=== PATIENT | female | born 1960 | race Caucasian/White ===

== ENCOUNTER 2016-08-25 10:50 | Inpatient (IN) | payer BC ==
[2016-08-25] VITALS (15 sets, daily range): BP systolic 129–186; BP diastolic 72–97
[~2016-08-25] VITALS: Ht 167.6 cm; Wt 46.9 kg
[~2016-08-25 10:50] MED LIST: MESA1.2T PO; OLAN2.5T3 PO; TIZA4TAB PO; TRAM50TA PO
[2016-08-25] MEDS ORDERED: ALBUTEROL SULFATE 2.5 MG/3 ML NEBU. NEB PRN (12:45)
[2016-08-25] MEDS ORDERED: hydrALAZINE 20 MG/ML VIAL. IVP PRN (12:45)
[2016-08-25] MEDS ORDERED: ONDANSETRON PF 4 MG/2 ML VIAL. IV PRN (12:45)
[2016-08-25 12:51] LABS: HCO3 ABG 22 mmol/L (21-28); PCO2 ABG 31 mmHg (35-46); PH ABG 7.48 (7.35-7.45); PO2 ABG 58 mmHg (75-108); SAT O2 ABG 90 % (92-99)
[2016-08-25] MEDS: PIPERACILLIN/TAZOBACTAM 3.375 GM in IV NORMAL SALINE 50ML 50 ML IV SCH ×3 (13:11→23:37)
--- NOTE | 2016-08-25 13:38 | PDOC ---
Provider Note Provider Note dictated diffuse worsening extensive multi-lobar pneumonia/ suspected empyema (multi- loculated fluid) Underlying suspected severe COPD acute hypoxic RF due to above Needs BS antibiotics BIPAP , 100% FIO2 hold intubation right sided chest tube May need intra-pleural TPA see orders HERBER PERALES MD Aug 25, 2016 13:38
[2016-08-25] MEDS ORDERED: PIP/TAZO PER PHARMACY MC PRN (13:45)
[2016-08-25] MEDS ORDERED: LIDOCAINE 1% / SOD BICARB 8.4% 20 ML VIAL. IJ ONE ×2 (14:00→15:00)
[2016-08-25 14:04] LABS: FIO2 ABG 99
--- NOTE | 2016-08-25 14:09 | PDOC1 ---
History and Physical Current Medications Current Medications Current Medications Medications (Trade) Dose Ordered Sig/Elizabeth Start Time Stop Time Status Last Admin Dose Admin Acetaminophen (Tylenol) 325 mg PRN Q6HRS PRN 08/25/16 12:45 Acetaminophen/ Hydrocodone Bitart (Lortab 5/325) 1 tab PRN Q6HRS PRN 08/25/16 12:45 Albuterol Sulfate 2.5 mg 2.5 mg PRN Q4HRS PRN 08/25/16 12:45 Hydralazine HCl (Apresoline) 10 mg PRN Q4HRS PRN 08/25/16 12:45 Levofloxacin/ Dextrose (LEVAQUIN 750mg PREMIX) 150 ml @ 100 mls/hr Q24H 08/25/16 14:00 Lidocaine/Sodium Bicarbonate (Buffered Lidocaine 1%) 20 ml STK-MED ONCE 08/25/16 14:00 08/25/16 14:01 DC Linezolid (Zyvox Premix) 300 ml @ 300 mls/hr Q12HR 08/25/16 14:00 Ondansetron HCl (Zofran) 4 mg PRN Q8HRS PRN 08/25/16 12:45 Piperacillin Sod/ Tazobactam Sod 3.375 gm/Sodium Chloride 50 ml @ 100 mls/hr Q6HRS 08/25/16 13:00 08/25/16 13:11 100 MLS/HR Piperacillin Sod/ Tazobactam Sod 1 each 1 each PRN DAILY PRN 08/25/16 13:45 Allergies Allergies Allergies Coded Allergies Type Severity Reaction Last Updated Verified No Known Drug Allergies 01/15/16 No ROS Review of System CONSTITUTIONAL: No fever or chills EYES: No recent changes SKIN: No rash or itching CARDIOVASCULAR: No chest pain, syncope, palpitations, or edema RESPIRATORY: SOB or cough GASTROINTESTINAL: No nausea, vomiting or abdominal pain NEUROLOGICAL: No headaches or weakness ENDOCRINE: No cold or heat intolerance GENITOURINARY: No urgency or frequency of urination MUSCULOSKELETAL: No back pain or joint pain LYMPHATICS: No enlarged lymph nodes PSYCHIATRIC: No anxiety or depression Physical Exam Physical Exam GEN.: apparent distress. Alert and oriented. on BIPAP HEENT: Head is normocephalic, atraumatic NECK: Supple. NO JVD LUNGS: Clear to auscultation. ANTERIOR HEART: RRR, S1, S2 present. Peripheral pulses intact ABDOMEN: Soft, nontender. Positive bowel sounds. EXTREMITIES: Without any cyanosis. NEUROLOGIC: Normal speech, normal tone PSYCHIATRIC: Normal affect, Anxious SKIN: No visible ulcerations Vitals Vitals Vital Signs Date Time Temp Pulse Resp B/P Pulse Ox O2 Delivery O2 Flow Rate FiO2 08/25/16 13:10 100 BiPAP/CPAP Labs Labs Laboratory Tests Test 08/25/16 12:46 O2 Saturation 90% (92-99) Arterial Blood pH 7.48 (7.35-7.45) Arterial Blood pCO2 at Patient Temp 31mmHg (35-46) Arterial Blood pO2 at Patient Temp 58mmHg (75-108) Arterial Blood HCO3 22mmol/L (21-28) Arterial Blood Base Excess -1mmol/L (-3-3) FiO2 99 Laboratory Tests Test 08/25/16 12:46 O2 Saturation 90% (92-99) Arterial Blood pH 7.48 (7.35-7.45) Arterial Blood pCO2 at Patient Temp 31mmHg (35-46) Arterial Blood pO2 at Patient Temp 58mmHg (75-108) Arterial Blood HCO3 22mmol/L (21-28) Arterial Blood Base Excess -1mmol/L (-3-3) FiO2 99 VTE Prophylaxis Ordered VTE Prophylaxis Devices: Yes VTE Pharmacological Prophylaxi: Yes Assessment/Plan Assessment/Plan Respiratory failure NAE CANNON MD Aug 25, 2016 14:09
[2016-08-25] MEDS: HYDROCODONE/APAP 5/325MG TABLET. PO PRN ×2 (15:42→22:12)
--- NOTE | 2016-08-25 15:47 | RAD ---
EXAM: Chest, single view. HISTORY: Chest tube placement. COMPARISON: 01/28/2013. FINDINGS: Frontal views of the chest are obtained. There are diffuse left greater than right lung multifocal infiltrates. There is a small right pleural effusion with suspected partial loculation or superimposed pleural thickening. There is a right basilar pleural drainage catheter. No pneumothorax is seen. The heart is normal in size. There is a right PICC with the tip extending cephalad in the right internal jugular vein. There are healed rib fractures. There is right greater than left hilar prominence. IMPRESSION: 1. Diffuse left greater than right lung multifocal infiltrate. Follow-up to confirm resolution. 2. Small right pleural effusion, partially loculated or associated with pleural thickening. There is a right basilar pleural drainage catheter. No pneumothorax is seen. 3. Right greater than left hilar enlargement possibly due to lymphadenopathy. 4. Right PICC extending cephalad beyond the [id number] in the right internal jugular vein. Catheter repositioning is indicated.
--- NOTE | 2016-08-25 16:03 | PDOC ---
Exam Mailing Clerk Mailing Clerk Shahrzad Global Compensation Analyst Global Compensation Analyst F [place] Pre-Procedure Diagnosis Pre-Procedure Diagnosis 55 YO female with pneumonia, possible empyema, and resp failure on BiPAP. Chest tube insertion has been requested by Pulmonary. Post-Procedure Diagnosis Post-Procedure Diagnosis Same Procedure Performed Procedure Performed Bedside ICU sono guided right chest tube insertion, with Dx thoracentesis Type of Anesthesia Type of Anesthesia Local Estimated Blood Loss EBL: Minimal Specimens Specimans 130 cc whitish-cloudy right pleural fluid to lab per Dr Brown Drain/Tubes Drains/Tubes 14F locking pigtail right chest tube---to PleurEvac. Condition of Patient Condition of Patient No change. Resp failure on BiPAP. No apparent complication. Disposition Disposition Chest tube to wall suction at -20 cm H2O. Chest tube management per Dr Brown. Full report to follow. STAT pCXR requested for chest tube position. PATRICIA BOWMAN MD Aug 25, 2016 16:03
[2016-08-25] MEDS ORDERED: INFLUENZA VAX SCREEN BY RX. MC ONE (17:00)
[2016-08-25] MEDS ORDERED: PNEUMOCOCCAL VAX SCREEN BY RX. MC ONE (17:00)
[2016-08-25] MEDS: ACETAMINOPHEN 325 MG TABLET. PO PRN (19:39)
[2016-08-26] VITALS (13 sets, daily range): BP systolic 87–174; BP diastolic 46–89
--- NOTE | 2016-08-26 02:52 | ACF ---
Admission Forms Criteria RESPIRATORY FAILURE [facility] Clinical Indications for Admission to Inpatient Care (Place 'X' for any and all applicable criteria): Hospital admission is needed for appropriate care of the patient because of acute respiratory failure or insufficiency as indicated by ANY ONE of the following(1)(2)(3)(4)(5)(6)(7)(8): [X]I. Mechanical ventilation needed (acute invasive or noninvasive) [ ]II. Severe ventilation deficit as indicated by ANY ONE of the following (9) [ ]a) Respiratory acidosis (pH less than 7.32 and partial pressure of carbon dioxide greater than 40 mm Hg (5.3 kPa)) [ ]b) Partial pressure of carbon dioxide greater than 44 mm Hg (5.9 kPa ) (new) [ ]c) Airflow measurements less than 25% of predicted (eg, peak expiratory flow rate less than 100 L/minute) [ ]d) Forced vital capacity less than 15 mL/kg of ideal body weight, or 50% decrease in vital capacity from baseline [ ]III. Noncardiac pulmonary edema not resolving with rapid emergency treatment (8) [ ]IV. Severe respiratory distress as indicated by ANY ONE of the following: [ ]a) Severe tachypnea (respiratory rate greater than 30, greater than 45 for 6-month-old, greater than 60 for ) [ ]b) Severe hypoxemia (partial pressure of oxygen less than 50 mm Hg ( 6.7 kPa) on greater than 50% oxygen or partial pressure of oxygen to FIO2 ratio less than 200) [ ]c) Mental status deterioration from respiratory disease [ ]V. Airway obstruction or inadequate protection [A](10)(11) The original [employer] content created by [employer] has been revised. The portions of the content which have been revised are identified through the use of italic text or in bold, and [employer] has neither reviewed nor approved the modified material. All other unmodified content is copyright [employer]. Please see references footnoted in the original [employer] edition 2016 Admission Criteria Met?: Yes FRANKIE GARDNER Aug 26, 2016 02:52
--- NOTE | 2016-08-26 02:59 | CONS ---
DATE OF CONSULTATION: ATTENDING PHYSICIAN: Dr. Pak. REASON FOR CONSULTATION: Respiratory failure, extensive pneumonia, empyema and marked leukocytosis. HISTORY OF PRESENT ILLNESS: The patient is a 55-year-old female who has been a smoker for 40 years. She presented to [facility] on 08/21/2016 with complaint of worsening cough and pleuritic type chest pain. She had increasing shortness of breath as well. The patient's cough was nonproductive. In the Emergency Room she was found to have extreme leukocytosis with a white cell count 57,000. She was also tachycardic and lactic acid was 4.1. Sepsis was initial diagnosis. Her chest x-ray on the showed right lower lobe pneumonia with small parapneumonic effusion. The patient has been on multiple antibiotics while at [facility] including Rocephin, Levaquin and azithromycin. However, her hospital course has continued to worsen. She underwent CT abdomen and pelvis on the , which showed right lower lobe and right middle lobe pneumonia with multiloculated parapneumonic effusion versus empyema. Today, I got a call from Dr. Osullivan who requested to be transferred to [place] ICU because of progressive dyspnea and hypoxia. Arterial blood gases obtained on high flow oxygen had shown a pO2 of only 48. The patient was placed on 100% oxygen for the transfer. I have reviewed CT chest prior to her discharge from [facility] and it shows worsening consolidation in the right lung with multiloculated right pleural effusion and also extensive infiltrate involving the left lower lobe which was a new finding compared to 3 days ago. She was hypoxic on arrival. Arterial blood gases reveal a pH of 7.47, pCO2 of 30 and a pO2 of 58 on nonrebreather mask. At present, I have placed her on a BiPAP at 100% FiO2 and she seems to be comfortable. Infectious Disease also being consulted. PAST MEDICAL HISTORY: Significant for history of suspected severe COPD. PAST SURGICAL HISTORY: Including total abdominal hysterectomy and bilateral salpingo-oophorectomy, left nephrectomy for unclear reason. ALLERGIES: None. MEDICATIONS: From [facility] overall reviewed. FAMILY HISTORY: Father is . Mother is still alive and has breast cancer. SOCIAL HISTORY: She is . She has 2 children. She smoked for 40 years and she drinks Mary Beth every night. She works for [employer]. REVIEW OF SYSTEMS: Twelve-point systems obtained. Pertinent positives discussed in history of present illness, otherwise noncontributory. All systems that were negative were reviewed as well. PHYSICAL EXAMINATION: GENERAL: She is mildly tachypneic. VITAL SIGNS: Pulse ox is 97-98% on 100% BiPAP. Blood pressure is stable. She has pulse in the 90s. LABORATORY DATA: Reviewed. White cell count was 39,000. Hemoglobin 9.6 and a platelet count of 500. Her ABGs as discussed in history of present illness with a pH of 7.49, pCO2 of 27, pO2 of 48 on 32% FiO2. Her lactic acid on admission was 4.1. BUN 38 and a creatinine of 1.6 on the 9. On BUN is 16 and a creatinine 0.9. Albumin is 1.4. IMPRESSION: 1. Acute progressive hypoxic respiratory failure, now requiring 100% FiO2 via BiPAP. This is secondary to extensive multilobar community-acquired pneumonia. I cannot exclude the possibility of aspiration while in the hospital as she did have emesis for a few days and also prior to admission. She now also has multiloculated effusion and I suspect early empyema. 2. Suspected underlying chronic obstructive pulmonary disease, could be severe. 3. Marked leukocytosis with a white cell count of 39,000. This is related to underlying extensive pneumonia and sepsis. 4. Severe protein-calorie malnutrition with an albumin level of 1.4. 5. Lactic acidosis present on admission on 08/21/2016 at [facility] related to sepsis from pneumonia. 6. Normal ejection fraction by echo with a pulmonary artery systolic pressure of 49. Suspect this is secondary to underlying chronic obstructive pulmonary disease. RECOMMENDATIONS: 1. We will need to broaden the antibiotic coverage. I will add Zyvox, Zosyn and Levaquin. 2. Consult Infectious Disease and follow their recommendation. 3. We will need a CT-guided chest tube to rule out empyema. We will review the fluid analysis as well. Rule out transudate versus exudate. 4. Bronchodilators. 5. Deep venous thrombosis prophylaxis. 6. Stress ulcer prophylaxis. 7. Continue BiPAP with 100% FiO2 and follow ABGs as needed. 8. At this point, she does not need intubation unless her clinical condition deteriorates. 9. Monitor white cell count. 10. Repeat lactic acid level. Discussed with Dr. Osullivan, discussed with RN and RT and patients . We will follow along with you. Critical care time 40 minutes. HERBER PERALES MD DR: LEXIE/jacob JOB#: [id number] / [id number] LETHA
[2016-08-26] MEDS: HYDROCODONE/APAP 5/325MG TABLET. PO PRN ×3 (04:50→17:47)
[2016-08-26] MEDS: PIPERACILLIN/TAZOBACTAM 3.375 GM in IV NORMAL SALINE 50ML 50 ML IV SCH ×4 (05:40→23:36)
[2016-08-26 06:24] LABS: BASO # 0.1 x10^3/uL (0.0-0.2); BASO % 0 % (0-3); EOS % 1 % (0-3); HEMATOCRIT 30.4 % (36.0-47.0); LYMPH # 1.3 x10^3/uL (1.0-4.8); LYMPH % 4 % (24-48); MEAN CORPUSCULAR HEMOGLOBIN 28 pg (25-35); MEAN CORPUSCULAR HGB CONC 33 g/dL (31-37); MEAN CORPUSCULAR VOLUME 85 fL (79-100); MONO % 1 % (0-9); NEUT % 94 % (31-73); PLATELET COUNT 441 x10^3/uL (140-400); RED BLOOD COUNT 3.58 x10^6/uL (3.50-5.40); RED CELL DISTRIBUTION WIDTH 14.7 % (11.5-14.5); WHITE BLOOD COUNT 32.2 x10^3/uL (4.0-11.0)
[2016-08-26 06:31] LABS: CALCIUM 7.7 mg/dL (8.5-10.1); CREATININE 0.8 mg/dL (0.6-1.0); GFR 74.5; POTASSIUM 3.2 mmol/L (3.5-5.1)
--- NOTE | 2016-08-26 06:46 | RAD ---
Ultrasound-guided right chest tube insertion Indication: 55-year-old female ICU patient with pneumonia, empyema, and respiratory failure. Right chest tube insertion has been requested by pulmonary. Anesthesia: Local only Procedure: Informed consent was obtained from the patient's . This procedure was performed bedside in the intensive care unit, with the patient in the left lateral decubitus position in her hospital bed. Preliminary ultrasound examination of right chest confirm the presence of a moderately large right pleural effusion. A skin site suitable for chest tube insertion along lateral aspect of lower right hemithorax was selected, marked, documented with a hard copy ultrasound image, and prepped and draped in the usual sterile fashion. Using aseptic technique, local anesthesia, and direct ultrasound guidance, a small micropuncture sheath was successfully introduced into low right lateral pleural space. The micropuncture sheath was removed over a guidewire. The percutaneous tract was dilated and a 14 Georgian locking pigtail chest tube was easily introduced. Approximately 130 cc of whitish-turbid fluid was aspirated through the chest tube, and was submitted to the clinical laboratory per referring digital publishing specialist' s request. The chest tube was then connected to Pleur-evac, and was secured at the skin exit site utilizing suture and sterile dressing. Patient tolerated the procedure well without apparent complication. A stat portable chest x-ray was requested for chest tube position. Impression: Successful, uneventful ultrasound-guided insertion of a 14 Georgian locking pigtail right chest tube, bedside in the intensive care unit, as described.
--- NOTE | 2016-08-26 07:38 | RAD ---
EXAM: Chest, single view. HISTORY: Pneumonia. COMPARISON: 08/25/2016. FINDINGS: A frontal view of the chest is obtained. There has been minimal interval decrease in diffuse left greater than right multifocal infiltrate. There is a stable small right pleural effusion with loculated pleural fluid or pleural thickening. There is a right basilar pleural drainage catheter unchanged in position. There is no pneumothorax. The heart is normal in size. Air is a right hilar enlargement likely due to lymphadenopathy.. There is a right PICC with the tip extending cephalad into the right internal jugular vein. There are multiple healed or healing right rib fractures. IMPRESSION: 1. Minimal interval decrease in left greater than right multifocal pneumonia. 2. Stable small right pleural effusion with suspected loculated lateral right pleural fluid component or pleural thickening. There is a right pleural drainage catheter unchanged in position. 3. Right PICC exiting cephalad into the right internal jugular vein. Catheter repositioning is indicated.
--- NOTE | 2016-08-26 08:00 | PDOC ---
Infectious Disease Note Vital Sign Vital Signs Vital Signs Date Time Temp Pulse Resp B/P Pulse Ox O2 Delivery O2 Flow Rate FiO2 08/26/16 06:00 88 27 158/68 92 Room Air 08/26/16 04:00 97.3 97.3 08/26/16 04:00 3.0 Labs Lab Laboratory Tests Test 08/25/16 12:46 08/25/16 14:45 08/26/16 05:45 O2 Saturation 90% (92-99) Arterial Blood pH 7.48 (7.35-7.45) Arterial Blood pCO2 at Patient Temp 31mmHg (35-46) Arterial Blood pO2 at Patient Temp 58mmHg (75-108) Arterial Blood HCO3 22mmol/L (21-28) Arterial Blood Base Excess -1mmol/L (-3-3) FiO2 99 Body Fluid pH 6.9 White Blood Count 32.2x10^3/uL (4.0-11.0) Red Blood Count 3.58x10^6/uL (3.50-5.40) Hemoglobin 10.0g/dL (12.0-15.5) Hematocrit 30.4% (36.0-47.0) Mean Corpuscular Volume 85fL (79-100) Mean Corpuscular Hemoglobin 28pg (25-35) Mean Corpuscular Hemoglobin Concent 33g/dL (31-37) Red Cell Distribution Width 14.7% (11.5-14.5) Platelet Count 441x10^3/uL (140-400) Neutrophils (%) (Auto) 94% (31-73) Lymphocytes (%) (Auto) 4% (24-48) Monocytes (%) (Auto) 1% (0-9) Eosinophils (%) (Auto) 1% (0-3) Basophils (%) (Auto) 0% (0-3) Neutrophils # (Auto) 30.4x10^3uL (1.8-7.7) Lymphocytes # (Auto) 1.3x10^3/uL (1.0-4.8) Monocytes # (Auto) 0.2x10^3/uL (0.0-1.1) Eosinophils # (Auto) 0.2x10^3/uL (0.0-0.7) Basophils # (Auto) 0.1x10^3/uL (0.0-0.2) Sodium Level 137mmol/L (136-145) Potassium Level 3.2mmol/L (3.5-5.1) Chloride Level 102mmol/L (98-107) Carbon Dioxide Level 27mmol/L (21-32) Anion Gap 8 (6-14) Blood Urea Nitrogen 10mg/dL (7-20) Creatinine 0.8mg/dL (0.6-1.0) Estimated GFR (Cockcroft-Gault) 74.5 Glucose Level 85mg/dL (70-99) Calcium Level 7.7mg/dL (8.5-10.1) Objective Assessment CAP Rt empyema Leukocytosis Fever Sepsis with lactic acidosis Suspected COPD Hypoxia Plan Plan of Care d/c zyvox cont levaquin and zosyn check urine strep pneumo antigen check cultures supportive care adv to quit smoking FREDA RUCKER MD Aug 26, 2016 08:00
--- NOTE | 2016-08-26 08:01 | PDOC ---
PULMONARY PROGRESS NOTES Subjective is on 02, has sob, pain on ct site. has cough, did smoke Vitals Vital Signs Date Time Temp Pulse Resp B/P Pulse Ox O2 Delivery O2 Flow Rate FiO2 08/26/16 06:00 88 27 158/68 92 Room Air 08/26/16 04:00 97.3 97.3 08/26/16 04:00 3.0 Comments ros as above, other sys otherwise neg General: Alert HEENT: Other (nc at perrl, throat nose clear) Lungs: Crackles, Other (r ct) Cardiovascular: S1, S2 Abdomen: Soft, Non-tender, Other (no mass) Neuro Exam: Alert, Oriented, No Focal Findings Extremities: No Edema Skin: Warm Labs Laboratory Tests Test 08/25/16 12:46 08/25/16 14:45 08/26/16 05:45 O2 Saturation 90% (92-99) Arterial Blood pH 7.48 (7.35-7.45) Arterial Blood pCO2 at Patient Temp 31mmHg (35-46) Arterial Blood pO2 at Patient Temp 58mmHg (75-108) Arterial Blood HCO3 22mmol/L (21-28) Arterial Blood Base Excess -1mmol/L (-3-3) FiO2 99 Body Fluid pH 6.9 White Blood Count 32.2x10^3/uL (4.0-11.0) Red Blood Count 3.58x10^6/uL (3.50-5.40) Hemoglobin 10.0g/dL (12.0-15.5) Hematocrit 30.4% (36.0-47.0) Mean Corpuscular Volume 85fL (79-100) Mean Corpuscular Hemoglobin 28pg (25-35) Mean Corpuscular Hemoglobin Concent 33g/dL (31-37) Red Cell Distribution Width 14.7% (11.5-14.5) Platelet Count 441x10^3/uL (140-400) Neutrophils (%) (Auto) 94% (31-73) Lymphocytes (%) (Auto) 4% (24-48) Monocytes (%) (Auto) 1% (0-9) Eosinophils (%) (Auto) 1% (0-3) Basophils (%) (Auto) 0% (0-3) Neutrophils # (Auto) 30.4x10^3uL (1.8-7.7) Lymphocytes # (Auto) 1.3x10^3/uL (1.0-4.8) Monocytes # (Auto) 0.2x10^3/uL (0.0-1.1) Eosinophils # (Auto) 0.2x10^3/uL (0.0-0.7) Basophils # (Auto) 0.1x10^3/uL (0.0-0.2) Sodium Level 137mmol/L (136-145) Potassium Level 3.2mmol/L (3.5-5.1) Chloride Level 102mmol/L (98-107) Carbon Dioxide Level 27mmol/L (21-32) Anion Gap 8 (6-14) Blood Urea Nitrogen 10mg/dL (7-20) Creatinine 0.8mg/dL (0.6-1.0) Estimated GFR (Cockcroft-Gault) 74.5 Glucose Level 85mg/dL (70-99) Calcium Level 7.7mg/dL (8.5-10.1) Laboratory Tests Test 08/25/16 12:46 08/25/16 14:45 08/26/16 05:45 O2 Saturation 90% (92-99) Arterial Blood pH 7.48 (7.35-7.45) Arterial Blood pCO2 at Patient Temp 31mmHg (35-46) Arterial Blood pO2 at Patient Temp 58mmHg (75-108) Arterial Blood HCO3 22mmol/L (21-28) Arterial Blood Base Excess -1mmol/L (-3-3) FiO2 99 Body Fluid pH 6.9 White Blood Count 32.2x10^3/uL (4.0-11.0) Red Blood Count 3.58x10^6/uL (3.50-5.40) Hemoglobin 10.0g/dL (12.0-15.5) Hematocrit 30.4% (36.0-47.0) Mean Corpuscular Volume 85fL (79-100) Mean Corpuscular Hemoglobin 28pg (25-35) Mean Corpuscular Hemoglobin Concent 33g/dL (31-37) Red Cell Distribution Width 14.7% (11.5-14.5) Platelet Count 441x10^3/uL (140-400) Neutrophils (%) (Auto) 94% (31-73) Lymphocytes (%) (Auto) 4% (24-48) Monocytes (%) (Auto) 1% (0-9) Eosinophils (%) (Auto) 1% (0-3) Basophils (%) (Auto) 0% (0-3) Neutrophils # (Auto) 30.4x10^3uL (1.8-7.7) Lymphocytes # (Auto) 1.3x10^3/uL (1.0-4.8) Monocytes # (Auto) 0.2x10^3/uL (0.0-1.1) Eosinophils # (Auto) 0.2x10^3/uL (0.0-0.7) Basophils # (Auto) 0.1x10^3/uL (0.0-0.2) Sodium Level 137mmol/L (136-145) Potassium Level 3.2mmol/L (3.5-5.1) Chloride Level 102mmol/L (98-107) Carbon Dioxide Level 27mmol/L (21-32) Anion Gap 8 (6-14) Blood Urea Nitrogen 10mg/dL (7-20) Creatinine 0.8mg/dL (0.6-1.0) Estimated GFR (Cockcroft-Gault) 74.5 Glucose Level 85mg/dL (70-99) Calcium Level 7.7mg/dL (8.5-10.1) Medications Active Scripts Medications Dose Route/Sig Days Date Category Zyprexa (Olanzapine) 2.5 Mg Tablet 1 Tab PO QHS 01/15/16 Reported Tizanidine Hcl 4 Mg Tablet 4 Mg PO TID PRN 01/14/16 Reported Tramadol Hcl 50 Mg Tablet 50 Mg PO BID PRN 01/14/16 Reported Lialda (Mesalamine) 1.2 Gm Tablet.dr 4 Tab PO DAILY 01/14/16 Reported Comments cxr reviewed, 1. Minimal interval decrease in left greater than right multifocal pneumonia. 2. Stable small right pleural effusion with suspected loculated lateral right pleural fluid component or pleural thickening. There is a right pleural drainage catheter unchanged in position. 3. Right PICC exiting cephalad into the right internal jugular vein. Catheter repositioning is indicated. Impression . IMPRESSION: 1. Acute hypoxic respiratory failure, This is secondary to extensive multilobar community-acquired pneumonia. I cannot exclude the possibility of aspiration while in the hospital as she did have emesis for a few days and also prior to admission. She now also has multiloculated effusion and I suspect early empyema. 2. Suspected underlying chronic obstructive pulmonary disease, could be severe. 3. leukocytosis This is related to underlying extensive pneumonia and sepsis. 4. Severe protein-calorie malnutrition with an albumin level of 1.4. 5. Lactic acidosis present on admission on 08/21/2016 at [facility] related to sepsis from pneumonia. 6. Normal ejection fraction by echo with a pulmonary artery systolic pressure of 49. Suspect this is secondary to underlying chronic obstructive pulmonary disease. 7. smoker Plan . RECOMMENDATIONS: 1. Zosyn and Levaquin. 2. Consult Infectious Disease and follow their recommendation. 3. cont chest tube. We will review the fluid analysis as well. Rule out transudate versus exudate. 4. Bronchodilators. 5. Deep venous thrombosis prophylaxis. 6. Stress ulcer prophylaxis. 7. Continue BiPAP prn 8. 02 titration 9. Monitor white cell count. 10. Repeat lactic acid level. 11. advised to quit smoking, discussed w pt, HARJINDER Price MD Aug 26, 2016 08:01
[2016-08-26 08:15] LABS: HCO3 ABG 24 mmol/L (21-28); PCO2 ABG 27 mmHg (35-46); SAT O2 ABG 88 % (92-99)
[2016-08-26 08:19] LABS: PH ABG 7.56 (7.35-7.45); PO2 ABG 50 mmHg (75-108)
[2016-08-26] MEDS: FENTANYL PF 100 MCG/2 ML VIAL. IV PRN (08:28)
[2016-08-26] MEDS: ACETAMINOPHEN 325 MG TABLET. PO PRN (08:29)
[2016-08-26] MEDS: ENOXAPARIN 40 MG/0.4 ML DISP.SYRIN. SQ SCH (08:29)
[2016-08-26] MEDS ORDERED: FLU VACC QUAD 2016-17 (36MOS+)/PF 0.5 ML SYRINGE. VAX IM ONE (09:00)
[2016-08-26] MEDS ORDERED: PNEUMOC CONJ VACC 23-VALENT 0.5 ML VIAL. VAX IM ONE (09:00)
[2016-08-26] MEDS ORDERED: POTASSIUM CHLORIDE 20 MEQ TABLET.ER. PO ONE (10:45)
--- NOTE | 2016-08-26 10:45 | PDOC ---
PROGRESS NOTES Chief Complaint Chief Complaint cc: respiratory failure e A/P SEPSIS poa EMPYEMA RT S/P thoracentesis, on chest tube Acute respiratory failure Hypoxia Leucocytosis Chronic diarrhea, ?UC Migraines Right chest pain, MSK Plan s/p chest tube, follow cx, ID following, Levaquin and zyvox supplemental oxygen Replace potassium follow blood cx Pulmonolgy following Intake and out put of chest tube pain control with fentanyl , prn norco PRN BIPAP Prognosis guarded. History of Present Illness History of Present Illness better no fever Pain worse Vitals Vitals Vital Signs Date Time Temp Pulse Resp B/P Pulse Ox O2 Delivery O2 Flow Rate FiO2 08/26/16 09:00 22 95 Nasal Cannula 4.0 08/26/16 08:00 70 153/81 08/26/16 07:00 97.4 97.4 Physical Exam General: Alert, Oriented X3 Heart: Normal S1, Normal S2 Lungs: Crackles, Other (r ct) Abdomen: Normal bowel sounds Extremities: No clubbing, No cyanosis Labs LABS Laboratory Tests Test 08/25/16 12:46 08/25/16 14:45 08/26/16 05:45 08/26/16 08:10 O2 Saturation 90% (92-99) 88% (92-99) Arterial Blood pH 7.48 (7.35-7.45) 7.56 (7.35-7.45) Arterial Blood pCO2 at Patient Temp 31mmHg (35-46) 27mmHg (35-46) Arterial Blood pO2 at Patient Temp 58mmHg (75-108) 50mmHg (75-108) Arterial Blood HCO3 22mmol/L (21-28) 24mmol/L (21-28) Arterial Blood Base Excess -1mmol/L (-3-3) 2mmol/L (-3-3) FiO2 99 1 lpm nc Body Fluid pH 6.9 White Blood Count 32.2x10^3/uL (4.0-11.0) Red Blood Count 3.58x10^6/uL (3.50-5.40) Hemoglobin 10.0g/dL (12.0-15.5) Hematocrit 30.4% (36.0-47.0) Mean Corpuscular Volume 85fL (79-100) Mean Corpuscular Hemoglobin 28pg (25-35) Mean Corpuscular Hemoglobin Concent 33g/dL (31-37) Red Cell Distribution Width 14.7% (11.5-14.5) Platelet Count 441x10^3/uL (140-400) Neutrophils (%) (Auto) 94% (31-73) Lymphocytes (%) (Auto) 4% (24-48) Monocytes (%) (Auto) 1% (0-9) Eosinophils (%) (Auto) 1% (0-3) Basophils (%) (Auto) 0% (0-3) Neutrophils # (Auto) 30.4x10^3uL (1.8-7.7) Lymphocytes # (Auto) 1.3x10^3/uL (1.0-4.8) Monocytes # (Auto) 0.2x10^3/uL (0.0-1.1) Eosinophils # (Auto) 0.2x10^3/uL (0.0-0.7) Basophils # (Auto) 0.1x10^3/uL (0.0-0.2) Sodium Level 137mmol/L (136-145) Potassium Level 3.2mmol/L (3.5-5.1) Chloride Level 102mmol/L (98-107) Carbon Dioxide Level 27mmol/L (21-32) Anion Gap 8 (6-14) Blood Urea Nitrogen 10mg/dL (7-20) Creatinine 0.8mg/dL (0.6-1.0) Estimated GFR (Cockcroft-Gault) 74.5 Glucose Level 85mg/dL (70-99) Calcium Level 7.7mg/dL (8.5-10.1) Assessment and Plan Assessmemt and Plan Problems Medical Problems: (1) CAP (community acquired pneumonia) Status: Acute (2) Empyema of lung Status: Acute Problems: Comment Review of Relevant I have reviewed the following items randi (where applicable) has been applied. Labs Laboratory Tests Test 08/25/16 12:46 08/25/16 14:45 08/26/16 05:45 08/26/16 08:10 O2 Saturation 90% (92-99) 88% (92-99) Arterial Blood pH 7.48 (7.35-7.45) 7.56 (7.35-7.45) Arterial Blood pCO2 at Patient Temp 31mmHg (35-46) 27mmHg (35-46) Arterial Blood pO2 at Patient Temp 58mmHg (75-108) 50mmHg (75-108) Arterial Blood HCO3 22mmol/L (21-28) 24mmol/L (21-28) Arterial Blood Base Excess -1mmol/L (-3-3) 2mmol/L (-3-3) FiO2 99 1 lpm nc Body Fluid pH 6.9 White Blood Count 32.2x10^3/uL (4.0-11.0) Red Blood Count 3.58x10^6/uL (3.50-5.40) Hemoglobin 10.0g/dL (12.0-15.5) Hematocrit 30.4% (36.0-47.0) Mean Corpuscular Volume 85fL (79-100) Mean Corpuscular Hemoglobin 28pg (25-35) Mean Corpuscular Hemoglobin Concent 33g/dL (31-37) Red Cell Distribution Width 14.7% (11.5-14.5) Platelet Count 441x10^3/uL (140-400) Neutrophils (%) (Auto) 94% (31-73) Lymphocytes (%) (Auto) 4% (24-48) Monocytes (%) (Auto) 1% (0-9) Eosinophils (%) (Auto) 1% (0-3) Basophils (%) (Auto) 0% (0-3) Neutrophils # (Auto) 30.4x10^3uL (1.8-7.7) Lymphocytes # (Auto) 1.3x10^3/uL (1.0-4.8) Monocytes # (Auto) 0.2x10^3/uL (0.0-1.1) Eosinophils # (Auto) 0.2x10^3/uL (0.0-0.7) Basophils # (Auto) 0.1x10^3/uL (0.0-0.2) Sodium Level 137mmol/L (136-145) Potassium Level 3.2mmol/L (3.5-5.1) Chloride Level 102mmol/L (98-107) Carbon Dioxide Level 27mmol/L (21-32) Anion Gap 8 (6-14) Blood Urea Nitrogen 10mg/dL (7-20) Creatinine 0.8mg/dL (0.6-1.0) Estimated GFR (Cockcroft-Gault) 74.5 Glucose Level 85mg/dL (70-99) Calcium Level 7.7mg/dL (8.5-10.1) Laboratory Tests Test 08/25/16 12:46 08/25/16 14:45 08/26/16 05:45 08/26/16 08:10 O2 Saturation 90% (92-99) 88% (92-99) Arterial Blood pH 7.48 (7.35-7.45) 7.56 (7.35-7.45) Arterial Blood pCO2 at Patient Temp 31mmHg (35-46) 27mmHg (35-46) Arterial Blood pO2 at Patient Temp 58mmHg (75-108) 50mmHg (75-108) Arterial Blood HCO3 22mmol/L (21-28) 24mmol/L (21-28) Arterial Blood Base Excess -1mmol/L (-3-3) 2mmol/L (-3-3) FiO2 99 1 lpm nc Body Fluid pH 6.9 White Blood Count 32.2x10^3/uL (4.0-11.0) Red Blood Count 3.58x10^6/uL (3.50-5.40) Hemoglobin 10.0g/dL (12.0-15.5) Hematocrit 30.4% (36.0-47.0) Mean Corpuscular Volume 85fL (79-100) Mean Corpuscular Hemoglobin 28pg (25-35) Mean Corpuscular Hemoglobin Concent 33g/dL (31-37) Red Cell Distribution Width 14.7% (11.5-14.5) Platelet Count 441x10^3/uL (140-400) Neutrophils (%) (Auto) 94% (31-73) Lymphocytes (%) (Auto) 4% (24-48) Monocytes (%) (Auto) 1% (0-9) Eosinophils (%) (Auto) 1% (0-3) Basophils (%) (Auto) 0% (0-3) Neutrophils # (Auto) 30.4x10^3uL (1.8-7.7) Lymphocytes # (Auto) 1.3x10^3/uL (1.0-4.8) Monocytes # (Auto) 0.2x10^3/uL (0.0-1.1) Eosinophils # (Auto) 0.2x10^3/uL (0.0-0.7) Basophils # (Auto) 0.1x10^3/uL (0.0-0.2) Sodium Level 137mmol/L (136-145) Potassium Level 3.2mmol/L (3.5-5.1) Chloride Level 102mmol/L (98-107) Carbon Dioxide Level 27mmol/L (21-32) Anion Gap 8 (6-14) Blood Urea Nitrogen 10mg/dL (7-20) Creatinine 0.8mg/dL (0.6-1.0) Estimated GFR (Cockcroft-Gault) 74.5 Glucose Level 85mg/dL (70-99) Calcium Level 7.7mg/dL (8.5-10.1) Microbiology 08/25/16 Gram Stain - Final, Complete Medications Current Medications Acetaminophen (Tylenol) 325 mg PRN Q6HRS PRN PO MILD PAIN / TEMP Last administered on 08/26/16 08:29; Start 08/25/16 at 12:45 Acetaminophen/ Hydrocodone Bitart (Lortab 5/325) 1 tab PRN Q6HRS PRN PO MODERATE TO SEVERE PAIN Last administered on 08/26/16 04:50; Start 08/25/16 at 12:45 Hydralazine HCl (Apresoline) 10 mg PRN Q4HRS PRN IVP ELEVATED BP, SEE COMMENTS Last administered on 08/26/16 05:07; Start 08/25/16 at 12:45 Ondansetron HCl (Zofran) 4 mg PRN Q8HRS PRN IV NAUSEA/VOMITING Last administered on 08/25/16 15:42; Start 08/25/16 at 12:45 Albuterol Sulfate 2.5 mg 2.5 mg PRN Q4HRS PRN NEB SHORTNESS OF BREATH; Start at 12:45 Piperacillin Sod/ Tazobactam Sod 3.375 gm/Sodium Chloride 50 ml @ 100 mls/hr Q6HRS IV Last administered on 08/26/16 05:40; Start 08/25/16 at 13:00 Linezolid (Zyvox Premix) 300 ml @ 300 mls/hr Q12HR IV Last administered on 08:31; Start 08/25/16 at 14:00 Piperacillin Sod/ Tazobactam Sod 1 each 1 each PRN DAILY PRN MC SEE COMMENTS; Start 08/25/16 at 13:45 Levofloxacin/ Dextrose (LEVAQUIN 750mg PREMIX) 150 ml @ 100 mls/hr Q24H IV Last administered on 08/25/16 15:40; Start 08/25/16 at 14:00 Lidocaine/Sodium Bicarbonate (Buffered Lidocaine 1%) 20 ml STK-MED ONCE IJ ; Start 08/25/16 at 14:00; Stop 08/25/16 at 14:01; Status DC Lidocaine/Sodium Bicarbonate (Buffered Lidocaine 1%) 5 ml 1X ONCE IJ Last administered on 08/25/16 14:59; Start 08/25/16 at 15:00; Stop 08/25/16 at 15:01 ; Status DC Info (Do NOT chart on this placeholder) 1 each 1X ONCE MC ; Start 08/25/16 at 17:00; Stop 08/25/16 at 17:01; Status UNV Pneumococcal Polyvalent Vaccine (Do NOT chart on this placeholder) 1 each 1X ONCE MC ; Start 08/25/16 at 17:00; Stop 08/25/16 at 17:01; Status UNV Influenza Virus Vaccine Quadrival (Fluarix Quad [id number] Syringe) 0.5 ml ONCE ONCE VAX IM ; Start 08/26/16 at 09:00; Stop 08/26/16 at 09:01; Status DC Pneumococcal Polyvalent Vaccine (Pneumovax 23) 0.5 ml ONCE ONCE VAX IM ; Start 08/26/16 at 09:00; Stop 08/26/16 at 09:01; Status DC Enoxaparin Sodium (Lovenox 40mg Syringe) 40 mg Q24H SQ Last administered on 08:29; Start 08/26/16 at 09:00 Fentanyl Citrate (Fentanyl 2ml Vial) 25 mcg PRN Q4HRS PRN IV PAIN Last administered on 08/26/16 08:28; Start 08/26/16 at 08:30 Active Scripts Active Reported Zyprexa (Olanzapine) 2.5 Mg Tablet 1 Tab PO QHS Tizanidine Hcl 4 Mg Tablet 4 Mg PO TID PRN Tramadol Hcl 50 Mg Tablet 50 Mg PO BID PRN Lialda (Mesalamine) 1.2 Gm Tablet. 4 Tab PO DAILY Vitals/I & O Vital Sign - Last 24 Hours 08/25/16 08/25/16 08/25/16 08/25/16 12:30 12:30 12:47 13:00 Temp 99.3 99.3 Pulse 94 94 96 Resp 38 49 46 B/P 186/91 186/91 177/97 Pulse Ox 94 96 96 O2 Delivery Nasal Cannula Nasal Cannula NonRebreather Mask BiPAP/CPAP O2 Flow Rate 6.0 6.0 08/25/16 08/25/16 08/25/16 08/25/16 13:10 13:30 14:00 14:30 Pulse 104 102 108 Resp 42 42 59 B/P 180/95 174/88 170/96 Pulse Ox 100 100 100 90 O2 Delivery BiPAP/CPAP BiPAP/CPAP BiPAP/CPAP BiPAP/CPAP 08/25/16 08/25/16 08/25/16 08/25/16 15:00 15:10 15:42 16:00 Pulse 94 Resp 42 30 B/P 171/90 Pulse Ox 100 100 98 O2 Delivery BiPAP/CPAP BiPAP/CPAP BiPAP/CPAP Nasal Cannula O2 Flow Rate 4.0 08/25/16 08/25/16 08/25/16 08/25/16 16:00 17:00 17:00 18:00 Pulse 100 100 98 Resp 35 28 23 B/P 157/82 143/72 144/73 Pulse Ox 93 97 98 97 O2 Delivery NonRebreather Mask Nasal Cannula Nasal Cannula Nasal Cannula O2 Flow Rate 6.0 4.0 4.0 08/25/16 08/25/16 08/25/16 08/25/16 19:00 20:00 20:00 20:23 Temp 98.3 98.3 Pulse 100 95 Resp 20 22 B/P 142/81 145/78 Pulse Ox 98 98 95 O2 Delivery Nasal Cannula Nasal Cannula Nasal Cannula Nasal Cannula O2 Flow Rate 3.0 3.0 3.0 3.0 08/25/16 08/25/16 08/25/16 08/25/16 21:00 22:00 22:12 23:00 Pulse 92 80 77 Resp 34 32 5 13 B/P 136/77 129/78 135/78 Pulse Ox 97 95 96 98 O2 Delivery Nasal Cannula Nasal Cannula Nasal Cannula Nasal Cannula O2 Flow Rate 2.0 2.0 3.0 2.0 08/25/16 08/26/16 08/26/16 08/26/16 23:37 00:00 00:00 01:00 Temp 97.6 97.6 Pulse 73 88 Resp 20 29 B/P 139/80 141/79 Pulse Ox 99 98 94 O2 Delivery Room Air Nasal Cannula Room Air O2 Flow Rate 3.0 08/26/16 08/26/16 08/26/16 08/26/16 02:00 03:00 04:00 04:00 Temp 97.3 97.3 Pulse 78 90 76 Resp 21 37 27 B/P 161/87 157/81 174/79 Pulse Ox 97 94 92 O2 Delivery Room Air Room Air Nasal Cannula Room Air O2 Flow Rate 3.0 08/26/16 08/26/16 08/26/16 08/26/16 04:50 05:00 05:07 06:00 Pulse 71 68 88 Resp 25 26 27 B/P 152/78 174/79 158/68 Pulse Ox 97 92 92 O2 Delivery Room Air Room Air Room Air 08/26/16 08/26/16 08/26/16 08/26/16 06:45 07:00 08:00 08:00 Temp 97.4 97.4 Pulse 70 70 Resp 22 27 27 B/P 158/68 153/81 Pulse Ox 92 92 O2 Delivery Nasal Cannula Room Air Room Air Nasal Cannula O2 Flow Rate 4.0 1.0 08/26/16 08/26/16 08/26/16 08:12 08:28 09:00 Resp 22 Pulse Ox 92 95 O2 Delivery Nasal Cannula Nasal Cannula Nasal Cannula O2 Flow Rate 1.0 3.0 4.0 Intake and Output 08/25/16 08/25/16 08/26/16 15:00 23:00 07:00 Intake Total 240 ml 1216 ml Output Total 2700 ml 1301 ml Balance -2460 ml -85 ml NAE CANNON MD Aug 26, 2016 10:45
[2016-08-26 12:19] LABS: BF TRIGLYCERIDES 60 mg/dL (.)
[2016-08-26 12:44] LABS: % BLASTS 1 % (0-0); PLT ESTIMATE INCREASED (ADEQUATE)
[2016-08-26 12:45] LABS: HYPOCHROMIA SLIGHT
[2016-08-26] MEDS ORDERED: ASCO100065 PO (13:00)
[2016-08-26] MEDS ORDERED: OLAN2.5T5 PO (13:00)
[2016-08-26] MEDS ORDERED: PRAS1TAB3 PO (13:00)
[2016-08-26] MEDS ORDERED: DIPHEN PO (13:00)
[2016-08-26] MEDS ORDERED: CETI10CA PO (13:00)
[2016-08-26] MEDS ORDERED: MESA1.2T PO (13:00)
[2016-08-26] MEDS ORDERED: LIPA1CAP PO (13:00)
[2016-08-26] MEDS ORDERED: TRAM50TA PO (13:00)
[2016-08-26] MEDS ORDERED: OMEP20TA63 PO (13:00)
[2016-08-26] MEDS ORDERED: ATROPINE PO (13:00)
[2016-08-26] MEDS ORDERED: SUMA100T3 PO (13:00)
[2016-08-26] MEDS ORDERED: TIZA4TAB PO (13:00)
[2016-08-26] MEDS ORDERED: NIAC500T9 PO (13:00)
[2016-08-26] MEDS ORDERED: CHOL10007 PO (13:00)
[2016-08-26] MEDS: MESALAMINE 1.2 GM TABLET.DR PO SCH (13:30)
--- NOTE | 2016-08-26 14:40 | PATHOLOGY ---
CYTOPATHOLOGY REPORT CLINICAL HISTORY: Right pleural effusion. SPECIMEN(S) RECEIVED: A.Pleural fluid, Right FINAL DIAGNOSIS: Right pleural fluid, ThinPrep and cell block: - No malignant cells identified. -Rare mesothelial cells identified within a background of obscuring acute inflammation. (JPM:mgliu; d/t: 08/26/16) PATHOLOGIST: Edi Reis M.D. REPORT ELECTRONICALLY SIGNED BY: Edi Reis M.D. DATE/TIME: 08/26/2016 14:20 GROSS PATHOLOGY: A. Pleural fluid, Right: The specimen is submitted unfixed, labeled "Miesha Gómez". Received by the Cytology Department is 20 mL of cloudy orange fluid. One ThinPrep slide and a cell block were prepared. (clt 08.25.2016) DATABASE DBA(S): LILLIAM Wells(ASCP) INITIAL CPT CODE(S): A; 05760, 39709 Professional services performed by [facility] [place] [address] Technical services performed by [facility] at [address] [place] [address], [address] [address]. PATIENT: MIESHA GÓMEZ /AGE: 2 1960 (Age: 55) SEX: F PATIENT #: [id number] ALT CASE #: SPECIMEN COLLECTION DATE: 08/25/2016 SPECIMEN RECEIVED DATE: 08/25/[address] [facility] [address] [place] [address], [address] [place] [address] PHONE: [phone] DIRECTOR: Wally Izquierdo M.D. * * * END OF REPORT * * *
[2016-08-26] MEDS: TRAMADOL 50 MG TABLET. PO SCH ×2 (15:36→19:57)
[2016-08-26] MEDS: PANTOPRAZOLE 40 MG TABLET. PO SCH (15:36)
[2016-08-26] MEDS: LIPASE/PROTEAS/AMYLASE 5/17/27 CAPSULE.DR. PO SCH (17:47)
--- NOTE | 2016-08-26 17:57 | HP ---
ADMIT DATE: 08/25/2016 CHIEF COMPLAINT: Shortness of breath. HISTORY OF PRESENT ILLNESS: A 55-year-old female patient with prior history of smoking, who was admitted to [facility] for cough and shortness of breath. Initial diagnosis at [facility] was sepsis and respiratory failure and also she was treated for pneumonia. The patient had leukocytosis on arrival and chest x-ray initial showed some small parapneumonic effusions. Despite broad-spectrum antibiotics such as Rocephin, Levaquin, and Zithromax, she did not get better; however, recent CT of the abdomen showed worsening right lower lobe pneumonia with multiloculated parapneumonic effusion. Also, the patient noted to have hypoxic respiratory failure. Dr. Osullivan called me to admit the patient for critical care due to her worsening respiratory status. The patient was admitted to critical care unit. Dr. Brown was consulted and notified and the patient was requiring chest tube placement due to her empyema. PAST MEDICAL HISTORY: 1. COPD. 2. Chronic diarrhea. 3. GERD. 4. Migraines. PAST SURGICAL HISTORY: Abdominal hysterectomy and bilateral salpingo-oophorectomy. ALLERGIES: None. MEDICATIONS: Reviewed and reconciled. Please see MRAD. FAMILY HISTORY: Father . Mother has a history of breast cancer. SOCIAL HISTORY: Current smoker, smokes 40 years, and also drinks alcohol occasionally. REVIEW OF SYSTEMS: Please see my electronic H and P. PHYSICAL EXAMINATION: Please see my electronic H and P. LABORATORY DATA: WBC count 39,000, hemoglobin 9.6, platelets 500. Initial ABG showed pH of 7.4, pCO2 is 27, pO2 of 48 on 32% FIO2. ASSESSMENT: 1. Acute hypoxic respiratory failure. 2. Chronic obstructive pulmonary disease. 3. Empyema. 4. Chronic diarrhea. 5. Protein malnutrition. 6. Intractable pain in right lower chest. PLAN: 1. The patient is currently on broad-spectrum antibiotics, Zosyn and Zyvox, and planning to have a chest tube placement today. Interventional radiology has been consulted. 2. Periodic nebulizations. Currently, she is on BiPAP, tolerating well. 3. We will order CBC, BMP, and Infectious Disease consult. 4. Periodic nebulizations. Pain control with fentanyl. 5. Appropriate cultures from the thoracentesis. All questions were answered to the family members at bedside. PROGNOSIS: Guarded. NAE CANNON MD DR: LIZZETTE/jacob JOB#: [id number] / [id number] LETHA
[2016-08-26] MEDS: NIACIN ER 500 MG TABLET.ER PO SCH (19:57)
[2016-08-26] MEDS: OLANZAPINE 2.5 MG TABLET PO SCH (19:57)
--- NOTE | 2016-08-26 20:12 | CONS ---
DATE OF CONSULTATION: 08/26/2016 REQUESTING PHYSICIAN: Dr. Roe. REASON FOR CONSULTATION: Empyema. HISTORY OF PRESENT ILLNESS: This is a 55-year-old female who was transferred from [facility]. The patient has been admitted there with chest pain, cough, shortness of breath. The patient had a white count of 57,000, found to have community-acquired pneumonia. The patient was started on Rocephin and azithromycin. In fact, she was not getting better, hence Dr. Osullivan had called me a couple of days ago and it was recommended to change to Zosyn. The patient subsequently was transferred here. CT scan of the chest showed multiloculated effusion. The patient had chest tube placement done and now the patient is on Zyvox, Zosyn and Levaquin. The patient denies any nausea, vomiting, diarrhea. The patient did have lactic acidosis there when she presented. Denies any headache, visual symptoms, abdominal pain, urinary symptoms or bowel symptoms. PAST MEDICAL HISTORY: Positive for suspected COPD, as the patient has a 40-year history of smoking. PAST SURGICAL HISTORY: Also has hysterectomy, bilateral salpingo-oophorectomy and left nephrectomy. SOCIAL HISTORY: Positive for smoking, no alcohol use or drug use. ALLERGIES: No known drug allergies. CURRENT MEDICATIONS: Reviewed. The patient is on Zyvox, Zosyn and Levaquin. REVIEW OF SYSTEMS: As per HPI, all other systems reviewed and are negative. The patient does have a history of weight loss. PHYSICAL EXAMINATION: GENERAL: Alert, oriented female, not in any distress. VITAL SIGNS: Stable. Temperature 97.3 ____. The patient did have a temperature elevation at [place]. Rest of vital signs is stable. HEENT: NAD. NECK: Supple, no JVP, no lymphadenopathy. LUNGS: Decreased breath sounds. HEART: S1, S2 regular. No gallop or murmur. ABDOMEN: Soft, nontender, no organomegaly. EXTREMITIES: No edema, cyanosis. SKIN: Unremarkable. NEUROLOGIC: The patient is neurologically intact. LABORATORY DATA: Her white count is 32,000, hemoglobin 10, platelets are 441,000. BUN and creatinine is normal. Her pleural fluid pH is 6.9. Cell count is pending. Culture is pending. Gram stain was negative for any organism. CT showed multiloculated effusion. The patient did have blood culture at [place] which was negative. Urine culture negative and C. diff was negative. IMPRESSION: 1. Sepsis with leukocytosis and lactic acidosis. 2. Community acquired pneumonia. 3. Right-sided empyema. 4. Hypoxemia. 5. Leukocytosis. 6. Suspected COPD. RECOMMENDATION: We will discontinue Zyvox. Continue Levaquin and Zosyn. Check urine strep pneumo antigen check, cultures. Supportive care. Advised to quit smoking and we will continue to follow. Thank you very much, Dr. Roe, for giving me the opportunity to participate in this patient's care. FREDA RUCKER MD DR: PEREZ/jacob JOB#: [id number] / [id number]
[2016-08-26] MEDS: tiZANidine 4 MG TABLET. PO SCH (20:47)
[2016-08-26] MEDS ORDERED: tiZANidine 4 MG TABLET. PO SCH (21:00)
[2016-08-27] VITALS (7 sets, daily range): BP systolic 81–152; BP diastolic 48–77
[2016-08-27] MEDS: HYDROCODONE/APAP 5/325MG TABLET. PO PRN ×4 (02:06→20:00)
[2016-08-27] MEDS: PANTOPRAZOLE 40 MG TABLET. PO SCH (06:11)
[2016-08-27] MEDS: PIPERACILLIN/TAZOBACTAM 3.375 GM in IV NORMAL SALINE 50ML 50 ML IV SCH ×4 (06:11→23:46)
[2016-08-27] MEDS: FENTANYL PF 100 MCG/2 ML VIAL. IV PRN (06:13)
[2016-08-27 06:38] LABS: BASO # 0.2 x10^3/uL (0.0-0.2); BASO % 0 % (0-3); EOS % 0 % (0-3); HEMATOCRIT 36.4 % (36.0-47.0); HEMOGLOBIN 11.9 g/dL (12.0-15.5); LYMPH % 4 % (24-48); MEAN CORPUSCULAR HEMOGLOBIN 27 pg (25-35); MEAN CORPUSCULAR HGB CONC 33 g/dL (31-37); MEAN CORPUSCULAR VOLUME 83 fL (79-100); MONO % 2 % (0-9); NEUT % 93 % (31-73); PLATELET COUNT 536 x10^3/uL (140-400); RED CELL DISTRIBUTION WIDTH 14.7 % (11.5-14.5)
[2016-08-27 06:51] LABS: CALCIUM 7.9 mg/dL (8.5-10.1); CREATININE 0.9 mg/dL (0.6-1.0); POTASSIUM 3.7 mmol/L (3.5-5.1)
--- NOTE | 2016-08-27 06:56 | PDOC ---
PULMONARY PROGRESS NOTES Subjective is on 02, has sob, pain on ct site. has cough, did smoke Vitals Vital Signs Date Time Temp Pulse Resp B/P Pulse Ox O2 Delivery O2 Flow Rate FiO2 08/27/16 06:13 20 92 Nasal Cannula 2.0 08/27/16 03:11 97.9 77 152/63 97.9 Comments ros as above, other sys otherwise neg General: Alert HEENT: Other (nc at perrl, throat nose clear) Lungs: Crackles, Other (r ct) Cardiovascular: S1, S2 Abdomen: Soft, Non-tender, Other (no mass) Neuro Exam: Alert, Oriented, No Focal Findings Extremities: No Edema Skin: Warm Labs Laboratory Tests Test 08/25/16 12:46 08/25/16 14:45 08/26/16 05:45 08/26/16 08:10 O2 Saturation 90% (92-99) 88% (92-99) Arterial Blood pH 7.48 (7.35-7.45) 7.56 (7.35-7.45) Arterial Blood pCO2 at Patient Temp 31mmHg (35-46) 27mmHg (35-46) Arterial Blood pO2 at Patient Temp 58mmHg (75-108) 50mmHg (75-108) Arterial Blood HCO3 22mmol/L (21-28) 24mmol/L (21-28) Arterial Blood Base Excess -1mmol/L (-3-3) 2mmol/L (-3-3) FiO2 99 1 lpm nc Body Fluid pH 6.9 Body Fluid Glucose <2mg/dL (.) Body Fluid Total Protein 3.3g/dL (.) Body Fluid Triglycerides 60mg/dL (.) White Blood Count 32.2x10^3/uL (4.0-11.0) Red Blood Count 3.58x10^6/uL (3.50-5.40) Hemoglobin 10.0g/dL (12.0-15.5) Hematocrit 30.4% (36.0-47.0) Mean Corpuscular Volume 85fL (79-100) Mean Corpuscular Hemoglobin 28pg (25-35) Mean Corpuscular Hemoglobin Concent 33g/dL (31-37) Red Cell Distribution Width 14.7% (11.5-14.5) Platelet Count 441x10^3/uL (140-400) Neutrophils (%) (Auto) 94% (31-73) Lymphocytes (%) (Auto) 4% (24-48) Monocytes (%) (Auto) 1% (0-9) Eosinophils (%) (Auto) 1% (0-3) Basophils (%) (Auto) 0% (0-3) Neutrophils # (Auto) 30.4x10^3uL (1.8-7.7) Lymphocytes # (Auto) 1.3x10^3/uL (1.0-4.8) Monocytes # (Auto) 0.2x10^3/uL (0.0-1.1) Eosinophils # (Auto) 0.2x10^3/uL (0.0-0.7) Basophils # (Auto) 0.1x10^3/uL (0.0-0.2) Segmented Neutrophils % 80% (35-66) Band Neutrophils % 6% (0-9) Lymphocytes % 4% (24-48) Monocytes % 1% (0-10) Metamyelocytes % 3% (0-0) Myelocytes % 5% (0-0) Blast Cells % (Manual) 1% (0-0) Platelet Estimate Increased (ADEQUATE) Hypochromasia Slight Sodium Level 137mmol/L (136-145) Potassium Level 3.2mmol/L (3.5-5.1) Chloride Level 102mmol/L (98-107) Carbon Dioxide Level 27mmol/L (21-32) Anion Gap 8 (6-14) Blood Urea Nitrogen 10mg/dL (7-20) Creatinine 0.8mg/dL (0.6-1.0) Estimated GFR (Cockcroft-Gault) 74.5 Glucose Level 85mg/dL (70-99) Calcium Level 7.7mg/dL (8.5-10.1) Laboratory Tests Test 08/26/16 08:10 O2 Saturation 88% (92-99) Arterial Blood pH 7.56 (7.35-7.45) Arterial Blood pCO2 at Patient Temp 27mmHg (35-46) Arterial Blood pO2 at Patient Temp 50mmHg (75-108) Arterial Blood HCO3 24mmol/L (21-28) Arterial Blood Base Excess 2mmol/L (-3-3) FiO2 1 lpm nc Medications Active Scripts Medications Dose Route/Sig Days Date Category Zyprexa (Olanzapine) 2.5 Mg Tablet 1 Tab PO QHS 01/15/16 Reported Tizanidine Hcl 4 Mg Tablet 4 Mg PO TID PRN 01/14/16 Reported Tramadol Hcl 50 Mg Tablet 50 Mg PO BID PRN 01/14/16 Reported Lialda (Mesalamine) 1.2 Gm Tablet.dr 4 Tab PO DAILY 01/14/16 Reported Comments cxr reviewed, 1. Minimal interval decrease in left greater than right multifocal pneumonia. 2. Stable small right pleural effusion with suspected loculated lateral right pleural fluid component or pleural thickening. There is a right pleural drainage catheter unchanged in position. 3. Right PICC exiting cephalad into the right internal jugular vein. Catheter repositioning is indicated. Impression . IMPRESSION: 1. Acute hypoxic respiratory failure, This is secondary to extensive multilobar community-acquired pneumonia. I cannot exclude the possibility of aspiration while in the hospital as she did have emesis for a few days and also prior to admission. She now also has multiloculated effusion and I suspect early empyema. 2. Suspected underlying chronic obstructive pulmonary disease, could be severe. 3. leukocytosis This is related to underlying extensive pneumonia and sepsis. 4. Severe protein-calorie malnutrition with an albumin level of 1.4. 5. Lactic acidosis present on admission on 08/21/2016 at [facility] related to sepsis from pneumonia. 6. Normal ejection fraction by echo with a pulmonary artery systolic pressure of 49. Suspect this is secondary to underlying chronic obstructive pulmonary disease. 7. smoker Plan . RECOMMENDATIONS: 1. Zosyn and Levaquin. 2. Consult Infectious Disease and follow their recommendation. 3. cont chest tube. increased suction to -30. ph, 6.9 c/w empyema 4. Bronchodilators. 5. Deep venous thrombosis prophylaxis. 6. Stress ulcer prophylaxis. 7. Continue BiPAP prn 8. 02 titration 9. Monitor white cell count. 10. advised to quit smoking, 11. pain control discussed w pt, HARJINDER Price MD Aug 27, 2016 06:56
[2016-08-27] MEDS: MESALAMINE 1.2 GM TABLET.DR PO SCH (08:38)
[2016-08-27] MEDS: TRAMADOL 50 MG TABLET. PO SCH ×2 (08:38→21:03)
[2016-08-27] MEDS: ASCORBIC ACID 500 MG TABLET PO SCH (08:38)
[2016-08-27] MEDS: ENOXAPARIN 40 MG/0.4 ML DISP.SYRIN. SQ SCH (08:39)
[2016-08-27] MEDS ORDERED: ONDANSETRON PF 4 MG/2 ML VIAL. IV PRN (08:42)
[2016-08-27] MEDS ORDERED: CALCIUM CARB PO SCH (09:00)
[2016-08-27] MEDS ORDERED: PRASTERONE PO SCH (09:00)
--- NOTE | 2016-08-27 09:03 | RAD ---
Exam: AP portable chest. History: Respiratory failure, shortness of air. Comparison: 08/26/2016. Findings: Cardiac silhouette appears within normal limits for size. There has been adjustment of the right-sided PICC line with tip projecting at superior vena cava. Pigtail catheter at the right lung base is unchanged. Right airspace disease is fairly similar to previous study. There is some interval improvement in the left interstitial infiltrate. No pneumothorax is seen. Impression: 1. Interval adjustment of PICC line. 2. Interval improvement in left airspace disease. 3. No interval change in appearance of the right chest.
--- NOTE | 2016-08-27 11:07 | PDOC ---
PROGRESS NOTES Chief Complaint Chief Complaint cc: respiratory failure e A/P SEPSIS poa EMPYEMA RT S/P thoracentesis, on chest tube Acute respiratory failure Hypoxia Leucocytosis Chronic diarrhea, ?UC Migraines Right chest pain, MSK History of Present Illness History of Present Illness HOarse voice Tolerable pain from chest tube NO fevers WBC 54 from 32, platelets 536 Vitals Vitals Vital Signs Date Time Temp Pulse Resp B/P Pulse Ox O2 Delivery O2 Flow Rate FiO2 08/27/16 10:33 97.7 91 19 137/77 93 Nasal Cannula 2.0 97.7 Physical Exam General: Alert, Oriented X3 Heart: Normal S1, Normal S2 Lungs: Crackles, Other (r ct) Abdomen: Normal bowel sounds Extremities: No clubbing, No cyanosis Labs LABS Laboratory Tests Test 08/27/16 06:00 White Blood Count 54.0x10^3/uL (4.0-11.0) Red Blood Count 4.40x10^6/uL (3.50-5.40) Hemoglobin 11.9g/dL (12.0-15.5) Hematocrit 36.4% (36.0-47.0) Mean Corpuscular Volume 83fL (79-100) Mean Corpuscular Hemoglobin 27pg (25-35) Mean Corpuscular Hemoglobin Concent 33g/dL (31-37) Red Cell Distribution Width 14.7% (11.5-14.5) Platelet Count 536x10^3/uL (140-400) Neutrophils (%) (Auto) 93% (31-73) Lymphocytes (%) (Auto) 4% (24-48) Monocytes (%) (Auto) 2% (0-9) Eosinophils (%) (Auto) 0% (0-3) Basophils (%) (Auto) 0% (0-3) Neutrophils # (Auto) 50.4x10^3uL (1.8-7.7) Lymphocytes # (Auto) 2.0x10^3/uL (1.0-4.8) Monocytes # (Auto) 1.2x10^3/uL (0.0-1.1) Eosinophils # (Auto) 0.2x10^3/uL (0.0-0.7) Basophils # (Auto) 0.2x10^3/uL (0.0-0.2) Sodium Level 134mmol/L (136-145) Potassium Level 3.7mmol/L (3.5-5.1) Chloride Level 99mmol/L (98-107) Carbon Dioxide Level 24mmol/L (21-32) Anion Gap 11 (6-14) Blood Urea Nitrogen 12mg/dL (7-20) Creatinine 0.9mg/dL (0.6-1.0) Estimated GFR (Cockcroft-Gault) 65.0 Glucose Level 73mg/dL (70-99) Calcium Level 7.9mg/dL (8.5-10.1) Review of Systems Review of Systems no inc in soa or cp or fevers Assessment and Plan Assessmemt and Plan CPM LAbs Follow specialists recs Problems Medical Problems: (1) CAP (community acquired pneumonia) Status: Acute (2) Empyema of lung Status: Acute Problems: Comment Review of Relevant I have reviewed the following items randi (where applicable) has been applied. Labs Laboratory Tests Test 08/25/16 12:46 08/25/16 14:45 08/26/16 05:45 08/26/16 08:10 O2 Saturation 90% (92-99) 88% (92-99) Arterial Blood pH 7.48 (7.35-7.45) 7.56 (7.35-7.45) Arterial Blood pCO2 at Patient Temp 31mmHg (35-46) 27mmHg (35-46) Arterial Blood pO2 at Patient Temp 58mmHg (75-108) 50mmHg (75-108) Arterial Blood HCO3 22mmol/L (21-28) 24mmol/L (21-28) Arterial Blood Base Excess -1mmol/L (-3-3) 2mmol/L (-3-3) FiO2 99 1 lpm nc Body Fluid pH 6.9 Body Fluid Glucose <2mg/dL (.) Body Fluid Total Protein 3.3g/dL (.) Body Fluid Triglycerides 60mg/dL (.) White Blood Count 32.2x10^3/uL (4.0-11.0) Red Blood Count 3.58x10^6/uL (3.50-5.40) Hemoglobin 10.0g/dL (12.0-15.5) Hematocrit 30.4% (36.0-47.0) Mean Corpuscular Volume 85fL (79-100) Mean Corpuscular Hemoglobin 28pg (25-35) Mean Corpuscular Hemoglobin Concent 33g/dL (31-37) Red Cell Distribution Width 14.7% (11.5-14.5) Platelet Count 441x10^3/uL (140-400) Neutrophils (%) (Auto) 94% (31-73) Lymphocytes (%) (Auto) 4% (24-48) Monocytes (%) (Auto) 1% (0-9) Eosinophils (%) (Auto) 1% (0-3) Basophils (%) (Auto) 0% (0-3) Neutrophils # (Auto) 30.4x10^3uL (1.8-7.7) Lymphocytes # (Auto) 1.3x10^3/uL (1.0-4.8) Monocytes # (Auto) 0.2x10^3/uL (0.0-1.1) Eosinophils # (Auto) 0.2x10^3/uL (0.0-0.7) Basophils # (Auto) 0.1x10^3/uL (0.0-0.2) Segmented Neutrophils % 80% (35-66) Band Neutrophils % 6% (0-9) Lymphocytes % 4% (24-48) Monocytes % 1% (0-10) Metamyelocytes % 3% (0-0) Myelocytes % 5% (0-0) Blast Cells % (Manual) 1% (0-0) Platelet Estimate Increased (ADEQUATE) Hypochromasia Slight Sodium Level 137mmol/L (136-145) Potassium Level 3.2mmol/L (3.5-5.1) Chloride Level 102mmol/L (98-107) Carbon Dioxide Level 27mmol/L (21-32) Anion Gap 8 (6-14) Blood Urea Nitrogen 10mg/dL (7-20) Creatinine 0.8mg/dL (0.6-1.0) Estimated GFR (Cockcroft-Gault) 74.5 Glucose Level 85mg/dL (70-99) Calcium Level 7.7mg/dL (8.5-10.1) Test 08/27/16 06:00 White Blood Count 54.0x10^3/uL (4.0-11.0) Red Blood Count 4.40x10^6/uL (3.50-5.40) Hemoglobin 11.9g/dL (12.0-15.5) Hematocrit 36.4% (36.0-47.0) Mean Corpuscular Volume 83fL (79-100) Mean Corpuscular Hemoglobin 27pg (25-35) Mean Corpuscular Hemoglobin Concent 33g/dL (31-37) Red Cell Distribution Width 14.7% (11.5-14.5) Platelet Count 536x10^3/uL (140-400) Neutrophils (%) (Auto) 93% (31-73) Lymphocytes (%) (Auto) 4% (24-48) Monocytes (%) (Auto) 2% (0-9) Eosinophils (%) (Auto) 0% (0-3) Basophils (%) (Auto) 0% (0-3) Neutrophils # (Auto) 50.4x10^3uL (1.8-7.7) Lymphocytes # (Auto) 2.0x10^3/uL (1.0-4.8) Monocytes # (Auto) 1.2x10^3/uL (0.0-1.1) Eosinophils # (Auto) 0.2x10^3/uL (0.0-0.7) Basophils # (Auto) 0.2x10^3/uL (0.0-0.2) Sodium Level 134mmol/L (136-145) Potassium Level 3.7mmol/L (3.5-5.1) Chloride Level 99mmol/L (98-107) Carbon Dioxide Level 24mmol/L (21-32) Anion Gap 11 (6-14) Blood Urea Nitrogen 12mg/dL (7-20) Creatinine 0.9mg/dL (0.6-1.0) Estimated GFR (Cockcroft-Gault) 65.0 Glucose Level 73mg/dL (70-99) Calcium Level 7.9mg/dL (8.5-10.1) Laboratory Tests Test 08/27/16 06:00 White Blood Count 54.0x10^3/uL (4.0-11.0) Red Blood Count 4.40x10^6/uL (3.50-5.40) Hemoglobin 11.9g/dL (12.0-15.5) Hematocrit 36.4% (36.0-47.0) Mean Corpuscular Volume 83fL (79-100) Mean Corpuscular Hemoglobin 27pg (25-35) Mean Corpuscular Hemoglobin Concent 33g/dL (31-37) Red Cell Distribution Width 14.7% (11.5-14.5) Platelet Count 536x10^3/uL (140-400) Neutrophils (%) (Auto) 93% (31-73) Lymphocytes (%) (Auto) 4% (24-48) Monocytes (%) (Auto) 2% (0-9) Eosinophils (%) (Auto) 0% (0-3) Basophils (%) (Auto) 0% (0-3) Neutrophils # (Auto) 50.4x10^3uL (1.8-7.7) Lymphocytes # (Auto) 2.0x10^3/uL (1.0-4.8) Monocytes # (Auto) 1.2x10^3/uL (0.0-1.1) Eosinophils # (Auto) 0.2x10^3/uL (0.0-0.7) Basophils # (Auto) 0.2x10^3/uL (0.0-0.2) Sodium Level 134mmol/L (136-145) Potassium Level 3.7mmol/L (3.5-5.1) Chloride Level 99mmol/L (98-107) Carbon Dioxide Level 24mmol/L (21-32) Anion Gap 11 (6-14) Blood Urea Nitrogen 12mg/dL (7-20) Creatinine 0.9mg/dL (0.6-1.0) Estimated GFR (Cockcroft-Gault) 65.0 Glucose Level 73mg/dL (70-99) Calcium Level 7.9mg/dL (8.5-10.1) Microbiology 08/25/16 Anaerobic/Aerobic Culture, Resulted Pending 08/25/16 Anaerobic Culture Result 1 (BRUCE), Resulted Pending 08/25/16 Aerobic Culture - Preliminary, Resulted 08/25/16 Aerobic Culture Result 1 (BRUCE) - Preliminary, Resulted Medications Current Medications Acetaminophen (Tylenol) 325 mg PRN Q6HRS PRN PO MILD PAIN / TEMP Last administered on 08/26/16 08:29; Start 08/25/16 at 12:45 Acetaminophen/ Hydrocodone Bitart (Lortab 5/325) 1 tab PRN Q6HRS PRN PO MODERATE TO SEVERE PAIN Last administered on 08/27/16 02:06; Start 08/25/16 at 12:45 Hydralazine HCl (Apresoline) 10 mg PRN Q4HRS PRN IVP ELEVATED BP, SEE COMMENTS Last administered on 08/26/16 05:07; Start 08/25/16 at 12:45 Ondansetron HCl (Zofran) 4 mg PRN Q8HRS PRN IV NAUSEA/VOMITING Last administered on 08/25/16 15:42; Start 08/25/16 at 12:45; Stop 08/27/16 at 08:44 ; Status DC Albuterol Sulfate 2.5 mg 2.5 mg PRN Q4HRS PRN NEB SHORTNESS OF BREATH; Start at 12:45 Piperacillin Sod/ Tazobactam Sod 3.375 gm/Sodium Chloride 50 ml @ 100 mls/hr Q6HRS IV Last administered on 08/27/16 06:11; Start 08/25/16 at 13:00 Linezolid (Zyvox Premix) 300 ml @ 300 mls/hr Q12HR IV Last administered on 08:39; Start 08/25/16 at 14:00 Piperacillin Sod/ Tazobactam Sod 1 each 1 each PRN DAILY PRN MC SEE COMMENTS; Start 08/25/16 at 13:45 Levofloxacin/ Dextrose (LEVAQUIN 750mg PREMIX) 150 ml @ 100 mls/hr Q24H IV Last administered on 08/26/16 15:36; Start 08/25/16 at 14:00 Lidocaine/Sodium Bicarbonate (Buffered Lidocaine 1%) 20 ml STK-MED ONCE IJ ; Start 08/25/16 at 14:00; Stop 08/25/16 at 14:01; Status DC Lidocaine/Sodium Bicarbonate (Buffered Lidocaine 1%) 5 ml 1X ONCE IJ Last administered on 08/25/16 14:59; Start 08/25/16 at 15:00; Stop 08/25/16 at 15:01 ; Status DC Info (Do NOT chart on this placeholder) 1 each 1X ONCE MC ; Start 08/25/16 at 17:00; Stop 08/25/16 at 17:01; Status UNV Pneumococcal Polyvalent Vaccine (Do NOT chart on this placeholder) 1 each 1X ONCE MC ; Start 08/25/16 at 17:00; Stop 08/25/16 at 17:01; Status UNV Influenza Virus Vaccine Quadrival (Fluarix Quad [id number] Syringe) 0.5 ml ONCE ONCE VAX IM ; Start 08/26/16 at 09:00; Stop 08/26/16 at 09:01; Status DC Pneumococcal Polyvalent Vaccine (Pneumovax 23) 0.5 ml ONCE ONCE VAX IM ; Start 08/26/16 at 09:00; Stop 08/26/16 at 09:01; Status DC Enoxaparin Sodium (Lovenox 40mg Syringe) 40 mg Q24H SQ Last administered on 08:39; Start 08/26/16 at 09:00 Fentanyl Citrate (Fentanyl 2ml Vial) 25 mcg PRN Q4HRS PRN IV PAIN Last administered on 08/27/16 06:13; Start 08/26/16 at 08:30 Potassium Chloride (Klor-Con) 40 meq 1X ONCE PO Last administered on 11:24; Start 08/26/16 at 10:45; Stop 08/26/16 at 10:49; Status DC Mesalamine (Lialda) 4.8 gm DAILY06 PO Last administered on 08/27/16 08:38; Start 08/26/16 at 13:30 Olanzapine (Zyprexa) 2.5 mg HS PO Last administered on 08/26/16 19:57; Start 08/26/16 at 21:00 Sumatriptan Succinate (Imitrex) 100 mg PRN Q2HR PRN PO MIGRAINE HEADACHE; Start 08/26/16 at 13:30 Tizanidine HCl (Zanaflex) 4 mg QHS PO Last administered on 08/26/16 19:57; Start 08/26/16 at 21:00; Stop 08/26/16 at 21:00; Status DC Tramadol HCl (Ultram) 50 mg BID PO Last administered on 08/27/16 08:38; Start 08/26/16 at 14:00 Ascorbic Acid (Vitamin C) 1,000 mg DAILY PO Last administered on 08/27/16 08: 38; Start 08/27/16 at 09:00 Amylase/Lipase/ Protease (Zenpep 5,000) 5 cap TIDWMEALS PO Last administered on 08/26/16 17:47; Start 08/26/16 at 17:00 Niacin (Slo-Niacin) 500 mg QHS PO Last administered on 08/26/16 19:57; Start 08/26/16 at 21:00 Pantoprazole Sodium (Protonix) 40 mg DAILYAC PO Last administered on 08/27/16 06:11; Start 08/26/16 at 14:00 Non-Formulary Medication 1 tab DAILY PO ; Start 08/27/16 at 09:00; Status UNV Diphenoxylate HCl/ Atropine (Lomotil) 1 tab PRN QID PRN PO DIARRHEA; Start at 13:45 Tizanidine HCl (Zanaflex) 20 mg QHS PO Last administered on 08/26/16 20:47; Start 08/26/16 at 21:00 Acetaminophen/ Hydrocodone Bitart (Lortab 5/325) 2 tab PRN Q6HRS PRN PO PAIN Last administered on 08/27/16 06:11; Start 08/27/16 at 04:45 Ondansetron HCl (Zofran) 4 mg PRN Q6HRS PRN IV NAUSEA/VOMITING; Start 08/27/16 at 08:42 Active Scripts Active Reported [diphen/atropine] 2.5 Mg PO PRN QID PRN Prilosec Otc (Omeprazole Magnesium) 20 Mg Tablet.dr 1 Tab PO DAILY Lialda (Mesalamine) 1.2 Gm Tablet.dr 4 Tab PO DAILY06 Tizanidine Hcl 4 Mg Tablet 5 Tab PO QHS Olanzapine 2.5 Mg Tablet 2.5 Mg PO HS Zyrtec (Cetirizine Hcl) 10 Mg Capsule 10 Mg PO DAILY Dhea 50 Mg Tablet (Prasterone (Dhea)/Calcium Carb) 1 Each Tablet 1 Tab PO DAILY Niacin 500 Mg Tablet 500 Mg PO HS Vitamin D3 (Cholecalciferol (Vitamin D3)) 1,000 Unit Capsule 1,000 Unit PO DAILY Vitamin C (Ascorbic Acid) 1,000 Mg Tab.chew 1,000 Mg PO DAILY Imitrex (Sumatriptan Succinate) 100 Mg Tablet 100 Mg PO ONCE PRN Tramadol Hcl 50 Mg Tablet 4 Tab PO BID Jolie Lambert 25,000 Units Capsule (Lipase/Protease/Amylase) 1 Each Capsule.dr 1 Each PO TIDAFTMEAL Vitals/I & O Vital Sign - Last 24 Hours 08/26/16 08/26/16 08/26/16 08/26/16 11:23 12:00 15:36 16:00 Temp 97.3 97.3 97.3 97.3 Pulse 78 99 Resp 26 27 24 26 B/P 173/89 147/85 Pulse Ox 97 98 98 100 O2 Delivery Nasal Cannula Nasal Cannula Nasal Cannula Nasal Cannula O2 Flow Rate 3.0 4.0 4.0 4.0 08/26/16 08/26/16 08/26/16 08/26/16 17:47 19:00 19:02 19:57 Temp 97.9 97.9 Pulse 77 Resp 26 18 24 B/P 148/71 Pulse Ox 98 94 100 100 O2 Delivery Nasal Cannula Nasal Cannula Nasal Cannula O2 Flow Rate 4.0 2.0 08/26/16 08/26/16 08/26/16 08/27/16 20:10 20:57 23:00 02:06 Temp 96.6 96.6 Pulse 73 Resp 24 19 24 B/P 87/46 Pulse Ox 94 94 O2 Delivery Nasal Cannula Nasal Cannula Nasal Cannula O2 Flow Rate 2.0 2.0 08/27/16 08/27/16 08/27/16 08/27/16 03:01 03:06 03:11 06:11 Temp 97.2 97.9 97.2 97.9 Pulse 71 77 Resp 22 22 18 20 B/P 114/66 152/63 Pulse Ox 93 92 92 O2 Delivery Nasal Cannula Nasal Cannula Nasal Cannula Nasal Cannula O2 Flow Rate 2.0 2.0 2.0 08/27/16 08/27/16 08/27/16 08/27/16 06:13 07:00 07:11 07:11 Temp 97.9 97.9 Pulse 92 Resp 20 19 B/P 134/74 Pulse Ox 92 92 92 92 O2 Delivery Nasal Cannula Nasal Cannula Nasal Cannula Nasal Cannula O2 Flow Rate 2.0 2.0 2.0 2.0 08/27/16 08/27/16 08/27/16 08:38 09:40 10:33 Temp 97.7 97.7 Pulse 91 Resp 19 B/P 137/77 Pulse Ox 92 93 O2 Delivery Room Air Nasal Cannula Nasal Cannula O2 Flow Rate 2.0 2.0 Intake and Output 08/26/16 08/26/16 08/27/16 15:00 23:00 07:00 Intake Total 60 ml Output Total 525 ml 125 ml 1000 ml Balance -525 ml -65 ml -1000 ml ABDELRAHMAN KOENIG MD Aug 27, 2016 11:07
[2016-08-27 11:28] LABS: PLT ESTIMATE INCREASED (ADEQUATE); POLYCHROMASIA SLIGHT
[2016-08-27 11:29] LABS: ANISOCYTOSIS SLIGHT
[2016-08-27] MEDS: LIPASE/PROTEAS/AMYLASE 5/17/27 CAPSULE.DR. PO SCH ×3 (12:00→17:09)
--- NOTE | 2016-08-27 12:13 | PDOC ---
Infectious Disease Note Subjective Subjective Feeling ok Tired Denies pain, SOA at rest On 2LNC supplemental O2 ROS ROS GEN: Denies fevers, chills, sweats HEENT: Denies sore throat CV: Denies chest pain RESP: Denies shortness of air, cough GI: Denies n/v/d Vital Sign Vital Signs Vital Signs Date Time Temp Pulse Resp B/P Pulse Ox O2 Delivery O2 Flow Rate FiO2 08/27/16 12:01 93 Nasal Cannula 2.0 08/27/16 10:33 97.7 91 19 137/77 97.7 Physical Exam PHYSICAL EXAM GENERAL: Propped up in bed, sleeping HEENT: PERRL, OC/OP clear. Dentures in place NECK: Supple, no JVD, no LN LUNGS: Clear. Nonlabored. Rt CT HEART: S1S2, no gallop, no murmur ABD: Soft, NT, BS present. : Brar EXT: No edema, no cyanosis RN MED SURG: Arouses easily to name, oriented. SKIN: No rash RUE-PICC. clean Labs Lab Laboratory Tests Test 08/27/16 06:00 White Blood Count 54.0x10^3/uL (4.0-11.0) Red Blood Count 4.40x10^6/uL (3.50-5.40) Hemoglobin 11.9g/dL (12.0-15.5) Hematocrit 36.4% (36.0-47.0) Mean Corpuscular Volume 83fL (79-100) Mean Corpuscular Hemoglobin 27pg (25-35) Mean Corpuscular Hemoglobin Concent 33g/dL (31-37) Red Cell Distribution Width 14.7% (11.5-14.5) Platelet Count 536x10^3/uL (140-400) Neutrophils (%) (Auto) 93% (31-73) Lymphocytes (%) (Auto) 4% (24-48) Monocytes (%) (Auto) 2% (0-9) Eosinophils (%) (Auto) 0% (0-3) Basophils (%) (Auto) 0% (0-3) Neutrophils # (Auto) 50.4x10^3uL (1.8-7.7) Lymphocytes # (Auto) 2.0x10^3/uL (1.0-4.8) Monocytes # (Auto) 1.2x10^3/uL (0.0-1.1) Eosinophils # (Auto) 0.2x10^3/uL (0.0-0.7) Basophils # (Auto) 0.2x10^3/uL (0.0-0.2) Segmented Neutrophils % 58% (35-66) Band Neutrophils % 23% (0-9) Lymphocytes % 3% (24-48) Monocytes % 3% (0-10) Metamyelocytes % 5% (0-0) Myelocytes % 8% (0-0) Platelet Estimate Increased (ADEQUATE) Large Platelets Present Polychromasia Slight Anisocytosis Slight Sodium Level 134mmol/L (136-145) Potassium Level 3.7mmol/L (3.5-5.1) Chloride Level 99mmol/L (98-107) Carbon Dioxide Level 24mmol/L (21-32) Anion Gap 11 (6-14) Blood Urea Nitrogen 12mg/dL (7-20) Creatinine 0.9mg/dL (0.6-1.0) Estimated GFR (Cockcroft-Gault) 65.0 Glucose Level 73mg/dL (70-99) Calcium Level 7.9mg/dL (8.5-10.1) Exam: AP portable chest. History: Respiratory failure, shortness of air. Comparison: 08/26/2016. Findings: Cardiac silhouette appears within normal limits for size. There has been adjustment of the right-sided PICC line with tip projecting at superior vena cava. Pigtail catheter at the right lung base is unchanged. Right airspace disease is fairly similar to previous study. There is some interval improvement in the left interstitial infiltrate. No pneumothorax is seen. Impression: 1. Interval adjustment of PICC line. 2. Interval improvement in left airspace disease. 3. No interval change in appearance of the right chest. Micro Pleural fluid ANAEROBIC-AEROBIC CULTURE PENDING ANAEROBIC RES 1 PENDING AEROBIC CULT Preliminary Preliminary report AEROBIC RES 1 Preliminary Comment No growth after 18-24 hours. Objective Assessment CAP Right empyema. s/p chest tube placement, 08/25 Leukocytosis, worse Loose stool and h/o C-diff in past Fever. better Sepsis with lactic acidosis Suspected COPD Hypoxia Plan Plan of Care Continue Levaquin, Zosyn and Zyvox Urine strep pneumo antigen Check c-diff Add po Vanc til neg Add probiotics Monitor am labs supportive care F/u bone marrow D/w Attending Co-Sign Attending Co-Sign The patient was seen and interviewed as well as examined at the bedside. The chart was reviewed. The case was discussed. Agree with the plan of care. RUSSEL ISRAEL APRN Aug 27, 2016 12:13 NGHIA SONI MD Aug 27, 2016 14:57
[2016-08-27] MEDS: LACTOBACILLUS ACIDOPH & BULGAR 1 TABLET. PO SCH (17:09)
[2016-08-27] MEDS: VANCOMYCIN 125 MG/2.5 ML ORAL SOLUTION. PO SCH ×2 (17:09→21:03)
[2016-08-27] MEDS: OLANZAPINE 2.5 MG TABLET PO SCH (21:03)
[2016-08-27] MEDS: tiZANidine 4 MG TABLET. PO SCH (21:03)
[2016-08-27] MEDS: NIACIN ER 500 MG TABLET.ER PO SCH (21:03)
[2016-08-28] VITALS (7 sets, daily range): BP systolic 88–138; BP diastolic 54–76
[2016-08-28] MEDS ORDERED: IV NORMAL SALINE 500ML BAG 500 ML IV ONE (01:00)
--- NOTE | 2016-08-28 01:36 | CONS ---
DATE OF CONSULTATION: 08/27/2016 CONSULTATION REQUESTED BY: Nae valladares MD REASON FOR CONSULTATION: Leukocytosis with 1% blasts in a patient with pneumonia. HISTORY OF PRESENT ILLNESS: The patient is a 55-year-old female who presented to [facility] Emergency Room 08/21/2016 with complaints of worsening cough and pleuritic chest pain and dyspnea of one week duration. In the Emergency Room, she was noted to have tachycardia and elevated WBC count of 57,000 and lactic acid of 4.1. She was diagnosed with sepsis. She underwent a chest x-ray that revealed right lower lobe pneumonia with small pneumonic effusion. She underwent CT scan of the abdomen on 08/21/2016 that revealed right lower lobe pneumonia. She underwent a CT scan of the chest on 08/22/2016 that revealed multilobar pneumonia, small to moderate multiloculated right pleural effusion, which might indicate a parapneumonic effusion versus empyema. There is also evidence of mild emphysema. She was started on antibiotics, however, she has progressive dyspnea and hypoxia and hence she was transferred to [facility]. Infectious Disease and pulmonary consultation was obtained, she was started on antibiotics. She underwent right chest tube insertion on 08/25/2016, 130 mL of whitish cloudy right pleural fluid was sent to the lab for evaluation. Her WBC count on 08/26/2016 was 32.2 and on 08/27/2016, it was 54.0. In addition, there was evidence of 23% bands, 5% metamyelocytes, 8%, myelocytes, 1% blasts and hence I was asked to see the patient for further evaluation of leukocytosis. Her hemoglobin was 11.9 with a platelet count of 536. PAST MEDICAL HISTORY: COPD. PAST SURGICAL HISTORY: Total abdominal hysterectomy, bilateral salpingo-oophorectomy, and left nephrectomy. FAMILY HISTORY: Grandmother, mother and sister had breast cancer. SOCIAL HISTORY: She has history of smoking 1 pack of cigarettes per day since the age of 15. She continues to smoke and I have advised her to quit smoking. She also drinks vanessa every night. She works for [employer]. REVIEW OF SYSTEMS: A 14-point review of system was performed. Pertinent positives are mentioned in the history of present illness. Rest of the system review is negative. PHYSICAL EXAMINATION: GENERAL APPEARANCE: The patient is a 55-year-old female who is in no acute cardiorespiratory distress. VITAL SIGNS: Blood pressure 137/77, temperature 97.7. HEENT: Head, atraumatic, normocephalic. Eyes: No icterus. NECK: Supple. CHEST: Bilaterally symmetrical, decreased air entry on the right side. HEART: S1, S2 normal. ABDOMEN: Soft, nontender. No hepatosplenomegaly. CENTRAL NERVOUS SYSTEM: No focal neurological deficits. LYMPHATICS: No lymphadenopathy. SKIN: No rashes. PSYCHOLOGIC: Mood and affect are appropriate. MUSCULOSKELETAL: No joint effusions. LABORATORY DATA: On 08/27/2016, WBC 54, hemoglobin 11.9, MCV 83, platelet count 536, bands 23%, metamyelocytes 5%, myelocytes 8% and peripheral smear on 08/26/2016 revealed presence of blasts at 1%. IMPRESSION AND PLAN: 1. Severe leukocytosis with a WBC count of 54,000 on 08/27/2016 and hemoglobin of 11.9, platelet count 536,000. There was evidence of elevated bands at 23%, elevated metamyelocytes of 5%, myelocytes of 8%, and 1% blasts. With the presence of sepsis, pneumonia and empyema, this is most likely reactive process. However, in view of worsening myelocytes and the presence of blasts, I would pursue with the bone marrow aspiration and biopsy to make sure that she does not have a primary bone marrow disorder. I discussed in detail with the patient and her . She understands and agrees to proceed with further workup. All her questions were answered. 2. Pneumonia. Continue antibiotics. Appreciate ID consultation. 3. Empyema. Status post right thoracentesis and chest tube placement. 4. Sepsis with lactic acidosis. 5. Fever, improving. 6. Chronic obstructive pulmonary disease. SARAVANAN RAMIREZ MD DR: MALLORIE/jacob JOB#: [id number] / [id number] NAE Coughlin MD MTDD
[2016-08-28] MEDS: HYDROCODONE/APAP 5/325MG TABLET. PO PRN ×4 (03:13→22:07)
[2016-08-28] MEDS: PIPERACILLIN/TAZOBACTAM 3.375 GM in IV NORMAL SALINE 50ML 50 ML IV SCH ×4 (05:25→23:19)
[2016-08-28] MEDS: MESALAMINE 1.2 GM TABLET.DR PO SCH (05:25)
[2016-08-28 05:55] LABS: BASO # 0.1 x10^3/uL (0.0-0.2); BASO % 0 % (0-3); EOS % 1 % (0-3); HEMATOCRIT 31.2 % (36.0-47.0); HEMOGLOBIN 10.2 g/dL (12.0-15.5); LYMPH # 1.4 x10^3/uL (1.0-4.8); LYMPH % 3 % (24-48); MEAN CORPUSCULAR HEMOGLOBIN 28 pg (25-35); MEAN CORPUSCULAR HGB CONC 33 g/dL (31-37); MEAN CORPUSCULAR VOLUME 85 fL (79-100); MONO % 3 % (0-9); NEUT % 94 % (31-73); PLATELET COUNT 410 x10^3/uL (140-400); RED BLOOD COUNT 3.68 x10^6/uL (3.50-5.40); RED CELL DISTRIBUTION WIDTH 14.7 % (11.5-14.5)
[2016-08-28 06:16] LABS: CALCIUM 7.4 mg/dL (8.5-10.1); CREATININE 0.8 mg/dL (0.6-1.0); GFR 74.5; POTASSIUM 3.3 mmol/L (3.5-5.1)
[2016-08-28 06:18] LABS: WHITE BLOOD COUNT 47.2 x10^3/uL (4.0-11.0)
[2016-08-28] MEDS: VANCOMYCIN 125 MG/2.5 ML ORAL SOLUTION. PO SCH ×4 (08:17→20:54)
[2016-08-28] MEDS: LIPASE/PROTEAS/AMYLASE 5/17/27 CAPSULE.DR. PO SCH ×3 (08:18→17:00)
[2016-08-28] MEDS: PANTOPRAZOLE 40 MG TABLET. PO SCH (08:18)
[2016-08-28] MEDS: LACTOBACILLUS ACIDOPH & BULGAR 1 TABLET. PO SCH ×3 (08:18→17:00)
[2016-08-28] MEDS: TRAMADOL 50 MG TABLET. PO SCH ×2 (08:18→20:53)
[2016-08-28] MEDS: ASCORBIC ACID 500 MG TABLET PO SCH (08:18)
[2016-08-28] MEDS: ENOXAPARIN 40 MG/0.4 ML DISP.SYRIN. SQ SCH (08:19)
--- NOTE | 2016-08-28 08:51 | RAD ---
Exam: AP portable chest. History: Follow-up pneumonia, chest tube. Comparison: 08/27/2016. Findings: Cardiac silhouette appears within normal limits for size. The pleural catheter is unchanged as is a right-sided PICC line. Small right pleural effusion persists. Right greater than left apical pleural thickening is seen. Mild left interstitial infiltrate appears similar to previous study. Right airspace disease appears mildly improved from previous study, especially in the midlung zone. Impression: 1. Mild improvement in right airspace disease. 2. No interval change in left interstitial infiltrate.
--- NOTE | 2016-08-28 08:55 | PDOC ---
PULMONARY PROGRESS NOTES Subjective is on 02, has sob, pain on ct site. has cough, did smoke Vitals Vital Signs Date Time Temp Pulse Resp B/P Pulse Ox O2 Delivery O2 Flow Rate FiO2 08/28/16 08:18 93 Nasal Cannula 2.0 08/28/16 03:59 97.9 83 18 117/70 97.9 Comments ros as above, other sys otherwise neg General: Alert HEENT: Other (nc at perrl, throat nose clear) Lungs: Crackles, Other (r ct) Cardiovascular: S1, S2 Abdomen: Soft, Non-tender, Other (no mass) Neuro Exam: Alert, Oriented, No Focal Findings Extremities: No Edema Skin: Warm Labs Laboratory Tests Test 08/27/16 06:00 08/28/16 05:24 White Blood Count 54.0x10^3/uL (4.0-11.0) 47.2x10^3/uL (4.0-11.0) Red Blood Count 4.40x10^6/uL (3.50-5.40) 3.68x10^6/uL (3.50-5.40) Hemoglobin 11.9g/dL (12.0-15.5) 10.2g/dL (12.0-15.5) Hematocrit 36.4% (36.0-47.0) 31.2% (36.0-47.0) Mean Corpuscular Volume 83fL (79-100) 85fL (79-100) Mean Corpuscular Hemoglobin 27pg (25-35) 28pg (25-35) Mean Corpuscular Hemoglobin Concent 33g/dL (31-37) 33g/dL (31-37) Red Cell Distribution Width 14.7% (11.5-14.5) 14.7% (11.5-14.5) Platelet Count 536x10^3/uL (140-400) 410x10^3/uL (140-400) Neutrophils (%) (Auto) 93% (31-73) 94% (31-73) Lymphocytes (%) (Auto) 4% (24-48) 3% (24-48) Monocytes (%) (Auto) 2% (0-9) 3% (0-9) Eosinophils (%) (Auto) 0% (0-3) 1% (0-3) Basophils (%) (Auto) 0% (0-3) 0% (0-3) Neutrophils # (Auto) 50.4x10^3uL (1.8-7.7) 44.2x10^3uL (1.8-7.7) Lymphocytes # (Auto) 2.0x10^3/uL (1.0-4.8) 1.4x10^3/uL (1.0-4.8) Monocytes # (Auto) 1.2x10^3/uL (0.0-1.1) 1.2x10^3/uL (0.0-1.1) Eosinophils # (Auto) 0.2x10^3/uL (0.0-0.7) 0.3x10^3/uL (0.0-0.7) Basophils # (Auto) 0.2x10^3/uL (0.0-0.2) 0.1x10^3/uL (0.0-0.2) Segmented Neutrophils % 58% (35-66) Band Neutrophils % 23% (0-9) Lymphocytes % 3% (24-48) Monocytes % 3% (0-10) Metamyelocytes % 5% (0-0) Myelocytes % 8% (0-0) Platelet Estimate Increased (ADEQUATE) Large Platelets Present Polychromasia Slight Anisocytosis Slight Sodium Level 134mmol/L (136-145) 133mmol/L (136-145) Potassium Level 3.7mmol/L (3.5-5.1) 3.3mmol/L (3.5-5.1) Chloride Level 99mmol/L (98-107) 100mmol/L (98-107) Carbon Dioxide Level 24mmol/L (21-32) 25mmol/L (21-32) Anion Gap 11 (6-14) 8 (6-14) Blood Urea Nitrogen 12mg/dL (7-20) 9mg/dL (7-20) Creatinine 0.9mg/dL (0.6-1.0) 0.8mg/dL (0.6-1.0) Estimated GFR (Cockcroft-Gault) 65.0 74.5 Glucose Level 73mg/dL (70-99) 86mg/dL (70-99) Calcium Level 7.9mg/dL (8.5-10.1) 7.4mg/dL (8.5-10.1) Laboratory Tests Test 08/28/16 05:24 White Blood Count 47.2x10^3/uL (4.0-11.0) Red Blood Count 3.68x10^6/uL (3.50-5.40) Hemoglobin 10.2g/dL (12.0-15.5) Hematocrit 31.2% (36.0-47.0) Mean Corpuscular Volume 85fL (79-100) Mean Corpuscular Hemoglobin 28pg (25-35) Mean Corpuscular Hemoglobin Concent 33g/dL (31-37) Red Cell Distribution Width 14.7% (11.5-14.5) Platelet Count 410x10^3/uL (140-400) Neutrophils (%) (Auto) 94% (31-73) Lymphocytes (%) (Auto) 3% (24-48) Monocytes (%) (Auto) 3% (0-9) Eosinophils (%) (Auto) 1% (0-3) Basophils (%) (Auto) 0% (0-3) Neutrophils # (Auto) 44.2x10^3uL (1.8-7.7) Lymphocytes # (Auto) 1.4x10^3/uL (1.0-4.8) Monocytes # (Auto) 1.2x10^3/uL (0.0-1.1) Eosinophils # (Auto) 0.3x10^3/uL (0.0-0.7) Basophils # (Auto) 0.1x10^3/uL (0.0-0.2) Sodium Level 133mmol/L (136-145) Potassium Level 3.3mmol/L (3.5-5.1) Chloride Level 100mmol/L (98-107) Carbon Dioxide Level 25mmol/L (21-32) Anion Gap 8 (6-14) Blood Urea Nitrogen 9mg/dL (7-20) Creatinine 0.8mg/dL (0.6-1.0) Estimated GFR (Cockcroft-Gault) 74.5 Glucose Level 86mg/dL (70-99) Calcium Level 7.4mg/dL (8.5-10.1) Medications Active Scripts Medications Dose Route/Sig Days Date Category Zyprexa (Olanzapine) 2.5 Mg Tablet 1 Tab PO QHS 01/15/16 Reported Tizanidine Hcl 4 Mg Tablet 4 Mg PO TID PRN 01/14/16 Reported Tramadol Hcl 50 Mg Tablet 50 Mg PO BID PRN 01/14/16 Reported Lialda (Mesalamine) 1.2 Gm Tablet.dr 4 Tab PO DAILY 01/14/16 Reported Comments cxr reviewed, 1. Minimal interval decrease in left greater than right multifocal pneumonia. 2. Stable small right pleural effusion with suspected loculated lateral right pleural fluid component or pleural thickening. There is a right pleural drainage catheter unchanged in position. 3. Right PICC exiting cephalad into the right internal jugular vein. Catheter repositioning is indicated. Impression . IMPRESSION: 1. Acute hypoxic respiratory failure, This is secondary to extensive multilobar community-acquired pneumonia. I cannot exclude the possibility of aspiration while in the hospital as she did have emesis for a few days and also prior to admission. She now also has multiloculated effusion and I suspect early empyema. 2. Suspected underlying chronic obstructive pulmonary disease, could be severe. 3. leukocytosis This is related to underlying extensive pneumonia and sepsis. 4. Severe protein-calorie malnutrition with an albumin level of 1.4. 5. Lactic acidosis present on admission on 08/21/2016 at [facility] related to sepsis from pneumonia. 6. Normal ejection fraction by echo with a pulmonary artery systolic pressure of 49. Suspect this is secondary to underlying chronic obstructive pulmonary disease. 7. smoker Plan . RECOMMENDATIONS: 1. Zosyn and Levaquin. 2. Consult Infectious Disease and follow their recommendation. 3. cont chest tube. increased suction to -30. ph, 6.9 c/w empyema 4. Bronchodilators. 5. Deep venous thrombosis prophylaxis. 6. Stress ulcer prophylaxis. 7. Continue BiPAP prn 8. 02 titration 9. Monitor white cell count. 10. advised to quit smoking, 11. pain control discussed w pt, rn see my other note for today HARJINDER MORALEZ MD Aug 28, 2016 08:55
--- NOTE | 2016-08-28 09:04 | PDOC ---
PULMONARY PROGRESS NOTES Subjective is on 02, has more sob. has cp. has cough and sputum, has diarrhea, did smoke Vitals Vital Signs Date Time Temp Pulse Resp B/P Pulse Ox O2 Delivery O2 Flow Rate FiO2 08/28/16 08:18 93 Nasal Cannula 2.0 08/28/16 03:59 97.9 83 18 117/70 97.9 Comments ros as above, other sys otherwise neg General: Alert HEENT: Other (nc at perrl, throat nose clear) Lungs: Crackles, Other (r ct) Cardiovascular: S1, S2 Abdomen: Soft, Non-tender, Other (no mass) Neuro Exam: Alert, Oriented, No Focal Findings Extremities: No Edema Skin: Warm Labs Laboratory Tests Test 08/27/16 06:00 08/28/16 05:24 White Blood Count 54.0x10^3/uL (4.0-11.0) 47.2x10^3/uL (4.0-11.0) Red Blood Count 4.40x10^6/uL (3.50-5.40) 3.68x10^6/uL (3.50-5.40) Hemoglobin 11.9g/dL (12.0-15.5) 10.2g/dL (12.0-15.5) Hematocrit 36.4% (36.0-47.0) 31.2% (36.0-47.0) Mean Corpuscular Volume 83fL (79-100) 85fL (79-100) Mean Corpuscular Hemoglobin 27pg (25-35) 28pg (25-35) Mean Corpuscular Hemoglobin Concent 33g/dL (31-37) 33g/dL (31-37) Red Cell Distribution Width 14.7% (11.5-14.5) 14.7% (11.5-14.5) Platelet Count 536x10^3/uL (140-400) 410x10^3/uL (140-400) Neutrophils (%) (Auto) 93% (31-73) 94% (31-73) Lymphocytes (%) (Auto) 4% (24-48) 3% (24-48) Monocytes (%) (Auto) 2% (0-9) 3% (0-9) Eosinophils (%) (Auto) 0% (0-3) 1% (0-3) Basophils (%) (Auto) 0% (0-3) 0% (0-3) Neutrophils # (Auto) 50.4x10^3uL (1.8-7.7) 44.2x10^3uL (1.8-7.7) Lymphocytes # (Auto) 2.0x10^3/uL (1.0-4.8) 1.4x10^3/uL (1.0-4.8) Monocytes # (Auto) 1.2x10^3/uL (0.0-1.1) 1.2x10^3/uL (0.0-1.1) Eosinophils # (Auto) 0.2x10^3/uL (0.0-0.7) 0.3x10^3/uL (0.0-0.7) Basophils # (Auto) 0.2x10^3/uL (0.0-0.2) 0.1x10^3/uL (0.0-0.2) Segmented Neutrophils % 58% (35-66) Band Neutrophils % 23% (0-9) Lymphocytes % 3% (24-48) Monocytes % 3% (0-10) Metamyelocytes % 5% (0-0) Myelocytes % 8% (0-0) Platelet Estimate Increased (ADEQUATE) Large Platelets Present Polychromasia Slight Anisocytosis Slight Sodium Level 134mmol/L (136-145) 133mmol/L (136-145) Potassium Level 3.7mmol/L (3.5-5.1) 3.3mmol/L (3.5-5.1) Chloride Level 99mmol/L (98-107) 100mmol/L (98-107) Carbon Dioxide Level 24mmol/L (21-32) 25mmol/L (21-32) Anion Gap 11 (6-14) 8 (6-14) Blood Urea Nitrogen 12mg/dL (7-20) 9mg/dL (7-20) Creatinine 0.9mg/dL (0.6-1.0) 0.8mg/dL (0.6-1.0) Estimated GFR (Cockcroft-Gault) 65.0 74.5 Glucose Level 73mg/dL (70-99) 86mg/dL (70-99) Calcium Level 7.9mg/dL (8.5-10.1) 7.4mg/dL (8.5-10.1) Laboratory Tests Test 08/28/16 05:24 White Blood Count 47.2x10^3/uL (4.0-11.0) Red Blood Count 3.68x10^6/uL (3.50-5.40) Hemoglobin 10.2g/dL (12.0-15.5) Hematocrit 31.2% (36.0-47.0) Mean Corpuscular Volume 85fL (79-100) Mean Corpuscular Hemoglobin 28pg (25-35) Mean Corpuscular Hemoglobin Concent 33g/dL (31-37) Red Cell Distribution Width 14.7% (11.5-14.5) Platelet Count 410x10^3/uL (140-400) Neutrophils (%) (Auto) 94% (31-73) Lymphocytes (%) (Auto) 3% (24-48) Monocytes (%) (Auto) 3% (0-9) Eosinophils (%) (Auto) 1% (0-3) Basophils (%) (Auto) 0% (0-3) Neutrophils # (Auto) 44.2x10^3uL (1.8-7.7) Lymphocytes # (Auto) 1.4x10^3/uL (1.0-4.8) Monocytes # (Auto) 1.2x10^3/uL (0.0-1.1) Eosinophils # (Auto) 0.3x10^3/uL (0.0-0.7) Basophils # (Auto) 0.1x10^3/uL (0.0-0.2) Sodium Level 133mmol/L (136-145) Potassium Level 3.3mmol/L (3.5-5.1) Chloride Level 100mmol/L (98-107) Carbon Dioxide Level 25mmol/L (21-32) Anion Gap 8 (6-14) Blood Urea Nitrogen 9mg/dL (7-20) Creatinine 0.8mg/dL (0.6-1.0) Estimated GFR (Cockcroft-Gault) 74.5 Glucose Level 86mg/dL (70-99) Calcium Level 7.4mg/dL (8.5-10.1) Medications Active Scripts Medications Dose Route/Sig Days Date Category Zyprexa (Olanzapine) 2.5 Mg Tablet 1 Tab PO QHS 01/15/16 Reported Tizanidine Hcl 4 Mg Tablet 4 Mg PO TID PRN 01/14/16 Reported Tramadol Hcl 50 Mg Tablet 50 Mg PO BID PRN 01/14/16 Reported Lialda (Mesalamine) 1.2 Gm Tablet.dr 4 Tab PO DAILY 01/14/16 Reported Comments cxr reviewed, 1. Minimal interval decrease in left greater than right multifocal pneumonia. 2. Stable small right pleural effusion with suspected loculated lateral right pleural fluid component or pleural thickening. There is a right pleural drainage catheter unchanged in position. 3. Right PICC exiting cephalad into the right internal jugular vein. Catheter repositioning is indicated. Impression . IMPRESSION: 1. Acute hypoxic respiratory failure, This is secondary to extensive multilobar community-acquired pneumonia. I cannot exclude the possibility of aspiration while in the hospital as she did have emesis for a few days and also prior to admission. She now also has multiloculated effusion, empyema. 2. chronic obstructive pulmonary disease, could be severe. 3. leukocytosis This is related to underlying extensive pneumonia and sepsis. 4. Severe protein-calorie malnutrition with an albumin level of 1.4. 5. Lactic acidosis present on admission on 08/21/2016 at [facility] related to sepsis from pneumonia. 6. Normal ejection fraction by echo with a pulmonary artery systolic pressure of 49. Suspect this is secondary to underlying chronic obstructive pulmonary disease. 7. smoker 8. cp Plan . RECOMMENDATIONS: 1. cont Zosyn and Levaquin, zyvox and po vanc. 2. Consult Infectious Disease and follow their recommendation. 3. cont chest tube. increased suction to -30. ph, 6.9 c/w empyema 4. Bronchodilators. 5. Deep venous thrombosis prophylaxis. 6. Stress ulcer prophylaxis. 7. Continue BiPAP prn 8. 02 titration 9. Monitor white cell count. 10. advised to quit smoking, 11. pain control 12. cta. has more sob, cp, will eval pleural space too. 13. check c diff discussed w pt, rn HARJINDER MORALEZ MD Aug 28, 2016 09:04
--- NOTE | 2016-08-28 09:08 | EKG ---
[facility] [address] [place] [address] Test Date: 2016-08-28 Test Time: 09:06:39 Pat Name: ORLANDO ROONEY Department: Room: 524 1 Gender: F Flight Hostess: : 1960 Requested By: KARENA VENEGAS Order Number: [id number] Reading MD: Danilo Jackson Measurements Intervals [place] Rate: 108 P: -44 ME: 124 QRS: 29 QRSD: 86 T: 38 QT: 324 QTc: [address] Electronically Signed On 08-30-2016 9:53:43 ASSISTANT PROFESSOR OF FORESTRY by Danilo Jackson
[2016-08-28] MEDS ORDERED: NICOTINE 21MG PATCH. TD PRN (09:30)
[2016-08-28] MEDS ORDERED: CONTRAST GIVEN MC PRN (10:00)
[2016-08-28] MEDS ORDERED: IOHEXOL 300 MG/ML 75 ML VIAL IV ONE (10:15)
--- NOTE | 2016-08-28 11:01 | PDOC ---
Infectious Disease Note Subjective Subjective "rough morning" Frequent episodes of diarrhea Denies cramps/N/V Breathing alright ROS ROS GEN: Denies fevers, chills, sweats CV: Denies chest pain RESP: Denies shortness of air, cough Vital Sign Vital Signs Vital Signs Date Time Temp Pulse Resp B/P Pulse Ox O2 Delivery O2 Flow Rate FiO2 08/28/16 09:20 93 Nasal Cannula 2.0 08/28/16 07:00 97.9 103 19 136/75 97.9 Physical Exam PHYSICAL EXAM GENERAL: Propped up in bed, NAD HEENT: OP/OC pink and dry NECK: Supple, no JVD, no LN LUNGS: Clear. Right CT HEART: S1S2, no gallop, no murmur ABD: Soft, NT, BS present : [place] EXT: No edema, no cyanosis LEMON PICKER: Alert, oriented x 3, no focal neurologic deficit SKIN: No rash RUE-PICC. clean Labs Lab Laboratory Tests Test 08/28/16 05:24 White Blood Count 47.2x10^3/uL (4.0-11.0) Red Blood Count 3.68x10^6/uL (3.50-5.40) Hemoglobin 10.2g/dL (12.0-15.5) Hematocrit 31.2% (36.0-47.0) Mean Corpuscular Volume 85fL (79-100) Mean Corpuscular Hemoglobin 28pg (25-35) Mean Corpuscular Hemoglobin Concent 33g/dL (31-37) Red Cell Distribution Width 14.7% (11.5-14.5) Platelet Count 410x10^3/uL (140-400) Neutrophils (%) (Auto) 94% (31-73) Lymphocytes (%) (Auto) 3% (24-48) Monocytes (%) (Auto) 3% (0-9) Eosinophils (%) (Auto) 1% (0-3) Basophils (%) (Auto) 0% (0-3) Neutrophils # (Auto) 44.2x10^3uL (1.8-7.7) Lymphocytes # (Auto) 1.4x10^3/uL (1.0-4.8) Monocytes # (Auto) 1.2x10^3/uL (0.0-1.1) Eosinophils # (Auto) 0.3x10^3/uL (0.0-0.7) Basophils # (Auto) 0.1x10^3/uL (0.0-0.2) Sodium Level 133mmol/L (136-145) Potassium Level 3.3mmol/L (3.5-5.1) Chloride Level 100mmol/L (98-107) Carbon Dioxide Level 25mmol/L (21-32) Anion Gap 8 (6-14) Blood Urea Nitrogen 9mg/dL (7-20) Creatinine 0.8mg/dL (0.6-1.0) Estimated GFR (Cockcroft-Gault) 74.5 Glucose Level 86mg/dL (70-99) Calcium Level 7.4mg/dL (8.5-10.1) Micro Pleural fluid ANAEROBIC-AEROBIC CULTURE PENDING ANAEROBIC RES 1 PENDING AEROBIC CULT Preliminary Preliminary report AEROBIC RES 1 Preliminary Comment No growth after 18-24 hours. Objective Assessment Diarrhea - chronic problem at home - some better today CAP Right empyema. s/p chest tube placement, 08/25 Leukocytosis, better Fever. better Sepsis with lactic acidosis Suspected COPD Hypoxia Plan Plan of Care Continue, Zosyn and Zyvox and po vanc D/w Levoflox Strep pneumo antigen pending C-diff pending probiotics Monitor labs supportive care F/u bone marrow D/w Attending Co-Sign Attending Co-Sign The patient was seen and interviewed as well as examined at the bedside. The chart was reviewed. The case was discussed. Agree with the plan of care. RUSSEL ISRAEL APRN Aug 28, 2016 11:01 NGHIA SONI MD Aug 28, 2016 14:37
[2016-08-28] MEDS: CETIRIZINE HCL 10 MG TABLET PO SCH (11:50)
[2016-08-28] MEDS: CHOLECALCIFEROL (VITAMIN D3) 1,000 UNIT TABLET PO SCH (11:50)
--- NOTE | 2016-08-28 11:56 | PDOC ---
PROGRESS NOTES Chief Complaint Chief Complaint cc: respiratory failure A/P SEPSIS poa EMPYEMA RT S/P thoracentesis, on chest tube Acute respiratory failure Hypoxia Leucocytosis Chronic diarrhea, ?UC Migraines Right chest pain, MSK SMOker LEUKOCYTOSIS (50s) History of Present Illness History of Present Illness Just got back from re CT chest HOarse voice Tolerable pain from chest tube NO fevers WBC 47 now, no known blood problems Smoker chest tube remains On broad spectrum for the empyema Vitals Vitals Vital Signs Date Time Temp Pulse Resp B/P Pulse Ox O2 Delivery O2 Flow Rate FiO2 08/28/16 10:05 93 Nasal Cannula 2.0 08/28/16 07:00 97.9 103 19 136/75 97.9 Physical Exam General: Alert, Oriented X3 Heart: Normal S1, Normal S2 Lungs: Crackles, Other (r ct) Abdomen: Normal bowel sounds Extremities: No clubbing, No cyanosis Labs LABS Laboratory Tests Test 08/28/16 05:24 White Blood Count 47.2x10^3/uL (4.0-11.0) Red Blood Count 3.68x10^6/uL (3.50-5.40) Hemoglobin 10.2g/dL (12.0-15.5) Hematocrit 31.2% (36.0-47.0) Mean Corpuscular Volume 85fL (79-100) Mean Corpuscular Hemoglobin 28pg (25-35) Mean Corpuscular Hemoglobin Concent 33g/dL (31-37) Red Cell Distribution Width 14.7% (11.5-14.5) Platelet Count 410x10^3/uL (140-400) Neutrophils (%) (Auto) 94% (31-73) Lymphocytes (%) (Auto) 3% (24-48) Monocytes (%) (Auto) 3% (0-9) Eosinophils (%) (Auto) 1% (0-3) Basophils (%) (Auto) 0% (0-3) Neutrophils # (Auto) 44.2x10^3uL (1.8-7.7) Lymphocytes # (Auto) 1.4x10^3/uL (1.0-4.8) Monocytes # (Auto) 1.2x10^3/uL (0.0-1.1) Eosinophils # (Auto) 0.3x10^3/uL (0.0-0.7) Basophils # (Auto) 0.1x10^3/uL (0.0-0.2) Sodium Level 133mmol/L (136-145) Potassium Level 3.3mmol/L (3.5-5.1) Chloride Level 100mmol/L (98-107) Carbon Dioxide Level 25mmol/L (21-32) Anion Gap 8 (6-14) Blood Urea Nitrogen 9mg/dL (7-20) Creatinine 0.8mg/dL (0.6-1.0) Estimated GFR (Cockcroft-Gault) 74.5 Glucose Level 86mg/dL (70-99) Calcium Level 7.4mg/dL (8.5-10.1) Review of Systems Review of Systems NO inc SOA, no new CP, no diarrhea Assessment and Plan Assessmemt and Plan Await heme onc input re leukocytosis CPM Daily CBC Follow pulmo recs Follow cx Problems Medical Problems: (1) CAP (community acquired pneumonia) Status: Acute (2) Empyema of lung Status: Acute Problems: Comment Review of Relevant I have reviewed the following items randi (where applicable) has been applied. Labs Laboratory Tests Test 08/27/16 06:00 08/28/16 05:24 White Blood Count 54.0x10^3/uL (4.0-11.0) 47.2x10^3/uL (4.0-11.0) Red Blood Count 4.40x10^6/uL (3.50-5.40) 3.68x10^6/uL (3.50-5.40) Hemoglobin 11.9g/dL (12.0-15.5) 10.2g/dL (12.0-15.5) Hematocrit 36.4% (36.0-47.0) 31.2% (36.0-47.0) Mean Corpuscular Volume 83fL (79-100) 85fL (79-100) Mean Corpuscular Hemoglobin 27pg (25-35) 28pg (25-35) Mean Corpuscular Hemoglobin Concent 33g/dL (31-37) 33g/dL (31-37) Red Cell Distribution Width 14.7% (11.5-14.5) 14.7% (11.5-14.5) Platelet Count 536x10^3/uL (140-400) 410x10^3/uL (140-400) Neutrophils (%) (Auto) 93% (31-73) 94% (31-73) Lymphocytes (%) (Auto) 4% (24-48) 3% (24-48) Monocytes (%) (Auto) 2% (0-9) 3% (0-9) Eosinophils (%) (Auto) 0% (0-3) 1% (0-3) Basophils (%) (Auto) 0% (0-3) 0% (0-3) Neutrophils # (Auto) 50.4x10^3uL (1.8-7.7) 44.2x10^3uL (1.8-7.7) Lymphocytes # (Auto) 2.0x10^3/uL (1.0-4.8) 1.4x10^3/uL (1.0-4.8) Monocytes # (Auto) 1.2x10^3/uL (0.0-1.1) 1.2x10^3/uL (0.0-1.1) Eosinophils # (Auto) 0.2x10^3/uL (0.0-0.7) 0.3x10^3/uL (0.0-0.7) Basophils # (Auto) 0.2x10^3/uL (0.0-0.2) 0.1x10^3/uL (0.0-0.2) Segmented Neutrophils % 58% (35-66) Band Neutrophils % 23% (0-9) Lymphocytes % 3% (24-48) Monocytes % 3% (0-10) Metamyelocytes % 5% (0-0) Myelocytes % 8% (0-0) Platelet Estimate Increased (ADEQUATE) Large Platelets Present Polychromasia Slight Anisocytosis Slight Sodium Level 134mmol/L (136-145) 133mmol/L (136-145) Potassium Level 3.7mmol/L (3.5-5.1) 3.3mmol/L (3.5-5.1) Chloride Level 99mmol/L (98-107) 100mmol/L (98-107) Carbon Dioxide Level 24mmol/L (21-32) 25mmol/L (21-32) Anion Gap 11 (6-14) 8 (6-14) Blood Urea Nitrogen 12mg/dL (7-20) 9mg/dL (7-20) Creatinine 0.9mg/dL (0.6-1.0) 0.8mg/dL (0.6-1.0) Estimated GFR (Cockcroft-Gault) 65.0 74.5 Glucose Level 73mg/dL (70-99) 86mg/dL (70-99) Calcium Level 7.9mg/dL (8.5-10.1) 7.4mg/dL (8.5-10.1) Laboratory Tests Test 08/28/16 05:24 White Blood Count 47.2x10^3/uL (4.0-11.0) Red Blood Count 3.68x10^6/uL (3.50-5.40) Hemoglobin 10.2g/dL (12.0-15.5) Hematocrit 31.2% (36.0-47.0) Mean Corpuscular Volume 85fL (79-100) Mean Corpuscular Hemoglobin 28pg (25-35) Mean Corpuscular Hemoglobin Concent 33g/dL (31-37) Red Cell Distribution Width 14.7% (11.5-14.5) Platelet Count 410x10^3/uL (140-400) Neutrophils (%) (Auto) 94% (31-73) Lymphocytes (%) (Auto) 3% (24-48) Monocytes (%) (Auto) 3% (0-9) Eosinophils (%) (Auto) 1% (0-3) Basophils (%) (Auto) 0% (0-3) Neutrophils # (Auto) 44.2x10^3uL (1.8-7.7) Lymphocytes # (Auto) 1.4x10^3/uL (1.0-4.8) Monocytes # (Auto) 1.2x10^3/uL (0.0-1.1) Eosinophils # (Auto) 0.3x10^3/uL (0.0-0.7) Basophils # (Auto) 0.1x10^3/uL (0.0-0.2) Sodium Level 133mmol/L (136-145) Potassium Level 3.3mmol/L (3.5-5.1) Chloride Level 100mmol/L (98-107) Carbon Dioxide Level 25mmol/L (21-32) Anion Gap 8 (6-14) Blood Urea Nitrogen 9mg/dL (7-20) Creatinine 0.8mg/dL (0.6-1.0) Estimated GFR (Cockcroft-Gault) 74.5 Glucose Level 86mg/dL (70-99) Calcium Level 7.4mg/dL (8.5-10.1) Microbiology 08/25/16 Anaerobic/Aerobic Culture, Resulted Pending 08/25/16 Anaerobic Culture Result 1 (BRUCE), Resulted Pending 08/25/16 Aerobic Culture - Final, Resulted 08/25/16 Aerobic Culture Result 1 (BRUCE) - Final, Resulted Medications Current Medications Acetaminophen (Tylenol) 325 mg PRN Q6HRS PRN PO MILD PAIN / TEMP Last administered on 08/26/16 08:29; Start 08/25/16 at 12:45 Acetaminophen/ Hydrocodone Bitart (Lortab 5/325) 1 tab PRN Q6HRS PRN PO MODERATE PAIN Last administered on 08/27/16 02:06; Start 08/25/16 at 12:45 Hydralazine HCl (Apresoline) 10 mg PRN Q4HRS PRN IVP ELEVATED BP, SEE COMMENTS Last administered on 08/26/16 05:07; Start 08/25/16 at 12:45 Ondansetron HCl (Zofran) 4 mg PRN Q8HRS PRN IV NAUSEA/VOMITING Last administered on 08/25/16 15:42; Start 08/25/16 at 12:45; Stop 08/27/16 at 08:44 ; Status DC Albuterol Sulfate 2.5 mg 2.5 mg PRN Q4HRS PRN NEB SHORTNESS OF BREATH; Start at 12:45 Piperacillin Sod/ Tazobactam Sod 3.375 gm/Sodium Chloride 50 ml @ 100 mls/hr Q6HRS IV Last administered on 08/28/16 11:51; Start 08/25/16 at 13:00 Linezolid (Zyvox Premix) 300 ml @ 300 mls/hr Q12HR IV Last administered on 1/ 15/17at 08:16; Start 08/25/16 at 14:00 Piperacillin Sod/ Tazobactam Sod 1 each 1 each PRN DAILY PRN MC SEE COMMENTS; Start 08/25/16 at 13:45; Stop 08/27/16 at 12:41; Status DC Levofloxacin/ Dextrose (LEVAQUIN 750mg PREMIX) 150 ml @ 100 mls/hr Q24H IV Last administered on 08/27/16 14:32; Start 08/25/16 at 14:00 Lidocaine/Sodium Bicarbonate (Buffered Lidocaine 1%) 20 ml STK-MED ONCE IJ ; Start 08/25/16 at 14:00; Stop 08/25/16 at 14:01; Status DC Lidocaine/Sodium Bicarbonate (Buffered Lidocaine 1%) 5 ml 1X ONCE IJ Last administered on 08/25/16 14:59; Start 08/25/16 at 15:00; Stop 08/25/16 at 15:01 ; Status DC Info (Do NOT chart on this placeholder) 1 each 1X ONCE MC ; Start 08/25/16 at 17:00; Stop 08/25/16 at 17:01; Status UNV Pneumococcal Polyvalent Vaccine (Do NOT chart on this placeholder) 1 each 1X ONCE MC ; Start 08/25/16 at 17:00; Stop 08/25/16 at 17:01; Status UNV Influenza Virus Vaccine Quadrival (Fluarix Quad [id number] Syringe) 0.5 ml ONCE ONCE VAX IM ; Start 08/26/16 at 09:00; Stop 08/26/16 at 09:01; Status DC Pneumococcal Polyvalent Vaccine (Pneumovax 23) 0.5 ml ONCE ONCE VAX IM ; Start 08/26/16 at 09:00; Stop 08/26/16 at 09:01; Status DC Enoxaparin Sodium (Lovenox 40mg Syringe) 40 mg Q24H SQ Last administered on 08:19; Start 08/26/16 at 09:00 Fentanyl Citrate (Fentanyl 2ml Vial) 25 mcg PRN Q4HRS PRN IV PAIN Last administered on 08/27/16 06:13; Start 08/26/16 at 08:30 Potassium Chloride (Klor-Con) 40 meq 1X ONCE PO Last administered on 11:24; Start 08/26/16 at 10:45; Stop 08/26/16 at 10:49; Status DC Mesalamine (Lialda) 4.8 gm DAILY06 PO Last administered on 08/28/16 05:25; Start 08/26/16 at 13:30 Olanzapine (Zyprexa) 2.5 mg HS PO Last administered on 08/27/16 21:03; Start 08/26/16 at 21:00 Sumatriptan Succinate (Imitrex) 100 mg PRN Q2HR PRN PO MIGRAINE HEADACHE; Start 08/26/16 at 13:30 Tizanidine HCl (Zanaflex) 4 mg QHS PO Last administered on 08/26/16 19:57; Start 08/26/16 at 21:00; Stop 08/26/16 at 21:00; Status DC Tramadol HCl (Ultram) 50 mg BID PO Last administered on 08/28/16 08:18; Start 08/26/16 at 14:00 Ascorbic Acid (Vitamin C) 1,000 mg DAILY PO Last administered on 08/28/16 08: 18; Start 08/27/16 at 09:00 Amylase/Lipase/ Protease (Zenpep 5,000) 5 cap TIDWMEALS PO Last administered on 08/28/16 11:50; Start 08/26/16 at 17:00 Niacin (Slo-Niacin) 500 mg QHS PO Last administered on 08/27/16 21:03; Start 08/26/16 at 21:00 Pantoprazole Sodium (Protonix) 40 mg DAILYAC PO Last administered on 08/28/16 08:18; Start 08/26/16 at 14:00 Non-Formulary Medication 1 tab DAILY PO ; Start 08/27/16 at 09:00; Status UNV Diphenoxylate HCl/ Atropine (Lomotil) 1 tab PRN QID PRN PO DIARRHEA; Start at 13:45 Tizanidine HCl (Zanaflex) 20 mg QHS PO Last administered on 08/27/16 21:03; Start 08/26/16 at 21:00 Acetaminophen/ Hydrocodone Bitart (Lortab 5/325) 2 tab PRN Q6HRS PRN PO SEVERE PAIN Last administered on 08/28/16 09:01; Start 08/27/16 at 04:45 Ondansetron HCl (Zofran) 4 mg PRN Q6HRS PRN IV NAUSEA/VOMITING; Start 08/27/16 at 08:42 Vancomycin HCl 125 mg [id number] PO Last administered on 08/28/16 08:17; Start at 16:00 Lactobacillus Acidophilus 1 tab 1 tab TIDWMEALS PO Last administered on 11:50; Start 08/27/16 at 17:00 Sodium Chloride (Iv Sodium Chloride 0.9% 500ml Bag) 500 ml @ 500 mls/hr 1X ONCE IV Last administered on 08/28/16 00:52; Start 08/28/16 at 01:00; Stop at 01:59; Status DC Nicotine (Nicoderm Cq 21mg) 1 patch PRN DAILY PRN TD SMOKING CESSATION; Start 08/28/16 at 09:30 Cetirizine HCl (Zyrtec) 10 mg DAILY PO Last administered on 08/28/16 11:50; Start 08/28/16 at 10:00 Vitamin D (Vitamin D3) 1,000 unit DAILY PO Last administered on 08/28/16 11:50 ; Start 08/28/16 at 10:00 Iohexol (Omnipaque 300 Mg/ml) 75 ml 1X ONCE IV Last administered on 08/28/16 10:53; Start 08/28/16 at 10:15; Stop 08/28/16 at 10:16; Status DC Info (Do NOT chart on this entry -- for MONITORING) 1 each PRN DAILY PRN MC SEE COMMENTS; Start 08/28/16 at 10:00; Stop 08/30/16 at 09:59 Active Scripts Active Reported [diphen/atropine] 2.5 Mg PO PRN QID PRN Prilosec Otc (Omeprazole Magnesium) 20 Mg Tablet. 1 Tab PO DAILY Lialda (Mesalamine) 1.2 Gm Tablet. 4 Tab PO DAILY06 Tizanidine Hcl 4 Mg Tablet 5 Tab PO QHS Olanzapine 2.5 Mg Tablet 2.5 Mg PO HS Zyrtec (Cetirizine Hcl) 10 Mg Capsule 10 Mg PO DAILY Dhea 50 Mg Tablet (Prasterone (Dhea)/Calcium Carb) 1 Each Tablet 1 Tab PO DAILY Niacin 500 Mg Tablet 500 Mg PO HS Vitamin D3 (Cholecalciferol (Vitamin D3)) 1,000 Unit Capsule 1,000 Unit PO DAILY Vitamin C (Ascorbic Acid) 1,000 Mg Tab.chew 1,000 Mg PO DAILY Imitrex (Sumatriptan Succinate) 100 Mg Tablet 100 Mg PO ONCE PRN Tramadol Hcl 50 Mg Tablet 4 Tab PO BID Zenpestella Dr 25,000 Units Capsule (Lipase/Protease/Amylase) 1 Each Capsule.dr 1 Each PO TIDAFTMEAL Vitals/I & O Vital Sign - Last 24 Hours 08/27/16 08/27/16 08/27/16 08/27/16 12:01 15:00 19:59 20:00 Temp 97.8 97.7 97.8 97.7 Pulse 90 98 Resp 19 18 B/P 133/72 129/65 Pulse Ox 93 92 92 92 O2 Delivery Nasal Cannula Nasal Cannula Nasal Cannula Nasal Cannula O2 Flow Rate 2.0 2.0 2.0 2.0 08/27/16 08/27/16 08/27/16 08/28/16 20:24 21:03 23:59 00:34 Temp 97.3 97.3 Pulse 71 73 Resp 18 B/P 81/48 88/54 Pulse Ox 92 94 O2 Delivery Nasal Cannula Nasal Cannula Nasal Cannula O2 Flow Rate 2.0 2.0 2.0 08/28/16 08/28/16 08/28/16 08/28/16 03:13 03:59 07:00 08:18 Temp 97.9 97.9 97.9 97.9 Pulse 83 103 Resp 18 19 B/P 117/70 136/75 Pulse Ox 94 93 92 93 O2 Delivery Nasal Cannula Nasal Cannula Nasal Cannula Nasal Cannula O2 Flow Rate 2.0 2.0 2.0 2.0 08/28/16 08/28/16 08/28/16 09:01 09:20 10:05 Pulse Ox 93 93 O2 Delivery Room Air Nasal Cannula Nasal Cannula O2 Flow Rate 2.0 2.0 Intake and Output 08/27/16 08/27/16 08/28/16 15:00 23:00 07:00 Intake Total 500 ml 1750 ml 700 ml Output Total 1150 ml 1400 ml Balance 500 ml 600 ml -700 ml ABDELRAHMAN KOENIG MD Aug 28, 2016 11:56
--- NOTE | 2016-08-28 12:22 | RAD ---
CT pulmonary angiogram with contrast History: Shortness breath and chest pain. Comparison: CT chest 01/20/2013 Technique: Helical CT angiogram of the chest with attention to the pulmonary arteries was performed after the administration of intravenous contrast, 75 mL Omnipaque 300. Axial 2-D reconstructions were obtained. Coronal 3-D MIPS were also obtained. One or more of the following individualized dose reduction techniques were utilized for the study: Automated exposure control Adjustment of mA and/or kV according to patient's size Use of iterative reconstruction technique. Findings: Pulmonary arteries are adequately opacified. There is no evidence of pulmonary embolism. Thoracic aorta is without evidence of dissection. Heart and pericardium are unremarkable. There is a trace left pleural effusion. Mild centrilobular emphysematous changes are seen in both lungs. Scattered areas of nodular groundglass opacity and consolidation can be seen involving the left lung. A greater amount of patchy consolidation and groundglass opacity is seen involving the right lobes. Findings are compatible with multifocal pneumonia. There is a pleural catheter at the right lung base. No significant fluid is seen surrounding the pleural catheter. There is a small-moderate multiloculated pleural effusion, primarily located in the posterior pleural space. Impression: 1. No evidence of pulmonary embolism. 2. A right pleural catheter is seen in the base of the right hemithorax. No significant fluid collection is seen adjacent to the pigtail catheter. Correlate with output of the catheter. Multiloculated pleural effusion is seen involving the posterior pleural space away from pigtail catheter. 3. Multifocal pneumonia, right worse than left.
[2016-08-28] MEDS ORDERED: POTASSIUM CHLORIDE 20 MEQ TABLET.ER. PO ONE (13:00)
[2016-08-28] MEDS: DIPHENOXYLATE/ATROPINE TABLET. PO PRN ×2 (14:01→14:03)
--- NOTE | 2016-08-28 19:19 | PDOC ---
Provider Note Provider Note DATE OF f/u: 08/28/2016 c/c: Leukocytosis with 1% blasts in a patient with pneumonia. HISTORY OF PRESENT ILLNESS: The patient is a 55-year-old female who presented to [facility] Emergency Room 08/21/2016 with complaints of worsening cough and pleuritic chest pain and dyspnea of one week duration. In the Emergency Room, she was noted to have tachycardia and elevated WBC count of 57,000 and lactic acid of 4.1. She was diagnosed with sepsis. She underwent a chest x-ray that revealed right lower lobe pneumonia with small pneumonic effusion. She underwent CT scan of the abdomen on 08/21/2016 that revealed right lower lobe pneumonia. She underwent a CT scan of the chest on 08/22/2016 that revealed multilobar pneumonia, small to moderate multiloculated right pleural effusion, which might indicate a parapneumonic effusion versus empyema. There is also evidence of mild emphysema. She was started on antibiotics, however, she has progressive dyspnea and hypoxia and hence she was transferred to [facility]. Infectious Disease and pulmonary consultation was obtained, she was started on antibiotics. She underwent right chest tube insertion on 08/25/2016, 130 mL of whitish cloudy right pleural fluid was sent to the lab for evaluation. Her WBC count on 08/26/2016 was 32.2 and on 08/27/2016, it was 54.0. In addition, there was evidence of 23% bands, 5% metamyelocytes, 8%, myelocytes, 1% blasts and hence I was asked to see the patient for further evaluation of leukocytosis. Her hemoglobin was 11.9 with a platelet count of 536. PAST MEDICAL HISTORY: COPD. REVIEW OF SYSTEMS: no n/v PHYSICAL EXAMINATION: GENERAL APPEARANCE: The patient is a 55-year-old female who is in no acute cardiorespiratory distress. CHEST: Bilaterally symmetrical, decreased air entry on the right side. HEART: S1, S2 normal. ABDOMEN: Soft, nontender. No hepatosplenomegaly. CENTRAL NERVOUS SYSTEM: No focal neurological deficits. LABORATORY DATA: On 08/27/2016, WBC 54, hemoglobin 11.9, MCV 83, platelet count 536, bands 23%, metamyelocytes 5%, myelocytes 8% and peripheral smear on 08/26/2016 revealed presence of blasts at 1%. IMPRESSION AND PLAN: 1. Severe leukocytosis with a WBC count of 54,000 on 08/27/2016 and hemoglobin of 11.9, platelet count 536,000. There was evidence of elevated bands at 23%, elevated metamyelocytes of 5%, myelocytes of 8%, and 1% blasts. With the presence of sepsis, pneumonia and empyema, this is most likely reactive process. However, in view of worsening myelocytes and the presence of blasts, I would pursue with the bone marrow aspiration and biopsy to make sure that she does not have a primary bone marrow disorder. WBC now 47.2, monitor cbc 2. Pneumonia. Continue antibiotics. Appreciate ID consultation. 3. Empyema. Status post right thoracentesis and chest tube placement. 4. Sepsis with lactic acidosis. 5. Fever, improving. 6. Chronic obstructive pulmonary disease. SARAVANAN RAMIREZ MD Aug 28, 2016 19:19
[2016-08-28] MEDS: OLANZAPINE 2.5 MG TABLET PO SCH (20:53)
[2016-08-28] MEDS: NIACIN ER 500 MG TABLET.ER PO SCH (20:53)
[2016-08-28] MEDS: tiZANidine 4 MG TABLET. PO SCH (20:54)
[2016-08-29] VITALS (17 sets, daily range): BP systolic 90–174; BP diastolic 50–85
[2016-08-29] MEDS: HYDROCODONE/APAP 5/325MG TABLET. PO PRN ×4 (04:18→21:22)
[2016-08-29] MEDS: MESALAMINE 1.2 GM TABLET.DR PO SCH (05:11)
[2016-08-29] MEDS: PIPERACILLIN/TAZOBACTAM 3.375 GM in IV NORMAL SALINE 50ML 50 ML IV SCH ×4 (05:11→22:52)
[2016-08-29 05:22] LABS: BASO # 0.1 x10^3/uL (0.0-0.2); BASO % 0 % (0-3); EOS % 1 % (0-3); HEMATOCRIT 28.9 % (36.0-47.0); HEMOGLOBIN 9.5 g/dL (12.0-15.5); LYMPH # 1.5 x10^3/uL (1.0-4.8); LYMPH % 3 % (24-48); MEAN CORPUSCULAR HEMOGLOBIN 28 pg (25-35); MEAN CORPUSCULAR HGB CONC 33 g/dL (31-37); MEAN CORPUSCULAR VOLUME 85 fL (79-100); MONO % 3 % (0-9); NEUT % 93 % (31-73); PLATELET COUNT 442 x10^3/uL (140-400); RED CELL DISTRIBUTION WIDTH 14.8 % (11.5-14.5)
[2016-08-29 05:25] LABS: WHITE BLOOD COUNT 48.1 x10^3/uL (4.0-11.0)
[2016-08-29 05:39] LABS: CALCIUM 7.7 mg/dL (8.5-10.1); CREATININE 0.9 mg/dL (0.6-1.0); POTASSIUM 3.7 mmol/L (3.5-5.1)
[2016-08-29] MEDS: ENOXAPARIN 40 MG/0.4 ML DISP.SYRIN. SQ SCH ×2 (08:03→16:00)
[2016-08-29 08:13] LABS: INR 1.2 (0.8-1.1); PROTHROMBIN TIME PATIENT 14.5 SEC (11.7-14.0)
[2016-08-29] MEDS ORDERED: LIDOCAINE 1% / SOD BICARB 8.4% 20 ML VIAL. IJ ONE ×2 (08:36→09:15)
[2016-08-29] MEDS ORDERED: MIDAZOLAM HCL/PF 5 MG/5 ML VIAL ONE (08:37)
[2016-08-29] MEDS ORDERED: NALOXONE 0.4 MG/ML VIAL. ONE (08:37)
[2016-08-29] MEDS ORDERED: FENTANYL PF 250 MCG/5 ML VIAL. ONE (08:37)
[2016-08-29] MEDS ORDERED: FLUMAZENIL 0.5 MG/5 ML VIAL. IV ONE (08:37)
--- NOTE | 2016-08-29 09:01 | RAD ---
Portable chest, 08/29/2016: History: Follow-up pneumonia, chest tube placement Comparison is made to yesterday's exam. A right PICC extends into the superior vena cava. A pigtail pleural drain is unchanged in position in the right lower chest. The heart size is normal. There is unchanged pleural thickening on the right with patchy underlying pulmonary infiltrates. The recent CT study demonstrated residual multiloculated right-sided pleural fluid There is no evidence of pneumothorax. Mild prominence of the pulmonary markings in the left lower chest is unchanged. There is no evidence of left-sided pleural fluid. No new abnormality is detected. IMPRESSION: No significant change since yesterday's study.
[2016-08-29] MEDS ORDERED: MIDAZOLAM HCL/PF 5 MG/5 ML VIAL IV ONE (09:15)
[2016-08-29] MEDS ORDERED: FENTANYL PF 250 MCG/5 ML VIAL. IV ONE (09:15)
--- NOTE | 2016-08-29 10:09 | PDOC ---
MODERATE SEDATION ASSESSMENT RISKS/ALTERNATIVES Risks/Alternatives Risks and alternatives of this type of sedation and procedure discussed with: RISK/ALTERNATIVES: Patient H & P ON CHART H & P H & P on chart and reviewed for co-morbid conditions and appropriate labs. H&P ON CHART: Yes STATUS PREG STATUS ASSESSED: Yes MEDS/ALLERGIES REVIEWED Meds/Allergies Reviewed Medications and Allergies including time and route of recently administered narcotics and sedatives. MEDS/ALLERGIES REVIEWED: Yes ASA RATING ASA RATING: II AIRWAY ASSESSMENT Airway Assessment Airway patency, oral function limitations, presence of caps, crowns, dentures, partials, and ability to extend neck assessed. AIRWAY ASSESSMENT: Yes MALLAMPATI SCORE MALLAMPATI SCORE: II PRE-SEDATION ASSESSMENT PRE-SEDATION ASSESSMENT: Yes SUE LU MD Aug 29, 2016 10:09
--- NOTE | 2016-08-29 10:10 | PDOC ---
BRIEF OPERATIVE NOTE Pre-Op Diagnosis leukocytosis Post-Op Diagnosis same Procedure Performed CT Bone marrow Biopsy Surgeon Tasha Anesthesia Type: Conscious Sedation Specimens Obtained 2 x 2 cc aspirates and 1 x 10g core Complications No immediate SUE LU MD Aug 29, 2016 10:10
--- NOTE | 2016-08-29 10:25 | PDOC ---
Infectious Disease Note Subjective Subjective Better. Slept well Still loose stool but better ROS ROS GEN: Denies fevers, chills, sweats HEENT: Denies blurred vision, sore throat CV: Denies chest pain RESP: Denies shortness of air, cough GI: Denies n/v/d NEURO: Denies confusion, dizziness MSK: Denies weakness, joint pain/swelling Vital Sign Vital Signs Vital Signs Date Time Temp Pulse Resp B/P Pulse Ox O2 Delivery O2 Flow Rate FiO2 08/29/16 09:08 24 97 Nasal Cannula 2.0 08/29/16 09:05 127 08/29/16 07:00 97.8 99/56 97.8 Physical Exam PHYSICAL EXAM GENERAL: Propped up in bed, NAD HEENT: OP/OC pink and dry NECK: Supple, no JVD, no LN LUNGS: Clear. Right CT HEART: S1S2, no gallop, no murmur ABD: Soft, NT, BS present : Brar EXT: No edema, no cyanosis WATER QUALITY ASSISTANT: Alert, oriented x 3, no focal neurologic deficit SKIN: No rash RUE-PICC. clean Labs Lab Laboratory Tests Test 08/29/16 05:10 08/29/16 07:58 White Blood Count 48.1x10^3/uL (4.0-11.0) Red Blood Count 3.40x10^6/uL (3.50-5.40) Hemoglobin 9.5g/dL (12.0-15.5) Hematocrit 28.9% (36.0-47.0) Mean Corpuscular Volume 85fL (79-100) Mean Corpuscular Hemoglobin 28pg (25-35) Mean Corpuscular Hemoglobin Concent 33g/dL (31-37) Red Cell Distribution Width 14.8% (11.5-14.5) Platelet Count 442x10^3/uL (140-400) Neutrophils (%) (Auto) 93% (31-73) Lymphocytes (%) (Auto) 3% (24-48) Monocytes (%) (Auto) 3% (0-9) Eosinophils (%) (Auto) 1% (0-3) Basophils (%) (Auto) 0% (0-3) Neutrophils # (Auto) 44.8x10^3uL (1.8-7.7) Lymphocytes # (Auto) 1.5x10^3/uL (1.0-4.8) Monocytes # (Auto) 1.3x10^3/uL (0.0-1.1) Eosinophils # (Auto) 0.4x10^3/uL (0.0-0.7) Basophils # (Auto) 0.1x10^3/uL (0.0-0.2) Sodium Level 133mmol/L (136-145) Potassium Level 3.7mmol/L (3.5-5.1) Chloride Level 102mmol/L (98-107) Carbon Dioxide Level 23mmol/L (21-32) Anion Gap 8 (6-14) Blood Urea Nitrogen 9mg/dL (7-20) Creatinine 0.9mg/dL (0.6-1.0) Estimated GFR (Cockcroft-Gault) 65.0 Glucose Level 92mg/dL (70-99) Calcium Level 7.7mg/dL (8.5-10.1) Prothrombin Time 14.5SEC (11.7-14.0) Prothromb Time International Ratio 1.2 (0.8-1.1) Objective Assessment Diarrhea - chronic problem at home - some better today. C-diff zee S/p Bone marrow 08/29 CAP Right empyema. s/p chest tube placement, 08/25 Leukocytosis, better Fever. better Sepsis with lactic acidosis Suspected COPD Hypoxia H/o C-diff Plan Plan of Care Continue, Zosyn and Zyvox D/c po vanc Strep pneumo antigen pending probiotics Monitor labs supportive care F/u bone marrow D/w NGHIA SONI MD Aug 29, 2016 10:25
[2016-08-29] MEDS: PANTOPRAZOLE 40 MG TABLET. PO SCH (10:30)
[2016-08-29] MEDS: LIPASE/PROTEAS/AMYLASE 5/17/27 CAPSULE.DR. PO SCH ×3 (10:31→17:08)
[2016-08-29] MEDS: LACTOBACILLUS ACIDOPH & BULGAR 1 TABLET. PO SCH ×3 (10:31→17:08)
[2016-08-29] MEDS: ASCORBIC ACID 500 MG TABLET PO SCH (10:33)
[2016-08-29] MEDS: TRAMADOL 50 MG TABLET. PO SCH ×2 (10:33→21:18)
[2016-08-29] MEDS: CHOLECALCIFEROL (VITAMIN D3) 1,000 UNIT TABLET PO SCH (10:34)
[2016-08-29] MEDS: CETIRIZINE HCL 10 MG TABLET PO SCH (10:34)
--- NOTE | 2016-08-29 11:44 | PDOC ---
PULMONARY PROGRESS NOTES Subjective feels better no soa today Vitals Vital Signs Date Time Temp Pulse Resp B/P Pulse Ox O2 Delivery O2 Flow Rate FiO2 08/29/16 11:00 97.9 108 18 113/64 96 Nasal Cannula 2.0 97.9 Comments ros as above, other sys otherwise neg General: Alert HEENT: Other (nc at perrl, throat nose clear) Lungs: Other (decrease bs right base) Cardiovascular: S1, S2 Abdomen: Soft, Non-tender, Other (no mass) Neuro Exam: Alert, Oriented, No Focal Findings Extremities: No Edema Skin: Warm Labs Laboratory Tests Test 08/28/16 03:17 08/28/16 05:24 08/29/16 05:10 08/29/16 07:58 Clostridium difficile Toxin (PCR) Negative (Negative) White Blood Count 47.2x10^3/uL (4.0-11.0) 48.1x10^3/uL (4.0-11.0) Red Blood Count 3.68x10^6/uL (3.50-5.40) 3.40x10^6/uL (3.50-5.40) Hemoglobin 10.2g/dL (12.0-15.5) 9.5g/dL (12.0-15.5) Hematocrit 31.2% (36.0-47.0) 28.9% (36.0-47.0) Mean Corpuscular Volume 85fL (79-100) 85fL (79-100) Mean Corpuscular Hemoglobin 28pg (25-35) 28pg (25-35) Mean Corpuscular Hemoglobin Concent 33g/dL (31-37) 33g/dL (31-37) Red Cell Distribution Width 14.7% (11.5-14.5) 14.8% (11.5-14.5) Platelet Count 410x10^3/uL (140-400) 442x10^3/uL (140-400) Neutrophils (%) (Auto) 94% (31-73) 93% (31-73) Lymphocytes (%) (Auto) 3% (24-48) 3% (24-48) Monocytes (%) (Auto) 3% (0-9) 3% (0-9) Eosinophils (%) (Auto) 1% (0-3) 1% (0-3) Basophils (%) (Auto) 0% (0-3) 0% (0-3) Neutrophils # (Auto) 44.2x10^3uL (1.8-7.7) 44.8x10^3uL (1.8-7.7) Lymphocytes # (Auto) 1.4x10^3/uL (1.0-4.8) 1.5x10^3/uL (1.0-4.8) Monocytes # (Auto) 1.2x10^3/uL (0.0-1.1) 1.3x10^3/uL (0.0-1.1) Eosinophils # (Auto) 0.3x10^3/uL (0.0-0.7) 0.4x10^3/uL (0.0-0.7) Basophils # (Auto) 0.1x10^3/uL (0.0-0.2) 0.1x10^3/uL (0.0-0.2) Sodium Level 133mmol/L (136-145) 133mmol/L (136-145) Potassium Level 3.3mmol/L (3.5-5.1) 3.7mmol/L (3.5-5.1) Chloride Level 100mmol/L (98-107) 102mmol/L (98-107) Carbon Dioxide Level 25mmol/L (21-32) 23mmol/L (21-32) Anion Gap 8 (6-14) 8 (6-14) Blood Urea Nitrogen 9mg/dL (7-20) 9mg/dL (7-20) Creatinine 0.8mg/dL (0.6-1.0) 0.9mg/dL (0.6-1.0) Estimated GFR (Cockcroft-Gault) 74.5 65.0 Glucose Level 86mg/dL (70-99) 92mg/dL (70-99) Calcium Level 7.4mg/dL (8.5-10.1) 7.7mg/dL (8.5-10.1) Prothrombin Time 14.5SEC (11.7-14.0) Prothromb Time International Ratio 1.2 (0.8-1.1) Laboratory Tests Test 08/29/16 05:10 08/29/16 07:58 White Blood Count 48.1x10^3/uL (4.0-11.0) Red Blood Count 3.40x10^6/uL (3.50-5.40) Hemoglobin 9.5g/dL (12.0-15.5) Hematocrit 28.9% (36.0-47.0) Mean Corpuscular Volume 85fL (79-100) Mean Corpuscular Hemoglobin 28pg (25-35) Mean Corpuscular Hemoglobin Concent 33g/dL (31-37) Red Cell Distribution Width 14.8% (11.5-14.5) Platelet Count 442x10^3/uL (140-400) Neutrophils (%) (Auto) 93% (31-73) Lymphocytes (%) (Auto) 3% (24-48) Monocytes (%) (Auto) 3% (0-9) Eosinophils (%) (Auto) 1% (0-3) Basophils (%) (Auto) 0% (0-3) Neutrophils # (Auto) 44.8x10^3uL (1.8-7.7) Lymphocytes # (Auto) 1.5x10^3/uL (1.0-4.8) Monocytes # (Auto) 1.3x10^3/uL (0.0-1.1) Eosinophils # (Auto) 0.4x10^3/uL (0.0-0.7) Basophils # (Auto) 0.1x10^3/uL (0.0-0.2) Sodium Level 133mmol/L (136-145) Potassium Level 3.7mmol/L (3.5-5.1) Chloride Level 102mmol/L (98-107) Carbon Dioxide Level 23mmol/L (21-32) Anion Gap 8 (6-14) Blood Urea Nitrogen 9mg/dL (7-20) Creatinine 0.9mg/dL (0.6-1.0) Estimated GFR (Cockcroft-Gault) 65.0 Glucose Level 92mg/dL (70-99) Calcium Level 7.7mg/dL (8.5-10.1) Prothrombin Time 14.5SEC (11.7-14.0) Prothromb Time International Ratio 1.2 (0.8-1.1) Medications Active Scripts Medications Dose Route/Sig Days Date Category Zyprexa (Olanzapine) 2.5 Mg Tablet 1 Tab PO QHS 01/15/16 Reported Tizanidine Hcl 4 Mg Tablet 4 Mg PO TID PRN 01/14/16 Reported Tramadol Hcl 50 Mg Tablet 50 Mg PO BID PRN 01/14/16 Reported Lialda (Mesalamine) 1.2 Gm Tablet.dr 4 Tab PO DAILY 01/14/16 Reported Comments cxr reviewed, 1. Minimal interval decrease in left greater than right multifocal pneumonia. 2. Stable small right pleural effusion with suspected loculated lateral right pleural fluid component or pleural thickening. There is a right pleural drainage catheter unchanged in position. 3. Right PICC exiting cephalad into the right internal jugular vein. Catheter repositioning is indicated. Impression . 1. Acute hypoxic respiratory failure, This is secondary to extensive multilobar community-acquired pneumonia/ multiloculated effusion, clinically empyema. 2. chronic obstructive pulmonary disease, could be severe. 3. Persistent severe leukocytosis This is probably related to underlying extensive pneumonia and sepsis./ BP done today 4. Severe protein-calorie malnutrition with an albumin level of 1.4. 5. Lactic acidosis present on admission on 08/21/2016 at [facility] related to sepsis from pneumonia. 6. Normal ejection fraction by echo with a pulmonary artery systolic pressure of 49. Suspect this is secondary to underlying chronic obstructive pulmonary disease. 7. smoker Plan . 1. cont Zosyn and Levaquin, zyvox and po vanc. 2. d/w patient regarding repeat ct chest findings. chest tube is not communicating with other large pocket of fluid. Would benefit from another tube and possible intra-pleural TPA. Last option would be De-cortication 3. cont chest tube to suction to -30. ph, 6.9 c/w empyema 4. Bronchodilators. 5. Deep venous thrombosis prophylaxis. 6. Stress ulcer prophylaxis. 7. Continue BiPAP prn 8. 02 titration 9. Monitor white cell count. follow BP aspirate results 10. advised to quit smoking, 11. pain control HERBER PERALES MD Aug 29, 2016 11:44
--- NOTE | 2016-08-29 13:29 | RAD ---
Procedure: CT-guided bone marrow aspiration and biopsy Clinical Indication: 55-year-old with leukocytosis Sedation: Conscious sedation was administered for 10 minutes. The patient was monitored by a qualified independent observer throughout the time of sedation. Please refer to the medical record for exact doses of medications utilized to achieve moderate sedation. Antibiotics: None Fluoro Time: Not applicable Contrast: None Sterility: The procedure was performed in its entirety using appropriate elements of sterile technique. Consent: The procedure was explained in its entirety to the patient or the patients designated event representative by a member of the treatment team, including a discussion of the risks, benefits and commonly accepted alternatives to the procedure, as well as the expected consequences of no therapy whatsoever. Discussion of the risks included, but was not limited to, those that are most frequent and those that are rare but possibly severe or life-threatening, as well as the possibility of unforeseen complications. Technique and Findings: Following informed consent, the patient was prepped and draped in usual sterile fashion. Preliminary CT scan of the area of interest was performed. 1% Lidocaine was used to achieve local anesthesia. Under periodic CT surveillance, an 11-gauge needle was advanced through the cortex of the posterior superior iliac spine and 2 separate 2 mL marrow aspirates were obtained and preserved on site by the cytopathology technologist. A single 11-gauge core biopsy specimen was then obtained and preserved in formalin. The needle was then removed and hemostasis was achieved with manual compression. Complications: No immediate Impression: 1. CT-guided bone marrow aspiration and biopsy as described PQRS Compliance Statement: One or more of the following individualized dose reduction techniques were utilized for this examination: 1. Automated exposure control 2. Adjustment of the mA and/or kV according to patient size 3. Use of iterative reconstruction technique
--- NOTE | 2016-08-29 14:00 | PDOC ---
Provider Note Provider Note DATE OF f/u: 08/29/2016 c/c: Leukocytosis with 1% blasts in a patient with pneumonia. HISTORY OF PRESENT ILLNESS: The patient is a 55-year-old female who presented to [facility] Emergency Room 08/21/2016 with complaints of worsening cough and pleuritic chest pain and dyspnea of one week duration. In the Emergency Room, she was noted to have tachycardia and elevated WBC count of 57,000 and lactic acid of 4.1. She was diagnosed with sepsis. She underwent a chest x-ray that revealed right lower lobe pneumonia with small pneumonic effusion. She underwent CT scan of the abdomen on 08/21/2016 that revealed right lower lobe pneumonia. She underwent a CT scan of the chest on 08/22/2016 that revealed multilobar pneumonia, small to moderate multiloculated right pleural effusion, which might indicate a parapneumonic effusion versus empyema. There is also evidence of mild emphysema. She was started on antibiotics, however, she has progressive dyspnea and hypoxia and hence she was transferred to [facility]. Infectious Disease and pulmonary consultation was obtained, she was started on antibiotics. She underwent right chest tube insertion on 08/25/2016, 130 mL of whitish cloudy right pleural fluid was sent to the lab for evaluation. Her WBC count on 08/26/2016 was 32.2 and on 08/27/2016, it was 54.0. In addition, there was evidence of 23% bands, 5% metamyelocytes, 8%, myelocytes, 1% blasts and hence I was asked to see the patient for further evaluation of leukocytosis. Her hemoglobin was 11.9 with a platelet count of 536. PAST MEDICAL HISTORY: COPD. REVIEW OF SYSTEMS: no n/v PHYSICAL EXAMINATION: GENERAL APPEARANCE: The patient is a 55-year-old female who is in no acute cardiorespiratory distress. CHEST: Bilaterally symmetrical, decreased air entry on the right side. HEART: S1, S2 normal. ABDOMEN: Soft, nontender. No hepatosplenomegaly. CENTRAL NERVOUS SYSTEM: No focal neurological deficits. LABORATORY DATA: On 08/27/2016, WBC 54, hemoglobin 11.9, MCV 83, platelet count 536, bands 23%, metamyelocytes 5%, myelocytes 8% and peripheral smear on 08/26/2016 revealed presence of blasts at 1%. IMPRESSION AND PLAN: 1. Severe leukocytosis with a WBC count of 54,000 on 08/27/2016 and hemoglobin of 11.9, platelet count 536,000. There was evidence of elevated bands at 23%, elevated metamyelocytes of 5%, myelocytes of 8%, and 1% blasts. With the presence of sepsis, pneumonia and empyema, this is most likely reactive process. However, in view of worsening myelocytes and the presence of blasts, I would pursue with the bone marrow aspiration and biopsy to make sure that she does not have a primary bone marrow disorder. WBC now 48.1, monitor cbc S/p bone marrow bx 08/29/16. I will f/u 2. Pneumonia. Continue antibiotics. Appreciate ID consultation. 3. Empyema. Status post right thoracentesis and chest tube placement. 4. Sepsis with lactic acidosis. 5. Fever, improving. 6. Chronic obstructive pulmonary disease. SARAVANAN RAMIREZ MD Aug 29, 2016 14:00
--- NOTE | 2016-08-29 15:08 | PDOC ---
PROGRESS NOTES Chief Complaint Chief Complaint Acute hypoxic respiratory failure ASSESSMENT AND PLAN: 1. PNA: multilobar. on broad spectrum coverage (zosyn, linezolid) 2. Empyema: CT in place, but fluid loculated. may need 2nd tube. Dr Brown following 3. COPD exacerbation: as per dr Brown. BiPAP PRN 4. Sepsis: VS stabilizing, remains mildly tachy 4. Leukocytosis with severe left shift: s/p BM bx today by Dr Jamison. poss leukemoid rxn from infect vs primary BM d/o 5. UC: on mesalamine, pancreatic enzymes, macrobiotics 6. Depression: on zyprexa 7. Smoker: nicotine patch; cessation advised 8. Migraine: imitrex PRN 9. chest pain: musculoskeletal w/ CT: increase frequency of pain meds to q4 PRN 10. Prophylaxis: lovenox, PPI Vitals Vitals Vital Signs Date Time Temp Pulse Resp B/P Pulse Ox O2 Delivery O2 Flow Rate FiO2 08/29/16 13:20 106 128/71 96 Nasal Cannula 2.0 08/29/16 11:33 20 08/29/16 11:00 97.9 97.9 Physical Exam General: Alert, Oriented X3 Heart: Normal S1, Normal S2 Lungs: Other (decrease bs right base) Abdomen: Normal bowel sounds Extremities: No clubbing, No cyanosis Labs LABS Laboratory Tests Test 08/29/16 05:10 08/29/16 07:58 White Blood Count 48.1x10^3/uL (4.0-11.0) Red Blood Count 3.40x10^6/uL (3.50-5.40) Hemoglobin 9.5g/dL (12.0-15.5) Hematocrit 28.9% (36.0-47.0) Mean Corpuscular Volume 85fL (79-100) Mean Corpuscular Hemoglobin 28pg (25-35) Mean Corpuscular Hemoglobin Concent 33g/dL (31-37) Red Cell Distribution Width 14.8% (11.5-14.5) Platelet Count 442x10^3/uL (140-400) Neutrophils (%) (Auto) 93% (31-73) Lymphocytes (%) (Auto) 3% (24-48) Monocytes (%) (Auto) 3% (0-9) Eosinophils (%) (Auto) 1% (0-3) Basophils (%) (Auto) 0% (0-3) Neutrophils # (Auto) 44.8x10^3uL (1.8-7.7) Lymphocytes # (Auto) 1.5x10^3/uL (1.0-4.8) Monocytes # (Auto) 1.3x10^3/uL (0.0-1.1) Eosinophils # (Auto) 0.4x10^3/uL (0.0-0.7) Basophils # (Auto) 0.1x10^3/uL (0.0-0.2) Sodium Level 133mmol/L (136-145) Potassium Level 3.7mmol/L (3.5-5.1) Chloride Level 102mmol/L (98-107) Carbon Dioxide Level 23mmol/L (21-32) Anion Gap 8 (6-14) Blood Urea Nitrogen 9mg/dL (7-20) Creatinine 0.9mg/dL (0.6-1.0) Estimated GFR (Cockcroft-Gault) 65.0 Glucose Level 92mg/dL (70-99) Calcium Level 7.7mg/dL (8.5-10.1) Prothrombin Time 14.5SEC (11.7-14.0) Prothromb Time International Ratio 1.2 (0.8-1.1) Review of Systems Review of Systems SOB improved, STRICK[place]+. pain in chest from tube Assessment and Plan Assessmemt and Plan Problems: Comment Review of Relevant I have reviewed the following items randi (where applicable) has been applied. Labs Laboratory Tests Test 08/28/16 03:17 08/28/16 05:24 08/29/16 05:10 08/29/16 07:58 Clostridium difficile Toxin (PCR) Negative (Negative) White Blood Count 47.2x10^3/uL (4.0-11.0) 48.1x10^3/uL (4.0-11.0) Red Blood Count 3.68x10^6/uL (3.50-5.40) 3.40x10^6/uL (3.50-5.40) Hemoglobin 10.2g/dL (12.0-15.5) 9.5g/dL (12.0-15.5) Hematocrit 31.2% (36.0-47.0) 28.9% (36.0-47.0) Mean Corpuscular Volume 85fL (79-100) 85fL (79-100) Mean Corpuscular Hemoglobin 28pg (25-35) 28pg (25-35) Mean Corpuscular Hemoglobin Concent 33g/dL (31-37) 33g/dL (31-37) Red Cell Distribution Width 14.7% (11.5-14.5) 14.8% (11.5-14.5) Platelet Count 410x10^3/uL (140-400) 442x10^3/uL (140-400) Neutrophils (%) (Auto) 94% (31-73) 93% (31-73) Lymphocytes (%) (Auto) 3% (24-48) 3% (24-48) Monocytes (%) (Auto) 3% (0-9) 3% (0-9) Eosinophils (%) (Auto) 1% (0-3) 1% (0-3) Basophils (%) (Auto) 0% (0-3) 0% (0-3) Neutrophils # (Auto) 44.2x10^3uL (1.8-7.7) 44.8x10^3uL (1.8-7.7) Lymphocytes # (Auto) 1.4x10^3/uL (1.0-4.8) 1.5x10^3/uL (1.0-4.8) Monocytes # (Auto) 1.2x10^3/uL (0.0-1.1) 1.3x10^3/uL (0.0-1.1) Eosinophils # (Auto) 0.3x10^3/uL (0.0-0.7) 0.4x10^3/uL (0.0-0.7) Basophils # (Auto) 0.1x10^3/uL (0.0-0.2) 0.1x10^3/uL (0.0-0.2) Sodium Level 133mmol/L (136-145) 133mmol/L (136-145) Potassium Level 3.3mmol/L (3.5-5.1) 3.7mmol/L (3.5-5.1) Chloride Level 100mmol/L (98-107) 102mmol/L (98-107) Carbon Dioxide Level 25mmol/L (21-32) 23mmol/L (21-32) Anion Gap 8 (6-14) 8 (6-14) Blood Urea Nitrogen 9mg/dL (7-20) 9mg/dL (7-20) Creatinine 0.8mg/dL (0.6-1.0) 0.9mg/dL (0.6-1.0) Estimated GFR (Cockcroft-Gault) 74.5 65.0 Glucose Level 86mg/dL (70-99) 92mg/dL (70-99) Calcium Level 7.4mg/dL (8.5-10.1) 7.7mg/dL (8.5-10.1) Prothrombin Time 14.5SEC (11.7-14.0) Prothromb Time International Ratio 1.2 (0.8-1.1) Laboratory Tests Test 08/29/16 05:10 08/29/16 07:58 White Blood Count 48.1x10^3/uL (4.0-11.0) Red Blood Count 3.40x10^6/uL (3.50-5.40) Hemoglobin 9.5g/dL (12.0-15.5) Hematocrit 28.9% (36.0-47.0) Mean Corpuscular Volume 85fL (79-100) Mean Corpuscular Hemoglobin 28pg (25-35) Mean Corpuscular Hemoglobin Concent 33g/dL (31-37) Red Cell Distribution Width 14.8% (11.5-14.5) Platelet Count 442x10^3/uL (140-400) Neutrophils (%) (Auto) 93% (31-73) Lymphocytes (%) (Auto) 3% (24-48) Monocytes (%) (Auto) 3% (0-9) Eosinophils (%) (Auto) 1% (0-3) Basophils (%) (Auto) 0% (0-3) Neutrophils # (Auto) 44.8x10^3uL (1.8-7.7) Lymphocytes # (Auto) 1.5x10^3/uL (1.0-4.8) Monocytes # (Auto) 1.3x10^3/uL (0.0-1.1) Eosinophils # (Auto) 0.4x10^3/uL (0.0-0.7) Basophils # (Auto) 0.1x10^3/uL (0.0-0.2) Sodium Level 133mmol/L (136-145) Potassium Level 3.7mmol/L (3.5-5.1) Chloride Level 102mmol/L (98-107) Carbon Dioxide Level 23mmol/L (21-32) Anion Gap 8 (6-14) Blood Urea Nitrogen 9mg/dL (7-20) Creatinine 0.9mg/dL (0.6-1.0) Estimated GFR (Cockcroft-Gault) 65.0 Glucose Level 92mg/dL (70-99) Calcium Level 7.7mg/dL (8.5-10.1) Prothrombin Time 14.5SEC (11.7-14.0) Prothromb Time International Ratio 1.2 (0.8-1.1) Microbiology 08/25/16 Anaerobic/Aerobic Culture, Resulted Pending 08/25/16 Anaerobic Culture Result 1 (BRUCE), Resulted Pending 08/25/16 Aerobic Culture - Final, Resulted 08/25/16 Aerobic Culture Result 1 (BRUCE) - Final, Resulted Medications Current Medications Acetaminophen (Tylenol) 325 mg PRN Q6HRS PRN PO MILD PAIN / TEMP Last administered on 08/26/16 08:29; Start 08/25/16 at 12:45 Acetaminophen/ Hydrocodone Bitart (Lortab 5/325) 1 tab PRN Q6HRS PRN PO MODERATE PAIN Last administered on 08/27/16 02:06; Start 08/25/16 at 12:45 Hydralazine HCl (Apresoline) 10 mg PRN Q4HRS PRN IVP ELEVATED BP, SEE COMMENTS Last administered on 08/26/16 05:07; Start 08/25/16 at 12:45 Ondansetron HCl (Zofran) 4 mg PRN Q8HRS PRN IV NAUSEA/VOMITING Last administered on 08/25/16 15:42; Start 08/25/16 at 12:45; Stop 08/27/16 at 08:44 ; Status DC Albuterol Sulfate 2.5 mg 2.5 mg PRN Q4HRS PRN NEB SHORTNESS OF BREATH; Start at 12:45 Piperacillin Sod/ Tazobactam Sod 3.375 gm/Sodium Chloride 50 ml @ 100 mls/hr Q6HRS IV Last administered on 08/29/16 12:50; Start 08/25/16 at 13:00 Linezolid (Zyvox Premix) 300 ml @ 300 mls/hr Q12HR IV Last administered on 10:32; Start 08/25/16 at 14:00 Piperacillin Sod/ Tazobactam Sod 1 each 1 each PRN DAILY PRN MC SEE COMMENTS; Start 08/25/16 at 13:45; Stop 08/27/16 at 12:41; Status DC Levofloxacin/ Dextrose (LEVAQUIN 750mg PREMIX) 150 ml @ 100 mls/hr Q24H IV Last administered on 08/28/16 13:51; Start 08/25/16 at 14:00; Stop 08/28/16 at 14:37; Status DC Lidocaine/Sodium Bicarbonate (Buffered Lidocaine 1%) 20 ml STK-MED ONCE IJ ; Start 08/25/16 at 14:00; Stop 08/25/16 at 14:01; Status DC Lidocaine/Sodium Bicarbonate (Buffered Lidocaine 1%) 5 ml 1X ONCE IJ Last administered on 08/25/16t 14:59; Start 08/25/16 at 15:00; Stop 08/25/16 at 15:01 ; Status DC Info (Do NOT chart on this placeholder) 1 each 1X ONCE MC ; Start 08/25/16 at 17:00; Stop 08/25/16 at 17:01; Status UNV Pneumococcal Polyvalent Vaccine (Do NOT chart on this placeholder) 1 each 1X ONCE MC ; Start 08/25/16 at 17:00; Stop 08/25/16 at 17:01; Status UNV Influenza Virus Vaccine Quadrival (Fluarix Quad [id number] Syringe) 0.5 ml ONCE ONCE VAX IM ; Start 08/26/16 at 09:00; Stop 08/26/16 at 09:01; Status DC Pneumococcal Polyvalent Vaccine (Pneumovax 23) 0.5 ml ONCE ONCE VAX IM ; Start 08/26/16 at 09:00; Stop 08/26/16 at 09:01; Status DC Enoxaparin Sodium (Lovenox 40mg Syringe) 40 mg Q24H SQ Last administered on 08:19; Start 08/26/16 at 09:00; Stop 08/29/16 at 11:45; Status DC Fentanyl Citrate (Fentanyl 2ml Vial) 25 mcg PRN Q4HRS PRN IV PAIN Last administered on 08/27/16 06:13; Start 08/26/16 at 08:30 Potassium Chloride (Klor-Con) 40 meq 1X ONCE PO Last administered on 11:24; Start 08/26/16 at 10:45; Stop 08/26/16 at 10:49; Status DC Mesalamine (Lialda) 4.8 gm DAILY06 PO Last administered on 08/28/16 05:25; Start 08/26/16 at 13:30 Olanzapine (Zyprexa) 2.5 mg HS PO Last administered on 08/28/16 20:53; Start 08/26/16 at 21:00 Sumatriptan Succinate (Imitrex) 100 mg PRN Q2HR PRN PO MIGRAINE HEADACHE; Start 08/26/16 at 13:30 Tizanidine HCl (Zanaflex) 4 mg QHS PO Last administered on 08/26/16 19:57; Start 08/26/16 at 21:00; Stop 08/26/16 at 21:00; Status DC Tramadol HCl (Ultram) 50 mg BID PO Last administered on 08/29/16 10:33; Start 08/26/16 at 14:00 Ascorbic Acid (Vitamin C) 1,000 mg DAILY PO Last administered on 08/29/16 10: 33; Start 08/27/16 at 09:00 Amylase/Lipase/ Protease (Zenpep 5,000) 5 cap TIDWMEALS PO Last administered on 08/29/16 12:51; Start 08/26/16 at 17:00 Niacin (Slo-Niacin) 500 mg QHS PO Last administered on 08/28/16 20:53; Start 08/26/16 at 21:00 Pantoprazole Sodium (Protonix) 40 mg DAILYAC PO Last administered on 08/29/16 10:30; Start 08/26/16 at 14:00 Non-Formulary Medication 1 tab DAILY PO ; Start 08/27/16 at 09:00; Status UNV Diphenoxylate HCl/ Atropine (Lomotil) 1 tab PRN QID PRN PO DIARRHEA Last administered on 08/28/16 14:03; Start 08/26/16 at 13:45 Tizanidine HCl (Zanaflex) 20 mg QHS PO Last administered on 08/28/16 20:54; Start 08/26/16 at 21:00 Acetaminophen/ Hydrocodone Bitart (Lortab 5/325) 2 tab PRN Q6HRS PRN PO SEVERE PAIN Last administered on 08/29/16 10:47; Start 08/27/16 at 04:45 Ondansetron HCl (Zofran) 4 mg PRN Q6HRS PRN IV NAUSEA/VOMITING; Start 08/27/16 at 08:42 Vancomycin HCl 125 mg [id number] PO Last administered on 08/28/16 20:54; Start at 16:00; Stop 08/29/16 at 10:24; Status DC Lactobacillus Acidophilus 1 tab 1 tab TIDWMEALS PO Last administered on 12:52; Start 08/27/16 at 17:00 Sodium Chloride (Iv Sodium Chloride 0.9% 500ml Bag) 500 ml @ 500 mls/hr 1X ONCE IV Last administered on 08/28/16 00:52; Start 08/28/16 at 01:00; Stop at 01:59; Status DC Nicotine (Nicoderm Cq 21mg) 1 patch PRN DAILY PRN TD SMOKING CESSATION; Start 08/28/16 at 09:30 Cetirizine HCl (Zyrtec) 10 mg DAILY PO Last administered on 08/29/16 10:34; Start 08/28/16 at 10:00 Vitamin D (Vitamin D3) 1,000 unit DAILY PO Last administered on 08/29/16 10:34 ; Start 08/28/16 at 10:00 Iohexol (Omnipaque 300 Mg/ml) 75 ml 1X ONCE IV Last administered on 08/28/16 10:53; Start 08/28/16 at 10:15; Stop 08/28/16 at 10:16; Status DC Info (Do NOT chart on this entry -- for MONITORING) 1 each PRN DAILY PRN MC SEE COMMENTS; Start 08/28/16 at 10:00; Stop 08/30/16 at 09:59 Potassium Chloride (Klor-Con) 40 meq 1X ONCE PO Last administered on 13:52; Start 08/28/16 at 13:00; Stop 08/28/16 at 13:01; Status DC Lidocaine/Sodium Bicarbonate (Buffered Lidocaine 1%) 20 ml STK-MED ONCE IJ ; Start 08/29/16 at 08:36; Stop 08/29/16 at 08:37; Status DC Naloxone HCl (Narcan) 0.4 mg STK-MED ONCE .ROUTE ; Start 08/29/16 at 08:37; Stop 08/29/16 at 08:38; Status DC Flumazenil (Romazicon) 0.5 mg STK-MED ONCE IV ; Start 08/29/16 at 08:37; Stop at 08:38; Status DC Midazolam HCl (Versed) 5 mg STK-MED ONCE .ROUTE ; Start 08/29/16 at 08:37; Stop 08/29/16 at 08:38; Status DC Fentanyl Citrate (Fentanyl 5ml Vial) 250 mcg STK-MED ONCE .ROUTE ; Start at 08:37; Stop 08/29/16 at 08:38; Status DC Lidocaine/Sodium Bicarbonate (Buffered Lidocaine 1%) 6 ml 1X ONCE IJ Last administered on 08/29/16 09:09; Start 08/29/16 at 09:15; Stop 08/29/16 at 09:16 ; Status DC Midazolam HCl (Versed) 2 mg 1X ONCE IV Last administered on 08/29/16 09:08; Start 08/29/16 at 09:15; Stop 08/29/16 at 09:16; Status DC Fentanyl Citrate (Fentanyl 5ml Vial) 100 mcg 1X ONCE IV Last administered on 09:08; Start 08/29/16 at 09:15; Stop 08/29/16 at 09:16; Status DC Active Scripts Active Reported [diphen/atropine] 2.5 Mg PO PRN QID PRN Prilosec Otc (Omeprazole Magnesium) 20 Mg Tablet.dr 1 Tab PO DAILY Lialda (Mesalamine) 1.2 Gm Tablet. 4 Tab PO DAILY06 Tizanidine Hcl 4 Mg Tablet 5 Tab PO QHS Olanzapine 2.5 Mg Tablet 2.5 Mg PO HS Zyrtec (Cetirizine Hcl) 10 Mg Capsule 10 Mg PO DAILY Dhea 50 Mg Tablet (Prasterone (Dhea)/Calcium Carb) 1 Each Tablet 1 Tab PO DAILY Niacin 500 Mg Tablet 500 Mg PO HS Vitamin D3 (Cholecalciferol (Vitamin D3)) 1,000 Unit Capsule 1,000 Unit PO DAILY Vitamin C (Ascorbic Acid) 1,000 Mg Tab.chew 1,000 Mg PO DAILY Imitrex (Sumatriptan Succinate) 100 Mg Tablet 100 Mg PO ONCE PRN Tramadol Hcl 50 Mg Tablet 4 Tab PO BID Zenpep 25,000 Units Capsule (Lipase/Protease/Amylase) 1 Each Capsule.dr 1 Each PO TIDAFTMEAL Vitals/I & O Vital Sign - Last 24 Hours 08/28/16 08/28/16 08/28/16 08/28/16 15:00 15:26 19:28 19:39 Temp 97.8 97.9 97.8 97.9 Pulse 94 104 Resp 19 20 B/P 138/76 121/67 Pulse Ox 93 92 95 O2 Delivery Nasal Cannula Nasal Cannula Nasal Cannula Nasal Cannula O2 Flow Rate 2.0 2.0 2.0 2.0 08/28/16 08/28/16 08/28/16 08/29/16 20:53 22:07 22:10 03:31 Temp 96.4 97.7 96.4 97.7 Pulse 82 84 Resp 20 20 B/P 101/64 106/58 Pulse Ox 95 95 96 95 O2 Delivery Nasal Cannula Nasal Cannula Nasal Cannula Nasal Cannula O2 Flow Rate 2.0 2.0 2.0 2.0 08/29/16 08/29/16 08/29/16 08/29/16 04:18 07:00 08:51 08:56 Temp 97.8 97.8 Pulse 92 125 127 Resp 18 28 24 B/P 99/56 Pulse Ox 95 94 99 97 O2 Delivery Nasal Cannula Nasal Cannula Nasal Cannula Nasal Cannula O2 Flow Rate 2.0 2.0 2.0 2.0 08/29/16 08/29/16 08/29/16 08/29/16 09:01 09:05 09:08 09:35 Pulse 127 107 Resp 24 24 24 B/P 108/66 Pulse Ox 97 97 97 96 O2 Delivery Nasal Cannula Nasal Cannula Nasal Cannula Nasal Cannula O2 Flow Rate 2.0 2.0 2.0 2.0 08/29/16 08/29/16 08/29/16 08/29/16 09:50 10:05 10:20 10:33 Pulse 104 104 107 Resp 20 B/P 119/62 115/67 113/64 Pulse Ox 97 96 97 97 O2 Delivery Nasal Cannula Nasal Cannula Nasal Cannula Nasal Cannula O2 Flow Rate 2.0 2.0 2.0 2.0 08/29/16 08/29/16 08/29/16 08/29/16 10:47 10:50 11:00 11:20 Temp 97.9 97.9 Pulse 105 108 108 Resp 20 18 B/P 119/73 113/64 121/74 Pulse Ox 97 97 96 97 O2 Delivery Nasal Cannula Nasal Cannula Nasal Cannula Nasal Cannula O2 Flow Rate 2.0 2.0 2.0 2.0 08/29/16 08/29/16 08/29/16 08/29/16 11:20 11:33 11:33 13:20 Pulse 105 106 Resp 20 20 B/P 141/81 128/71 Pulse Ox 95 96 96 96 O2 Delivery Nasal Cannula Nasal Cannula Nasal Cannula Nasal Cannula O2 Flow Rate 2.0 2.0 2.0 2.0 Intake and Output 08/28/16 08/28/16 08/29/16 15:00 23:00 07:00 Intake Total 550 ml 850 ml 100 ml Output Total 900 ml 1850 ml Balance 550 ml -50 ml -1750 ml PRADEEP NARAYANAN MD Aug 29, 2016 15:08
[2016-08-29] MEDS ORDERED: HYDROCODONE/APAP 5/325MG TABLET. PO PRN (16:45)
[2016-08-29] MEDS: OLANZAPINE 2.5 MG TABLET PO SCH (21:18)
[2016-08-29] MEDS: tiZANidine 4 MG TABLET. PO SCH (21:19)
[2016-08-29] MEDS: NIACIN ER 500 MG TABLET.ER PO SCH (21:19)
[2016-08-30] VITALS (9 sets, daily range): BP systolic 77–153; BP diastolic 45–93
[2016-08-30] MEDS: PIPERACILLIN/TAZOBACTAM 3.375 GM in IV NORMAL SALINE 50ML 50 ML IV SCH ×4 (05:30→23:34)
[2016-08-30] MEDS: MESALAMINE 1.2 GM TABLET.DR PO SCH (05:55)
[2016-08-30] MEDS: HYDROCODONE/APAP 5/325MG TABLET. PO PRN ×4 (06:05→21:45)
[2016-08-30 06:31] LABS: BASO # 0.2 x10^3/uL (0.0-0.2); BASO % 0 % (0-3); EOS % 1 % (0-3); HEMATOCRIT 27.1 % (36.0-47.0); HEMOGLOBIN 8.9 g/dL (12.0-15.5); LYMPH # 1.4 x10^3/uL (1.0-4.8); LYMPH % 4 % (24-48); MEAN CORPUSCULAR HEMOGLOBIN 28 pg (25-35); MEAN CORPUSCULAR HGB CONC 33 g/dL (31-37); MEAN CORPUSCULAR VOLUME 85 fL (79-100); MONO % 4 % (0-9); NEUT % 92 % (31-73); PLATELET COUNT 468 x10^3/uL (140-400); RED CELL DISTRIBUTION WIDTH 14.8 % (11.5-14.5); WHITE BLOOD COUNT 39.4 x10^3/uL (4.0-11.0)
[2016-08-30 06:32] LABS: CALCIUM 7.9 mg/dL (8.5-10.1); CREATININE 0.8 mg/dL (0.6-1.0); GFR 74.5; POTASSIUM 3.8 mmol/L (3.5-5.1)
--- NOTE | 2016-08-30 08:51 | RAD ---
Indication pneumonia. Pneumothorax. A single view of the chest was obtained and is compared to an examination one day earlier. A pigtail catheter in the right pleural space and right PICC line are again noted. Some volume loss at the right lung base is seen appearing similar. No appreciable pneumothorax is seen. A significant change in the appearance of the chest compared to the study yesterday is not seen. IMPRESSION: No significant change in the appearance of the chest.
[2016-08-30] MEDS: PANTOPRAZOLE 40 MG TABLET. PO SCH (08:53)
[2016-08-30] MEDS: LIPASE/PROTEAS/AMYLASE 5/17/27 CAPSULE.DR. PO SCH ×3 (08:54→16:02)
[2016-08-30] MEDS: LACTOBACILLUS ACIDOPH & BULGAR 1 TABLET. PO SCH ×3 (08:54→16:01)
[2016-08-30] MEDS: TRAMADOL 50 MG TABLET. PO SCH ×2 (08:57→21:45)
[2016-08-30] MEDS: CHOLECALCIFEROL (VITAMIN D3) 1,000 UNIT TABLET PO SCH (08:58)
[2016-08-30] MEDS: ASCORBIC ACID 500 MG TABLET PO SCH (08:58)
--- NOTE | 2016-08-30 08:58 | PDOC ---
Provider Note Provider Note DATE OF f/u: 08/30/2016 c/c: Leukocytosis with 1% blasts in a patient with pneumonia. HISTORY OF PRESENT ILLNESS: The patient is a 55-year-old female who presented to [facility] 08/21/2016 with complaints of worsening cough and pleuritic chest pain and dyspnea of one week duration. In the Emergency Room, she was noted to have tachycardia and elevated WBC count of 57,000 and lactic acid of 4.1. She was diagnosed with sepsis. She underwent a chest x-ray that revealed right lower lobe pneumonia with small pneumonic effusion. She underwent CT scan of the abdomen on 08/21/2016 that revealed right lower lobe pneumonia. She underwent a CT scan of the chest on 08/22/2016 that revealed multilobar pneumonia, small to moderate multiloculated right pleural effusion, which might indicate a parapneumonic effusion versus empyema. There is also evidence of mild emphysema. She was started on antibiotics, however, she has progressive dyspnea and hypoxia and hence she was transferred to [facility]. Infectious Disease and pulmonary consultation was obtained, she was started on antibiotics. She underwent right chest tube insertion on 08/25/2016, 130 mL of whitish cloudy right pleural fluid was sent to the lab for evaluation. Her WBC count on 08/26/2016 was 32.2 and on 08/27/2016, it was 54.0. In addition, there was evidence of 23% bands, 5% metamyelocytes, 8%, myelocytes, 1% blasts and hence I was asked to see the patient for further evaluation of leukocytosis. Her hemoglobin was 11.9 with a platelet count of 536. PAST MEDICAL HISTORY: COPD. REVIEW OF SYSTEMS: no n/v, has rt sided CP PHYSICAL EXAMINATION: GENERAL APPEARANCE: The patient is a 55-year-old female who is in no acute cardiorespiratory distress. CHEST: Bilaterally symmetrical, decreased air entry on the right side. HEART: S1, S2 normal. ABDOMEN: Soft, nontender. No hepatosplenomegaly. CENTRAL NERVOUS SYSTEM: No focal neurological deficits. LABORATORY DATA: On 08/27/2016, WBC 54, hemoglobin 11.9, MCV 83, platelet count 536, bands 23%, metamyelocytes 5%, myelocytes 8% and peripheral smear on 08/26/2016 revealed presence of blasts at 1%. IMPRESSION AND PLAN: 1. Severe leukocytosis with a WBC count of 54,000 on 08/27/2016 and hemoglobin of 11.9, platelet count 536,000. There was evidence of elevated bands at 23%, elevated metamyelocytes of 5%, myelocytes of 8%, and 1% blasts. With the presence of sepsis, pneumonia and empyema, this is most likely reactive process. However, in view of worsening myelocytes and the presence of blasts, I would pursue with the bone marrow aspiration and biopsy to make sure that she does not have a primary bone marrow disorder. WBC now 39.4, monitor cbc S/p bone marrow bx 08/29/16. I d/w pathologist, results pending. I will f/u 2. Pneumonia. Continue antibiotics. Appreciate ID consultation. 3. Empyema. Status post right thoracentesis and chest tube placement. 4. Sepsis with lactic acidosis. 5. Fever, improving. 6. Chronic obstructive pulmonary disease. SARAVANAN RAMIREZ MD Aug 30, 2016 08:58
[2016-08-30] MEDS: CETIRIZINE HCL 10 MG TABLET PO SCH (08:59)
[2016-08-30 09:23] LABS: PLT ESTIMATE INCREASED (ADEQUATE)
[2016-08-30 09:37] LABS: % EOS 1 % (0-5)
--- NOTE | 2016-08-30 10:34 | PDOC ---
Infectious Disease Note Subjective Subjective Better. Slept well - again. Site of Bone marrow nontender Still loose stool but better ROS ROS GEN: Denies fevers, chills, sweats HEENT: Denies blurred vision, sore throat CV: Denies chest pain RESP: Denies shortness of air, cough GI: Denies n/v/d NEURO: Denies confusion, dizziness MSK: Denies weakness, joint pain/swelling Vital Sign Vital Signs Vital Signs Date Time Temp Pulse Resp B/P Pulse Ox O2 Delivery O2 Flow Rate FiO2 08/30/16 08:57 19 95 Nasal Cannula 2.0 08/30/16 07:00 92/48 08/30/16 07:00 97.9 89 97.9 Physical Exam PHYSICAL EXAM GENERAL: Propped up in bed, NAD HEENT: OP/OC pink and dry NECK: Supple, no JVD, no LN LUNGS: Clear. Right CT HEART: S1S2, no gallop, no murmur ABD: Soft, NT, BS present : Brar EXT: No edema, no cyanosis JUDGE CLERK: Alert, oriented x 3, no focal neurologic deficit SKIN: No rash RUE-PICC. clean Labs Lab Laboratory Tests Test 08/30/16 06:00 White Blood Count 39.4x10^3/uL (4.0-11.0) Red Blood Count 3.20x10^6/uL (3.50-5.40) Hemoglobin 8.9g/dL (12.0-15.5) Hematocrit 27.1% (36.0-47.0) Mean Corpuscular Volume 85fL (79-100) Mean Corpuscular Hemoglobin 28pg (25-35) Mean Corpuscular Hemoglobin Concent 33g/dL (31-37) Red Cell Distribution Width 14.8% (11.5-14.5) Platelet Count 468x10^3/uL (140-400) Neutrophils (%) (Auto) 92% (31-73) Lymphocytes (%) (Auto) 4% (24-48) Monocytes (%) (Auto) 4% (0-9) Eosinophils (%) (Auto) 1% (0-3) Basophils (%) (Auto) 0% (0-3) Neutrophils # (Auto) 36.2x10^3uL (1.8-7.7) Lymphocytes # (Auto) 1.4x10^3/uL (1.0-4.8) Monocytes # (Auto) 1.4x10^3/uL (0.0-1.1) Eosinophils # (Auto) 0.2x10^3/uL (0.0-0.7) Basophils # (Auto) 0.2x10^3/uL (0.0-0.2) Segmented Neutrophils % 83% (35-66) Band Neutrophils % 6% (0-9) Lymphocytes % 4% (24-48) Monocytes % 1% (0-10) Eosinophils % 1% (0-5) Metamyelocytes % 5% (0-0) Platelet Estimate Increased (ADEQUATE) Sodium Level 135mmol/L (136-145) Potassium Level 3.8mmol/L (3.5-5.1) Chloride Level 103mmol/L (98-107) Carbon Dioxide Level 23mmol/L (21-32) Anion Gap 9 (6-14) Blood Urea Nitrogen 8mg/dL (7-20) Creatinine 0.8mg/dL (0.6-1.0) Estimated GFR (Cockcroft-Gault) 74.5 Glucose Level 80mg/dL (70-99) Calcium Level 7.9mg/dL (8.5-10.1) Objective Assessment Diarrhea - chronic problem at home - some better today. C-diff zee S/p Bone marrow 08/29 CAP Right empyema. s/p chest tube placement, 08/25 Leukocytosis, better Fever. better Sepsis with lactic acidosis Suspected COPD Hypoxia H/o C-diff Plan Plan of Care Continue, Zosyn and Zyvox Await second chest tube placement Strep pneumo antigen pending probiotics Monitor labs supportive care F/u bone marrow NGHIA SONI MD Aug 30, 2016 10:33
--- NOTE | 2016-08-30 12:03 | PDOC ---
PULMONARY PROGRESS NOTES Subjective feels better no soa today Vitals Vital Signs Date Time Temp Pulse Resp B/P Pulse Ox O2 Delivery O2 Flow Rate FiO2 08/30/16 11:00 97.7 98 19 115/60 98 Nasal Cannula 2.0 97.7 Comments ros as above, other sys otherwise neg General: Alert HEENT: Other (nc at perrl, throat nose clear) Lungs: Other (decrease bs right base) Cardiovascular: S1, S2 Abdomen: Soft, Non-tender, Other (no mass) Neuro Exam: Alert, Oriented, No Focal Findings Extremities: No Edema Skin: Warm Labs Laboratory Tests Test 08/29/16 05:10 08/29/16 07:58 08/30/16 06:00 White Blood Count 48.1x10^3/uL (4.0-11.0) 39.4x10^3/uL (4.0-11.0) Red Blood Count 3.40x10^6/uL (3.50-5.40) 3.20x10^6/uL (3.50-5.40) Hemoglobin 9.5g/dL (12.0-15.5) 8.9g/dL (12.0-15.5) Hematocrit 28.9% (36.0-47.0) 27.1% (36.0-47.0) Mean Corpuscular Volume 85fL (79-100) 85fL (79-100) Mean Corpuscular Hemoglobin 28pg (25-35) 28pg (25-35) Mean Corpuscular Hemoglobin Concent 33g/dL (31-37) 33g/dL (31-37) Red Cell Distribution Width 14.8% (11.5-14.5) 14.8% (11.5-14.5) Platelet Count 442x10^3/uL (140-400) 468x10^3/uL (140-400) Neutrophils (%) (Auto) 93% (31-73) 92% (31-73) Lymphocytes (%) (Auto) 3% (24-48) 4% (24-48) Monocytes (%) (Auto) 3% (0-9) 4% (0-9) Eosinophils (%) (Auto) 1% (0-3) 1% (0-3) Basophils (%) (Auto) 0% (0-3) 0% (0-3) Neutrophils # (Auto) 44.8x10^3uL (1.8-7.7) 36.2x10^3uL (1.8-7.7) Lymphocytes # (Auto) 1.5x10^3/uL (1.0-4.8) 1.4x10^3/uL (1.0-4.8) Monocytes # (Auto) 1.3x10^3/uL (0.0-1.1) 1.4x10^3/uL (0.0-1.1) Eosinophils # (Auto) 0.4x10^3/uL (0.0-0.7) 0.2x10^3/uL (0.0-0.7) Basophils # (Auto) 0.1x10^3/uL (0.0-0.2) 0.2x10^3/uL (0.0-0.2) Sodium Level 133mmol/L (136-145) 135mmol/L (136-145) Potassium Level 3.7mmol/L (3.5-5.1) 3.8mmol/L (3.5-5.1) Chloride Level 102mmol/L (98-107) 103mmol/L (98-107) Carbon Dioxide Level 23mmol/L (21-32) 23mmol/L (21-32) Anion Gap 8 (6-14) 9 (6-14) Blood Urea Nitrogen 9mg/dL (7-20) 8mg/dL (7-20) Creatinine 0.9mg/dL (0.6-1.0) 0.8mg/dL (0.6-1.0) Estimated GFR (Cockcroft-Gault) 65.0 74.5 Glucose Level 92mg/dL (70-99) 80mg/dL (70-99) Calcium Level 7.7mg/dL (8.5-10.1) 7.9mg/dL (8.5-10.1) Prothrombin Time 14.5SEC (11.7-14.0) Prothromb Time International Ratio 1.2 (0.8-1.1) Segmented Neutrophils % 83% (35-66) Band Neutrophils % 6% (0-9) Lymphocytes % 4% (24-48) Monocytes % 1% (0-10) Eosinophils % 1% (0-5) Metamyelocytes % 5% (0-0) Platelet Estimate Increased (ADEQUATE) Laboratory Tests Test 08/30/16 06:00 White Blood Count 39.4x10^3/uL (4.0-11.0) Red Blood Count 3.20x10^6/uL (3.50-5.40) Hemoglobin 8.9g/dL (12.0-15.5) Hematocrit 27.1% (36.0-47.0) Mean Corpuscular Volume 85fL (79-100) Mean Corpuscular Hemoglobin 28pg (25-35) Mean Corpuscular Hemoglobin Concent 33g/dL (31-37) Red Cell Distribution Width 14.8% (11.5-14.5) Platelet Count 468x10^3/uL (140-400) Neutrophils (%) (Auto) 92% (31-73) Lymphocytes (%) (Auto) 4% (24-48) Monocytes (%) (Auto) 4% (0-9) Eosinophils (%) (Auto) 1% (0-3) Basophils (%) (Auto) 0% (0-3) Neutrophils # (Auto) 36.2x10^3uL (1.8-7.7) Lymphocytes # (Auto) 1.4x10^3/uL (1.0-4.8) Monocytes # (Auto) 1.4x10^3/uL (0.0-1.1) Eosinophils # (Auto) 0.2x10^3/uL (0.0-0.7) Basophils # (Auto) 0.2x10^3/uL (0.0-0.2) Segmented Neutrophils % 83% (35-66) Band Neutrophils % 6% (0-9) Lymphocytes % 4% (24-48) Monocytes % 1% (0-10) Eosinophils % 1% (0-5) Metamyelocytes % 5% (0-0) Platelet Estimate Increased (ADEQUATE) Sodium Level 135mmol/L (136-145) Potassium Level 3.8mmol/L (3.5-5.1) Chloride Level 103mmol/L (98-107) Carbon Dioxide Level 23mmol/L (21-32) Anion Gap 9 (6-14) Blood Urea Nitrogen 8mg/dL (7-20) Creatinine 0.8mg/dL (0.6-1.0) Estimated GFR (Cockcroft-Gault) 74.5 Glucose Level 80mg/dL (70-99) Calcium Level 7.9mg/dL (8.5-10.1) Medications Active Scripts Medications Dose Route/Sig Days Date Category Zyprexa (Olanzapine) 2.5 Mg Tablet 1 Tab PO QHS 01/15/16 Reported Tizanidine Hcl 4 Mg Tablet 4 Mg PO TID PRN 01/14/16 Reported Tramadol Hcl 50 Mg Tablet 50 Mg PO BID PRN 01/14/16 Reported Lialda (Mesalamine) 1.2 Gm Tablet.dr 4 Tab PO DAILY 01/14/16 Reported Comments cxr reviewed, 1. Minimal interval decrease in left greater than right multifocal pneumonia. 2. Stable small right pleural effusion with suspected loculated lateral right pleural fluid component or pleural thickening. There is a right pleural drainage catheter unchanged in position. 3. Right PICC exiting cephalad into the right internal jugular vein. Catheter repositioning is indicated. Impression . 1. Acute hypoxic respiratory failure, This is secondary to extensive multilobar community-acquired pneumonia/ multiloculated effusion, clinically empyema. 2. chronic obstructive pulmonary disease, could be severe. 3. Persistent severe leukocytosis This is probably related to underlying extensive pneumonia and sepsis./ BM aspiration 08/29 4. Severe protein-calorie malnutrition with an albumin level of 1.4. 5. Lactic acidosis present on admission on 08/21/2016 at [facility] related to sepsis from pneumonia. 6. Normal ejection fraction by echo with a pulmonary artery systolic pressure of 49. Suspect this is secondary to underlying chronic obstructive pulmonary disease. 7. smoker Plan . 1. cont Zosyn and Levaquin, zyvox and po vanc. 2. d/w patient regarding repeat ct chest findings. chest tube is not communicating with other large pocket of fluid. Would benefit from another tube and possible intra-pleural TPA. Last option would be De-cortication. scheduled for today. holding lovenox 3. cont chest tube to suction to -30. ph, 6.9 c/w empyema 4. Bronchodilators. 5. Deep venous thrombosis prophylaxis. 6. Stress ulcer prophylaxis. 7. Continue BiPAP prn 8. 02 titration 9. Monitor white cell count. follow BP aspirate results 10. advised to quit smoking, 11. pain control HERBER PERALES MD Aug 30, 2016 12:03
--- NOTE | 2016-08-30 13:44 | PDOC ---
PROGRESS NOTES Chief Complaint Chief Complaint Acute hypoxic respiratory failure ASSESSMENT AND PLAN: 1. PNA: multilobar. on broad spectrum coverage (zosyn, linezolid) 2. Empyema: CT in place, but fluid loculated. IR to address later today 3. COPD exacerbation: as per dr Brown. BiPAP PRN 4. Sepsis: resolved 5. Leukocytosis with severe left shift: s/p BM bx today by Dr Jamison. prob leukemoid rxn from infect (vs primary BM d/o) 6. HTN, tachycardia: add BB 5. UC: on mesalamine, pancreatic enzymes, macrobiotics 6. Depression: on zyprexa 7. Smoker: nicotine patch; cessation advised 8. Migraine: imitrex PRN 9. chest pain: musculoskeletal w/ CT: increase frequency of pain meds to q4 PRN 10. Prophylaxis: lovenox, PPI Vitals Vitals Vital Signs Date Time Temp Pulse Resp B/P Pulse Ox O2 Delivery O2 Flow Rate FiO2 08/30/16 11:44 20 98 Nasal Cannula 2.0 08/30/16 11:00 97.7 98 115/60 97.7 Physical Exam General: Alert, Oriented X3 Heart: Normal S1, Normal S2 Lungs: Other (decrease bs right base) Abdomen: Normal bowel sounds Extremities: No clubbing, No cyanosis Labs LABS Laboratory Tests Test 08/30/16 06:00 White Blood Count 39.4x10^3/uL (4.0-11.0) Red Blood Count 3.20x10^6/uL (3.50-5.40) Hemoglobin 8.9g/dL (12.0-15.5) Hematocrit 27.1% (36.0-47.0) Mean Corpuscular Volume 85fL (79-100) Mean Corpuscular Hemoglobin 28pg (25-35) Mean Corpuscular Hemoglobin Concent 33g/dL (31-37) Red Cell Distribution Width 14.8% (11.5-14.5) Platelet Count 468x10^3/uL (140-400) Neutrophils (%) (Auto) 92% (31-73) Lymphocytes (%) (Auto) 4% (24-48) Monocytes (%) (Auto) 4% (0-9) Eosinophils (%) (Auto) 1% (0-3) Basophils (%) (Auto) 0% (0-3) Neutrophils # (Auto) 36.2x10^3uL (1.8-7.7) Lymphocytes # (Auto) 1.4x10^3/uL (1.0-4.8) Monocytes # (Auto) 1.4x10^3/uL (0.0-1.1) Eosinophils # (Auto) 0.2x10^3/uL (0.0-0.7) Basophils # (Auto) 0.2x10^3/uL (0.0-0.2) Segmented Neutrophils % 83% (35-66) Band Neutrophils % 6% (0-9) Lymphocytes % 4% (24-48) Monocytes % 1% (0-10) Eosinophils % 1% (0-5) Metamyelocytes % 5% (0-0) Platelet Estimate Increased (ADEQUATE) Sodium Level 135mmol/L (136-145) Potassium Level 3.8mmol/L (3.5-5.1) Chloride Level 103mmol/L (98-107) Carbon Dioxide Level 23mmol/L (21-32) Anion Gap 9 (6-14) Blood Urea Nitrogen 8mg/dL (7-20) Creatinine 0.8mg/dL (0.6-1.0) Estimated GFR (Cockcroft-Gault) 74.5 Glucose Level 80mg/dL (70-99) Calcium Level 7.9mg/dL (8.5-10.1) Review of Systems Review of Systems pain better, slept through the night Comment Review of Relevant I have reviewed the following items randi (where applicable) has been applied. Labs Laboratory Tests Test 08/29/16 05:10 08/29/16 07:58 08/30/16 06:00 White Blood Count 48.1x10^3/uL (4.0-11.0) 39.4x10^3/uL (4.0-11.0) Red Blood Count 3.40x10^6/uL (3.50-5.40) 3.20x10^6/uL (3.50-5.40) Hemoglobin 9.5g/dL (12.0-15.5) 8.9g/dL (12.0-15.5) Hematocrit 28.9% (36.0-47.0) 27.1% (36.0-47.0) Mean Corpuscular Volume 85fL (79-100) 85fL (79-100) Mean Corpuscular Hemoglobin 28pg (25-35) 28pg (25-35) Mean Corpuscular Hemoglobin Concent 33g/dL (31-37) 33g/dL (31-37) Red Cell Distribution Width 14.8% (11.5-14.5) 14.8% (11.5-14.5) Platelet Count 442x10^3/uL (140-400) 468x10^3/uL (140-400) Neutrophils (%) (Auto) 93% (31-73) 92% (31-73) Lymphocytes (%) (Auto) 3% (24-48) 4% (24-48) Monocytes (%) (Auto) 3% (0-9) 4% (0-9) Eosinophils (%) (Auto) 1% (0-3) 1% (0-3) Basophils (%) (Auto) 0% (0-3) 0% (0-3) Neutrophils # (Auto) 44.8x10^3uL (1.8-7.7) 36.2x10^3uL (1.8-7.7) Lymphocytes # (Auto) 1.5x10^3/uL (1.0-4.8) 1.4x10^3/uL (1.0-4.8) Monocytes # (Auto) 1.3x10^3/uL (0.0-1.1) 1.4x10^3/uL (0.0-1.1) Eosinophils # (Auto) 0.4x10^3/uL (0.0-0.7) 0.2x10^3/uL (0.0-0.7) Basophils # (Auto) 0.1x10^3/uL (0.0-0.2) 0.2x10^3/uL (0.0-0.2) Sodium Level 133mmol/L (136-145) 135mmol/L (136-145) Potassium Level 3.7mmol/L (3.5-5.1) 3.8mmol/L (3.5-5.1) Chloride Level 102mmol/L (98-107) 103mmol/L (98-107) Carbon Dioxide Level 23mmol/L (21-32) 23mmol/L (21-32) Anion Gap 8 (6-14) 9 (6-14) Blood Urea Nitrogen 9mg/dL (7-20) 8mg/dL (7-20) Creatinine 0.9mg/dL (0.6-1.0) 0.8mg/dL (0.6-1.0) Estimated GFR (Cockcroft-Gault) 65.0 74.5 Glucose Level 92mg/dL (70-99) 80mg/dL (70-99) Calcium Level 7.7mg/dL (8.5-10.1) 7.9mg/dL (8.5-10.1) Prothrombin Time 14.5SEC (11.7-14.0) Prothromb Time International Ratio 1.2 (0.8-1.1) Segmented Neutrophils % 83% (35-66) Band Neutrophils % 6% (0-9) Lymphocytes % 4% (24-48) Monocytes % 1% (0-10) Eosinophils % 1% (0-5) Metamyelocytes % 5% (0-0) Platelet Estimate Increased (ADEQUATE) Laboratory Tests Test 08/30/16 06:00 White Blood Count 39.4x10^3/uL (4.0-11.0) Red Blood Count 3.20x10^6/uL (3.50-5.40) Hemoglobin 8.9g/dL (12.0-15.5) Hematocrit 27.1% (36.0-47.0) Mean Corpuscular Volume 85fL (79-100) Mean Corpuscular Hemoglobin 28pg (25-35) Mean Corpuscular Hemoglobin Concent 33g/dL (31-37) Red Cell Distribution Width 14.8% (11.5-14.5) Platelet Count 468x10^3/uL (140-400) Neutrophils (%) (Auto) 92% (31-73) Lymphocytes (%) (Auto) 4% (24-48) Monocytes (%) (Auto) 4% (0-9) Eosinophils (%) (Auto) 1% (0-3) Basophils (%) (Auto) 0% (0-3) Neutrophils # (Auto) 36.2x10^3uL (1.8-7.7) Lymphocytes # (Auto) 1.4x10^3/uL (1.0-4.8) Monocytes # (Auto) 1.4x10^3/uL (0.0-1.1) Eosinophils # (Auto) 0.2x10^3/uL (0.0-0.7) Basophils # (Auto) 0.2x10^3/uL (0.0-0.2) Segmented Neutrophils % 83% (35-66) Band Neutrophils % 6% (0-9) Lymphocytes % 4% (24-48) Monocytes % 1% (0-10) Eosinophils % 1% (0-5) Metamyelocytes % 5% (0-0) Platelet Estimate Increased (ADEQUATE) Sodium Level 135mmol/L (136-145) Potassium Level 3.8mmol/L (3.5-5.1) Chloride Level 103mmol/L (98-107) Carbon Dioxide Level 23mmol/L (21-32) Anion Gap 9 (6-14) Blood Urea Nitrogen 8mg/dL (7-20) Creatinine 0.8mg/dL (0.6-1.0) Estimated GFR (Cockcroft-Gault) 74.5 Glucose Level 80mg/dL (70-99) Calcium Level 7.9mg/dL (8.5-10.1) Microbiology 08/25/16 Anaerobic/Aerobic Culture - Preliminary, Resulted 08/25/16 Anaerobic Culture Result 1 (BRUCE) - Preliminary, Resulted 08/25/16 Aerobic Culture - Final, Resulted 08/25/16 Aerobic Culture Result 1 (BRUCE) - Final, Resulted Medications Current Medications Acetaminophen (Tylenol) 325 mg PRN Q6HRS PRN PO MILD PAIN / TEMP Last administered on 08/26/16 08:29; Start 08/25/16 at 12:45 Acetaminophen/ Hydrocodone Bitart (Lortab 5/325) 1 tab PRN Q6HRS PRN PO MODERATE PAIN Last administered on 08/27/16 02:06; Start 08/25/16 at 12:45; Stop 08/29/16 at 16:41; Status DC Hydralazine HCl (Apresoline) 10 mg PRN Q4HRS PRN IVP ELEVATED BP, SEE COMMENTS Last administered on 08/26/16 05:07; Start 08/25/16 at 12:45 Ondansetron HCl (Zofran) 4 mg PRN Q8HRS PRN IV NAUSEA/VOMITING Last administered on 08/25/16 15:42; Start 08/25/16 at 12:45; Stop 08/27/16 at 08:44 ; Status DC Albuterol Sulfate 2.5 mg 2.5 mg PRN Q4HRS PRN NEB SHORTNESS OF BREATH; Start at 12:45 Piperacillin Sod/ Tazobactam Sod 3.375 gm/Sodium Chloride 50 ml @ 100 mls/hr Q6HRS IV Last administered on 08/30/16 11:26; Start 08/25/16 at 13:00 Linezolid (Zyvox Premix) 300 ml @ 300 mls/hr Q12HR IV Last administered on 08:55; Start 08/25/16 at 14:00 Piperacillin Sod/ Tazobactam Sod 1 each 1 each PRN DAILY PRN MC SEE COMMENTS; Start 08/25/16 at 13:45; Stop 08/27/16 at 12:41; Status DC Levofloxacin/ Dextrose (LEVAQUIN 750mg PREMIX) 150 ml @ 100 mls/hr Q24H IV Last administered on 08/28/16 13:51; Start 08/25/16 at 14:00; Stop 08/28/16 at 14:37; Status DC Lidocaine/Sodium Bicarbonate (Buffered Lidocaine 1%) 20 ml STK-MED ONCE IJ ; Start 08/25/16 at 14:00; Stop 08/25/16 at 14:01; Status DC Lidocaine/Sodium Bicarbonate (Buffered Lidocaine 1%) 5 ml 1X ONCE IJ Last administered on 08/25/16 14:59; Start 08/25/16 at 15:00; Stop 08/25/16 at 15:01 ; Status DC Info (Do NOT chart on this placeholder) 1 each 1X ONCE MC ; Start 08/25/16 at 17:00; Stop 08/25/16 at 17:01; Status UNV Pneumococcal Polyvalent Vaccine (Do NOT chart on this placeholder) 1 each 1X ONCE MC ; Start 08/25/16 at 17:00; Stop 08/25/16 at 17:01; Status UNV Influenza Virus Vaccine Quadrival (Fluarix Quad [id number] Syringe) 0.5 ml ONCE ONCE VAX IM ; Start 08/26/16 at 09:00; Stop 08/26/16 at 09:01; Status DC Pneumococcal Polyvalent Vaccine (Pneumovax 23) 0.5 ml ONCE ONCE VAX IM ; Start 08/26/16 at 09:00; Stop 08/26/16 at 09:01; Status DC Enoxaparin Sodium (Lovenox 40mg Syringe) 40 mg Q24H SQ Last administered on 08:19; Start 08/26/16 at 09:00; Stop 08/29/16 at 11:45; Status DC Fentanyl Citrate (Fentanyl 2ml Vial) 25 mcg PRN Q4HRS PRN IV PAIN Last administered on 08/27/16 06:13; Start 08/26/16 at 08:30; Stop 08/29/16 at 15:07 ; Status DC Potassium Chloride (Klor-Con) 40 meq 1X ONCE PO Last administered on 11:24; Start 08/26/16 at 10:45; Stop 08/26/16 at 10:49; Status DC Mesalamine (Lialda) 4.8 gm DAILY06 PO Last administered on 08/30/16 05:55; Start 08/26/16 at 13:30 Olanzapine (Zyprexa) 2.5 mg HS PO Last administered on 08/29/16 21:18; Start 08/26/16 at 21:00 Sumatriptan Succinate (Imitrex) 100 mg PRN Q2HR PRN PO MIGRAINE HEADACHE; Start 08/26/16 at 13:30 Tizanidine HCl (Zanaflex) 4 mg QHS PO Last administered on 08/26/16 19:57; Start 08/26/16 at 21:00; Stop 08/26/16 at 21:00; Status DC Tramadol HCl (Ultram) 50 mg BID PO Last administered on 08/30/16 08:57; Start 08/26/16 at 14:00 Ascorbic Acid (Vitamin C) 1,000 mg DAILY PO Last administered on 08/30/16 08: 58; Start 08/27/16 at 09:00 Amylase/Lipase/ Protease (Zenpep 5,000) 5 cap TIDWMEALS PO Last administered on 08/30/16 08:54; Start 08/26/16 at 17:00 Niacin (Slo-Niacin) 500 mg QHS PO Last administered on 08/29/16 21:19; Start 08/26/16 at 21:00 Pantoprazole Sodium (Protonix) 40 mg DAILYAC PO Last administered on 08/30/16 08:53; Start 08/26/16 at 14:00 Non-Formulary Medication 1 tab DAILY PO ; Start 08/27/16 at 09:00; Status UNV Diphenoxylate HCl/ Atropine (Lomotil) 1 tab PRN QID PRN PO DIARRHEA Last administered on 08/28/16 14:03; Start 08/26/16 at 13:45 Tizanidine HCl (Zanaflex) 20 mg QHS PO Last administered on 08/29/16 21:19; Start 08/26/16 at 21:00 Acetaminophen/ Hydrocodone Bitart (Lortab 5/325) 2 tab PRN Q6HRS PRN PO SEVERE PAIN Last administered on 08/29/16 10:47; Start 08/27/16 at 04:45; Stop at 16:41; Status DC Ondansetron HCl (Zofran) 4 mg PRN Q6HRS PRN IV NAUSEA/VOMITING; Start 08/27/16 at 08:42 Vancomycin HCl 125 mg [id number] PO Last administered on 08/28/16 20:54; Start at 16:00; Stop 08/29/16 at 10:24; Status DC Lactobacillus Acidophilus 1 tab 1 tab TIDWMEALS PO Last administered on 08:54; Start 08/27/16 at 17:00 Sodium Chloride (Iv Sodium Chloride 0.9% 500ml Bag) 500 ml @ 500 mls/hr 1X ONCE IV Last administered on 08/28/16 00:52; Start 08/28/16 at 01:00; Stop at 01:59; Status DC Nicotine (Nicoderm Cq 21mg) 1 patch PRN DAILY PRN TD SMOKING CESSATION; Start 08/28/16 at 09:30 Cetirizine HCl (Zyrtec) 10 mg DAILY PO Last administered on 08/30/16 08:59; Start 08/28/16 at 10:00 Vitamin D (Vitamin D3) 1,000 unit DAILY PO Last administered on 08/30/16 08:58 ; Start 08/28/16 at 10:00 Iohexol (Omnipaque 300 Mg/ml) 75 ml 1X ONCE IV Last administered on 08/28/16 10:53; Start 08/28/16 at 10:15; Stop 08/28/16 at 10:16; Status DC Info (Do NOT chart on this entry -- for MONITORING) 1 each PRN DAILY PRN MC SEE COMMENTS; Start 08/28/16 at 10:00; Stop 08/30/16 at 09:59; Status DC Potassium Chloride (Klor-Con) 40 meq 1X ONCE PO Last administered on 13:52; Start 08/28/16 at 13:00; Stop 08/28/16 at 13:01; Status DC Lidocaine/Sodium Bicarbonate (Buffered Lidocaine 1%) 20 ml STK-MED ONCE IJ ; Start 08/29/16 at 08:36; Stop 08/29/16 at 08:37; Status DC Naloxone HCl (Narcan) 0.4 mg STK-MED ONCE .ROUTE ; Start 08/29/16 at 08:37; Stop 08/29/16 at 08:38; Status DC Flumazenil (Romazicon) 0.5 mg STK-MED ONCE IV ; Start 08/29/16 at 08:37; Stop at 08:38; Status DC Midazolam HCl (Versed) 5 mg STK-MED ONCE .ROUTE ; Start 08/29/16 at 08:37; Stop 08/29/16 at 08:38; Status DC Fentanyl Citrate (Fentanyl 5ml Vial) 250 mcg STK-MED ONCE .ROUTE ; Start at 08:37; Stop 08/29/16 at 08:38; Status DC Lidocaine/Sodium Bicarbonate (Buffered Lidocaine 1%) 6 ml 1X ONCE IJ Last administered on 08/29/16 09:09; Start 08/29/16 at 09:15; Stop 08/29/16 at 09:16 ; Status DC Midazolam HCl (Versed) 2 mg 1X ONCE IV Last administered on 1/16/17at 09:08; Start 08/29/16 at 09:15; Stop 08/29/16 at 09:16; Status DC Fentanyl Citrate (Fentanyl 5ml Vial) 100 mcg 1X ONCE IV Last administered on 09:08; Start 08/29/16 at 09:15; Stop 08/29/16 at 09:16; Status DC Enoxaparin Sodium (Lovenox 40mg Syringe) 40 mg Q24H SQ ; Start 08/29/16 at 16:00 Acetaminophen/ Hydrocodone Bitart (Lortab 5/325) 1 tab PRN Q4HRS PRN PO MODERATE PAIN; Start 08/29/16 at 16:45 Acetaminophen/ Hydrocodone Bitart (Lortab 5/325) 2 tab PRN Q4HRS PRN PO SEVERE PAIN Last administered on 08/30/16 10:44; Start 08/29/16 at 16:45 Active Scripts Active Reported [diphen/atropine] 2.5 Mg PO PRN QID PRN Prilosec Otc (Omeprazole Magnesium) 20 Mg Tablet. 1 Tab PO DAILY Lialda (Mesalamine) 1.2 Gm Tablet. 4 Tab PO DAILY06 Tizanidine Hcl 4 Mg Tablet 5 Tab PO QHS Olanzapine 2.5 Mg Tablet 2.5 Mg PO HS Zyrtec (Cetirizine Hcl) 10 Mg Capsule 10 Mg PO DAILY Dhea 50 Mg Tablet (Prasterone (Dhea)/Calcium Carb) 1 Each Tablet 1 Tab PO DAILY Niacin 500 Mg Tablet 500 Mg PO HS Vitamin D3 (Cholecalciferol (Vitamin D3)) 1,000 Unit Capsule 1,000 Unit PO DAILY Vitamin C (Ascorbic Acid) 1,000 Mg Tab.chew 1,000 Mg PO DAILY Imitrex (Sumatriptan Succinate) 100 Mg Tablet 100 Mg PO ONCE PRN Tramadol Hcl 50 Mg Tablet 4 Tab PO BID Zenpep 25,000 Units Capsule (Lipase/Protease/Amylase) 1 Each Capsule. 1 Each PO TIDAFTMEAL Vitals/I & O Vital Sign - Last 24 Hours 08/29/16 08/29/16 08/29/16 08/29/16 15:00 17:10 19:00 20:02 Temp 97.3 98.4 97.3 98.4 Pulse 112 104 Resp 20 20 20 B/P 116/50 132/73 Pulse Ox 97 97 96 O2 Delivery Nasal Cannula Nasal Cannula Nasal Cannula Nasal Cannula O2 Flow Rate 2.0 2.0 2.0 08/29/16 08/29/16 08/29/16 08/30/16 21:18 21:22 23:00 03:06 Temp 97.5 97.9 97.5 97.9 Pulse 79 67 Resp 18 18 20 20 B/P 90/51 77/45 Pulse Ox 96 96 97 95 O2 Delivery Nasal Cannula Nasal Cannula Nasal Cannula Nasal Cannula O2 Flow Rate 2.0 2.0 08/30/16 08/30/16 08/30/16 08/30/16 06:05 07:00 07:00 08:00 Temp 97.9 97.9 Pulse 89 Resp 18 19 B/P 91/48 92/48 Pulse Ox 95 95 O2 Delivery Nasal Cannula Nasal Cannula Nasal Cannula O2 Flow Rate 2.0 2.0 2.0 08/30/16 08/30/16 08/30/16 08/30/16 08:57 09:57 10:44 11:00 Temp 97.7 97.7 Pulse 98 Resp 20 19 B/P 115/60 Pulse Ox 95 95 95 98 O2 Delivery Nasal Cannula Nasal Cannula Nasal Cannula Nasal Cannula O2 Flow Rate 2.0 2.0 2.0 2.0 08/30/16 11:44 Resp 20 Pulse Ox 98 O2 Delivery Nasal Cannula O2 Flow Rate 2.0 Intake and Output 08/29/16 08/29/16 08/30/16 15:00 23:00 07:00 Intake Total 600 ml 360 ml Output Total 1175 ml 1100 ml Balance -575 ml -740 ml PRADEEP NARAYANAN MD Aug 30, 2016 13:44
[2016-08-30] MEDS ORDERED: LIDOCAINE 1% / SOD BICARB 8.4% 20 ML VIAL. IJ ONE ×2 (13:57→14:50)
[2016-08-30] MEDS ORDERED: FENTANYL PF 100 MCG/2 ML VIAL. ONE (14:22)
[2016-08-30] MEDS ORDERED: MIDAZOLAM HCL 2 MG/2 ML VIAL. ONE (14:22)
[2016-08-30] MEDS ORDERED: FENTANYL PF 100 MCG/2 ML VIAL. IV ONE (14:45)
[2016-08-30] MEDS ORDERED: MIDAZOLAM HCL 2 MG/2 ML VIAL. IV ONE (14:45)
--- NOTE | 2016-08-30 15:02 | PDOC ---
BRIEF OPERATIVE NOTE Pre-Op Diagnosis Right pleural effusion - complex Post-Op Diagnosis same Procedure Performed CT guided chest tube placement Surgeon Tasha Anesthesia Type: Conscious Sedation Specimens Obtained 60 cc slightly turbid yellow pleural fluid Findings 12F drain Complications No immediate SUE LU MD Aug 30, 2016 15:02
[2016-08-30] MEDS: ENOXAPARIN 40 MG/0.4 ML DISP.SYRIN. SQ SCH (16:01)
[2016-08-30] MEDS: METOPROLOL TART IMMED RELEASE 25 MG TABLET PO SCH (21:44)
[2016-08-30] MEDS: tiZANidine 4 MG TABLET. PO SCH (21:44)
[2016-08-30] MEDS: NIACIN ER 500 MG TABLET.ER PO SCH (21:44)
[2016-08-30] MEDS: OLANZAPINE 2.5 MG TABLET PO SCH (21:44)
[2016-08-31] MEDS: HYDROCODONE/APAP 5/325MG TABLET. PO PRN ×4 (01:33→15:14)
[2016-08-31 03:05] VITALS: BP 89/51
[2016-08-31] MEDS: PIPERACILLIN/TAZOBACTAM 3.375 GM in IV NORMAL SALINE 50ML 50 ML IV SCH ×3 (05:09→17:16)
[2016-08-31] MEDS: MESALAMINE 1.2 GM TABLET.DR PO SCH (05:26)
[2016-08-31 05:58] LABS: BASO # 0.1 x10^3/uL (0.0-0.2); BASO % 0 % (0-3); EOS % 1 % (0-3); HEMATOCRIT 25.4 % (36.0-47.0); HEMOGLOBIN 8.2 g/dL (12.0-15.5); LYMPH # 1.7 x10^3/uL (1.0-4.8); LYMPH % 6 % (24-48); MEAN CORPUSCULAR HEMOGLOBIN 27 pg (25-35); MEAN CORPUSCULAR HGB CONC 32 g/dL (31-37); MEAN CORPUSCULAR VOLUME 85 fL (79-100); MONO % 4 % (0-9); NEUT % 89 % (31-73); PLATELET COUNT 488 x10^3/uL (140-400); RED BLOOD COUNT 2.98 x10^6/uL (3.50-5.40); RED CELL DISTRIBUTION WIDTH 14.7 % (11.5-14.5); WHITE BLOOD COUNT 30.6 x10^3/uL (4.0-11.0)
[2016-08-31 06:06] LABS: GFR 57.6
[2016-08-31 07:00] VITALS: BP 93/54
[2016-08-31] MEDS: PANTOPRAZOLE 40 MG TABLET. PO SCH (07:47)
[2016-08-31] MEDS: TRAMADOL 50 MG TABLET. PO SCH (07:48)
[2016-08-31] MEDS: METOPROLOL TART IMMED RELEASE 25 MG TABLET PO SCH (09:00)
--- NOTE | 2016-08-31 09:01 | RAD ---
Procedure: CT-guided right chest tube placement Clinical Indication: 55-year-old with multiloculated right pleural effusion, suspected empyema Sedation: Conscious sedation was administered for 22 minutes. The patient was monitored by a qualified independent observer throughout the time of sedation. Please refer to the medical record for exact doses of medications utilized to achieve moderate sedation. Antibiotics: None Contrast: None Sterility: The procedure was performed in its entirety using appropriate elements of sterile technique. Consent: The procedure was explained in its entirety to the patient or the patients designated safety representative by a member of the treatment team, including a discussion of the risks, benefits and commonly accepted alternatives to the procedure, as well as the expected consequences of no therapy whatsoever. Discussion of the risks included, but was not limited to, those that are most frequent and those that are rare but possibly severe or life-threatening, as well as the possibility of unforeseen complications. Technique and Findings: Following informed consent, the patient was prepped and draped in usual sterile fashion. Preliminary CT scan of the area of interest was performed. 1% lidocaine was used to achieve local anesthesia. Under periodic CT surveillance, a 21-gauge micropuncture needle was advanced into the pleural fluid collection. The needle was then exchanged over wire for serial dilators followed by a 12 [place] pigtail drainage catheter. This catheter was sutured to the skin and placed to Pleur-evac drainage. Complications: No immediate Impression: 1. CT-guided right chest tube placement as described PQRS Compliance Statement: One or more of the following individualized dose reduction techniques were utilized for this examination: 1. Automated exposure control 2. Adjustment of the mA and/or kV according to patient size 3. Use of iterative reconstruction technique
--- NOTE | 2016-08-31 09:12 | PDOC ---
Infectious Disease Note Subjective Subjective Doing ok.. Occ pain with new CT Site of Bone marrow nontender Still loose stool but better ROS ROS GEN: Denies fevers, chills, sweats HEENT: Denies blurred vision, sore throat CV: Denies chest pain RESP: Denies shortness of air, cough GI: Denies n/v/d NEURO: Denies confusion, dizziness MSK: Denies weakness, joint pain/swelling Vital Sign Vital Signs Vital Signs Date Time Temp Pulse Resp B/P Pulse Ox O2 Delivery O2 Flow Rate FiO2 08/31/16 08:23 96 Nasal Cannula 2.0 08/31/16 07:48 20 08/31/16 07:00 96.4 71 93/54 96.4 Physical Exam PHYSICAL EXAM GENERAL: Propped up in bed, NAD HEENT: OP/OC pink and dry NECK: Supple, no JVD, no LN LUNGS: Clear. Right CT times 2 HEART: S1S2, no gallop, no murmur ABD: Soft, NT, BS present : Brar EXT: No edema, no cyanosis ASSURANCE MANAGER: Alert, oriented x 3, no focal neurologic deficit SKIN: No rash RUE-PICC. clean Labs Lab Laboratory Tests Test 08/30/16 14:50 08/31/16 05:40 Body Fluid pH 7.1 White Blood Count 30.6x10^3/uL (4.0-11.0) Red Blood Count 2.98x10^6/uL (3.50-5.40) Hemoglobin 8.2g/dL (12.0-15.5) Hematocrit 25.4% (36.0-47.0) Mean Corpuscular Volume 85fL (79-100) Mean Corpuscular Hemoglobin 27pg (25-35) Mean Corpuscular Hemoglobin Concent 32g/dL (31-37) Red Cell Distribution Width 14.7% (11.5-14.5) Platelet Count 488x10^3/uL (140-400) Neutrophils (%) (Auto) 89% (31-73) Lymphocytes (%) (Auto) 6% (24-48) Monocytes (%) (Auto) 4% (0-9) Eosinophils (%) (Auto) 1% (0-3) Basophils (%) (Auto) 0% (0-3) Neutrophils # (Auto) 27.4x10^3uL (1.8-7.7) Lymphocytes # (Auto) 1.7x10^3/uL (1.0-4.8) Monocytes # (Auto) 1.2x10^3/uL (0.0-1.1) Eosinophils # (Auto) 0.3x10^3/uL (0.0-0.7) Basophils # (Auto) 0.1x10^3/uL (0.0-0.2) Sodium Level 134mmol/L (136-145) Potassium Level 4.0mmol/L (3.5-5.1) Chloride Level 101mmol/L (98-107) Carbon Dioxide Level 24mmol/L (21-32) Anion Gap 9 (6-14) Blood Urea Nitrogen 10mg/dL (7-20) Creatinine 1.0mg/dL (0.6-1.0) Estimated GFR (Cockcroft-Gault) 57.6 Glucose Level 96mg/dL (70-99) Calcium Level 8.0mg/dL (8.5-10.1) Objective Assessment Diarrhea - chronic problem at home - some better today. C-diff zee S/p Bone marrow 08/29 CAP Right empyema. s/p chest tube placement, 08/25 and 08/30 - pH 7.1 Leukocytosis, better Fever. better Sepsis with lactic acidosis Suspected COPD Hypoxia H/o C-diff Plan Plan of Care Continue, Zosyn and Zyvox Strep pneumo antigen pending not back - does not appear to have collected Cont probiotics Monitor labs/cults supportive care F/u bone marrow NGHIA SONI MD Aug 31, 2016 09:12
[2016-08-31] MEDS: DIPHENOXYLATE/ATROPINE TABLET. PO PRN (09:53)
[2016-08-31] MEDS: CETIRIZINE HCL 10 MG TABLET PO SCH (09:53)
[2016-08-31] MEDS: CHOLECALCIFEROL (VITAMIN D3) 1,000 UNIT TABLET PO SCH (09:55)
[2016-08-31] MEDS: LACTOBACILLUS ACIDOPH & BULGAR 1 TABLET. PO SCH ×3 (09:55→17:29)
[2016-08-31] MEDS: ASCORBIC ACID 500 MG TABLET PO SCH (09:56)
[2016-08-31] MEDS: LIPASE/PROTEAS/AMYLASE 5/17/27 CAPSULE.DR. PO SCH ×3 (10:01→17:23)
--- NOTE | 2016-08-31 10:26 | PDOC ---
PULMONARY PROGRESS NOTES Subjective feels better no soa today s/p second chest tube 08/30 Vitals Vital Signs Date Time Temp Pulse Resp B/P Pulse Ox O2 Delivery O2 Flow Rate FiO2 08/31/16 09:51 20 96 Nasal Cannula 2.0 08/31/16 07:00 96.4 71 93/54 96.4 Comments ros as above, other sys otherwise neg General: Alert, No acute distress HEENT: Other (nc at perrl, throat nose clear) Lungs: Other (decrease bs right base) Cardiovascular: S1, S2 Abdomen: Soft, Non-tender, Other (no mass) Neuro Exam: Alert, Oriented, No Focal Findings Extremities: No Edema Skin: Warm Labs Laboratory Tests Test 08/30/16 06:00 08/30/16 14:50 08/31/16 05:40 White Blood Count 39.4x10^3/uL (4.0-11.0) 30.6x10^3/uL (4.0-11.0) Red Blood Count 3.20x10^6/uL (3.50-5.40) 2.98x10^6/uL (3.50-5.40) Hemoglobin 8.9g/dL (12.0-15.5) 8.2g/dL (12.0-15.5) Hematocrit 27.1% (36.0-47.0) 25.4% (36.0-47.0) Mean Corpuscular Volume 85fL (79-100) 85fL (79-100) Mean Corpuscular Hemoglobin 28pg (25-35) 27pg (25-35) Mean Corpuscular Hemoglobin Concent 33g/dL (31-37) 32g/dL (31-37) Red Cell Distribution Width 14.8% (11.5-14.5) 14.7% (11.5-14.5) Platelet Count 468x10^3/uL (140-400) 488x10^3/uL (140-400) Neutrophils (%) (Auto) 92% (31-73) 89% (31-73) Lymphocytes (%) (Auto) 4% (24-48) 6% (24-48) Monocytes (%) (Auto) 4% (0-9) 4% (0-9) Eosinophils (%) (Auto) 1% (0-3) 1% (0-3) Basophils (%) (Auto) 0% (0-3) 0% (0-3) Neutrophils # (Auto) 36.2x10^3uL (1.8-7.7) 27.4x10^3uL (1.8-7.7) Lymphocytes # (Auto) 1.4x10^3/uL (1.0-4.8) 1.7x10^3/uL (1.0-4.8) Monocytes # (Auto) 1.4x10^3/uL (0.0-1.1) 1.2x10^3/uL (0.0-1.1) Eosinophils # (Auto) 0.2x10^3/uL (0.0-0.7) 0.3x10^3/uL (0.0-0.7) Basophils # (Auto) 0.2x10^3/uL (0.0-0.2) 0.1x10^3/uL (0.0-0.2) Segmented Neutrophils % 83% (35-66) Band Neutrophils % 6% (0-9) Lymphocytes % 4% (24-48) Monocytes % 1% (0-10) Eosinophils % 1% (0-5) Metamyelocytes % 5% (0-0) Platelet Estimate Increased (ADEQUATE) Sodium Level 135mmol/L (136-145) 134mmol/L (136-145) Potassium Level 3.8mmol/L (3.5-5.1) 4.0mmol/L (3.5-5.1) Chloride Level 103mmol/L (98-107) 101mmol/L (98-107) Carbon Dioxide Level 23mmol/L (21-32) 24mmol/L (21-32) Anion Gap 9 (6-14) 9 (6-14) Blood Urea Nitrogen 8mg/dL (7-20) 10mg/dL (7-20) Creatinine 0.8mg/dL (0.6-1.0) 1.0mg/dL (0.6-1.0) Estimated GFR (Cockcroft-Gault) 74.5 57.6 Glucose Level 80mg/dL (70-99) 96mg/dL (70-99) Calcium Level 7.9mg/dL (8.5-10.1) 8.0mg/dL (8.5-10.1) Body Fluid pH 7.1 Laboratory Tests Test 08/30/16 14:50 08/31/16 05:40 Body Fluid pH 7.1 White Blood Count 30.6x10^3/uL (4.0-11.0) Red Blood Count 2.98x10^6/uL (3.50-5.40) Hemoglobin 8.2g/dL (12.0-15.5) Hematocrit 25.4% (36.0-47.0) Mean Corpuscular Volume 85fL (79-100) Mean Corpuscular Hemoglobin 27pg (25-35) Mean Corpuscular Hemoglobin Concent 32g/dL (31-37) Red Cell Distribution Width 14.7% (11.5-14.5) Platelet Count 488x10^3/uL (140-400) Neutrophils (%) (Auto) 89% (31-73) Lymphocytes (%) (Auto) 6% (24-48) Monocytes (%) (Auto) 4% (0-9) Eosinophils (%) (Auto) 1% (0-3) Basophils (%) (Auto) 0% (0-3) Neutrophils # (Auto) 27.4x10^3uL (1.8-7.7) Lymphocytes # (Auto) 1.7x10^3/uL (1.0-4.8) Monocytes # (Auto) 1.2x10^3/uL (0.0-1.1) Eosinophils # (Auto) 0.3x10^3/uL (0.0-0.7) Basophils # (Auto) 0.1x10^3/uL (0.0-0.2) Sodium Level 134mmol/L (136-145) Potassium Level 4.0mmol/L (3.5-5.1) Chloride Level 101mmol/L (98-107) Carbon Dioxide Level 24mmol/L (21-32) Anion Gap 9 (6-14) Blood Urea Nitrogen 10mg/dL (7-20) Creatinine 1.0mg/dL (0.6-1.0) Estimated GFR (Cockcroft-Gault) 57.6 Glucose Level 96mg/dL (70-99) Calcium Level 8.0mg/dL (8.5-10.1) Medications Active Scripts Medications Dose Route/Sig Days Date Category Zyprexa (Olanzapine) 2.5 Mg Tablet 1 Tab PO QHS 01/15/16 Reported Tizanidine Hcl 4 Mg Tablet 4 Mg PO TID PRN 01/14/16 Reported Tramadol Hcl 50 Mg Tablet 50 Mg PO BID PRN 01/14/16 Reported Lialda (Mesalamine) 1.2 Gm Tablet.dr 4 Tab PO DAILY 01/14/16 Reported Comments cxr reviewed, s/p second chest tube no change in loculated effusion rt Impression . 1. Acute hypoxic respiratory failure, This is secondary to extensive multilobar community-acquired pneumonia/ multiloculated effusion, clinically empyema. 2. chronic obstructive pulmonary disease, could be severe. 3. Persistent severe leukocytosis This is probably related to underlying extensive pneumonia and sepsis./ BM aspiration 08/29 4. Severe protein-calorie malnutrition with an albumin level of 1.4. 5. Lactic acidosis present on admission on 08/21/2016 at [facility] related to sepsis from pneumonia. 6. Normal ejection fraction by echo with a pulmonary artery systolic pressure of 49. Suspect this is secondary to underlying chronic obstructive pulmonary disease. 7. smoker Plan . 1. cont antibiotic per ID 2. d/w patient that she would benefit from intra-pleural TPA. Will do it today and tomorrow Last option would be De-cortication if no improvement with TPA. holding lovenox 3. cont chest tube to suction to -30. ph, 6.9 c/w empyema, repeat 7.1 4. Bronchodilators. 5. Deep venous thrombosis prophylaxis on hold 6. Stress ulcer prophylaxis. 7. Continue BiPAP prn 8. 02 titration 9. Monitor white cell count. follow BP aspirate results 10. advised to quit smoking, 11. pain control HERBER PERALES MD Aug 31, 2016 10:26
[2016-08-31] MEDS ORDERED: ALTEPLASE 2MG VIAL 5 MG in IV STERILE WATER 50 ML IV ONE ×2 (10:30→10:45)
--- NOTE | 2016-08-31 10:50 | RAD ---
Portable chest, 08/31/2016: History: Follow-up pneumonia Comparison is made yesterday study. A right PICC remains in place extending into the superior vena cava. There are now 2 pigtail pleural drains in the right lower chest. Right-sided pleural thickening is radiographically unchanged. There is no evidence of pneumothorax. There are moderate persistent underlying patchy right lung infiltrates. There is minimal unchanged atelectasis/infiltrate in the left base. The heart size is normal. IMPRESSION: 1. A second right pleural drain has been placed since yesterday's study. 2. No other significant interval change.
[2016-08-31 11:00] VITALS: BP 99/53
[2016-08-31 11:23] LABS: BODY FLUID GLUCOSE <2 mg/dL (.)
--- NOTE | 2016-08-31 12:49 | PDOC4 ---
PROCEDURE Procedure TPA given via both chest tube HERBER PERALES MD Aug 31, 2016 12:49
--- NOTE | 2016-08-31 13:26 | PDOC ---
PROGRESS NOTES Chief Complaint Chief Complaint Acute hypoxic respiratory failure ASSESSMENT AND PLAN: 1. PNA: multilobar. on broad spectrum coverage (zosyn, linezolid) 2. Empyema: loculated, now double CT in place, TPA administered in both today 3. COPD exacerbation: resolving 4. Sepsis: resolved 5. Leukocytosis with severe left shift: s/p BM bx today by Dr Jamison. prob leukemoid rxn from infect (vs primary BM d/o). significantly improved today 6. HTN, tachycardia: BB never added - VS now low! monitor closely 5. UC: on mesalamine, pancreatic enzymes, macrobiotics 6. Depression: on zyprexa 7. Smoker: nicotine patch; 8. Migraine: imitrex PRN 9. chest pain: musculoskeletal w/ CT: increase frequency of pain meds to q4 PRN, add IV morphine 10. Prophylaxis: lovenox, PPI 11. Dispo: eval for [facility], although no immediate plans for transfer Vitals Vitals Vital Signs Date Time Temp Pulse Resp B/P Pulse Ox O2 Delivery O2 Flow Rate FiO2 08/31/16 11:00 98.1 79 19 99/53 98 Nasal Cannula 2.0 98.1 Physical Exam General: Alert, Oriented X3 Heart: Normal S1, Normal S2 Lungs: Crackles, Other (decrease bs right base) Abdomen: Normal bowel sounds Extremities: No clubbing, No cyanosis Labs LABS Laboratory Tests Test 08/30/16 14:50 08/31/16 05:40 Body Fluid pH 7.1 Body Fluid Glucose <2mg/dL (.) Body Fluid Total Protein 3.2g/dL (.) White Blood Count 30.6x10^3/uL (4.0-11.0) Red Blood Count 2.98x10^6/uL (3.50-5.40) Hemoglobin 8.2g/dL (12.0-15.5) Hematocrit 25.4% (36.0-47.0) Mean Corpuscular Volume 85fL (79-100) Mean Corpuscular Hemoglobin 27pg (25-35) Mean Corpuscular Hemoglobin Concent 32g/dL (31-37) Red Cell Distribution Width 14.7% (11.5-14.5) Platelet Count 488x10^3/uL (140-400) Neutrophils (%) (Auto) 89% (31-73) Lymphocytes (%) (Auto) 6% (24-48) Monocytes (%) (Auto) 4% (0-9) Eosinophils (%) (Auto) 1% (0-3) Basophils (%) (Auto) 0% (0-3) Neutrophils # (Auto) 27.4x10^3uL (1.8-7.7) Lymphocytes # (Auto) 1.7x10^3/uL (1.0-4.8) Monocytes # (Auto) 1.2x10^3/uL (0.0-1.1) Eosinophils # (Auto) 0.3x10^3/uL (0.0-0.7) Basophils # (Auto) 0.1x10^3/uL (0.0-0.2) Sodium Level 134mmol/L (136-145) Potassium Level 4.0mmol/L (3.5-5.1) Chloride Level 101mmol/L (98-107) Carbon Dioxide Level 24mmol/L (21-32) Anion Gap 9 (6-14) Blood Urea Nitrogen 10mg/dL (7-20) Creatinine 1.0mg/dL (0.6-1.0) Estimated GFR (Cockcroft-Gault) 57.6 Glucose Level 96mg/dL (70-99) Calcium Level 8.0mg/dL (8.5-10.1) Review of Systems Review of Systems worse pain in R chest after placement of 2nd CT, and today's tPA Comment Review of Relevant I have reviewed the following items randi (where applicable) has been applied. Labs Laboratory Tests Test 08/30/16 06:00 08/30/16 14:50 08/31/16 05:40 White Blood Count 39.4x10^3/uL (4.0-11.0) 30.6x10^3/uL (4.0-11.0) Red Blood Count 3.20x10^6/uL (3.50-5.40) 2.98x10^6/uL (3.50-5.40) Hemoglobin 8.9g/dL (12.0-15.5) 8.2g/dL (12.0-15.5) Hematocrit 27.1% (36.0-47.0) 25.4% (36.0-47.0) Mean Corpuscular Volume 85fL (79-100) 85fL (79-100) Mean Corpuscular Hemoglobin 28pg (25-35) 27pg (25-35) Mean Corpuscular Hemoglobin Concent 33g/dL (31-37) 32g/dL (31-37) Red Cell Distribution Width 14.8% (11.5-14.5) 14.7% (11.5-14.5) Platelet Count 468x10^3/uL (140-400) 488x10^3/uL (140-400) Neutrophils (%) (Auto) 92% (31-73) 89% (31-73) Lymphocytes (%) (Auto) 4% (24-48) 6% (24-48) Monocytes (%) (Auto) 4% (0-9) 4% (0-9) Eosinophils (%) (Auto) 1% (0-3) 1% (0-3) Basophils (%) (Auto) 0% (0-3) 0% (0-3) Neutrophils # (Auto) 36.2x10^3uL (1.8-7.7) 27.4x10^3uL (1.8-7.7) Lymphocytes # (Auto) 1.4x10^3/uL (1.0-4.8) 1.7x10^3/uL (1.0-4.8) Monocytes # (Auto) 1.4x10^3/uL (0.0-1.1) 1.2x10^3/uL (0.0-1.1) Eosinophils # (Auto) 0.2x10^3/uL (0.0-0.7) 0.3x10^3/uL (0.0-0.7) Basophils # (Auto) 0.2x10^3/uL (0.0-0.2) 0.1x10^3/uL (0.0-0.2) Segmented Neutrophils % 83% (35-66) Band Neutrophils % 6% (0-9) Lymphocytes % 4% (24-48) Monocytes % 1% (0-10) Eosinophils % 1% (0-5) Metamyelocytes % 5% (0-0) Platelet Estimate Increased (ADEQUATE) Sodium Level 135mmol/L (136-145) 134mmol/L (136-145) Potassium Level 3.8mmol/L (3.5-5.1) 4.0mmol/L (3.5-5.1) Chloride Level 103mmol/L (98-107) 101mmol/L (98-107) Carbon Dioxide Level 23mmol/L (21-32) 24mmol/L (21-32) Anion Gap 9 (6-14) 9 (6-14) Blood Urea Nitrogen 8mg/dL (7-20) 10mg/dL (7-20) Creatinine 0.8mg/dL (0.6-1.0) 1.0mg/dL (0.6-1.0) Estimated GFR (Cockcroft-Gault) 74.5 57.6 Glucose Level 80mg/dL (70-99) 96mg/dL (70-99) Calcium Level 7.9mg/dL (8.5-10.1) 8.0mg/dL (8.5-10.1) Body Fluid pH 7.1 Body Fluid Glucose <2mg/dL (.) Body Fluid Total Protein 3.2g/dL (.) Laboratory Tests Test 08/30/16 14:50 08/31/16 05:40 Body Fluid pH 7.1 Body Fluid Glucose <2mg/dL (.) Body Fluid Total Protein 3.2g/dL (.) White Blood Count 30.6x10^3/uL (4.0-11.0) Red Blood Count 2.98x10^6/uL (3.50-5.40) Hemoglobin 8.2g/dL (12.0-15.5) Hematocrit 25.4% (36.0-47.0) Mean Corpuscular Volume 85fL (79-100) Mean Corpuscular Hemoglobin 27pg (25-35) Mean Corpuscular Hemoglobin Concent 32g/dL (31-37) Red Cell Distribution Width 14.7% (11.5-14.5) Platelet Count 488x10^3/uL (140-400) Neutrophils (%) (Auto) 89% (31-73) Lymphocytes (%) (Auto) 6% (24-48) Monocytes (%) (Auto) 4% (0-9) Eosinophils (%) (Auto) 1% (0-3) Basophils (%) (Auto) 0% (0-3) Neutrophils # (Auto) 27.4x10^3uL (1.8-7.7) Lymphocytes # (Auto) 1.7x10^3/uL (1.0-4.8) Monocytes # (Auto) 1.2x10^3/uL (0.0-1.1) Eosinophils # (Auto) 0.3x10^3/uL (0.0-0.7) Basophils # (Auto) 0.1x10^3/uL (0.0-0.2) Sodium Level 134mmol/L (136-145) Potassium Level 4.0mmol/L (3.5-5.1) Chloride Level 101mmol/L (98-107) Carbon Dioxide Level 24mmol/L (21-32) Anion Gap 9 (6-14) Blood Urea Nitrogen 10mg/dL (7-20) Creatinine 1.0mg/dL (0.6-1.0) Estimated GFR (Cockcroft-Gault) 57.6 Glucose Level 96mg/dL (70-99) Calcium Level 8.0mg/dL (8.5-10.1) Microbiology 08/25/16 Anaerobic/Aerobic Culture - Preliminary, Resulted 08/25/16 Anaerobic Culture Result 1 (BRUCE) - Preliminary, Resulted 08/25/16 Aerobic Culture - Final, Resulted 08/25/16 Aerobic Culture Result 1 (BRUCE) - Final, Resulted Medications Current Medications Acetaminophen (Tylenol) 325 mg PRN Q6HRS PRN PO MILD PAIN / TEMP Last administered on 08/26/16 08:29; Start 08/25/16 at 12:45 Acetaminophen/ Hydrocodone Bitart (Lortab 5/325) 1 tab PRN Q6HRS PRN PO MODERATE PAIN Last administered on 08/27/16 02:06; Start 08/25/16 at 12:45; Stop 08/29/16 at 16:41; Status DC Hydralazine HCl (Apresoline) 10 mg PRN Q4HRS PRN IVP ELEVATED BP, SEE COMMENTS Last administered on 08/26/16 05:07; Start 08/25/16 at 12:45 Ondansetron HCl (Zofran) 4 mg PRN Q8HRS PRN IV NAUSEA/VOMITING Last administered on 08/25/16 15:42; Start 08/25/16 at 12:45; Stop 08/27/16 at 08:44 ; Status DC Albuterol Sulfate 2.5 mg 2.5 mg PRN Q4HRS PRN NEB SHORTNESS OF BREATH; Start at 12:45 Piperacillin Sod/ Tazobactam Sod 3.375 gm/Sodium Chloride 50 ml @ 100 mls/hr Q6HRS IV Last administered on 08/31/16 05:09; Start 08/25/16 at 13:00 Linezolid (Zyvox Premix) 300 ml @ 300 mls/hr Q12HR IV Last administered on 10:01; Start 08/25/16 at 14:00 Piperacillin Sod/ Tazobactam Sod 1 each 1 each PRN DAILY PRN MC SEE COMMENTS; Start 08/25/16 at 13:45; Stop 08/27/16 at 12:41; Status DC Levofloxacin/ Dextrose (LEVAQUIN 750mg PREMIX) 150 ml @ 100 mls/hr Q24H IV Last administered on 08/28/16 13:51; Start 08/25/16 at 14:00; Stop 08/28/16 at 14:37; Status DC Lidocaine/Sodium Bicarbonate (Buffered Lidocaine 1%) 20 ml STK-MED ONCE IJ ; Start 08/25/16 at 14:00; Stop 08/25/16 at 14:01; Status DC Lidocaine/Sodium Bicarbonate (Buffered Lidocaine 1%) 5 ml 1X ONCE IJ Last administered on 08/25/16 14:59; Start 08/25/16 at 15:00; Stop 08/25/16 at 15:01 ; Status DC Info (Do NOT chart on this placeholder) 1 each 1X ONCE MC ; Start 08/25/16 at 17:00; Stop 08/25/16 at 17:01; Status UNV Pneumococcal Polyvalent Vaccine (Do NOT chart on this placeholder) 1 each 1X ONCE MC ; Start 08/25/16 at 17:00; Stop 08/25/16 at 17:01; Status UNV Influenza Virus Vaccine Quadrival (Fluarix Quad [id number] Syringe) 0.5 ml ONCE ONCE VAX IM ; Start 08/26/16 at 09:00; Stop 08/26/16 at 09:01; Status DC Pneumococcal Polyvalent Vaccine (Pneumovax 23) 0.5 ml ONCE ONCE VAX IM ; Start 08/26/16 at 09:00; Stop 08/26/16 at 09:01; Status DC Enoxaparin Sodium (Lovenox 40mg Syringe) 40 mg Q24H SQ Last administered on 08:19; Start 08/26/16 at 09:00; Stop 08/29/16 at 11:45; Status DC Fentanyl Citrate (Fentanyl 2ml Vial) 25 mcg PRN Q4HRS PRN IV PAIN Last administered on 08/27/16 06:13; Start 08/26/16 at 08:30; Stop 08/29/16 at 15:07 ; Status DC Potassium Chloride (Klor-Con) 40 meq 1X ONCE PO Last administered on 11:24; Start 08/26/16 at 10:45; Stop 08/26/16 at 10:49; Status DC Mesalamine (Lialda) 4.8 gm DAILY06 PO Last administered on 08/31/16 05:26; Start 08/26/16 at 13:30 Olanzapine (Zyprexa) 2.5 mg HS PO Last administered on 08/30/16 21:44; Start 08/26/16 at 21:00 Sumatriptan Succinate (Imitrex) 100 mg PRN Q2HR PRN PO MIGRAINE HEADACHE; Start 08/26/16 at 13:30 Tizanidine HCl (Zanaflex) 4 mg QHS PO Last administered on 08/26/16 19:57; Start 08/26/16 at 21:00; Stop 08/26/16 at 21:00; Status DC Tramadol HCl (Ultram) 50 mg BID PO Last administered on 08/31/16 07:48; Start 08/26/16 at 14:00 Ascorbic Acid (Vitamin C) 1,000 mg DAILY PO Last administered on 08/31/16 09: 56; Start 08/27/16 at 09:00 Amylase/Lipase/ Protease (Zenpep 5,000) 5 cap TIDWMEALS PO Last administered on 08/31/16 10:01; Start 08/26/16 at 17:00 Niacin (Slo-Niacin) 500 mg QHS PO Last administered on 08/30/16 21:44; Start 08/26/16 at 21:00 Pantoprazole Sodium (Protonix) 40 mg DAILYAC PO Last administered on 08/31/16 07:47; Start 08/26/16 at 14:00 Non-Formulary Medication 1 tab DAILY PO ; Start 08/27/16 at 09:00; Status UNV Diphenoxylate HCl/ Atropine (Lomotil) 1 tab PRN QID PRN PO DIARRHEA Last administered on 08/31/16 09:53; Start 08/26/16 at 13:45 Tizanidine HCl (Zanaflex) 20 mg QHS PO Last administered on 08/30/16 21:44; Start 08/26/16 at 21:00 Acetaminophen/ Hydrocodone Bitart (Lortab 5/325) 2 tab PRN Q6HRS PRN PO SEVERE PAIN Last administered on 08/29/16 10:47; Start 08/27/16 at 04:45; Stop at 16:41; Status DC Ondansetron HCl (Zofran) 4 mg PRN Q6HRS PRN IV NAUSEA/VOMITING; Start 08/27/16 at 08:42 Vancomycin HCl 125 mg [id number] PO Last administered on 08/28/16 20:54; Start at 16:00; Stop 08/29/16 at 10:24; Status DC Lactobacillus Acidophilus 1 tab 1 tab TIDWMEALS PO Last administered on 09:55; Start 08/27/16 at 17:00 Sodium Chloride (Iv Sodium Chloride 0.9% 500ml Bag) 500 ml @ 500 mls/hr 1X ONCE IV Last administered on 08/28/16 00:52; Start 08/28/16 at 01:00; Stop at 01:59; Status DC Nicotine (Nicoderm Cq 21mg) 1 patch PRN DAILY PRN TD SMOKING CESSATION; Start 08/28/16 at 09:30 Cetirizine HCl (Zyrtec) 10 mg DAILY PO Last administered on 08/31/16 09:53; Start 08/28/16 at 10:00 Vitamin D (Vitamin D3) 1,000 unit DAILY PO Last administered on 08/31/16 09:55 ; Start 08/28/16 at 10:00 Iohexol (Omnipaque 300 Mg/ml) 75 ml 1X ONCE IV Last administered on 08/28/16 10:53; Start 08/28/16 at 10:15; Stop 08/28/16 at 10:16; Status DC Info (Do NOT chart on this entry -- for MONITORING) 1 each PRN DAILY PRN MC SEE COMMENTS; Start 08/28/16 at 10:00; Stop 08/30/16 at 09:59; Status DC Potassium Chloride (Klor-Con) 40 meq 1X ONCE PO Last administered on 13:52; Start 08/28/16 at 13:00; Stop 08/28/16 at 13:01; Status DC Lidocaine/Sodium Bicarbonate (Buffered Lidocaine 1%) 20 ml STK-MED ONCE IJ ; Start 08/29/16 at 08:36; Stop 08/29/16 at 08:37; Status DC Naloxone HCl (Narcan) 0.4 mg STK-MED ONCE .ROUTE ; Start 08/29/16 at 08:37; Stop 08/29/16 at 08:38; Status DC Flumazenil (Romazicon) 0.5 mg STK-MED ONCE IV ; Start 08/29/16 at 08:37; Stop at 08:38; Status DC Midazolam HCl (Versed) 5 mg STK-MED ONCE .ROUTE ; Start 08/29/16 at 08:37; Stop 08/29/16 at 08:38; Status DC Fentanyl Citrate (Fentanyl 5ml Vial) 250 mcg STK-MED ONCE .ROUTE ; Start at 08:37; Stop 08/29/16 at 08:38; Status DC Lidocaine/Sodium Bicarbonate (Buffered Lidocaine 1%) 6 ml 1X ONCE IJ Last administered on 08/29/16 09:09; Start 08/29/16 at 09:15; Stop 08/29/16 at 09:16 ; Status DC Midazolam HCl (Versed) 2 mg 1X ONCE IV Last administered on 08/29/16 09:08; Start 08/29/16 at 09:15; Stop 08/29/16 at 09:16; Status DC Fentanyl Citrate (Fentanyl 5ml Vial) 100 mcg 1X ONCE IV Last administered on 09:08; Start 08/29/16 at 09:15; Stop 08/29/16 at 09:16; Status DC Enoxaparin Sodium (Lovenox 40mg Syringe) 40 mg Q24H SQ Last administered on 16:01; Start 08/29/16 at 16:00; Stop 08/31/16 at 10:23; Status DC Acetaminophen/ Hydrocodone Bitart (Lortab 5/325) 1 tab PRN Q4HRS PRN PO MODERATE PAIN; Start 08/29/16 at 16:45 Acetaminophen/ Hydrocodone Bitart (Lortab 5/325) 2 tab PRN Q4HRS PRN PO SEVERE PAIN Last administered on 08/31/16 09:51; Start 08/29/16 at 16:45 Lidocaine/Sodium Bicarbonate (Buffered Lidocaine 1%) 20 ml STK-MED ONCE IJ ; Start 08/30/16 at 13:57; Stop 08/30/16 at 13:58; Status DC Midazolam HCl (Versed) 2 mg STK-MED ONCE .ROUTE ; Start 08/30/16 at 14:22; Stop 08/30/16 at 14:23; Status DC Fentanyl Citrate (Fentanyl 2ml Vial) 100 mcg STK-MED ONCE .ROUTE ; Start at 14:22; Stop 08/30/16 at 14:23; Status DC Lidocaine/Sodium Bicarbonate (Buffered Lidocaine 1%) 4 ml 1X ONCE IJ Last administered on 08/30/16 15:08; Start 08/30/16 at 14:50; Stop 08/30/16 at 15:04 ; Status DC Midazolam HCl (Versed) 1 mg 1X ONCE IV Last administered on 08/30/16 15:09; Start 08/30/16 at 14:45; Stop 08/30/16 at 15:04; Status DC Fentanyl Citrate (Fentanyl 2ml Vial) 50 mcg 1X ONCE IV Last administered on 15:09; Start 08/30/16 at 14:45; Stop 08/30/16 at 15:05; Status DC Metoprolol Tartrate 25 mg 25 mg BID PO Last administered on 08/30/16 21:44; Start 08/30/16 at 21:00 Alteplase, Recombinant 5 mg/ Sterile Water 50 ml @ 5 mls/hr 1X ONCE IV ; Start 08/31/16 at 10:30; Stop 08/31/16 at 20:29 Alteplase, Recombinant/ Sterile Water (Cathflo) 50 ml @ 5 mls/hr 1X ONCE IV ; Start 08/31/16 at 10:45; Stop 08/31/16 at 20:44 Active Scripts Active Reported [diphen/atropine] 2.5 Mg PO PRN QID PRN Prilosec Otc (Omeprazole Magnesium) 20 Mg Tablet.dr 1 Tab PO DAILY Lialda (Mesalamine) 1.2 Gm Tablet.dr 4 Tab PO DAILY06 Tizanidine Hcl 4 Mg Tablet 5 Tab PO QHS Olanzapine 2.5 Mg Tablet 2.5 Mg PO HS Zyrtec (Cetirizine Hcl) 10 Mg Capsule 10 Mg PO DAILY Dhea 50 Mg Tablet (Prasterone (Dhea)/Calcium Carb) 1 Each Tablet 1 Tab PO DAILY Niacin 500 Mg Tablet 500 Mg PO HS Vitamin D3 (Cholecalciferol (Vitamin D3)) 1,000 Unit Capsule 1,000 Unit PO DAILY Vitamin C (Ascorbic Acid) 1,000 Mg Tab.chew 1,000 Mg PO DAILY Imitrex (Sumatriptan Succinate) 100 Mg Tablet 100 Mg PO ONCE PRN Tramadol Hcl 50 Mg Tablet 4 Tab PO BID Zenpep 25,000 Units Capsule (Lipase/Protease/Amylase) 1 Each Capsule.dr 1 Each PO TIDAFTMEAL Vitals/I & O Vital Sign - Last 24 Hours 08/30/16 08/30/16 08/30/16 08/30/16 14:47 14:52 14:57 15:03 Pulse 107 111 110 112 Resp 32 29 25 36 Pulse Ox 94 98 98 94 O2 Delivery Nasal Cannula Nasal Cannula Nasal Cannula Nasal Cannula O2 Flow Rate 2.0 2.0 2.0 2.0 08/30/16 08/30/16 08/30/16 08/30/16 15:09 16:03 19:00 20:00 Temp 99.0 99.0 Pulse 107 Resp 36 20 20 B/P 141/78 Pulse Ox 2 94 96 O2 Delivery Nasal Cannula Nasal Cannula Nasal Cannula Nasal Cannula O2 Flow Rate 2.0 2.0 08/30/16 08/30/16 08/30/16 08/30/16 21:44 21:45 21:45 22:45 Pulse 107 Resp 18 18 18 B/P 141/78 Pulse Ox 96 96 97 O2 Delivery Nasal Cannula Nasal Cannula Nasal Cannula O2 Flow Rate 2.0 2.0 2.0 08/30/16 08/31/16 08/31/16 08/31/16 23:00 01:33 02:33 03:05 Temp 98.8 96.8 98.8 96.8 Pulse 97 84 Resp 20 18 18 18 B/P 127/72 89/51 Pulse Ox 97 97 98 O2 Delivery Nasal Cannula Nasal Cannula Nasal Cannula O2 Flow Rate 2.0 08/31/16 08/31/16 08/31/16 08/31/16 05:27 06:27 07:00 07:48 Temp 96.4 96.4 Pulse 71 Resp 18 19 20 B/P 93/54 Pulse Ox 98 98 97 98 O2 Delivery Nasal Cannula Nasal Cannula Nasal Cannula Nasal Cannula O2 Flow Rate 2.0 2.0 2.0 2.0 08/31/16 08/31/16 08/31/16 08/31/16 07:49 08:23 09:51 11:00 Temp 98.1 98.1 Pulse 79 Resp 20 19 B/P 99/53 Pulse Ox 96 96 98 O2 Delivery Nasal Cannula Nasal Cannula Nasal Cannula Nasal Cannula O2 Flow Rate 2.0 2.0 2.0 2.0 Intake and Output 08/30/16 08/30/16 08/31/16 15:00 23:00 07:00 Intake Total 250 ml 930 ml Output Total 2076 ml Balance -1826 ml 930 ml PRADEEP NARAYANAN MD Aug 31, 2016 13:26
[2016-08-31 15:00] VITALS: BP 101/56
[2016-08-31] MEDS ORDERED: ALTEPLASE 2MG VIAL 5 MG in IV STERILE WATER 50 ML INT CAT ONE ×4 (15:27)
[2016-08-31] MEDS ORDERED: MORPHINE SULFATE 2 MG/ML DISP.SYRIN. IV PRN (16:00)
--- NOTE | 2016-08-31 18:20 | OP ---
DATE OF SURGERY: PROCEDURE: Instillation of TPA through the chest tube. Informed consent was obtained from the patient and she agreed to proceed with the procedure along with her . TPA 5mg with 50 mL of sterile water was mixed and two syringes were used, each getting 5 mg TPA and both the chest tubes were instilled with TPA. The patient tolerated the procedure well. Chest tube will be clamped for 45 minutes and then leave it back to suction with unclamping. We will follow daily x-rays and monitor the output of the chest tube. HERBER PERALES MD DR: LEXIE/jacob JOB#: [id number] / [id number] LETHA
[2016-08-31 19:00] VITALS: BP 147/87
[2016-08-31] MEDS: tiZANidine 4 MG TABLET. PO SCH (20:15)
[2016-08-31] MEDS: FENTANYL PF 100 MCG/2 ML VIAL. IV PRN ×2 (20:15→22:28)
[2016-08-31] MEDS: NIACIN ER 500 MG TABLET.ER PO SCH (20:15)
[2016-08-31] MEDS: OLANZAPINE 2.5 MG TABLET PO SCH (20:15)
[2016-08-31] MEDS: OXYCODONE IR 5 MG TABLET. PO PRN (20:15)
[2016-08-31] MEDS ORDERED: MORPHINE SULFATE 2 MG/ML DISP.SYRIN. IV ONE (20:45)
[2016-08-31 23:47] VITALS: BP 86/56
[2016-09-01] MEDS: PIPERACILLIN/TAZOBACTAM 3.375 GM in IV NORMAL SALINE 50ML 50 ML IV SCH ×4 (00:12→16:57)
[2016-09-01] MEDS: FENTANYL PF 100 MCG/2 ML VIAL. IV PRN ×7 (00:21→20:40)
[2016-09-01 03:00] VITALS: BP 76/52
[2016-09-01] MEDS: OXYCODONE IR 5 MG TABLET. PO PRN (06:04)
[2016-09-01] MEDS: MESALAMINE 1.2 GM TABLET.DR PO SCH (06:05)
[2016-09-01] MEDS ORDERED: IV NORMAL SALINE 500ML BAG 500 ML IV ONE (06:30)
[2016-09-01 07:00] VITALS: BP_SYST 86; BP_SYST 88; BP_DIAS 49
[2016-09-01] MEDS ORDERED: ALTEPLASE 2 MG VIAL INT CAT ONE ×2 (07:00→13:00)
[2016-09-01 08:07] LABS: BASO # 0.1 x10^3/uL (0.0-0.2); BASO % 0 % (0-3); EOS % 1 % (0-3); HEMATOCRIT 26.3 % (36.0-47.0); HEMOGLOBIN 8.5 g/dL (12.0-15.5); LYMPH # 1.1 x10^3/uL (1.0-4.8); LYMPH % 4 % (24-48); MEAN CORPUSCULAR HEMOGLOBIN 27 pg (25-35); MEAN CORPUSCULAR HGB CONC 32 g/dL (31-37); MEAN CORPUSCULAR VOLUME 85 fL (79-100); MONO % 4 % (0-9); NEUT % 91 % (31-73); PLATELET COUNT 552 x10^3/uL (140-400); RED CELL DISTRIBUTION WIDTH 15.1 % (11.5-14.5); WHITE BLOOD COUNT 25.3 x10^3/uL (4.0-11.0)
[2016-09-01 08:40] LABS: CALCIUM 7.7 mg/dL (8.5-10.1); CREATININE 0.8 mg/dL (0.6-1.0); GFR 74.5; POTASSIUM 4.1 mmol/L (3.5-5.1)
--- NOTE | 2016-09-01 08:42 | RAD ---
Indication pneumonia. Assess for potential pneumothorax. A single view of the chest was obtained and is compared to an examination one day earlier. 2 Pleural-based catheters are noted in the right chest. Right PICC line is noted. Some volume loss compatible with a small amount of pleural fluid at the right lung base appears similar. Pulmonary opacity in the right midlung, compatible with a focus of atelectasis or pneumonia is again seen and also appears unchanged. The appearance of the chest is not changed appreciably relative to the previous exam. IMPRESSION: No significant change in the appearance of the chest
[2016-09-01] MEDS: CHOLECALCIFEROL (VITAMIN D3) 1,000 UNIT TABLET PO SCH (09:14)
[2016-09-01] MEDS: ASCORBIC ACID 500 MG TABLET PO SCH (09:20)
[2016-09-01] MEDS: PANTOPRAZOLE 40 MG TABLET. PO SCH (09:20)
[2016-09-01] MEDS: CETIRIZINE HCL 10 MG TABLET PO SCH (09:20)
[2016-09-01] MEDS: LIPASE/PROTEAS/AMYLASE 5/17/27 CAPSULE.DR. PO SCH ×3 (09:20→16:47)
[2016-09-01] MEDS: LACTOBACILLUS ACIDOPH & BULGAR 1 TABLET. PO SCH ×3 (09:20→16:47)
--- NOTE | 2016-09-01 09:34 | PDOC ---
Provider Note Provider Note DATE OF f/u: 09/01/2016 c/c: Leukocytosis with 1% blasts in a patient with pneumonia. HISTORY OF PRESENT ILLNESS: The patient is a 55-year-old female who presented to [facility] Emergency Room 08/21/2016 with complaints of worsening cough and pleuritic chest pain and dyspnea of one week duration. In the Emergency Room, she was noted to have tachycardia and elevated WBC count of 57,000 and lactic acid of 4.1. She was diagnosed with sepsis. She underwent a chest x-ray that revealed right lower lobe pneumonia with small pneumonic effusion. She underwent CT scan of the abdomen on 08/21/2016 that revealed right lower lobe pneumonia. She underwent a CT scan of the chest on 08/22/2016 that revealed multilobar pneumonia, small to moderate multiloculated right pleural effusion, which might indicate a parapneumonic effusion versus empyema. There is also evidence of mild emphysema. She was started on antibiotics, however, she has progressive dyspnea and hypoxia and hence she was transferred to [facility]. Infectious Disease and pulmonary consultation was obtained, she was started on antibiotics. She underwent right chest tube insertion on 08/25/2016, 130 mL of whitish cloudy right pleural fluid was sent to the lab for evaluation. Her WBC count on 08/26/2016 was 32.2 and on 08/27/2016, it was 54.0. In addition, there was evidence of 23% bands, 5% metamyelocytes, 8%, myelocytes, 1% blasts and hence I was asked to see the patient for further evaluation of leukocytosis. Her hemoglobin was 11.9 with a platelet count of 536. PAST MEDICAL HISTORY: COPD. REVIEW OF SYSTEMS: no n/v, has rt sided CP PHYSICAL EXAMINATION: GENERAL APPEARANCE: The patient is a 55-year-old female who is in no acute cardiorespiratory distress. CHEST: Bilaterally symmetrical, decreased air entry on the right side. HEART: S1, S2 normal. ABDOMEN: Soft, nontender. No hepatosplenomegaly. CENTRAL NERVOUS SYSTEM: No focal neurological deficits. LABORATORY DATA: On 08/27/2016, WBC 54, hemoglobin 11.9, MCV 83, platelet count 536, bands 23%, metamyelocytes 5%, myelocytes 8% and peripheral smear on 08/26/2016 revealed presence of blasts at 1%. IMPRESSION AND PLAN: 1. Severe leukocytosis with a WBC count of 54,000 on 08/27/2016 and hemoglobin of 11.9, platelet count 536,000. There was evidence of elevated bands at 23%, elevated metamyelocytes of 5%, myelocytes of 8%, and 1% blasts. With the presence of sepsis, pneumonia and empyema, this is most likely reactive process. However, in view of worsening myelocytes and the presence of blasts, I would pursue with the bone marrow aspiration and biopsy to make sure that she does not have a primary bone marrow disorder. WBC now 25.3, monitor cbc S/p bone marrow bx 08/29/16. I d/w pathologist, no increased blasts to suggest leukemia, final results pending. I will f/u 2. Pneumonia. Continue antibiotics. Appreciate ID consultation. 3. Empyema. Status post right thoracentesis and chest tube placement. 4. Sepsis with lactic acidosis. 5. Fever, improving. 6. Chronic obstructive pulmonary disease. SARAVANAN RAMIREZ MD Sep 01, 2016 09:34
--- NOTE | 2016-09-01 10:25 | PDOC ---
Infectious Disease Note Subjective Subjective Doing ok.. Still pain with new CT Site of Bone marrow nontender Still loose stool but better ROS ROS GEN: Denies fevers, chills, sweats HEENT: Denies blurred vision, sore throat CV: Denies chest pain RESP: Denies shortness of air, cough GI: Denies n/v/d NEURO: Denies confusion, dizziness MSK: Denies weakness, joint pain/swelling Vital Sign Vital Signs Vital Signs Date Time Temp Pulse Resp B/P Pulse Ox O2 Delivery O2 Flow Rate FiO2 09/01/16 07:04 95 Nasal Cannula 2.0 09/01/16 07:00 88/49 09/01/16 07:00 97.7 88 19 97.7 Physical Exam PHYSICAL EXAM GENERAL: Propped up in bed, NAD. Looks a little tired HEENT: OP/OC pink and dry NECK: Supple, no JVD, no LN LUNGS: Clear. Right CT times 2 HEART: S1S2, no gallop, no murmur ABD: Soft, NT, BS present : Brar EXT: No edema, no cyanosis [employer]ISTERED [employer]: Alert, oriented x 3, no focal neurologic deficit SKIN: No rash RUE-PICC. clean Labs Lab Laboratory Tests Test 09/01/16 07:30 White Blood Count 25.3x10^3/uL (4.0-11.0) Red Blood Count 3.10x10^6/uL (3.50-5.40) Hemoglobin 8.5g/dL (12.0-15.5) Hematocrit 26.3% (36.0-47.0) Mean Corpuscular Volume 85fL (79-100) Mean Corpuscular Hemoglobin 27pg (25-35) Mean Corpuscular Hemoglobin Concent 32g/dL (31-37) Red Cell Distribution Width 15.1% (11.5-14.5) Platelet Count 552x10^3/uL (140-400) Neutrophils (%) (Auto) 91% (31-73) Lymphocytes (%) (Auto) 4% (24-48) Monocytes (%) (Auto) 4% (0-9) Eosinophils (%) (Auto) 1% (0-3) Basophils (%) (Auto) 0% (0-3) Neutrophils # (Auto) 23.0x10^3uL (1.8-7.7) Lymphocytes # (Auto) 1.1x10^3/uL (1.0-4.8) Monocytes # (Auto) 1.0x10^3/uL (0.0-1.1) Eosinophils # (Auto) 0.2x10^3/uL (0.0-0.7) Basophils # (Auto) 0.1x10^3/uL (0.0-0.2) Sodium Level 135mmol/L (136-145) Potassium Level 4.1mmol/L (3.5-5.1) Chloride Level 102mmol/L (98-107) Carbon Dioxide Level 23mmol/L (21-32) Anion Gap 10 (6-14) Blood Urea Nitrogen 10mg/dL (7-20) Creatinine 0.8mg/dL (0.6-1.0) Estimated GFR (Cockcroft-Gault) 74.5 Glucose Level 76mg/dL (70-99) Calcium Level 7.7mg/dL (8.5-10.1) Objective Assessment Diarrhea - chronic problem at home - some better today. C-diff zee S/p Bone marrow 08/29. So far neg path but final pending per Dr Jamison note CAP Right empyema. s/p chest tube placement, 08/25 and 08/30 - pH 7.1 Leukocytosis, better Fever. better Sepsis with lactic acidosis Suspected COPD Hypoxia H/o C-diff Plan Plan of Care Continue, Zosyn and Zyvox Cont probiotics Monitor labs/cults supportive care F/u bone marrow NGHIA SONI MD Sep 01, 2016 10:25
[2016-09-01 11:00] VITALS: BP 102/54
[2016-09-01] MEDS ORDERED: IV NORMAL SALINE 1000ML BAG 1,000 ML IV ONE ×2 (11:45→23:45)
--- NOTE | 2016-09-01 11:55 | PDOC ---
PROGRESS NOTES Chief Complaint Chief Complaint Acute hypoxic respiratory failure ASSESSMENT AND PLAN: 1. PNA: multilobar. on broad spectrum coverage (zosyn, linezolid) 2. Empyema: loculated, now double CT in place, TPA administered in both yesterday. monitor w/ CXR 3. COPD exacerbation: resolving 4. Sepsis: resolved 5. Leukocytosis with severe left shift: s/p BM by Dr Jamison, prelim results making leukemia unlikely; prob leukemoid rxn from infect. continues to improve 6. HTN, tachycardia: resolved. 7. BP at low normal, prob influenced by IV narcotics. IVF boluses PRN 8. UC: on mesalamine, pancreatic enzymes, macrobiotics 9. Depression: on zyprexa 10. Smoker: nicotine patch; 11. Migraine: imitrex PRN 12. chest pain: musculoskeletal w/ CT: fentanyl, Oxy PO PRN 13. Prophylaxis: lovenox, PPI 14. Dispo: no acute plans for D/C with ongoing interventions w/ empyema. will prob need SNF rather than LTAC at D/C Vitals Vitals Vital Signs Date Time Temp Pulse Resp B/P Pulse Ox O2 Delivery O2 Flow Rate FiO2 09/01/16 08:00 Nasal Cannula 2.0 09/01/16 07:04 95 09/01/16 07:00 88/49 09/01/16 07:00 97.7 88 19 97.7 Physical Exam General: Alert, Oriented X3 Heart: Normal S1, Normal S2 Lungs: Crackles, Other (decrease bs right base) Abdomen: Normal bowel sounds Extremities: No clubbing, No cyanosis Labs LABS Laboratory Tests Test 09/01/16 07:30 White Blood Count 25.3x10^3/uL (4.0-11.0) Red Blood Count 3.10x10^6/uL (3.50-5.40) Hemoglobin 8.5g/dL (12.0-15.5) Hematocrit 26.3% (36.0-47.0) Mean Corpuscular Volume 85fL (79-100) Mean Corpuscular Hemoglobin 27pg (25-35) Mean Corpuscular Hemoglobin Concent 32g/dL (31-37) Red Cell Distribution Width 15.1% (11.5-14.5) Platelet Count 552x10^3/uL (140-400) Neutrophils (%) (Auto) 91% (31-73) Lymphocytes (%) (Auto) 4% (24-48) Monocytes (%) (Auto) 4% (0-9) Eosinophils (%) (Auto) 1% (0-3) Basophils (%) (Auto) 0% (0-3) Neutrophils # (Auto) 23.0x10^3uL (1.8-7.7) Lymphocytes # (Auto) 1.1x10^3/uL (1.0-4.8) Monocytes # (Auto) 1.0x10^3/uL (0.0-1.1) Eosinophils # (Auto) 0.2x10^3/uL (0.0-0.7) Basophils # (Auto) 0.1x10^3/uL (0.0-0.2) Sodium Level 135mmol/L (136-145) Potassium Level 4.1mmol/L (3.5-5.1) Chloride Level 102mmol/L (98-107) Carbon Dioxide Level 23mmol/L (21-32) Anion Gap 10 (6-14) Blood Urea Nitrogen 10mg/dL (7-20) Creatinine 0.8mg/dL (0.6-1.0) Estimated GFR (Cockcroft-Gault) 74.5 Glucose Level 76mg/dL (70-99) Calcium Level 7.7mg/dL (8.5-10.1) Review of Systems Review of Systems pain in chest, otherwise ok Comment Review of Relevant I have reviewed the following items randi (where applicable) has been applied. Labs Laboratory Tests Test 08/30/16 14:50 08/31/16 05:40 09/01/16 07:30 Body Fluid pH 7.1 Body Fluid Glucose <2mg/dL (.) Body Fluid Total Protein 3.2g/dL (.) White Blood Count 30.6x10^3/uL (4.0-11.0) 25.3x10^3/uL (4.0-11.0) Red Blood Count 2.98x10^6/uL (3.50-5.40) 3.10x10^6/uL (3.50-5.40) Hemoglobin 8.2g/dL (12.0-15.5) 8.5g/dL (12.0-15.5) Hematocrit 25.4% (36.0-47.0) 26.3% (36.0-47.0) Mean Corpuscular Volume 85fL (79-100) 85fL (79-100) Mean Corpuscular Hemoglobin 27pg (25-35) 27pg (25-35) Mean Corpuscular Hemoglobin Concent 32g/dL (31-37) 32g/dL (31-37) Red Cell Distribution Width 14.7% (11.5-14.5) 15.1% (11.5-14.5) Platelet Count 488x10^3/uL (140-400) 552x10^3/uL (140-400) Neutrophils (%) (Auto) 89% (31-73) 91% (31-73) Lymphocytes (%) (Auto) 6% (24-48) 4% (24-48) Monocytes (%) (Auto) 4% (0-9) 4% (0-9) Eosinophils (%) (Auto) 1% (0-3) 1% (0-3) Basophils (%) (Auto) 0% (0-3) 0% (0-3) Neutrophils # (Auto) 27.4x10^3uL (1.8-7.7) 23.0x10^3uL (1.8-7.7) Lymphocytes # (Auto) 1.7x10^3/uL (1.0-4.8) 1.1x10^3/uL (1.0-4.8) Monocytes # (Auto) 1.2x10^3/uL (0.0-1.1) 1.0x10^3/uL (0.0-1.1) Eosinophils # (Auto) 0.3x10^3/uL (0.0-0.7) 0.2x10^3/uL (0.0-0.7) Basophils # (Auto) 0.1x10^3/uL (0.0-0.2) 0.1x10^3/uL (0.0-0.2) Sodium Level 134mmol/L (136-145) 135mmol/L (136-145) Potassium Level 4.0mmol/L (3.5-5.1) 4.1mmol/L (3.5-5.1) Chloride Level 101mmol/L (98-107) 102mmol/L (98-107) Carbon Dioxide Level 24mmol/L (21-32) 23mmol/L (21-32) Anion Gap 9 (6-14) 10 (6-14) Blood Urea Nitrogen 10mg/dL (7-20) 10mg/dL (7-20) Creatinine 1.0mg/dL (0.6-1.0) 0.8mg/dL (0.6-1.0) Estimated GFR (Cockcroft-Gault) 57.6 74.5 Glucose Level 96mg/dL (70-99) 76mg/dL (70-99) Calcium Level 8.0mg/dL (8.5-10.1) 7.7mg/dL (8.5-10.1) Laboratory Tests Test 09/01/16 07:30 White Blood Count 25.3x10^3/uL (4.0-11.0) Red Blood Count 3.10x10^6/uL (3.50-5.40) Hemoglobin 8.5g/dL (12.0-15.5) Hematocrit 26.3% (36.0-47.0) Mean Corpuscular Volume 85fL (79-100) Mean Corpuscular Hemoglobin 27pg (25-35) Mean Corpuscular Hemoglobin Concent 32g/dL (31-37) Red Cell Distribution Width 15.1% (11.5-14.5) Platelet Count 552x10^3/uL (140-400) Neutrophils (%) (Auto) 91% (31-73) Lymphocytes (%) (Auto) 4% (24-48) Monocytes (%) (Auto) 4% (0-9) Eosinophils (%) (Auto) 1% (0-3) Basophils (%) (Auto) 0% (0-3) Neutrophils # (Auto) 23.0x10^3uL (1.8-7.7) Lymphocytes # (Auto) 1.1x10^3/uL (1.0-4.8) Monocytes # (Auto) 1.0x10^3/uL (0.0-1.1) Eosinophils # (Auto) 0.2x10^3/uL (0.0-0.7) Basophils # (Auto) 0.1x10^3/uL (0.0-0.2) Sodium Level 135mmol/L (136-145) Potassium Level 4.1mmol/L (3.5-5.1) Chloride Level 102mmol/L (98-107) Carbon Dioxide Level 23mmol/L (21-32) Anion Gap 10 (6-14) Blood Urea Nitrogen 10mg/dL (7-20) Creatinine 0.8mg/dL (0.6-1.0) Estimated GFR (Cockcroft-Gault) 74.5 Glucose Level 76mg/dL (70-99) Calcium Level 7.7mg/dL (8.5-10.1) Microbiology 08/25/16 Anaerobic/Aerobic Culture - Final, Resulted 08/25/16 Anaerobic Culture Result 1 (BRUCE) - Preliminary, Resulted 08/25/16 Aerobic Culture - Final, Resulted 08/25/16 Aerobic Culture Result 1 (BRUCE) - Final, Resulted Medications Current Medications Acetaminophen (Tylenol) 325 mg PRN Q6HRS PRN PO MILD PAIN / TEMP Last administered on 08/26/16 08:29; Start 08/25/16 at 12:45 Acetaminophen/ Hydrocodone Bitart (Lortab 5/325) 1 tab PRN Q6HRS PRN PO MODERATE PAIN Last administered on 08/27/16 02:06; Start 08/25/16 at 12:45; Stop 08/29/16 at 16:41; Status DC Hydralazine HCl (Apresoline) 10 mg PRN Q4HRS PRN IVP ELEVATED BP, SEE COMMENTS Last administered on 08/26/16 05:07; Start 08/25/16 at 12:45 Ondansetron HCl (Zofran) 4 mg PRN Q8HRS PRN IV NAUSEA/VOMITING Last administered on 08/25/16 15:42; Start 08/25/16 at 12:45; Stop 08/27/16 at 08:44 ; Status DC Albuterol Sulfate 2.5 mg 2.5 mg PRN Q4HRS PRN NEB SHORTNESS OF BREATH; Start at 12:45 Piperacillin Sod/ Tazobactam Sod 3.375 gm/Sodium Chloride 50 ml @ 100 mls/hr Q6HRS IV Last administered on 09/01/16 06:38; Start 08/25/16 at 13:00 Linezolid (Zyvox Premix) 300 ml @ 300 mls/hr Q12HR IV Last administered on 09:20; Start 08/25/16 at 14:00 Piperacillin Sod/ Tazobactam Sod 1 each 1 each PRN DAILY PRN MC SEE COMMENTS; Start 08/25/16 at 13:45; Stop 08/27/16 at 12:41; Status DC Levofloxacin/ Dextrose (LEVAQUIN 750mg PREMIX) 150 ml @ 100 mls/hr Q24H IV Last administered on 08/28/16 13:51; Start 08/25/16 at 14:00; Stop 08/28/16 at 14:37; Status DC Lidocaine/Sodium Bicarbonate (Buffered Lidocaine 1%) 20 ml STK-MED ONCE IJ ; Start 08/25/16 at 14:00; Stop 08/25/16 at 14:01; Status DC Lidocaine/Sodium Bicarbonate (Buffered Lidocaine 1%) 5 ml 1X ONCE IJ Last administered on 08/25/16 14:59; Start 08/25/16 at 15:00; Stop 08/25/16 at 15:01 ; Status DC Info (Do NOT chart on this placeholder) 1 each 1X ONCE MC ; Start 08/25/16 at 17:00; Stop 08/25/16 at 17:01; Status UNV Pneumococcal Polyvalent Vaccine (Do NOT chart on this placeholder) 1 each 1X ONCE MC ; Start 08/25/16 at 17:00; Stop 08/25/16 at 17:01; Status UNV Influenza Virus Vaccine Quadrival (Fluarix Quad [id number] Syringe) 0.5 ml ONCE ONCE VAX IM ; Start 08/26/16 at 09:00; Stop 08/26/16 at 09:01; Status DC Pneumococcal Polyvalent Vaccine (Pneumovax 23) 0.5 ml ONCE ONCE VAX IM ; Start 08/26/16 at 09:00; Stop 08/26/16 at 09:01; Status DC Enoxaparin Sodium (Lovenox 40mg Syringe) 40 mg Q24H SQ Last administered on 08:19; Start 08/26/16 at 09:00; Stop 08/29/16 at 11:45; Status DC Fentanyl Citrate (Fentanyl 2ml Vial) 25 mcg PRN Q4HRS PRN IV PAIN Last administered on 08/27/16 06:13; Start 08/26/16 at 08:30; Stop 08/29/16 at 15:07 ; Status DC Potassium Chloride (Klor-Con) 40 meq 1X ONCE PO Last administered on 11:24; Start 08/26/16 at 10:45; Stop 08/26/16 at 10:49; Status DC Mesalamine (Lialda) 4.8 gm DAILY06 PO Last administered on 09/01/16 06:05; Start 08/26/16 at 13:30 Olanzapine (Zyprexa) 2.5 mg HS PO Last administered on 08/31/16 20:15; Start 08/26/16 at 21:00 Sumatriptan Succinate (Imitrex) 100 mg PRN Q2HR PRN PO MIGRAINE HEADACHE; Start 08/26/16 at 13:30 Tizanidine HCl (Zanaflex) 4 mg QHS PO Last administered on 08/26/16 19:57; Start 08/26/16 at 21:00; Stop 08/26/16 at 21:00; Status DC Tramadol HCl (Ultram) 50 mg BID PO Last administered on 08/31/16 07:48; Start 08/26/16 at 14:00; Stop 08/31/16 at 15:54; Status DC Ascorbic Acid (Vitamin C) 1,000 mg DAILY PO Last administered on 09/01/16 09: 20; Start 08/27/16 at 09:00 Amylase/Lipase/ Protease (Zenpep 5,000) 5 cap TIDWMEALS PO Last administered on 09/01/16 09:20; Start 08/26/16 at 17:00 Niacin (Slo-Niacin) 500 mg QHS PO Last administered on 08/31/16 20:15; Start 08/26/16 at 21:00 Pantoprazole Sodium (Protonix) 40 mg DAILYAC PO Last administered on 09/01/16 09:20; Start 08/26/16 at 14:00 Non-Formulary Medication 1 tab DAILY PO ; Start 08/27/16 at 09:00; Status UNV Diphenoxylate HCl/ Atropine (Lomotil) 1 tab PRN QID PRN PO DIARRHEA Last administered on 08/31/16 09:53; Start 08/26/16 at 13:45 Tizanidine HCl (Zanaflex) 20 mg QHS PO Last administered on 08/31/16 20:15; Start 08/26/16 at 21:00 Acetaminophen/ Hydrocodone Bitart (Lortab 5/325) 2 tab PRN Q6HRS PRN PO SEVERE PAIN Last administered on 08/29/16 10:47; Start 08/27/16 at 04:45; Stop at 16:41; Status DC Ondansetron HCl (Zofran) 4 mg PRN Q6HRS PRN IV NAUSEA/VOMITING; Start 08/27/16 at 08:42 Vancomycin HCl 125 mg [id number] PO Last administered on 08/28/16 20:54; Start at 16:00; Stop 08/29/16 at 10:24; Status DC Lactobacillus Acidophilus 1 tab 1 tab TIDWMEALS PO Last administered on 09:20; Start 08/27/16 at 17:00 Sodium Chloride (Iv Sodium Chloride 0.9% 500ml Bag) 500 ml @ 500 mls/hr 1X ONCE IV Last administered on 08/28/16 00:52; Start 08/28/16 at 01:00; Stop at 01:59; Status DC Nicotine (Nicoderm Cq 21mg) 1 patch PRN DAILY PRN TD SMOKING CESSATION; Start 08/28/16 at 09:30 Cetirizine HCl (Zyrtec) 10 mg DAILY PO Last administered on 09/01/16 09:20; Start 08/28/16 at 10:00 Vitamin D (Vitamin D3) 1,000 unit DAILY PO Last administered on 09/01/16 09:14 ; Start 08/28/16 at 10:00 Iohexol (Omnipaque 300 Mg/ml) 75 ml 1X ONCE IV Last administered on 08/28/16 10:53; Start 08/28/16 at 10:15; Stop 08/28/16 at 10:16; Status DC Info (Do NOT chart on this entry -- for MONITORING) 1 each PRN DAILY PRN MC SEE COMMENTS; Start 08/28/16 at 10:00; Stop 08/30/16 at 09:59; Status DC Potassium Chloride (Klor-Con) 40 meq 1X ONCE PO Last administered on 13:52; Start 08/28/16 at 13:00; Stop 08/28/16 at 13:01; Status DC Lidocaine/Sodium Bicarbonate (Buffered Lidocaine 1%) 20 ml STK-MED ONCE IJ ; Start 08/29/16 at 08:36; Stop 08/29/16 at 08:37; Status DC Naloxone HCl (Narcan) 0.4 mg STK-MED ONCE .ROUTE ; Start 08/29/16 at 08:37; Stop 08/29/16 at 08:38; Status DC Flumazenil (Romazicon) 0.5 mg STK-MED ONCE IV ; Start 08/29/16 at 08:37; Stop at 08:38; Status DC Midazolam HCl (Versed) 5 mg STK-MED ONCE .ROUTE ; Start 08/29/16 at 08:37; Stop 08/29/16 at 08:38; Status DC Fentanyl Citrate (Fentanyl 5ml Vial) 250 mcg STK-MED ONCE .ROUTE ; Start at 08:37; Stop 08/29/16 at 08:38; Status DC Lidocaine/Sodium Bicarbonate (Buffered Lidocaine 1%) 6 ml 1X ONCE IJ Last administered on 08/29/16 09:09; Start 08/29/16 at 09:15; Stop 08/29/16 at 09:16 ; Status DC Midazolam HCl (Versed) 2 mg 1X ONCE IV Last administered on 08/29/16 09:08; Start 08/29/16 at 09:15; Stop 08/29/16 at 09:16; Status DC Fentanyl Citrate (Fentanyl 5ml Vial) 100 mcg 1X ONCE IV Last administered on 09:08; Start 08/29/16 at 09:15; Stop 08/29/16 at 09:16; Status DC Enoxaparin Sodium (Lovenox 40mg Syringe) 40 mg Q24H SQ Last administered on 16:01; Start 08/29/16 at 16:00; Stop 08/31/16 at 10:23; Status DC Acetaminophen/ Hydrocodone Bitart (Lortab 5/325) 1 tab PRN Q4HRS PRN PO MODERATE PAIN; Start 08/29/16 at 16:45; Stop 08/31/16 at 15:54; Status DC Acetaminophen/ Hydrocodone Bitart (Lortab 5/325) 2 tab PRN Q4HRS PRN PO SEVERE PAIN Last administered on 08/31/16t 15:14; Start 08/29/16 at 16:45; Stop at 15:54; Status DC Lidocaine/Sodium Bicarbonate (Buffered Lidocaine 1%) 20 ml STK-MED ONCE IJ ; Start 08/30/16 at 13:57; Stop 08/30/16 at 13:58; Status DC Midazolam HCl (Versed) 2 mg STK-MED ONCE .ROUTE ; Start 08/30/16 at 14:22; Stop 08/30/16 at 14:23; Status DC Fentanyl Citrate (Fentanyl 2ml Vial) 100 mcg STK-MED ONCE .ROUTE ; Start at 14:22; Stop 08/30/16 at 14:23; Status DC Lidocaine/Sodium Bicarbonate (Buffered Lidocaine 1%) 4 ml 1X ONCE IJ Last administered on 08/30/16 15:08; Start 08/30/16 at 14:50; Stop 08/30/16 at 15:04 ; Status DC Midazolam HCl (Versed) 1 mg 1X ONCE IV Last administered on 08/30/16 15:09; Start 08/30/16 at 14:45; Stop 08/30/16 at 15:04; Status DC Fentanyl Citrate (Fentanyl 2ml Vial) 50 mcg 1X ONCE IV Last administered on 15:09; Start 08/30/16 at 14:45; Stop 08/30/16 at 15:05; Status DC Metoprolol Tartrate 25 mg 25 mg BID PO Last administered on 08/30/16 21:44; Start 08/30/16 at 21:00; Stop 08/31/16 at 17:09; Status DC Alteplase, Recombinant 5 mg/ Sterile Water 50 ml @ 5 mls/hr 1X ONCE IV ; Start 08/31/16 at 10:30; Stop 08/31/16 at 15:27; Status DC Alteplase, Recombinant 5 mg/ Sterile Water 50 ml @ 5 mls/hr 1X ONCE IV ; Start 08/31/16 at 10:45; Stop 08/31/16 at 15:27; Status DC Alteplase, Recombinant 5 mg/ Sterile Water 50 ml @ 5 mls/hr 1X ONCE INT CAT Last administered on 08/31/16 12:40; Start 08/31/16 at 15:27; Stop 08/31/16 at 20:29; Status DC Alteplase, Recombinant/ Sterile Water (Cathflo) 50 ml @ 5 mls/hr 1X ONCE INT CAT Last administered on 08/31/16 12:40; Start 08/31/16 at 15:27; Stop at 20:44; Status DC Oxycodone HCl (Roxicodone) 5 mg PRN Q3HRS PRN PO PAIN Last administered on 09/01 06:04; Start 08/31/16 at 16:00 Morphine Sulfate 2 mg PRN Q6HRS PRN IV PAIN; Start 08/31/16 at 16:00; Stop at 18:07; Status DC Oxycodone HCl (Roxicodone) 10 mg PRN Q3HRS PRN PO PAIN; Start 08/31/16 at 16:00 Fentanyl Citrate (Fentanyl 2ml Vial) 50 mcg PRN Q2HR PRN IV PAIN SEV Last administered on 09/01/16 03:10; Start 08/31/16 at 18:15 Morphine Sulfate 2 mg 2 mg ONCE ONCE IV Last administered on 08/31/16 18:05; Start 08/31/16 at 20:45; Stop 08/31/16 at 20:46; Status DC Sodium Chloride (Iv Sodium Chloride 0.9% 500ml Bag) 500 ml @ 500 mls/hr 1X ONCE IV Last administered on 09/01/16 06:30; Start 09/01/16 at 06:30; Stop at 07:29; Status DC Alteplase, Recombinant (Cathflo) 2 mg 1X ONCE INT CAT Last administered on 06:35; Start 09/01/16 at 07:00; Stop 09/01/16 at 07:01; Status DC Albuterol Sulfate 2.5 mg 2.5 mg RTD [facility] ; Start 09/01/16 at 12:00 Sodium Chloride 1,000 ml @ 1,000 mls/hr 1X ONCE IV ; Start 09/01/16 at 11:45; Stop 09/01/16 at 12:44 Alteplase, Recombinant 5 mg/ Sterile Water 50 ml @ 5 mls/hr 1X ONCE INT CAT ; Start 09/01/16 at 12:30; Stop 09/01/16 at 22:29 Alteplase, Recombinant/ Sterile Water (Cathflo) 50 ml @ 5 mls/hr 1X ONCE INT CAT ; Start 09/01/16 at 12:30; Stop 09/01/16 at 22:29 Active Scripts Active Reported [diphen/atropine] 2.5 Mg PO PRN QID PRN Prilosec Otc (Omeprazole Magnesium) 20 Mg Tablet.dr 1 Tab PO DAILY Lialda (Mesalamine) 1.2 Gm Tablet.dr 4 Tab PO DAILY06 Tizanidine Hcl 4 Mg Tablet 5 Tab PO QHS Olanzapine 2.5 Mg Tablet 2.5 Mg PO HS Zyrtec (Cetirizine Hcl) 10 Mg Capsule 10 Mg PO DAILY Dhea 50 Mg Tablet (Prasterone (Dhea)/Calcium Carb) 1 Each Tablet 1 Tab PO DAILY Niacin 500 Mg Tablet 500 Mg PO HS Vitamin D3 (Cholecalciferol (Vitamin D3)) 1,000 Unit Capsule 1,000 Unit PO DAILY Vitamin C (Ascorbic Acid) 1,000 Mg Tab.chew 1,000 Mg PO DAILY Imitrex (Sumatriptan Succinate) 100 Mg Tablet 100 Mg PO ONCE PRN Tramadol Hcl 50 Mg Tablet 4 Tab PO BID Zenpep Dr 25,000 Units Capsule (Lipase/Protease/Amylase) 1 Each Capsule.dr 1 Each PO TIDAFTMEAL Vitals/I & O Vital Sign - Last 24 Hours 08/31/16 08/31/16 08/31/16 08/31/16 15:00 15:14 18:05 18:35 Temp 97.8 97.8 Pulse 76 Resp 22 B/P 101/56 Pulse Ox 99 98 95 95 O2 Delivery Nasal Cannula Nasal Cannula Nasal Cannula Nasal Cannula O2 Flow Rate 2.0 2.0 2.0 2.0 08/31/16 08/31/16 08/31/16 08/31/16 19:00 20:00 20:15 20:15 Temp 98.5 98.5 Pulse 117 Resp 22 B/P 147/87 Pulse Ox 95 95 95 O2 Delivery Nasal Cannula Nasal Cannula Nasal Cannula Nasal Cannula O2 Flow Rate 2.0 2.0 2.0 2.0 08/31/16 08/31/16 09/01/16 09/01/16 22:28 23:47 00:21 03:00 Temp 98.2 98.2 98.2 98.2 Pulse 93 76 Resp 22 22 B/P 86/56 76/52 Pulse Ox 95 95 95 95 O2 Delivery Nasal Cannula Nasal Cannula Nasal Cannula Nasal Cannula O2 Flow Rate 2.0 2.0 2.0 2.0 09/01/16 09/01/16 09/01/16 09/01/16 03:10 03:40 06:04 07:00 Temp 97.7 97.7 Pulse 88 Resp 19 B/P 86/49 Pulse Ox 95 95 95 97 O2 Delivery Nasal Cannula Nasal Cannula Nasal Cannula Nasal Cannula O2 Flow Rate 2.0 2.0 2.0 2.0 09/01/16 09/01/16 09/01/16 07:00 07:04 08:00 B/P 88/49 Pulse Ox 95 O2 Delivery Nasal Cannula Nasal Cannula O2 Flow Rate 2.0 2.0 Intake and Output 08/31/16 08/31/16 09/01/16 15:00 23:00 07:00 Intake Total 650 ml 1500 ml 350 ml Output Total 45 ml 2520 ml 1005 ml Balance 605 ml -1020 ml -655 ml PRADEEP NARAYANAN MD Sep 01, 2016 11:55
--- NOTE | 2016-09-01 12:13 | PDOC ---
PULMONARY PROGRESS NOTES Subjective feels better no soa s/p second chest tube 08/30 s/p TPA via both chest tubes 08/31 Vitals Vital Signs Date Time Temp Pulse Resp B/P Pulse Ox O2 Delivery O2 Flow Rate FiO2 09/01/16 08:00 Nasal Cannula 2.0 09/01/16 07:04 95 09/01/16 07:00 88/49 09/01/16 07:00 97.7 88 19 97.7 Comments ros as above, other sys otherwise neg General: Alert, No acute distress HEENT: Other (nc at perrl, throat nose clear) Lungs: Other (decrease bs right base) Cardiovascular: S1, S2 Abdomen: Soft, Non-tender, Other (no mass) Neuro Exam: Alert, Oriented, No Focal Findings Extremities: No Edema Skin: Warm Labs Laboratory Tests Test 08/30/16 14:50 08/31/16 05:40 09/01/16 07:30 Body Fluid pH 7.1 Body Fluid Glucose <2mg/dL (.) Body Fluid Total Protein 3.2g/dL (.) White Blood Count 30.6x10^3/uL (4.0-11.0) 25.3x10^3/uL (4.0-11.0) Red Blood Count 2.98x10^6/uL (3.50-5.40) 3.10x10^6/uL (3.50-5.40) Hemoglobin 8.2g/dL (12.0-15.5) 8.5g/dL (12.0-15.5) Hematocrit 25.4% (36.0-47.0) 26.3% (36.0-47.0) Mean Corpuscular Volume 85fL (79-100) 85fL (79-100) Mean Corpuscular Hemoglobin 27pg (25-35) 27pg (25-35) Mean Corpuscular Hemoglobin Concent 32g/dL (31-37) 32g/dL (31-37) Red Cell Distribution Width 14.7% (11.5-14.5) 15.1% (11.5-14.5) Platelet Count 488x10^3/uL (140-400) 552x10^3/uL (140-400) Neutrophils (%) (Auto) 89% (31-73) 91% (31-73) Lymphocytes (%) (Auto) 6% (24-48) 4% (24-48) Monocytes (%) (Auto) 4% (0-9) 4% (0-9) Eosinophils (%) (Auto) 1% (0-3) 1% (0-3) Basophils (%) (Auto) 0% (0-3) 0% (0-3) Neutrophils # (Auto) 27.4x10^3uL (1.8-7.7) 23.0x10^3uL (1.8-7.7) Lymphocytes # (Auto) 1.7x10^3/uL (1.0-4.8) 1.1x10^3/uL (1.0-4.8) Monocytes # (Auto) 1.2x10^3/uL (0.0-1.1) 1.0x10^3/uL (0.0-1.1) Eosinophils # (Auto) 0.3x10^3/uL (0.0-0.7) 0.2x10^3/uL (0.0-0.7) Basophils # (Auto) 0.1x10^3/uL (0.0-0.2) 0.1x10^3/uL (0.0-0.2) Sodium Level 134mmol/L (136-145) 135mmol/L (136-145) Potassium Level 4.0mmol/L (3.5-5.1) 4.1mmol/L (3.5-5.1) Chloride Level 101mmol/L (98-107) 102mmol/L (98-107) Carbon Dioxide Level 24mmol/L (21-32) 23mmol/L (21-32) Anion Gap 9 (6-14) 10 (6-14) Blood Urea Nitrogen 10mg/dL (7-20) 10mg/dL (7-20) Creatinine 1.0mg/dL (0.6-1.0) 0.8mg/dL (0.6-1.0) Estimated GFR (Cockcroft-Gault) 57.6 74.5 Glucose Level 96mg/dL (70-99) 76mg/dL (70-99) Calcium Level 8.0mg/dL (8.5-10.1) 7.7mg/dL (8.5-10.1) Laboratory Tests Test 09/01/16 07:30 White Blood Count 25.3x10^3/uL (4.0-11.0) Red Blood Count 3.10x10^6/uL (3.50-5.40) Hemoglobin 8.5g/dL (12.0-15.5) Hematocrit 26.3% (36.0-47.0) Mean Corpuscular Volume 85fL (79-100) Mean Corpuscular Hemoglobin 27pg (25-35) Mean Corpuscular Hemoglobin Concent 32g/dL (31-37) Red Cell Distribution Width 15.1% (11.5-14.5) Platelet Count 552x10^3/uL (140-400) Neutrophils (%) (Auto) 91% (31-73) Lymphocytes (%) (Auto) 4% (24-48) Monocytes (%) (Auto) 4% (0-9) Eosinophils (%) (Auto) 1% (0-3) Basophils (%) (Auto) 0% (0-3) Neutrophils # (Auto) 23.0x10^3uL (1.8-7.7) Lymphocytes # (Auto) 1.1x10^3/uL (1.0-4.8) Monocytes # (Auto) 1.0x10^3/uL (0.0-1.1) Eosinophils # (Auto) 0.2x10^3/uL (0.0-0.7) Basophils # (Auto) 0.1x10^3/uL (0.0-0.2) Sodium Level 135mmol/L (136-145) Potassium Level 4.1mmol/L (3.5-5.1) Chloride Level 102mmol/L (98-107) Carbon Dioxide Level 23mmol/L (21-32) Anion Gap 10 (6-14) Blood Urea Nitrogen 10mg/dL (7-20) Creatinine 0.8mg/dL (0.6-1.0) Estimated GFR (Cockcroft-Gault) 74.5 Glucose Level 76mg/dL (70-99) Calcium Level 7.7mg/dL (8.5-10.1) Medications Active Scripts Medications Dose Route/Sig Days Date Category Zyprexa (Olanzapine) 2.5 Mg Tablet 1 Tab PO QHS 01/15/16 Reported Tizanidine Hcl 4 Mg Tablet 4 Mg PO TID PRN 01/14/16 Reported Tramadol Hcl 50 Mg Tablet 50 Mg PO BID PRN 01/14/16 Reported Lialda (Mesalamine) 1.2 Gm Tablet. 4 Tab PO DAILY 01/14/16 Reported Comments cxr reviewed, s/p second chest tube no change in loculated effusion rt Impression . 1. Acute hypoxic respiratory failure, This is secondary to extensive multilobar community-acquired pneumonia/ multiloculated effusion, clinically empyema. 2. chronic obstructive pulmonary disease, could be severe. 3. Persistent severe leukocytosis This is probably related to underlying extensive pneumonia and sepsis./ BM aspiration 08/29 4. Severe protein-calorie malnutrition with an albumin level of 1.4. 5. Lactic acidosis present on admission on 08/21/2016 at [facility] related to sepsis from pneumonia. 6. Normal ejection fraction by echo with a pulmonary artery systolic pressure of 49. Suspect this is secondary to underlying chronic obstructive pulmonary disease. 7. smoker Plan . 1. cont antibiotic per ID 2. s/p intra-pleural TPA 08/31. cummulatively 590 cc came out from both chest tubes . Will do it again today and repeat ct tomorrow .Last option would be De- cortication if no improvement with TPA. holding lovenox 3. cont chest tube to suction to -30. ph, 6.9 c/w empyema, repeat 7.1 4. Bronchodilators. 5. Deep venous thrombosis prophylaxis on hold 6. Stress ulcer prophylaxis. 7. Continue BiPAP prn 8. 02 titration 9. Monitor white cell count. follow BP aspirate results 10. advised to quit smoking, 11. pain control HERBER PERALES MD Sep 01, 2016 12:13
[2016-09-01] MEDS ORDERED: ALTEPLASE 2MG VIAL 5 MG in IV STERILE WATER 50 ML INT CAT ONE ×4 (12:30)
[2016-09-01 15:00] VITALS: BP 136/76
[2016-09-01] MEDS: ALBUTEROL SULFATE 2.5 MG/3 ML NEBU. NEB SCH ×2 (16:07→19:23)
--- NOTE | 2016-09-01 16:57 | OP ---
DATE OF SURGERY: PROCEDURE: Introducing TPA through both chest tubes. TPA 5 mg was mixed with 50 mL of sterile water in each syringe. Both the chest tubes were introduced with TPA. Chest tube will be clamped for 45 minutes to an hour and then unclamped /back to suction. HERBER PERALES MD DR: LEXIE/jacob JOB#: [id number] / [id number]
--- NOTE | 2016-09-01 17:21 | PATHOLOGY ---
CYTOPATHOLOGY REPORT CLINICAL HISTORY: Right pleural effusion. SPECIMEN(S) RECEIVED: A.Pleural fluid, Right FINAL DIAGNOSIS: Right pleural fluid, ThinPrep and cell block: - No malignant cells identified. - Scattered predominantly acute inflammatory cells identified within a background of proteinaceous material. (JPM:mgliu; d/t: 09/01/16) PATHOLOGIST: Edi Reis M.D. REPORT ELECTRONICALLY SIGNED BY: Edi Reis M.D. DATE/TIME: 09/01/2016 17:15 GROSS PATHOLOGY: A. Pleural fluid, Right: The specimen is submitted unfixed, labeled "Miesha Gómez". Received by the Cytology Department is 20 mL of cloudy yellow fluid. One ThinPrep slide and a cell block were prepared. (clt 08.31.2016) FARM TRACTOR MECHANIC(S): LILLIAM Wells(ASCP) INITIAL CPT CODE(S): A; 36080, 05571 Professional services performed [place] [facility] [place] [address] Technical services performed by [facility] at [address] [place] [address], [address] [address]. PATIENT: MIESHA GÓMEZ /AGE: 2 1960 (Age: 55) SEX: F PATIENT #: [id number] ALT CASE #: SPECIMEN COLLECTION DATE: 08/30/2016 SPECIMEN RECEIVED DATE: 08/31/[address] [facility] [address] [place] [address], [address] [place] [address] PHONE: [phone] DIRECTOR: Wally Izquierdo M.D. * * * END OF REPORT * * *
[2016-09-01 19:00] VITALS: BP 147/79
[2016-09-01] MEDS: NIACIN ER 500 MG TABLET.ER PO SCH (20:40)
[2016-09-01] MEDS: tiZANidine 4 MG TABLET. PO SCH (20:40)
[2016-09-01] MEDS: OLANZAPINE 2.5 MG TABLET PO SCH (20:40)
[2016-09-01 23:00] VITALS: BP 79/43
[2016-09-02] MEDS: OXYCODONE IR 5 MG TABLET. PO PRN ×3 (01:53→21:24)
[2016-09-02 03:00] VITALS: BP 81/53
[2016-09-02] MEDS: MESALAMINE 1.2 GM TABLET.DR PO SCH (05:07)
[2016-09-02] MEDS: PIPERACILLIN/TAZOBACTAM 3.375 GM in IV NORMAL SALINE 50ML 50 ML IV SCH ×5 (05:07→18:38)
[2016-09-02 05:32] LABS: BASO # 0.1 x10^3/uL (0.0-0.2); BASO % 1 % (0-3); EOS % 1 % (0-3); HEMATOCRIT 24.2 % (36.0-47.0); LYMPH % 6 % (24-48); MEAN CORPUSCULAR HEMOGLOBIN 28 pg (25-35); MEAN CORPUSCULAR HGB CONC 33 g/dL (31-37); MEAN CORPUSCULAR VOLUME 85 fL (79-100); MONO % 4 % (0-9); NEUT % 89 % (31-73); PLATELET COUNT 497 x10^3/uL (140-400); RED BLOOD COUNT 2.86 x10^6/uL (3.50-5.40); RED CELL DISTRIBUTION WIDTH 14.9 % (11.5-14.5); WHITE BLOOD COUNT 18.3 x10^3/uL (4.0-11.0)
[2016-09-02 05:46] LABS: CALCIUM 7.5 mg/dL (8.5-10.1); CREATININE 0.8 mg/dL (0.6-1.0); GFR 74.5
[2016-09-02 07:00] VITALS: BP 110/61
[2016-09-02] MEDS: LIPASE/PROTEAS/AMYLASE 5/17/27 CAPSULE.DR. PO SCH ×3 (08:03→16:31)
[2016-09-02] MEDS: CHOLECALCIFEROL (VITAMIN D3) 1,000 UNIT TABLET PO SCH (08:03)
[2016-09-02] MEDS: PANTOPRAZOLE 40 MG TABLET. PO SCH (08:03)
[2016-09-02] MEDS: LACTOBACILLUS ACIDOPH & BULGAR 1 TABLET. PO SCH ×3 (08:03→16:31)
[2016-09-02] MEDS: ASCORBIC ACID 500 MG TABLET PO SCH (08:03)
[2016-09-02] MEDS: CETIRIZINE HCL 10 MG TABLET PO SCH (08:03)
--- NOTE | 2016-09-02 08:03 | PDOC ---
Infectious Disease Note Subjective Subjective Doing ok. Less pain with new CT. Site of Bone marrow nontender Loose stool better S/p TPA ROS ROS GEN: Denies fevers, chills, sweats HEENT: Denies blurred vision, sore throat CV: Denies chest pain RESP: Denies shortness of air, cough GI: Denies n/v/d NEURO: Denies confusion, dizziness MSK: Denies weakness, joint pain/swelling Vital Sign Vital Signs Vital Signs Date Time Temp Pulse Resp B/P Pulse Ox O2 Delivery O2 Flow Rate FiO2 09/02/16 06:06 94 Nasal Cannula 2.0 09/02/16 03:00 98.2 84 18 81/53 98.2 Physical Exam PHYSICAL EXAM GENERAL: Propped up in bed, NAD. Looks a little better HEENT: OP/OC pink and dry NECK: Supple, no JVD, no LN LUNGS: Clear. Right CT times 2 HEART: S1S2, no gallop, no murmur ABD: Soft, NT, BS present : Brar EXT: No edema, no cyanosis MANUFACTURING EXECUTIVE: Alert, oriented x 3, no focal neurologic deficit SKIN: No rash RUE-PICC. clean Labs Lab Laboratory Tests Test 09/02/16 05:20 White Blood Count 18.3x10^3/uL (4.0-11.0) Red Blood Count 2.86x10^6/uL (3.50-5.40) Hemoglobin 8.0g/dL (12.0-15.5) Hematocrit 24.2% (36.0-47.0) Mean Corpuscular Volume 85fL (79-100) Mean Corpuscular Hemoglobin 28pg (25-35) Mean Corpuscular Hemoglobin Concent 33g/dL (31-37) Red Cell Distribution Width 14.9% (11.5-14.5) Platelet Count 497x10^3/uL (140-400) Neutrophils (%) (Auto) 89% (31-73) Lymphocytes (%) (Auto) 6% (24-48) Monocytes (%) (Auto) 4% (0-9) Eosinophils (%) (Auto) 1% (0-3) Basophils (%) (Auto) 1% (0-3) Neutrophils # (Auto) 16.2x10^3uL (1.8-7.7) Lymphocytes # (Auto) 1.0x10^3/uL (1.0-4.8) Monocytes # (Auto) 0.8x10^3/uL (0.0-1.1) Eosinophils # (Auto) 0.2x10^3/uL (0.0-0.7) Basophils # (Auto) 0.1x10^3/uL (0.0-0.2) Sodium Level 135mmol/L (136-145) Potassium Level 4.0mmol/L (3.5-5.1) Chloride Level 103mmol/L (98-107) Carbon Dioxide Level 24mmol/L (21-32) Anion Gap 8 (6-14) Blood Urea Nitrogen 6mg/dL (7-20) Creatinine 0.8mg/dL (0.6-1.0) Estimated GFR (Cockcroft-Gault) 74.5 Glucose Level 75mg/dL (70-99) Calcium Level 7.5mg/dL (8.5-10.1) Objective Assessment Diarrhea - chronic problem at home - better. C-diff neg S/p Bone marrow 08/29. So far neg path but final pending per Dr Jamison note CAP Right empyema. s/p chest tube placement, 08/25 and 08/30 - pH 7.1. Cults neg Leukocytosis, better Fever. better Sepsis with lactic acidosis Suspected COPD Hypoxia H/o C-diff Plan Plan of Care Continue, Zosyn and Zyvox F/u CT scan today Cont probiotics Monitor labs/cults supportive care F/u bone marrow - final results NGHIA SONI MD Sep 02, 2016 08:03
[2016-09-02] MEDS: FENTANYL PF 100 MCG/2 ML VIAL. IV PRN ×6 (08:04→18:39)
[2016-09-02 08:27] LABS: BODY FLUID LDH 8342 IU/L (.)
[2016-09-02] MEDS: ALBUTEROL SULFATE 2.5 MG/3 ML NEBU. NEB SCH ×4 (08:37→19:21)
[2016-09-02 11:00] VITALS: BP 133/75
--- NOTE | 2016-09-02 12:09 | PDOC ---
Provider Note Provider Note DATE OF f/u: 09/02/2016 c/c: Leukocytosis with 1% blasts in a patient with pneumonia. HISTORY OF PRESENT ILLNESS: The patient is a 55-year-old female who presented to [facility] Emergency Room 08/21/2016 with complaints of worsening cough and pleuritic chest pain and dyspnea of one week duration. In the Emergency Room, she was noted to have tachycardia and elevated WBC count of 57,000 and lactic acid of 4.1. She was diagnosed with sepsis. She underwent a chest x-ray that revealed right lower lobe pneumonia with small pneumonic effusion. She underwent CT scan of the abdomen on 08/21/2016 that revealed right lower lobe pneumonia. She underwent a CT scan of the chest on 08/22/2016 that revealed multilobar pneumonia, small to moderate multiloculated right pleural effusion, which might indicate a parapneumonic effusion versus empyema. There is also evidence of mild emphysema. She was started on antibiotics, however, she has progressive dyspnea and hypoxia and hence she was transferred to [facility]. Infectious Disease and pulmonary consultation was obtained, she was started on antibiotics. She underwent right chest tube insertion on 08/25/2016, 130 mL of whitish cloudy right pleural fluid was sent to the lab for evaluation. Her WBC count on 08/26/2016 was 32.2 and on 08/27/2016, it was 54.0. In addition, there was evidence of 23% bands, 5% metamyelocytes, 8%, myelocytes, 1% blasts and hence I was asked to see the patient for further evaluation of leukocytosis. Her hemoglobin was 11.9 with a platelet count of 536. PAST MEDICAL HISTORY: COPD. REVIEW OF SYSTEMS: no n/v, has rt sided CP PHYSICAL EXAMINATION: GENERAL APPEARANCE: The patient is a 55-year-old female who is in no acute cardiorespiratory distress. CHEST: Bilaterally symmetrical, decreased air entry on the right side. HEART: S1, S2 normal. ABDOMEN: Soft, nontender. No hepatosplenomegaly. CENTRAL NERVOUS SYSTEM: No focal neurological deficits. LABORATORY DATA: On 08/27/2016, WBC 54, hemoglobin 11.9, MCV 83, platelet count 536, bands 23%, metamyelocytes 5%, myelocytes 8% and peripheral smear on 08/26/2016 revealed presence of blasts at 1%. IMPRESSION AND PLAN: 1. Severe leukocytosis with a WBC count of 54,000 on 08/27/2016 and hemoglobin of 11.9, platelet count 536,000. There was evidence of elevated bands at 23%, elevated metamyelocytes of 5%, myelocytes of 8%, and 1% blasts. With the presence of sepsis, pneumonia and empyema, this is most likely reactive process. However, in view of worsening myelocytes and the presence of blasts, I would pursue with the bone marrow aspiration and biopsy to make sure that she does not have a primary bone marrow disorder. WBC now 18.3, monitor cbc S/p bone marrow bx 08/29/16. I d/w pathologist, no increased blasts to suggest leukemia, final results pending. I will f/u 2. Pneumonia. Continue antibiotics. Appreciate ID consultation. 3. Empyema. Status post right thoracentesis and chest tube placement. 4. Sepsis with lactic acidosis. 5. Fever, improving. 6. Chronic obstructive pulmonary disease. SARAVANAN RAMIREZ MD Sep 02, 2016 12:09
--- NOTE | 2016-09-02 13:32 | PDOC ---
PULMONARY PROGRESS NOTES Subjective feels better no soa s/p second chest tube 08/30 s/p TPA via both chest tubes 08/31, 09/01 Vitals Vital Signs Date Time Temp Pulse Resp B/P Pulse Ox O2 Delivery O2 Flow Rate FiO2 09/02/16 12:28 Nasal Cannula 3.0 09/02/16 12:16 100 09/02/16 11:00 100.0 115 20 133/75 100.0 Comments ros as above, other sys otherwise neg General: Alert, No acute distress HEENT: Other (nc at perrl, throat nose clear) Lungs: Other (decrease bs right base) Cardiovascular: S1, S2 Abdomen: Soft, Non-tender, Other (no mass) Neuro Exam: Alert, Oriented, No Focal Findings Extremities: No Edema Skin: Warm Labs Laboratory Tests Test 09/01/16 07:30 09/02/16 05:20 White Blood Count 25.3x10^3/uL (4.0-11.0) 18.3x10^3/uL (4.0-11.0) Red Blood Count 3.10x10^6/uL (3.50-5.40) 2.86x10^6/uL (3.50-5.40) Hemoglobin 8.5g/dL (12.0-15.5) 8.0g/dL (12.0-15.5) Hematocrit 26.3% (36.0-47.0) 24.2% (36.0-47.0) Mean Corpuscular Volume 85fL (79-100) 85fL (79-100) Mean Corpuscular Hemoglobin 27pg (25-35) 28pg (25-35) Mean Corpuscular Hemoglobin Concent 32g/dL (31-37) 33g/dL (31-37) Red Cell Distribution Width 15.1% (11.5-14.5) 14.9% (11.5-14.5) Platelet Count 552x10^3/uL (140-400) 497x10^3/uL (140-400) Neutrophils (%) (Auto) 91% (31-73) 89% (31-73) Lymphocytes (%) (Auto) 4% (24-48) 6% (24-48) Monocytes (%) (Auto) 4% (0-9) 4% (0-9) Eosinophils (%) (Auto) 1% (0-3) 1% (0-3) Basophils (%) (Auto) 0% (0-3) 1% (0-3) Neutrophils # (Auto) 23.0x10^3uL (1.8-7.7) 16.2x10^3uL (1.8-7.7) Lymphocytes # (Auto) 1.1x10^3/uL (1.0-4.8) 1.0x10^3/uL (1.0-4.8) Monocytes # (Auto) 1.0x10^3/uL (0.0-1.1) 0.8x10^3/uL (0.0-1.1) Eosinophils # (Auto) 0.2x10^3/uL (0.0-0.7) 0.2x10^3/uL (0.0-0.7) Basophils # (Auto) 0.1x10^3/uL (0.0-0.2) 0.1x10^3/uL (0.0-0.2) Sodium Level 135mmol/L (136-145) 135mmol/L (136-145) Potassium Level 4.1mmol/L (3.5-5.1) 4.0mmol/L (3.5-5.1) Chloride Level 102mmol/L (98-107) 103mmol/L (98-107) Carbon Dioxide Level 23mmol/L (21-32) 24mmol/L (21-32) Anion Gap 10 (6-14) 8 (6-14) Blood Urea Nitrogen 10mg/dL (7-20) 6mg/dL (7-20) Creatinine 0.8mg/dL (0.6-1.0) 0.8mg/dL (0.6-1.0) Estimated GFR (Cockcroft-Gault) 74.5 74.5 Glucose Level 76mg/dL (70-99) 75mg/dL (70-99) Calcium Level 7.7mg/dL (8.5-10.1) 7.5mg/dL (8.5-10.1) Laboratory Tests Test 09/02/16 05:20 White Blood Count 18.3x10^3/uL (4.0-11.0) Red Blood Count 2.86x10^6/uL (3.50-5.40) Hemoglobin 8.0g/dL (12.0-15.5) Hematocrit 24.2% (36.0-47.0) Mean Corpuscular Volume 85fL (79-100) Mean Corpuscular Hemoglobin 28pg (25-35) Mean Corpuscular Hemoglobin Concent 33g/dL (31-37) Red Cell Distribution Width 14.9% (11.5-14.5) Platelet Count 497x10^3/uL (140-400) Neutrophils (%) (Auto) 89% (31-73) Lymphocytes (%) (Auto) 6% (24-48) Monocytes (%) (Auto) 4% (0-9) Eosinophils (%) (Auto) 1% (0-3) Basophils (%) (Auto) 1% (0-3) Neutrophils # (Auto) 16.2x10^3uL (1.8-7.7) Lymphocytes # (Auto) 1.0x10^3/uL (1.0-4.8) Monocytes # (Auto) 0.8x10^3/uL (0.0-1.1) Eosinophils # (Auto) 0.2x10^3/uL (0.0-0.7) Basophils # (Auto) 0.1x10^3/uL (0.0-0.2) Sodium Level 135mmol/L (136-145) Potassium Level 4.0mmol/L (3.5-5.1) Chloride Level 103mmol/L (98-107) Carbon Dioxide Level 24mmol/L (21-32) Anion Gap 8 (6-14) Blood Urea Nitrogen 6mg/dL (7-20) Creatinine 0.8mg/dL (0.6-1.0) Estimated GFR (Cockcroft-Gault) 74.5 Glucose Level 75mg/dL (70-99) Calcium Level 7.5mg/dL (8.5-10.1) Medications Active Scripts Medications Dose Route/Sig Days Date Category Zyprexa (Olanzapine) 2.5 Mg Tablet 1 Tab PO QHS 01/15/16 Reported Tizanidine Hcl 4 Mg Tablet 4 Mg PO TID PRN 01/14/16 Reported Tramadol Hcl 50 Mg Tablet 50 Mg PO BID PRN 01/14/16 Reported Lialda (Mesalamine) 1.2 Gm Tablet. 4 Tab PO DAILY 01/14/16 Reported Comments cxr reviewed, s/p second chest tube no change in loculated effusion rt Impression . 1. Acute hypoxic respiratory failure, This is secondary to extensive multilobar community-acquired pneumonia/ multiloculated effusion, clinically empyema. 2. chronic obstructive pulmonary disease, could be severe. 3. Persistent severe leukocytosis This is probably related to underlying extensive pneumonia and sepsis./ BM aspiration 08/29 , No leukemia 4. Severe protein-calorie malnutrition with an albumin level of 1.4. 5. Lactic acidosis present on admission on 08/21/2016 at [facility] related to sepsis from pneumonia. 6. Normal ejection fraction by echo with a pulmonary artery systolic pressure of 49. Suspect this is secondary to underlying chronic obstructive pulmonary disease. 7. smoker Plan . 1. cont antibiotic per ID 2. s/p intra-pleural TPA 08/31, 09/01 another 350 cc came out from one of chest tube . ct chest reviewed. still one moderate loculated pocket with no improvement. consult thoracic surgery for decortication 3. cont chest tube to suction to -30. ph, 6.9 c/w empyema, repeat 7.1 4. Bronchodilators. 5. Deep venous thrombosis prophylaxis on hold 6. Stress ulcer prophylaxis. 7. Continue BiPAP prn 8. 02 titration 9. Monitor white cell count. follow BP aspirate results 10. advised to quit smoking, 11. pain control d/w HERBER PERALES MD Sep 02, 2016 13:32
[2016-09-02 15:00] VITALS: BP 146/76
--- NOTE | 2016-09-02 15:05 | PATHOLOGY ---
PATHOLOGY REPORT * * * * * * * * FINAL DIAGNOSIS: Peripheral smear: - Moderate neutrophilic leukocytosis with neutrophilic left shift and toxic changes. - Normocytic normochromic anemia, mild to moderate. - Thrombocytosis, mild. Bone marrow, aspirate smears, clot section, and core biopsy: - Moderately hypercellular marrow showing neutrophilic granulocytic hyperplasia, mild megakaryocytic hyperplasia, and decreased erythropoiesis with adequate reticuloendothelial iron stores. See comment. COMMENT: The peripheral smear shows a moderate neutrophilic leukocytosis with neutrophilic left shift and toxic changes, mild to moderate normocytic normochromic anemia, and mild thrombocytosis. The bone marrow is hypercellular and shows neutrophilic granulocytic hyperplasia, decreased erythropoiesis, megakaryocytic hyperplasia, and no significant dyspoiesis. There is no significant neutrophilic left shift with myelocyte bulge. There is no absolute basophilic or eosinophilia. There is no increase of blasts. It is my understanding that the patient has a clinical diagnosis of sepsis. The findings therefore appear to be most compatible with a reactive neutrophilic leukocytosis and thrombocytosis. Will need to correlate with cytogenetic and BCR-ABL studies. (JPM:all; d/t: 09/01/2016) Special stain performed: iron stain (A1, aspirate smear) REPORT ELECTRONICALLY SIGNED BY: Edi Reis M.D. DATE/TIME: 09/02/2016 15:04 * * * * * * * * MICROSCOPIC DESCRIPTION: Laboratory Data: The CBC results are dated 08/29/16. The WBC count is 48.1 K/CMM, and the automated WBC differential reveals 93% neutrophils, 3% lymphs, 3% monos, and 1% eos. The RBC count is 3.40 M/CMM, Hgb 9.5 G/DL, Hct 28.9%, MCH 85 FL, MCH 28 PG, MCHC 33 G/DL, and the RDW is 14.8%. The platelet count is 442 K/CMM. Peripheral Smear: The peripheral smear is reviewed. The WBC count is moderately increased. There is an absolute neutrophilia. There is a predominance of segmented and band neutrophils, with small populations of lymphocytes and monocytes noted. There is a neutrophilic left shift with presence of several metamyelocytes and myelocytes. There are no circulating blasts. There is no leukoerythroblastic reaction. Neutrophils do show toxic granulation. Red blood cells predominantly appear normochromic and normocytic. A few hypochromic red blood cells are noted. Red blood cells show no significant anisopoikilocytosis. Platelets are mildly increased and appear normal in morphology. An occasional large platelet is noted. Aspirate Smears and Touch Imprints: Two Robles's-stained and one iron-stained aspirate smears, and one Robles's stained biopsy touch imprint are examined. The smears contain multiple marrow particles which appear cellular for age. There is a granulocytic hyperplasia. The M/E ratio is on the order of 8-10:1. Erythroid maturation appears normoblastic. There are no megaloblastic or overt dysplastic changes. As mentioned, there is a neutrophilic granulocytic hyperplasia. There are areas showing a modest left shift of granulopoiesis. There is no significant neutrophilic left shift with myelocyte bulge. Segmented and band neutrophils are readily demonstrated. There is no increase of blasts. Megakaryocytes appear mildly increased and are focally clustered. The megakaryocytes are of variable ploidy. There are scattered small platelet clumps. There are admixed small mature appearing plasma cells. Plasma cells overall comprise less than 5% of nucleated marrow cells. There is no increase of lymphocytes. There are no cells foreign to the marrow. The touch imprint shows similar findings. The iron stain of the aspirate smear contains only a single marrow particle which does disclose the presence of stainable iron. No ringed sideroblasts are identified. Bone Marrow Biopsy and Clot Sections: Sections of the bone marrow biopsy reveal a segment of bone marrow which ranges between 60% and 80% cellular. The clot section contains several marrow particles which are on the order of 70-80% cellular. There is a granulocytic hyperplasia. Granulocytes are present in varying stages of maturation. Segmented and band neutrophils are readily demonstrated. There is no significant neutrophilic left shift with myelocytes bulge. There is no increase of blasts. There are scattered admixed erythroid precursors. Megakaryocytes are increased and are focally clustered. The megakaryocytes are of variable ploidy. There are a few admixed eosinophils with no apparent increase of eosinophils noted. There are no abnormal lymphoid aggregates, granulomas, or cells foreign to the marrow. The iron stain of the clot section shows adequate reticuloendothelial iron stores. No ringed sideroblasts are identified. Special Studies: Bone marrow submitted for flow cytometry has a viability of 99.8%. Granulocytes comprise 94.9% of total cells and show phenotypic evidence of maturation with decreased CD10 expression and aberrant CD56 expression by a subset. Monocytes comprise 2.5% of total cells and show phenotypic evidence of maturation. CD45 dim, CD34 positive cells comprise 0.2% of total cells. Lymphocytes comprise 2.1% of total cells. T-cells comprise 69.9% of lymphoid cells and show a CD4/CD8 ratio of about 6.1. NK-cells comprise 8.1% of lymphoid cells. Mature B-cells comprise 18.0% of lymphoid cells and are polyclonal with a kappa:lambda ratio of 1.6. Plasma cells comprise 0.2% of total cells and show unremarkable surface marker expression. GROSS PATHOLOGY: A. Received in formalin labeled "Miesha Gómez and BM asp," is blood coagulum, measuring 0.8 x 0.5 x 0.2 cm in aggregate dimensions. The specimen is submitted entirely in cassette A1. B. Received in formalin labeled "Miesha Gómez" is a single needle core of bah bone, measuring 1.8 cm in length and 0.2 cm in diameter. The specimen is submitted entirely in cassette B1, following decalcification. (TTL; 08/29/2016) INITIAL CPT CODE(S): 75463, 07580, 18333(2), 91839, 77705(2) Professional services performed [place] [facility] [place] [address] Technical services performed by [facility] at [address] [place] [address], [address] [address]. SPECIMEN(S) RECEIVED: A.Bone marrow, clot B.Bone marrow, biopsy C.Bone marrow, aspirate smears D.Peripheral smear CLINICAL HISTORY: Leukocytosis PATIENT: MIESHA GÓMEZ /AGE: 2 1960 (Age: 55) PATIENT #: [id number] ALT CASE #: SPECIMEN COLLECTION DATE: 08/29/2016 SPECIMEN RECEIVED DATE: 08/29/2016 [facility] [place] [address] - PHONE: [phone] * * * END OF REPORT * * *
--- NOTE | 2016-09-02 15:20 | RAD ---
Chest CT without contrast Clinical indications: Empyema. Follow-up after pleural catheter placement. Technique: Noncontrast helical CT scanning of the chest was performed. Multiplanar 2-D reconstructions were generated. PQRS Compliance Statement: One or more of the following individualized dose reduction techniques were utilized for this examination: 1. Automated exposure control 2. Adjustment of the mA and/or kV according to patient size 3. Use of iterative reconstruction technique Comparison: Chest CT study dated August 28, 2016. Findings: Again seen are 2 pleural space drainage catheters one located anteriorly and laterally within the right lung base and the other one located posteriorly and medially within the right lung base. The pleural fluid collection posteriorly has decreased significantly in size. Small residual fluid collection is still evident. There is no significant residual fluid collection around the more anterior pleural drainage catheter. Improved aeration of the right lower lobe with residual nodular atelectasis or infiltrates is seen. There is a loculated pleural fluid collection posteriorly within the right mid chest which is moderate in size and unchanged from the previous study. Therefore, this pleural fluid collection does not appear to communicate with the rest of the pleural space. There is persistent compressive atelectasis of the adjacent posterior right lung. There is persistent nodular infiltrate within the medial segment and to a lesser extent the lateral segment of the right middle lobe which is unchanged. No pneumothorax is seen. No significant pleural effusion is seen on the left side. Persistent nodular infiltrate is seen within the posterior basal segment and anterior basal segment of the left lower lobe which is unchanged. Persistent small ill-defined infiltrate is seen within the posterior segment of the left upper lobe adjacent to the major fissure which is unchanged. The proximal bronchial tree remains patent. No pericardial effusion is seen. Heart size is normal. The caliber of the thoracic aorta is unchanged. Reactive mediastinal lymphadenopathy is unchanged. The anju is difficult to evaluate given the lack of contrast. IMPRESSION: Drainage of pleural fluid from the inferior aspect of the right pleural space. However, there is still a significant loculated posterior pleural fluid collection within the right mid chest. Improved aeration of the right lung base. Persistent bilateral lung infiltrates are seen.
--- NOTE | 2016-09-02 16:41 | PDOC ---
PROGRESS NOTES Chief Complaint Chief Complaint Acute hypoxic respiratory failure ASSESSMENT AND PLAN: 1. PNA: multilobar. on broad spectrum coverage (zosyn, linezolid) 2. Empyema: loculated, now double CT in place, TPA administered in both . unfortunately, 3rd fluid pocket present. consult to CT surg for decortication 3. COPD exacerbation: resolving 4. Sepsis: resolved 5. Leukocytosis with severe left shift: continues to improve. leukemoid rxn from infect, confirmed by BM bx obtained 08/29. 6. HTN, tachycardia: recurrent, after several days of soft Bp and low HR. tolerating tachycardia for now. restart BB if persistent. 7. BP at low normal, prob influenced by IV narcotics. IVF boluses PRN 8. UC: on mesalamine, pancreatic enzymes, macrobiotics 9. Depression: on zyprexa 10. Smoker: nicotine patch 11. Migraine: imitrex PRN 12. chest pain: musculoskeletal w/ CT: fentanyl, Oxy PO PRN 13. Prophylaxis: lovenox, PPI 14. Dispo: no acute plans for D/C with ongoing interventions w/ empyema. will prob need SNF rather than LTAC at D/C Vitals Vitals Vital Signs Date Time Temp Pulse Resp B/P Pulse Ox O2 Delivery O2 Flow Rate FiO2 09/02/16 16:31 Nasal Cannula 3.0 09/02/16 16:10 96 09/02/16 15:00 98.8 130 22 146/76 98.8 Physical Exam General: Alert, Oriented X3 Heart: Normal S1, Normal S2 Lungs: Other (decrease bs right, crackles) Abdomen: Normal bowel sounds Extremities: No clubbing, No cyanosis Labs LABS Laboratory Tests Test 09/02/16 05:20 White Blood Count 18.3x10^3/uL (4.0-11.0) Red Blood Count 2.86x10^6/uL (3.50-5.40) Hemoglobin 8.0g/dL (12.0-15.5) Hematocrit 24.2% (36.0-47.0) Mean Corpuscular Volume 85fL (79-100) Mean Corpuscular Hemoglobin 28pg (25-35) Mean Corpuscular Hemoglobin Concent 33g/dL (31-37) Red Cell Distribution Width 14.9% (11.5-14.5) Platelet Count 497x10^3/uL (140-400) Neutrophils (%) (Auto) 89% (31-73) Lymphocytes (%) (Auto) 6% (24-48) Monocytes (%) (Auto) 4% (0-9) Eosinophils (%) (Auto) 1% (0-3) Basophils (%) (Auto) 1% (0-3) Neutrophils # (Auto) 16.2x10^3uL (1.8-7.7) Lymphocytes # (Auto) 1.0x10^3/uL (1.0-4.8) Monocytes # (Auto) 0.8x10^3/uL (0.0-1.1) Eosinophils # (Auto) 0.2x10^3/uL (0.0-0.7) Basophils # (Auto) 0.1x10^3/uL (0.0-0.2) Sodium Level 135mmol/L (136-145) Potassium Level 4.0mmol/L (3.5-5.1) Chloride Level 103mmol/L (98-107) Carbon Dioxide Level 24mmol/L (21-32) Anion Gap 8 (6-14) Blood Urea Nitrogen 6mg/dL (7-20) Creatinine 0.8mg/dL (0.6-1.0) Estimated GFR (Cockcroft-Gault) 74.5 Glucose Level 75mg/dL (70-99) Calcium Level 7.5mg/dL (8.5-10.1) Review of Systems Review of Systems tiring. CP ongoing. no new sx Comment Review of Relevant I have reviewed the following items randi (where applicable) has been applied. Labs Laboratory Tests Test 09/01/16 07:30 09/02/16 05:20 White Blood Count 25.3x10^3/uL (4.0-11.0) 18.3x10^3/uL (4.0-11.0) Red Blood Count 3.10x10^6/uL (3.50-5.40) 2.86x10^6/uL (3.50-5.40) Hemoglobin 8.5g/dL (12.0-15.5) 8.0g/dL (12.0-15.5) Hematocrit 26.3% (36.0-47.0) 24.2% (36.0-47.0) Mean Corpuscular Volume 85fL (79-100) 85fL (79-100) Mean Corpuscular Hemoglobin 27pg (25-35) 28pg (25-35) Mean Corpuscular Hemoglobin Concent 32g/dL (31-37) 33g/dL (31-37) Red Cell Distribution Width 15.1% (11.5-14.5) 14.9% (11.5-14.5) Platelet Count 552x10^3/uL (140-400) 497x10^3/uL (140-400) Neutrophils (%) (Auto) 91% (31-73) 89% (31-73) Lymphocytes (%) (Auto) 4% (24-48) 6% (24-48) Monocytes (%) (Auto) 4% (0-9) 4% (0-9) Eosinophils (%) (Auto) 1% (0-3) 1% (0-3) Basophils (%) (Auto) 0% (0-3) 1% (0-3) Neutrophils # (Auto) 23.0x10^3uL (1.8-7.7) 16.2x10^3uL (1.8-7.7) Lymphocytes # (Auto) 1.1x10^3/uL (1.0-4.8) 1.0x10^3/uL (1.0-4.8) Monocytes # (Auto) 1.0x10^3/uL (0.0-1.1) 0.8x10^3/uL (0.0-1.1) Eosinophils # (Auto) 0.2x10^3/uL (0.0-0.7) 0.2x10^3/uL (0.0-0.7) Basophils # (Auto) 0.1x10^3/uL (0.0-0.2) 0.1x10^3/uL (0.0-0.2) Sodium Level 135mmol/L (136-145) 135mmol/L (136-145) Potassium Level 4.1mmol/L (3.5-5.1) 4.0mmol/L (3.5-5.1) Chloride Level 102mmol/L (98-107) 103mmol/L (98-107) Carbon Dioxide Level 23mmol/L (21-32) 24mmol/L (21-32) Anion Gap 10 (6-14) 8 (6-14) Blood Urea Nitrogen 10mg/dL (7-20) 6mg/dL (7-20) Creatinine 0.8mg/dL (0.6-1.0) 0.8mg/dL (0.6-1.0) Estimated GFR (Cockcroft-Gault) 74.5 74.5 Glucose Level 76mg/dL (70-99) 75mg/dL (70-99) Calcium Level 7.7mg/dL (8.5-10.1) 7.5mg/dL (8.5-10.1) Laboratory Tests Test 09/02/16 05:20 White Blood Count 18.3x10^3/uL (4.0-11.0) Red Blood Count 2.86x10^6/uL (3.50-5.40) Hemoglobin 8.0g/dL (12.0-15.5) Hematocrit 24.2% (36.0-47.0) Mean Corpuscular Volume 85fL (79-100) Mean Corpuscular Hemoglobin 28pg (25-35) Mean Corpuscular Hemoglobin Concent 33g/dL (31-37) Red Cell Distribution Width 14.9% (11.5-14.5) Platelet Count 497x10^3/uL (140-400) Neutrophils (%) (Auto) 89% (31-73) Lymphocytes (%) (Auto) 6% (24-48) Monocytes (%) (Auto) 4% (0-9) Eosinophils (%) (Auto) 1% (0-3) Basophils (%) (Auto) 1% (0-3) Neutrophils # (Auto) 16.2x10^3uL (1.8-7.7) Lymphocytes # (Auto) 1.0x10^3/uL (1.0-4.8) Monocytes # (Auto) 0.8x10^3/uL (0.0-1.1) Eosinophils # (Auto) 0.2x10^3/uL (0.0-0.7) Basophils # (Auto) 0.1x10^3/uL (0.0-0.2) Sodium Level 135mmol/L (136-145) Potassium Level 4.0mmol/L (3.5-5.1) Chloride Level 103mmol/L (98-107) Carbon Dioxide Level 24mmol/L (21-32) Anion Gap 8 (6-14) Blood Urea Nitrogen 6mg/dL (7-20) Creatinine 0.8mg/dL (0.6-1.0) Estimated GFR (Cockcroft-Gault) 74.5 Glucose Level 75mg/dL (70-99) Calcium Level 7.5mg/dL (8.5-10.1) Microbiology 08/25/16 Anaerobic/Aerobic Culture - Final, Resulted 08/25/16 Anaerobic Culture Result 1 (BRUCE) - Preliminary, Resulted 08/25/16 Aerobic Culture - Final, Resulted 08/25/16 Aerobic Culture Result 1 (BRUCE) - Final, Resulted Medications Current Medications Acetaminophen (Tylenol) 325 mg PRN Q6HRS PRN PO MILD PAIN / TEMP Last administered on 08/26/16 08:29; Start 08/25/16 at 12:45 Acetaminophen/ Hydrocodone Bitart (Lortab 5/325) 1 tab PRN Q6HRS PRN PO MODERATE PAIN Last administered on 08/27/16 02:06; Start 08/25/16 at 12:45; Stop 08/29/16 at 16:41; Status DC Hydralazine HCl (Apresoline) 10 mg PRN Q4HRS PRN IVP ELEVATED BP, SEE COMMENTS Last administered on 08/26/16 05:07; Start 08/25/16 at 12:45 Ondansetron HCl (Zofran) 4 mg PRN Q8HRS PRN IV NAUSEA/VOMITING Last administered on 08/25/16 15:42; Start 08/25/16 at 12:45; Stop 08/27/16 at 08:44 ; Status DC Albuterol Sulfate 2.5 mg 2.5 mg PRN Q4HRS PRN NEB SHORTNESS OF BREATH; Start at 12:45 Piperacillin Sod/ Tazobactam Sod 3.375 gm/Sodium Chloride 50 ml @ 100 mls/hr Q6HRS IV Last administered on 09/02/16 11:48; Start 08/25/16 at 13:00 Linezolid (Zyvox Premix) 300 ml @ 300 mls/hr Q12HR IV Last administered on 08:04; Start 08/25/16 at 14:00 Piperacillin Sod/ Tazobactam Sod 1 each 1 each PRN DAILY PRN MC SEE COMMENTS; Start 08/25/16 at 13:45; Stop 08/27/16 at 12:41; Status DC Levofloxacin/ Dextrose (LEVAQUIN 750mg PREMIX) 150 ml @ 100 mls/hr Q24H IV Last administered on 08/28/16 13:51; Start 08/25/16 at 14:00; Stop 08/28/16 at 14:37; Status DC Lidocaine/Sodium Bicarbonate (Buffered Lidocaine 1%) 20 ml STK-MED ONCE IJ ; Start 08/25/16 at 14:00; Stop 08/25/16 at 14:01; Status DC Lidocaine/Sodium Bicarbonate (Buffered Lidocaine 1%) 5 ml 1X ONCE IJ Last administered on 08/25/16 14:59; Start 08/25/16 at 15:00; Stop 08/25/16 at 15:01 ; Status DC Info (Do NOT chart on this placeholder) 1 each 1X ONCE MC ; Start 08/25/16 at 17:00; Stop 08/25/16 at 17:01; Status UNV Pneumococcal Polyvalent Vaccine (Do NOT chart on this placeholder) 1 each 1X ONCE MC ; Start 08/25/16 at 17:00; Stop 08/25/16 at 17:01; Status UNV Influenza Virus Vaccine Quadrival (Fluarix Quad [id number] Syringe) 0.5 ml ONCE ONCE VAX IM ; Start 08/26/16 at 09:00; Stop 08/26/16 at 09:01; Status DC Pneumococcal Polyvalent Vaccine (Pneumovax 23) 0.5 ml ONCE ONCE VAX IM ; Start 08/26/16 at 09:00; Stop 08/26/16 at 09:01; Status DC Enoxaparin Sodium (Lovenox 40mg Syringe) 40 mg Q24H SQ Last administered on 08:19; Start 08/26/16 at 09:00; Stop 08/29/16 at 11:45; Status DC Fentanyl Citrate (Fentanyl 2ml Vial) 25 mcg PRN Q4HRS PRN IV PAIN Last administered on 08/27/16 06:13; Start 08/26/16 at 08:30; Stop 08/29/16 at 15:07 ; Status DC Potassium Chloride (Klor-Con) 40 meq 1X ONCE PO Last administered on 11:24; Start 08/26/16 at 10:45; Stop 08/26/16 at 10:49; Status DC Mesalamine (Lialda) 4.8 gm DAILY06 PO Last administered on 09/02/16 05:07; Start 08/26/16 at 13:30 Olanzapine (Zyprexa) 2.5 mg HS PO Last administered on 09/01/16 20:40; Start 08/26/16 at 21:00 Sumatriptan Succinate (Imitrex) 100 mg PRN Q2HR PRN PO MIGRAINE HEADACHE; Start 08/26/16 at 13:30 Tizanidine HCl (Zanaflex) 4 mg QHS PO Last administered on 08/26/16 19:57; Start 08/26/16 at 21:00; Stop 08/26/16 at 21:00; Status DC Tramadol HCl (Ultram) 50 mg BID PO Last administered on 08/31/16 07:48; Start 08/26/16 at 14:00; Stop 08/31/16 at 15:54; Status DC Ascorbic Acid (Vitamin C) 1,000 mg DAILY PO Last administered on 09/02/16 08: 03; Start 08/27/16 at 09:00 Amylase/Lipase/ Protease (Zenpep 5,000) 5 cap TIDWMEALS PO Last administered on 09/02/16 16:31; Start 08/26/16 at 17:00 Niacin (Slo-Niacin) 500 mg QHS PO Last administered on 09/01/16 20:40; Start 08/26/16 at 21:00 Pantoprazole Sodium (Protonix) 40 mg DAILYAC PO Last administered on 09/02/16 08:03; Start 08/26/16 at 14:00 Non-Formulary Medication 1 tab DAILY PO ; Start 08/27/16 at 09:00; Status UNV Diphenoxylate HCl/ Atropine (Lomotil) 1 tab PRN QID PRN PO DIARRHEA Last administered on 08/31/16 09:53; Start 08/26/16 at 13:45 Tizanidine HCl (Zanaflex) 20 mg QHS PO Last administered on 09/01/16 20:40; Start 08/26/16 at 21:00 Acetaminophen/ Hydrocodone Bitart (Lortab 5/325) 2 tab PRN Q6HRS PRN PO SEVERE PAIN Last administered on 08/29/16 10:47; Start 08/27/16 at 04:45; Stop at 16:41; Status DC Ondansetron HCl (Zofran) 4 mg PRN Q6HRS PRN IV NAUSEA/VOMITING; Start 08/27/16 at 08:42 Vancomycin HCl 125 mg [id number] PO Last administered on 08/28/16 20:54; Start at 16:00; Stop 08/29/16 at 10:24; Status DC Lactobacillus Acidophilus 1 tab 1 tab TIDWMEALS PO Last administered on 16:31; Start 08/27/16 at 17:00 Sodium Chloride (Iv Sodium Chloride 0.9% 500ml Bag) 500 ml @ 500 mls/hr 1X ONCE IV Last administered on 08/28/16 00:52; Start 08/28/16 at 01:00; Stop at 01:59; Status DC Nicotine (Nicoderm Cq 21mg) 1 patch PRN DAILY PRN TD SMOKING CESSATION; Start 08/28/16 at 09:30 Cetirizine HCl (Zyrtec) 10 mg DAILY PO Last administered on 09/02/16 08:03; Start 08/28/16 at 10:00 Vitamin D (Vitamin D3) 1,000 unit DAILY PO Last administered on 09/02/16 08:03 ; Start 08/28/16 at 10:00 Iohexol (Omnipaque 300 Mg/ml) 75 ml 1X ONCE IV Last administered on 08/28/16 10:53; Start 08/28/16 at 10:15; Stop 08/28/16 at 10:16; Status DC Info (Do NOT chart on this entry -- for MONITORING) 1 each PRN DAILY PRN MC SEE COMMENTS; Start 08/28/16 at 10:00; Stop 08/30/16 at 09:59; Status DC Potassium Chloride (Klor-Con) 40 meq 1X ONCE PO Last administered on 13:52; Start 08/28/16 at 13:00; Stop 08/28/16 at 13:01; Status DC Lidocaine/Sodium Bicarbonate (Buffered Lidocaine 1%) 20 ml STK-MED ONCE IJ ; Start 08/29/16 at 08:36; Stop 08/29/16 at 08:37; Status DC Naloxone HCl (Narcan) 0.4 mg STK-MED ONCE .ROUTE ; Start 08/29/16 at 08:37; Stop 08/29/16 at 08:38; Status DC Flumazenil (Romazicon) 0.5 mg STK-MED ONCE IV ; Start 08/29/16 at 08:37; Stop at 08:38; Status DC Midazolam HCl (Versed) 5 mg STK-MED ONCE .ROUTE ; Start 08/29/16 at 08:37; Stop 08/29/16 at 08:38; Status DC Fentanyl Citrate (Fentanyl 5ml Vial) 250 mcg STK-MED ONCE .ROUTE ; Start at 08:37; Stop 08/29/16 at 08:38; Status DC Lidocaine/Sodium Bicarbonate (Buffered Lidocaine 1%) 6 ml 1X ONCE IJ Last administered on 08/29/16 09:09; Start 08/29/16 at 09:15; Stop 08/29/16 at 09:16 ; Status DC Midazolam HCl (Versed) 2 mg 1X ONCE IV Last administered on 08/29/16 09:08; Start 08/29/16 at 09:15; Stop 08/29/16 at 09:16; Status DC Fentanyl Citrate (Fentanyl 5ml Vial) 100 mcg 1X ONCE IV Last administered on 09:08; Start 08/29/16 at 09:15; Stop 08/29/16 at 09:16; Status DC Enoxaparin Sodium (Lovenox 40mg Syringe) 40 mg Q24H SQ Last administered on 16:01; Start 08/29/16 at 16:00; Stop 08/31/16 at 10:23; Status DC Acetaminophen/ Hydrocodone Bitart (Lortab 5/325) 1 tab PRN Q4HRS PRN PO MODERATE PAIN; Start 08/29/16 at 16:45; Stop 08/31/16 at 15:54; Status DC Acetaminophen/ Hydrocodone Bitart (Lortab 5/325) 2 tab PRN Q4HRS PRN PO SEVERE PAIN Last administered on 08/31/16 15:14; Start 08/29/16 at 16:45; Stop at 15:54; Status DC Lidocaine/Sodium Bicarbonate (Buffered Lidocaine 1%) 20 ml STK-MED ONCE IJ ; Start 08/30/16 at 13:57; Stop 08/30/16 at 13:58; Status DC Midazolam HCl (Versed) 2 mg STK-MED ONCE .ROUTE ; Start 08/30/16 at 14:22; Stop 08/30/16 at 14:23; Status DC Fentanyl Citrate (Fentanyl 2ml Vial) 100 mcg STK-MED ONCE .ROUTE ; Start at 14:22; Stop 08/30/16 at 14:23; Status DC Lidocaine/Sodium Bicarbonate (Buffered Lidocaine 1%) 4 ml 1X ONCE IJ Last administered on 08/30/16 15:08; Start 08/30/16 at 14:50; Stop 08/30/16 at 15:04 ; Status DC Midazolam HCl (Versed) 1 mg 1X ONCE IV Last administered on 08/30/16 15:09; Start 08/30/16 at 14:45; Stop 08/30/16 at 15:04; Status DC Fentanyl Citrate (Fentanyl 2ml Vial) 50 mcg 1X ONCE IV Last administered on 15:09; Start 08/30/16 at 14:45; Stop 08/30/16 at 15:05; Status DC Metoprolol Tartrate 25 mg 25 mg BID PO Last administered on 08/30/16 21:44; Start 08/30/16 at 21:00; Stop 08/31/16 at 17:09; Status DC Alteplase, Recombinant 5 mg/ Sterile Water 50 ml @ 5 mls/hr 1X ONCE IV ; Start 08/31/16 at 10:30; Stop 08/31/16 at 15:27; Status DC Alteplase, Recombinant 5 mg/ Sterile Water 50 ml @ 5 mls/hr 1X ONCE IV ; Start 08/31/16 at 10:45; Stop 08/31/16 at 15:27; Status DC Alteplase, Recombinant 5 mg/ Sterile Water 50 ml @ 5 mls/hr 1X ONCE INT CAT Last administered on 08/31/16 12:40; Start 08/31/16 at 15:27; Stop 08/31/16 at 20:29; Status DC Alteplase, Recombinant/ Sterile Water (Cathflo) 50 ml @ 5 mls/hr 1X ONCE INT CAT Last administered on 08/31/16 12:40; Start 08/31/16 at 15:27; Stop at 20:44; Status DC Oxycodone HCl (Roxicodone) 5 mg PRN Q3HRS PRN PO MILD-MOD PAIN Last administered on 09/01/16 06:04; Start 08/31/16 at 16:00 Morphine Sulfate 2 mg PRN Q6HRS PRN IV PAIN; Start 08/31/16 at 16:00; Stop at 18:07; Status DC Oxycodone HCl (Roxicodone) 10 mg PRN Q3HRS PRN PO SEVERE PAIN Last administered on 09/02/16 05:06; Start 08/31/16 at 16:00 Fentanyl Citrate (Fentanyl 2ml Vial) 50 mcg PRN Q2HR PRN IV PAIN SEV Last administered on 09/02/16 16:31; Start 08/31/16 at 18:15 Morphine Sulfate 2 mg 2 mg ONCE ONCE IV Last administered on 08/31/16 18:05; Start 08/31/16 at 20:45; Stop 08/31/16 at 20:46; Status DC Sodium Chloride (Iv Sodium Chloride 0.9% 500ml Bag) 500 ml @ 500 mls/hr 1X ONCE IV Last administered on 09/01/16 06:30; Start 09/01/16 at 06:30; Stop at 07:29; Status DC Alteplase, Recombinant (Cathflo) 2 mg 1X ONCE INT CAT Last administered on 06:35; Start 09/01/16 at 07:00; Stop 09/01/16 at 07:01; Status DC Albuterol Sulfate 2.5 mg 2.5 mg RTQID NEB Last administered on 09/02/16 16:08 ; Start 09/01/16 at 12:00 Sodium Chloride 1,000 ml @ 1,000 mls/hr 1X ONCE IV Last administered on 12:09; Start 09/01/16 at 11:45; Stop 09/01/16 at 12:44; Status DC Alteplase, Recombinant 5 mg/ Sterile Water 50 ml @ 5 mls/hr 1X ONCE INT CAT Last administered on 09/01/16 12:30; Start 09/01/16 at 12:30; Stop 09/01/16 at 22:29; Status DC Alteplase, Recombinant/ Sterile Water (Cathflo) 50 ml @ 5 mls/hr 1X ONCE INT CAT Last administered on 09/01/16 12:30; Start 09/01/16 at 12:30; Stop at 22:29; Status DC Alteplase, Recombinant 2 mg 2 mg 1X ONCE INT CAT Last administered on 15:18; Start 09/01/16 at 13:00; Stop 09/01/16 at 13:01; Status DC Sodium Chloride (Iv Sodium Chloride 0.9% 1000ml Bag) 1,000 ml @ 1,000 mls/hr 1X ONCE IV Last administered on 09/01/16 23:45; Start 09/01/16 at 23:45; Stop 09/02/16 at 00:44; Status DC Active Scripts Active Reported [diphen/atropine] 2.5 Mg PO PRN QID PRN Prilosec Otc (Omeprazole Magnesium) 20 Mg Tablet. 1 Tab PO DAILY Lialda (Mesalamine) 1.2 Gm Tablet. 4 Tab PO DAILY06 Tizanidine Hcl 4 Mg Tablet 5 Tab PO QHS Olanzapine 2.5 Mg Tablet 2.5 Mg PO HS Zyrtec (Cetirizine Hcl) 10 Mg Capsule 10 Mg PO DAILY Dhea 50 Mg Tablet (Prasterone (Dhea)/Calcium Carb) 1 Each Tablet 1 Tab PO DAILY Niacin 500 Mg Tablet 500 Mg PO HS Vitamin D3 (Cholecalciferol (Vitamin D3)) 1,000 Unit Capsule 1,000 Unit PO DAILY Vitamin C (Ascorbic Acid) 1,000 Mg Tab.chew 1,000 Mg PO DAILY Imitrex (Sumatriptan Succinate) 100 Mg Tablet 100 Mg PO ONCE PRN Tramadol Hcl 50 Mg Tablet 4 Tab PO BID Jolie Lambert 25,000 Units Capsule (Lipase/Protease/Amylase) 1 Each Capsule. 1 Each PO TIDAFTMEAL Vitals/I & O Vital Sign - Last 24 Hours 09/01/16 09/01/16 09/01/16 09/01/16 16:47 18:38 19:00 20:00 Temp 98.1 98.1 Pulse 118 Resp 18 B/P 147/79 Pulse Ox 98 O2 Delivery Nasal Cannula Nasal Cannula Nasal Cannula O2 Flow Rate 2.0 2.0 2.0 09/01/16 09/01/16 09/01/16 09/01/16 20:05 20:40 21:10 23:00 Temp 98.3 98.3 Pulse 81 Resp 18 B/P 79/43 Pulse Ox 99 99 99 94 O2 Delivery Nasal Cannula Nasal Cannula O2 Flow Rate 2.0 2.0 09/02/16 09/02/16 09/02/16 09/02/16 01:53 03:00 05:06 06:06 Temp 98.2 98.2 Pulse 84 Resp 18 B/P 81/53 Pulse Ox 94 98 94 94 O2 Delivery Nasal Cannula Nasal Cannula Nasal Cannula O2 Flow Rate 2.0 2.0 2.0 09/02/16 09/02/16 09/02/16 09/02/16 07:00 08:00 08:04 08:38 Temp 99.7 99.7 Pulse 96 Resp 20 B/P 110/61 Pulse Ox 97 99 O2 Delivery Nasal Cannula Nasal Cannula Nasal Cannula Nasal Cannula O2 Flow Rate 2.0 2.0 2.0 2.0 09/02/16 09/02/16 09/02/16 09/02/16 10:22 11:00 12:16 12:28 Temp 100.0 100.0 Pulse 115 Resp 20 B/P 133/75 Pulse Ox 99 98 100 O2 Delivery Nasal Cannula Room Air Nasal Cannula Nasal Cannula O2 Flow Rate 2.0 2.0 3.0 09/02/16 09/02/16 09/02/16 09/02/16 13:00 14:20 15:00 16:10 Temp 98.8 98.8 Pulse 130 Resp 22 B/P 146/76 Pulse Ox 97 96 O2 Delivery Nasal Cannula Nasal Cannula Nasal Cannula Nasal Cannula O2 Flow Rate 3.0 3.0 2.0 2.0 09/02/16 16:31 O2 Delivery Nasal Cannula O2 Flow Rate 3.0 Intake and Output 09/01/16 09/01/16 09/02/16 15:00 23:00 07:00 Intake Total 600 ml 1200 ml Output Total 1250 ml 1570 ml Balance 600 ml -50 ml -1570 ml PRADEEP NARAYANAN MD Sep 02, 2016 16:41
--- NOTE | 2016-09-02 18:13 | PDOC2 ---
CONSULT Date of Consult Date of Consult DATE: 09/02/16 TIME: 18:08 Reason for Consult Reason for Consult: Right sided empyema Referring Physician Referring Physician: Edmundo Brown MD Identification/Chief Complaint Chief Complaint Sepsis Source Source: Chart review, Patient History of Present Illness Reason for Visit: The patient is a 55-year-old female who presented to [facility] 08/21/2016 with complaints of worsening cough and pleuritic chest pain and dyspnea of one week duration. In the Emergency Room, she was noted to have tachycardia and elevated WBC count of 57,000 and lactic acid of 4.1. She was diagnosed with sepsis. She underwent a chest x-ray that revealed right lower lobe pneumonia with small pneumonic effusion. She underwent a CT scan of the chest on 08/22/2016 that revealed multilobar pneumonia, small to moderate multiloculated right parapneumonic effusion. There is also evidence of mild emphysema. She was started on antibiotics, however, she has progressive dyspnea and hypoxia and hence she was transferred to [facility]. She has had two IR guided pleural tubes placed and has been treated with 3 doses of tPA. On her last CT chest today, she has a persistent, complex and complicated right effusion. Her sepsis has resolved and she is now on 2 lit NC. I was consulted for surgical treatment of her empyema. Past Medical History Cardiovascular: No pertinent hx Pulmonary: COPD GI: No pertinent hx Heme/Onc: No pertinent hx Hepatobiliary: No pertinent hx Psych: No pertinent hx Rheumatologic: No pertinent hx Infectious disease: No pertinent hx ENT: No pertinent hx Renal/: Other (left nephrectomy) Endocrine: No pertinent hx Dermatology: No pertinent hx Past Surgical History Past Surgical History: Other (Left nephrectomy) Social History # pack years (40) ALCOHOL: rare Drugs: None Lives: with Family Current Problem List Problem List Problems Medical Problems: (1) CAP (community acquired pneumonia) Status: Acute (2) Empyema of lung Status: Acute Current Medications Current Medications Current Medications Acetaminophen (Tylenol) 325 mg PRN Q6HRS PRN PO MILD PAIN / TEMP Last administered on 08/26/16 08:29; Start 08/25/16 at 12:45 Acetaminophen/ Hydrocodone Bitart (Lortab 5/325) 1 tab PRN Q6HRS PRN PO MODERATE PAIN Last administered on 08/27/16 02:06; Start 08/25/16 at 12:45; Stop 08/29/16 at 16:41; Status DC Hydralazine HCl (Apresoline) 10 mg PRN Q4HRS PRN IVP ELEVATED BP, SEE COMMENTS Last administered on 08/26/16 05:07; Start 08/25/16 at 12:45 Ondansetron HCl (Zofran) 4 mg PRN Q8HRS PRN IV NAUSEA/VOMITING Last administered on 08/25/16 15:42; Start 08/25/16 at 12:45; Stop 08/27/16 at 08:44 ; Status DC Albuterol Sulfate 2.5 mg 2.5 mg PRN Q4HRS PRN NEB SHORTNESS OF BREATH; Start at 12:45 Piperacillin Sod/ Tazobactam Sod 3.375 gm/Sodium Chloride 50 ml @ 100 mls/hr Q6HRS IV Last administered on 09/02/16 11:48; Start 08/25/16 at 13:00 Linezolid (Zyvox Premix) 300 ml @ 300 mls/hr Q12HR IV Last administered on 08:04; Start 08/25/16 at 14:00 Piperacillin Sod/ Tazobactam Sod 1 each 1 each PRN DAILY PRN MC SEE COMMENTS; Start 08/25/16 at 13:45; Stop 08/27/16 at 12:41; Status DC Levofloxacin/ Dextrose (LEVAQUIN 750mg PREMIX) 150 ml @ 100 mls/hr Q24H IV Last administered on 08/28/16 13:51; Start 08/25/16 at 14:00; Stop 08/28/16 at 14:37; Status DC Lidocaine/Sodium Bicarbonate (Buffered Lidocaine 1%) 20 ml STK-MED ONCE IJ ; Start 08/25/16 at 14:00; Stop 08/25/16 at 14:01; Status DC Lidocaine/Sodium Bicarbonate (Buffered Lidocaine 1%) 5 ml 1X ONCE IJ Last administered on 08/25/16 14:59; Start 08/25/16 at 15:00; Stop 08/25/16 at 15:01 ; Status DC Info (Do NOT chart on this placeholder) 1 each 1X ONCE MC ; Start 08/25/16 at 17:00; Stop 08/25/16 at 17:01; Status UNV Pneumococcal Polyvalent Vaccine (Do NOT chart on this placeholder) 1 each 1X ONCE MC ; Start 08/25/16 at 17:00; Stop 08/25/16 at 17:01; Status UNV Influenza Virus Vaccine Quadrival (Fluarix Quad [id number] Syringe) 0.5 ml ONCE ONCE VAX IM ; Start 08/26/16 at 09:00; Stop 08/26/16 at 09:01; Status DC Pneumococcal Polyvalent Vaccine (Pneumovax 23) 0.5 ml ONCE ONCE VAX IM ; Start 08/26/16 at 09:00; Stop 08/26/16 at 09:01; Status DC Enoxaparin Sodium (Lovenox 40mg Syringe) 40 mg Q24H SQ Last administered on 08:19; Start 08/26/16 at 09:00; Stop 08/29/16 at 11:45; Status DC Fentanyl Citrate (Fentanyl 2ml Vial) 25 mcg PRN Q4HRS PRN IV PAIN Last administered on 08/27/16 06:13; Start 08/26/16 at 08:30; Stop 08/29/16 at 15:07 ; Status DC Potassium Chloride (Klor-Con) 40 meq 1X ONCE PO Last administered on 11:24; Start 08/26/16 at 10:45; Stop 08/26/16 at 10:49; Status DC Mesalamine (Lialda) 4.8 gm DAILY06 PO Last administered on 09/02/16 05:07; Start 08/26/16 at 13:30 Olanzapine (Zyprexa) 2.5 mg HS PO Last administered on 09/01/16 20:40; Start 08/26/16 at 21:00 Sumatriptan Succinate (Imitrex) 100 mg PRN Q2HR PRN PO MIGRAINE HEADACHE; Start 08/26/16 at 13:30 Tizanidine HCl (Zanaflex) 4 mg QHS PO Last administered on 08/26/16 19:57; Start 08/26/16 at 21:00; Stop 08/26/16 at 21:00; Status DC Tramadol HCl (Ultram) 50 mg BID PO Last administered on 08/31/16 07:48; Start 08/26/16 at 14:00; Stop 08/31/16 at 15:54; Status DC Ascorbic Acid (Vitamin C) 1,000 mg DAILY PO Last administered on 09/02/16 08: 03; Start 08/27/16 at 09:00 Amylase/Lipase/ Protease (Zenpep 5,000) 5 cap TIDWMEALS PO Last administered on 09/02/16 16:31; Start 08/26/16 at 17:00 Niacin (Slo-Niacin) 500 mg QHS PO Last administered on 09/01/16 20:40; Start 08/26/16 at 21:00 Pantoprazole Sodium (Protonix) 40 mg DAILYAC PO Last administered on 09/02/16 08:03; Start 08/26/16 at 14:00 Non-Formulary Medication 1 tab DAILY PO ; Start 08/27/16 at 09:00; Status UNV Diphenoxylate HCl/ Atropine (Lomotil) 1 tab PRN QID PRN PO DIARRHEA Last administered on 08/31/16 09:53; Start 08/26/16 at 13:45 Tizanidine HCl (Zanaflex) 20 mg QHS PO Last administered on 09/01/16 20:40; Start 08/26/16 at 21:00 Acetaminophen/ Hydrocodone Bitart (Lortab 5/325) 2 tab PRN Q6HRS PRN PO SEVERE PAIN Last administered on 08/29/16 10:47; Start 08/27/16 at 04:45; Stop at 16:41; Status DC Ondansetron HCl (Zofran) 4 mg PRN Q6HRS PRN IV NAUSEA/VOMITING; Start 08/27/16 at 08:42 Vancomycin HCl 125 mg [id number] PO Last administered on 08/28/16 20:54; Start at 16:00; Stop 08/29/16 at 10:24; Status DC Lactobacillus Acidophilus 1 tab 1 tab TIDWMEALS PO Last administered on 16:31; Start 08/27/16 at 17:00 Sodium Chloride (Iv Sodium Chloride 0.9% 500ml Bag) 500 ml @ 500 mls/hr 1X ONCE IV Last administered on 08/28/16 00:52; Start 08/28/16 at 01:00; Stop at 01:59; Status DC Nicotine (Nicoderm Cq 21mg) 1 patch PRN DAILY PRN TD SMOKING CESSATION; Start 08/28/16 at 09:30 Cetirizine HCl (Zyrtec) 10 mg DAILY PO Last administered on 09/02/16 08:03; Start 08/28/16 at 10:00 Vitamin D (Vitamin D3) 1,000 unit DAILY PO Last administered on 09/02/16 08:03 ; Start 08/28/16 at 10:00 Iohexol (Omnipaque 300 Mg/ml) 75 ml 1X ONCE IV Last administered on 08/28/16 10:53; Start 08/28/16 at 10:15; Stop 08/28/16 at 10:16; Status DC Info (Do NOT chart on this entry -- for MONITORING) 1 each PRN DAILY PRN MC SEE COMMENTS; Start 08/28/16 at 10:00; Stop 08/30/16 at 09:59; Status DC Potassium Chloride (Klor-Con) 40 meq 1X ONCE PO Last administered on 13:52; Start 08/28/16 at 13:00; Stop 08/28/16 at 13:01; Status DC Lidocaine/Sodium Bicarbonate (Buffered Lidocaine 1%) 20 ml STK-MED ONCE IJ ; Start 08/29/16 at 08:36; Stop 08/29/16 at 08:37; Status DC Naloxone HCl (Narcan) 0.4 mg STK-MED ONCE .ROUTE ; Start 08/29/16 at 08:37; Stop 08/29/16 at 08:38; Status DC Flumazenil (Romazicon) 0.5 mg STK-MED ONCE IV ; Start 08/29/16 at 08:37; Stop at 08:38; Status DC Midazolam HCl (Versed) 5 mg STK-MED ONCE .ROUTE ; Start 08/29/16 at 08:37; Stop 08/29/16 at 08:38; Status DC Fentanyl Citrate (Fentanyl 5ml Vial) 250 mcg STK-MED ONCE .ROUTE ; Start at 08:37; Stop 08/29/16 at 08:38; Status DC Lidocaine/Sodium Bicarbonate (Buffered Lidocaine 1%) 6 ml 1X ONCE IJ Last administered on 08/29/16 09:09; Start 08/29/16 at 09:15; Stop 08/29/16 at 09:16 ; Status DC Midazolam HCl (Versed) 2 mg 1X ONCE IV Last administered on 08/29/16 09:08; Start 08/29/16 at 09:15; Stop 08/29/16 at 09:16; Status DC Fentanyl Citrate (Fentanyl 5ml Vial) 100 mcg 1X ONCE IV Last administered on 09:08; Start 08/29/16 at 09:15; Stop 08/29/16 at 09:16; Status DC Enoxaparin Sodium (Lovenox 40mg Syringe) 40 mg Q24H SQ Last administered on 16:01; Start 08/29/16 at 16:00; Stop 08/31/16 at 10:23; Status DC Acetaminophen/ Hydrocodone Bitart (Lortab 5/325) 1 tab PRN Q4HRS PRN PO MODERATE PAIN; Start 08/29/16 at 16:45; Stop 08/31/16 at 15:54; Status DC Acetaminophen/ Hydrocodone Bitart (Lortab 5/325) 2 tab PRN Q4HRS PRN PO SEVERE PAIN Last administered on 08/31/16 15:14; Start 08/29/16 at 16:45; Stop at 15:54; Status DC Lidocaine/Sodium Bicarbonate (Buffered Lidocaine 1%) 20 ml STK-MED ONCE IJ ; Start 08/30/16 at 13:57; Stop 08/30/16 at 13:58; Status DC Midazolam HCl (Versed) 2 mg STK-MED ONCE .ROUTE ; Start 08/30/16 at 14:22; Stop 08/30/16 at 14:23; Status DC Fentanyl Citrate (Fentanyl 2ml Vial) 100 mcg STK-MED ONCE .ROUTE ; Start at 14:22; Stop 08/30/16 at 14:23; Status DC Lidocaine/Sodium Bicarbonate (Buffered Lidocaine 1%) 4 ml 1X ONCE IJ Last administered on 08/30/16 15:08; Start 08/30/16 at 14:50; Stop 08/30/16 at 15:04 ; Status DC Midazolam HCl (Versed) 1 mg 1X ONCE IV Last administered on 08/30/16 15:09; Start 08/30/16 at 14:45; Stop 08/30/16 at 15:04; Status DC Fentanyl Citrate (Fentanyl 2ml Vial) 50 mcg 1X ONCE IV Last administered on 15:09; Start 08/30/16 at 14:45; Stop 08/30/16 at 15:05; Status DC Metoprolol Tartrate 25 mg 25 mg BID PO Last administered on 08/30/16 21:44; Start 08/30/16 at 21:00; Stop 08/31/16 at 17:09; Status DC Alteplase, Recombinant 5 mg/ Sterile Water 50 ml @ 5 mls/hr 1X ONCE IV ; Start 08/31/16 at 10:30; Stop 08/31/16 at 15:27; Status DC Alteplase, Recombinant 5 mg/ Sterile Water 50 ml @ 5 mls/hr 1X ONCE IV ; Start 08/31/16 at 10:45; Stop 08/31/16 at 15:27; Status DC Alteplase, Recombinant 5 mg/ Sterile Water 50 ml @ 5 mls/hr 1X ONCE INT CAT Last administered on 08/31/16 12:40; Start 08/31/16 at 15:27; Stop 08/31/16 at 20:29; Status DC Alteplase, Recombinant/ Sterile Water (Cathflo) 50 ml @ 5 mls/hr 1X ONCE INT CAT Last administered on 08/31/16 12:40; Start 08/31/16 at 15:27; Stop at 20:44; Status DC Oxycodone HCl (Roxicodone) 5 mg PRN Q3HRS PRN PO MILD-MOD PAIN Last administered on 09/01/16 06:04; Start 08/31/16 at 16:00 Morphine Sulfate 2 mg PRN Q6HRS PRN IV PAIN; Start 08/31/16 at 16:00; Stop at 18:07; Status DC Oxycodone HCl (Roxicodone) 10 mg PRN Q3HRS PRN PO SEVERE PAIN Last administered on 09/02/16 05:06; Start 08/31/16 at 16:00 Fentanyl Citrate (Fentanyl 2ml Vial) 50 mcg PRN Q2HR PRN IV PAIN SEV Last administered on 09/02/16 16:31; Start 08/31/16 at 18:15 Morphine Sulfate 2 mg 2 mg ONCE ONCE IV Last administered on 08/31/16 18:05; Start 08/31/16 at 20:45; Stop 08/31/16 at 20:46; Status DC Sodium Chloride (Iv Sodium Chloride 0.9% 500ml Bag) 500 ml @ 500 mls/hr 1X ONCE IV Last administered on 09/01/16 06:30; Start 09/01/16 at 06:30; Stop at 07:29; Status DC Alteplase, Recombinant (Cathflo) 2 mg 1X ONCE INT CAT Last administered on 06:35; Start 09/01/16 at 07:00; Stop 09/01/16 at 07:01; Status DC Albuterol Sulfate 2.5 mg 2.5 mg RTQID NEB Last administered on 09/02/16 16:08 ; Start 09/01/16 at 12:00 Sodium Chloride 1,000 ml @ 1,000 mls/hr 1X ONCE IV Last administered on 12:09; Start 09/01/16 at 11:45; Stop 09/01/16 at 12:44; Status DC Alteplase, Recombinant 5 mg/ Sterile Water 50 ml @ 5 mls/hr 1X ONCE INT CAT Last administered on 09/01/16 12:30; Start 09/01/16 at 12:30; Stop 09/01/16 at 22:29; Status DC Alteplase, Recombinant/ Sterile Water (Cathflo) 50 ml @ 5 mls/hr 1X ONCE INT CAT Last administered on 09/01/16 12:30; Start 09/01/16 at 12:30; Stop at 22:29; Status DC Alteplase, Recombinant 2 mg 2 mg 1X ONCE INT CAT Last administered on 15:18; Start 09/01/16 at 13:00; Stop 09/01/16 at 13:01; Status DC Sodium Chloride (Iv Sodium Chloride 0.9% 1000ml Bag) 1,000 ml @ 1,000 mls/hr 1X ONCE IV Last administered on 1/19/17at 23:45; Start 09/01/16 at 23:45; Stop 09/02/16 at 00:44; Status DC Active Scripts Active Reported [diphen/atropine] 2.5 Mg PO PRN QID PRN Prilosec Otc (Omeprazole Magnesium) 20 Mg Tablet.dr 1 Tab PO DAILY Lialda (Mesalamine) 1.2 Gm Tablet.dr 4 Tab PO DAILY06 Tizanidine Hcl 4 Mg Tablet 5 Tab PO QHS Olanzapine 2.5 Mg Tablet 2.5 Mg PO HS Zyrtec (Cetirizine Hcl) 10 Mg Capsule 10 Mg PO DAILY Dhea 50 Mg Tablet (Prasterone (Dhea)/Calcium Carb) 1 Each Tablet 1 Tab PO DAILY Niacin 500 Mg Tablet 500 Mg PO HS Vitamin D3 (Cholecalciferol (Vitamin D3)) 1,000 Unit Capsule 1,000 Unit PO DAILY Vitamin C (Ascorbic Acid) 1,000 Mg Tab.chew 1,000 Mg PO DAILY Imitrex (Sumatriptan Succinate) 100 Mg Tablet 100 Mg PO ONCE PRN Tramadol Hcl 50 Mg Tablet 4 Tab PO BID Zenpep Dr 25,000 Units Capsule (Lipase/Protease/Amylase) 1 Each Capsule.dr 1 Each PO TIDAFTMEAL Allergies Allergies: Coded Allergies: No Known Drug Allergies (Unverified , 01/15/16) ROS General: No: Appetite, Chills, Fatigue, Malaise, Night Sweats PSYCHOLOGICAL ROS: No: Anxiety, Behavioral Disorder, Concentration difficultie , Decreased libido, Depression, Disorientation, Hallucinations, Hostility, Irritablity, Memory difficulties, Mood Swings, Obsessive thoughts, Physical abuse, Sexual abuse, Sleep disturbances, Suicidal ideation Eyes: No Blurry vision, No Decreased vision, No Double vision, No Dry eyes, No Excessive tearing, No Eye Pain, No Itchy Eyes, No Loss of vision, No Photophobia , No Scotomata, No Uses contacts, No Uses glasses HEENT: No: Epistaxis, Heacaches, Hearing change, Nasal congestion, Nasal discharge, Oral lesions, Sinus pain, Sneezing, Snoring, Sore Throat, Tinnitus, Vertigo, Visual Changes, Vocal changes ALLERGY AND IMMUNOLOGY: No: Hives, Insect Bite Sensitivity, Itchy/Watery Eyes, Nasal Congestion, Post Nasal Drip, Seasonal Allergies Hematological and Lymphatic: No: Bleeding Problems, Blood Clots, Blood Transfusions, Brusing, Night Sweats, Pallor, Swollen Lymph Nodes ENDOCRINE: No: Breast Changes, Galactorrhea, Hair Pattern Changes, Hot Flashes , Malaise/lethargy, Mood Swings, Palpitations, Polydipsia/polyuria, Skin Changes , Temperature Intolerance, Unexpected Weight Changes Breast: No New/Changing Breast Lumps, No Nipple changes, No Nipple discharge Respiratory: YES: Other, Pleuritic Pain, Shortness of breath, No: Cough, Hemoptysis, Orthopnea, SOB with excertion, Sputum Changes, Stridor , Tachypnea, Wheezing Cardiovascular: No Chest Pain, No Edema, No Lt Headedness, No Orthopnea, No Palpitations, No Paroxysmal Noc. Dyspnea Gastrointestinal: No Abdominal Pain, No Constipation, No Diarrhea, No Hematochezia, No Melena, No Nausea, No Vomiting Genitourinary: No Discharge, No Dysuria, No Flank Pain, No Frequency, No Hematuria, No Incontinence, No Pain, No Retention, No Urgency Musculoskeletal: No Gait Disturbance, No Joint Pain, No Joint Stiffness, No Joint Swelling, No Muscle Pain, No Muscular Weakness, No Pain In:, No Swelling In: Neurological: No Behavorial Changes, No Bowel/Bladder ControlChng, No Confusion , No Dizziness, No Gait Disturbance, No Headaches, No Impaired Coord/balance, No Memory Loss, No Numbness/Tingling, No Seizures, No Speech Problems, No Tremors, No Visual Changes, No Weakness Skin: No Acne, No Dry Skin, No Eczema, No Hair Changes, No Lumps, No Mole Changes, No Mottling, No Nail Changes, No Pruritus, No Rash, No Skin Lesion Changes Physical Exam General: Alert, Oriented X3, Cooperative, No acute distress HEENT: Atraumatic, PERRLA, EOMI Lungs: Other (reduced air entry right) Heart: Regular rate, Normal S1, Normal S2 Abdomen: Normal bowel sounds, Soft, No tenderness Extremities: No clubbing, No cyanosis, No edema Skin: No significant lesion Neuro: Normal gait, Normal speech, Strength at 5/5 X4 ext, Normal tone, Sensation intact, Cranial nerves 3-12 NL Psych/Mental Status: Mental status NL MUSCULOSKELETAL: No deformity Vitals VITALS Vital Signs Date Time Temp Pulse Resp B/P Pulse Ox O2 Delivery O2 Flow Rate FiO2 09/02/16 16:31 Nasal Cannula 3.0 09/02/16 16:10 96 09/02/16 15:00 98.8 130 22 146/76 98.8 Labs Labs Laboratory Tests Test 09/01/16 07:30 09/02/16 05:20 White Blood Count 25.3x10^3/uL (4.0-11.0) 18.3x10^3/uL (4.0-11.0) Red Blood Count 3.10x10^6/uL (3.50-5.40) 2.86x10^6/uL (3.50-5.40) Hemoglobin 8.5g/dL (12.0-15.5) 8.0g/dL (12.0-15.5) Hematocrit 26.3% (36.0-47.0) 24.2% (36.0-47.0) Mean Corpuscular Volume 85fL (79-100) 85fL (79-100) Mean Corpuscular Hemoglobin 27pg (25-35) 28pg (25-35) Mean Corpuscular Hemoglobin Concent 32g/dL (31-37) 33g/dL (31-37) Red Cell Distribution Width 15.1% (11.5-14.5) 14.9% (11.5-14.5) Platelet Count 552x10^3/uL (140-400) 497x10^3/uL (140-400) Neutrophils (%) (Auto) 91% (31-73) 89% (31-73) Lymphocytes (%) (Auto) 4% (24-48) 6% (24-48) Monocytes (%) (Auto) 4% (0-9) 4% (0-9) Eosinophils (%) (Auto) 1% (0-3) 1% (0-3) Basophils (%) (Auto) 0% (0-3) 1% (0-3) Neutrophils # (Auto) 23.0x10^3uL (1.8-7.7) 16.2x10^3uL (1.8-7.7) Lymphocytes # (Auto) 1.1x10^3/uL (1.0-4.8) 1.0x10^3/uL (1.0-4.8) Monocytes # (Auto) 1.0x10^3/uL (0.0-1.1) 0.8x10^3/uL (0.0-1.1) Eosinophils # (Auto) 0.2x10^3/uL (0.0-0.7) 0.2x10^3/uL (0.0-0.7) Basophils # (Auto) 0.1x10^3/uL (0.0-0.2) 0.1x10^3/uL (0.0-0.2) Sodium Level 135mmol/L (136-145) 135mmol/L (136-145) Potassium Level 4.1mmol/L (3.5-5.1) 4.0mmol/L (3.5-5.1) Chloride Level 102mmol/L (98-107) 103mmol/L (98-107) Carbon Dioxide Level 23mmol/L (21-32) 24mmol/L (21-32) Anion Gap 10 (6-14) 8 (6-14) Blood Urea Nitrogen 10mg/dL (7-20) 6mg/dL (7-20) Creatinine 0.8mg/dL (0.6-1.0) 0.8mg/dL (0.6-1.0) Estimated GFR (Cockcroft-Gault) 74.5 74.5 Glucose Level 76mg/dL (70-99) 75mg/dL (70-99) Calcium Level 7.7mg/dL (8.5-10.1) 7.5mg/dL (8.5-10.1) Laboratory Tests Test 09/02/16 05:20 White Blood Count 18.3x10^3/uL (4.0-11.0) Red Blood Count 2.86x10^6/uL (3.50-5.40) Hemoglobin 8.0g/dL (12.0-15.5) Hematocrit 24.2% (36.0-47.0) Mean Corpuscular Volume 85fL (79-100) Mean Corpuscular Hemoglobin 28pg (25-35) Mean Corpuscular Hemoglobin Concent 33g/dL (31-37) Red Cell Distribution Width 14.9% (11.5-14.5) Platelet Count 497x10^3/uL (140-400) Neutrophils (%) (Auto) 89% (31-73) Lymphocytes (%) (Auto) 6% (24-48) Monocytes (%) (Auto) 4% (0-9) Eosinophils (%) (Auto) 1% (0-3) Basophils (%) (Auto) 1% (0-3) Neutrophils # (Auto) 16.2x10^3uL (1.8-7.7) Lymphocytes # (Auto) 1.0x10^3/uL (1.0-4.8) Monocytes # (Auto) 0.8x10^3/uL (0.0-1.1) Eosinophils # (Auto) 0.2x10^3/uL (0.0-0.7) Basophils # (Auto) 0.1x10^3/uL (0.0-0.2) Sodium Level 135mmol/L (136-145) Potassium Level 4.0mmol/L (3.5-5.1) Chloride Level 103mmol/L (98-107) Carbon Dioxide Level 24mmol/L (21-32) Anion Gap 8 (6-14) Blood Urea Nitrogen 6mg/dL (7-20) Creatinine 0.8mg/dL (0.6-1.0) Estimated GFR (Cockcroft-Gault) 74.5 Glucose Level 75mg/dL (70-99) Calcium Level 7.5mg/dL (8.5-10.1) Images Images CT chest (09/02/16) Drainage of pleural fluid from the inferior aspect of the right pleural space. However, there is still a significant loculated posterior pleural fluid collection within the right mid chest. Improved aeration of the right lung base. Persistent bilateral lung infiltrates are seen. Assessment/Plan Assessment/Plan 55 year old female, admitted 10 days ago with sepsis secondary to community acquired pneumonia, complicated by right parapneumonic effusion, confirmed empyema by pH<6. Two IR guided thoracentesis tubes have been placed and three tPA treatments given, with persistence of loculated right effusion. I agree that the patient requires a right VATS, drainage of empyema and pulmonary decortication. The risks, benefits and limitations of the procedure were explained to the patient in detail. She accepts the risks and agrees to proceed. Plan for R VATS, drainage of empyema and pulmonary decortication on Monday, September 05 2016. Cross match 2 units PRBCs given patient's preoperative anemia NPO after MN prior to surgery Continue iv abx YOVANI WHALEY MD Sep 02, 2016 18:13
[2016-09-02 19:47] VITALS: BP 142/85
[2016-09-02] MEDS: NIACIN ER 500 MG TABLET.ER PO SCH (21:22)
[2016-09-02] MEDS: OLANZAPINE 2.5 MG TABLET PO SCH (21:22)
[2016-09-02] MEDS: tiZANidine 4 MG TABLET. PO SCH (21:22)
[2016-09-02 22:50] VITALS: BP 86/57
[2016-09-03] MEDS: PIPERACILLIN/TAZOBACTAM 3.375 GM in IV NORMAL SALINE 50ML 50 ML IV SCH ×5 (00:05→23:41)
[2016-09-03] MEDS: OXYCODONE IR 5 MG TABLET. PO PRN ×5 (00:49→18:00)
[2016-09-03 03:55] VITALS: BP 77/50
[2016-09-03] MEDS: ALBUTEROL SULFATE 2.5 MG/3 ML NEBU. NEB SCH ×4 (05:50→20:16)
[2016-09-03] MEDS: MESALAMINE 1.2 GM TABLET.DR PO SCH (06:13)
[2016-09-03 06:39] LABS: BASO # 0.1 x10^3/uL (0.0-0.2); BASO % 1 % (0-3); EOS % 1 % (0-3); HEMATOCRIT 21.6 % (36.0-47.0); LYMPH % 6 % (24-48); MEAN CORPUSCULAR HEMOGLOBIN 27 pg (25-35); MEAN CORPUSCULAR HGB CONC 32 g/dL (31-37); MEAN CORPUSCULAR VOLUME 85 fL (79-100); MONO % 5 % (0-9); NEUT % 87 % (31-73); PLATELET COUNT 490 x10^3/uL (140-400); RED BLOOD COUNT 2.56 x10^6/uL (3.50-5.40); RED CELL DISTRIBUTION WIDTH 14.9 % (11.5-14.5)
[2016-09-03 06:47] LABS: INR 1.3 (0.8-1.1)
[2016-09-03 06:53] LABS: CREATININE 0.7 mg/dL (0.6-1.0); GFR 86.9; POTASSIUM 3.8 mmol/L (3.5-5.1)
[2016-09-03 07:00] VITALS: BP 92/53
[2016-09-03] MEDS: LIPASE/PROTEAS/AMYLASE 5/17/27 CAPSULE.DR. PO SCH ×3 (08:11→17:27)
[2016-09-03] MEDS: CETIRIZINE HCL 10 MG TABLET PO SCH (08:11)
[2016-09-03] MEDS: CHOLECALCIFEROL (VITAMIN D3) 1,000 UNIT TABLET PO SCH (08:11)
[2016-09-03] MEDS: PANTOPRAZOLE 40 MG TABLET. PO SCH (08:11)
[2016-09-03] MEDS: LACTOBACILLUS ACIDOPH & BULGAR 1 TABLET. PO SCH ×3 (08:11→17:27)
[2016-09-03] MEDS: ASCORBIC ACID 500 MG TABLET PO SCH (08:11)
[2016-09-03 11:00] VITALS: BP 113/64
--- NOTE | 2016-09-03 11:07 | PDOC ---
PROGRESS NOTES Chief Complaint Chief Complaint Acute hypoxic respiratory failure ASSESSMENT AND PLAN: 1. PNA: multilobar. on broad spectrum coverage (zosyn, linezolid) 2. Empyema: loculated, now double CT in place, TPA administered in both . unfortunately, 3rd fluid pocket present. consult to CT surg for decortication 3. COPD exacerbation: resolving 4. Sepsis: resolved 5. Leukocytosis with severe left shift: continues to improve. leukemoid rxn from infect, confirmed by BM bx obtained 08/29. 6. HTN, tachycardia: recurrent, after several days of soft Bp and low HR. tolerating tachycardia for now. restart BB if persistent. 7. BP at low normal, prob influenced by IV narcotics. IVF boluses PRN 8. UC: on mesalamine, pancreatic enzymes, macrobiotics 9. Depression: on zyprexa 10. Smoker: nicotine patch 11. Migraine: imitrex PRN 12. chest pain: musculoskeletal w/ CT: fentanyl, Oxy PO PRN 13. Prophylaxis: lovenox, PPI 14. Dispo: no acute plans for D/C with ongoing interventions w/ empyema. will prob need SNF rather than LTAC at D/C History of Present Illness History of Present Illness Pt seen and examined Still with double Chest tubes on the Right Co pain VSS On O2 Vitals Vitals Vital Signs Date Time Temp Pulse Resp B/P Pulse Ox O2 Delivery O2 Flow Rate FiO2 09/03/16 11:00 98.2 93 18 113/64 98 Room Air 98.2 09/03/16 09:33 2.0 Physical Exam General: Alert, Oriented X3, Cooperative, No acute distress Heart: Regular rate, Normal S1, Normal S2 Lungs: Other (decrease bs right, crackles with 2 CTs) Abdomen: Normal bowel sounds, Soft, No tenderness Extremities: No clubbing, No cyanosis, No edema Skin: No significant lesion Labs LABS Laboratory Tests Test 09/03/16 06:15 White Blood Count 16.0x10^3/uL (4.0-11.0) Red Blood Count 2.56x10^6/uL (3.50-5.40) Hemoglobin 7.0g/dL (12.0-15.5) Hematocrit 21.6% (36.0-47.0) Mean Corpuscular Volume 85fL (79-100) Mean Corpuscular Hemoglobin 27pg (25-35) Mean Corpuscular Hemoglobin Concent 32g/dL (31-37) Red Cell Distribution Width 14.9% (11.5-14.5) Platelet Count 490x10^3/uL (140-400) Neutrophils (%) (Auto) 87% (31-73) Lymphocytes (%) (Auto) 6% (24-48) Monocytes (%) (Auto) 5% (0-9) Eosinophils (%) (Auto) 1% (0-3) Basophils (%) (Auto) 1% (0-3) Neutrophils # (Auto) 13.9x10^3uL (1.8-7.7) Lymphocytes # (Auto) 1.0x10^3/uL (1.0-4.8) Monocytes # (Auto) 0.7x10^3/uL (0.0-1.1) Eosinophils # (Auto) 0.2x10^3/uL (0.0-0.7) Basophils # (Auto) 0.1x10^3/uL (0.0-0.2) Prothrombin Time 15.0SEC (11.7-14.0) Prothromb Time International Ratio 1.3 (0.8-1.1) Activated Partial Thromboplast Time 36SEC (24-38) Sodium Level 136mmol/L (136-145) Potassium Level 3.8mmol/L (3.5-5.1) Chloride Level 103mmol/L (98-107) Carbon Dioxide Level 25mmol/L (21-32) Anion Gap 8 (6-14) Blood Urea Nitrogen 6mg/dL (7-20) Creatinine 0.7mg/dL (0.6-1.0) Estimated GFR (Cockcroft-Gault) 86.9 Glucose Level 100mg/dL (70-99) Calcium Level 8.0mg/dL (8.5-10.1) Review of Systems Review of Systems co pain co weakness Assessment and Plan Assessmemt and Plan Problems Medical Problems: (1) CAP (community acquired pneumonia) Status: Acute (2) Empyema of lung Status: Acute ASSESSMENT AND PLAN: 1. PNA: multilobar. on broad spectrum coverage (zosyn, linezolid) 2. Empyema: loculated, now double CT in place, TPA administered in both . unfortunately, 3rd fluid pocket present. consult to CT surg for decortication 3. COPD exacerbation: resolving 4. Sepsis: resolved 5. Leukocytosis with severe left shift: continues to improve. leukemoid rxn from infect, confirmed by BM bx obtained 08/29. 6. HTN, tachycardia: recurrent, after several days of soft Bp and low HR. tolerating tachycardia for now. restart BB if persistent. 7. BP at low normal, prob influenced by IV narcotics. IVF boluses PRN 8. UC: on mesalamine, pancreatic enzymes, macrobiotics 9. Depression: on zyprexa 10. Smoker: nicotine patch 11. Migraine: imitrex PRN 12. chest pain: musculoskeletal w/ CT: fentanyl, Oxy PO PRN 13. Prophylaxis: lovenox, PPI 14. Dispo: no acute plans for D/C with ongoing interventions w/ empyema. will prob need SNF rather than LTAC at D/C Problems: Comment Review of Relevant I have reviewed the following items randi (where applicable) has been applied. Labs Laboratory Tests Test 09/02/16 05:20 09/03/16 06:15 White Blood Count 18.3x10^3/uL (4.0-11.0) 16.0x10^3/uL (4.0-11.0) Red Blood Count 2.86x10^6/uL (3.50-5.40) 2.56x10^6/uL (3.50-5.40) Hemoglobin 8.0g/dL (12.0-15.5) 7.0g/dL (12.0-15.5) Hematocrit 24.2% (36.0-47.0) 21.6% (36.0-47.0) Mean Corpuscular Volume 85fL (79-100) 85fL (79-100) Mean Corpuscular Hemoglobin 28pg (25-35) 27pg (25-35) Mean Corpuscular Hemoglobin Concent 33g/dL (31-37) 32g/dL (31-37) Red Cell Distribution Width 14.9% (11.5-14.5) 14.9% (11.5-14.5) Platelet Count 497x10^3/uL (140-400) 490x10^3/uL (140-400) Neutrophils (%) (Auto) 89% (31-73) 87% (31-73) Lymphocytes (%) (Auto) 6% (24-48) 6% (24-48) Monocytes (%) (Auto) 4% (0-9) 5% (0-9) Eosinophils (%) (Auto) 1% (0-3) 1% (0-3) Basophils (%) (Auto) 1% (0-3) 1% (0-3) Neutrophils # (Auto) 16.2x10^3uL (1.8-7.7) 13.9x10^3uL (1.8-7.7) Lymphocytes # (Auto) 1.0x10^3/uL (1.0-4.8) 1.0x10^3/uL (1.0-4.8) Monocytes # (Auto) 0.8x10^3/uL (0.0-1.1) 0.7x10^3/uL (0.0-1.1) Eosinophils # (Auto) 0.2x10^3/uL (0.0-0.7) 0.2x10^3/uL (0.0-0.7) Basophils # (Auto) 0.1x10^3/uL (0.0-0.2) 0.1x10^3/uL (0.0-0.2) Sodium Level 135mmol/L (136-145) 136mmol/L (136-145) Potassium Level 4.0mmol/L (3.5-5.1) 3.8mmol/L (3.5-5.1) Chloride Level 103mmol/L (98-107) 103mmol/L (98-107) Carbon Dioxide Level 24mmol/L (21-32) 25mmol/L (21-32) Anion Gap 8 (6-14) 8 (6-14) Blood Urea Nitrogen 6mg/dL (7-20) 6mg/dL (7-20) Creatinine 0.8mg/dL (0.6-1.0) 0.7mg/dL (0.6-1.0) Estimated GFR (Cockcroft-Gault) 74.5 86.9 Glucose Level 75mg/dL (70-99) 100mg/dL (70-99) Calcium Level 7.5mg/dL (8.5-10.1) 8.0mg/dL (8.5-10.1) Prothrombin Time 15.0SEC (11.7-14.0) Prothromb Time International Ratio 1.3 (0.8-1.1) Activated Partial Thromboplast Time 36SEC (24-38) Laboratory Tests Test 09/03/16 06:15 White Blood Count 16.0x10^3/uL (4.0-11.0) Red Blood Count 2.56x10^6/uL (3.50-5.40) Hemoglobin 7.0g/dL (12.0-15.5) Hematocrit 21.6% (36.0-47.0) Mean Corpuscular Volume 85fL (79-100) Mean Corpuscular Hemoglobin 27pg (25-35) Mean Corpuscular Hemoglobin Concent 32g/dL (31-37) Red Cell Distribution Width 14.9% (11.5-14.5) Platelet Count 490x10^3/uL (140-400) Neutrophils (%) (Auto) 87% (31-73) Lymphocytes (%) (Auto) 6% (24-48) Monocytes (%) (Auto) 5% (0-9) Eosinophils (%) (Auto) 1% (0-3) Basophils (%) (Auto) 1% (0-3) Neutrophils # (Auto) 13.9x10^3uL (1.8-7.7) Lymphocytes # (Auto) 1.0x10^3/uL (1.0-4.8) Monocytes # (Auto) 0.7x10^3/uL (0.0-1.1) Eosinophils # (Auto) 0.2x10^3/uL (0.0-0.7) Basophils # (Auto) 0.1x10^3/uL (0.0-0.2) Prothrombin Time 15.0SEC (11.7-14.0) Prothromb Time International Ratio 1.3 (0.8-1.1) Activated Partial Thromboplast Time 36SEC (24-38) Sodium Level 136mmol/L (136-145) Potassium Level 3.8mmol/L (3.5-5.1) Chloride Level 103mmol/L (98-107) Carbon Dioxide Level 25mmol/L (21-32) Anion Gap 8 (6-14) Blood Urea Nitrogen 6mg/dL (7-20) Creatinine 0.7mg/dL (0.6-1.0) Estimated GFR (Cockcroft-Gault) 86.9 Glucose Level 100mg/dL (70-99) Calcium Level 8.0mg/dL (8.5-10.1) Microbiology 08/25/16 Anaerobic/Aerobic Culture - Final, Resulted 08/25/16 Anaerobic Culture Result 1 (BRUCE) - Preliminary, Resulted 08/25/16 Aerobic Culture - Final, Resulted 08/25/16 Aerobic Culture Result 1 (BRUCE) - Final, Resulted Medications Current Medications Acetaminophen (Tylenol) 325 mg PRN Q6HRS PRN PO MILD PAIN / TEMP Last administered on 08/26/16 08:29; Start 08/25/16 at 12:45 Acetaminophen/ Hydrocodone Bitart (Lortab 5/325) 1 tab PRN Q6HRS PRN PO MODERATE PAIN Last administered on 08/27/16 02:06; Start 08/25/16 at 12:45; Stop 08/29/16 at 16:41; Status DC Hydralazine HCl (Apresoline) 10 mg PRN Q4HRS PRN IVP ELEVATED BP, SEE COMMENTS Last administered on 08/26/16 05:07; Start 08/25/16 at 12:45 Ondansetron HCl (Zofran) 4 mg PRN Q8HRS PRN IV NAUSEA/VOMITING Last administered on 08/25/16 15:42; Start 08/25/16 at 12:45; Stop 08/27/16 at 08:44 ; Status DC Albuterol Sulfate 2.5 mg 2.5 mg PRN Q4HRS PRN NEB SHORTNESS OF BREATH; Start at 12:45 Piperacillin Sod/ Tazobactam Sod 3.375 gm/Sodium Chloride 50 ml @ 100 mls/hr Q6HRS IV Last administered on 09/03/16 06:12; Start 08/25/16 at 13:00 Linezolid (Zyvox Premix) 300 ml @ 300 mls/hr Q12HR IV Last administered on 08:32; Start 08/25/16 at 14:00 Piperacillin Sod/ Tazobactam Sod 1 each 1 each PRN DAILY PRN MC SEE COMMENTS; Start 08/25/16 at 13:45; Stop 08/27/16 at 12:41; Status DC Levofloxacin/ Dextrose (LEVAQUIN 750mg PREMIX) 150 ml @ 100 mls/hr Q24H IV Last administered on 08/28/16 13:51; Start 08/25/16 at 14:00; Stop 08/28/16 at 14:37; Status DC Lidocaine/Sodium Bicarbonate (Buffered Lidocaine 1%) 20 ml STK-MED ONCE IJ ; Start 08/25/16 at 14:00; Stop 08/25/16 at 14:01; Status DC Lidocaine/Sodium Bicarbonate (Buffered Lidocaine 1%) 5 ml 1X ONCE IJ Last administered on 08/25/16 14:59; Start 08/25/16 at 15:00; Stop 08/25/16 at 15:01 ; Status DC Info (Do NOT chart on this placeholder) 1 each 1X ONCE MC ; Start 08/25/16 at 17:00; Stop 08/25/16 at 17:01; Status UNV Pneumococcal Polyvalent Vaccine (Do NOT chart on this placeholder) 1 each 1X ONCE MC ; Start 08/25/16 at 17:00; Stop 08/25/16 at 17:01; Status UNV Influenza Virus Vaccine Quadrival (Fluarix Quad [id number] Syringe) 0.5 ml ONCE ONCE VAX IM ; Start 08/26/16 at 09:00; Stop 08/26/16 at 09:01; Status DC Pneumococcal Polyvalent Vaccine (Pneumovax 23) 0.5 ml ONCE ONCE VAX IM ; Start 08/26/16 at 09:00; Stop 08/26/16 at 09:01; Status DC Enoxaparin Sodium (Lovenox 40mg Syringe) 40 mg Q24H SQ Last administered on 08:19; Start 08/26/16 at 09:00; Stop 08/29/16 at 11:45; Status DC Fentanyl Citrate (Fentanyl 2ml Vial) 25 mcg PRN Q4HRS PRN IV PAIN Last administered on 08/27/16 06:13; Start 08/26/16 at 08:30; Stop 08/29/16 at 15:07 ; Status DC Potassium Chloride (Klor-Con) 40 meq 1X ONCE PO Last administered on 11:24; Start 08/26/16 at 10:45; Stop 08/26/16 at 10:49; Status DC Mesalamine (Lialda) 4.8 gm DAILY06 PO Last administered on 09/03/16 06:13; Start 08/26/16 at 13:30 Olanzapine (Zyprexa) 2.5 mg HS PO Last administered on 09/02/16 21:22; Start 08/26/16 at 21:00 Sumatriptan Succinate (Imitrex) 100 mg PRN Q2HR PRN PO MIGRAINE HEADACHE; Start 08/26/16 at 13:30 Tizanidine HCl (Zanaflex) 4 mg QHS PO Last administered on 08/26/16 19:57; Start 08/26/16 at 21:00; Stop 08/26/16 at 21:00; Status DC Tramadol HCl (Ultram) 50 mg BID PO Last administered on 08/31/16 07:48; Start 08/26/16 at 14:00; Stop 08/31/16 at 15:54; Status DC Ascorbic Acid (Vitamin C) 1,000 mg DAILY PO Last administered on 09/03/16 08: 11; Start 08/27/16 at 09:00 Amylase/Lipase/ Protease (Zenpep 5,000) 5 cap TIDWMEALS PO Last administered on 09/03/16 08:11; Start 08/26/16 at 17:00 Niacin (Slo-Niacin) 500 mg QHS PO Last administered on 09/02/16 21:22; Start 08/26/16 at 21:00 Pantoprazole Sodium (Protonix) 40 mg DAILYAC PO Last administered on 09/03/16 08:11; Start 08/26/16 at 14:00 Non-Formulary Medication 1 tab DAILY PO ; Start 08/27/16 at 09:00; Status UNV Diphenoxylate HCl/ Atropine (Lomotil) 1 tab PRN QID PRN PO DIARRHEA Last administered on 08/31/16 09:53; Start 08/26/16 at 13:45 Tizanidine HCl (Zanaflex) 20 mg QHS PO Last administered on 09/02/16 21:22; Start 08/26/16 at 21:00 Acetaminophen/ Hydrocodone Bitart (Lortab 5/325) 2 tab PRN Q6HRS PRN PO SEVERE PAIN Last administered on 08/29/16 10:47; Start 08/27/16 at 04:45; Stop at 16:41; Status DC Ondansetron HCl (Zofran) 4 mg PRN Q6HRS PRN IV NAUSEA/VOMITING; Start 08/27/16 at 08:42 Vancomycin HCl 125 mg [id number] PO Last administered on 08/28/16 20:54; Start at 16:00; Stop 08/29/16 at 10:24; Status DC Lactobacillus Acidophilus 1 tab 1 tab TIDWMEALS PO Last administered on 08:11; Start 08/27/16 at 17:00 Sodium Chloride (Iv Sodium Chloride 0.9% 500ml Bag) 500 ml @ 500 mls/hr 1X ONCE IV Last administered on 08/28/16 00:52; Start 08/28/16 at 01:00; Stop at 01:59; Status DC Nicotine (Nicoderm Cq 21mg) 1 patch PRN DAILY PRN TD SMOKING CESSATION; Start 08/28/16 at 09:30 Cetirizine HCl (Zyrtec) 10 mg DAILY PO Last administered on 09/03/16 08:11; Start 08/28/16 at 10:00 Vitamin D (Vitamin D3) 1,000 unit DAILY PO Last administered on 09/03/16 08:11 ; Start 08/28/16 at 10:00 Iohexol (Omnipaque 300 Mg/ml) 75 ml 1X ONCE IV Last administered on 08/28/16 10:53; Start 08/28/16 at 10:15; Stop 08/28/16 at 10:16; Status DC Info (Do NOT chart on this entry -- for MONITORING) 1 each PRN DAILY PRN MC SEE COMMENTS; Start 08/28/16 at 10:00; Stop 08/30/16 at 09:59; Status DC Potassium Chloride (Klor-Con) 40 meq 1X ONCE PO Last administered on 13:52; Start 08/28/16 at 13:00; Stop 08/28/16 at 13:01; Status DC Lidocaine/Sodium Bicarbonate (Buffered Lidocaine 1%) 20 ml STK-MED ONCE IJ ; Start 08/29/16 at 08:36; Stop 08/29/16 at 08:37; Status DC Naloxone HCl (Narcan) 0.4 mg STK-MED ONCE .ROUTE ; Start 08/29/16 at 08:37; Stop 08/29/16 at 08:38; Status DC Flumazenil (Romazicon) 0.5 mg STK-MED ONCE IV ; Start 08/29/16 at 08:37; Stop at 08:38; Status DC Midazolam HCl (Versed) 5 mg STK-MED ONCE .ROUTE ; Start 08/29/16 at 08:37; Stop 08/29/16 at 08:38; Status DC Fentanyl Citrate (Fentanyl 5ml Vial) 250 mcg STK-MED ONCE .ROUTE ; Start at 08:37; Stop 08/29/16 at 08:38; Status DC Lidocaine/Sodium Bicarbonate (Buffered Lidocaine 1%) 6 ml 1X ONCE IJ Last administered on 08/29/16 09:09; Start 08/29/16 at 09:15; Stop 08/29/16 at 09:16 ; Status DC Midazolam HCl (Versed) 2 mg 1X ONCE IV Last administered on 08/29/16 09:08; Start 08/29/16 at 09:15; Stop 08/29/16 at 09:16; Status DC Fentanyl Citrate (Fentanyl 5ml Vial) 100 mcg 1X ONCE IV Last administered on 09:08; Start 08/29/16 at 09:15; Stop 08/29/16 at 09:16; Status DC Enoxaparin Sodium (Lovenox 40mg Syringe) 40 mg Q24H SQ Last administered on 16:01; Start 08/29/16 at 16:00; Stop 08/31/16 at 10:23; Status DC Acetaminophen/ Hydrocodone Bitart (Lortab 5/325) 1 tab PRN Q4HRS PRN PO MODERATE PAIN; Start 08/29/16 at 16:45; Stop 08/31/16 at 15:54; Status DC Acetaminophen/ Hydrocodone Bitart (Lortab 5/325) 2 tab PRN Q4HRS PRN PO SEVERE PAIN Last administered on 08/31/16t 15:14; Start 08/29/16 at 16:45; Stop at 15:54; Status DC Lidocaine/Sodium Bicarbonate (Buffered Lidocaine 1%) 20 ml STK-MED ONCE IJ ; Start 08/30/16 at 13:57; Stop 08/30/16 at 13:58; Status DC Midazolam HCl (Versed) 2 mg STK-MED ONCE .ROUTE ; Start 08/30/16 at 14:22; Stop 08/30/16 at 14:23; Status DC Fentanyl Citrate (Fentanyl 2ml Vial) 100 mcg STK-MED ONCE .ROUTE ; Start at 14:22; Stop 08/30/16 at 14:23; Status DC Lidocaine/Sodium Bicarbonate (Buffered Lidocaine 1%) 4 ml 1X ONCE IJ Last administered on 08/30/16 15:08; Start 08/30/16 at 14:50; Stop 08/30/16 at 15:04 ; Status DC Midazolam HCl (Versed) 1 mg 1X ONCE IV Last administered on 08/30/16 15:09; Start 08/30/16 at 14:45; Stop 08/30/16 at 15:04; Status DC Fentanyl Citrate (Fentanyl 2ml Vial) 50 mcg 1X ONCE IV Last administered on 15:09; Start 08/30/16 at 14:45; Stop 08/30/16 at 15:05; Status DC Metoprolol Tartrate 25 mg 25 mg BID PO Last administered on 08/30/16t 21:44; Start 08/30/16 at 21:00; Stop 08/31/16 at 17:09; Status DC Alteplase, Recombinant 5 mg/ Sterile Water 50 ml @ 5 mls/hr 1X ONCE IV ; Start 08/31/16 at 10:30; Stop 08/31/16 at 15:27; Status DC Alteplase, Recombinant 5 mg/ Sterile Water 50 ml @ 5 mls/hr 1X ONCE IV ; Start 08/31/16 at 10:45; Stop 08/31/16 at 15:27; Status DC Alteplase, Recombinant 5 mg/ Sterile Water 50 ml @ 5 mls/hr 1X ONCE INT CAT Last administered on 08/31/16 12:40; Start 08/31/16 at 15:27; Stop 08/31/16 at 20:29; Status DC Alteplase, Recombinant/ Sterile Water (Cathflo) 50 ml @ 5 mls/hr 1X ONCE INT CAT Last administered on 08/31/16 12:40; Start 08/31/16 at 15:27; Stop at 20:44; Status DC Oxycodone HCl (Roxicodone) 5 mg PRN Q3HRS PRN PO MILD-MOD PAIN Last administered on 09/03/16 00:49; Start 08/31/16 at 16:00 Morphine Sulfate 2 mg PRN Q6HRS PRN IV PAIN; Start 08/31/16 at 16:00; Stop at 18:07; Status DC Oxycodone HCl (Roxicodone) 10 mg PRN Q3HRS PRN PO SEVERE PAIN Last administered on 09/03/16 08:33; Start 08/31/16 at 16:00 Fentanyl Citrate (Fentanyl 2ml Vial) 50 mcg PRN Q2HR PRN IV PAIN SEV Last administered on 09/02/16 18:39; Start 08/31/16 at 18:15 Morphine Sulfate 2 mg 2 mg ONCE ONCE IV Last administered on 08/31/16 18:05; Start 08/31/16 at 20:45; Stop 08/31/16 at 20:46; Status DC Sodium Chloride (Iv Sodium Chloride 0.9% 500ml Bag) 500 ml @ 500 mls/hr 1X ONCE IV Last administered on 09/01/16 06:30; Start 09/01/16 at 06:30; Stop at 07:29; Status DC Alteplase, Recombinant (Cathflo) 2 mg 1X ONCE INT CAT Last administered on 06:35; Start 09/01/16 at 07:00; Stop 09/01/16 at 07:01; Status DC Albuterol Sulfate 2.5 mg 2.5 mg RTQID NEB Last administered on 09/03/16 05:50 ; Start 09/01/16 at 12:00 Sodium Chloride 1,000 ml @ 1,000 mls/hr 1X ONCE IV Last administered on 12:09; Start 09/01/16 at 11:45; Stop 09/01/16 at 12:44; Status DC Alteplase, Recombinant 5 mg/ Sterile Water 50 ml @ 5 mls/hr 1X ONCE INT CAT Last administered on 09/01/16 12:30; Start 09/01/16 at 12:30; Stop 09/01/16 at 22:29; Status DC Alteplase, Recombinant/ Sterile Water (Cathflo) 50 ml @ 5 mls/hr 1X ONCE INT CAT Last administered on 09/01/16 12:30; Start 09/01/16 at 12:30; Stop at 22:29; Status DC Alteplase, Recombinant 2 mg 2 mg 1X ONCE INT CAT Last administered on 15:18; Start 09/01/16 at 13:00; Stop 09/01/16 at 13:01; Status DC Sodium Chloride (Iv Sodium Chloride 0.9% 1000ml Bag) 1,000 ml @ 1,000 mls/hr 1X ONCE IV Last administered on 09/01/16 23:45; Start 09/01/16 at 23:45; Stop 09/02/16 at 00:44; Status DC Active Scripts Active Reported [diphen/atropine] 2.5 Mg PO PRN QID PRN Prilosec Otc (Omeprazole Magnesium) 20 Mg Tablet. 1 Tab PO DAILY Lialda (Mesalamine) 1.2 Gm Tablet. 4 Tab PO DAILY06 Tizanidine Hcl 4 Mg Tablet 5 Tab PO QHS Olanzapine 2.5 Mg Tablet 2.5 Mg PO HS Zyrtec (Cetirizine Hcl) 10 Mg Capsule 10 Mg PO DAILY Dhea 50 Mg Tablet (Prasterone (Dhea)/Calcium Carb) 1 Each Tablet 1 Tab PO DAILY Niacin 500 Mg Tablet 500 Mg PO HS Vitamin D3 (Cholecalciferol (Vitamin D3)) 1,000 Unit Capsule 1,000 Unit PO DAILY Vitamin C (Ascorbic Acid) 1,000 Mg Tab.chew 1,000 Mg PO DAILY Imitrex (Sumatriptan Succinate) 100 Mg Tablet 100 Mg PO ONCE PRN Tramadol Hcl 50 Mg Tablet 4 Tab PO BID Zenpep Dr 25,000 Units Capsule (Lipase/Protease/Amylase) 1 Each Capsule. 1 Each PO TIDAFTMEAL Vitals/I & O Vital Sign - Last 24 Hours 09/02/16 09/02/16 09/02/16 09/02/16 12:16 12:28 14:20 15:00 Temp 98.8 98.8 Pulse 130 Resp 22 B/P 146/76 Pulse Ox 100 97 O2 Delivery Nasal Cannula Nasal Cannula Nasal Cannula Nasal Cannula O2 Flow Rate 2.0 3.0 3.0 2.0 09/02/16 09/02/16 09/02/16 09/02/16 16:10 16:31 17:00 18:39 Pulse Ox 96 O2 Delivery Nasal Cannula Nasal Cannula Nasal Cannula Nasal Cannula O2 Flow Rate 2.0 3.0 2.0 3.0 09/02/16 09/02/16 09/02/16 09/02/16 19:47 20:00 20:08 21:24 Pulse 114 Resp 20 24 B/P 142/85 Pulse Ox 99 99 99 O2 Delivery Nasal Cannula Nasal Cannula Nasal Cannula Nasal Cannula O2 Flow Rate 2.0 2.0 3.0 3.0 09/02/16 09/02/16 09/03/16 09/03/16 22:24 22:50 00:49 01:49 Temp 98.6 98.6 Pulse 96 Resp 20 B/P 86/57 Pulse Ox 99 99 99 96 O2 Delivery Nasal Cannula Nasal Cannula Nasal Cannula O2 Flow Rate 2.0 2.0 3.0 09/03/16 09/03/16 09/03/16 09/03/16 03:55 05:50 07:00 08:00 Temp 98.1 98.1 98.1 98.1 Pulse 81 93 Resp 18 B/P 77/50 92/53 Pulse Ox 99 96 99 O2 Delivery Nasal Cannula Nasal Cannula Room Air Nasal Cannula O2 Flow Rate 2.0 3.0 3.0 09/03/16 09/03/16 09/03/16 08:33 09:33 11:00 Temp 98.2 98.2 Pulse 93 Resp 24 20 18 B/P 113/64 Pulse Ox 98 O2 Delivery Nasal Cannula Nasal Cannula Room Air O2 Flow Rate 2.0 2.0 Intake and Output 09/02/16 09/02/16 09/03/16 15:00 23:00 07:00 Intake Total 960 ml 600 ml Output Total 1975 ml 350 ml 1300 ml Balance -1975 ml 610 ml -700 ml SIGIFREDO TORRES III DO Sep 03, 2016 11:07
--- NOTE | 2016-09-03 13:33 | PDOC ---
Infectious Disease Note Subjective Subjective Feeling alright at the moment. Darnell pain, SOA, cough + diarrhea, not as bad Denies N/V/cramps Vital Sign Vital Signs Vital Signs Date Time Temp Pulse Resp B/P Pulse Ox O2 Delivery O2 Flow Rate FiO2 09/03/16 12:51 18 Nasal Cannula 2.0 09/03/16 11:56 98 09/03/16 11:00 98.2 93 113/64 98.2 Physical Exam PHYSICAL EXAM GENERAL: Propped up in bed, Alert, NAD HEENT: OC/OP clear NECK: Diminished aeration bases. Nonlabored. Right-sided CT x 2. LUNGS: Clear HEART: S1S2, no gallop, no murmur ABD: BS present, soft, NT EXT: No edema, no cyanosis [employer]: Alert, oriented x 3, no focal neurologic deficit SKIN: No rash RUE-PICC. clean Labs Lab Laboratory Tests Test 09/03/16 06:15 White Blood Count 16.0x10^3/uL (4.0-11.0) Red Blood Count 2.56x10^6/uL (3.50-5.40) Hemoglobin 7.0g/dL (12.0-15.5) Hematocrit 21.6% (36.0-47.0) Mean Corpuscular Volume 85fL (79-100) Mean Corpuscular Hemoglobin 27pg (25-35) Mean Corpuscular Hemoglobin Concent 32g/dL (31-37) Red Cell Distribution Width 14.9% (11.5-14.5) Platelet Count 490x10^3/uL (140-400) Neutrophils (%) (Auto) 87% (31-73) Lymphocytes (%) (Auto) 6% (24-48) Monocytes (%) (Auto) 5% (0-9) Eosinophils (%) (Auto) 1% (0-3) Basophils (%) (Auto) 1% (0-3) Neutrophils # (Auto) 13.9x10^3uL (1.8-7.7) Lymphocytes # (Auto) 1.0x10^3/uL (1.0-4.8) Monocytes # (Auto) 0.7x10^3/uL (0.0-1.1) Eosinophils # (Auto) 0.2x10^3/uL (0.0-0.7) Basophils # (Auto) 0.1x10^3/uL (0.0-0.2) Prothrombin Time 15.0SEC (11.7-14.0) Prothromb Time International Ratio 1.3 (0.8-1.1) Activated Partial Thromboplast Time 36SEC (24-38) Sodium Level 136mmol/L (136-145) Potassium Level 3.8mmol/L (3.5-5.1) Chloride Level 103mmol/L (98-107) Carbon Dioxide Level 25mmol/L (21-32) Anion Gap 8 (6-14) Blood Urea Nitrogen 6mg/dL (7-20) Creatinine 0.7mg/dL (0.6-1.0) Estimated GFR (Cockcroft-Gault) 86.9 Glucose Level 100mg/dL (70-99) Calcium Level 8.0mg/dL (8.5-10.1) Objective Assessment Diarrhea - chronic problem at home - better. C-diff neg S/p Bone marrow 08/29. negative malignant cells CAP Right empyema. s/p chest tube placement, 08/25 and 08/30 - pH 7.1. Cults neg Leukocytosis, better Fever. better Sepsis with lactic acidosis Suspected COPD Hypoxia H/o C-diff Plan Plan of Care Continue Zyvox and Zosyn Cont probiotics Monitor labs F/u bone marrow - final results Right VATS, drainage of empyema and pulmonary decortication on Monday, September 05 D/w Patient seen and examined. Chart reviewed. Case discussed with [employer]. Agree with above plan RUSSEL ISRAEL APRN Sep 03, 2016 13:33 GERARDO ZAMBRANO MD Sep 03, 2016 22:57
[2016-09-03] MEDS: SUMATRIPTAN SUCCINATE 100 MG TABLET. PO PRN (14:15)
[2016-09-03 14:54] VITALS: BP 113/75
--- NOTE | 2016-09-03 15:08 | PDOC ---
PULMONARY PROGRESS NOTES Subjective feels better no soa s/p second chest tube 08/30 s/p TPA via both chest tubes 08/31, 09/01 Vitals Vital Signs Date Time Temp Pulse Resp B/P Pulse Ox O2 Delivery O2 Flow Rate FiO2 09/03/16 14:54 98.2 112 18 113/75 98 Room Air 98.2 09/03/16 12:51 2.0 Comments ros as above, other sys otherwise neg General: Alert, No acute distress HEENT: Other (nc at perrl, throat nose clear) Lungs: Other (decrease bs right, crackles with 2 CTs) Cardiovascular: S1, S2 Abdomen: Soft, Non-tender, Other (no mass) Neuro Exam: Alert, Oriented, No Focal Findings Extremities: No Edema Skin: Warm Labs Laboratory Tests Test 09/02/16 05:20 09/03/16 06:15 White Blood Count 18.3x10^3/uL (4.0-11.0) 16.0x10^3/uL (4.0-11.0) Red Blood Count 2.86x10^6/uL (3.50-5.40) 2.56x10^6/uL (3.50-5.40) Hemoglobin 8.0g/dL (12.0-15.5) 7.0g/dL (12.0-15.5) Hematocrit 24.2% (36.0-47.0) 21.6% (36.0-47.0) Mean Corpuscular Volume 85fL (79-100) 85fL (79-100) Mean Corpuscular Hemoglobin 28pg (25-35) 27pg (25-35) Mean Corpuscular Hemoglobin Concent 33g/dL (31-37) 32g/dL (31-37) Red Cell Distribution Width 14.9% (11.5-14.5) 14.9% (11.5-14.5) Platelet Count 497x10^3/uL (140-400) 490x10^3/uL (140-400) Neutrophils (%) (Auto) 89% (31-73) 87% (31-73) Lymphocytes (%) (Auto) 6% (24-48) 6% (24-48) Monocytes (%) (Auto) 4% (0-9) 5% (0-9) Eosinophils (%) (Auto) 1% (0-3) 1% (0-3) Basophils (%) (Auto) 1% (0-3) 1% (0-3) Neutrophils # (Auto) 16.2x10^3uL (1.8-7.7) 13.9x10^3uL (1.8-7.7) Lymphocytes # (Auto) 1.0x10^3/uL (1.0-4.8) 1.0x10^3/uL (1.0-4.8) Monocytes # (Auto) 0.8x10^3/uL (0.0-1.1) 0.7x10^3/uL (0.0-1.1) Eosinophils # (Auto) 0.2x10^3/uL (0.0-0.7) 0.2x10^3/uL (0.0-0.7) Basophils # (Auto) 0.1x10^3/uL (0.0-0.2) 0.1x10^3/uL (0.0-0.2) Sodium Level 135mmol/L (136-145) 136mmol/L (136-145) Potassium Level 4.0mmol/L (3.5-5.1) 3.8mmol/L (3.5-5.1) Chloride Level 103mmol/L (98-107) 103mmol/L (98-107) Carbon Dioxide Level 24mmol/L (21-32) 25mmol/L (21-32) Anion Gap 8 (6-14) 8 (6-14) Blood Urea Nitrogen 6mg/dL (7-20) 6mg/dL (7-20) Creatinine 0.8mg/dL (0.6-1.0) 0.7mg/dL (0.6-1.0) Estimated GFR (Cockcroft-Gault) 74.5 86.9 Glucose Level 75mg/dL (70-99) 100mg/dL (70-99) Calcium Level 7.5mg/dL (8.5-10.1) 8.0mg/dL (8.5-10.1) Prothrombin Time 15.0SEC (11.7-14.0) Prothromb Time International Ratio 1.3 (0.8-1.1) Activated Partial Thromboplast Time 36SEC (24-38) Laboratory Tests Test 09/03/16 06:15 White Blood Count 16.0x10^3/uL (4.0-11.0) Red Blood Count 2.56x10^6/uL (3.50-5.40) Hemoglobin 7.0g/dL (12.0-15.5) Hematocrit 21.6% (36.0-47.0) Mean Corpuscular Volume 85fL (79-100) Mean Corpuscular Hemoglobin 27pg (25-35) Mean Corpuscular Hemoglobin Concent 32g/dL (31-37) Red Cell Distribution Width 14.9% (11.5-14.5) Platelet Count 490x10^3/uL (140-400) Neutrophils (%) (Auto) 87% (31-73) Lymphocytes (%) (Auto) 6% (24-48) Monocytes (%) (Auto) 5% (0-9) Eosinophils (%) (Auto) 1% (0-3) Basophils (%) (Auto) 1% (0-3) Neutrophils # (Auto) 13.9x10^3uL (1.8-7.7) Lymphocytes # (Auto) 1.0x10^3/uL (1.0-4.8) Monocytes # (Auto) 0.7x10^3/uL (0.0-1.1) Eosinophils # (Auto) 0.2x10^3/uL (0.0-0.7) Basophils # (Auto) 0.1x10^3/uL (0.0-0.2) Prothrombin Time 15.0SEC (11.7-14.0) Prothromb Time International Ratio 1.3 (0.8-1.1) Activated Partial Thromboplast Time 36SEC (24-38) Sodium Level 136mmol/L (136-145) Potassium Level 3.8mmol/L (3.5-5.1) Chloride Level 103mmol/L (98-107) Carbon Dioxide Level 25mmol/L (21-32) Anion Gap 8 (6-14) Blood Urea Nitrogen 6mg/dL (7-20) Creatinine 0.7mg/dL (0.6-1.0) Estimated GFR (Cockcroft-Gault) 86.9 Glucose Level 100mg/dL (70-99) Calcium Level 8.0mg/dL (8.5-10.1) Medications Active Scripts Medications Dose Route/Sig Days Date Category Zyprexa (Olanzapine) 2.5 Mg Tablet 1 Tab PO QHS 01/15/16 Reported Tizanidine Hcl 4 Mg Tablet 4 Mg PO TID PRN 01/14/16 Reported Tramadol Hcl 50 Mg Tablet 50 Mg PO BID PRN 01/14/16 Reported Lialda (Mesalamine) 1.2 Gm Tablet.dr 4 Tab PO DAILY 01/14/16 Reported Comments cxr reviewed, s/p second chest tube no change in loculated effusion rt Impression . 1. Acute hypoxic respiratory failure, This is secondary to extensive multilobar community-acquired pneumonia/ multiloculated effusion, clinically empyema. 2. chronic obstructive pulmonary disease 3. Persistent severe leukocytosis This is probably related to underlying extensive pneumonia and sepsis./ BM aspiration 08/29 , No leukemia 4. Severe protein-calorie malnutrition with an albumin level of 1.4. 5. Lactic acidosis present on admission on 08/21/2016 at [facility] related to sepsis from pneumonia. 6. Normal ejection fraction by echo with a pulmonary artery systolic pressure of 49. Suspect this is secondary to underlying chronic obstructive pulmonary disease. 7. smoker Plan . 1. cont antibiotic per ID 2. s/p intra-pleural TPA 08/31, 09/01 another 350 cc came out from one of chest tube . ct chest reviewed. still one moderate loculated pocket with no improvement. thoracic surgery for decortication planned for monday 3. cont chest tube to suction to -30. ph, 6.9 c/w empyema, repeat 7.1 4. Bronchodilators. 5. Deep venous thrombosis prophylaxis on hold 6. Stress ulcer prophylaxis. 7. Continue BiPAP prn 8. 02 titration 9. Monitor white cell count. follow BP aspirate results 10. advised to quit smoking, 11. pain control NARCISO SUE MD Sep 03, 2016 15:08
[2016-09-03] MEDS ORDERED: FENTANYL PF 100 MCG/2 ML VIAL. IV ONE (15:30)
[2016-09-03] MEDS: DIPHENOXYLATE/ATROPINE TABLET. PO PRN (17:27)
[2016-09-03 19:00] VITALS: BP 162/82
[2016-09-03] MEDS: OLANZAPINE 2.5 MG TABLET PO SCH (20:20)
[2016-09-03] MEDS: NIACIN ER 500 MG TABLET.ER PO SCH (20:21)
[2016-09-03] MEDS: tiZANidine 4 MG TABLET. PO SCH (20:21)
[2016-09-03] MEDS: FENTANYL PF 100 MCG/2 ML VIAL. IV PRN ×2 (20:22→23:41)
[2016-09-03 23:00] VITALS: BP 129/72
[2016-09-04] MEDS: FENTANYL PF 100 MCG/2 ML VIAL. IV PRN ×10 (02:22→23:47)
[2016-09-04 03:04] VITALS: BP 108/58
[2016-09-04] MEDS: MESALAMINE 1.2 GM TABLET.DR PO SCH (05:28)
[2016-09-04] MEDS: PIPERACILLIN/TAZOBACTAM 3.375 GM in IV NORMAL SALINE 50ML 50 ML IV SCH ×4 (05:28→23:48)
[2016-09-04 06:05] LABS: BASO # 0.1 x10^3/uL (0.0-0.2); BASO % 1 % (0-3); EOS % 1 % (0-3); HEMATOCRIT 23.4 % (36.0-47.0); HEMOGLOBIN 7.8 g/dL (12.0-15.5); LYMPH # 1.1 x10^3/uL (1.0-4.8); LYMPH % 6 % (24-48); MEAN CORPUSCULAR HEMOGLOBIN 28 pg (25-35); MEAN CORPUSCULAR HGB CONC 34 g/dL (31-37); MEAN CORPUSCULAR VOLUME 83 fL (79-100); MONO % 4 % (0-9); NEUT % 87 % (31-73); PLATELET COUNT 536 x10^3/uL (140-400); RED BLOOD COUNT 2.83 x10^6/uL (3.50-5.40); RED CELL DISTRIBUTION WIDTH 14.6 % (11.5-14.5); WHITE BLOOD COUNT 16.8 x10^3/uL (4.0-11.0)
[2016-09-04 06:26] LABS: CALCIUM 8.4 mg/dL (8.5-10.1); CREATININE 0.7 mg/dL (0.6-1.0); GFR 86.9; POTASSIUM 4.1 mmol/L (3.5-5.1)
[2016-09-04 07:00] VITALS: BP 115/64
[2016-09-04] MEDS: ALBUTEROL SULFATE 2.5 MG/3 ML NEBU. NEB SCH ×4 (07:49→21:37)
[2016-09-04] MEDS: ASCORBIC ACID 500 MG TABLET PO SCH (07:52)
[2016-09-04] MEDS: CETIRIZINE HCL 10 MG TABLET PO SCH (07:53)
[2016-09-04] MEDS: CHOLECALCIFEROL (VITAMIN D3) 1,000 UNIT TABLET PO SCH (07:53)
[2016-09-04] MEDS: PANTOPRAZOLE 40 MG TABLET. PO SCH (07:53)
[2016-09-04] MEDS: LIPASE/PROTEAS/AMYLASE 5/17/27 CAPSULE.DR. PO SCH ×3 (07:53→17:25)
[2016-09-04] MEDS: LACTOBACILLUS ACIDOPH & BULGAR 1 TABLET. PO SCH ×3 (07:53→17:25)
[2016-09-04 08:20] LABS: PLT ESTIMATE INCREASED (ADEQUATE)
[2016-09-04 10:25] VITALS: BP 122/72
[2016-09-04] MEDS: SUMATRIPTAN SUCCINATE 100 MG TABLET. PO PRN (13:31)
--- NOTE | 2016-09-04 14:23 | PDOC ---
PROGRESS NOTES Chief Complaint Chief Complaint Acute hypoxic respiratory failure ASSESSMENT AND PLAN: 1. PNA: multilobar. on broad spectrum coverage (zosyn, linezolid) 2. Empyema: loculated, now double CT in place, TPA administered in both . unfortunately, 3rd fluid pocket present. consult to CT surg for decortication 3. COPD exacerbation: resolving 4. Sepsis: resolved 5. Leukocytosis with severe left shift: continues to improve. leukemoid rxn from infect, confirmed by BM bx obtained 08/29. 6. HTN, tachycardia: recurrent, after several days of soft Bp and low HR. tolerating tachycardia for now. restart BB if persistent. 7. BP at low normal, prob influenced by IV narcotics. IVF boluses PRN 8. UC: on mesalamine, pancreatic enzymes, macrobiotics 9. Depression: on zyprexa 10. Smoker: nicotine patch 11. Migraine: imitrex PRN 12. chest pain: musculoskeletal w/ CT: fentanyl, Oxy PO PRN 13. Prophylaxis: lovenox, PPI 14. Dispo: no acute plans for D/C with ongoing interventions w/ empyema. will prob need SNF rather than LTAC at D/C History of Present Illness History of Present Illness Pt seen and examined RN present Pt appears SOA and a little tachypnic Still with double Chest tubes on the Right Co pain VSS On O2 Vitals Vitals Vital Signs Date Time Temp Pulse Resp B/P Pulse Ox O2 Delivery O2 Flow Rate FiO2 09/04/16 13:05 20 Nasal Cannula 2.0 09/04/16 10:25 98.4 88 122/72 97 98.4 Physical Exam General: Alert, Oriented X3, Cooperative, No acute distress Heart: Regular rate, Normal S1, Normal S2 Lungs: Other (decrease bs right, crackles with 2 CTs) Abdomen: Normal bowel sounds, Soft, No tenderness Extremities: No clubbing, No cyanosis, No edema Skin: No significant lesion Labs LABS Laboratory Tests Test 09/04/16 05:45 White Blood Count 16.8x10^3/uL (4.0-11.0) Red Blood Count 2.83x10^6/uL (3.50-5.40) Hemoglobin 7.8g/dL (12.0-15.5) Hematocrit 23.4% (36.0-47.0) Mean Corpuscular Volume 83fL (79-100) Mean Corpuscular Hemoglobin 28pg (25-35) Mean Corpuscular Hemoglobin Concent 34g/dL (31-37) Red Cell Distribution Width 14.6% (11.5-14.5) Platelet Count 536x10^3/uL (140-400) Neutrophils (%) (Auto) 87% (31-73) Lymphocytes (%) (Auto) 6% (24-48) Monocytes (%) (Auto) 4% (0-9) Eosinophils (%) (Auto) 1% (0-3) Basophils (%) (Auto) 1% (0-3) Neutrophils # (Auto) 14.7x10^3uL (1.8-7.7) Lymphocytes # (Auto) 1.1x10^3/uL (1.0-4.8) Monocytes # (Auto) 0.7x10^3/uL (0.0-1.1) Eosinophils # (Auto) 0.2x10^3/uL (0.0-0.7) Basophils # (Auto) 0.1x10^3/uL (0.0-0.2) Segmented Neutrophils % 85% (35-66) Band Neutrophils % 3% (0-9) Lymphocytes % 7% (24-48) Atypical Lymphocytes % (Manual) 1% (0-0) Monocytes % 4% (0-10) Platelet Estimate Increased (ADEQUATE) Sodium Level 136mmol/L (136-145) Potassium Level 4.1mmol/L (3.5-5.1) Chloride Level 101mmol/L (98-107) Carbon Dioxide Level 29mmol/L (21-32) Anion Gap 6 (6-14) Blood Urea Nitrogen 6mg/dL (7-20) Creatinine 0.7mg/dL (0.6-1.0) Estimated GFR (Cockcroft-Gault) 86.9 Glucose Level 91mg/dL (70-99) Calcium Level 8.4mg/dL (8.5-10.1) Review of Systems Review of Systems co soa co weakness Assessment and Plan Assessmemt and Plan Problems Medical Problems: (1) CAP (community acquired pneumonia) Status: Acute (2) Empyema of lung Status: Acute ASSESSMENT AND PLAN: 1. PNA: multilobar. on broad spectrum coverage (zosyn, linezolid) 2. Empyema: loculated, now double CT in place, TPA administered in both . unfortunately, 3rd fluid pocket present. consult to CT surg for decortication next week 3. COPD exacerbation: resolving 4. Sepsis: resolved 5. Leukocytosis with severe left shift: continues to improve. leukemoid rxn from infect, confirmed by BM bx obtained 08/29. 6. HTN, tachycardia: recurrent, after several days of soft Bp and low HR. tolerating tachycardia for now. restart BB if persistent. 7. BP at low normal, prob influenced by IV narcotics. IVF boluses PRN 8. UC: on mesalamine, pancreatic enzymes, macrobiotics 9. Depression: on zyprexa 10. Smoker: nicotine patch 11. Migraine: imitrex PRN 12. chest pain: musculoskeletal w/ CT: fentanyl, Oxy PO PRN 13. Prophylaxis: lovenox, PPI 14. Dispo: no acute plans for D/C with ongoing interventions w/ empyema. will prob need SNF rather than LTAC at D/C Problems: Comment Review of Relevant I have reviewed the following items randi (where applicable) has been applied. Labs Laboratory Tests Test 09/03/16 06:15 09/04/16 05:45 White Blood Count 16.0x10^3/uL (4.0-11.0) 16.8x10^3/uL (4.0-11.0) Red Blood Count 2.56x10^6/uL (3.50-5.40) 2.83x10^6/uL (3.50-5.40) Hemoglobin 7.0g/dL (12.0-15.5) 7.8g/dL (12.0-15.5) Hematocrit 21.6% (36.0-47.0) 23.4% (36.0-47.0) Mean Corpuscular Volume 85fL (79-100) 83fL (79-100) Mean Corpuscular Hemoglobin 27pg (25-35) 28pg (25-35) Mean Corpuscular Hemoglobin Concent 32g/dL (31-37) 34g/dL (31-37) Red Cell Distribution Width 14.9% (11.5-14.5) 14.6% (11.5-14.5) Platelet Count 490x10^3/uL (140-400) 536x10^3/uL (140-400) Neutrophils (%) (Auto) 87% (31-73) 87% (31-73) Lymphocytes (%) (Auto) 6% (24-48) 6% (24-48) Monocytes (%) (Auto) 5% (0-9) 4% (0-9) Eosinophils (%) (Auto) 1% (0-3) 1% (0-3) Basophils (%) (Auto) 1% (0-3) 1% (0-3) Neutrophils # (Auto) 13.9x10^3uL (1.8-7.7) 14.7x10^3uL (1.8-7.7) Lymphocytes # (Auto) 1.0x10^3/uL (1.0-4.8) 1.1x10^3/uL (1.0-4.8) Monocytes # (Auto) 0.7x10^3/uL (0.0-1.1) 0.7x10^3/uL (0.0-1.1) Eosinophils # (Auto) 0.2x10^3/uL (0.0-0.7) 0.2x10^3/uL (0.0-0.7) Basophils # (Auto) 0.1x10^3/uL (0.0-0.2) 0.1x10^3/uL (0.0-0.2) Prothrombin Time 15.0SEC (11.7-14.0) Prothromb Time International Ratio 1.3 (0.8-1.1) Activated Partial Thromboplast Time 36SEC (24-38) Sodium Level 136mmol/L (136-145) 136mmol/L (136-145) Potassium Level 3.8mmol/L (3.5-5.1) 4.1mmol/L (3.5-5.1) Chloride Level 103mmol/L (98-107) 101mmol/L (98-107) Carbon Dioxide Level 25mmol/L (21-32) 29mmol/L (21-32) Anion Gap 8 (6-14) 6 (6-14) Blood Urea Nitrogen 6mg/dL (7-20) 6mg/dL (7-20) Creatinine 0.7mg/dL (0.6-1.0) 0.7mg/dL (0.6-1.0) Estimated GFR (Cockcroft-Gault) 86.9 86.9 Glucose Level 100mg/dL (70-99) 91mg/dL (70-99) Calcium Level 8.0mg/dL (8.5-10.1) 8.4mg/dL (8.5-10.1) Segmented Neutrophils % 85% (35-66) Band Neutrophils % 3% (0-9) Lymphocytes % 7% (24-48) Atypical Lymphocytes % (Manual) 1% (0-0) Monocytes % 4% (0-10) Platelet Estimate Increased (ADEQUATE) Laboratory Tests Test 09/04/16 05:45 White Blood Count 16.8x10^3/uL (4.0-11.0) Red Blood Count 2.83x10^6/uL (3.50-5.40) Hemoglobin 7.8g/dL (12.0-15.5) Hematocrit 23.4% (36.0-47.0) Mean Corpuscular Volume 83fL (79-100) Mean Corpuscular Hemoglobin 28pg (25-35) Mean Corpuscular Hemoglobin Concent 34g/dL (31-37) Red Cell Distribution Width 14.6% (11.5-14.5) Platelet Count 536x10^3/uL (140-400) Neutrophils (%) (Auto) 87% (31-73) Lymphocytes (%) (Auto) 6% (24-48) Monocytes (%) (Auto) 4% (0-9) Eosinophils (%) (Auto) 1% (0-3) Basophils (%) (Auto) 1% (0-3) Neutrophils # (Auto) 14.7x10^3uL (1.8-7.7) Lymphocytes # (Auto) 1.1x10^3/uL (1.0-4.8) Monocytes # (Auto) 0.7x10^3/uL (0.0-1.1) Eosinophils # (Auto) 0.2x10^3/uL (0.0-0.7) Basophils # (Auto) 0.1x10^3/uL (0.0-0.2) Segmented Neutrophils % 85% (35-66) Band Neutrophils % 3% (0-9) Lymphocytes % 7% (24-48) Atypical Lymphocytes % (Manual) 1% (0-0) Monocytes % 4% (0-10) Platelet Estimate Increased (ADEQUATE) Sodium Level 136mmol/L (136-145) Potassium Level 4.1mmol/L (3.5-5.1) Chloride Level 101mmol/L (98-107) Carbon Dioxide Level 29mmol/L (21-32) Anion Gap 6 (6-14) Blood Urea Nitrogen 6mg/dL (7-20) Creatinine 0.7mg/dL (0.6-1.0) Estimated GFR (Cockcroft-Gault) 86.9 Glucose Level 91mg/dL (70-99) Calcium Level 8.4mg/dL (8.5-10.1) Microbiology 08/25/16 Anaerobic/Aerobic Culture - Final, Resulted 08/25/16 Anaerobic Culture Result 1 (BRUCE) - Preliminary, Resulted 08/25/16 Aerobic Culture - Final, Resulted 08/25/16 Aerobic Culture Result 1 (BRUCE) - Final, Resulted Medications Current Medications Acetaminophen (Tylenol) 325 mg PRN Q6HRS PRN PO MILD PAIN / TEMP Last administered on 08/26/16 08:29; Start 08/25/16 at 12:45 Acetaminophen/ Hydrocodone Bitart (Lortab 5/325) 1 tab PRN Q6HRS PRN PO MODERATE PAIN Last administered on 08/27/16 02:06; Start 08/25/16 at 12:45; Stop 08/29/16 at 16:41; Status DC Hydralazine HCl (Apresoline) 10 mg PRN Q4HRS PRN IVP ELEVATED BP, SEE COMMENTS Last administered on 08/26/16 05:07; Start 08/25/16 at 12:45 Ondansetron HCl (Zofran) 4 mg PRN Q8HRS PRN IV NAUSEA/VOMITING Last administered on 08/25/16 15:42; Start 08/25/16 at 12:45; Stop 08/27/16 at 08:44 ; Status DC Albuterol Sulfate 2.5 mg 2.5 mg PRN Q4HRS PRN NEB SHORTNESS OF BREATH; Start at 12:45 Piperacillin Sod/ Tazobactam Sod 3.375 gm/Sodium Chloride 50 ml @ 100 mls/hr Q6HRS IV Last administered on 09/04/16 12:31; Start 08/25/16 at 13:00 Linezolid (Zyvox Premix) 300 ml @ 300 mls/hr Q12HR IV Last administered on 09:28; Start 08/25/16 at 14:00 Piperacillin Sod/ Tazobactam Sod 1 each 1 each PRN DAILY PRN MC SEE COMMENTS; Start 08/25/16 at 13:45; Stop 08/27/16 at 12:41; Status DC Levofloxacin/ Dextrose (LEVAQUIN 750mg PREMIX) 150 ml @ 100 mls/hr Q24H IV Last administered on 08/28/16 13:51; Start 08/25/16 at 14:00; Stop 08/28/16 at 14:37; Status DC Lidocaine/Sodium Bicarbonate (Buffered Lidocaine 1%) 20 ml STK-MED ONCE IJ ; Start 08/25/16 at 14:00; Stop 08/25/16 at 14:01; Status DC Lidocaine/Sodium Bicarbonate (Buffered Lidocaine 1%) 5 ml 1X ONCE IJ Last administered on 08/25/16 14:59; Start 08/25/16 at 15:00; Stop 08/25/16 at 15:01 ; Status DC Info (Do NOT chart on this placeholder) 1 each 1X ONCE MC ; Start 08/25/16 at 17:00; Stop 08/25/16 at 17:01; Status UNV Pneumococcal Polyvalent Vaccine (Do NOT chart on this placeholder) 1 each 1X ONCE MC ; Start 08/25/16 at 17:00; Stop 08/25/16 at 17:01; Status UNV Influenza Virus Vaccine Quadrival (Fluarix Quad [id number] Syringe) 0.5 ml ONCE ONCE VAX IM ; Start 08/26/16 at 09:00; Stop 08/26/16 at 09:01; Status DC Pneumococcal Polyvalent Vaccine (Pneumovax 23) 0.5 ml ONCE ONCE VAX IM ; Start 08/26/16 at 09:00; Stop 08/26/16 at 09:01; Status DC Enoxaparin Sodium (Lovenox 40mg Syringe) 40 mg Q24H SQ Last administered on 08:19; Start 08/26/16 at 09:00; Stop 08/29/16 at 11:45; Status DC Fentanyl Citrate (Fentanyl 2ml Vial) 25 mcg PRN Q4HRS PRN IV PAIN Last administered on 08/27/16 06:13; Start 08/26/16 at 08:30; Stop 08/29/16 at 15:07 ; Status DC Potassium Chloride (Klor-Con) 40 meq 1X ONCE PO Last administered on 11:24; Start 08/26/16 at 10:45; Stop 08/26/16 at 10:49; Status DC Mesalamine (Lialda) 4.8 gm DAILY06 PO Last administered on 09/04/16 05:28; Start 08/26/16 at 13:30 Olanzapine (Zyprexa) 2.5 mg HS PO Last administered on 09/03/16 20:20; Start 08/26/16 at 21:00 Sumatriptan Succinate (Imitrex) 100 mg PRN Q2HR PRN PO MIGRAINE HEADACHE Last administered on 09/04/16 13:31; Start 08/26/16 at 13:30 Tizanidine HCl (Zanaflex) 4 mg QHS PO Last administered on 08/26/16 19:57; Start 08/26/16 at 21:00; Stop 08/26/16 at 21:00; Status DC Tramadol HCl (Ultram) 50 mg BID PO Last administered on 08/31/16 07:48; Start 08/26/16 at 14:00; Stop 08/31/16 at 15:54; Status DC Ascorbic Acid (Vitamin C) 1,000 mg DAILY PO Last administered on 09/04/16 07: 52; Start 08/27/16 at 09:00 Amylase/Lipase/ Protease (Zenpep 5,000) 5 cap TIDWMEALS PO Last administered on 09/04/16 12:31; Start 08/26/16 at 17:00 Niacin (Slo-Niacin) 500 mg QHS PO Last administered on 09/03/16 20:21; Start 08/26/16 at 21:00 Pantoprazole Sodium (Protonix) 40 mg DAILYAC PO Last administered on 09/04/16 07:53; Start 08/26/16 at 14:00 Non-Formulary Medication 1 tab DAILY PO ; Start 08/27/16 at 09:00; Status UNV Diphenoxylate HCl/ Atropine (Lomotil) 1 tab PRN QID PRN PO DIARRHEA Last administered on 09/03/16 17:27; Start 08/26/16 at 13:45 Tizanidine HCl (Zanaflex) 20 mg QHS PO Last administered on 09/03/16 20:21; Start 08/26/16 at 21:00 Acetaminophen/ Hydrocodone Bitart (Lortab 5/325) 2 tab PRN Q6HRS PRN PO SEVERE PAIN Last administered on 08/29/16 10:47; Start 08/27/16 at 04:45; Stop at 16:41; Status DC Ondansetron HCl (Zofran) 4 mg PRN Q6HRS PRN IV NAUSEA/VOMITING; Start 08/27/16 at 08:42 Vancomycin HCl 125 mg [id number] PO Last administered on 08/28/16 20:54; Start at 16:00; Stop 08/29/16 at 10:24; Status DC Lactobacillus Acidophilus 1 tab 1 tab TIDWMEALS PO Last administered on 12:31; Start 08/27/16 at 17:00 Sodium Chloride (Iv Sodium Chloride 0.9% 500ml Bag) 500 ml @ 500 mls/hr 1X ONCE IV Last administered on 08/28/16 00:52; Start 08/28/16 at 01:00; Stop at 01:59; Status DC Nicotine (Nicoderm Cq 21mg) 1 patch PRN DAILY PRN TD SMOKING CESSATION; Start 08/28/16 at 09:30 Cetirizine HCl (Zyrtec) 10 mg DAILY PO Last administered on 09/04/16 07:53; Start 08/28/16 at 10:00 Vitamin D (Vitamin D3) 1,000 unit DAILY PO Last administered on 09/04/16 07:53 ; Start 08/28/16 at 10:00 Iohexol (Omnipaque 300 Mg/ml) 75 ml 1X ONCE IV Last administered on 08/28/16 10:53; Start 08/28/16 at 10:15; Stop 08/28/16 at 10:16; Status DC Info (Do NOT chart on this entry -- for MONITORING) 1 each PRN DAILY PRN MC SEE COMMENTS; Start 08/28/16 at 10:00; Stop 08/30/16 at 09:59; Status DC Potassium Chloride (Klor-Con) 40 meq 1X ONCE PO Last administered on 13:52; Start 08/28/16 at 13:00; Stop 08/28/16 at 13:01; Status DC Lidocaine/Sodium Bicarbonate (Buffered Lidocaine 1%) 20 ml STK-MED ONCE IJ ; Start 08/29/16 at 08:36; Stop 08/29/16 at 08:37; Status DC Naloxone HCl (Narcan) 0.4 mg STK-MED ONCE .ROUTE ; Start 08/29/16 at 08:37; Stop 08/29/16 at 08:38; Status DC Flumazenil (Romazicon) 0.5 mg STK-MED ONCE IV ; Start 08/29/16 at 08:37; Stop at 08:38; Status DC Midazolam HCl (Versed) 5 mg STK-MED ONCE .ROUTE ; Start 08/29/16 at 08:37; Stop 08/29/16 at 08:38; Status DC Fentanyl Citrate (Fentanyl 5ml Vial) 250 mcg STK-MED ONCE .ROUTE ; Start at 08:37; Stop 08/29/16 at 08:38; Status DC Lidocaine/Sodium Bicarbonate (Buffered Lidocaine 1%) 6 ml 1X ONCE IJ Last administered on 08/29/16 09:09; Start 08/29/16 at 09:15; Stop 08/29/16 at 09:16 ; Status DC Midazolam HCl (Versed) 2 mg 1X ONCE IV Last administered on 08/29/16 09:08; Start 08/29/16 at 09:15; Stop 08/29/16 at 09:16; Status DC Fentanyl Citrate (Fentanyl 5ml Vial) 100 mcg 1X ONCE IV Last administered on 09:08; Start 08/29/16 at 09:15; Stop 08/29/16 at 09:16; Status DC Enoxaparin Sodium (Lovenox 40mg Syringe) 40 mg Q24H SQ Last administered on 16:01; Start 08/29/16 at 16:00; Stop 08/31/16 at 10:23; Status DC Acetaminophen/ Hydrocodone Bitart (Lortab 5/325) 1 tab PRN Q4HRS PRN PO MODERATE PAIN; Start 08/29/16 at 16:45; Stop 08/31/16 at 15:54; Status DC Acetaminophen/ Hydrocodone Bitart (Lortab 5/325) 2 tab PRN Q4HRS PRN PO SEVERE PAIN Last administered on 08/31/16 15:14; Start 08/29/16 at 16:45; Stop at 15:54; Status DC Lidocaine/Sodium Bicarbonate (Buffered Lidocaine 1%) 20 ml STK-MED ONCE IJ ; Start 08/30/16 at 13:57; Stop 08/30/16 at 13:58; Status DC Midazolam HCl (Versed) 2 mg STK-MED ONCE .ROUTE ; Start 08/30/16 at 14:22; Stop 08/30/16 at 14:23; Status DC Fentanyl Citrate (Fentanyl 2ml Vial) 100 mcg STK-MED ONCE .ROUTE ; Start at 14:22; Stop 08/30/16 at 14:23; Status DC Lidocaine/Sodium Bicarbonate (Buffered Lidocaine 1%) 4 ml 1X ONCE IJ Last administered on 08/30/16 15:08; Start 08/30/16 at 14:50; Stop 08/30/16 at 15:04 ; Status DC Midazolam HCl (Versed) 1 mg 1X ONCE IV Last administered on 08/30/16 15:09; Start 08/30/16 at 14:45; Stop 08/30/16 at 15:04; Status DC Fentanyl Citrate (Fentanyl 2ml Vial) 50 mcg 1X ONCE IV Last administered on 15:09; Start 08/30/16 at 14:45; Stop 08/30/16 at 15:05; Status DC Metoprolol Tartrate 25 mg 25 mg BID PO Last administered on 08/30/16 21:44; Start 08/30/16 at 21:00; Stop 08/31/16 at 17:09; Status DC Alteplase, Recombinant 5 mg/ Sterile Water 50 ml @ 5 mls/hr 1X ONCE IV ; Start 08/31/16 at 10:30; Stop 08/31/16 at 15:27; Status DC Alteplase, Recombinant 5 mg/ Sterile Water 50 ml @ 5 mls/hr 1X ONCE IV ; Start 08/31/16 at 10:45; Stop 08/31/16 at 15:27; Status DC Alteplase, Recombinant 5 mg/ Sterile Water 50 ml @ 5 mls/hr 1X ONCE INT CAT Last administered on 08/31/16 12:40; Start 08/31/16 at 15:27; Stop 08/31/16 at 20:29; Status DC Alteplase, Recombinant/ Sterile Water (Cathflo) 50 ml @ 5 mls/hr 1X ONCE INT CAT Last administered on 08/31/16 12:40; Start 08/31/16 at 15:27; Stop at 20:44; Status DC Oxycodone HCl (Roxicodone) 5 mg PRN Q3HRS PRN PO MILD-MOD PAIN Last administered on 09/03/16 00:49; Start 08/31/16 at 16:00 Morphine Sulfate 2 mg PRN Q6HRS PRN IV PAIN; Start 08/31/16 at 16:00; Stop at 18:07; Status DC Oxycodone HCl (Roxicodone) 10 mg PRN Q3HRS PRN PO SEVERE PAIN Last administered on 09/03/16 18:00; Start 08/31/16 at 16:00 Fentanyl Citrate (Fentanyl 2ml Vial) 50 mcg PRN Q2HR PRN IV PAIN SEV Last administered on 09/04/16 12:36; Start 08/31/16 at 18:15 Morphine Sulfate 2 mg 2 mg ONCE ONCE IV Last administered on 08/31/16 18:05; Start 08/31/16 at 20:45; Stop 08/31/16 at 20:46; Status DC Sodium Chloride (Iv Sodium Chloride 0.9% 500ml Bag) 500 ml @ 500 mls/hr 1X ONCE IV Last administered on 09/01/16 06:30; Start 09/01/16 at 06:30; Stop at 07:29; Status DC Alteplase, Recombinant (Cathflo) 2 mg 1X ONCE INT CAT Last administered on 06:35; Start 09/01/16 at 07:00; Stop 09/01/16 at 07:01; Status DC Albuterol Sulfate 2.5 mg 2.5 mg RTQID NEB Last administered on 09/04/16 11:10 ; Start 09/01/16 at 12:00 Sodium Chloride 1,000 ml @ 1,000 mls/hr 1X ONCE IV Last administered on 12:09; Start 09/01/16 at 11:45; Stop 09/01/16 at 12:44; Status DC Alteplase, Recombinant 5 mg/ Sterile Water 50 ml @ 5 mls/hr 1X ONCE INT CAT Last administered on 09/01/16 12:30; Start 09/01/16 at 12:30; Stop 09/01/16 at 22:29; Status DC Alteplase, Recombinant/ Sterile Water (Cathflo) 50 ml @ 5 mls/hr 1X ONCE INT CAT Last administered on 09/01/16 12:30; Start 09/01/16 at 12:30; Stop at 22:29; Status DC Alteplase, Recombinant 2 mg 2 mg 1X ONCE INT CAT Last administered on 15:18; Start 09/01/16 at 13:00; Stop 09/01/16 at 13:01; Status DC Sodium Chloride (Iv Sodium Chloride 0.9% 1000ml Bag) 1,000 ml @ 1,000 mls/hr 1X ONCE IV Last administered on 09/01/16 23:45; Start 09/01/16 at 23:45; Stop 09/02/16 at 00:44; Status DC Fentanyl Citrate (Fentanyl 2ml Vial) 50 mcg 1X ONCE IV Last administered on 15:30; Start 09/03/16 at 15:30; Stop 09/03/16 at 15:35; Status DC Active Scripts Active Reported [diphen/atropine] 2.5 Mg PO PRN QID PRN Prilosec Otc (Omeprazole Magnesium) 20 Mg Tablet. 1 Tab PO DAILY Lialda (Mesalamine) 1.2 Gm Tablet. 4 Tab PO DAILY06 Tizanidine Hcl 4 Mg Tablet 5 Tab PO QHS Olanzapine 2.5 Mg Tablet 2.5 Mg PO HS Zyrtec (Cetirizine Hcl) 10 Mg Capsule 10 Mg PO DAILY Dhea 50 Mg Tablet (Prasterone (Dhea)/Calcium Carb) 1 Each Tablet 1 Tab PO DAILY Niacin 500 Mg Tablet 500 Mg PO HS Vitamin D3 (Cholecalciferol (Vitamin D3)) 1,000 Unit Capsule 1,000 Unit PO DAILY Vitamin C (Ascorbic Acid) 1,000 Mg Tab.chew 1,000 Mg PO DAILY Imitrex (Sumatriptan Succinate) 100 Mg Tablet 100 Mg PO ONCE PRN Tramadol Hcl 50 Mg Tablet 4 Tab PO BID Zenpep Dr 25,000 Units Capsule (Lipase/Protease/Amylase) 1 Each Capsule.dr 1 Each PO TIDAFTMEAL Vitals/I & O Vital Sign - Last 24 Hours 09/03/16 09/03/16 09/03/16 09/03/16 14:54 15:18 15:30 16:00 Temp 98.2 98.2 Pulse 112 Resp 18 18 20 18 B/P 113/75 Pulse Ox 98 O2 Delivery Room Air Nasal Cannula Nasal Cannula Nasal Cannula O2 Flow Rate 2.0 2.0 09/03/16 09/03/16 09/03/16 09/03/16 16:03 16:08 18:00 19:00 Resp 18 20 Pulse Ox 99 96 O2 Delivery Nasal Cannula Nasal Cannula Nasal Cannula O2 Flow Rate 1.0 2.0 09/03/16 09/03/16 09/03/16 09/03/16 19:00 20:00 20:19 20:22 Temp 98.4 98.4 Pulse 113 Resp 20 B/P 162/82 Pulse Ox 96 94 94 O2 Delivery Nasal Cannula Nasal Cannula Nasal Cannula Nasal Cannula O2 Flow Rate 2.0 1.0 1.0 09/03/16 09/03/16 09/04/16 09/04/16 23:00 23:41 02:22 03:04 Temp 98.2 98.8 98.2 98.8 Pulse 107 94 Resp 20 20 B/P 129/72 108/58 Pulse Ox 97 97 97 97 O2 Delivery Nasal Cannula Nasal Cannula Nasal Cannula Nasal Cannula O2 Flow Rate 1.0 1.0 09/04/16 09/04/16 09/04/16 09/04/16 05:29 05:59 07:00 07:50 Temp 99.0 99.0 Pulse 95 Resp 16 B/P 115/64 Pulse Ox 97 97 97 97 O2 Delivery Nasal Cannula Nasal Cannula Nasal Cannula O2 Flow Rate 1.0 1.0 09/04/16 09/04/16 09/04/16 09/04/16 08:00 08:12 10:25 10:25 Temp 98.4 98.4 Pulse 88 Resp 24 24 16 B/P 122/72 Pulse Ox 97 O2 Delivery Nasal Cannula Nasal Cannula Nasal Cannula Nasal Cannula O2 Flow Rate 2.0 2.0 2.0 09/04/16 09/04/16 09/04/16 11:11 12:36 13:05 Resp 18 20 O2 Delivery Nasal Cannula Nasal Cannula Nasal Cannula O2 Flow Rate 1.0 2.0 2.0 Intake and Output 09/03/16 09/03/16 09/04/16 15:00 23:00 07:00 Intake Total 350 ml 1200 ml 350 ml Output Total 2210 ml 2455 ml Balance 350 ml -1010 ml -2105 ml SIGIFREDO TORRES III DO Sep 04, 2016 14:23
[2016-09-04 14:31] VITALS: BP 156/85
--- NOTE | 2016-09-04 16:50 | PDOC ---
Infectious Disease Note Subjective Subjective Feeling alright Diarrhea controlled ROS ROS GEN: Denies fevers, chills, sweats CV: Denies chest pain RESP: Denies shortness of air GI: Denies n/v Vital Sign Vital Signs Vital Signs Date Time Temp Pulse Resp B/P Pulse Ox O2 Delivery O2 Flow Rate FiO2 09/04/16 16:34 18 Nasal Cannula 2.0 09/04/16 14:31 98.1 112 156/85 97 98.1 Physical Exam PHYSICAL EXAM GENERAL: Propped up in bed, Alert, NAD HEENT: OC/OP clear NECK: Diminished aeration bases. Nonlabored. Right-sided CT x 2. LUNGS: Clear HEART: S1S2, no gallop, no murmur ABD: BS present, soft, NT EXT: No edema, no cyanosis MEDIA EXECUTIVE: Alert, oriented x 3, no focal neurologic deficit SKIN: No rash RUE-PICC. clean Labs Lab Laboratory Tests Test 09/04/16 05:45 White Blood Count 16.8x10^3/uL (4.0-11.0) Red Blood Count 2.83x10^6/uL (3.50-5.40) Hemoglobin 7.8g/dL (12.0-15.5) Hematocrit 23.4% (36.0-47.0) Mean Corpuscular Volume 83fL (79-100) Mean Corpuscular Hemoglobin 28pg (25-35) Mean Corpuscular Hemoglobin Concent 34g/dL (31-37) Red Cell Distribution Width 14.6% (11.5-14.5) Platelet Count 536x10^3/uL (140-400) Neutrophils (%) (Auto) 87% (31-73) Lymphocytes (%) (Auto) 6% (24-48) Monocytes (%) (Auto) 4% (0-9) Eosinophils (%) (Auto) 1% (0-3) Basophils (%) (Auto) 1% (0-3) Neutrophils # (Auto) 14.7x10^3uL (1.8-7.7) Lymphocytes # (Auto) 1.1x10^3/uL (1.0-4.8) Monocytes # (Auto) 0.7x10^3/uL (0.0-1.1) Eosinophils # (Auto) 0.2x10^3/uL (0.0-0.7) Basophils # (Auto) 0.1x10^3/uL (0.0-0.2) Segmented Neutrophils % 85% (35-66) Band Neutrophils % 3% (0-9) Lymphocytes % 7% (24-48) Atypical Lymphocytes % (Manual) 1% (0-0) Monocytes % 4% (0-10) Platelet Estimate Increased (ADEQUATE) Sodium Level 136mmol/L (136-145) Potassium Level 4.1mmol/L (3.5-5.1) Chloride Level 101mmol/L (98-107) Carbon Dioxide Level 29mmol/L (21-32) Anion Gap 6 (6-14) Blood Urea Nitrogen 6mg/dL (7-20) Creatinine 0.7mg/dL (0.6-1.0) Estimated GFR (Cockcroft-Gault) 86.9 Glucose Level 91mg/dL (70-99) Calcium Level 8.4mg/dL (8.5-10.1) Objective Assessment Diarrhea - chronic problem at home - better. C-diff neg S/p Bone marrow 08/29. negative malignant cells CAP Right empyema. s/p chest tube placement, 08/25 and 08/30 - pH 7.1. Cults neg Leukocytosis, better Fever. better Sepsis with lactic acidosis Suspected COPD Hypoxia H/o C-diff Plan Plan of Care Continue Zyvox and Zosyn for now Cont probiotics Monitor labs Right VATS, drainage of empyema and pulmonary decortication on September 05 Patient seen and examined. Chart reviewed. Case discussed with REGISTERED NURSE RENAL. Agree with above plan RUSSEL ISRAEL APRN Sep 04, 2016 16:50 GERARDO ZAMBRANO MD Sep 04, 2016 16:51
[2016-09-04 19:00] VITALS: BP 156/93
[2016-09-04] MEDS: NIACIN ER 500 MG TABLET.ER PO SCH (20:53)
[2016-09-04] MEDS: tiZANidine 4 MG TABLET. PO SCH (20:53)
[2016-09-04] MEDS: OLANZAPINE 2.5 MG TABLET PO SCH (20:53)
[2016-09-04 23:00] VITALS: BP 102/60
[2016-09-05] VITALS (11 sets, daily range): BP systolic 84–153; BP diastolic 50–70
[2016-09-05] MEDS: FENTANYL PF 100 MCG/2 ML VIAL. IV PRN ×6 (02:41→22:02)
[2016-09-05] MEDS: PIPERACILLIN/TAZOBACTAM 3.375 GM in IV NORMAL SALINE 50ML 50 ML IV SCH ×3 (05:20→22:02)
[2016-09-05] MEDS: MESALAMINE 1.2 GM TABLET.DR PO SCH (05:21)
[2016-09-05 05:57] LABS: BASO # 0.1 x10^3/uL (0.0-0.2); BASO % 1 % (0-3); EOS % 2 % (0-3); HEMATOCRIT 22.7 % (36.0-47.0); HEMOGLOBIN 7.4 g/dL (12.0-15.5); LYMPH # 0.9 x10^3/uL (1.0-4.8); LYMPH % 7 % (24-48); MEAN CORPUSCULAR HEMOGLOBIN 28 pg (25-35); MEAN CORPUSCULAR HGB CONC 33 g/dL (31-37); MEAN CORPUSCULAR VOLUME 85 fL (79-100); MONO % 5 % (0-9); NEUT % 86 % (31-73); PLATELET COUNT 466 x10^3/uL (140-400); RED BLOOD COUNT 2.67 x10^6/uL (3.50-5.40); WHITE BLOOD COUNT 14.2 x10^3/uL (4.0-11.0)
[2016-09-05 06:34] LABS: CALCIUM 8.1 mg/dL (8.5-10.1); CREATININE 0.7 mg/dL (0.6-1.0); GFR 86.9; POTASSIUM 4.3 mmol/L (3.5-5.1)
[2016-09-05] MEDS: PANTOPRAZOLE 40 MG TABLET. PO SCH (07:30)
[2016-09-05] MEDS: ALBUTEROL SULFATE 2.5 MG/3 ML NEBU. NEB SCH ×4 (07:42→19:38)
[2016-09-05] MEDS: LACTOBACILLUS ACIDOPH & BULGAR 1 TABLET. PO SCH ×3 (08:00→17:00)
[2016-09-05] MEDS: LIPASE/PROTEAS/AMYLASE 5/17/27 CAPSULE.DR. PO SCH ×3 (08:00→17:00)
[2016-09-05] MEDS: ASCORBIC ACID 500 MG TABLET PO SCH (09:00)
[2016-09-05] MEDS: CETIRIZINE HCL 10 MG TABLET PO SCH (09:00)
[2016-09-05] MEDS: CHOLECALCIFEROL (VITAMIN D3) 1,000 UNIT TABLET PO SCH (09:00)
--- NOTE | 2016-09-05 09:01 | PDOC ---
Provider Note Provider Note DATE OF f/u: 09/05/2016 c/c: Leukocytosis with 1% blasts in a patient with pneumonia. HISTORY OF PRESENT ILLNESS: The patient is a 55-year-old female who presented to [facility] Emergency Room 08/21/2016 with complaints of worsening cough and pleuritic chest pain and dyspnea of one week duration. In the Emergency Room, she was noted to have tachycardia and elevated WBC count of 57,000 and lactic acid of 4.1. She was diagnosed with sepsis. She underwent a chest x-ray that revealed right lower lobe pneumonia with small pneumonic effusion. She underwent CT scan of the abdomen on 08/21/2016 that revealed right lower lobe pneumonia. She underwent a CT scan of the chest on 08/22/2016 that revealed multilobar pneumonia, small to moderate multiloculated right pleural effusion, which might indicate a parapneumonic effusion versus empyema. There is also evidence of mild emphysema. She was started on antibiotics, however, she has progressive dyspnea and hypoxia and hence she was transferred to [facility]. Infectious Disease and pulmonary consultation was obtained, she was started on antibiotics. She underwent right chest tube insertion on 08/25/2016, 130 mL of whitish cloudy right pleural fluid was sent to the lab for evaluation. Her WBC count on 08/26/2016 was 32.2 and on 08/27/2016, it was 54.0. In addition, there was evidence of 23% bands, 5% metamyelocytes, 8%, myelocytes, 1% blasts and hence I was asked to see the patient for further evaluation of leukocytosis. Her hemoglobin was 11.9 with a platelet count of 536. PAST MEDICAL HISTORY: COPD. REVIEW OF SYSTEMS: no n/v, has rt sided CP PHYSICAL EXAMINATION: GENERAL APPEARANCE: The patient is a 55-year-old female who is in no acute cardiorespiratory distress. CHEST: Bilaterally symmetrical, decreased air entry on the right side. HEART: S1, S2 normal. ABDOMEN: Soft, nontender. No hepatosplenomegaly. CENTRAL NERVOUS SYSTEM: No focal neurological deficits. LABORATORY DATA: On 08/27/2016, WBC 54, hemoglobin 11.9, MCV 83, platelet count 536, bands 23%, metamyelocytes 5%, myelocytes 8% and peripheral smear on 08/26/2016 revealed presence of blasts at 1%. IMPRESSION AND PLAN: 1. Severe leukocytosis with a WBC count of 54,000 on 08/27/2016 and hemoglobin of 11.9, platelet count 536,000. There was evidence of elevated bands at 23%, elevated metamyelocytes of 5%, myelocytes of 8%, and 1% blasts. With the presence of sepsis, pneumonia and empyema, this is most likely reactive process. However, in view of worsening myelocytes and the presence of blasts, I would pursue with the bone marrow aspiration and biopsy to make sure that she does not have a primary bone marrow disorder. WBC now 14.2, monitor cbc S/p bone marrow bx 08/29/16. I d/w pathologist, no increased blasts to suggest leukemia, final results: The findings appear to be most compatible with a reactive neutrophilic leukocytosis and thrombocytosis. 2. Pneumonia. Continue antibiotics. Appreciate ID consultation. 3. Empyema. Status post right thoracentesis and chest tube placement. 4. Sepsis with lactic acidosis. 5. Fever, improving. 6. Chronic obstructive pulmonary disease. SARAVANAN RAMIREZ MD Sep 05, 2016 09:01
--- NOTE | 2016-09-05 09:21 | PDOC ---
PROGRESS NOTES Chief Complaint Chief Complaint Acute hypoxic respiratory failure ASSESSMENT AND PLAN: 1. PNA: multilobar. on broad spectrum coverage (zosyn, linezolid) 2. Empyema: loculated, now double CT in place, TPA administered in both . unfortunately, 3rd fluid pocket present. consult to CT surg for decortication 3. COPD exacerbation: resolving 4. Sepsis: resolved 5. Leukocytosis with severe left shift: continues to improve. leukemoid rxn from infect, confirmed by BM bx obtained 08/29. 6. HTN, tachycardia: recurrent, after several days of soft Bp and low HR. tolerating tachycardia for now. restart BB if persistent. 7. BP at low normal, prob influenced by IV narcotics. IVF boluses PRN 8. UC: on mesalamine, pancreatic enzymes, macrobiotics 9. Depression: on zyprexa 10. Smoker: nicotine patch 11. Migraine: imitrex PRN 12. chest pain: musculoskeletal w/ CT: fentanyl, Oxy PO PRN 13. Prophylaxis: lovenox, PPI 14. Dispo: no acute plans for D/C with ongoing interventions w/ empyema. will prob need SNF rather than LTAC at D/C History of Present Illness History of Present Illness attempted 2 times to see pt, she went for surgery, will follow her in AM, chart reviewed, d/w RN Vitals Vitals Vital Signs Date Time Temp Pulse Resp B/P Pulse Ox O2 Delivery O2 Flow Rate FiO2 09/05/16 08:37 Nasal Cannula 2.0 09/05/16 07:43 97 09/05/16 07:00 98.2 119 84/50 98.2 09/05/16 03:01 20 Labs LABS Laboratory Tests Test 09/05/16 05:45 White Blood Count 14.2x10^3/uL (4.0-11.0) Red Blood Count 2.67x10^6/uL (3.50-5.40) Hemoglobin 7.4g/dL (12.0-15.5) Hematocrit 22.7% (36.0-47.0) Mean Corpuscular Volume 85fL (79-100) Mean Corpuscular Hemoglobin 28pg (25-35) Mean Corpuscular Hemoglobin Concent 33g/dL (31-37) Red Cell Distribution Width 15.0% (11.5-14.5) Platelet Count 466x10^3/uL (140-400) Neutrophils (%) (Auto) 86% (31-73) Lymphocytes (%) (Auto) 7% (24-48) Monocytes (%) (Auto) 5% (0-9) Eosinophils (%) (Auto) 2% (0-3) Basophils (%) (Auto) 1% (0-3) Neutrophils # (Auto) 12.2x10^3uL (1.8-7.7) Lymphocytes # (Auto) 0.9x10^3/uL (1.0-4.8) Monocytes # (Auto) 0.6x10^3/uL (0.0-1.1) Eosinophils # (Auto) 0.3x10^3/uL (0.0-0.7) Basophils # (Auto) 0.1x10^3/uL (0.0-0.2) Sodium Level 137mmol/L (136-145) Potassium Level 4.3mmol/L (3.5-5.1) Chloride Level 101mmol/L (98-107) Carbon Dioxide Level 30mmol/L (21-32) Anion Gap 6 (6-14) Blood Urea Nitrogen 7mg/dL (7-20) Creatinine 0.7mg/dL (0.6-1.0) Estimated GFR (Cockcroft-Gault) 86.9 Glucose Level 72mg/dL (70-99) Calcium Level 8.1mg/dL (8.5-10.1) Assessment and Plan Assessmemt and Plan Problems Medical Problems: (1) CAP (community acquired pneumonia) Status: Acute (2) Empyema of lung Status: Acute Problems: Comment Review of Relevant I have reviewed the following items randi (where applicable) has been applied. Labs Laboratory Tests Test 09/04/16 05:45 09/05/16 05:45 White Blood Count 16.8x10^3/uL (4.0-11.0) 14.2x10^3/uL (4.0-11.0) Red Blood Count 2.83x10^6/uL (3.50-5.40) 2.67x10^6/uL (3.50-5.40) Hemoglobin 7.8g/dL (12.0-15.5) 7.4g/dL (12.0-15.5) Hematocrit 23.4% (36.0-47.0) 22.7% (36.0-47.0) Mean Corpuscular Volume 83fL (79-100) 85fL (79-100) Mean Corpuscular Hemoglobin 28pg (25-35) 28pg (25-35) Mean Corpuscular Hemoglobin Concent 34g/dL (31-37) 33g/dL (31-37) Red Cell Distribution Width 14.6% (11.5-14.5) 15.0% (11.5-14.5) Platelet Count 536x10^3/uL (140-400) 466x10^3/uL (140-400) Neutrophils (%) (Auto) 87% (31-73) 86% (31-73) Lymphocytes (%) (Auto) 6% (24-48) 7% (24-48) Monocytes (%) (Auto) 4% (0-9) 5% (0-9) Eosinophils (%) (Auto) 1% (0-3) 2% (0-3) Basophils (%) (Auto) 1% (0-3) 1% (0-3) Neutrophils # (Auto) 14.7x10^3uL (1.8-7.7) 12.2x10^3uL (1.8-7.7) Lymphocytes # (Auto) 1.1x10^3/uL (1.0-4.8) 0.9x10^3/uL (1.0-4.8) Monocytes # (Auto) 0.7x10^3/uL (0.0-1.1) 0.6x10^3/uL (0.0-1.1) Eosinophils # (Auto) 0.2x10^3/uL (0.0-0.7) 0.3x10^3/uL (0.0-0.7) Basophils # (Auto) 0.1x10^3/uL (0.0-0.2) 0.1x10^3/uL (0.0-0.2) Segmented Neutrophils % 85% (35-66) Band Neutrophils % 3% (0-9) Lymphocytes % 7% (24-48) Atypical Lymphocytes % (Manual) 1% (0-0) Monocytes % 4% (0-10) Platelet Estimate Increased (ADEQUATE) Sodium Level 136mmol/L (136-145) 137mmol/L (136-145) Potassium Level 4.1mmol/L (3.5-5.1) 4.3mmol/L (3.5-5.1) Chloride Level 101mmol/L (98-107) 101mmol/L (98-107) Carbon Dioxide Level 29mmol/L (21-32) 30mmol/L (21-32) Anion Gap 6 (6-14) 6 (6-14) Blood Urea Nitrogen 6mg/dL (7-20) 7mg/dL (7-20) Creatinine 0.7mg/dL (0.6-1.0) 0.7mg/dL (0.6-1.0) Estimated GFR (Cockcroft-Gault) 86.9 86.9 Glucose Level 91mg/dL (70-99) 72mg/dL (70-99) Calcium Level 8.4mg/dL (8.5-10.1) 8.1mg/dL (8.5-10.1) Laboratory Tests Test 09/05/16 05:45 White Blood Count 14.2x10^3/uL (4.0-11.0) Red Blood Count 2.67x10^6/uL (3.50-5.40) Hemoglobin 7.4g/dL (12.0-15.5) Hematocrit 22.7% (36.0-47.0) Mean Corpuscular Volume 85fL (79-100) Mean Corpuscular Hemoglobin 28pg (25-35) Mean Corpuscular Hemoglobin Concent 33g/dL (31-37) Red Cell Distribution Width 15.0% (11.5-14.5) Platelet Count 466x10^3/uL (140-400) Neutrophils (%) (Auto) 86% (31-73) Lymphocytes (%) (Auto) 7% (24-48) Monocytes (%) (Auto) 5% (0-9) Eosinophils (%) (Auto) 2% (0-3) Basophils (%) (Auto) 1% (0-3) Neutrophils # (Auto) 12.2x10^3uL (1.8-7.7) Lymphocytes # (Auto) 0.9x10^3/uL (1.0-4.8) Monocytes # (Auto) 0.6x10^3/uL (0.0-1.1) Eosinophils # (Auto) 0.3x10^3/uL (0.0-0.7) Basophils # (Auto) 0.1x10^3/uL (0.0-0.2) Sodium Level 137mmol/L (136-145) Potassium Level 4.3mmol/L (3.5-5.1) Chloride Level 101mmol/L (98-107) Carbon Dioxide Level 30mmol/L (21-32) Anion Gap 6 (6-14) Blood Urea Nitrogen 7mg/dL (7-20) Creatinine 0.7mg/dL (0.6-1.0) Estimated GFR (Cockcroft-Gault) 86.9 Glucose Level 72mg/dL (70-99) Calcium Level 8.1mg/dL (8.5-10.1) Microbiology 08/25/16 Anaerobic/Aerobic Culture - Final, Resulted 08/25/16 Anaerobic Culture Result 1 (BRUCE) - Preliminary, Resulted 08/25/16 Aerobic Culture - Final, Resulted 08/25/16 Aerobic Culture Result 1 (BRUCE) - Final, Resulted Medications Current Medications Acetaminophen (Tylenol) 325 mg PRN Q6HRS PRN PO MILD PAIN / TEMP Last administered on 08/26/16 08:29; Start 08/25/16 at 12:45 Acetaminophen/ Hydrocodone Bitart (Lortab 5/325) 1 tab PRN Q6HRS PRN PO MODERATE PAIN Last administered on 08/27/16 02:06; Start 08/25/16 at 12:45; Stop 08/29/16 at 16:41; Status DC Hydralazine HCl (Apresoline) 10 mg PRN Q4HRS PRN IVP ELEVATED BP, SEE COMMENTS Last administered on 08/26/16 05:07; Start 08/25/16 at 12:45 Ondansetron HCl (Zofran) 4 mg PRN Q8HRS PRN IV NAUSEA/VOMITING Last administered on 08/25/16 15:42; Start 08/25/16 at 12:45; Stop 08/27/16 at 08:44 ; Status DC Albuterol Sulfate 2.5 mg 2.5 mg PRN Q4HRS PRN NEB SHORTNESS OF BREATH; Start at 12:45 Piperacillin Sod/ Tazobactam Sod 3.375 gm/Sodium Chloride 50 ml @ 100 mls/hr Q6HRS IV Last administered on 09/05/16 05:20; Start 08/25/16 at 13:00 Linezolid (Zyvox Premix) 300 ml @ 300 mls/hr Q12HR IV Last administered on 20:54; Start 08/25/16 at 14:00 Piperacillin Sod/ Tazobactam Sod 1 each 1 each PRN DAILY PRN MC SEE COMMENTS; Start 08/25/16 at 13:45; Stop 08/27/16 at 12:41; Status DC Levofloxacin/ Dextrose (LEVAQUIN 750mg PREMIX) 150 ml @ 100 mls/hr Q24H IV Last administered on 08/28/16 13:51; Start 08/25/16 at 14:00; Stop 08/28/16 at 14:37; Status DC Lidocaine/Sodium Bicarbonate (Buffered Lidocaine 1%) 20 ml STK-MED ONCE IJ ; Start 08/25/16 at 14:00; Stop 08/25/16 at 14:01; Status DC Lidocaine/Sodium Bicarbonate (Buffered Lidocaine 1%) 5 ml 1X ONCE IJ Last administered on 08/25/16 14:59; Start 08/25/16 at 15:00; Stop 08/25/16 at 15:01 ; Status DC Info (Do NOT chart on this placeholder) 1 each 1X ONCE MC ; Start 08/25/16 at 17:00; Stop 08/25/16 at 17:01; Status UNV Pneumococcal Polyvalent Vaccine (Do NOT chart on this placeholder) 1 each 1X ONCE MC ; Start 08/25/16 at 17:00; Stop 08/25/16 at 17:01; Status UNV Influenza Virus Vaccine Quadrival (Fluarix Quad [id number] Syringe) 0.5 ml ONCE ONCE VAX IM ; Start 08/26/16 at 09:00; Stop 08/26/16 at 09:01; Status DC Pneumococcal Polyvalent Vaccine (Pneumovax 23) 0.5 ml ONCE ONCE VAX IM ; Start 08/26/16 at 09:00; Stop 08/26/16 at 09:01; Status DC Enoxaparin Sodium (Lovenox 40mg Syringe) 40 mg Q24H SQ Last administered on 08:19; Start 08/26/16 at 09:00; Stop 08/29/16 at 11:45; Status DC Fentanyl Citrate (Fentanyl 2ml Vial) 25 mcg PRN Q4HRS PRN IV PAIN Last administered on 08/27/16 06:13; Start 08/26/16 at 08:30; Stop 08/29/16 at 15:07 ; Status DC Potassium Chloride (Klor-Con) 40 meq 1X ONCE PO Last administered on 11:24; Start 08/26/16 at 10:45; Stop 08/26/16 at 10:49; Status DC Mesalamine (Lialda) 4.8 gm DAILY06 PO Last administered on 09/04/16 05:28; Start 08/26/16 at 13:30 Olanzapine (Zyprexa) 2.5 mg HS PO Last administered on 09/04/16 20:53; Start 08/26/16 at 21:00 Sumatriptan Succinate (Imitrex) 100 mg PRN Q2HR PRN PO MIGRAINE HEADACHE Last administered on 09/04/16 13:31; Start 08/26/16 at 13:30 Tizanidine HCl (Zanaflex) 4 mg QHS PO Last administered on 08/26/16 19:57; Start 08/26/16 at 21:00; Stop 08/26/16 at 21:00; Status DC Tramadol HCl (Ultram) 50 mg BID PO Last administered on 08/31/16 07:48; Start 08/26/16 at 14:00; Stop 08/31/16 at 15:54; Status DC Ascorbic Acid (Vitamin C) 1,000 mg DAILY PO Last administered on 09/04/16 07: 52; Start 08/27/16 at 09:00 Amylase/Lipase/ Protease (Zenpep 5,000) 5 cap TIDWMEALS PO Last administered on 09/04/16 17:25; Start 08/26/16 at 17:00 Niacin (Slo-Niacin) 500 mg QHS PO Last administered on 09/04/16 20:53; Start 08/26/16 at 21:00 Pantoprazole Sodium (Protonix) 40 mg DAILYAC PO Last administered on 09/04/16 07:53; Start 08/26/16 at 14:00 Non-Formulary Medication 1 tab DAILY PO ; Start 08/27/16 at 09:00; Status UNV Diphenoxylate HCl/ Atropine (Lomotil) 1 tab PRN QID PRN PO DIARRHEA Last administered on 09/03/16 17:27; Start 08/26/16 at 13:45 Tizanidine HCl (Zanaflex) 20 mg QHS PO Last administered on 09/04/16 20:53; Start 08/26/16 at 21:00 Acetaminophen/ Hydrocodone Bitart (Lortab 5/325) 2 tab PRN Q6HRS PRN PO SEVERE PAIN Last administered on 08/29/16 10:47; Start 08/27/16 at 04:45; Stop at 16:41; Status DC Ondansetron HCl (Zofran) 4 mg PRN Q6HRS PRN IV NAUSEA/VOMITING; Start 08/27/16 at 08:42 Vancomycin HCl 125 mg [id number] PO Last administered on 08/28/16 20:54; Start at 16:00; Stop 08/29/16 at 10:24; Status DC Lactobacillus Acidophilus 1 tab 1 tab TIDWMEALS PO Last administered on 17:25; Start 08/27/16 at 17:00 Sodium Chloride (Iv Sodium Chloride 0.9% 500ml Bag) 500 ml @ 500 mls/hr 1X ONCE IV Last administered on 08/28/16 00:52; Start 08/28/16 at 01:00; Stop at 01:59; Status DC Nicotine (Nicoderm Cq 21mg) 1 patch PRN DAILY PRN TD SMOKING CESSATION; Start 08/28/16 at 09:30 Cetirizine HCl (Zyrtec) 10 mg DAILY PO Last administered on 09/04/16 07:53; Start 08/28/16 at 10:00 Vitamin D (Vitamin D3) 1,000 unit DAILY PO Last administered on 09/04/16 07:53 ; Start 08/28/16 at 10:00 Iohexol (Omnipaque 300 Mg/ml) 75 ml 1X ONCE IV Last administered on 08/28/16 10:53; Start 08/28/16 at 10:15; Stop 08/28/16 at 10:16; Status DC Info (Do NOT chart on this entry -- for MONITORING) 1 each PRN DAILY PRN MC SEE COMMENTS; Start 08/28/16 at 10:00; Stop 08/30/16 at 09:59; Status DC Potassium Chloride (Klor-Con) 40 meq 1X ONCE PO Last administered on 13:52; Start 08/28/16 at 13:00; Stop 08/28/16 at 13:01; Status DC Lidocaine/Sodium Bicarbonate (Buffered Lidocaine 1%) 20 ml STK-MED ONCE IJ ; Start 08/29/16 at 08:36; Stop 08/29/16 at 08:37; Status DC Naloxone HCl (Narcan) 0.4 mg STK-MED ONCE .ROUTE ; Start 08/29/16 at 08:37; Stop 08/29/16 at 08:38; Status DC Flumazenil (Romazicon) 0.5 mg STK-MED ONCE IV ; Start 08/29/16 at 08:37; Stop at 08:38; Status DC Midazolam HCl (Versed) 5 mg STK-MED ONCE .ROUTE ; Start 08/29/16 at 08:37; Stop 08/29/16 at 08:38; Status DC Fentanyl Citrate (Fentanyl 5ml Vial) 250 mcg STK-MED ONCE .ROUTE ; Start at 08:37; Stop 08/29/16 at 08:38; Status DC Lidocaine/Sodium Bicarbonate (Buffered Lidocaine 1%) 6 ml 1X ONCE IJ Last administered on 08/29/16 09:09; Start 08/29/16 at 09:15; Stop 08/29/16 at 09:16 ; Status DC Midazolam HCl (Versed) 2 mg 1X ONCE IV Last administered on 08/29/16 09:08; Start 08/29/16 at 09:15; Stop 08/29/16 at 09:16; Status DC Fentanyl Citrate (Fentanyl 5ml Vial) 100 mcg 1X ONCE IV Last administered on 09:08; Start 08/29/16 at 09:15; Stop 08/29/16 at 09:16; Status DC Enoxaparin Sodium (Lovenox 40mg Syringe) 40 mg Q24H SQ Last administered on 16:01; Start 08/29/16 at 16:00; Stop 08/31/16 at 10:23; Status DC Acetaminophen/ Hydrocodone Bitart (Lortab 5/325) 1 tab PRN Q4HRS PRN PO MODERATE PAIN; Start 08/29/16 at 16:45; Stop 08/31/16 at 15:54; Status DC Acetaminophen/ Hydrocodone Bitart (Lortab 5/325) 2 tab PRN Q4HRS PRN PO SEVERE PAIN Last administered on 08/31/16 15:14; Start 08/29/16 at 16:45; Stop at 15:54; Status DC Lidocaine/Sodium Bicarbonate (Buffered Lidocaine 1%) 20 ml STK-MED ONCE IJ ; Start 08/30/16 at 13:57; Stop 08/30/16 at 13:58; Status DC Midazolam HCl (Versed) 2 mg STK-MED ONCE .ROUTE ; Start 08/30/16 at 14:22; Stop 08/30/16 at 14:23; Status DC Fentanyl Citrate (Fentanyl 2ml Vial) 100 mcg STK-MED ONCE .ROUTE ; Start at 14:22; Stop 08/30/16 at 14:23; Status DC Lidocaine/Sodium Bicarbonate (Buffered Lidocaine 1%) 4 ml 1X ONCE IJ Last administered on 08/30/16 15:08; Start 08/30/16 at 14:50; Stop 08/30/16 at 15:04 ; Status DC Midazolam HCl (Versed) 1 mg 1X ONCE IV Last administered on 08/30/16 15:09; Start 08/30/16 at 14:45; Stop 08/30/16 at 15:04; Status DC Fentanyl Citrate (Fentanyl 2ml Vial) 50 mcg 1X ONCE IV Last administered on 15:09; Start 08/30/16 at 14:45; Stop 08/30/16 at 15:05; Status DC Metoprolol Tartrate 25 mg 25 mg BID PO Last administered on 08/30/16 21:44; Start 08/30/16 at 21:00; Stop 08/31/16 at 17:09; Status DC Alteplase, Recombinant 5 mg/ Sterile Water 50 ml @ 5 mls/hr 1X ONCE IV ; Start 08/31/16 at 10:30; Stop 08/31/16 at 15:27; Status DC Alteplase, Recombinant 5 mg/ Sterile Water 50 ml @ 5 mls/hr 1X ONCE IV ; Start 08/31/16 at 10:45; Stop 08/31/16 at 15:27; Status DC Alteplase, Recombinant 5 mg/ Sterile Water 50 ml @ 5 mls/hr 1X ONCE INT CAT Last administered on 08/31/16 12:40; Start 08/31/16 at 15:27; Stop 08/31/16 at 20:29; Status DC Alteplase, Recombinant/ Sterile Water (Cathflo) 50 ml @ 5 mls/hr 1X ONCE INT CAT Last administered on 08/31/16 12:40; Start 08/31/16 at 15:27; Stop at 20:44; Status DC Oxycodone HCl (Roxicodone) 5 mg PRN Q3HRS PRN PO MILD-MOD PAIN Last administered on 09/03/16 00:49; Start 08/31/16 at 16:00 Morphine Sulfate 2 mg PRN Q6HRS PRN IV PAIN; Start 08/31/16 at 16:00; Stop at 18:07; Status DC Oxycodone HCl (Roxicodone) 10 mg PRN Q3HRS PRN PO SEVERE PAIN Last administered on 09/03/16 18:00; Start 08/31/16 at 16:00 Fentanyl Citrate (Fentanyl 2ml Vial) 50 mcg PRN Q2HR PRN IV PAIN SEV Last administered on 09/05/16 08:37; Start 08/31/16 at 18:15 Morphine Sulfate 2 mg 2 mg ONCE ONCE IV Last administered on 08/31/16 18:05; Start 08/31/16 at 20:45; Stop 08/31/16 at 20:46; Status DC Sodium Chloride (Iv Sodium Chloride 0.9% 500ml Bag) 500 ml @ 500 mls/hr 1X ONCE IV Last administered on 09/01/16 06:30; Start 09/01/16 at 06:30; Stop at 07:29; Status DC Alteplase, Recombinant (Cathflo) 2 mg 1X ONCE INT CAT Last administered on 06:35; Start 09/01/16 at 07:00; Stop 09/01/16 at 07:01; Status DC Albuterol Sulfate 2.5 mg 2.5 mg RTQID NEB Last administered on 09/05/16 07:42 ; Start 09/01/16 at 12:00 Sodium Chloride 1,000 ml @ 1,000 mls/hr 1X ONCE IV Last administered on 12:09; Start 09/01/16 at 11:45; Stop 09/01/16 at 12:44; Status DC Alteplase, Recombinant 5 mg/ Sterile Water 50 ml @ 5 mls/hr 1X ONCE INT CAT Last administered on 09/01/16 12:30; Start 09/01/16 at 12:30; Stop 09/01/16 at 22:29; Status DC Alteplase, Recombinant/ Sterile Water (Cathflo) 50 ml @ 5 mls/hr 1X ONCE INT CAT Last administered on 09/01/16 12:30; Start 09/01/16 at 12:30; Stop at 22:29; Status DC Alteplase, Recombinant 2 mg 2 mg 1X ONCE INT CAT Last administered on 15:18; Start 09/01/16 at 13:00; Stop 09/01/16 at 13:01; Status DC Sodium Chloride (Iv Sodium Chloride 0.9% 1000ml Bag) 1,000 ml @ 1,000 mls/hr 1X ONCE IV Last administered on 09/01/16 23:45; Start 09/01/16 at 23:45; Stop 09/02/16 at 00:44; Status DC Fentanyl Citrate (Fentanyl 2ml Vial) 50 mcg 1X ONCE IV Last administered on 15:30; Start 09/03/16 at 15:30; Stop 09/03/16 at 15:35; Status DC Active Scripts Active Reported [diphen/atropine] 2.5 Mg PO PRN QID PRN Prilosec Otc (Omeprazole Magnesium) 20 Mg Tablet.dr 1 Tab PO DAILY Lialda (Mesalamine) 1.2 Gm Tablet. 4 Tab PO DAILY06 Tizanidine Hcl 4 Mg Tablet 5 Tab PO QHS Olanzapine 2.5 Mg Tablet 2.5 Mg PO HS Zyrtec (Cetirizine Hcl) 10 Mg Capsule 10 Mg PO DAILY Dhea 50 Mg Tablet (Prasterone (Dhea)/Calcium Carb) 1 Each Tablet 1 Tab PO DAILY Niacin 500 Mg Tablet 500 Mg PO HS Vitamin D3 (Cholecalciferol (Vitamin D3)) 1,000 Unit Capsule 1,000 Unit PO DAILY Vitamin C (Ascorbic Acid) 1,000 Mg Tab.chew 1,000 Mg PO DAILY Imitrex (Sumatriptan Succinate) 100 Mg Tablet 100 Mg PO ONCE PRN Tramadol Hcl 50 Mg Tablet 4 Tab PO BID Zenpep 25,000 Units Capsule (Lipase/Protease/Amylase) 1 Each Capsule.dr 1 Each PO TIDAFTMEAL Vitals/I & O Vital Sign - Last 24 Hours 09/04/16 09/04/16 09/04/16 09/04/16 10:25 10:25 11:11 12:36 Temp 98.4 98.4 Pulse 88 Resp 24 16 18 B/P 122/72 Pulse Ox 97 O2 Delivery Nasal Cannula Nasal Cannula Nasal Cannula Nasal Cannula O2 Flow Rate 2.0 1.0 2.0 09/04/16 09/04/16 09/04/16 09/04/16 14:31 14:33 15:37 16:34 Temp 98.1 98.1 Pulse 112 Resp 16 18 18 B/P 156/85 Pulse Ox 97 O2 Delivery Nasal Cannula Nasal Cannula Nasal Cannula O2 Flow Rate 1.0 2.0 09/04/16 09/04/16 09/04/16 09/04/16 17:04 18:18 19:00 20:00 Temp 98.3 98.3 Pulse 117 Resp 18 18 20 B/P 156/93 Pulse Ox 98 O2 Delivery Nasal Cannula Nasal Cannula Nasal Cannula O2 Flow Rate 2.0 2.0 09/04/16 09/04/16 09/04/16 09/04/16 20:54 21:39 23:00 23:47 Temp 98.1 98.1 Pulse 105 Resp 20 B/P 102/60 Pulse Ox 98 100 99 99 O2 Delivery Nasal Cannula Nasal Cannula Nasal Cannula Nasal Cannula O2 Flow Rate 2.0 1.0 1.0 09/05/16 09/05/16 09/05/16 09/05/16 02:41 03:01 05:21 05:51 Temp 98.5 98.5 Pulse 85 Resp 20 B/P 84/50 Pulse Ox 99 99 99 99 O2 Delivery Nasal Cannula Nasal Cannula Nasal Cannula Nasal Cannula O2 Flow Rate 1.0 1.0 1.0 09/05/16 09/05/16 09/05/16 07:00 07:43 08:37 Temp 98.2 98.2 Pulse 119 B/P 84/50 Pulse Ox 93 97 O2 Delivery Nasal Cannula Nasal Cannula Nasal Cannula O2 Flow Rate 2.0 1.0 2.0 Intake and Output 09/04/16 09/04/16 09/05/16 15:00 23:00 07:00 Intake Total 1070 ml 630 ml 650 ml Output Total 2800 ml 1850 ml Balance 1070 ml -2170 ml -1200 ml NAE CANNON MD Sep 05, 2016 09:21
--- NOTE | 2016-09-05 10:44 | PDOC ---
Infectious Disease Note Subjective Subjective Feeling alright Diarrhea controlled Pain ok ROS ROS GEN: Denies fevers, chills, sweats HEENT: Denies blurred vision, sore throat CV: Denies chest pain RESP: Denies shortness of air, cough GI: Denies n/v/d NEURO: Denies confusion, dizziness MSK: Denies weakness, joint pain/swelling Vital Sign Vital Signs Vital Signs Date Time Temp Pulse Resp B/P Pulse Ox O2 Delivery O2 Flow Rate FiO2 09/05/16 09:00 121 103/63 95 Nasal Cannula 2.0 09/05/16 07:00 98.2 98.2 09/05/16 03:01 20 Physical Exam PHYSICAL EXAM GENERAL: NAD, Alert HEENT: PERRL, OC/OP -clear NECK: Supple, no JVD, no LN LUNGS: Clear. Chest tubes times 2 HEART: S1S2, no gallop, no murmur ABD: Soft, NT, no organomegaly, no rebound EXT: No edema, no cyanosis ANY COMMODITY BUYER: Alert, oriented x 3, no focal neurologic deficit SKIN: No rash IV: RUE PICC - clean Labs Lab Laboratory Tests Test 09/05/16 05:45 White Blood Count 14.2x10^3/uL (4.0-11.0) Red Blood Count 2.67x10^6/uL (3.50-5.40) Hemoglobin 7.4g/dL (12.0-15.5) Hematocrit 22.7% (36.0-47.0) Mean Corpuscular Volume 85fL (79-100) Mean Corpuscular Hemoglobin 28pg (25-35) Mean Corpuscular Hemoglobin Concent 33g/dL (31-37) Red Cell Distribution Width 15.0% (11.5-14.5) Platelet Count 466x10^3/uL (140-400) Neutrophils (%) (Auto) 86% (31-73) Lymphocytes (%) (Auto) 7% (24-48) Monocytes (%) (Auto) 5% (0-9) Eosinophils (%) (Auto) 2% (0-3) Basophils (%) (Auto) 1% (0-3) Neutrophils # (Auto) 12.2x10^3uL (1.8-7.7) Lymphocytes # (Auto) 0.9x10^3/uL (1.0-4.8) Monocytes # (Auto) 0.6x10^3/uL (0.0-1.1) Eosinophils # (Auto) 0.3x10^3/uL (0.0-0.7) Basophils # (Auto) 0.1x10^3/uL (0.0-0.2) Sodium Level 137mmol/L (136-145) Potassium Level 4.3mmol/L (3.5-5.1) Chloride Level 101mmol/L (98-107) Carbon Dioxide Level 30mmol/L (21-32) Anion Gap 6 (6-14) Blood Urea Nitrogen 7mg/dL (7-20) Creatinine 0.7mg/dL (0.6-1.0) Estimated GFR (Cockcroft-Gault) 86.9 Glucose Level 72mg/dL (70-99) Calcium Level 8.1mg/dL (8.5-10.1) Objective Assessment Diarrhea - chronic problem at home - better. C-diff neg S/p Bone marrow 08/29. So far neg path but final pending per Dr Jamison note CAP Right empyema. s/p chest tube placement, 08/25 and 08/30 - pH 7.1. Cults neg Leukocytosis, better Fever. better Sepsis with lactic acidosis Suspected COPD Hypoxia H/o C-diff Plan Plan of Care Continue Zyvox and Zosyn for now Cont probiotics Monitor labs Right VATS, drainage of empyema and pulmonary decortication today NGHIA SONI MD Sep 05, 2016 10:44
--- NOTE | 2016-09-05 12:08 | PDOC ---
PULMONARY PROGRESS NOTES Subjective feels better no soa s/p second chest tube 08/30 s/p TPA via both chest tubes 08/31, 09/01 Vitals Vital Signs Date Time Temp Pulse Resp B/P Pulse Ox O2 Delivery O2 Flow Rate FiO2 09/05/16 11:31 Nasal Cannula 2.0 09/05/16 11:26 99 09/05/16 11:00 99.9 118 112/64 99.9 09/05/16 03:01 20 Comments ros as above, other sys otherwise neg General: Alert, No acute distress HEENT: Other (nc at perrl, throat nose clear) Lungs: Other (decrease bs right, crackles with 2 CTs) Cardiovascular: S1, S2 Abdomen: Soft, Non-tender, Other (no mass) Neuro Exam: Alert, Oriented, No Focal Findings Extremities: No Edema Skin: Warm Labs Laboratory Tests Test 09/04/16 05:45 09/05/16 05:45 White Blood Count 16.8x10^3/uL (4.0-11.0) 14.2x10^3/uL (4.0-11.0) Red Blood Count 2.83x10^6/uL (3.50-5.40) 2.67x10^6/uL (3.50-5.40) Hemoglobin 7.8g/dL (12.0-15.5) 7.4g/dL (12.0-15.5) Hematocrit 23.4% (36.0-47.0) 22.7% (36.0-47.0) Mean Corpuscular Volume 83fL (79-100) 85fL (79-100) Mean Corpuscular Hemoglobin 28pg (25-35) 28pg (25-35) Mean Corpuscular Hemoglobin Concent 34g/dL (31-37) 33g/dL (31-37) Red Cell Distribution Width 14.6% (11.5-14.5) 15.0% (11.5-14.5) Platelet Count 536x10^3/uL (140-400) 466x10^3/uL (140-400) Neutrophils (%) (Auto) 87% (31-73) 86% (31-73) Lymphocytes (%) (Auto) 6% (24-48) 7% (24-48) Monocytes (%) (Auto) 4% (0-9) 5% (0-9) Eosinophils (%) (Auto) 1% (0-3) 2% (0-3) Basophils (%) (Auto) 1% (0-3) 1% (0-3) Neutrophils # (Auto) 14.7x10^3uL (1.8-7.7) 12.2x10^3uL (1.8-7.7) Lymphocytes # (Auto) 1.1x10^3/uL (1.0-4.8) 0.9x10^3/uL (1.0-4.8) Monocytes # (Auto) 0.7x10^3/uL (0.0-1.1) 0.6x10^3/uL (0.0-1.1) Eosinophils # (Auto) 0.2x10^3/uL (0.0-0.7) 0.3x10^3/uL (0.0-0.7) Basophils # (Auto) 0.1x10^3/uL (0.0-0.2) 0.1x10^3/uL (0.0-0.2) Segmented Neutrophils % 85% (35-66) Band Neutrophils % 3% (0-9) Lymphocytes % 7% (24-48) Atypical Lymphocytes % (Manual) 1% (0-0) Monocytes % 4% (0-10) Platelet Estimate Increased (ADEQUATE) Sodium Level 136mmol/L (136-145) 137mmol/L (136-145) Potassium Level 4.1mmol/L (3.5-5.1) 4.3mmol/L (3.5-5.1) Chloride Level 101mmol/L (98-107) 101mmol/L (98-107) Carbon Dioxide Level 29mmol/L (21-32) 30mmol/L (21-32) Anion Gap 6 (6-14) 6 (6-14) Blood Urea Nitrogen 6mg/dL (7-20) 7mg/dL (7-20) Creatinine 0.7mg/dL (0.6-1.0) 0.7mg/dL (0.6-1.0) Estimated GFR (Cockcroft-Gault) 86.9 86.9 Glucose Level 91mg/dL (70-99) 72mg/dL (70-99) Calcium Level 8.4mg/dL (8.5-10.1) 8.1mg/dL (8.5-10.1) Laboratory Tests Test 09/05/16 05:45 White Blood Count 14.2x10^3/uL (4.0-11.0) Red Blood Count 2.67x10^6/uL (3.50-5.40) Hemoglobin 7.4g/dL (12.0-15.5) Hematocrit 22.7% (36.0-47.0) Mean Corpuscular Volume 85fL (79-100) Mean Corpuscular Hemoglobin 28pg (25-35) Mean Corpuscular Hemoglobin Concent 33g/dL (31-37) Red Cell Distribution Width 15.0% (11.5-14.5) Platelet Count 466x10^3/uL (140-400) Neutrophils (%) (Auto) 86% (31-73) Lymphocytes (%) (Auto) 7% (24-48) Monocytes (%) (Auto) 5% (0-9) Eosinophils (%) (Auto) 2% (0-3) Basophils (%) (Auto) 1% (0-3) Neutrophils # (Auto) 12.2x10^3uL (1.8-7.7) Lymphocytes # (Auto) 0.9x10^3/uL (1.0-4.8) Monocytes # (Auto) 0.6x10^3/uL (0.0-1.1) Eosinophils # (Auto) 0.3x10^3/uL (0.0-0.7) Basophils # (Auto) 0.1x10^3/uL (0.0-0.2) Sodium Level 137mmol/L (136-145) Potassium Level 4.3mmol/L (3.5-5.1) Chloride Level 101mmol/L (98-107) Carbon Dioxide Level 30mmol/L (21-32) Anion Gap 6 (6-14) Blood Urea Nitrogen 7mg/dL (7-20) Creatinine 0.7mg/dL (0.6-1.0) Estimated GFR (Cockcroft-Gault) 86.9 Glucose Level 72mg/dL (70-99) Calcium Level 8.1mg/dL (8.5-10.1) Medications Active Scripts Medications Dose Route/Sig Days Date Category Zyprexa (Olanzapine) 2.5 Mg Tablet 1 Tab PO QHS 01/15/16 Reported Tizanidine Hcl 4 Mg Tablet 4 Mg PO TID PRN 01/14/16 Reported Tramadol Hcl 50 Mg Tablet 50 Mg PO BID PRN 01/14/16 Reported Lialda (Mesalamine) 1.2 Gm Tablet.dr 4 Tab PO DAILY 01/14/16 Reported Comments cxr reviewed, s/p second chest tube no change in loculated effusion rt Impression . 1. Acute hypoxic respiratory failure, This is secondary to extensive multilobar community-acquired pneumonia/ multiloculated effusion, clinically empyema. 2. chronic obstructive pulmonary disease 3. Persistent severe leukocytosis This is probably related to underlying extensive pneumonia and sepsis./ BM aspiration 08/29 , No leukemia 4. Severe protein-calorie malnutrition with an albumin level of 1.4. 5. Lactic acidosis present on admission on 08/21/2016 at [facility] related to sepsis from pneumonia. 6. Normal ejection fraction by echo with a pulmonary artery systolic pressure of 49. Suspect this is secondary to underlying chronic obstructive pulmonary disease. 7. smoker Plan . 1. cont antibiotic per ID 2. s/p intra-pleural TPA 08/31, 09/01 another 350 cc came out from one of chest tube . ct chest reviewed. still one moderate loculated pocket with no improvement. thoracic surgery for decortication planned for today 3. cont chest tube to suction to -30. ph, 6.9 c/w empyema, repeat 7.1 4. Bronchodilators. 5. Deep venous thrombosis prophylaxis on hold 6. Stress ulcer prophylaxis. 7. Continue BiPAP prn 8. 02 titration 9. Monitor white cell count. follow BP aspirate results 10. advised to quit smoking, 11. pain control HERBER PERALES MD Sep 05, 2016 12:08
[2016-09-05] MEDS ORDERED: BUPIVACAINE MPF 0.5% 30 ML VIAL. ONE (12:12)
[2016-09-05] MEDS ORDERED: LIDOCAINE 1% 20 ML VIAL. ONE (12:13)
[2016-09-05] MEDS ORDERED: SURGICEL HEMOSTAT 4X8 EACH. ONE (12:13)
[2016-09-05] MEDS ORDERED: ROCURONIUM 50 MG/5 ML VIAL. ONE ×2 (13:16→15:24)
[2016-09-05] MEDS ORDERED: FENTANYL PF 100 MCG/2 ML VIAL. ONE ×2 (13:16→15:07)
[2016-09-05] MEDS ORDERED: LIDOCAINE 2% 100 MG/5 ML DISP.SYRIN. ONE (13:16)
[2016-09-05] MEDS ORDERED: PROPOFOL 100 ML IV ONE (13:16)
[2016-09-05] MEDS ORDERED: LIDOCAINE 1% 1 ML SYRINGE. ONE (13:20)
[2016-09-05] MEDS: IV RINGERS,LACTATED 1000ML 1,000 ML IV SCH (13:30)
[2016-09-05] MEDS ORDERED: LIDOCAINE 1% PF 2 ML VIAL. INJ ONE (14:30)
[2016-09-05] MEDS ORDERED: SEVOFLURANE > 120 MINUTES. IH ONE (14:49)
[2016-09-05] MEDS ORDERED: DEXAMETHASONE SOD PHOS 20 MG/5 ML VIAL. ONE (14:49)
[2016-09-05] MEDS ORDERED: METOPROLOL TARTRATE 5 MG/5 ML VIAL. ONE (15:09)
[2016-09-05] MEDS ORDERED: GLYCOPYRROLATE 1 MG/5 ML VIAL. ONE (15:23)
[2016-09-05] MEDS ORDERED: ONDANSETRON PF 4 MG/2 ML VIAL. ONE (15:23)
[2016-09-05] MEDS ORDERED: NEOSTIGMINE METHYLSULFATE 5 MG/5 ML SYRINGE. ONE (15:23)
[2016-09-05] MEDS ORDERED: IV RINGERS,LACTATED 1000ML 1,000 ML IV SCH (17:06)
[2016-09-05] MEDS ORDERED: MORPHINE SULFATE 2 MG/ML DISP.SYRIN. IV PRN (17:15)
[2016-09-05] MEDS ORDERED: ONDANSETRON PF 4 MG/2 ML VIAL. IV PRN (17:15)
[2016-09-05] MEDS ORDERED: FENTANYL PF 100 MCG/2 ML VIAL. IV PRN ×2 (17:15)
[2016-09-05] MEDS ORDERED: LIDOCAINE 1% 1 ML SYRINGE. ID PRN (17:15)
[2016-09-05] MEDS ORDERED: HYDROMORPHONE 2 MG/ML VIAL. IV PRN (17:15)
[2016-09-05] MEDS ORDERED: PROCHLORPERAZINE 10 MG/2 ML VIAL. IV PRN (17:15)
--- NOTE | 2016-09-05 17:26 | PDOC ---
BRIEF OPERATIVE NOTE Date: Sep 05, 2016 Pre-Op Diagnosis Right sided empyema Right pneumonia with parapneumonic effusion Sepsis Respiratory failure Anemia (Hb:7.4) Post-Op Diagnosis Right sided empyema (stage III, fibrothorax) Right pneumonia with parapneumonic effusion Sepsis Respiratory failure Anemia (Hb:7.4) Procedure Performed Right VATS, drainage of empyema and pulmonary decortication Surgeon Yovani Shelby MD Cinder Worker [facility]IR[facility] Soriano Anesthesia Type: General Blood Loss 650 mls IV Fluid PRBCs: 2 units Crystalloid: 2600 mls Urine Output 200 mls Specimens Obtained Right pleura for microbiology and pathology Empyema fluid for microbiology and right chemical analysis Findings Stage III empyema (fibrothorax). Dense adhesions of the lung to the chest wall, extremely difficult to create a space. Owing to the patient's sepsis she was very coagulopathic and there was more bleeding than usual. Very friable lung, possible small parenchymal lung tear. Complications None Additional Remarks 2 units PRBCs given on to the patient's preoperative hemoglobin of 7.4 and diffuse oozing within the right pleural cavity. YOVANI SHELBY MD Sep 05, 2016 17:26
--- NOTE | 2016-09-05 17:28 | PDOC4 ---
Operative Note Operative Note Preoperative diagnosis Right sided empyema Right pneumonia with parapneumonic effusion Sepsis Respiratory failure Anemia (Hb:7.4) Postoperative diagnosis Right sided empyema (stage III, fibrothorax) Right pneumonia with parapneumonic effusion Sepsis Respiratory failure Anemia (Hb:7.4) Procedure Right video assisted thoracoscopic surgery, drainage of empyema and pulmonary decortication Surgeon Yovani Whaley MD Used [employer] Make Ready Worker [employer] Soriano Anesthesia type: General Blood Lossl 650 mls IV fluids PRBCs: 2 units Crystalloid: 2600 mls Urine output 200 mls Specimens obtained Right pleura for microbiology and pathology Empyema fluid for microbiology and right chemical analysis Findings Stage III empyema (fibrothorax). Dense adhesions of the lung to the chest wall, extremely difficult to create a space. Owing to the patient's sepsis she was very coagulopathic and there was more bleeding than usual. Very friable lung, possible small parenchymal lung tear. Multiple complex loculations and effusions. Extremely thickened and fibrinous parietal and visceral pleura. Right lung was fully expanded after decortication without obvious significant air leak. Complications None Additional Remarks 2 units PRBCs given on to the patient's preoperative hemoglobin of 7.4 and diffuse oozing within the right pleural cavity. Two 36Fr chest tubes placed in the the apical anterior and apical posterior positions Indication The patient is a 55-year-old female who presented to [facility] 08/21/2016 with complaints of worsening cough and pleuritic chest pain and dyspnea of one week duration. In the Emergency Room, she was noted to have tachycardia and elevated WBC count of 57,000 and lactic acid of 4.1. She was diagnosed with sepsis. She underwent a chest x-ray that revealed right lower lobe pneumonia with small pneumonic effusion. She underwent a CT scan of the chest on 08/22/2016 that revealed multilobar pneumonia, small to moderate multiloculated right parapneumonic effusion. There is also evidence of mild emphysema. She was started on antibiotics, however, she has progressive dyspnea and hypoxia and hence she was transferred to [facility]. She has had two IR guided pleural tubes placed and has been treated with 3 doses of tPA. On her last CT chest today, she has a persistent, complex and complicated right effusion. Her sepsis has resolved and she is now on 2 lit NC. I was consulted for surgical treatment of her empyema. The risks, benefits and limitations of a right VATS drainage of empyema and pulmonary decortication were explained to the patient who agreed to proceed. Informed consent was obtained. Operation The patient was seen in the preoperative area where her ID was confirmed using 2 unique identifies. The right chest was marked. The patient was transferred to the operating room and initially placed in supine position. Anesthesia was induced by the anesthesiologist and the airway was secured with a double lumen ET tube. An arterial line was placed. A Brar catheter has been in place for several days. The patient has been receiving therapeutic intravenous antibiotics , as a result, antibiotic prophylaxis was not given. The patient was then placed in the left lateral decubitus position with the right side up. The two previously placed pleural pigtails were removed. The right chest was prepped and draped in the usual sterile surgical fashion. I initially made a 1 cm incision in the mid axillary line at the 8th intercostal space. There were multiple pulmonary adhesions in this area so I carefully created an intrapleural space with blunt digital dissection, the lung from the chest wall. I then inserted a 30 scope and further bluntly divided intrapleural adhesions to facilitate visualization. Dense adhesions of the lung to the chest wall, extremely difficult to create a space. Owing to the patient's sepsis she was very coagulopathic and there was more bleeding than usual. The lung was very friable.There was a thick fibrinous material overlying of the parietal and visceral pleura. I then placed one additional working port in the fifth intercostal space at the anterior axillary line. Using blunt dissection with round forceps, I divided all the intrapleural adhesions thus the lung from the chest wall. I divided multiple loculations which contained fluid pockets which were drained. I did send pleural fluid as a specimen for Gram stain, culture, pH, LDH, protein, glucose. I freed the posterior, anterior, lateral, apical surfaces of the lung. I also mobilized the diaphragmatic lung. Once the lung was freed up, I proceeded with pulmonary decortication. The fibrinous peel on the surface of the lung was relatively thin and immature. The parietal pleural was covered with a thicker surface of fibrinous material which was thoroughly removed. Pleura was sent as a specimen to pathology and microbiology. Once I completed my pulmonary decortication, I asked anesthesia to insufflate the lung which fully expanded. I then irrigated the pleural cavity with 5 L of irrigation. Owing to the patient 's ongoing sepsis, she was coagulopathic and there was more hemorrhage and then usual. The patient's preoperative hemoglobin was 7.4 so we gave 2 units of PRBCs. Owing to her preoperative anemia and diffuse oozing the patient was relatively hypotensive throughout the case and required resuscitation which was successfully performed by anesthesia. The pleural cavity and right lung were inspected, and there was no obvious hemorrhage and no obvious parenchymal lung tear with an associated air leak. I then placed two 36Fr chest tubes, in the posterior apical and anterior apical positions, through the scope port and the anterior working port. These were secured with 0 silk stitches. The chest tubes were connected to 20 mmHg suction. At the end of the procedure the instrument, sponge and needle counts were correct. Anesthesia was reversed, the patient was extubated, transferred to the ICU in stable condition having tolerated the procedure well. YOVANI WHALEY MD Sep 05, 2016 17:28
[2016-09-05] MEDS ORDERED: PHENYLEPHRINE 10 MG/ML VIAL. ONE (17:37)
[2016-09-05] MEDS ORDERED: SODIUM BICARB ADULT 8.4% 50 MEQ/50 ML DISP.SYRIN. ONE (17:58)
[2016-09-05 18:14] LABS: HCO3 ABG 14 mmol/L (21-28); PCO2 ABG 47 mmHg (35-46); PO2 ABG 110 mmHg (75-108); SAT O2 ABG 96 % (92-99)
[2016-09-05 18:24] LABS: HCO3 ABG 19 mmol/L (21-28); PCO2 ABG 38 mmHg (35-46); PH ABG 7.31 (7.35-7.45); PO2 ABG 131 mmHg (75-108); SAT O2 ABG 98 % (92-99)
[2016-09-05 18:26] LABS: FIO2 ABG 100
[2016-09-05 18:26] LABS: FIO2 ABG 100
[2016-09-05 20:12] LABS: BASO # 0.2 x10^3/uL (0.0-0.2); BASO % 0 % (0-3); EOS % 0 % (0-3); HEMATOCRIT 23.4 % (36.0-47.0); HEMOGLOBIN 7.7 g/dL (12.0-15.5); LYMPH # 0.6 x10^3/uL (1.0-4.8); LYMPH % 2 % (24-48); MEAN CORPUSCULAR HEMOGLOBIN 28 pg (25-35); MEAN CORPUSCULAR HGB CONC 33 g/dL (31-37); MEAN CORPUSCULAR VOLUME 86 fL (79-100); MONO % 1 % (0-9); NEUT % 97 % (31-73); PLATELET COUNT 359 x10^3/uL (140-400); RED BLOOD COUNT 2.72 x10^6/uL (3.50-5.40); RED CELL DISTRIBUTION WIDTH 14.2 % (11.5-14.5); WHITE BLOOD COUNT 36.5 x10^3/uL (4.0-11.0)
[2016-09-05 20:20] LABS: INR 1.4 (0.8-1.1); PROTHROMBIN TIME PATIENT 16.7 SEC (11.7-14.0)
[2016-09-05 20:26] LABS: CALCIUM 7.4 mg/dL (8.5-10.1); CREATININE 0.7 mg/dL (0.6-1.0); GFR 86.9; POTASSIUM 4.8 mmol/L (3.5-5.1)
[2016-09-05 20:50] LABS: ANISOCYTOSIS SLIGHT; CRENATED RBC PRESENT; HYPOCHROMIA MOD; PLT ESTIMATE ADEQUATE (ADEQUATE); POIKILOCYTOSIS SLIGHT; POLYCHROMASIA SLIGHT; TOXIC GRANULATION SLIGHT
[2016-09-05] MEDS: OLANZAPINE 2.5 MG TABLET PO SCH (21:00)
[2016-09-05] MEDS: tiZANidine 4 MG TABLET. PO SCH (21:00)
[2016-09-05] MEDS: NIACIN ER 500 MG TABLET.ER PO SCH (21:00)
[2016-09-05] MEDS ORDERED: IV RINGERS,LACTATED 1000ML 500 ML IV ONE (21:30)
[2016-09-06] VITALS (24 sets, daily range): BP systolic 88–171; BP diastolic 53–89
[2016-09-06] MEDS: PIPERACILLIN/TAZOBACTAM 3.375 GM in IV NORMAL SALINE 50ML 50 ML IV SCH ×5 (00:05→23:36)
[2016-09-06] MEDS: FENTANYL PF 100 MCG/2 ML VIAL. IV PRN ×8 (00:05→19:17)
[2016-09-06 01:17] LABS: HCO3 ABG 22 mmol/L (21-28); PCO2 ABG 32 mmHg (35-46); PH ABG 7.46 (7.35-7.45); PO2 ABG 135 mmHg (75-108); SAT O2 ABG 98 % (92-99)
[2016-09-06 01:18] LABS: FIO2 ABG 50
[2016-09-06] MEDS: MESALAMINE 1.2 GM TABLET.DR PO SCH (06:21)
[2016-09-06] MEDS: IV RINGERS,LACTATED 1000ML 1,000 ML IV SCH ×2 (06:22→10:15)
[2016-09-06 06:44] LABS: BASO # 0.1 x10^3/uL (0.0-0.2); BASO % 0 % (0-3); EOS % 0 % (0-3); HEMATOCRIT 30.9 % (36.0-47.0); HEMOGLOBIN 10.5 g/dL (12.0-15.5); LYMPH % 6 % (24-48); MEAN CORPUSCULAR HEMOGLOBIN 29 pg (25-35); MEAN CORPUSCULAR HGB CONC 34 g/dL (31-37); MEAN CORPUSCULAR VOLUME 86 fL (79-100); MONO % 5 % (0-9); NEUT % 90 % (31-73); PLATELET COUNT 284 x10^3/uL (140-400); RED CELL DISTRIBUTION WIDTH 14.5 % (11.5-14.5); WHITE BLOOD COUNT 18.5 x10^3/uL (4.0-11.0)
[2016-09-06 06:51] LABS: ALBUMIN 1.2 g/dL (3.4-5.0); ALBUMIN/GLOBULIN RATIO 0.3 (1.0-1.7); CALCIUM 7.7 mg/dL (8.5-10.1); CREATININE 0.7 mg/dL (0.6-1.0); GFR 86.9; POTASSIUM 4.5 mmol/L (3.5-5.1); TOTAL BILIRUBIN 0.7 mg/dL (0.2-1.0); TOTAL PROTEIN 5.6 g/dL (6.4-8.2)
[2016-09-06 07:00] LABS: INR 1.3 (0.8-1.1)
--- NOTE | 2016-09-06 07:11 | PDOC ---
Infectious Disease Note Subjective Subjective Feeling alright Pain ok Diarrhea controlled ROS ROS GEN: Denies fevers, chills, sweats HEENT: Denies blurred vision, sore throat CV: Denies chest pain RESP: Denies shortness of air, cough GI: Denies n/v/d NEURO: Denies confusion, dizziness MSK: Denies weakness, joint pain/swelling Vital Sign Vital Signs Vital Signs Date Time Temp Pulse Resp B/P Pulse Ox O2 Delivery O2 Flow Rate FiO2 09/06/16 06:57 20 100 Nasal Cannula 3.0 09/06/16 06:00 125 141/72 09/06/16 04:00 98.7 98.7 Physical Exam PHYSICAL EXAM GENERAL: NAD, Alert HEENT: PERRL, OC/OP -clear NECK: Supple, no JVD, no LN LUNGS: Clear. Chest tubes times 2 HEART: S1S2, no gallop, no murmur ABD: Soft, NT, no organomegaly, no rebound EXT: No edema, no cyanosis ROTARY MACHINE OPERATOR: Alert, oriented x 3, no focal neurologic deficit SKIN: No rash IV: RUE PICC - clean Labs Lab Laboratory Tests Test 09/05/16 15:22 09/05/16 17:50 09/05/16 18:15 09/05/16 20:00 Body Fluid pH 6.9 O2 Saturation 96% (92-99) 98% (92-99) Arterial Blood pH 7.10 (7.35-7.45) 7.31 (7.35-7.45) Arterial Blood pCO2 at Patient Temp 47mmHg (35-46) 38mmHg (35-46) Arterial Blood pO2 at Patient Temp 110mmHg (75-108) 131mmHg (75-108) Arterial Blood HCO3 14mmol/L (21-28) 19mmol/L (21-28) Arterial Blood Base Excess -15mmol/L (-3-3) -7mmol/L (-3-3) FiO2 100 100 White Blood Count 36.5x10^3/uL (4.0-11.0) Red Blood Count 2.72x10^6/uL (3.50-5.40) Hemoglobin 7.7g/dL (12.0-15.5) Hematocrit 23.4% (36.0-47.0) Mean Corpuscular Volume 86fL (79-100) Mean Corpuscular Hemoglobin 28pg (25-35) Mean Corpuscular Hemoglobin Concent 33g/dL (31-37) Red Cell Distribution Width 14.2% (11.5-14.5) Platelet Count 359x10^3/uL (140-400) Neutrophils (%) (Auto) 97% (31-73) Lymphocytes (%) (Auto) 2% (24-48) Monocytes (%) (Auto) 1% (0-9) Eosinophils (%) (Auto) 0% (0-3) Basophils (%) (Auto) 0% (0-3) Neutrophils # (Auto) 35.3x10^3uL (1.8-7.7) Lymphocytes # (Auto) 0.6x10^3/uL (1.0-4.8) Monocytes # (Auto) 0.5x10^3/uL (0.0-1.1) Eosinophils # (Auto) 0.0x10^3/uL (0.0-0.7) Basophils # (Auto) 0.2x10^3/uL (0.0-0.2) Segmented Neutrophils % 86% (35-66) Band Neutrophils % 12% (0-9) Lymphocytes % 2% (24-48) Toxic Granulation Slight Platelet Estimate Adequate (ADEQUATE) Polychromasia Slight Hypochromasia Mod Poikilocytosis Slight Anisocytosis Slight Crenated Cell Present Prothrombin Time 16.7SEC (11.7-14.0) Prothromb Time International Ratio 1.4 (0.8-1.1) Sodium Level 138mmol/L (136-145) Potassium Level 4.8mmol/L (3.5-5.1) Chloride Level 105mmol/L (98-107) Carbon Dioxide Level 21mmol/L (21-32) Anion Gap 12 (6-14) Blood Urea Nitrogen 11mg/dL (7-20) Creatinine 0.7mg/dL (0.6-1.0) Estimated GFR (Cockcroft-Gault) 86.9 Glucose Level 171mg/dL (70-99) Calcium Level 7.4mg/dL (8.5-10.1) Test 09/05/16 20:41 09/06/16 06:00 O2 Saturation 98% (92-99) Arterial Blood pH 7.46 (7.35-7.45) Arterial Blood pCO2 at Patient Temp 32mmHg (35-46) Arterial Blood pO2 at Patient Temp 135mmHg (75-108) Arterial Blood HCO3 22mmol/L (21-28) Arterial Blood Base Excess -1mmol/L (-3-3) FiO2 50 White Blood Count 18.5x10^3/uL (4.0-11.0) Red Blood Count 3.60x10^6/uL (3.50-5.40) Hemoglobin 10.5g/dL (12.0-15.5) Hematocrit 30.9% (36.0-47.0) Mean Corpuscular Volume 86fL (79-100) Mean Corpuscular Hemoglobin 29pg (25-35) Mean Corpuscular Hemoglobin Concent 34g/dL (31-37) Red Cell Distribution Width 14.5% (11.5-14.5) Platelet Count 284x10^3/uL (140-400) Neutrophils (%) (Auto) 90% (31-73) Lymphocytes (%) (Auto) 6% (24-48) Monocytes (%) (Auto) 5% (0-9) Eosinophils (%) (Auto) 0% (0-3) Basophils (%) (Auto) 0% (0-3) Neutrophils # (Auto) 16.6x10^3uL (1.8-7.7) Lymphocytes # (Auto) 1.0x10^3/uL (1.0-4.8) Monocytes # (Auto) 0.8x10^3/uL (0.0-1.1) Eosinophils # (Auto) 0.0x10^3/uL (0.0-0.7) Basophils # (Auto) 0.1x10^3/uL (0.0-0.2) Prothrombin Time 15.0SEC (11.7-14.0) Prothromb Time International Ratio 1.3 (0.8-1.1) Sodium Level 140mmol/L (136-145) Potassium Level 4.5mmol/L (3.5-5.1) Chloride Level 105mmol/L (98-107) Carbon Dioxide Level 26mmol/L (21-32) Anion Gap 9 (6-14) Blood Urea Nitrogen 12mg/dL (7-20) Creatinine 0.7mg/dL (0.6-1.0) Estimated GFR (Cockcroft-Gault) 86.9 BUN/Creatinine Ratio 17 (6-20) Glucose Level 100mg/dL (70-99) Calcium Level 7.7mg/dL (8.5-10.1) Total Bilirubin 0.7mg/dL (0.2-1.0) Aspartate Amino Transf (AST/SGOT) 110U/L (15-37) Alanine Aminotransferase (ALT/SGPT) 63U/L (14-59) Alkaline Phosphatase 79U/L (46-116) Total Protein 5.6g/dL (6.4-8.2) Albumin 1.2g/dL (3.4-5.0) Albumin/Globulin Ratio 0.3 (1.0-1.7) Objective Assessment S/p VATS/decortication 09/05 pH 6.9 Leukocytosis, better Diarrhea - chronic problem at home - better. C-diff neg S/p Bone marrow 08/29. Neg path - reactive marrow CAP Right empyema. s/p chest tube placement, 08/25 and 08/30 - pH 7.1. Cults neg Fever. better Sepsis with lactic acidosis Suspected COPD Hypoxia H/o C-diff Plan Plan of Care Continue Zyvox and Zosyn for now f/u cults Cont probiotics Monitor labs NGHIA SONI MD Sep 06, 2016 07:11
--- NOTE | 2016-09-06 07:21 | RAD ---
Portable chest, 09/05/2016: History: Postop evaluation, decortication, VATS Comparison is made to a study from 09/01/2016. The pigtail pleural drains have been removed on the right and replaced with 2 large caliber chest tubes extending into the apical region. A right PICC remains in place extending into the superior vena cava. There is now extensive volume loss and consolidation in the right lung with left to right shift of the heart and mediastinum. There is ongoing extensive pleural thickening on the right. A small right-sided pneumothorax is present. The left chest is clear. The pulmonary vascularity as visualized on the left is normal. No pleural fluid or pneumothorax is evident on the left. IMPRESSION: 1. Extensive consolidation and atelectasis has developed in the right lung with volume loss in the right chest. 2. Ongoing irregular pleural thickening on the right with a small right pneumothorax. 3. Clear left chest.
--- NOTE | 2016-09-06 07:45 | RAD ---
Portable chest, 09/06/2016: History: Postop evaluation Comparison is made yesterday study. A right PICC extends into the superior vena cava. Two large caliber chest tubes remain in place extending into the right apical region. The small right-sided pneumothorax has nearly completely resolved. There is improved aeration of the right lung although moderate patchy infiltrates persist in the right mid and lower chest. Diffuse pleural thickening persists on the right. The heart size is normal. The left chest remains clear. IMPRESSION: 1. Improved aeration/expansion of the right lung with moderate persistent patchy infiltrates. 2. Nearly complete resolution of the small right pneumothorax. 3. The left chest remains clear
[2016-09-06] MEDS: CHOLECALCIFEROL (VITAMIN D3) 1,000 UNIT TABLET PO SCH (08:27)
[2016-09-06] MEDS: LACTOBACILLUS ACIDOPH & BULGAR 1 TABLET. PO SCH ×3 (08:27→17:45)
[2016-09-06] MEDS: ASCORBIC ACID 500 MG TABLET PO SCH (08:28)
[2016-09-06] MEDS: LIPASE/PROTEAS/AMYLASE 5/17/27 CAPSULE.DR. PO SCH ×3 (08:28→17:46)
[2016-09-06] MEDS: PANTOPRAZOLE 40 MG TABLET. PO SCH (08:28)
[2016-09-06] MEDS: CETIRIZINE HCL 10 MG TABLET PO SCH (08:28)
[2016-09-06] MEDS: ALBUTEROL SULFATE 2.5 MG/3 ML NEBU. NEB SCH ×4 (08:58→19:20)
--- NOTE | 2016-09-06 09:18 | PDOC ---
Provider Note Provider Note DATE OF f/u: 09/06/2016 c/c: Leukocytosis with 1% blasts in a patient with pneumonia. HISTORY OF PRESENT ILLNESS: The patient is a 55-year-old female who presented to [facility] Emergency Room 08/21/2016 with complaints of worsening cough and pleuritic chest pain and dyspnea of one week duration. In the Emergency Room, she was noted to have tachycardia and elevated WBC count of 57,000 and lactic acid of 4.1. She was diagnosed with sepsis. She underwent a chest x-ray that revealed right lower lobe pneumonia with small pneumonic effusion. She underwent CT scan of the abdomen on 08/21/2016 that revealed right lower lobe pneumonia. She underwent a CT scan of the chest on 08/22/2016 that revealed multilobar pneumonia, small to moderate multiloculated right pleural effusion, which might indicate a parapneumonic effusion versus empyema. There is also evidence of mild emphysema. She was started on antibiotics, however, she has progressive dyspnea and hypoxia and hence she was transferred to [facility]. Infectious Disease and pulmonary consultation was obtained, she was started on antibiotics. She underwent right chest tube insertion on 08/25/2016, 130 mL of whitish cloudy right pleural fluid was sent to the lab for evaluation. Her WBC count on 08/26/2016 was 32.2 and on 08/27/2016, it was 54.0. In addition, there was evidence of 23% bands, 5% metamyelocytes, 8%, myelocytes, 1% blasts and hence I was asked to see the patient for further evaluation of leukocytosis. Her hemoglobin was 11.9 with a platelet count of 536. PAST MEDICAL HISTORY: COPD. REVIEW OF SYSTEMS: no n/v, has rt sided CP PHYSICAL EXAMINATION: GENERAL APPEARANCE: The patient is a 55-year-old female who is in no acute cardiorespiratory distress. CHEST: Bilaterally symmetrical, decreased air entry on the right side. HEART: S1, S2 normal. ABDOMEN: Soft, nontender. No hepatosplenomegaly. CENTRAL NERVOUS SYSTEM: No focal neurological deficits. LABORATORY DATA: On 08/27/2016, WBC 54, hemoglobin 11.9, MCV 83, platelet count 536, bands 23%, metamyelocytes 5%, myelocytes 8% and peripheral smear on 08/26/2016 revealed presence of blasts at 1%. IMPRESSION AND PLAN: 1. Severe leukocytosis with a WBC count of 54,000 on 08/27/2016 and hemoglobin of 11.9, platelet count 536,000. There was evidence of elevated bands at 23%, elevated metamyelocytes of 5%, myelocytes of 8%, and 1% blasts. With the presence of sepsis, pneumonia and empyema, this is most likely reactive process. However, in view of worsening myelocytes and the presence of blasts, I would pursue with the bone marrow aspiration and biopsy to make sure that she does not have a primary bone marrow disorder. WBC now worse at 18.5, reactive due to surgery, monitor cbc S/p bone marrow bx 08/29/16. I d/w pathologist, no increased blasts to suggest leukemia, final results: The findings appear to be most compatible with a reactive neutrophilic leukocytosis and thrombocytosis. 2. Pneumonia. Continue antibiotics. Appreciate ID consultation. 3. Empyema. Status post right thoracentesis and chest tube placement. s/p Right VATS, drainage of empyema and pulmonary decortication 09/05/16 4. Sepsis with lactic acidosis. 5. Fever, improving. 6. Chronic obstructive pulmonary disease. SARAVANAN RAMIREZ MD Sep 06, 2016 09:17
--- NOTE | 2016-09-06 11:44 | PDOC ---
PROGRESS NOTES Chief Complaint Chief Complaint Acute hypoxic respiratory failure 1. PNA: multilobar. on broad spectrum coverage (zosyn, linezolid) 2. Empyema: loculated, now double CT in place, TPA administered in both . unfortunately, 3rd fluid pocket present. consult to CT surg for decortication 3. COPD exacerbation: resolving 4. Sepsis: resolved 5. Leukocytosis with severe left shift: continues to improve. leukemoid rxn from infect, confirmed by BM bx obtained 08/29. 6. HTN, tachycardia: recurrent, after several days of soft Bp and low HR. tolerating tachycardia for now. restart BB if persistent. 7. BP at low normal, prob influenced by IV narcotics. IVF boluses PRN 8. UC: on mesalamine, pancreatic enzymes, macrobiotics 9. Depression: on zyprexa 10. Smoker: nicotine patch 11. Migraine: imitrex PRN 12. chest pain: musculoskeletal w/ CT: fentanyl, Oxy PO PRN History of Present Illness History of Present Illness Patient sitting up in bed when evaluated this AM in ICU. Pt had R vats, drainage of empyema and pulmonary decortication. Double chest tubes in place. Reports feeling improved. Adequate O2 sat on NC 3.0 L. Vitals Vitals Vital Signs Date Time Temp Pulse Resp B/P Pulse Ox O2 Delivery O2 Flow Rate FiO2 09/06/16 08:59 96 Nasal Cannula 3.0 09/06/16 08:00 119 122/62 09/06/16 06:57 20 09/06/16 04:00 98.7 98.7 Physical Exam General: Alert, Oriented X3, No acute distress Heart: Normal S1, Normal S2, No murmurs, Other (tachycardic) Lungs: Other (decr bs R, crackles) Abdomen: Soft, No tenderness Extremities: No edema Skin: Other (chest tubes on R, otherwise atraumatic) Labs LABS Laboratory Tests Test 09/05/16 15:22 09/05/16 17:50 09/05/16 18:15 09/05/16 20:00 Body Fluid pH 6.9 O2 Saturation 96% (92-99) 98% (92-99) Arterial Blood pH 7.10 (7.35-7.45) 7.31 (7.35-7.45) Arterial Blood pCO2 at Patient Temp 47mmHg (35-46) 38mmHg (35-46) Arterial Blood pO2 at Patient Temp 110mmHg (75-108) 131mmHg (75-108) Arterial Blood HCO3 14mmol/L (21-28) 19mmol/L (21-28) Arterial Blood Base Excess -15mmol/L (-3-3) -7mmol/L (-3-3) FiO2 100 100 White Blood Count 36.5x10^3/uL (4.0-11.0) Red Blood Count 2.72x10^6/uL (3.50-5.40) Hemoglobin 7.7g/dL (12.0-15.5) Hematocrit 23.4% (36.0-47.0) Mean Corpuscular Volume 86fL (79-100) Mean Corpuscular Hemoglobin 28pg (25-35) Mean Corpuscular Hemoglobin Concent 33g/dL (31-37) Red Cell Distribution Width 14.2% (11.5-14.5) Platelet Count 359x10^3/uL (140-400) Neutrophils (%) (Auto) 97% (31-73) Lymphocytes (%) (Auto) 2% (24-48) Monocytes (%) (Auto) 1% (0-9) Eosinophils (%) (Auto) 0% (0-3) Basophils (%) (Auto) 0% (0-3) Neutrophils # (Auto) 35.3x10^3uL (1.8-7.7) Lymphocytes # (Auto) 0.6x10^3/uL (1.0-4.8) Monocytes # (Auto) 0.5x10^3/uL (0.0-1.1) Eosinophils # (Auto) 0.0x10^3/uL (0.0-0.7) Basophils # (Auto) 0.2x10^3/uL (0.0-0.2) Segmented Neutrophils % 86% (35-66) Band Neutrophils % 12% (0-9) Lymphocytes % 2% (24-48) Toxic Granulation Slight Platelet Estimate Adequate (ADEQUATE) Polychromasia Slight Hypochromasia Mod Poikilocytosis Slight Anisocytosis Slight Crenated Cell Present Prothrombin Time 16.7SEC (11.7-14.0) Prothromb Time International Ratio 1.4 (0.8-1.1) Sodium Level 138mmol/L (136-145) Potassium Level 4.8mmol/L (3.5-5.1) Chloride Level 105mmol/L (98-107) Carbon Dioxide Level 21mmol/L (21-32) Anion Gap 12 (6-14) Blood Urea Nitrogen 11mg/dL (7-20) Creatinine 0.7mg/dL (0.6-1.0) Estimated GFR (Cockcroft-Gault) 86.9 Glucose Level 171mg/dL (70-99) Calcium Level 7.4mg/dL (8.5-10.1) Test 09/05/16 20:41 09/06/16 06:00 O2 Saturation 98% (92-99) Arterial Blood pH 7.46 (7.35-7.45) Arterial Blood pCO2 at Patient Temp 32mmHg (35-46) Arterial Blood pO2 at Patient Temp 135mmHg (75-108) Arterial Blood HCO3 22mmol/L (21-28) Arterial Blood Base Excess -1mmol/L (-3-3) FiO2 50 White Blood Count 18.5x10^3/uL (4.0-11.0) Red Blood Count 3.60x10^6/uL (3.50-5.40) Hemoglobin 10.5g/dL (12.0-15.5) Hematocrit 30.9% (36.0-47.0) Mean Corpuscular Volume 86fL (79-100) Mean Corpuscular Hemoglobin 29pg (25-35) Mean Corpuscular Hemoglobin Concent 34g/dL (31-37) Red Cell Distribution Width 14.5% (11.5-14.5) Platelet Count 284x10^3/uL (140-400) Neutrophils (%) (Auto) 90% (31-73) Lymphocytes (%) (Auto) 6% (24-48) Monocytes (%) (Auto) 5% (0-9) Eosinophils (%) (Auto) 0% (0-3) Basophils (%) (Auto) 0% (0-3) Neutrophils # (Auto) 16.6x10^3uL (1.8-7.7) Lymphocytes # (Auto) 1.0x10^3/uL (1.0-4.8) Monocytes # (Auto) 0.8x10^3/uL (0.0-1.1) Eosinophils # (Auto) 0.0x10^3/uL (0.0-0.7) Basophils # (Auto) 0.1x10^3/uL (0.0-0.2) Prothrombin Time 15.0SEC (11.7-14.0) Prothromb Time International Ratio 1.3 (0.8-1.1) Sodium Level 140mmol/L (136-145) Potassium Level 4.5mmol/L (3.5-5.1) Chloride Level 105mmol/L (98-107) Carbon Dioxide Level 26mmol/L (21-32) Anion Gap 9 (6-14) Blood Urea Nitrogen 12mg/dL (7-20) Creatinine 0.7mg/dL (0.6-1.0) Estimated GFR (Cockcroft-Gault) 86.9 BUN/Creatinine Ratio 17 (6-20) Glucose Level 100mg/dL (70-99) Calcium Level 7.7mg/dL (8.5-10.1) Total Bilirubin 0.7mg/dL (0.2-1.0) Aspartate Amino Transf (AST/SGOT) 110U/L (15-37) Alanine Aminotransferase (ALT/SGPT) 63U/L (14-59) Alkaline Phosphatase 79U/L (46-116) Total Protein 5.6g/dL (6.4-8.2) Albumin 1.2g/dL (3.4-5.0) Albumin/Globulin Ratio 0.3 (1.0-1.7) Review of Systems Review of Systems co soa co weakness Assessment and Plan Assessmemt and Plan ASSESSMENT: 1. PNA: multilobar. 2. Empyema 3. COPD exacerbation: resolving 4. Sepsis: resolved 5. Leukocytosis with severe left shift: continues to improve. leukemoid rxn from infect, confirmed by BM bx obtained 08/29. 6. HTN, tachycardia: recurrent, after several days of soft Bp and low HR. tolerating tachycardia for now. 7. BP changes; improved 8. UC: on mesalamine, pancreatic enzymes, macrobiotics 9. Depression: on zyprexa 10. Smoker: nicotine patch 11. Migraine: imitrex PRN 12. chest pain: musculoskeletal w/ CT 13. Prophylaxis: lovenox, PPI PLAN: - cont broad spectrum coverage (zosyn, linezolid) for PNA - pt had R vats, drainage of empyema and pulmonary decortication; double CT in place on R - repeat labs - PT/OT as tolerated - appreciate subspecialty input - Dispo: no acute plans for D/C with ongoing interventions w/ empyema. will prob need SNF rather than LTAC at D/C Problems: Comment Review of Relevant I have reviewed the following items randi (where applicable) has been applied. Labs Laboratory Tests Test 09/05/16 05:45 09/05/16 15:22 09/05/16 17:50 09/05/16 18:15 White Blood Count 14.2x10^3/uL (4.0-11.0) Red Blood Count 2.67x10^6/uL (3.50-5.40) Hemoglobin 7.4g/dL (12.0-15.5) Hematocrit 22.7% (36.0-47.0) Mean Corpuscular Volume 85fL (79-100) Mean Corpuscular Hemoglobin 28pg (25-35) Mean Corpuscular Hemoglobin Concent 33g/dL (31-37) Red Cell Distribution Width 15.0% (11.5-14.5) Platelet Count 466x10^3/uL (140-400) Neutrophils (%) (Auto) 86% (31-73) Lymphocytes (%) (Auto) 7% (24-48) Monocytes (%) (Auto) 5% (0-9) Eosinophils (%) (Auto) 2% (0-3) Basophils (%) (Auto) 1% (0-3) Neutrophils # (Auto) 12.2x10^3uL (1.8-7.7) Lymphocytes # (Auto) 0.9x10^3/uL (1.0-4.8) Monocytes # (Auto) 0.6x10^3/uL (0.0-1.1) Eosinophils # (Auto) 0.3x10^3/uL (0.0-0.7) Basophils # (Auto) 0.1x10^3/uL (0.0-0.2) Sodium Level 137mmol/L (136-145) Potassium Level 4.3mmol/L (3.5-5.1) Chloride Level 101mmol/L (98-107) Carbon Dioxide Level 30mmol/L (21-32) Anion Gap 6 (6-14) Blood Urea Nitrogen 7mg/dL (7-20) Creatinine 0.7mg/dL (0.6-1.0) Estimated GFR (Cockcroft-Gault) 86.9 Glucose Level 72mg/dL (70-99) Calcium Level 8.1mg/dL (8.5-10.1) Body Fluid pH 6.9 O2 Saturation 96% (92-99) 98% (92-99) Arterial Blood pH 7.10 (7.35-7.45) 7.31 (7.35-7.45) Arterial Blood pCO2 at Patient Temp 47mmHg (35-46) 38mmHg (35-46) Arterial Blood pO2 at Patient Temp 110mmHg (75-108) 131mmHg (75-108) Arterial Blood HCO3 14mmol/L (21-28) 19mmol/L (21-28) Arterial Blood Base Excess -15mmol/L (-3-3) -7mmol/L (-3-3) FiO2 100 100 Test 09/05/16 20:00 09/05/16 20:41 09/06/16 06:00 White Blood Count 36.5x10^3/uL (4.0-11.0) 18.5x10^3/uL (4.0-11.0) Red Blood Count 2.72x10^6/uL (3.50-5.40) 3.60x10^6/uL (3.50-5.40) Hemoglobin 7.7g/dL (12.0-15.5) 10.5g/dL (12.0-15.5) Hematocrit 23.4% (36.0-47.0) 30.9% (36.0-47.0) Mean Corpuscular Volume 86fL (79-100) 86fL (79-100) Mean Corpuscular Hemoglobin 28pg (25-35) 29pg (25-35) Mean Corpuscular Hemoglobin Concent 33g/dL (31-37) 34g/dL (31-37) Red Cell Distribution Width 14.2% (11.5-14.5) 14.5% (11.5-14.5) Platelet Count 359x10^3/uL (140-400) 284x10^3/uL (140-400) Neutrophils (%) (Auto) 97% (31-73) 90% (31-73) Lymphocytes (%) (Auto) 2% (24-48) 6% (24-48) Monocytes (%) (Auto) 1% (0-9) 5% (0-9) Eosinophils (%) (Auto) 0% (0-3) 0% (0-3) Basophils (%) (Auto) 0% (0-3) 0% (0-3) Neutrophils # (Auto) 35.3x10^3uL (1.8-7.7) 16.6x10^3uL (1.8-7.7) Lymphocytes # (Auto) 0.6x10^3/uL (1.0-4.8) 1.0x10^3/uL (1.0-4.8) Monocytes # (Auto) 0.5x10^3/uL (0.0-1.1) 0.8x10^3/uL (0.0-1.1) Eosinophils # (Auto) 0.0x10^3/uL (0.0-0.7) 0.0x10^3/uL (0.0-0.7) Basophils # (Auto) 0.2x10^3/uL (0.0-0.2) 0.1x10^3/uL (0.0-0.2) Segmented Neutrophils % 86% (35-66) Band Neutrophils % 12% (0-9) Lymphocytes % 2% (24-48) Toxic Granulation Slight Platelet Estimate Adequate (ADEQUATE) Polychromasia Slight Hypochromasia Mod Poikilocytosis Slight Anisocytosis Slight Crenated Cell Present Prothrombin Time 16.7SEC (11.7-14.0) 15.0SEC (11.7-14.0) Prothromb Time International Ratio 1.4 (0.8-1.1) 1.3 (0.8-1.1) Sodium Level 138mmol/L (136-145) 140mmol/L (136-145) Potassium Level 4.8mmol/L (3.5-5.1) 4.5mmol/L (3.5-5.1) Chloride Level 105mmol/L (98-107) 105mmol/L (98-107) Carbon Dioxide Level 21mmol/L (21-32) 26mmol/L (21-32) Anion Gap 12 (6-14) 9 (6-14) Blood Urea Nitrogen 11mg/dL (7-20) 12mg/dL (7-20) Creatinine 0.7mg/dL (0.6-1.0) 0.7mg/dL (0.6-1.0) Estimated GFR (Cockcroft-Gault) 86.9 86.9 Glucose Level 171mg/dL (70-99) 100mg/dL (70-99) Calcium Level 7.4mg/dL (8.5-10.1) 7.7mg/dL (8.5-10.1) O2 Saturation 98% (92-99) Arterial Blood pH 7.46 (7.35-7.45) Arterial Blood pCO2 at Patient Temp 32mmHg (35-46) Arterial Blood pO2 at Patient Temp 135mmHg (75-108) Arterial Blood HCO3 22mmol/L (21-28) Arterial Blood Base Excess -1mmol/L (-3-3) FiO2 50 BUN/Creatinine Ratio 17 (6-20) Total Bilirubin 0.7mg/dL (0.2-1.0) Aspartate Amino Transf (AST/SGOT) 110U/L (15-37) Alanine Aminotransferase (ALT/SGPT) 63U/L (14-59) Alkaline Phosphatase 79U/L (46-116) Total Protein 5.6g/dL (6.4-8.2) Albumin 1.2g/dL (3.4-5.0) Albumin/Globulin Ratio 0.3 (1.0-1.7) Laboratory Tests Test 09/05/16 15:22 09/05/16 17:50 09/05/16 18:15 09/05/16 20:00 Body Fluid pH 6.9 O2 Saturation 96% (92-99) 98% (92-99) Arterial Blood pH 7.10 (7.35-7.45) 7.31 (7.35-7.45) Arterial Blood pCO2 at Patient Temp 47mmHg (35-46) 38mmHg (35-46) Arterial Blood pO2 at Patient Temp 110mmHg (75-108) 131mmHg (75-108) Arterial Blood HCO3 14mmol/L (21-28) 19mmol/L (21-28) Arterial Blood Base Excess -15mmol/L (-3-3) -7mmol/L (-3-3) FiO2 100 100 White Blood Count 36.5x10^3/uL (4.0-11.0) Red Blood Count 2.72x10^6/uL (3.50-5.40) Hemoglobin 7.7g/dL (12.0-15.5) Hematocrit 23.4% (36.0-47.0) Mean Corpuscular Volume 86fL (79-100) Mean Corpuscular Hemoglobin 28pg (25-35) Mean Corpuscular Hemoglobin Concent 33g/dL (31-37) Red Cell Distribution Width 14.2% (11.5-14.5) Platelet Count 359x10^3/uL (140-400) Neutrophils (%) (Auto) 97% (31-73) Lymphocytes (%) (Auto) 2% (24-48) Monocytes (%) (Auto) 1% (0-9) Eosinophils (%) (Auto) 0% (0-3) Basophils (%) (Auto) 0% (0-3) Neutrophils # (Auto) 35.3x10^3uL (1.8-7.7) Lymphocytes # (Auto) 0.6x10^3/uL (1.0-4.8) Monocytes # (Auto) 0.5x10^3/uL (0.0-1.1) Eosinophils # (Auto) 0.0x10^3/uL (0.0-0.7) Basophils # (Auto) 0.2x10^3/uL (0.0-0.2) Segmented Neutrophils % 86% (35-66) Band Neutrophils % 12% (0-9) Lymphocytes % 2% (24-48) Toxic Granulation Slight Platelet Estimate Adequate (ADEQUATE) Polychromasia Slight Hypochromasia Mod Poikilocytosis Slight Anisocytosis Slight Crenated Cell Present Prothrombin Time 16.7SEC (11.7-14.0) Prothromb Time International Ratio 1.4 (0.8-1.1) Sodium Level 138mmol/L (136-145) Potassium Level 4.8mmol/L (3.5-5.1) Chloride Level 105mmol/L (98-107) Carbon Dioxide Level 21mmol/L (21-32) Anion Gap 12 (6-14) Blood Urea Nitrogen 11mg/dL (7-20) Creatinine 0.7mg/dL (0.6-1.0) Estimated GFR (Cockcroft-Gault) 86.9 Glucose Level 171mg/dL (70-99) Calcium Level 7.4mg/dL (8.5-10.1) Test 09/05/16 20:41 09/06/16 06:00 O2 Saturation 98% (92-99) Arterial Blood pH 7.46 (7.35-7.45) Arterial Blood pCO2 at Patient Temp 32mmHg (35-46) Arterial Blood pO2 at Patient Temp 135mmHg (75-108) Arterial Blood HCO3 22mmol/L (21-28) Arterial Blood Base Excess -1mmol/L (-3-3) FiO2 50 White Blood Count 18.5x10^3/uL (4.0-11.0) Red Blood Count 3.60x10^6/uL (3.50-5.40) Hemoglobin 10.5g/dL (12.0-15.5) Hematocrit 30.9% (36.0-47.0) Mean Corpuscular Volume 86fL (79-100) Mean Corpuscular Hemoglobin 29pg (25-35) Mean Corpuscular Hemoglobin Concent 34g/dL (31-37) Red Cell Distribution Width 14.5% (11.5-14.5) Platelet Count 284x10^3/uL (140-400) Neutrophils (%) (Auto) 90% (31-73) Lymphocytes (%) (Auto) 6% (24-48) Monocytes (%) (Auto) 5% (0-9) Eosinophils (%) (Auto) 0% (0-3) Basophils (%) (Auto) 0% (0-3) Neutrophils # (Auto) 16.6x10^3uL (1.8-7.7) Lymphocytes # (Auto) 1.0x10^3/uL (1.0-4.8) Monocytes # (Auto) 0.8x10^3/uL (0.0-1.1) Eosinophils # (Auto) 0.0x10^3/uL (0.0-0.7) Basophils # (Auto) 0.1x10^3/uL (0.0-0.2) Prothrombin Time 15.0SEC (11.7-14.0) Prothromb Time International Ratio 1.3 (0.8-1.1) Sodium Level 140mmol/L (136-145) Potassium Level 4.5mmol/L (3.5-5.1) Chloride Level 105mmol/L (98-107) Carbon Dioxide Level 26mmol/L (21-32) Anion Gap 9 (6-14) Blood Urea Nitrogen 12mg/dL (7-20) Creatinine 0.7mg/dL (0.6-1.0) Estimated GFR (Cockcroft-Gault) 86.9 BUN/Creatinine Ratio 17 (6-20) Glucose Level 100mg/dL (70-99) Calcium Level 7.7mg/dL (8.5-10.1) Total Bilirubin 0.7mg/dL (0.2-1.0) Aspartate Amino Transf (AST/SGOT) 110U/L (15-37) Alanine Aminotransferase (ALT/SGPT) 63U/L (14-59) Alkaline Phosphatase 79U/L (46-116) Total Protein 5.6g/dL (6.4-8.2) Albumin 1.2g/dL (3.4-5.0) Albumin/Globulin Ratio 0.3 (1.0-1.7) Microbiology 09/05/16 Gram Stain - Final, Complete 09/05/16 Gram Stain - Final, Complete Medications Current Medications Acetaminophen (Tylenol) 325 mg PRN Q6HRS PRN PO MILD PAIN / TEMP Last administered on 08/26/16 08:29; Start 08/25/16 at 12:45 Acetaminophen/ Hydrocodone Bitart (Lortab 5/325) 1 tab PRN Q6HRS PRN PO MODERATE PAIN Last administered on 08/27/16 02:06; Start 08/25/16 at 12:45; Stop 08/29/16 at 16:41; Status DC Hydralazine HCl (Apresoline) 10 mg PRN Q4HRS PRN IVP ELEVATED BP, SEE COMMENTS Last administered on 08/26/16 05:07; Start 08/25/16 at 12:45 Ondansetron HCl (Zofran) 4 mg PRN Q8HRS PRN IV NAUSEA/VOMITING Last administered on 08/25/16 15:42; Start 08/25/16 at 12:45; Stop 08/27/16 at 08:44 ; Status DC Albuterol Sulfate 2.5 mg 2.5 mg PRN Q4HRS PRN NEB SHORTNESS OF BREATH; Start at 12:45 Piperacillin Sod/ Tazobactam Sod 3.375 gm/Sodium Chloride 50 ml @ 100 mls/hr Q6HRS IV Last administered on 09/06/16 06:21; Start 08/25/16 at 13:00 Linezolid (Zyvox Premix) 300 ml @ 300 mls/hr Q12HR IV Last administered on 08:30; Start 08/25/16 at 14:00 Piperacillin Sod/ Tazobactam Sod 1 each 1 each PRN DAILY PRN MC SEE COMMENTS; Start 08/25/16 at 13:45; Stop 08/27/16 at 12:41; Status DC Levofloxacin/ Dextrose (LEVAQUIN 750mg PREMIX) 150 ml @ 100 mls/hr Q24H IV Last administered on 08/28/16 13:51; Start 08/25/16 at 14:00; Stop 08/28/16 at 14:37; Status DC Lidocaine/Sodium Bicarbonate (Buffered Lidocaine 1%) 20 ml STK-MED ONCE IJ ; Start 08/25/16 at 14:00; Stop 08/25/16 at 14:01; Status DC Lidocaine/Sodium Bicarbonate (Buffered Lidocaine 1%) 5 ml 1X ONCE IJ Last administered on 08/25/16 14:59; Start 08/25/16 at 15:00; Stop 08/25/16 at 15:01 ; Status DC Info (Do NOT chart on this placeholder) 1 each 1X ONCE MC ; Start 08/25/16 at 17:00; Stop 08/25/16 at 17:01; Status UNV Pneumococcal Polyvalent Vaccine (Do NOT chart on this placeholder) 1 each 1X ONCE MC ; Start 08/25/16 at 17:00; Stop 08/25/16 at 17:01; Status UNV Influenza Virus Vaccine Quadrival (Fluarix Quad [id number] Syringe) 0.5 ml ONCE ONCE VAX IM ; Start 08/26/16 at 09:00; Stop 08/26/16 at 09:01; Status DC Pneumococcal Polyvalent Vaccine (Pneumovax 23) 0.5 ml ONCE ONCE VAX IM ; Start 08/26/16 at 09:00; Stop 08/26/16 at 09:01; Status DC Enoxaparin Sodium (Lovenox 40mg Syringe) 40 mg Q24H SQ Last administered on 08:19; Start 08/26/16 at 09:00; Stop 08/29/16 at 11:45; Status DC Fentanyl Citrate (Fentanyl 2ml Vial) 25 mcg PRN Q4HRS PRN IV PAIN Last administered on 08/27/16 06:13; Start 08/26/16 at 08:30; Stop 08/29/16 at 15:07 ; Status DC Potassium Chloride (Klor-Con) 40 meq 1X ONCE PO Last administered on 11:24; Start 08/26/16 at 10:45; Stop 08/26/16 at 10:49; Status DC Mesalamine (Lialda) 4.8 gm DAILY06 PO Last administered on 09/06/16 06:21; Start 08/26/16 at 13:30 Olanzapine (Zyprexa) 2.5 mg HS PO Last administered on 09/04/16 20:53; Start 08/26/16 at 21:00 Sumatriptan Succinate (Imitrex) 100 mg PRN Q2HR PRN PO MIGRAINE HEADACHE Last administered on 09/04/16 13:31; Start 08/26/16 at 13:30 Tizanidine HCl (Zanaflex) 4 mg QHS PO Last administered on 08/26/16 19:57; Start 08/26/16 at 21:00; Stop 08/26/16 at 21:00; Status DC Tramadol HCl (Ultram) 50 mg BID PO Last administered on 08/31/16 07:48; Start 08/26/16 at 14:00; Stop 08/31/16 at 15:54; Status DC Ascorbic Acid (Vitamin C) 1,000 mg DAILY PO Last administered on 09/06/16 08: 28; Start 08/27/16 at 09:00 Amylase/Lipase/ Protease (Zenpep 5,000) 5 cap TIDWMEALS PO Last administered on 09/06/16 08:28; Start 08/26/16 at 17:00 Niacin (Slo-Niacin) 500 mg QHS PO Last administered on 09/04/16 20:53; Start 08/26/16 at 21:00 Pantoprazole Sodium (Protonix) 40 mg DAILYAC PO Last administered on 09/06/16 08:28; Start 08/26/16 at 14:00 Non-Formulary Medication 1 tab DAILY PO ; Start 08/27/16 at 09:00; Status UNV Diphenoxylate HCl/ Atropine (Lomotil) 1 tab PRN QID PRN PO DIARRHEA Last administered on 09/03/16 17:27; Start 08/26/16 at 13:45 Tizanidine HCl (Zanaflex) 20 mg QHS PO Last administered on 09/04/16 20:53; Start 08/26/16 at 21:00 Acetaminophen/ Hydrocodone Bitart (Lortab 5/325) 2 tab PRN Q6HRS PRN PO SEVERE PAIN Last administered on 08/29/16 10:47; Start 08/27/16 at 04:45; Stop at 16:41; Status DC Ondansetron HCl (Zofran) 4 mg PRN Q6HRS PRN IV NAUSEA/VOMITING Last administered on 09/05/16 23:16; Start 08/27/16 at 08:42 Vancomycin HCl 125 mg [id number] PO Last administered on 08/28/16 20:54; Start at 16:00; Stop 08/29/16 at 10:24; Status DC Lactobacillus Acidophilus 1 tab 1 tab TIDWMEALS PO Last administered on 08:27; Start 08/27/16 at 17:00 Sodium Chloride (Iv Sodium Chloride 0.9% 500ml Bag) 500 ml @ 500 mls/hr 1X ONCE IV Last administered on 1/15/17at 00:52; Start 08/28/16 at 01:00; Stop at 01:59; Status DC Nicotine (Nicoderm Cq 21mg) 1 patch PRN DAILY PRN TD SMOKING CESSATION; Start 08/28/16 at 09:30 Cetirizine HCl (Zyrtec) 10 mg DAILY PO Last administered on 09/06/16 08:28; Start 08/28/16 at 10:00 Vitamin D (Vitamin D3) 1,000 unit DAILY PO Last administered on 09/06/16 08:27 ; Start 08/28/16 at 10:00 Iohexol (Omnipaque 300 Mg/ml) 75 ml 1X ONCE IV Last administered on 08/28/16 10:53; Start 08/28/16 at 10:15; Stop 08/28/16 at 10:16; Status DC Info (Do NOT chart on this entry -- for MONITORING) 1 each PRN DAILY PRN MC SEE COMMENTS; Start 08/28/16 at 10:00; Stop 08/30/16 at 09:59; Status DC Potassium Chloride (Klor-Con) 40 meq 1X ONCE PO Last administered on 13:52; Start 08/28/16 at 13:00; Stop 08/28/16 at 13:01; Status DC Lidocaine/Sodium Bicarbonate (Buffered Lidocaine 1%) 20 ml STK-MED ONCE IJ ; Start 08/29/16 at 08:36; Stop 08/29/16 at 08:37; Status DC Naloxone HCl (Narcan) 0.4 mg STK-MED ONCE .ROUTE ; Start 08/29/16 at 08:37; Stop 08/29/16 at 08:38; Status DC Flumazenil (Romazicon) 0.5 mg STK-MED ONCE IV ; Start 08/29/16 at 08:37; Stop at 08:38; Status DC Midazolam HCl (Versed) 5 mg STK-MED ONCE .ROUTE ; Start 08/29/16 at 08:37; Stop 08/29/16 at 08:38; Status DC Fentanyl Citrate (Fentanyl 5ml Vial) 250 mcg STK-MED ONCE .ROUTE ; Start at 08:37; Stop 08/29/16 at 08:38; Status DC Lidocaine/Sodium Bicarbonate (Buffered Lidocaine 1%) 6 ml 1X ONCE IJ Last administered on 08/29/16 09:09; Start 08/29/16 at 09:15; Stop 08/29/16 at 09:16 ; Status DC Midazolam HCl (Versed) 2 mg 1X ONCE IV Last administered on 08/29/16 09:08; Start 08/29/16 at 09:15; Stop 08/29/16 at 09:16; Status DC Fentanyl Citrate (Fentanyl 5ml Vial) 100 mcg 1X ONCE IV Last administered on 09:08; Start 08/29/16 at 09:15; Stop 08/29/16 at 09:16; Status DC Enoxaparin Sodium (Lovenox 40mg Syringe) 40 mg Q24H SQ Last administered on 16:01; Start 08/29/16 at 16:00; Stop 08/31/16 at 10:23; Status DC Acetaminophen/ Hydrocodone Bitart (Lortab 5/325) 1 tab PRN Q4HRS PRN PO MODERATE PAIN; Start 08/29/16 at 16:45; Stop 08/31/16 at 15:54; Status DC Acetaminophen/ Hydrocodone Bitart (Lortab 5/325) 2 tab PRN Q4HRS PRN PO SEVERE PAIN Last administered on 08/31/16 15:14; Start 08/29/16 at 16:45; Stop at 15:54; Status DC Lidocaine/Sodium Bicarbonate (Buffered Lidocaine 1%) 20 ml STK-MED ONCE IJ ; Start 08/30/16 at 13:57; Stop 08/30/16 at 13:58; Status DC Midazolam HCl (Versed) 2 mg STK-MED ONCE .ROUTE ; Start 08/30/16 at 14:22; Stop 08/30/16 at 14:23; Status DC Fentanyl Citrate (Fentanyl 2ml Vial) 100 mcg STK-MED ONCE .ROUTE ; Start at 14:22; Stop 08/30/16 at 14:23; Status DC Lidocaine/Sodium Bicarbonate (Buffered Lidocaine 1%) 4 ml 1X ONCE IJ Last administered on 08/30/16 15:08; Start 08/30/16 at 14:50; Stop 08/30/16 at 15:04 ; Status DC Midazolam HCl (Versed) 1 mg 1X ONCE IV Last administered on 08/30/16 15:09; Start 08/30/16 at 14:45; Stop 08/30/16 at 15:04; Status DC Fentanyl Citrate (Fentanyl 2ml Vial) 50 mcg 1X ONCE IV Last administered on 15:09; Start 08/30/16 at 14:45; Stop 08/30/16 at 15:05; Status DC Metoprolol Tartrate 25 mg 25 mg BID PO Last administered on 08/30/16 21:44; Start 08/30/16 at 21:00; Stop 08/31/16 at 17:09; Status DC Alteplase, Recombinant 5 mg/ Sterile Water 50 ml @ 5 mls/hr 1X ONCE IV ; Start 08/31/16 at 10:30; Stop 08/31/16 at 15:27; Status DC Alteplase, Recombinant 5 mg/ Sterile Water 50 ml @ 5 mls/hr 1X ONCE IV ; Start 08/31/16 at 10:45; Stop 08/31/16 at 15:27; Status DC Alteplase, Recombinant 5 mg/ Sterile Water 50 ml @ 5 mls/hr 1X ONCE INT CAT Last administered on 08/31/16 12:40; Start 08/31/16 at 15:27; Stop 08/31/16 at 20:29; Status DC Alteplase, Recombinant/ Sterile Water (Cathflo) 50 ml @ 5 mls/hr 1X ONCE INT CAT Last administered on 08/31/16 12:40; Start 08/31/16 at 15:27; Stop at 20:44; Status DC Oxycodone HCl (Roxicodone) 5 mg PRN Q3HRS PRN PO MILD-MOD PAIN Last administered on 09/03/16 00:49; Start 08/31/16 at 16:00 Morphine Sulfate 2 mg PRN Q6HRS PRN IV PAIN; Start 08/31/16 at 16:00; Stop at 18:07; Status DC Oxycodone HCl (Roxicodone) 10 mg PRN Q3HRS PRN PO SEVERE PAIN Last administered on 09/03/16 18:00; Start 08/31/16 at 16:00 Fentanyl Citrate (Fentanyl 2ml Vial) 50 mcg PRN Q2HR PRN IV PAIN SEV Last administered on 09/06/16 08:35; Start 08/31/16 at 18:15 Morphine Sulfate 2 mg 2 mg ONCE ONCE IV Last administered on 08/31/16 18:05; Start 08/31/16 at 20:45; Stop 08/31/16 at 20:46; Status DC Sodium Chloride (Iv Sodium Chloride 0.9% 500ml Bag) 500 ml @ 500 mls/hr 1X ONCE IV Last administered on 09/01/16 06:30; Start 09/01/16 at 06:30; Stop at 07:29; Status DC Alteplase, Recombinant (Cathflo) 2 mg 1X ONCE INT CAT Last administered on 06:35; Start 09/01/16 at 07:00; Stop 09/01/16 at 07:01; Status DC Albuterol Sulfate 2.5 mg 2.5 mg RTQID NEB Last administered on 09/06/16 08:58 ; Start 09/01/16 at 12:00 Sodium Chloride 1,000 ml @ 1,000 mls/hr 1X ONCE IV Last administered on 12:09; Start 09/01/16 at 11:45; Stop 09/01/16 at 12:44; Status DC Alteplase, Recombinant 5 mg/ Sterile Water 50 ml @ 5 mls/hr 1X ONCE INT CAT Last administered on 09/01/16 12:30; Start 09/01/16 at 12:30; Stop 09/01/16 at 22:29; Status DC Alteplase, Recombinant/ Sterile Water (Cathflo) 50 ml @ 5 mls/hr 1X ONCE INT CAT Last administered on 09/01/16 12:30; Start 09/01/16 at 12:30; Stop at 22:29; Status DC Alteplase, Recombinant 2 mg 2 mg 1X ONCE INT CAT Last administered on 15:18; Start 09/01/16 at 13:00; Stop 09/01/16 at 13:01; Status DC Sodium Chloride (Iv Sodium Chloride 0.9% 1000ml Bag) 1,000 ml @ 1,000 mls/hr 1X ONCE IV Last administered on 09/01/16 23:45; Start 09/01/16 at 23:45; Stop 09/02/16 at 00:44; Status DC Fentanyl Citrate (Fentanyl 2ml Vial) 50 mcg 1X ONCE IV Last administered on t 15:30; Start 09/03/16 at 15:30; Stop 09/03/16 at 15:35; Status DC Bupivacaine HCl (Sensorcaine Mpf 0.5%) 30 ml STK-MED ONCE .ROUTE ; Start at 12:12; Stop 09/05/16 at 12:13; Status DC Lidocaine HCl 20 ml STK-MED ONCE .ROUTE ; Start 09/05/16 at 12:13; Stop at 12:14; Status DC Cellulose 1 each STK-MED ONCE .ROUTE ; Start 09/05/16 at 12:13; Stop 09/05/16 at 12:14; Status DC Lidocaine HCl 100 mg 100 mg STK-MED ONCE .ROUTE ; Start 09/05/16 at 13:16; Stop 09/05/16 at 13:17; Status DC Propofol (Diprivan) 100 ml @ As Directed STK-MED ONCE IV ; Start 09/05/16 at 13 :16; Stop 09/05/16 at 13:17; Status DC Fentanyl Citrate (Fentanyl 2ml Vial) 100 mcg STK-MED ONCE .ROUTE ; Start at 13:16; Stop 09/05/16 at 13:17; Status DC Rocuronium [place] (Zemuron) 50 mg STK-MED ONCE .ROUTE ; Start 09/05/16 at 13:16 ; Stop 09/05/16 at 13:17; Status DC Lidocaine HCl 1 ml 1 ml STK-MED ONCE .ROUTE ; Start 09/05/16 at 13:20; Stop at 13:21; Status DC Lactated Ringer's (Iv Lactated Ringers) 1,000 ml @ 100 mls/hr Q10H IV Last administered on 09/06/16 06:22; Start 09/05/16 at 14:15 Lidocaine HCl (Xylocaine-Mpf 1% Vial) 2 ml 1X ONCE INJ Last administered on 13:35; Start 09/05/16 at 14:30; Stop 09/05/16 at 14:31; Status DC Dexamethasone Sodium Phosphate (Decadron) 20 mg STK-MED ONCE .ROUTE ; Start at 14:49; Stop 09/05/16 at 14:50; Status DC Sevoflurane (Ultane) 90 ml STK-MED ONCE IH ; Start 09/05/16 at 14:49; Stop 09/05 at 14:50; Status DC Fentanyl Citrate (Fentanyl 2ml Vial) 100 mcg STK-MED ONCE .ROUTE ; Start at 15:07; Stop 09/05/16 at 15:08; Status DC Metoprolol Tartrate (Lopressor) 5 mg STK-MED ONCE .ROUTE ; Start 09/05/16 at 15: 09; Stop 09/05/16 at 15:10; Status DC Ondansetron HCl (Zofran) 4 mg STK-MED ONCE .ROUTE ; Start 09/05/16 at 15:23; Stop 09/05/16 at 15:24; Status DC Glycopyrrolate (Robinul) 1 mg STK-MED ONCE .ROUTE ; Start 09/05/16 at 15:23; Stop 09/05/16 at 15:24; Status DC Neostigmine Methylsulfate 5 mg STK-MED ONCE .ROUTE ; Start 09/05/16 at 15:23; Stop 09/05/16 at 15:24; Status DC Rocuronium [place] (Zemuron) 50 mg STK-MED ONCE .ROUTE ; Start 09/05/16 at 15:24 ; Stop 09/05/16 at 15:25; Status DC Ondansetron HCl (Zofran) 4 mg PRN Q6HRS PRN IV Nausea; Start 09/05/16 at 17:15 ; Stop 09/05/16 at 19:00; Status DC Fentanyl Citrate (Fentanyl 2ml Vial) 25 mcg PRN Q5MIN PRN IV MILD PAIN; Start 09/05/16 at 17:15; Stop 09/05/16 at 19:00; Status DC Fentanyl Citrate (Fentanyl 2ml Vial) 50 mcg PRN Q5MIN PRN IV MODERATE PAIN; Start 09/05/16 at 17:15; Stop 09/05/16 at 19:00; Status DC Morphine Sulfate 1 mg 1 mg PRN Q10MIN PRN IV SEVERE PAIN; Start 09/05/16 at 17: 15; Stop 09/05/16 at 19:00; Status DC Lactated Ringer's (Iv Lactated Ringers) 1,000 ml @ 0 mls/hr Q0M IV ; Start at 17:06; Stop 09/05/16 at 19:00; Status DC Lidocaine HCl 2 ml 1X PRN PRN ID IV START; Start 09/05/16 at 17:15; Stop at 19:00; Status DC Hydromorphone HCl (Dilaudid) 0.5 mg PRN Q10MIN PRN IV SEV PAIN,Second choice; Start 09/05/16 at 17:15; Stop 09/05/16 at 19:00; Status DC Prochlorperazine Edisylate (Compazine) 5 mg PACU PRN PRN IV NAUSEA; Start 09/05 at 17:15; Stop 09/05/16 at 19:00; Status DC Phenylephrine HCl ([place]ino-Synephrine Inj) 10 mg STK-MED ONCE .ROUTE ; Start at 17:37; Stop 09/05/16 at 17:38; Status DC Sodium Bicarbonate 50 meq 50 meq STK-MED ONCE .ROUTE ; Start 09/05/16 at 17:58; Stop 09/05/16 at 17:59; Status DC Lactated Ringer's (Iv Lactated Ringers) 500 ml @ 75 mls/hr 1X ONCE IV Last administered on 09/05/16t 22:02; Start 09/05/16 at 21:30; Stop 09/06/16 at 04:09 ; Status DC Active Scripts Active Reported [diphen/atropine] 2.5 Mg PO PRN QID PRN Prilosec Otc (Omeprazole Magnesium) 20 Mg Tablet. 1 Tab PO DAILY Lialda (Mesalamine) 1.2 Gm Tablet. 4 Tab PO DAILY06 Tizanidine Hcl 4 Mg Tablet 5 Tab PO QHS Olanzapine 2.5 Mg Tablet 2.5 Mg PO HS Zyrtec (Cetirizine Hcl) 10 Mg Capsule 10 Mg PO DAILY Dhea 50 Mg Tablet (Prasterone (Dhea)/Calcium Carb) 1 Each Tablet 1 Tab PO DAILY Niacin 500 Mg Tablet 500 Mg PO HS Vitamin D3 (Cholecalciferol (Vitamin D3)) 1,000 Unit Capsule 1,000 Unit PO DAILY Vitamin C (Ascorbic Acid) 1,000 Mg Tab.chew 1,000 Mg PO DAILY Imitrex (Sumatriptan Succinate) 100 Mg Tablet 100 Mg PO ONCE PRN Tramadol Hcl 50 Mg Tablet 4 Tab PO BID Jolie Lambert 25,000 Units Capsule (Lipase/Protease/Amylase) 1 Each Capsule. 1 Each PO TIDAFTMEAL Vitals/I & O Vital Sign - Last 24 Hours 09/05/16 09/05/16 09/05/16 09/05/16 13:22 17:07 17:10 17:23 Temp 98.6 98.4 98.6 98.4 Pulse 122 122 140 Resp 23 B/P 155/78 125/48 101/37 Pulse Ox 87 70 O2 Delivery Nasal Cannula Simple Mask Mask Simple Mask O2 Flow Rate 2.0 10 10 10 09/05/16 09/05/16 09/05/16 09/05/16 17:35 17:51 18:06 18:21 Temp 98.6 98.6 Pulse 106 88 114 104 Resp 24 30 20 33 B/P 106/75 122/61 132/76 126/74 Pulse Ox 70 91 92 96 O2 Delivery High Flow Nasal Cannula BiPAP/CPAP BiPAP/CPAP BiPAP/CPAP O2 Flow Rate 10 09/05/16 09/05/16 09/05/16 09/05/16 18:30 18:36 18:40 19:15 Temp 98.0 98.0 Pulse 106 106 Resp 19 16 B/P 130/66 130/66 Pulse Ox 97 99 O2 Delivery BiPAP/CPAP Bi-pap BiPAP/CPAP 09/05/16 09/05/16 09/05/16 09/05/16 19:30 20:00 20:00 20:00 Temp 97.4 97.4 Pulse 112 126 Resp 24 25 B/P 109/58 94/57 Pulse Ox 100 100 O2 Delivery BiPAP/CPAP Bi-pap BiPAP/CPAP 09/05/16 09/05/16 09/05/16 09/05/16 20:06 20:33 21:00 22:00 Pulse 130 119 Resp 28 29 14 B/P 92/63 122/62 Pulse Ox 100 99 100 100 O2 Delivery BiPAP/CPAP BiPAP/CPAP BiPAP/CPAP BiPAP/CPAP 09/05/16 09/05/16 09/05/1609/06/17 22:02 22:36 23:00 00:00 Temp 97.4 98.8 97.4 98.8 Pulse 122 126 119 Resp 24 15 20 16 B/P 119/66 153/70 148/63 Pulse Ox 100 100 100 O2 Delivery BiPAP/CPAP Nasal Cannula Nasal Cannula O2 Flow Rate 3.0 3.0 09/06/16 09/06/16 09/06/16 09/06/16 00:00 00:00 00:05 01:00 Pulse 125 Resp 24 B/P 140/89 Pulse Ox 100 98 O2 Delivery Nasal Cannula Nasal Cannula BiPAP/CPAP O2 Flow Rate 3.0 3.0 09/06/16 09/06/16 09/06/16 09/06/16 01:00 02:00 02:16 03:00 Pulse 116 110 Resp 15 19 B/P 155/74 151/84 Pulse Ox 100 99 98 100 O2 Delivery BiPAP/CPAP BiPAP/CPAP BiPAP/CPAP Nasal Cannula O2 Flow Rate 3.0 09/06/16 09/06/16 09/06/16 09/06/16 03:35 04:00 04:00 04:00 Temp 98.7 98.7 Pulse 115 115 Resp 16 18 B/P 157/81 168/73 Pulse Ox 100 O2 Delivery Nasal Cannula Nasal Cannula O2 Flow Rate 3.0 3.0 09/06/16 09/06/16 09/06/16 09/06/16 05:00 06:00 06:21 06:57 Pulse 116 125 Resp 18 22 18 20 B/P 171/71 141/72 Pulse Ox 100 100 100 100 O2 Delivery Nasal Cannula Nasal Cannula Nasal Cannula Nasal Cannula O2 Flow Rate 3.0 3.0 3.0 3.0 09/06/16 09/06/16 09/06/16 09/06/16 08:00 08:00 08:35 08:59 Pulse 119 B/P 122/62 Pulse Ox 100 96 O2 Delivery Nasal Cannula Nasal Cannula Nasal Cannula O2 Flow Rate 3.0 3.0 Intake and Output 09/05/16 09/05/16 09/06/16 15:00 23:00 07:00 Intake Total 3300 ml 2369 ml Output Total 1878 ml 780 ml Balance 1422 ml 1589 ml CASTLE,NIAL K III DO Sep 06, 2016 11:44
--- NOTE | 2016-09-06 12:02 | PDOC ---
PULMONARY PROGRESS NOTES Subjective feels better since last nigh s/p right de-cortication with extensive pleural peel removed air leak on one chest tube Vitals Vital Signs Date Time Temp Pulse Resp B/P Pulse Ox O2 Delivery O2 Flow Rate FiO2 09/06/16 11:50 16 96 Nasal Cannula 3.0 09/06/16 08:00 119 122/62 09/06/16 04:00 98.7 98.7 Comments ros as above, other sys otherwise neg General: Alert, No acute distress HEENT: Other (nc at perrl, throat nose clear) Lungs: Other (decrease bs) Cardiovascular: S1, S2 Abdomen: Soft, Non-tender, Other (no mass) Neuro Exam: Alert, Oriented, No Focal Findings Extremities: No Edema Skin: Warm Labs Laboratory Tests Test 09/05/16 05:45 09/05/16 15:22 09/05/16 17:50 09/05/16 18:15 White Blood Count 14.2x10^3/uL (4.0-11.0) Red Blood Count 2.67x10^6/uL (3.50-5.40) Hemoglobin 7.4g/dL (12.0-15.5) Hematocrit 22.7% (36.0-47.0) Mean Corpuscular Volume 85fL (79-100) Mean Corpuscular Hemoglobin 28pg (25-35) Mean Corpuscular Hemoglobin Concent 33g/dL (31-37) Red Cell Distribution Width 15.0% (11.5-14.5) Platelet Count 466x10^3/uL (140-400) Neutrophils (%) (Auto) 86% (31-73) Lymphocytes (%) (Auto) 7% (24-48) Monocytes (%) (Auto) 5% (0-9) Eosinophils (%) (Auto) 2% (0-3) Basophils (%) (Auto) 1% (0-3) Neutrophils # (Auto) 12.2x10^3uL (1.8-7.7) Lymphocytes # (Auto) 0.9x10^3/uL (1.0-4.8) Monocytes # (Auto) 0.6x10^3/uL (0.0-1.1) Eosinophils # (Auto) 0.3x10^3/uL (0.0-0.7) Basophils # (Auto) 0.1x10^3/uL (0.0-0.2) Sodium Level 137mmol/L (136-145) Potassium Level 4.3mmol/L (3.5-5.1) Chloride Level 101mmol/L (98-107) Carbon Dioxide Level 30mmol/L (21-32) Anion Gap 6 (6-14) Blood Urea Nitrogen 7mg/dL (7-20) Creatinine 0.7mg/dL (0.6-1.0) Estimated GFR (Cockcroft-Gault) 86.9 Glucose Level 72mg/dL (70-99) Calcium Level 8.1mg/dL (8.5-10.1) Body Fluid pH 6.9 O2 Saturation 96% (92-99) 98% (92-99) Arterial Blood pH 7.10 (7.35-7.45) 7.31 (7.35-7.45) Arterial Blood pCO2 at Patient Temp 47mmHg (35-46) 38mmHg (35-46) Arterial Blood pO2 at Patient Temp 110mmHg (75-108) 131mmHg (75-108) Arterial Blood HCO3 14mmol/L (21-28) 19mmol/L (21-28) Arterial Blood Base Excess -15mmol/L (-3-3) -7mmol/L (-3-3) FiO2 100 100 Test 09/05/16 20:00 09/05/16 20:41 09/06/16 06:00 White Blood Count 36.5x10^3/uL (4.0-11.0) 18.5x10^3/uL (4.0-11.0) Red Blood Count 2.72x10^6/uL (3.50-5.40) 3.60x10^6/uL (3.50-5.40) Hemoglobin 7.7g/dL (12.0-15.5) 10.5g/dL (12.0-15.5) Hematocrit 23.4% (36.0-47.0) 30.9% (36.0-47.0) Mean Corpuscular Volume 86fL (79-100) 86fL (79-100) Mean Corpuscular Hemoglobin 28pg (25-35) 29pg (25-35) Mean Corpuscular Hemoglobin Concent 33g/dL (31-37) 34g/dL (31-37) Red Cell Distribution Width 14.2% (11.5-14.5) 14.5% (11.5-14.5) Platelet Count 359x10^3/uL (140-400) 284x10^3/uL (140-400) Neutrophils (%) (Auto) 97% (31-73) 90% (31-73) Lymphocytes (%) (Auto) 2% (24-48) 6% (24-48) Monocytes (%) (Auto) 1% (0-9) 5% (0-9) Eosinophils (%) (Auto) 0% (0-3) 0% (0-3) Basophils (%) (Auto) 0% (0-3) 0% (0-3) Neutrophils # (Auto) 35.3x10^3uL (1.8-7.7) 16.6x10^3uL (1.8-7.7) Lymphocytes # (Auto) 0.6x10^3/uL (1.0-4.8) 1.0x10^3/uL (1.0-4.8) Monocytes # (Auto) 0.5x10^3/uL (0.0-1.1) 0.8x10^3/uL (0.0-1.1) Eosinophils # (Auto) 0.0x10^3/uL (0.0-0.7) 0.0x10^3/uL (0.0-0.7) Basophils # (Auto) 0.2x10^3/uL (0.0-0.2) 0.1x10^3/uL (0.0-0.2) Segmented Neutrophils % 86% (35-66) Band Neutrophils % 12% (0-9) Lymphocytes % 2% (24-48) Toxic Granulation Slight Platelet Estimate Adequate (ADEQUATE) Polychromasia Slight Hypochromasia Mod Poikilocytosis Slight Anisocytosis Slight Crenated Cell Present Prothrombin Time 16.7SEC (11.7-14.0) 15.0SEC (11.7-14.0) Prothromb Time International Ratio 1.4 (0.8-1.1) 1.3 (0.8-1.1) Sodium Level 138mmol/L (136-145) 140mmol/L (136-145) Potassium Level 4.8mmol/L (3.5-5.1) 4.5mmol/L (3.5-5.1) Chloride Level 105mmol/L (98-107) 105mmol/L (98-107) Carbon Dioxide Level 21mmol/L (21-32) 26mmol/L (21-32) Anion Gap 12 (6-14) 9 (6-14) Blood Urea Nitrogen 11mg/dL (7-20) 12mg/dL (7-20) Creatinine 0.7mg/dL (0.6-1.0) 0.7mg/dL (0.6-1.0) Estimated GFR (Cockcroft-Gault) 86.9 86.9 Glucose Level 171mg/dL (70-99) 100mg/dL (70-99) Calcium Level 7.4mg/dL (8.5-10.1) 7.7mg/dL (8.5-10.1) O2 Saturation 98% (92-99) Arterial Blood pH 7.46 (7.35-7.45) Arterial Blood pCO2 at Patient Temp 32mmHg (35-46) Arterial Blood pO2 at Patient Temp 135mmHg (75-108) Arterial Blood HCO3 22mmol/L (21-28) Arterial Blood Base Excess -1mmol/L (-3-3) FiO2 50 BUN/Creatinine Ratio 17 (6-20) Total Bilirubin 0.7mg/dL (0.2-1.0) Aspartate Amino Transf (AST/SGOT) 110U/L (15-37) Alanine Aminotransferase (ALT/SGPT) 63U/L (14-59) Alkaline Phosphatase 79U/L (46-116) Total Protein 5.6g/dL (6.4-8.2) Albumin 1.2g/dL (3.4-5.0) Albumin/Globulin Ratio 0.3 (1.0-1.7) Laboratory Tests Test 09/05/16 15:22 09/05/16 17:50 09/05/16 18:15 09/05/16 20:00 Body Fluid pH 6.9 O2 Saturation 96% (92-99) 98% (92-99) Arterial Blood pH 7.10 (7.35-7.45) 7.31 (7.35-7.45) Arterial Blood pCO2 at Patient Temp 47mmHg (35-46) 38mmHg (35-46) Arterial Blood pO2 at Patient Temp 110mmHg (75-108) 131mmHg (75-108) Arterial Blood HCO3 14mmol/L (21-28) 19mmol/L (21-28) Arterial Blood Base Excess -15mmol/L (-3-3) -7mmol/L (-3-3) FiO2 100 100 White Blood Count 36.5x10^3/uL (4.0-11.0) Red Blood Count 2.72x10^6/uL (3.50-5.40) Hemoglobin 7.7g/dL (12.0-15.5) Hematocrit 23.4% (36.0-47.0) Mean Corpuscular Volume 86fL (79-100) Mean Corpuscular Hemoglobin 28pg (25-35) Mean Corpuscular Hemoglobin Concent 33g/dL (31-37) Red Cell Distribution Width 14.2% (11.5-14.5) Platelet Count 359x10^3/uL (140-400) Neutrophils (%) (Auto) 97% (31-73) Lymphocytes (%) (Auto) 2% (24-48) Monocytes (%) (Auto) 1% (0-9) Eosinophils (%) (Auto) 0% (0-3) Basophils (%) (Auto) 0% (0-3) Neutrophils # (Auto) 35.3x10^3uL (1.8-7.7) Lymphocytes # (Auto) 0.6x10^3/uL (1.0-4.8) Monocytes # (Auto) 0.5x10^3/uL (0.0-1.1) Eosinophils # (Auto) 0.0x10^3/uL (0.0-0.7) Basophils # (Auto) 0.2x10^3/uL (0.0-0.2) Segmented Neutrophils % 86% (35-66) Band Neutrophils % 12% (0-9) Lymphocytes % 2% (24-48) Toxic Granulation Slight Platelet Estimate Adequate (ADEQUATE) Polychromasia Slight Hypochromasia Mod Poikilocytosis Slight Anisocytosis Slight Crenated Cell Present Prothrombin Time 16.7SEC (11.7-14.0) Prothromb Time International Ratio 1.4 (0.8-1.1) Sodium Level 138mmol/L (136-145) Potassium Level 4.8mmol/L (3.5-5.1) Chloride Level 105mmol/L (98-107) Carbon Dioxide Level 21mmol/L (21-32) Anion Gap 12 (6-14) Blood Urea Nitrogen 11mg/dL (7-20) Creatinine 0.7mg/dL (0.6-1.0) Estimated GFR (Cockcroft-Gault) 86.9 Glucose Level 171mg/dL (70-99) Calcium Level 7.4mg/dL (8.5-10.1) Test 09/05/16 20:41 09/06/16 06:00 O2 Saturation 98% (92-99) Arterial Blood pH 7.46 (7.35-7.45) Arterial Blood pCO2 at Patient Temp 32mmHg (35-46) Arterial Blood pO2 at Patient Temp 135mmHg (75-108) Arterial Blood HCO3 22mmol/L (21-28) Arterial Blood Base Excess -1mmol/L (-3-3) FiO2 50 White Blood Count 18.5x10^3/uL (4.0-11.0) Red Blood Count 3.60x10^6/uL (3.50-5.40) Hemoglobin 10.5g/dL (12.0-15.5) Hematocrit 30.9% (36.0-47.0) Mean Corpuscular Volume 86fL (79-100) Mean Corpuscular Hemoglobin 29pg (25-35) Mean Corpuscular Hemoglobin Concent 34g/dL (31-37) Red Cell Distribution Width 14.5% (11.5-14.5) Platelet Count 284x10^3/uL (140-400) Neutrophils (%) (Auto) 90% (31-73) Lymphocytes (%) (Auto) 6% (24-48) Monocytes (%) (Auto) 5% (0-9) Eosinophils (%) (Auto) 0% (0-3) Basophils (%) (Auto) 0% (0-3) Neutrophils # (Auto) 16.6x10^3uL (1.8-7.7) Lymphocytes # (Auto) 1.0x10^3/uL (1.0-4.8) Monocytes # (Auto) 0.8x10^3/uL (0.0-1.1) Eosinophils # (Auto) 0.0x10^3/uL (0.0-0.7) Basophils # (Auto) 0.1x10^3/uL (0.0-0.2) Prothrombin Time 15.0SEC (11.7-14.0) Prothromb Time International Ratio 1.3 (0.8-1.1) Sodium Level 140mmol/L (136-145) Potassium Level 4.5mmol/L (3.5-5.1) Chloride Level 105mmol/L (98-107) Carbon Dioxide Level 26mmol/L (21-32) Anion Gap 9 (6-14) Blood Urea Nitrogen 12mg/dL (7-20) Creatinine 0.7mg/dL (0.6-1.0) Estimated GFR (Cockcroft-Gault) 86.9 BUN/Creatinine Ratio 17 (6-20) Glucose Level 100mg/dL (70-99) Calcium Level 7.7mg/dL (8.5-10.1) Total Bilirubin 0.7mg/dL (0.2-1.0) Aspartate Amino Transf (AST/SGOT) 110U/L (15-37) Alanine Aminotransferase (ALT/SGPT) 63U/L (14-59) Alkaline Phosphatase 79U/L (46-116) Total Protein 5.6g/dL (6.4-8.2) Albumin 1.2g/dL (3.4-5.0) Albumin/Globulin Ratio 0.3 (1.0-1.7) Medications Active Scripts Medications Dose Route/Sig Days Date Category Zyprexa (Olanzapine) 2.5 Mg Tablet 1 Tab PO QHS 01/15/16 Reported Tizanidine Hcl 4 Mg Tablet 4 Mg PO TID PRN 01/14/16 Reported Tramadol Hcl 50 Mg Tablet 50 Mg PO BID PRN 01/14/16 Reported Lialda (Mesalamine) 1.2 Gm Tablet.dr 4 Tab PO DAILY 6/2/16 Reported Comments cxr reviewed, 09/06 Impression . 1. Acute hypoxic respiratory failure, This is secondary to extensive multilobar community-acquired pneumonia/ multiloculated effusion, empyema. 2. Stage III empyema (fibrothorax). s/p de-cortication.Dense adhesions of the lung to the chest wall, extremely difficult to create a space. Owing to the patient's sepsis she was very coagulopathic and there was more bleeding than usual. Very friable lung, possible small parenchymal lung tear. 2. chronic obstructive pulmonary disease 3. severe leukocytosis POA. This is probably related to underlying extensive pneumonia and sepsis./ BM aspiration 08/29 , No leukemia 4. Severe protein-calorie malnutrition with an albumin level of 1.4. 5. Lactic acidosis present on admission on 08/21/2016 at [facility] related to sepsis from pneumonia. 6. Normal ejection fraction by echo with a pulmonary artery systolic pressure of 49. Suspect this is secondary to underlying chronic obstructive pulmonary disease. 7. smoker Plan . 1. Monitor daily cxr/ air leak. 2. follow pleural cultures/ cytology 3. cont chest tube to suction to -30. 4. Bronchodilators. 5. Deep venous thrombosis prophylaxis with scd 6. Stress ulcer prophylaxis. 7. Continue BiPAP prn 8. 02 titration 9. Monitor white cell count./ HH 11. pain control HERBER PERALES MD Sep 06, 2016 12:02
[2016-09-06] MEDS: SUMATRIPTAN SUCCINATE 100 MG TABLET. PO PRN (15:47)
--- NOTE | 2016-09-06 16:00 | PDOC ---
Progress Note Subjective Subjective Doing well this morning. Required some resuscitation postoperatively as the patient was significantly behind and under-resuscitated preoperatively. She is normotensive this morning. In the globe and is over 10. Minimal drain output. Chest x-ray as expected following a pulmonary decortication. She is on 3 L nasal cannula. Small air leak in one of the chest tubes. ROS ROS No nausea No vomiting No pain No rash Vital Sign Vital Signs Vital Signs Date Time Temp Pulse Resp B/P Pulse Ox O2 Delivery O2 Flow Rate FiO2 09/06/16 14:41 3 Nasal Cannula 09/06/16 14:11 3.0 09/06/16 12:00 98.3 120 22 153/72 98.3 Physical Exam PHYSICAL EXAM GENERAL: NAD, Alert HEENT: PERRL, OC/OP NECK: Supple, no JVD, no LN LUNGS: Clear HEART: S1S2, no gallop, no murmur ABD: Soft, NT, no organomegaly, no rebound EXT: No edema, no cyanosis GREY IRON MOLDER: Alert, oriented x 3, no focal neurologic deficit SKIN: No rash IV: ok Labs Lab Laboratory Tests Test 09/05/16 17:50 09/05/16 18:15 09/05/16 20:00 09/05/16 20:41 O2 Saturation 96% (92-99) 98% (92-99) 98% (92-99) Arterial Blood pH 7.10 (7.35-7.45) 7.31 (7.35-7.45) 7.46 (7.35-7.45) Arterial Blood pCO2 at Patient Temp 47mmHg (35-46) 38mmHg (35-46) 32mmHg (35-46) Arterial Blood pO2 at Patient Temp 110mmHg (75-108) 131mmHg (75-108) 135mmHg (75-108) Arterial Blood HCO3 14mmol/L (21-28) 19mmol/L (21-28) 22mmol/L (21-28) Arterial Blood Base Excess -15mmol/L (-3-3) -7mmol/L (-3-3) -1mmol/L (-3-3) FiO2 100 100 50 White Blood Count 36.5x10^3/uL (4.0-11.0) Red Blood Count 2.72x10^6/uL (3.50-5.40) Hemoglobin 7.7g/dL (12.0-15.5) Hematocrit 23.4% (36.0-47.0) Mean Corpuscular Volume 86fL (79-100) Mean Corpuscular Hemoglobin 28pg (25-35) Mean Corpuscular Hemoglobin Concent 33g/dL (31-37) Red Cell Distribution Width 14.2% (11.5-14.5) Platelet Count 359x10^3/uL (140-400) Neutrophils (%) (Auto) 97% (31-73) Lymphocytes (%) (Auto) 2% (24-48) Monocytes (%) (Auto) 1% (0-9) Eosinophils (%) (Auto) 0% (0-3) Basophils (%) (Auto) 0% (0-3) Neutrophils # (Auto) 35.3x10^3uL (1.8-7.7) Lymphocytes # (Auto) 0.6x10^3/uL (1.0-4.8) Monocytes # (Auto) 0.5x10^3/uL (0.0-1.1) Eosinophils # (Auto) 0.0x10^3/uL (0.0-0.7) Basophils # (Auto) 0.2x10^3/uL (0.0-0.2) Segmented Neutrophils % 86% (35-66) Band Neutrophils % 12% (0-9) Lymphocytes % 2% (24-48) Toxic Granulation Slight Platelet Estimate Adequate (ADEQUATE) Polychromasia Slight Hypochromasia Mod Poikilocytosis Slight Anisocytosis Slight Crenated Cell Present Prothrombin Time 16.7SEC (11.7-14.0) Prothromb Time International Ratio 1.4 (0.8-1.1) Sodium Level 138mmol/L (136-145) Potassium Level 4.8mmol/L (3.5-5.1) Chloride Level 105mmol/L (98-107) Carbon Dioxide Level 21mmol/L (21-32) Anion Gap 12 (6-14) Blood Urea Nitrogen 11mg/dL (7-20) Creatinine 0.7mg/dL (0.6-1.0) Estimated GFR (Cockcroft-Gault) 86.9 Glucose Level 171mg/dL (70-99) Calcium Level 7.4mg/dL (8.5-10.1) Test 09/06/16 06:00 White Blood Count 18.5x10^3/uL (4.0-11.0) Red Blood Count 3.60x10^6/uL (3.50-5.40) Hemoglobin 10.5g/dL (12.0-15.5) Hematocrit 30.9% (36.0-47.0) Mean Corpuscular Volume 86fL (79-100) Mean Corpuscular Hemoglobin 29pg (25-35) Mean Corpuscular Hemoglobin Concent 34g/dL (31-37) Red Cell Distribution Width 14.5% (11.5-14.5) Platelet Count 284x10^3/uL (140-400) Neutrophils (%) (Auto) 90% (31-73) Lymphocytes (%) (Auto) 6% (24-48) Monocytes (%) (Auto) 5% (0-9) Eosinophils (%) (Auto) 0% (0-3) Basophils (%) (Auto) 0% (0-3) Neutrophils # (Auto) 16.6x10^3uL (1.8-7.7) Lymphocytes # (Auto) 1.0x10^3/uL (1.0-4.8) Monocytes # (Auto) 0.8x10^3/uL (0.0-1.1) Eosinophils # (Auto) 0.0x10^3/uL (0.0-0.7) Basophils # (Auto) 0.1x10^3/uL (0.0-0.2) Prothrombin Time 15.0SEC (11.7-14.0) Prothromb Time International Ratio 1.3 (0.8-1.1) Sodium Level 140mmol/L (136-145) Potassium Level 4.5mmol/L (3.5-5.1) Chloride Level 105mmol/L (98-107) Carbon Dioxide Level 26mmol/L (21-32) Anion Gap 9 (6-14) Blood Urea Nitrogen 12mg/dL (7-20) Creatinine 0.7mg/dL (0.6-1.0) Estimated GFR (Cockcroft-Gault) 86.9 BUN/Creatinine Ratio 17 (6-20) Glucose Level 100mg/dL (70-99) Calcium Level 7.7mg/dL (8.5-10.1) Total Bilirubin 0.7mg/dL (0.2-1.0) Aspartate Amino Transf (AST/SGOT) 110U/L (15-37) Alanine Aminotransferase (ALT/SGPT) 63U/L (14-59) Alkaline Phosphatase 79U/L (46-116) Total Protein 5.6g/dL (6.4-8.2) Albumin 1.2g/dL (3.4-5.0) Albumin/Globulin Ratio 0.3 (1.0-1.7) Objective Assessment POD#1 s/p R VATS, drainage of empyema and pulmonary decortication. Doing well. On 3 L nasal cannula. Minimal drain output with small air leak from one chest tube. Chest x-ray as expected following an extensive ovary decortication. Normotensive with sinus tachycardia.. Plan Plan of Care Continue chest tube to -20 cm H2O suction Continue Zyvox and Zosyn and follow cultures D/c doyle Ambulation and aggressive pulmonary toilet Keep in the unit for 1 more day. Monitor H&H YOVANI WHALEY MD Sep 06, 2016 16:00
[2016-09-06] MEDS: OXYCODONE IR 5 MG TABLET. PO PRN ×2 (16:45→20:02)
[2016-09-06] MEDS: OLANZAPINE 2.5 MG TABLET PO SCH (21:04)
[2016-09-06] MEDS: NIACIN ER 500 MG TABLET.ER PO SCH (21:04)
[2016-09-06] MEDS: tiZANidine 4 MG TABLET. PO SCH (21:04)
[2016-09-07] VITALS (12 sets, daily range): BP systolic 86–147; BP diastolic 51–86
[2016-09-07] MEDS ORDERED: IV NORMAL SALINE 500ML BAG 500 ML IV ONE
[2016-09-07] MEDS: OXYCODONE IR 5 MG TABLET. PO PRN ×4 (00:16→19:47)
[2016-09-07] MEDS: FENTANYL PF 100 MCG/2 ML VIAL. IV PRN ×8 (03:27→21:40)
[2016-09-07] MEDS: PIPERACILLIN/TAZOBACTAM 3.375 GM in IV NORMAL SALINE 50ML 50 ML IV SCH ×4 (05:47→23:23)
[2016-09-07] MEDS: MESALAMINE 1.2 GM TABLET.DR PO SCH (05:47)
[2016-09-07 06:13] LABS: BASO # 0.1 x10^3/uL (0.0-0.2); BASO % 1 % (0-3); EOS % 1 % (0-3); HEMATOCRIT 21.3 % (36.0-47.0); HEMOGLOBIN 7.3 g/dL (12.0-15.5); LYMPH # 0.9 x10^3/uL (1.0-4.8); LYMPH % 10 % (24-48); MEAN CORPUSCULAR HEMOGLOBIN 30 pg (25-35); MEAN CORPUSCULAR HGB CONC 34 g/dL (31-37); MEAN CORPUSCULAR VOLUME 88 fL (79-100); MONO % 7 % (0-9); NEUT % 81 % (31-73); PLATELET COUNT 194 x10^3/uL (140-400); RED BLOOD COUNT 2.43 x10^6/uL (3.50-5.40); RED CELL DISTRIBUTION WIDTH 14.7 % (11.5-14.5); WHITE BLOOD COUNT 9.7 x10^3/uL (4.0-11.0)
[2016-09-07 06:31] LABS: CALCIUM 7.8 mg/dL (8.5-10.1); CREATININE 0.8 mg/dL (0.6-1.0); GFR 74.5; POTASSIUM 3.7 mmol/L (3.5-5.1)
[2016-09-07] MEDS: SUMATRIPTAN SUCCINATE 100 MG TABLET. PO PRN ×2 (06:50→22:03)
--- NOTE | 2016-09-07 07:33 | RAD ---
Portable chest, 09/07/2016: History: Postop evaluation, empyema Comparison is made to yesterday's study. The 2 right chest tubes and the right PICC are unchanged in positions. There are moderate patchy infiltrates in the right lung which are unchanged. Pleural thickening is again noted on the right. There is a small residual right pneumothorax best seen superolaterally. The left chest remains clear. IMPRESSION: 1. Persistent moderate patchy infiltrate in the right lung. 2. Small residual right pneumothorax. 3. No significant change since yesterday's study.
--- NOTE | 2016-09-07 08:05 | PDOC ---
Infectious Disease Note Subjective Subjective Doing well this morning. ROS ROS GEN: Denies fevers, chills, sweats HEENT: Denies blurred vision, sore throat CV: Denies chest pain RESP: Denies shortness of air, cough. Chest tube/incision pain managed GI: Denies n/v/d NEURO: Denies confusion, dizziness MSK: Denies weakness, joint pain/swelling Vital Sign Vital Signs Vital Signs Date Time Temp Pulse Resp B/P Pulse Ox O2 Delivery O2 Flow Rate FiO2 09/07/16 07:00 99 18 113/67 99 Nasal Cannula 1.0 09/07/16 04:00 98.0 98.0 Physical Exam PHYSICAL EXAM GENERAL: Resting but awakened easily, NAD, Alert HEENT: PERRL, OC/OP -clear NECK: Supple, no JVD, no LN LUNGS: Clear. Chest tubes times 2 HEART: S1S2, no gallop, no murmur ABD: Soft, NT, no organomegaly, no rebound EXT: No edema, no cyanosis EMERGENCY ROOM PHYSICIAN ASSISTANT: Alert, oriented x 3, no focal neurologic deficit SKIN: No rash IV: RUE PICC - clean Labs Lab Laboratory Tests Test 09/07/16 05:52 White Blood Count 9.7x10^3/uL (4.0-11.0) Red Blood Count 2.43x10^6/uL (3.50-5.40) Hemoglobin 7.3g/dL (12.0-15.5) Hematocrit 21.3% (36.0-47.0) Mean Corpuscular Volume 88fL (79-100) Mean Corpuscular Hemoglobin 30pg (25-35) Mean Corpuscular Hemoglobin Concent 34g/dL (31-37) Red Cell Distribution Width 14.7% (11.5-14.5) Platelet Count 194x10^3/uL (140-400) Neutrophils (%) (Auto) 81% (31-73) Lymphocytes (%) (Auto) 10% (24-48) Monocytes (%) (Auto) 7% (0-9) Eosinophils (%) (Auto) 1% (0-3) Basophils (%) (Auto) 1% (0-3) Neutrophils # (Auto) 7.9x10^3uL (1.8-7.7) Lymphocytes # (Auto) 0.9x10^3/uL (1.0-4.8) Monocytes # (Auto) 0.7x10^3/uL (0.0-1.1) Eosinophils # (Auto) 0.1x10^3/uL (0.0-0.7) Basophils # (Auto) 0.1x10^3/uL (0.0-0.2) Sodium Level 139mmol/L (136-145) Potassium Level 3.7mmol/L (3.5-5.1) Chloride Level 105mmol/L (98-107) Carbon Dioxide Level 28mmol/L (21-32) Anion Gap 6 (6-14) Blood Urea Nitrogen 9mg/dL (7-20) Creatinine 0.8mg/dL (0.6-1.0) Estimated GFR (Cockcroft-Gault) 74.5 Glucose Level 93mg/dL (70-99) Calcium Level 7.8mg/dL (8.5-10.1) Objective Assessment S/p VATS/decortication 09/05 pH 6.9 Leukocytosis, better Diarrhea - chronic problem at home - better. C-diff neg S/p Bone marrow 08/29. Neg path - reactive marrow CAP Right empyema. s/p chest tube placement, 08/25 and 08/30 - pH 7.1. Cults neg Fever. better Sepsis with lactic acidosis Suspected COPD Hypoxia - better H/o C-diff Plan Plan of Care Continue Zyvox and Zosyn and follow cultures but wean soon NGHIA SONI MD Sep 07, 2016 08:05
[2016-09-07] MEDS: ASCORBIC ACID 500 MG TABLET PO SCH (08:09)
[2016-09-07] MEDS: LIPASE/PROTEAS/AMYLASE 5/17/27 CAPSULE.DR. PO SCH ×3 (08:09→17:49)
[2016-09-07] MEDS: CETIRIZINE HCL 10 MG TABLET PO SCH (08:09)
[2016-09-07] MEDS: LACTOBACILLUS ACIDOPH & BULGAR 1 TABLET. PO SCH ×3 (08:09→17:48)
[2016-09-07] MEDS: CHOLECALCIFEROL (VITAMIN D3) 1,000 UNIT TABLET PO SCH (08:09)
[2016-09-07] MEDS: PANTOPRAZOLE 40 MG TABLET. PO SCH (08:10)
[2016-09-07] MEDS: ALBUTEROL SULFATE 2.5 MG/3 ML NEBU. NEB SCH ×4 (09:18→20:01)
--- NOTE | 2016-09-07 09:46 | PDOC ---
Progress Note Subjective Subjective Doing well this morning. On room air. Air leak present but smaller. Tachycardia has resolved. Normotensive. Hemoglobin 7.3 from 10 which I think is an erroneous measurement. ROS ROS No nausea No vomiting No pain No rash Vital Sign Vital Signs Vital Signs Date Time Temp Pulse Resp B/P Pulse Ox O2 Delivery O2 Flow Rate FiO2 09/07/16 08:45 100 Nasal Cannula 3.0 09/07/16 08:11 87 16 139/86 09/07/16 04:00 98.0 98.0 Physical Exam PHYSICAL EXAM GENERAL: NAD, Alert HEENT: PERRL, OC/OP NECK: Supple, no JVD, no LN LUNGS: Clear HEART: S1S2, no gallop, no murmur ABD: Soft, NT, no organomegaly, no rebound EXT: No edema, no cyanosis WOOD FENCE INSTALLER: Alert, oriented x 3, no focal neurologic deficit SKIN: No rash IV: ok Labs Lab Laboratory Tests Test 09/07/16 05:52 White Blood Count 9.7x10^3/uL (4.0-11.0) Red Blood Count 2.43x10^6/uL (3.50-5.40) Hemoglobin 7.3g/dL (12.0-15.5) Hematocrit 21.3% (36.0-47.0) Mean Corpuscular Volume 88fL (79-100) Mean Corpuscular Hemoglobin 30pg (25-35) Mean Corpuscular Hemoglobin Concent 34g/dL (31-37) Red Cell Distribution Width 14.7% (11.5-14.5) Platelet Count 194x10^3/uL (140-400) Neutrophils (%) (Auto) 81% (31-73) Lymphocytes (%) (Auto) 10% (24-48) Monocytes (%) (Auto) 7% (0-9) Eosinophils (%) (Auto) 1% (0-3) Basophils (%) (Auto) 1% (0-3) Neutrophils # (Auto) 7.9x10^3uL (1.8-7.7) Lymphocytes # (Auto) 0.9x10^3/uL (1.0-4.8) Monocytes # (Auto) 0.7x10^3/uL (0.0-1.1) Eosinophils # (Auto) 0.1x10^3/uL (0.0-0.7) Basophils # (Auto) 0.1x10^3/uL (0.0-0.2) Sodium Level 139mmol/L (136-145) Potassium Level 3.7mmol/L (3.5-5.1) Chloride Level 105mmol/L (98-107) Carbon Dioxide Level 28mmol/L (21-32) Anion Gap 6 (6-14) Blood Urea Nitrogen 9mg/dL (7-20) Creatinine 0.8mg/dL (0.6-1.0) Estimated GFR (Cockcroft-Gault) 74.5 Glucose Level 93mg/dL (70-99) Calcium Level 7.8mg/dL (8.5-10.1) Objective Assessment POD#2 s/p R VATS, drainage of empyema and pulmonary decortication. Doing very well. On room air. Minimal drain output with small air leak. Normotensive and in sinus rhythm. Hemoglobin 7.3 from 10 which I think is an erroneous measurement. Plan Plan of Care Continue Zyvox and Zosyn and follow cultures but wean soon Repeat H&H. If Hb<8, transfuse one unit PRBC Keep chest tube to suction (-20 cm H2O) OK to transfer to floor (second floor telemetry). YOVANI WHALEY MD Sep 07, 2016 09:46
--- NOTE | 2016-09-07 09:54 | PDOC ---
PROGRESS NOTES Chief Complaint Chief Complaint Acute hypoxic respiratory failure 1. PNA: multilobar. w/ empyema 2. Empyema: s/p VATS, w/ chest tubes draining 3. COPD exacerbation: improving 4. Sepsis: better 5. HTN, tachycardia: vitals improved 6. BP at low normal, prob influenced by IV narcotics. IVF boluses PRN 7. Ulcerative Colitis: on mesalamine, pancreatic enzymes, macrobiotics 8. Depression: on zyprexa 9. Smoker: nicotine patch 10. Migraine: imitrex PRN 11. chest pain: musculoskeletal from chest tubes fentanyl, Oxy PO PRN History of Present Illness History of Present Illness Patient sitting up in bed when evaluated this AM in ICU. doyle out pain 10/10 after walking doing better s/p VATS, drainage of empyema and pulmonary decortication. chest tubes in place. Vitals Vitals Vital Signs Date Time Temp Pulse Resp B/P Pulse Ox O2 Delivery O2 Flow Rate FiO2 09/07/16 08:45 100 Nasal Cannula 3.0 09/07/16 08:11 87 16 139/86 09/07/16 04:00 98.0 98.0 Physical Exam Physical Exam GENERAL: NAD, Alert HEENT: PERRL, OC/OP NECK: Supple, no JVD, no LN LUNGS: Clear HEART: S1S2, no gallop, no murmur ABD: Soft, NT, no organomegaly, no rebound EXT: No edema, no cyanosis [employer]: Alert, oriented x 3, no focal neurologic deficit SKIN: No rash IV: ok General: Alert, Oriented X3, No acute distress Heart: Normal S1, Normal S2, No murmurs, Other Lungs: Other (decrease bs) Abdomen: Soft, No tenderness Extremities: No edema Skin: Other Labs LABS Laboratory Tests Test 09/07/16 05:52 White Blood Count 9.7x10^3/uL (4.0-11.0) Red Blood Count 2.43x10^6/uL (3.50-5.40) Hemoglobin 7.3g/dL (12.0-15.5) Hematocrit 21.3% (36.0-47.0) Mean Corpuscular Volume 88fL (79-100) Mean Corpuscular Hemoglobin 30pg (25-35) Mean Corpuscular Hemoglobin Concent 34g/dL (31-37) Red Cell Distribution Width 14.7% (11.5-14.5) Platelet Count 194x10^3/uL (140-400) Neutrophils (%) (Auto) 81% (31-73) Lymphocytes (%) (Auto) 10% (24-48) Monocytes (%) (Auto) 7% (0-9) Eosinophils (%) (Auto) 1% (0-3) Basophils (%) (Auto) 1% (0-3) Neutrophils # (Auto) 7.9x10^3uL (1.8-7.7) Lymphocytes # (Auto) 0.9x10^3/uL (1.0-4.8) Monocytes # (Auto) 0.7x10^3/uL (0.0-1.1) Eosinophils # (Auto) 0.1x10^3/uL (0.0-0.7) Basophils # (Auto) 0.1x10^3/uL (0.0-0.2) Sodium Level 139mmol/L (136-145) Potassium Level 3.7mmol/L (3.5-5.1) Chloride Level 105mmol/L (98-107) Carbon Dioxide Level 28mmol/L (21-32) Anion Gap 6 (6-14) Blood Urea Nitrogen 9mg/dL (7-20) Creatinine 0.8mg/dL (0.6-1.0) Estimated GFR (Cockcroft-Gault) 74.5 Glucose Level 93mg/dL (70-99) Calcium Level 7.8mg/dL (8.5-10.1) Assessment and Plan Assessmemt and Plan OK with transfer out of ICU str improving pain still an issue PULM following Problems Medical Problems: (1) CAP (community acquired pneumonia) Status: Acute (2) Empyema of lung Status: Acute Problems: Comment Review of Relevant I have reviewed the following items randi (where applicable) has been applied. Labs Laboratory Tests Test 09/05/16 15:22 09/05/16 17:50 09/05/16 18:15 09/05/16 20:00 Body Fluid pH 6.9 Body Fluid Total Protein 5.3g/dL (.) Body Fluid Lactate Dehydrogenase 6508IU/L (.) O2 Saturation 96% (92-99) 98% (92-99) Arterial Blood pH 7.10 (7.35-7.45) 7.31 (7.35-7.45) Arterial Blood pCO2 at Patient Temp 47mmHg (35-46) 38mmHg (35-46) Arterial Blood pO2 at Patient Temp 110mmHg (75-108) 131mmHg (75-108) Arterial Blood HCO3 14mmol/L (21-28) 19mmol/L (21-28) Arterial Blood Base Excess -15mmol/L (-3-3) -7mmol/L (-3-3) FiO2 100 100 White Blood Count 36.5x10^3/uL (4.0-11.0) Red Blood Count 2.72x10^6/uL (3.50-5.40) Hemoglobin 7.7g/dL (12.0-15.5) Hematocrit 23.4% (36.0-47.0) Mean Corpuscular Volume 86fL (79-100) Mean Corpuscular Hemoglobin 28pg (25-35) Mean Corpuscular Hemoglobin Concent 33g/dL (31-37) Red Cell Distribution Width 14.2% (11.5-14.5) Platelet Count 359x10^3/uL (140-400) Neutrophils (%) (Auto) 97% (31-73) Lymphocytes (%) (Auto) 2% (24-48) Monocytes (%) (Auto) 1% (0-9) Eosinophils (%) (Auto) 0% (0-3) Basophils (%) (Auto) 0% (0-3) Neutrophils # (Auto) 35.3x10^3uL (1.8-7.7) Lymphocytes # (Auto) 0.6x10^3/uL (1.0-4.8) Monocytes # (Auto) 0.5x10^3/uL (0.0-1.1) Eosinophils # (Auto) 0.0x10^3/uL (0.0-0.7) Basophils # (Auto) 0.2x10^3/uL (0.0-0.2) Segmented Neutrophils % 86% (35-66) Band Neutrophils % 12% (0-9) Lymphocytes % 2% (24-48) Toxic Granulation Slight Platelet Estimate Adequate (ADEQUATE) Polychromasia Slight Hypochromasia Mod Poikilocytosis Slight Anisocytosis Slight Crenated Cell Present Prothrombin Time 16.7SEC (11.7-14.0) Prothromb Time International Ratio 1.4 (0.8-1.1) Sodium Level 138mmol/L (136-145) Potassium Level 4.8mmol/L (3.5-5.1) Chloride Level 105mmol/L (98-107) Carbon Dioxide Level 21mmol/L (21-32) Anion Gap 12 (6-14) Blood Urea Nitrogen 11mg/dL (7-20) Creatinine 0.7mg/dL (0.6-1.0) Estimated GFR (Cockcroft-Gault) 86.9 Glucose Level 171mg/dL (70-99) Calcium Level 7.4mg/dL (8.5-10.1) Test 09/05/16 20:41 09/06/16 06:00 09/07/16 05:52 O2 Saturation 98% (92-99) Arterial Blood pH 7.46 (7.35-7.45) Arterial Blood pCO2 at Patient Temp 32mmHg (35-46) Arterial Blood pO2 at Patient Temp 135mmHg (75-108) Arterial Blood HCO3 22mmol/L (21-28) Arterial Blood Base Excess -1mmol/L (-3-3) FiO2 50 White Blood Count 18.5x10^3/uL (4.0-11.0) 9.7x10^3/uL (4.0-11.0) Red Blood Count 3.60x10^6/uL (3.50-5.40) 2.43x10^6/uL (3.50-5.40) Hemoglobin 10.5g/dL (12.0-15.5) 7.3g/dL (12.0-15.5) Hematocrit 30.9% (36.0-47.0) 21.3% (36.0-47.0) Mean Corpuscular Volume 86fL (79-100) 88fL (79-100) Mean Corpuscular Hemoglobin 29pg (25-35) 30pg (25-35) Mean Corpuscular Hemoglobin Concent 34g/dL (31-37) 34g/dL (31-37) Red Cell Distribution Width 14.5% (11.5-14.5) 14.7% (11.5-14.5) Platelet Count 284x10^3/uL (140-400) 194x10^3/uL (140-400) Neutrophils (%) (Auto) 90% (31-73) 81% (31-73) Lymphocytes (%) (Auto) 6% (24-48) 10% (24-48) Monocytes (%) (Auto) 5% (0-9) 7% (0-9) Eosinophils (%) (Auto) 0% (0-3) 1% (0-3) Basophils (%) (Auto) 0% (0-3) 1% (0-3) Neutrophils # (Auto) 16.6x10^3uL (1.8-7.7) 7.9x10^3uL (1.8-7.7) Lymphocytes # (Auto) 1.0x10^3/uL (1.0-4.8) 0.9x10^3/uL (1.0-4.8) Monocytes # (Auto) 0.8x10^3/uL (0.0-1.1) 0.7x10^3/uL (0.0-1.1) Eosinophils # (Auto) 0.0x10^3/uL (0.0-0.7) 0.1x10^3/uL (0.0-0.7) Basophils # (Auto) 0.1x10^3/uL (0.0-0.2) 0.1x10^3/uL (0.0-0.2) Prothrombin Time 15.0SEC (11.7-14.0) Prothromb Time International Ratio 1.3 (0.8-1.1) Sodium Level 140mmol/L (136-145) 139mmol/L (136-145) Potassium Level 4.5mmol/L (3.5-5.1) 3.7mmol/L (3.5-5.1) Chloride Level 105mmol/L (98-107) 105mmol/L (98-107) Carbon Dioxide Level 26mmol/L (21-32) 28mmol/L (21-32) Anion Gap 9 (6-14) 6 (6-14) Blood Urea Nitrogen 12mg/dL (7-20) 9mg/dL (7-20) Creatinine 0.7mg/dL (0.6-1.0) 0.8mg/dL (0.6-1.0) Estimated GFR (Cockcroft-Gault) 86.9 74.5 BUN/Creatinine Ratio 17 (6-20) Glucose Level 100mg/dL (70-99) 93mg/dL (70-99) Calcium Level 7.7mg/dL (8.5-10.1) 7.8mg/dL (8.5-10.1) Total Bilirubin 0.7mg/dL (0.2-1.0) Aspartate Amino Transf (AST/SGOT) 110U/L (15-37) Alanine Aminotransferase (ALT/SGPT) 63U/L (14-59) Alkaline Phosphatase 79U/L (46-116) Total Protein 5.6g/dL (6.4-8.2) Albumin 1.2g/dL (3.4-5.0) Albumin/Globulin Ratio 0.3 (1.0-1.7) Laboratory Tests Test 09/07/16 05:52 White Blood Count 9.7x10^3/uL (4.0-11.0) Red Blood Count 2.43x10^6/uL (3.50-5.40) Hemoglobin 7.3g/dL (12.0-15.5) Hematocrit 21.3% (36.0-47.0) Mean Corpuscular Volume 88fL (79-100) Mean Corpuscular Hemoglobin 30pg (25-35) Mean Corpuscular Hemoglobin Concent 34g/dL (31-37) Red Cell Distribution Width 14.7% (11.5-14.5) Platelet Count 194x10^3/uL (140-400) Neutrophils (%) (Auto) 81% (31-73) Lymphocytes (%) (Auto) 10% (24-48) Monocytes (%) (Auto) 7% (0-9) Eosinophils (%) (Auto) 1% (0-3) Basophils (%) (Auto) 1% (0-3) Neutrophils # (Auto) 7.9x10^3uL (1.8-7.7) Lymphocytes # (Auto) 0.9x10^3/uL (1.0-4.8) Monocytes # (Auto) 0.7x10^3/uL (0.0-1.1) Eosinophils # (Auto) 0.1x10^3/uL (0.0-0.7) Basophils # (Auto) 0.1x10^3/uL (0.0-0.2) Sodium Level 139mmol/L (136-145) Potassium Level 3.7mmol/L (3.5-5.1) Chloride Level 105mmol/L (98-107) Carbon Dioxide Level 28mmol/L (21-32) Anion Gap 6 (6-14) Blood Urea Nitrogen 9mg/dL (7-20) Creatinine 0.8mg/dL (0.6-1.0) Estimated GFR (Cockcroft-Gault) 74.5 Glucose Level 93mg/dL (70-99) Calcium Level 7.8mg/dL (8.5-10.1) Microbiology 09/05/16 Anaerobic/Aerobic Culture, Resulted Pending 09/05/16 Anaerobic Culture Result 1 (BRUCE), Resulted Pending 09/05/16 Aerobic Culture - Preliminary, Resulted 09/05/16 Aerobic Culture Result 1 (BRUCE) - Preliminary, Resulted 09/05/16 Gram Stain - Final, Complete Medications Current Medications Acetaminophen (Tylenol) 325 mg PRN Q6HRS PRN PO MILD PAIN / TEMP Last administered on 08/26/16 08:29; Start 08/25/16 at 12:45 Acetaminophen/ Hydrocodone Bitart (Lortab 5/325) 1 tab PRN Q6HRS PRN PO MODERATE PAIN Last administered on 08/27/16 02:06; Start 08/25/16 at 12:45; Stop 08/29/16 at 16:41; Status DC Hydralazine HCl (Apresoline) 10 mg PRN Q4HRS PRN IVP ELEVATED BP, SEE COMMENTS Last administered on 08/26/16 05:07; Start 08/25/16 at 12:45 Ondansetron HCl (Zofran) 4 mg PRN Q8HRS PRN IV NAUSEA/VOMITING Last administered on 08/25/16 15:42; Start 08/25/16 at 12:45; Stop 08/27/16 at 08:44 ; Status DC Albuterol Sulfate 2.5 mg 2.5 mg PRN Q4HRS PRN NEB SHORTNESS OF BREATH; Start at 12:45 Piperacillin Sod/ Tazobactam Sod 3.375 gm/Sodium Chloride 50 ml @ 100 mls/hr Q6HRS IV Last administered on 09/07/16 05:47; Start 08/25/16 at 13:00 Linezolid (Zyvox Premix) 300 ml @ 300 mls/hr Q12HR IV Last administered on 21:06; Start 08/25/16 at 14:00 Piperacillin Sod/ Tazobactam Sod 1 each 1 each PRN DAILY PRN MC SEE COMMENTS; Start 08/25/16 at 13:45; Stop 08/27/16 at 12:41; Status DC Levofloxacin/ Dextrose (LEVAQUIN 750mg PREMIX) 150 ml @ 100 mls/hr Q24H IV Last administered on 08/28/16 13:51; Start 08/25/16 at 14:00; Stop 08/28/16 at 14:37; Status DC Lidocaine/Sodium Bicarbonate (Buffered Lidocaine 1%) 20 ml STK-MED ONCE IJ ; Start 08/25/16 at 14:00; Stop 08/25/16 at 14:01; Status DC Lidocaine/Sodium Bicarbonate (Buffered Lidocaine 1%) 5 ml 1X ONCE IJ Last administered on 08/25/16 14:59; Start 08/25/16 at 15:00; Stop 08/25/16 at 15:01 ; Status DC Info (Do NOT chart on this placeholder) 1 each 1X ONCE MC ; Start 08/25/16 at 17:00; Stop 08/25/16 at 17:01; Status UNV Pneumococcal Polyvalent Vaccine (Do NOT chart on this placeholder) 1 each 1X ONCE MC ; Start 08/25/16 at 17:00; Stop 08/25/16 at 17:01; Status UNV Influenza Virus Vaccine Quadrival (Fluarix Quad [id number] Syringe) 0.5 ml ONCE ONCE VAX IM ; Start 08/26/16 at 09:00; Stop 08/26/16 at 09:01; Status DC Pneumococcal Polyvalent Vaccine (Pneumovax 23) 0.5 ml ONCE ONCE VAX IM ; Start 08/26/16 at 09:00; Stop 08/26/16 at 09:01; Status DC Enoxaparin Sodium (Lovenox 40mg Syringe) 40 mg Q24H SQ Last administered on 08:19; Start 08/26/16 at 09:00; Stop 08/29/16 at 11:45; Status DC Fentanyl Citrate (Fentanyl 2ml Vial) 25 mcg PRN Q4HRS PRN IV PAIN Last administered on 08/27/16 06:13; Start 08/26/16 at 08:30; Stop 08/29/16 at 15:07 ; Status DC Potassium Chloride (Klor-Con) 40 meq 1X ONCE PO Last administered on 11:24; Start 08/26/16 at 10:45; Stop 08/26/16 at 10:49; Status DC Mesalamine (Lialda) 4.8 gm DAILY06 PO Last administered on 09/07/16 05:47; Start 08/26/16 at 13:30 Olanzapine (Zyprexa) 2.5 mg HS PO Last administered on 09/06/16 21:04; Start 08/26/16 at 21:00 Sumatriptan Succinate (Imitrex) 100 mg PRN Q2HR PRN PO MIGRAINE HEADACHE Last administered on 09/07/16 06:50; Start 08/26/16 at 13:30 Tizanidine HCl (Zanaflex) 4 mg QHS PO Last administered on 08/26/16 19:57; Start 08/26/16 at 21:00; Stop 08/26/16 at 21:00; Status DC Tramadol HCl (Ultram) 50 mg BID PO Last administered on 08/31/16 07:48; Start 08/26/16 at 14:00; Stop 08/31/16 at 15:54; Status DC Ascorbic Acid (Vitamin C) 1,000 mg DAILY PO Last administered on 09/07/16 08: 09; Start 08/27/16 at 09:00 Amylase/Lipase/ Protease (Zenpep 5,000) 5 cap TIDWMEALS PO Last administered on 09/07/16 08:09; Start 08/26/16 at 17:00 Niacin (Slo-Niacin) 500 mg QHS PO Last administered on 09/06/16 21:04; Start 08/26/16 at 21:00 Pantoprazole Sodium (Protonix) 40 mg DAILYAC PO Last administered on 09/07/16 08:10; Start 08/26/16 at 14:00 Non-Formulary Medication 1 tab DAILY PO ; Start 08/27/16 at 09:00; Status UNV Diphenoxylate HCl/ Atropine (Lomotil) 1 tab PRN QID PRN PO DIARRHEA Last administered on 09/03/16 17:27; Start 08/26/16 at 13:45 Tizanidine HCl (Zanaflex) 20 mg QHS PO Last administered on 09/06/16 21:04; Start 08/26/16 at 21:00 Acetaminophen/ Hydrocodone Bitart (Lortab 5/325) 2 tab PRN Q6HRS PRN PO SEVERE PAIN Last administered on 08/29/16 10:47; Start 08/27/16 at 04:45; Stop at 16:41; Status DC Ondansetron HCl (Zofran) 4 mg PRN Q6HRS PRN IV NAUSEA/VOMITING Last administered on 09/05/16 23:16; Start 08/27/16 at 08:42 Vancomycin HCl 125 mg [id number] PO Last administered on 08/28/16 20:54; Start at 16:00; Stop 08/29/16 at 10:24; Status DC Lactobacillus Acidophilus 1 tab 1 tab TIDWMEALS PO Last administered on 08:09; Start 08/27/16 at 17:00 Sodium Chloride (Iv Sodium Chloride 0.9% 500ml Bag) 500 ml @ 500 mls/hr 1X ONCE IV Last administered on 08/28/16 00:52; Start 08/28/16 at 01:00; Stop at 01:59; Status DC Nicotine (Nicoderm Cq 21mg) 1 patch PRN DAILY PRN TD SMOKING CESSATION; Start 08/28/16 at 09:30 Cetirizine HCl (Zyrtec) 10 mg DAILY PO Last administered on 09/07/16 08:09; Start 08/28/16 at 10:00 Vitamin D (Vitamin D3) 1,000 unit DAILY PO Last administered on 09/07/16 08:09 ; Start 08/28/16 at 10:00 Iohexol (Omnipaque 300 Mg/ml) 75 ml 1X ONCE IV Last administered on 08/28/16 10:53; Start 08/28/16 at 10:15; Stop 08/28/16 at 10:16; Status DC Info (Do NOT chart on this entry -- for MONITORING) 1 each PRN DAILY PRN MC SEE COMMENTS; Start 08/28/16 at 10:00; Stop 08/30/16 at 09:59; Status DC Potassium Chloride (Klor-Con) 40 meq 1X ONCE PO Last administered on 13:52; Start 08/28/16 at 13:00; Stop 08/28/16 at 13:01; Status DC Lidocaine/Sodium Bicarbonate (Buffered Lidocaine 1%) 20 ml STK-MED ONCE IJ ; Start 08/29/16 at 08:36; Stop 08/29/16 at 08:37; Status DC Naloxone HCl (Narcan) 0.4 mg STK-MED ONCE .ROUTE ; Start 08/29/16 at 08:37; Stop 08/29/16 at 08:38; Status DC Flumazenil (Romazicon) 0.5 mg STK-MED ONCE IV ; Start 08/29/16 at 08:37; Stop at 08:38; Status DC Midazolam HCl (Versed) 5 mg STK-MED ONCE .ROUTE ; Start 08/29/16 at 08:37; Stop 08/29/16 at 08:38; Status DC Fentanyl Citrate (Fentanyl 5ml Vial) 250 mcg STK-MED ONCE .ROUTE ; Start at 08:37; Stop 08/29/16 at 08:38; Status DC Lidocaine/Sodium Bicarbonate (Buffered Lidocaine 1%) 6 ml 1X ONCE IJ Last administered on 08/29/16 09:09; Start 08/29/16 at 09:15; Stop 08/29/16 at 09:16 ; Status DC Midazolam HCl (Versed) 2 mg 1X ONCE IV Last administered on 08/29/16 09:08; Start 08/29/16 at 09:15; Stop 08/29/16 at 09:16; Status DC Fentanyl Citrate (Fentanyl 5ml Vial) 100 mcg 1X ONCE IV Last administered on 09:08; Start 08/29/16 at 09:15; Stop 08/29/16 at 09:16; Status DC Enoxaparin Sodium (Lovenox 40mg Syringe) 40 mg Q24H SQ Last administered on 16:01; Start 08/29/16 at 16:00; Stop 08/31/16 at 10:23; Status DC Acetaminophen/ Hydrocodone Bitart (Lortab 5/325) 1 tab PRN Q4HRS PRN PO MODERATE PAIN; Start 08/29/16 at 16:45; Stop 08/31/16 at 15:54; Status DC Acetaminophen/ Hydrocodone Bitart (Lortab 5/325) 2 tab PRN Q4HRS PRN PO SEVERE PAIN Last administered on 08/31/16 15:14; Start 08/29/16 at 16:45; Stop at 15:54; Status DC Lidocaine/Sodium Bicarbonate (Buffered Lidocaine 1%) 20 ml STK-MED ONCE IJ ; Start 08/30/16 at 13:57; Stop 08/30/16 at 13:58; Status DC Midazolam HCl (Versed) 2 mg STK-MED ONCE .ROUTE ; Start 08/30/16 at 14:22; Stop 08/30/16 at 14:23; Status DC Fentanyl Citrate (Fentanyl 2ml Vial) 100 mcg STK-MED ONCE .ROUTE ; Start at 14:22; Stop 08/30/16 at 14:23; Status DC Lidocaine/Sodium Bicarbonate (Buffered Lidocaine 1%) 4 ml 1X ONCE IJ Last administered on 08/30/16 15:08; Start 08/30/16 at 14:50; Stop 08/30/16 at 15:04 ; Status DC Midazolam HCl (Versed) 1 mg 1X ONCE IV Last administered on 08/30/16 15:09; Start 08/30/16 at 14:45; Stop 08/30/16 at 15:04; Status DC Fentanyl Citrate (Fentanyl 2ml Vial) 50 mcg 1X ONCE IV Last administered on 15:09; Start 08/30/16 at 14:45; Stop 08/30/16 at 15:05; Status DC Metoprolol Tartrate 25 mg 25 mg BID PO Last administered on 08/30/16 21:44; Start 08/30/16 at 21:00; Stop 08/31/16 at 17:09; Status DC Alteplase, Recombinant 5 mg/ Sterile Water 50 ml @ 5 mls/hr 1X ONCE IV ; Start 08/31/16 at 10:30; Stop 08/31/16 at 15:27; Status DC Alteplase, Recombinant 5 mg/ Sterile Water 50 ml @ 5 mls/hr 1X ONCE IV ; Start 08/31/16 at 10:45; Stop 08/31/16 at 15:27; Status DC Alteplase, Recombinant 5 mg/ Sterile Water 50 ml @ 5 mls/hr 1X ONCE INT CAT Last administered on 08/31/16 12:40; Start 08/31/16 at 15:27; Stop 08/31/16 at 20:29; Status DC Alteplase, Recombinant/ Sterile Water (Cathflo) 50 ml @ 5 mls/hr 1X ONCE INT CAT Last administered on 08/31/16 12:40; Start 08/31/16 at 15:27; Stop at 20:44; Status DC Oxycodone HCl (Roxicodone) 5 mg PRN Q3HRS PRN PO MILD-MOD PAIN Last administered on 09/06/16 16:45; Start 08/31/16 at 16:00 Morphine Sulfate 2 mg PRN Q6HRS PRN IV PAIN; Start 08/31/16 at 16:00; Stop at 18:07; Status DC Oxycodone HCl (Roxicodone) 10 mg PRN Q3HRS PRN PO SEVERE PAIN Last administered on 09/07/16 05:47; Start 08/31/16 at 16:00 Fentanyl Citrate (Fentanyl 2ml Vial) 50 mcg PRN Q2HR PRN IV PAIN SEV Last administered on 09/07/16 08:08; Start 08/31/16 at 18:15 Morphine Sulfate 2 mg 2 mg ONCE ONCE IV Last administered on 08/31/16 18:05; Start 08/31/16 at 20:45; Stop 08/31/16 at 20:46; Status DC Sodium Chloride (Iv Sodium Chloride 0.9% 500ml Bag) 500 ml @ 500 mls/hr 1X ONCE IV Last administered on 09/01/16 06:30; Start 09/01/16 at 06:30; Stop at 07:29; Status DC Alteplase, Recombinant (Cathflo) 2 mg 1X ONCE INT CAT Last administered on 06:35; Start 09/01/16 at 07:00; Stop 09/01/16 at 07:01; Status DC Albuterol Sulfate 2.5 mg 2.5 mg RTQID NEB Last administered on 09/07/16 09:18 ; Start 09/01/16 at 12:00 Sodium Chloride 1,000 ml @ 1,000 mls/hr 1X ONCE IV Last administered on 12:09; Start 09/01/16 at 11:45; Stop 09/01/16 at 12:44; Status DC Alteplase, Recombinant 5 mg/ Sterile Water 50 ml @ 5 mls/hr 1X ONCE INT CAT Last administered on 09/01/16 12:30; Start 09/01/16 at 12:30; Stop 09/01/16 at 22:29; Status DC Alteplase, Recombinant/ Sterile Water (Cathflo) 50 ml @ 5 mls/hr 1X ONCE INT CAT Last administered on 09/01/16 12:30; Start 09/01/16 at 12:30; Stop at 22:29; Status DC Alteplase, Recombinant 2 mg 2 mg 1X ONCE INT CAT Last administered on 15:18; Start 09/01/16 at 13:00; Stop 09/01/16 at 13:01; Status DC Sodium Chloride (Iv Sodium Chloride 0.9% 1000ml Bag) 1,000 ml @ 1,000 mls/hr 1X ONCE IV Last administered on 09/01/16 23:45; Start 09/01/16 at 23:45; Stop 09/02/16 at 00:44; Status DC Fentanyl Citrate (Fentanyl 2ml Vial) 50 mcg 1X ONCE IV Last administered on 15:30; Start 09/03/16 at 15:30; Stop 09/03/16 at 15:35; Status DC Bupivacaine HCl (Sensorcaine Mpf 0.5%) 30 ml STK-MED ONCE .ROUTE ; Start at 12:12; Stop 09/05/16 at 12:13; Status DC Lidocaine HCl 20 ml STK-MED ONCE .ROUTE ; Start 09/05/16 at 12:13; Stop at 12:14; Status DC Cellulose 1 each STK-MED ONCE .ROUTE ; Start 09/05/16 at 12:13; Stop 09/05/16 at 12:14; Status DC Lidocaine HCl 100 mg 100 mg STK-MED ONCE .ROUTE ; Start 09/05/16 at 13:16; Stop 09/05/16 at 13:17; Status DC Propofol (Diprivan) 100 ml @ As Directed STK-MED ONCE IV ; Start 09/05/16 at 13 :16; Stop 09/05/16 at 13:17; Status DC Fentanyl Citrate (Fentanyl 2ml Vial) 100 mcg STK-MED ONCE .ROUTE ; Start at 13:16; Stop 09/05/16 at 13:17; Status DC Rocuronium Diamond (Zemuron) 50 mg STK-MED ONCE .ROUTE ; Start 09/05/16 at 13:16 ; Stop 09/05/16 at 13:17; Status DC Lidocaine HCl 1 ml 1 ml STK-MED ONCE .ROUTE ; Start 09/05/16 at 13:20; Stop at 13:21; Status DC Lactated Ringer's (Iv Lactated Ringers) 1,000 ml @ 100 mls/hr Q10H IV Last administered on 09/06/16t 06:22; Start 09/05/16 at 14:15; Stop 09/06/16 at 18:30 ; Status DC Lidocaine HCl (Xylocaine-Mpf 1% Vial) 2 ml 1X ONCE INJ Last administered on t 13:35; Start 09/05/16 at 14:30; Stop 09/05/16 at 14:31; Status DC Dexamethasone Sodium Phosphate (Decadron) 20 mg STK-MED ONCE .ROUTE ; Start at 14:49; Stop 09/05/16 at 14:50; Status DC Sevoflurane (Ultane) 90 ml STK-MED ONCE IH ; Start 09/05/16 at 14:49; Stop 09/05 at 14:50; Status DC Fentanyl Citrate (Fentanyl 2ml Vial) 100 mcg STK-MED ONCE .ROUTE ; Start at 15:07; Stop 09/05/16 at 15:08; Status DC Metoprolol Tartrate (Lopressor) 5 mg STK-MED ONCE .ROUTE ; Start 09/05/16 at 15: 09; Stop 09/05/16 at 15:10; Status DC Ondansetron HCl (Zofran) 4 mg STK-MED ONCE .ROUTE ; Start 09/05/16 at 15:23; Stop 09/05/16 at 15:24; Status DC Glycopyrrolate (Robinul) 1 mg STK-MED ONCE .ROUTE ; Start 09/05/16 at 15:23; Stop 09/05/16 at 15:24; Status DC Neostigmine Methylsulfate 5 mg STK-MED ONCE .ROUTE ; Start 09/05/16 at 15:23; Stop 09/05/16 at 15:24; Status DC Rocuronium Diamond (Zemuron) 50 mg STK-MED ONCE .ROUTE ; Start 09/05/16 at 15:24 ; Stop 09/05/16 at 15:25; Status DC Ondansetron HCl (Zofran) 4 mg PRN Q6HRS PRN IV Nausea; Start 09/05/16 at 17:15 ; Stop 09/05/16 at 19:00; Status DC Fentanyl Citrate (Fentanyl 2ml Vial) 25 mcg PRN Q5MIN PRN IV MILD PAIN; Start 09/05/16 at 17:15; Stop 09/05/16 at 19:00; Status DC Fentanyl Citrate (Fentanyl 2ml Vial) 50 mcg PRN Q5MIN PRN IV MODERATE PAIN; Start 09/05/16 at 17:15; Stop 09/05/16 at 19:00; Status DC Morphine Sulfate 1 mg 1 mg PRN Q10MIN PRN IV SEVERE PAIN; Start 09/05/16 at 17: 15; Stop 09/05/16 at 19:00; Status DC Lactated Ringer's (Iv Lactated Ringers) 1,000 ml @ 0 mls/hr Q0M IV ; Start at 17:06; Stop 09/05/16 at 19:00; Status DC Lidocaine HCl 2 ml 1X PRN PRN ID IV START; Start 09/05/16 at 17:15; Stop at 19:00; Status DC Hydromorphone HCl (Dilaudid) 0.5 mg PRN Q10MIN PRN IV SEV PAIN,Second choice; Start 09/05/16 at 17:15; Stop 09/05/16 at 19:00; Status DC Prochlorperazine Edisylate (Compazine) 5 mg PACU PRN PRN IV NAUSEA; Start 09/05 at 17:15; Stop 09/05/16 at 19:00; Status DC Phenylephrine HCl (Fortino-Synephrine Inj) 10 mg STK-MED ONCE .ROUTE ; Start at 17:37; Stop 09/05/16 at 17:38; Status DC Sodium Bicarbonate 50 meq 50 meq STK-MED ONCE .ROUTE ; Start 09/05/16 at 17:58; Stop 09/05/16 at 17:59; Status DC Lactated Ringer's 500 ml @ 75 mls/hr 1X ONCE IV Last administered on t 22:02; Start 09/05/16 at 21:30; Stop 09/06/16 at 04:09; Status DC Sodium Chloride (Iv Sodium Chloride 0.9% 500ml Bag) 500 ml @ 500 mls/hr 1X ONCE IV Last administered on 09/07/16 00:17; Start 09/07/16 at 00:00; Stop at 00:59; Status DC Active Scripts Active Reported [diphen/atropine] 2.5 Mg PO PRN QID PRN Prilosec Otc (Omeprazole Magnesium) 20 Mg Tablet.dr 1 Tab PO DAILY Lialda (Mesalamine) 1.2 Gm Tablet.dr 4 Tab PO DAILY06 Tizanidine Hcl 4 Mg Tablet 5 Tab PO QHS Olanzapine 2.5 Mg Tablet 2.5 Mg PO HS Zyrtec (Cetirizine Hcl) 10 Mg Capsule 10 Mg PO DAILY Dhea 50 Mg Tablet (Prasterone (Dhea)/Calcium Carb) 1 Each Tablet 1 Tab PO DAILY Niacin 500 Mg Tablet 500 Mg PO HS Vitamin D3 (Cholecalciferol (Vitamin D3)) 1,000 Unit Capsule 1,000 Unit PO DAILY Vitamin C (Ascorbic Acid) 1,000 Mg Tab.chew 1,000 Mg PO DAILY Imitrex (Sumatriptan Succinate) 100 Mg Tablet 100 Mg PO ONCE PRN Tramadol Hcl 50 Mg Tablet 4 Tab PO BID Jolie Lambert 25,000 Units Capsule (Lipase/Protease/Amylase) 1 Each Capsule. 1 Each PO TIDAFTMEAL Vitals/I & O Vital Sign - Last 24 Hours 09/06/16 09/06/16 09/06/16 09/06/16 10:00 11:00 11:50 12:00 Pulse 124 125 119 Resp 13 20 16 B/P 152/70 144/71 110/78 Pulse Ox 100 100 96 O2 Delivery Nasal Cannula Nasal Cannula Nasal Cannula O2 Flow Rate 3.0 3.0 3.0 09/06/16 09/06/16 09/06/16 09/06/16 12:00 12:00 12:57 13:00 Temp 98.3 98.3 Pulse 120 116 Resp 22 21 B/P 153/72 145/69 Pulse Ox 100 100 100 O2 Delivery Nasal Cannula Nasal Cannula Nasal Cannula Nasal Cannula O2 Flow Rate 3.0 3.0 3.0 3.0 09/06/16 09/06/16 09/06/16 09/06/16 14:00 14:11 15:00 16:00 Pulse 126 121 Resp 26 25 B/P 151/69 125/65 Pulse Ox 100 94 O2 Delivery Nasal Cannula Nasal Cannula Nasal Cannula Nasal Cannula O2 Flow Rate 3.0 3.0 3.0 3.0 09/06/16 09/06/16 09/06/16 09/06/16 16:00 16:00 16:45 16:45 Temp 98.3 98.3 Pulse 113 115 Resp 20 B/P 136/66 125/69 Pulse Ox 94 95 95 O2 Delivery Room Air Room Air Room Air 09/06/16 09/06/16 09/06/16 09/06/16 16:48 17:00 17:46 18:00 Pulse 118 128 Resp 21 24 B/P 144/76 142/72 Pulse Ox 92 98 97 94 O2 Delivery Room Air Nasal Cannula Nasal Cannula Nasal Cannula O2 Flow Rate 3.0 2.0 3.0 09/06/16 09/06/16 09/06/16 09/06/16 19:00 19:17 19:20 20:00 Pulse 118 Resp 20 14 B/P Pulse Ox 100 100 100 O2 Delivery Nasal Cannula Nasal Cannula Nasal Cannula Nasal Cannula O2 Flow Rate 1.0 1.0 3.0 1.0 09/06/16 09/06/16 09/06/16 09/06/16 20:00 20:02 21:00 22:00 Temp 99.0 99.0 Pulse 116 114 112 Resp 20 20 20 18 B/P 122/68 127/71 Pulse Ox 100 100 100 99 O2 Delivery Nasal Cannula Nasal Cannula Nasal Cannula Nasal Cannula O2 Flow Rate 1.0 1.0 1.0 1.0 09/06/16 09/06/16 09/06/16 09/07/16 23:00 23:59 23:59 00:16 Temp 98.8 98.8 Pulse 99 98 Resp 18 18 20 B/P 88/53 88/57 Pulse Ox 99 99 99 O2 Delivery Nasal Cannula Nasal Cannula Nasal Cannula Nasal Cannula O2 Flow Rate 1.0 1.0 1.0 1.0 09/07/16 09/07/16 09/07/16 09/07/16 01:00 02:00 03:00 03:27 Pulse 94 93 90 Resp 18 16 18 16 B/P 98/60 98/64 98/63 Pulse Ox 97 99 100 99 O2 Delivery Nasal Cannula Nasal Cannula Nasal Cannula Nasal Cannula O2 Flow Rate 1.0 1.0 1.0 1.0 09/07/16 09/07/16 09/07/16 09/07/16 03:55 04:00 04:00 05:00 Temp 98.0 98.0 Pulse 86 93 Resp 18 18 20 B/P 86/51 98/55 Pulse Ox 99 99 99 O2 Delivery Nasal Cannula Nasal Cannula Nasal Cannula Nasal Cannula O2 Flow Rate 1.0 1.0 1.0 1.0 09/07/16 09/07/16 09/07/16 09/07/16 05:47 06:00 06:50 07:00 Pulse 96 99 Resp 20 18 20 18 B/P 112/68 113/67 Pulse Ox 100 100 100 99 O2 Delivery Nasal Cannula Nasal Cannula Nasal Cannula Nasal Cannula O2 Flow Rate 1.0 1.0 1.0 1.0 09/07/16 09/07/16 09/07/16 08:08 08:11 08:45 Pulse 87 Resp 18 16 B/P 139/86 Pulse Ox 96 96 100 O2 Delivery Nasal Cannula Nasal Cannula Nasal Cannula O2 Flow Rate 3.0 Intake and Output 09/06/16 09/06/16 09/07/16 15:00 23:00 07:00 Intake Total 1360 ml 600 ml 850 ml Output Total 1155 ml 480 ml 1040 ml Balance 205 ml 120 ml -190 ml KARENA VENEGAS MD Sep 07, 2016 09:54
--- NOTE | 2016-09-07 11:21 | PDOC ---
PULMONARY PROGRESS NOTES Subjective feels better, on RA s/p right de-cortication with extensive pleural peel removed air leak on both chest tube Vitals Vital Signs Date Time Temp Pulse Resp B/P Pulse Ox O2 Delivery O2 Flow Rate FiO2 09/07/16 09:56 16 94 Room Air 09/07/16 08:45 3.0 09/07/16 08:11 87 139/86 09/07/16 04:00 98.0 98.0 Comments ros as above, other sys otherwise neg General: Alert, No acute distress HEENT: Other (nc at perrl, throat nose clear) Lungs: Other (decrease bs) Cardiovascular: S1, S2 Abdomen: Soft, Non-tender, Other (no mass) Neuro Exam: Alert, Oriented, No Focal Findings Extremities: No Edema Skin: Warm Labs Laboratory Tests Test 09/05/16 15:22 09/05/16 17:50 09/05/16 18:15 09/05/16 20:00 Body Fluid pH 6.9 Body Fluid Total Protein 5.3g/dL (.) Body Fluid Lactate Dehydrogenase 6508IU/L (.) O2 Saturation 96% (92-99) 98% (92-99) Arterial Blood pH 7.10 (7.35-7.45) 7.31 (7.35-7.45) Arterial Blood pCO2 at Patient Temp 47mmHg (35-46) 38mmHg (35-46) Arterial Blood pO2 at Patient Temp 110mmHg (75-108) 131mmHg (75-108) Arterial Blood HCO3 14mmol/L (21-28) 19mmol/L (21-28) Arterial Blood Base Excess -15mmol/L (-3-3) -7mmol/L (-3-3) FiO2 100 100 White Blood Count 36.5x10^3/uL (4.0-11.0) Red Blood Count 2.72x10^6/uL (3.50-5.40) Hemoglobin 7.7g/dL (12.0-15.5) Hematocrit 23.4% (36.0-47.0) Mean Corpuscular Volume 86fL (79-100) Mean Corpuscular Hemoglobin 28pg (25-35) Mean Corpuscular Hemoglobin Concent 33g/dL (31-37) Red Cell Distribution Width 14.2% (11.5-14.5) Platelet Count 359x10^3/uL (140-400) Neutrophils (%) (Auto) 97% (31-73) Lymphocytes (%) (Auto) 2% (24-48) Monocytes (%) (Auto) 1% (0-9) Eosinophils (%) (Auto) 0% (0-3) Basophils (%) (Auto) 0% (0-3) Neutrophils # (Auto) 35.3x10^3uL (1.8-7.7) Lymphocytes # (Auto) 0.6x10^3/uL (1.0-4.8) Monocytes # (Auto) 0.5x10^3/uL (0.0-1.1) Eosinophils # (Auto) 0.0x10^3/uL (0.0-0.7) Basophils # (Auto) 0.2x10^3/uL (0.0-0.2) Segmented Neutrophils % 86% (35-66) Band Neutrophils % 12% (0-9) Lymphocytes % 2% (24-48) Toxic Granulation Slight Platelet Estimate Adequate (ADEQUATE) Polychromasia Slight Hypochromasia Mod Poikilocytosis Slight Anisocytosis Slight Crenated Cell Present Prothrombin Time 16.7SEC (11.7-14.0) Prothromb Time International Ratio 1.4 (0.8-1.1) Sodium Level 138mmol/L (136-145) Potassium Level 4.8mmol/L (3.5-5.1) Chloride Level 105mmol/L (98-107) Carbon Dioxide Level 21mmol/L (21-32) Anion Gap 12 (6-14) Blood Urea Nitrogen 11mg/dL (7-20) Creatinine 0.7mg/dL (0.6-1.0) Estimated GFR (Cockcroft-Gault) 86.9 Glucose Level 171mg/dL (70-99) Calcium Level 7.4mg/dL (8.5-10.1) Test 09/05/16 20:41 09/06/16 06:00 09/07/16 05:52 O2 Saturation 98% (92-99) Arterial Blood pH 7.46 (7.35-7.45) Arterial Blood pCO2 at Patient Temp 32mmHg (35-46) Arterial Blood pO2 at Patient Temp 135mmHg (75-108) Arterial Blood HCO3 22mmol/L (21-28) Arterial Blood Base Excess -1mmol/L (-3-3) FiO2 50 White Blood Count 18.5x10^3/uL (4.0-11.0) 9.7x10^3/uL (4.0-11.0) Red Blood Count 3.60x10^6/uL (3.50-5.40) 2.43x10^6/uL (3.50-5.40) Hemoglobin 10.5g/dL (12.0-15.5) 7.3g/dL (12.0-15.5) Hematocrit 30.9% (36.0-47.0) 21.3% (36.0-47.0) Mean Corpuscular Volume 86fL (79-100) 88fL (79-100) Mean Corpuscular Hemoglobin 29pg (25-35) 30pg (25-35) Mean Corpuscular Hemoglobin Concent 34g/dL (31-37) 34g/dL (31-37) Red Cell Distribution Width 14.5% (11.5-14.5) 14.7% (11.5-14.5) Platelet Count 284x10^3/uL (140-400) 194x10^3/uL (140-400) Neutrophils (%) (Auto) 90% (31-73) 81% (31-73) Lymphocytes (%) (Auto) 6% (24-48) 10% (24-48) Monocytes (%) (Auto) 5% (0-9) 7% (0-9) Eosinophils (%) (Auto) 0% (0-3) 1% (0-3) Basophils (%) (Auto) 0% (0-3) 1% (0-3) Neutrophils # (Auto) 16.6x10^3uL (1.8-7.7) 7.9x10^3uL (1.8-7.7) Lymphocytes # (Auto) 1.0x10^3/uL (1.0-4.8) 0.9x10^3/uL (1.0-4.8) Monocytes # (Auto) 0.8x10^3/uL (0.0-1.1) 0.7x10^3/uL (0.0-1.1) Eosinophils # (Auto) 0.0x10^3/uL (0.0-0.7) 0.1x10^3/uL (0.0-0.7) Basophils # (Auto) 0.1x10^3/uL (0.0-0.2) 0.1x10^3/uL (0.0-0.2) Prothrombin Time 15.0SEC (11.7-14.0) Prothromb Time International Ratio 1.3 (0.8-1.1) Sodium Level 140mmol/L (136-145) 139mmol/L (136-145) Potassium Level 4.5mmol/L (3.5-5.1) 3.7mmol/L (3.5-5.1) Chloride Level 105mmol/L (98-107) 105mmol/L (98-107) Carbon Dioxide Level 26mmol/L (21-32) 28mmol/L (21-32) Anion Gap 9 (6-14) 6 (6-14) Blood Urea Nitrogen 12mg/dL (7-20) 9mg/dL (7-20) Creatinine 0.7mg/dL (0.6-1.0) 0.8mg/dL (0.6-1.0) Estimated GFR (Cockcroft-Gault) 86.9 74.5 BUN/Creatinine Ratio 17 (6-20) Glucose Level 100mg/dL (70-99) 93mg/dL (70-99) Calcium Level 7.7mg/dL (8.5-10.1) 7.8mg/dL (8.5-10.1) Total Bilirubin 0.7mg/dL (0.2-1.0) Aspartate Amino Transf (AST/SGOT) 110U/L (15-37) Alanine Aminotransferase (ALT/SGPT) 63U/L (14-59) Alkaline Phosphatase 79U/L (46-116) Total Protein 5.6g/dL (6.4-8.2) Albumin 1.2g/dL (3.4-5.0) Albumin/Globulin Ratio 0.3 (1.0-1.7) Laboratory Tests Test 09/07/16 05:52 White Blood Count 9.7x10^3/uL (4.0-11.0) Red Blood Count 2.43x10^6/uL (3.50-5.40) Hemoglobin 7.3g/dL (12.0-15.5) Hematocrit 21.3% (36.0-47.0) Mean Corpuscular Volume 88fL (79-100) Mean Corpuscular Hemoglobin 30pg (25-35) Mean Corpuscular Hemoglobin Concent 34g/dL (31-37) Red Cell Distribution Width 14.7% (11.5-14.5) Platelet Count 194x10^3/uL (140-400) Neutrophils (%) (Auto) 81% (31-73) Lymphocytes (%) (Auto) 10% (24-48) Monocytes (%) (Auto) 7% (0-9) Eosinophils (%) (Auto) 1% (0-3) Basophils (%) (Auto) 1% (0-3) Neutrophils # (Auto) 7.9x10^3uL (1.8-7.7) Lymphocytes # (Auto) 0.9x10^3/uL (1.0-4.8) Monocytes # (Auto) 0.7x10^3/uL (0.0-1.1) Eosinophils # (Auto) 0.1x10^3/uL (0.0-0.7) Basophils # (Auto) 0.1x10^3/uL (0.0-0.2) Sodium Level 139mmol/L (136-145) Potassium Level 3.7mmol/L (3.5-5.1) Chloride Level 105mmol/L (98-107) Carbon Dioxide Level 28mmol/L (21-32) Anion Gap 6 (6-14) Blood Urea Nitrogen 9mg/dL (7-20) Creatinine 0.8mg/dL (0.6-1.0) Estimated GFR (Cockcroft-Gault) 74.5 Glucose Level 93mg/dL (70-99) Calcium Level 7.8mg/dL (8.5-10.1) Medications Active Scripts Medications Dose Route/Sig Days Date Category Zyprexa (Olanzapine) 2.5 Mg Tablet 1 Tab PO QHS 01/15/16 Reported Tizanidine Hcl 4 Mg Tablet 4 Mg PO TID PRN 01/14/16 Reported Tramadol Hcl 50 Mg Tablet 50 Mg PO BID PRN 01/14/16 Reported Lialda (Mesalamine) 1.2 Gm Tablet.dr 4 Tab PO DAILY 01/14/16 Reported Comments cxr reviewed, 09/07 tiny right PTX/ improved aeration Impression . 1. Acute hypoxic respiratory failure POA,, secondary to extensive multilobar community-acquired pneumonia/ multiloculated effusion, empyema. 2. Stage III empyema (fibrothorax). s/p de-cortication.Dense adhesions of the lung to the chest wall, extremely difficult to create a space. Owing to the patient's sepsis she was very coagulopathic and there was more bleeding than usual. Very friable lung, possible small parenchymal lung tear. 2. chronic obstructive pulmonary disease 3. severe leukocytosis POA. This is probably related to underlying extensive pneumonia and sepsis./ BM aspiration 08/29 , No leukemia 4. Severe protein-calorie malnutrition with an albumin level of 1.4. 5. Lactic acidosis present on admission on 08/21/2016 at [facility] related to sepsis from pneumonia. 6. Normal ejection fraction by echo with a pulmonary artery systolic pressure of 49. Suspect this is secondary to underlying chronic obstructive pulmonary disease. 7. smoker Plan . 1. Monitor daily cxr/ air leak is to be expected. Overall improved aeration. 2. follow pleural cultures/ cytology 3. cont chest tube to suction to -30. 4. Bronchodilators. 5. Deep venous thrombosis prophylaxis with scd 6. Stress ulcer prophylaxis. 7. repeat Hb today and transfuse if <8.0 8.. pain control HERBER PERALES MD Sep 07, 2016 11:21
[2016-09-07 12:03] LABS: BASO # 0.1 x10^3/uL (0.0-0.2); BASO % 1 % (0-3); EOS % 1 % (0-3); HEMATOCRIT 24.8 % (36.0-47.0); HEMOGLOBIN 8.5 g/dL (12.0-15.5); LYMPH # 0.8 x10^3/uL (1.0-4.8); LYMPH % 6 % (24-48); MEAN CORPUSCULAR HEMOGLOBIN 29 pg (25-35); MEAN CORPUSCULAR HGB CONC 34 g/dL (31-37); MEAN CORPUSCULAR VOLUME 86 fL (79-100); MONO % 5 % (0-9); NEUT % 88 % (31-73); PLATELET COUNT 246 x10^3/uL (140-400); RED BLOOD COUNT 2.89 x10^6/uL (3.50-5.40); RED CELL DISTRIBUTION WIDTH 14.9 % (11.5-14.5); WHITE BLOOD COUNT 12.9 x10^3/uL (4.0-11.0)
--- NOTE | 2016-09-07 14:04 | PATHOLOGY ---
PATHOLOGY REPORT * * * * * * * * FINAL DIAGNOSIS: Segments of inflammatory exudate and fibromembranous tissue, right pleural drainage empyema and pulmonary decortication: - Acute inflammatory exudate consistent with empyema. - Segments of pleura showing acute and chronic inflammation and reactive fibrosis. COMMENT: There is no evidence of malignancy. (JPM:; d/t: 09/07/16) REPORT ELECTRONICALLY SIGNED BY: Edi Reis M.D. DATE/TIME: 09/07/2016 14:04 * * * * * * * * GROSS PATHOLOGY: The specimen is received in formalin labeled "Miesha Gómez, right pleural empyema ". Received are multiple segments of white-bah to pink-bah hernandez soft tissue with adherent apparent exudate measuring 7.5 x 6.2 x 2.3 cm in aggregate dimensions. The specimen is submitted representatively in cassette A1. (CAA; 09/06/2016) INITIAL CPT CODE(S): 77846 Professional services performed [place] [address] Technical services performed by [facility] at [address] [place] [address]. Dr. Shelby [phone] SPECIMEN(S) RECEIVED: A.Right pleural empyema CLINICAL HISTORY: Empyema PATIENT: MIESHA GÓMEZ /AGE: 2 1960 (Age: 55) PATIENT #: [id number] ALT CASE #: SPECIMEN COLLECTION DATE: 09/05/2016 SPECIMEN RECEIVED DATE: 09/06/2016 [facility] - [address] [place] [address] - PHONE: [phone] * * * END OF REPORT * * *
[2016-09-07] MEDS: tiZANidine 4 MG TABLET. PO SCH (21:39)
[2016-09-07] MEDS: NIACIN ER 500 MG TABLET.ER PO SCH (21:39)
[2016-09-07] MEDS: OLANZAPINE 2.5 MG TABLET PO SCH (21:39)
[2016-09-08] MEDS: OXYCODONE IR 5 MG TABLET. PO PRN ×4 (00:51→17:16)
[2016-09-08] MEDS: FENTANYL PF 100 MCG/2 ML VIAL. IV PRN ×6 (02:38→22:29)
[2016-09-08 03:00] VITALS: BP 100/57
[2016-09-08 05:20] LABS: BASO # 0.1 x10^3/uL (0.0-0.2); BASO % 1 % (0-3); EOS % 2 % (0-3); HEMATOCRIT 21.1 % (36.0-47.0); HEMOGLOBIN 7.2 g/dL (12.0-15.5); LYMPH # 1.1 x10^3/uL (1.0-4.8); LYMPH % 13 % (24-48); MEAN CORPUSCULAR HEMOGLOBIN 30 pg (25-35); MEAN CORPUSCULAR HGB CONC 34 g/dL (31-37); MEAN CORPUSCULAR VOLUME 89 fL (79-100); MONO % 7 % (0-9); NEUT % 76 % (31-73); PLATELET COUNT 199 x10^3/uL (140-400); RED BLOOD COUNT 2.38 x10^6/uL (3.50-5.40); RED CELL DISTRIBUTION WIDTH 14.8 % (11.5-14.5); WHITE BLOOD COUNT 8.4 x10^3/uL (4.0-11.0)
[2016-09-08 05:45] LABS: ALBUMIN 1.3 g/dL (3.4-5.0); ALBUMIN/GLOBULIN RATIO 0.3 (1.0-1.7); CALCIUM 8.1 mg/dL (8.5-10.1); CREATININE 0.7 mg/dL (0.6-1.0); GFR 86.9; POTASSIUM 3.4 mmol/L (3.5-5.1); TOTAL BILIRUBIN 0.3 mg/dL (0.2-1.0)
[2016-09-08] MEDS: PIPERACILLIN/TAZOBACTAM 3.375 GM in IV NORMAL SALINE 50ML 50 ML IV SCH (06:00)
[2016-09-08] MEDS: MESALAMINE 1.2 GM TABLET.DR PO SCH (06:01)
[2016-09-08] MEDS: ALBUTEROL SULFATE 2.5 MG/3 ML NEBU. NEB SCH ×4 (07:28→19:12)
[2016-09-08 07:38] VITALS: BP 142/80
--- NOTE | 2016-09-08 07:53 | PDOC ---
Infectious Disease Note Subjective Subjective Doing ok this am but hurting. Didn't sleep well ROS ROS GEN: Denies fevers, chills, sweats HEENT: Denies blurred vision, sore throat CV: Denies chest pain RESP: Denies shortness of air, cough GI: Denies n/v/d NEURO: Denies confusion, dizziness MSK: Denies weakness, joint pain/swelling Vital Sign Vital Signs Vital Signs Date Time Temp Pulse Resp B/P Pulse Ox O2 Delivery O2 Flow Rate FiO2 09/08/16 07:38 98.2 107 16 142/80 100 Nasal Cannula 98.2 09/08/16 07:29 1.0 Physical Exam PHYSICAL EXAM GENERAL: Resting but awakened easily, NAD, Alert HEENT: PERRL, OC/OP -clear NECK: Supple, no JVD, no LN LUNGS: Clear. Chest tubes times 2 HEART: S1S2, no gallop, no murmur ABD: Soft, NT, no organomegaly, no rebound EXT: No edema, no cyanosis ARCHAEOLOGY PROFESSOR: Alert, oriented x 3, no focal neurologic deficit SKIN: No rash IV: RUE PICC - clean Labs Lab Laboratory Tests Test 09/07/16 11:40 09/08/16 04:45 White Blood Count 12.9x10^3/uL (4.0-11.0) 8.4x10^3/uL (4.0-11.0) Red Blood Count 2.89x10^6/uL (3.50-5.40) 2.38x10^6/uL (3.50-5.40) Hemoglobin 8.5g/dL (12.0-15.5) 7.2g/dL (12.0-15.5) Hematocrit 24.8% (36.0-47.0) 21.1% (36.0-47.0) Mean Corpuscular Volume 86fL (79-100) 89fL (79-100) Mean Corpuscular Hemoglobin 29pg (25-35) 30pg (25-35) Mean Corpuscular Hemoglobin Concent 34g/dL (31-37) 34g/dL (31-37) Red Cell Distribution Width 14.9% (11.5-14.5) 14.8% (11.5-14.5) Platelet Count 246x10^3/uL (140-400) 199x10^3/uL (140-400) Neutrophils (%) (Auto) 88% (31-73) 76% (31-73) Lymphocytes (%) (Auto) 6% (24-48) 13% (24-48) Monocytes (%) (Auto) 5% (0-9) 7% (0-9) Eosinophils (%) (Auto) 1% (0-3) 2% (0-3) Basophils (%) (Auto) 1% (0-3) 1% (0-3) Neutrophils # (Auto) 11.3x10^3uL (1.8-7.7) 6.4x10^3uL (1.8-7.7) Lymphocytes # (Auto) 0.8x10^3/uL (1.0-4.8) 1.1x10^3/uL (1.0-4.8) Monocytes # (Auto) 0.6x10^3/uL (0.0-1.1) 0.6x10^3/uL (0.0-1.1) Eosinophils # (Auto) 0.1x10^3/uL (0.0-0.7) 0.2x10^3/uL (0.0-0.7) Basophils # (Auto) 0.1x10^3/uL (0.0-0.2) 0.1x10^3/uL (0.0-0.2) Sodium Level 140mmol/L (136-145) Potassium Level 3.4mmol/L (3.5-5.1) Chloride Level 104mmol/L (98-107) Carbon Dioxide Level 28mmol/L (21-32) Anion Gap 8 (6-14) Blood Urea Nitrogen 6mg/dL (7-20) Creatinine 0.7mg/dL (0.6-1.0) Estimated GFR (Cockcroft-Gault) 86.9 BUN/Creatinine Ratio 9 (6-20) Glucose Level 83mg/dL (70-99) Calcium Level 8.1mg/dL (8.5-10.1) Total Bilirubin 0.3mg/dL (0.2-1.0) Aspartate Amino Transf (AST/SGOT) 29U/L (15-37) Alanine Aminotransferase (ALT/SGPT) 32U/L (14-59) Alkaline Phosphatase 65U/L (46-116) Total Protein 6.0g/dL (6.4-8.2) Albumin 1.3g/dL (3.4-5.0) Albumin/Globulin Ratio 0.3 (1.0-1.7) Objective Assessment S/p VATS/decortication 09/05 pH 6.9 Leukocytosis, better Diarrhea - chronic problem at home - better. C-diff neg S/p Bone marrow 08/29. Neg path - reactive marrow CAP Right empyema. s/p chest tube placement, 08/25 and 08/30 - pH 7.1. Cults neg Fever. better Sepsis with lactic acidosis Suspected COPD Hypoxia - better H/o C-diff Plan Plan of Care Discontinue Zyvox/Zosyn F/u response/labs NGHIA SONI MD Sep 08, 2016 07:53
--- NOTE | 2016-09-08 07:57 | RAD ---
Indication: Empyema and decortication. Time of exam 0553 hours. Comparison is made with prior chest from one day earlier. The heart size is stable. Right-sided chest tubes and right PICC line remain in place. Infiltrate throughout the right chest particular in the right lower lobe persists and may be more consolidated on today's exam. Pleural fluid or pleural thickening on the right is noted. There is trace right pneumothorax present, unchanged. Impression: Overall similar appearance to the chest when compared with one day earlier.
[2016-09-08] MEDS: LIPASE/PROTEAS/AMYLASE 5/17/27 CAPSULE.DR. PO SCH ×4 (08:27→17:07)
[2016-09-08] MEDS: LACTOBACILLUS ACIDOPH & BULGAR 1 TABLET. PO SCH ×4 (08:27→17:07)
[2016-09-08] MEDS: PANTOPRAZOLE 40 MG TABLET. PO SCH (08:29)
[2016-09-08] MEDS: ASCORBIC ACID 500 MG TABLET PO SCH (08:29)
[2016-09-08] MEDS: CETIRIZINE HCL 10 MG TABLET PO SCH (08:29)
[2016-09-08] MEDS: CHOLECALCIFEROL (VITAMIN D3) 1,000 UNIT TABLET PO SCH (08:29)
--- NOTE | 2016-09-08 10:01 | PDOC ---
Provider Note Provider Note DATE OF f/u: 09/08/2016 c/c: Leukocytosis with 1% blasts in a patient with pneumonia. HISTORY OF PRESENT ILLNESS: The patient is a 55-year-old female who presented to [facility] Emergency Room 08/21/2016 with complaints of worsening cough and pleuritic chest pain and dyspnea of one week duration. In the Emergency Room, she was noted to have tachycardia and elevated WBC count of 57,000 and lactic acid of 4.1. She was diagnosed with sepsis. She underwent a chest x-ray that revealed right lower lobe pneumonia with small pneumonic effusion. She underwent CT scan of the abdomen on 08/21/2016 that revealed right lower lobe pneumonia. She underwent a CT scan of the chest on 08/22/2016 that revealed multilobar pneumonia, small to moderate multiloculated right pleural effusion, which might indicate a parapneumonic effusion versus empyema. There is also evidence of mild emphysema. She was started on antibiotics, however, she has progressive dyspnea and hypoxia and hence she was transferred to [facility]. Infectious Disease and pulmonary consultation was obtained, she was started on antibiotics. She underwent right chest tube insertion on 08/25/2016, 130 mL of whitish cloudy right pleural fluid was sent to the lab for evaluation. Her WBC count on 08/26/2016 was 32.2 and on 08/27/2016, it was 54.0. In addition, there was evidence of 23% bands, 5% metamyelocytes, 8%, myelocytes, 1% blasts and hence I was asked to see the patient for further evaluation of leukocytosis. Her hemoglobin was 11.9 with a platelet count of 536. PAST MEDICAL HISTORY: COPD. REVIEW OF SYSTEMS: no n/v, has rt sided CP PHYSICAL EXAMINATION: GENERAL APPEARANCE: The patient is a 55-year-old female who is in no acute cardiorespiratory distress. CHEST: Bilaterally symmetrical, decreased air entry on the right side. HEART: S1, S2 normal. ABDOMEN: Soft, nontender. No hepatosplenomegaly. CENTRAL NERVOUS SYSTEM: No focal neurological deficits. LABORATORY DATA: On 08/27/2016, WBC 54, hemoglobin 11.9, MCV 83, platelet count 536, bands 23%, metamyelocytes 5%, myelocytes 8% and peripheral smear on 08/26/2016 revealed presence of blasts at 1%. IMPRESSION AND PLAN: 1. Severe leukocytosis with a WBC count of 54,000 on 08/27/2016 and hemoglobin of 11.9, platelet count 536,000. There was evidence of elevated bands at 23%, elevated metamyelocytes of 5%, myelocytes of 8%, and 1% blasts. With the presence of sepsis, pneumonia and empyema, this is most likely reactive process. However, in view of worsening myelocytes and the presence of blasts, I would pursue with the bone marrow aspiration and biopsy to make sure that she does not have a primary bone marrow disorder. WBC now normal at 8.4, monitor cbc S/p bone marrow bx 08/29/16. I d/w pathologist, no increased blasts to suggest leukemia, final results: The findings appear to be most compatible with a reactive neutrophilic leukocytosis and thrombocytosis. 2. Pneumonia. Continue antibiotics. Appreciate ID consultation. 3. Empyema. Status post right thoracentesis and chest tube placement. s/p Right VATS, drainage of empyema and pulmonary decortication 09/05/16 4. Sepsis with lactic acidosis. 5. Fever, improving. 6. Chronic obstructive pulmonary disease. SARAVANAN RAMIREZ MD Sep 08, 2016 10:01
[2016-09-08 11:01] VITALS: BP 159/83
--- NOTE | 2016-09-08 11:28 | PDOC ---
PULMONARY PROGRESS NOTES Subjective feels better, s/p right de-cortication with extensive pleural peel removed air leak on one chest tube Vitals Vital Signs Date Time Temp Pulse Resp B/P Pulse Ox O2 Delivery O2 Flow Rate FiO2 09/08/16 11:20 99 Nasal Cannula 1.0 09/08/16 11:01 98.1 111 20 159/83 98.1 Comments ros as above, other sys otherwise neg General: Alert, No acute distress HEENT: Other (nc at perrl, throat nose clear) Lungs: Other (decrease bs) Cardiovascular: S1, S2 Abdomen: Soft, Non-tender, Other (no mass) Neuro Exam: Alert, Oriented, No Focal Findings Extremities: No Edema Skin: Warm Labs Laboratory Tests Test 09/07/16 05:52 09/07/16 11:40 09/08/16 04:45 White Blood Count 9.7x10^3/uL (4.0-11.0) 12.9x10^3/uL (4.0-11.0) 8.4x10^3/uL (4.0-11.0) Red Blood Count 2.43x10^6/uL (3.50-5.40) 2.89x10^6/uL (3.50-5.40) 2.38x10^6/uL (3.50-5.40) Hemoglobin 7.3g/dL (12.0-15.5) 8.5g/dL (12.0-15.5) 7.2g/dL (12.0-15.5) Hematocrit 21.3% (36.0-47.0) 24.8% (36.0-47.0) 21.1% (36.0-47.0) Mean Corpuscular Volume 88fL (79-100) 86fL (79-100) 89fL (79-100) Mean Corpuscular Hemoglobin 30pg (25-35) 29pg (25-35) 30pg (25-35) Mean Corpuscular Hemoglobin Concent 34g/dL (31-37) 34g/dL (31-37) 34g/dL (31-37) Red Cell Distribution Width 14.7% (11.5-14.5) 14.9% (11.5-14.5) 14.8% (11.5-14.5) Platelet Count 194x10^3/uL (140-400) 246x10^3/uL (140-400) 199x10^3/uL (140-400) Neutrophils (%) (Auto) 81% (31-73) 88% (31-73) 76% (31-73) Lymphocytes (%) (Auto) 10% (24-48) 6% (24-48) 13% (24-48) Monocytes (%) (Auto) 7% (0-9) 5% (0-9) 7% (0-9) Eosinophils (%) (Auto) 1% (0-3) 1% (0-3) 2% (0-3) Basophils (%) (Auto) 1% (0-3) 1% (0-3) 1% (0-3) Neutrophils # (Auto) 7.9x10^3uL (1.8-7.7) 11.3x10^3uL (1.8-7.7) 6.4x10^3uL (1.8-7.7) Lymphocytes # (Auto) 0.9x10^3/uL (1.0-4.8) 0.8x10^3/uL (1.0-4.8) 1.1x10^3/uL (1.0-4.8) Monocytes # (Auto) 0.7x10^3/uL (0.0-1.1) 0.6x10^3/uL (0.0-1.1) 0.6x10^3/uL (0.0-1.1) Eosinophils # (Auto) 0.1x10^3/uL (0.0-0.7) 0.1x10^3/uL (0.0-0.7) 0.2x10^3/uL (0.0-0.7) Basophils # (Auto) 0.1x10^3/uL (0.0-0.2) 0.1x10^3/uL (0.0-0.2) 0.1x10^3/uL (0.0-0.2) Sodium Level 139mmol/L (136-145) 140mmol/L (136-145) Potassium Level 3.7mmol/L (3.5-5.1) 3.4mmol/L (3.5-5.1) Chloride Level 105mmol/L (98-107) 104mmol/L (98-107) Carbon Dioxide Level 28mmol/L (21-32) 28mmol/L (21-32) Anion Gap 6 (6-14) 8 (6-14) Blood Urea Nitrogen 9mg/dL (7-20) 6mg/dL (7-20) Creatinine 0.8mg/dL (0.6-1.0) 0.7mg/dL (0.6-1.0) Estimated GFR (Cockcroft-Gault) 74.5 86.9 Glucose Level 93mg/dL (70-99) 83mg/dL (70-99) Calcium Level 7.8mg/dL (8.5-10.1) 8.1mg/dL (8.5-10.1) BUN/Creatinine Ratio 9 (6-20) Total Bilirubin 0.3mg/dL (0.2-1.0) Aspartate Amino Transf (AST/SGOT) 29U/L (15-37) Alanine Aminotransferase (ALT/SGPT) 32U/L (14-59) Alkaline Phosphatase 65U/L (46-116) Total Protein 6.0g/dL (6.4-8.2) Albumin 1.3g/dL (3.4-5.0) Albumin/Globulin Ratio 0.3 (1.0-1.7) Laboratory Tests Test 09/07/16 11:40 09/08/16 04:45 White Blood Count 12.9x10^3/uL (4.0-11.0) 8.4x10^3/uL (4.0-11.0) Red Blood Count 2.89x10^6/uL (3.50-5.40) 2.38x10^6/uL (3.50-5.40) Hemoglobin 8.5g/dL (12.0-15.5) 7.2g/dL (12.0-15.5) Hematocrit 24.8% (36.0-47.0) 21.1% (36.0-47.0) Mean Corpuscular Volume 86fL (79-100) 89fL (79-100) Mean Corpuscular Hemoglobin 29pg (25-35) 30pg (25-35) Mean Corpuscular Hemoglobin Concent 34g/dL (31-37) 34g/dL (31-37) Red Cell Distribution Width 14.9% (11.5-14.5) 14.8% (11.5-14.5) Platelet Count 246x10^3/uL (140-400) 199x10^3/uL (140-400) Neutrophils (%) (Auto) 88% (31-73) 76% (31-73) Lymphocytes (%) (Auto) 6% (24-48) 13% (24-48) Monocytes (%) (Auto) 5% (0-9) 7% (0-9) Eosinophils (%) (Auto) 1% (0-3) 2% (0-3) Basophils (%) (Auto) 1% (0-3) 1% (0-3) Neutrophils # (Auto) 11.3x10^3uL (1.8-7.7) 6.4x10^3uL (1.8-7.7) Lymphocytes # (Auto) 0.8x10^3/uL (1.0-4.8) 1.1x10^3/uL (1.0-4.8) Monocytes # (Auto) 0.6x10^3/uL (0.0-1.1) 0.6x10^3/uL (0.0-1.1) Eosinophils # (Auto) 0.1x10^3/uL (0.0-0.7) 0.2x10^3/uL (0.0-0.7) Basophils # (Auto) 0.1x10^3/uL (0.0-0.2) 0.1x10^3/uL (0.0-0.2) Sodium Level 140mmol/L (136-145) Potassium Level 3.4mmol/L (3.5-5.1) Chloride Level 104mmol/L (98-107) Carbon Dioxide Level 28mmol/L (21-32) Anion Gap 8 (6-14) Blood Urea Nitrogen 6mg/dL (7-20) Creatinine 0.7mg/dL (0.6-1.0) Estimated GFR (Cockcroft-Gault) 86.9 BUN/Creatinine Ratio 9 (6-20) Glucose Level 83mg/dL (70-99) Calcium Level 8.1mg/dL (8.5-10.1) Total Bilirubin 0.3mg/dL (0.2-1.0) Aspartate Amino Transf (AST/SGOT) 29U/L (15-37) Alanine Aminotransferase (ALT/SGPT) 32U/L (14-59) Alkaline Phosphatase 65U/L (46-116) Total Protein 6.0g/dL (6.4-8.2) Albumin 1.3g/dL (3.4-5.0) Albumin/Globulin Ratio 0.3 (1.0-1.7) Medications Active Scripts Medications Dose Route/Sig Days Date Category Zyprexa (Olanzapine) 2.5 Mg Tablet 1 Tab PO QHS 01/15/16 Reported Tizanidine Hcl 4 Mg Tablet 4 Mg PO TID PRN 01/14/16 Reported Tramadol Hcl 50 Mg Tablet 50 Mg PO BID PRN 01/14/16 Reported Lialda (Mesalamine) 1.2 Gm Tablet.dr 4 Tab PO DAILY 01/14/16 Reported Comments cxr reviewed, 09/08 tiny right PTX/ increase volume loss RLL Impression . 1. Acute hypoxic respiratory failure POA,, secondary to extensive multilobar community-acquired pneumonia/ multiloculated effusion, empyema. 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Dense adhesions of the lung to the chest wall, extremely difficult to create a space. Owing to the patient's sepsis she was very coagulopathic and there was more bleeding than usual. Very friable lung, possible small parenchymal lung tear. 2. chronic obstructive pulmonary disease 3. severe leukocytosis POA. This is probably related to underlying extensive pneumonia and sepsis./ BM aspiration 08/29 , No leukemia 4. Severe protein-calorie malnutrition with an albumin level of 1.4. 5. Normal ejection fraction by echo with a pulmonary artery systolic pressure of 49. Suspect this is secondary to underlying chronic obstructive pulmonary disease. 7. smoker 8. Anemia Plan . 1. Monitor daily cxr/ air leak is to be expected. Overall improved aeration and resolved air leak on one chest tube 2. follow pleural cultures/ cytology 3. cont chest tube to suction to -30. 4. Bronchodilators. 5. Deep venous thrombosis prophylaxis with scd 6. Stress ulcer prophylaxis. 7. Transfusion per CV[facility] 8.. pain control / IS HERBER PERALES MD Sep 08, 2016 11:28
[2016-09-08] MEDS: MORPHINE ER 15 MG TABLET.ER PO SCH ×2 (11:55→20:54)
[2016-09-08] MEDS: SUMATRIPTAN SUCCINATE 100 MG TABLET. PO PRN ×2 (11:57→22:28)
--- NOTE | 2016-09-08 14:29 | PDOC ---
Progress Note Subjective Subjective Doing well. On 1 L nasal cannula. Normotensive and in sinus rhythm. Small air leak in one out of two chest tubes. ROS ROS No nausea No vomiting No pain No rash Vital Sign Vital Signs Vital Signs Date Time Temp Pulse Resp B/P Pulse Ox O2 Delivery O2 Flow Rate FiO2 09/08/16 13:03 18 Nasal Cannula 1.0 09/08/16 11:56 99 09/08/16 11:01 98.1 111 159/83 98.1 Physical Exam PHYSICAL EXAM GENERAL: NAD, Alert HEENT: PERRL, OC/OP NECK: Supple, no JVD, no LN LUNGS: Clear HEART: S1S2, no gallop, no murmur ABD: Soft, NT, no organomegaly, no rebound EXT: No edema, no cyanosis [employer]IV[employer] SPECIALIST: Alert, oriented x 3, no focal neurologic deficit SKIN: No rash IV: ok Labs Lab Laboratory Tests Test 09/08/16 04:45 White Blood Count 8.4x10^3/uL (4.0-11.0) Red Blood Count 2.38x10^6/uL (3.50-5.40) Hemoglobin 7.2g/dL (12.0-15.5) Hematocrit 21.1% (36.0-47.0) Mean Corpuscular Volume 89fL (79-100) Mean Corpuscular Hemoglobin 30pg (25-35) Mean Corpuscular Hemoglobin Concent 34g/dL (31-37) Red Cell Distribution Width 14.8% (11.5-14.5) Platelet Count 199x10^3/uL (140-400) Neutrophils (%) (Auto) 76% (31-73) Lymphocytes (%) (Auto) 13% (24-48) Monocytes (%) (Auto) 7% (0-9) Eosinophils (%) (Auto) 2% (0-3) Basophils (%) (Auto) 1% (0-3) Neutrophils # (Auto) 6.4x10^3uL (1.8-7.7) Lymphocytes # (Auto) 1.1x10^3/uL (1.0-4.8) Monocytes # (Auto) 0.6x10^3/uL (0.0-1.1) Eosinophils # (Auto) 0.2x10^3/uL (0.0-0.7) Basophils # (Auto) 0.1x10^3/uL (0.0-0.2) Sodium Level 140mmol/L (136-145) Potassium Level 3.4mmol/L (3.5-5.1) Chloride Level 104mmol/L (98-107) Carbon Dioxide Level 28mmol/L (21-32) Anion Gap 8 (6-14) Blood Urea Nitrogen 6mg/dL (7-20) Creatinine 0.7mg/dL (0.6-1.0) Estimated GFR (Cockcroft-Gault) 86.9 BUN/Creatinine Ratio 9 (6-20) Glucose Level 83mg/dL (70-99) Calcium Level 8.1mg/dL (8.5-10.1) Total Bilirubin 0.3mg/dL (0.2-1.0) Aspartate Amino Transf (AST/SGOT) 29U/L (15-37) Alanine Aminotransferase (ALT/SGPT) 32U/L (14-59) Alkaline Phosphatase 65U/L (46-116) Total Protein 6.0g/dL (6.4-8.2) Albumin 1.3g/dL (3.4-5.0) Albumin/Globulin Ratio 0.3 (1.0-1.7) Objective Assessment POD#3 s/p R VATS, drainage of empyema and pulmonary decortication. Doing very well. On room air. Minimal drain output with small air leak. Normotensive and in sinus rhythm. Plan Plan of Care Chest tubes to water seal If chest x-ray unchanged on waterseal, will remove today chest tube without air leak The pH of pleural fluid was 6.9, thus confirming empyema. I would recommend continuing po antibiotics for an additional 1-2 weeks YOVANI WHALEY MD Sep 08, 2016 14:29
--- NOTE | 2016-09-08 15:07 | RAD ---
Portable chest, 09/08/2016, 2:38 PM: History: Follow-up pulmonary decortication sensation and pneumothorax Comparison is made to the study of earlier the same day. A right PICC extends into the superior vena cava. The two right chest tubes are unchanged in positions. There is a small right pneumothorax which has increased in size since earlier in the day. There are patchy infiltrates in the right lung as well as diffuse pleural thickening on the right. These findings are unchanged. There is minimal linear atelectasis or scarring in the left base. No left-sided pleural fluid is evident. The heart size is normal. IMPRESSION: 1. The small right pneumothorax has increased in size since earlier in the day. 2. No other significant interval change.
[2016-09-08 15:40] VITALS: BP 165/97
[2016-09-08] MEDS: CEFPODOXIME PROXETIL 100 MG TABLET PO SCH ×2 (15:44→20:54)
[2016-09-08 19:24] VITALS: BP 137/79
[2016-09-08] MEDS: tiZANidine 4 MG TABLET. PO SCH (20:54)
[2016-09-08] MEDS: OLANZAPINE 2.5 MG TABLET PO SCH (20:54)
[2016-09-08] MEDS: NIACIN ER 500 MG TABLET.ER PO SCH (20:54)
[2016-09-08] MEDS ORDERED: ENOXAPARIN 30 MG/0.3 ML DISP.SYRIN. SQ SCH (21:00)
[2016-09-08 23:05] VITALS: BP 104/65
[2016-09-09] MEDS: FENTANYL PF 100 MCG/2 ML VIAL. IV PRN ×5 (01:29→19:28)
[2016-09-09] MEDS: OXYCODONE IR 5 MG TABLET. PO PRN ×5 (01:39→21:05)
[2016-09-09 03:08] VITALS: BP 102/61
[2016-09-09] MEDS: MESALAMINE 1.2 GM TABLET.DR PO SCH (05:46)
[2016-09-09 07:00] VITALS: BP 164/84
--- NOTE | 2016-09-09 07:19 | RAD ---
Indication: Empyema and decortication. Time of exam 0620 hours. Correlation is made with prior chest 1 day earlier. Right-sided chest tubes remain in place. Infiltrate right mid and lower lung field persists. A small right-sided pneumothorax is unchanged. Left lung remains clear. The heart size is stable. Impression: Overall stable appearance to the chest since exam one day earlier.
[2016-09-09] MEDS: ALBUTEROL SULFATE 2.5 MG/3 ML NEBU. NEB SCH ×4 (07:35→19:54)
[2016-09-09] MEDS: PANTOPRAZOLE 40 MG TABLET. PO SCH (07:58)
[2016-09-09] MEDS: LACTOBACILLUS ACIDOPH & BULGAR 1 TABLET. PO SCH ×3 (07:58→17:36)
[2016-09-09] MEDS: SUMATRIPTAN SUCCINATE 100 MG TABLET. PO PRN ×2 (07:58→12:49)
--- NOTE | 2016-09-09 08:05 | PDOC ---
Infectious Disease Note Subjective Subjective Doing ok but has COLLINS this am ROS ROS GEN: Denies fevers, chills, sweats HEENT: Denies blurred vision, sore throat CV: Denies chest pain RESP: Denies shortness of air, cough GI: Denies n/v/d NEURO: Denies confusion, dizziness MSK: Denies weakness, joint pain/swelling Vital Sign Vital Signs Vital Signs Date Time Temp Pulse Resp B/P Pulse Ox O2 Delivery O2 Flow Rate FiO2 09/09/16 07:35 100 Nasal Cannula 2.0 09/09/16 06:48 18 09/09/16 03:08 97.4 93 102/61 97.4 Physical Exam PHYSICAL EXAM GENERAL: NAD, Alert, coop HEENT: PERRL, OC/OP -clear NECK: Supple, no JVD, no LN LUNGS: Clear. Chest tubes times 2 HEART: S1S2, no gallop, no murmur ABD: Soft, NT, no organomegaly, no rebound EXT: No edema, no cyanosis OCCUP THER: Alert, oriented x 3, no focal neurologic deficit SKIN: No rash IV: RUE PICC - clean Objective Assessment S/p VATS/decortication 09/05 pH 6.9 Leukocytosis, better Diarrhea - chronic problem at home - better. C-diff neg S/p Bone marrow 08/29. Neg path - reactive marrow CAP Right empyema. s/p chest tube placement, 08/25 and 08/30 - pH 7.1. Cults neg Fever. better Sepsis with lactic acidosis Suspected COPD Hypoxia - better H/o C-diff Plan Plan of Care Amor romero pulm. Doing well. ID to sign off NGHIA SONI MD Sep 09, 2016 08:05
[2016-09-09] MEDS: CEFPODOXIME PROXETIL 100 MG TABLET PO SCH ×2 (08:45→20:58)
[2016-09-09] MEDS: CHOLECALCIFEROL (VITAMIN D3) 1,000 UNIT TABLET PO SCH (08:46)
[2016-09-09] MEDS: ASCORBIC ACID 500 MG TABLET PO SCH (08:46)
[2016-09-09] MEDS: CETIRIZINE HCL 10 MG TABLET PO SCH (08:46)
[2016-09-09] MEDS: MORPHINE ER 15 MG TABLET.ER PO SCH (08:46)
--- NOTE | 2016-09-09 09:00 | PDOC ---
Provider Note Provider Note DATE OF f/u: 09/09/2016 c/c: f/u of Leukocytosis in a patient with pneumonia. HISTORY OF PRESENT ILLNESS: The patient is a 55-year-old female who presented to [facility] Emergency Room 08/21/2016 with complaints of worsening cough and pleuritic chest pain and dyspnea of one week duration. In the Emergency Room, she was noted to have tachycardia and elevated WBC count of 57,000 and lactic acid of 4.1. She was diagnosed with sepsis. She underwent a chest x-ray that revealed right lower lobe pneumonia with small pneumonic effusion. She underwent CT scan of the abdomen on 08/21/2016 that revealed right lower lobe pneumonia. She underwent a CT scan of the chest on 08/22/2016 that revealed multilobar pneumonia, small to moderate multiloculated right pleural effusion, which might indicate a parapneumonic effusion versus empyema. There is also evidence of mild emphysema. She was started on antibiotics, however, she has progressive dyspnea and hypoxia and hence she was transferred to [facility]. Infectious Disease and pulmonary consultation was obtained, she was started on antibiotics. She underwent right chest tube insertion on 08/25/2016, 130 mL of whitish cloudy right pleural fluid was sent to the lab for evaluation. Her WBC count on 08/26/2016 was 32.2 and on 08/27/2016, it was 54.0. In addition, there was evidence of 23% bands, 5% metamyelocytes, 8%, myelocytes, 1% blasts and hence I was asked to see the patient for further evaluation of leukocytosis. Her hemoglobin was 11.9 with a platelet count of 536. PAST MEDICAL HISTORY: COPD. REVIEW OF SYSTEMS: no n/v, has rt sided CP, stable PHYSICAL EXAMINATION: GENERAL APPEARANCE: The patient is a 55-year-old female who is in no acute cardiorespiratory distress. CHEST: Bilaterally symmetrical, decreased air entry on the right side. HEART: S1, S2 normal. ABDOMEN: Soft, nontender. No hepatosplenomegaly. CENTRAL NERVOUS SYSTEM: No focal neurological deficits. LABORATORY DATA: On 08/27/2016, WBC 54, hemoglobin 11.9, MCV 83, platelet count 536, bands 23%, metamyelocytes 5%, myelocytes 8% and peripheral smear on 08/26/2016 revealed presence of blasts at 1%. IMPRESSION AND PLAN: 1. Severe leukocytosis with a WBC count of 54,000 on 08/27/2016 and hemoglobin of 11.9, platelet count 536,000. There was evidence of elevated bands at 23%, elevated metamyelocytes of 5%, myelocytes of 8%, and 1% blasts. With the presence of sepsis, pneumonia and empyema, this is most likely reactive process. However, in view of worsening myelocytes and the presence of blasts, I would pursue with the bone marrow aspiration and biopsy to make sure that she does not have a primary bone marrow disorder. WBC now normal at 8.4 on 09/08/16, monitor cbc S/p bone marrow bx 08/29/16. I d/w pathologist, no increased blasts to suggest leukemia, final results: The findings appear to be most compatible with a reactive neutrophilic leukocytosis and thrombocytosis. 2. Pneumonia. Continue antibiotics. Appreciate ID consultation. 3. Empyema. Status post right thoracentesis and chest tube placement. s/p Right VATS, drainage of empyema and pulmonary decortication 09/05/16 4. Sepsis with lactic acidosis. 5. Chronic obstructive pulmonary disease. SARAVANAN RAMIREZ MD Sep 09, 2016 09:00
[2016-09-09] MEDS: LIPASE/PROTEAS/AMYLASE 5/17/27 CAPSULE.DR. PO SCH ×3 (09:40→17:36)
--- NOTE | 2016-09-09 10:42 | PDOC ---
PROGRESS NOTES Chief Complaint Chief Complaint LATE entry, pt seen 09/08 Acute hypoxic respiratory failure 1. PNA: multilobar. w/ empyema 2. Empyema: s/p VATS, w/ chest tubes draining 3. COPD exacerbation: improving 4. Sepsis: better 5. HTN, tachycardia: vitals improved 6. BP at low normal, prob influenced by IV narcotics. IVF boluses PRN 7. Ulcerative Colitis: on mesalamine, pancreatic enzymes, macrobiotics 8. Depression: on zyprexa 9. Smoker: nicotine patch 10. Migraine: imitrex PRN 11. chest pain: musculoskeletal from chest tubes fentanyl, Oxy PO PRN History of Present Illness History of Present Illness pain persists, would like additional dose doyle out pain 05/23 after walking doing better s/p VATS, drainage of empyema and pulmonary decortication. chest tubes in place. Vitals Vitals Vital Signs Date Time Temp Pulse Resp B/P Pulse Ox O2 Delivery O2 Flow Rate FiO2 09/09/16 08:46 18 95 Room Air 09/09/16 07:35 2.0 09/09/16 07:00 97.9 115 164/84 97.9 Physical Exam Physical Exam GENERAL: NAD, Alert HEENT: PERRL, OC/OP NECK: Supple, no JVD, no LN LUNGS: Clear HEART: S1S2, no gallop, no murmur ABD: Soft, NT, no organomegaly, no rebound EXT: No edema, no cyanosis PROSTHODONTIST/OWNER: Alert, oriented x 3, no focal neurologic deficit SKIN: No rash IV: ok General: Alert, Oriented X3, No acute distress Heart: Normal S1, Normal S2, No murmurs, Other Lungs: Other (decrease bs) Abdomen: Soft, No tenderness Extremities: No edema Skin: Other Assessment and Plan Assessmemt and Plan pain control chest tube mngment per pulm, ct surg Problems Medical Problems: (1) CAP (community acquired pneumonia) Status: Acute (2) Empyema of lung Status: Acute Problems: Comment Review of Relevant I have reviewed the following items randi (where applicable) has been applied. Labs Laboratory Tests Test 09/07/16 11:40 09/08/16 04:45 White Blood Count 12.9x10^3/uL (4.0-11.0) 8.4x10^3/uL (4.0-11.0) Red Blood Count 2.89x10^6/uL (3.50-5.40) 2.38x10^6/uL (3.50-5.40) Hemoglobin 8.5g/dL (12.0-15.5) 7.2g/dL (12.0-15.5) Hematocrit 24.8% (36.0-47.0) 21.1% (36.0-47.0) Mean Corpuscular Volume 86fL (79-100) 89fL (79-100) Mean Corpuscular Hemoglobin 29pg (25-35) 30pg (25-35) Mean Corpuscular Hemoglobin Concent 34g/dL (31-37) 34g/dL (31-37) Red Cell Distribution Width 14.9% (11.5-14.5) 14.8% (11.5-14.5) Platelet Count 246x10^3/uL (140-400) 199x10^3/uL (140-400) Neutrophils (%) (Auto) 88% (31-73) 76% (31-73) Lymphocytes (%) (Auto) 6% (24-48) 13% (24-48) Monocytes (%) (Auto) 5% (0-9) 7% (0-9) Eosinophils (%) (Auto) 1% (0-3) 2% (0-3) Basophils (%) (Auto) 1% (0-3) 1% (0-3) Neutrophils # (Auto) 11.3x10^3uL (1.8-7.7) 6.4x10^3uL (1.8-7.7) Lymphocytes # (Auto) 0.8x10^3/uL (1.0-4.8) 1.1x10^3/uL (1.0-4.8) Monocytes # (Auto) 0.6x10^3/uL (0.0-1.1) 0.6x10^3/uL (0.0-1.1) Eosinophils # (Auto) 0.1x10^3/uL (0.0-0.7) 0.2x10^3/uL (0.0-0.7) Basophils # (Auto) 0.1x10^3/uL (0.0-0.2) 0.1x10^3/uL (0.0-0.2) Sodium Level 140mmol/L (136-145) Potassium Level 3.4mmol/L (3.5-5.1) Chloride Level 104mmol/L (98-107) Carbon Dioxide Level 28mmol/L (21-32) Anion Gap 8 (6-14) Blood Urea Nitrogen 6mg/dL (7-20) Creatinine 0.7mg/dL (0.6-1.0) Estimated GFR (Cockcroft-Gault) 86.9 BUN/Creatinine Ratio 9 (6-20) Glucose Level 83mg/dL (70-99) Calcium Level 8.1mg/dL (8.5-10.1) Total Bilirubin 0.3mg/dL (0.2-1.0) Aspartate Amino Transf (AST/SGOT) 29U/L (15-37) Alanine Aminotransferase (ALT/SGPT) 32U/L (14-59) Alkaline Phosphatase 65U/L (46-116) Total Protein 6.0g/dL (6.4-8.2) Albumin 1.3g/dL (3.4-5.0) Albumin/Globulin Ratio 0.3 (1.0-1.7) Microbiology 09/05/16 Anaerobic/Aerobic Culture - Preliminary, Resulted 09/05/16 Anaerobic Culture Result 1 (BRUCE) - Preliminary, Resulted 09/05/16 Aerobic Culture - Preliminary, Resulted 09/05/16 Aerobic Culture Result 1 (BRUCE) - Preliminary, Resulted 09/05/16 Anaerobic/Aerobic Culture - Preliminary, Resulted 09/05/16 Anaerobic Culture Result 1 (BRUCE) - Preliminary, Resulted 09/05/16 Aerobic Culture - Preliminary, Resulted 09/05/16 Aerobic Culture Result 1 (BRUCE) - Preliminary, Resulted Medications Current Medications Acetaminophen (Tylenol) 325 mg PRN Q6HRS PRN PO MILD PAIN / TEMP Last administered on 08/26/16 08:29; Start 08/25/16 at 12:45 Acetaminophen/ Hydrocodone Bitart (Lortab 5/325) 1 tab PRN Q6HRS PRN PO MODERATE PAIN Last administered on 08/27/16 02:06; Start 08/25/16 at 12:45; Stop 08/29/16 at 16:41; Status DC Hydralazine HCl (Apresoline) 10 mg PRN Q4HRS PRN IVP ELEVATED BP, SEE COMMENTS Last administered on 08/26/16 05:07; Start 08/25/16 at 12:45 Ondansetron HCl (Zofran) 4 mg PRN Q8HRS PRN IV NAUSEA/VOMITING Last administered on 08/25/16 15:42; Start 08/25/16 at 12:45; Stop 08/27/16 at 08:44 ; Status DC Albuterol Sulfate 2.5 mg 2.5 mg PRN Q4HRS PRN NEB SHORTNESS OF BREATH; Start at 12:45 Piperacillin Sod/ Tazobactam Sod 3.375 gm/Sodium Chloride 50 ml @ 100 mls/hr Q6HRS IV Last administered on 09/08/16 06:00; Start 08/25/16 at 13:00; Stop at 07:53; Status DC Linezolid (Zyvox Premix) 300 ml @ 300 mls/hr Q12HR IV Last administered on 21:39; Start 08/25/16 at 14:00; Stop 09/08/16 at 07:52; Status DC Piperacillin Sod/ Tazobactam Sod 1 each 1 each PRN DAILY PRN MC SEE COMMENTS; Start 08/25/16 at 13:45; Stop 08/27/16 at 12:41; Status DC Levofloxacin/ Dextrose (LEVAQUIN 750mg PREMIX) 150 ml @ 100 mls/hr Q24H IV Last administered on 08/28/16 13:51; Start 08/25/16 at 14:00; Stop 08/28/16 at 14:37; Status DC Lidocaine/Sodium Bicarbonate (Buffered Lidocaine 1%) 20 ml STK-MED ONCE IJ ; Start 08/25/16 at 14:00; Stop 08/25/16 at 14:01; Status DC Lidocaine/Sodium Bicarbonate (Buffered Lidocaine 1%) 5 ml 1X ONCE IJ Last administered on 08/25/16 14:59; Start 08/25/16 at 15:00; Stop 08/25/16 at 15:01 ; Status DC Info (Do NOT chart on this placeholder) 1 each 1X ONCE MC ; Start 08/25/16 at 17:00; Stop 08/25/16 at 17:01; Status UNV Pneumococcal Polyvalent Vaccine (Do NOT chart on this placeholder) 1 each 1X ONCE MC ; Start 08/25/16 at 17:00; Stop 08/25/16 at 17:01; Status UNV Influenza Virus Vaccine Quadrival (Fluarix Quad [id number] Syringe) 0.5 ml ONCE ONCE VAX IM ; Start 08/26/16 at 09:00; Stop 08/26/16 at 09:01; Status DC Pneumococcal Polyvalent Vaccine (Pneumovax 23) 0.5 ml ONCE ONCE VAX IM ; Start 08/26/16 at 09:00; Stop 08/26/16 at 09:01; Status DC Enoxaparin Sodium (Lovenox 40mg Syringe) 40 mg Q24H SQ Last administered on 08:19; Start 08/26/16 at 09:00; Stop 08/29/16 at 11:45; Status DC Fentanyl Citrate (Fentanyl 2ml Vial) 25 mcg PRN Q4HRS PRN IV PAIN Last administered on 08/27/16 06:13; Start 08/26/16 at 08:30; Stop 08/29/16 at 15:07 ; Status DC Potassium Chloride (Klor-Con) 40 meq 1X ONCE PO Last administered on 11:24; Start 08/26/16 at 10:45; Stop 08/26/16 at 10:49; Status DC Mesalamine (Lialda) 4.8 gm DAILY06 PO Last administered on 09/09/16 05:46; Start 08/26/16 at 13:30 Olanzapine (Zyprexa) 2.5 mg HS PO Last administered on 09/08/16 20:54; Start 08/26/16 at 21:00 Sumatriptan Succinate (Imitrex) 100 mg PRN Q2HR PRN PO MIGRAINE HEADACHE Last administered on 09/09/16 07:58; Start 08/26/16 at 13:30 Tizanidine HCl (Zanaflex) 4 mg QHS PO Last administered on 08/26/16 19:57; Start 08/26/16 at 21:00; Stop 08/26/16 at 21:00; Status DC Tramadol HCl (Ultram) 50 mg BID PO Last administered on 08/31/16 07:48; Start 08/26/16 at 14:00; Stop 08/31/16 at 15:54; Status DC Ascorbic Acid (Vitamin C) 1,000 mg DAILY PO Last administered on 09/09/16 08: 46; Start 08/27/16 at 09:00 Amylase/Lipase/ Protease (Zenpep 5,000) 5 cap TIDWMEALS PO Last administered on 09/09/16 09:40; Start 08/26/16 at 17:00 Niacin (Slo-Niacin) 500 mg QHS PO Last administered on 09/08/16 20:54; Start 08/26/16 at 21:00 Pantoprazole Sodium (Protonix) 40 mg DAILYAC PO Last administered on 09/09/16 07:58; Start 08/26/16 at 14:00 Non-Formulary Medication 1 tab DAILY PO ; Start 08/27/16 at 09:00; Status UNV Diphenoxylate HCl/ Atropine (Lomotil) 1 tab PRN QID PRN PO DIARRHEA Last administered on 09/03/16 17:27; Start 08/26/16 at 13:45 Tizanidine HCl (Zanaflex) 20 mg QHS PO Last administered on 09/08/16 20:54; Start 08/26/16 at 21:00 Acetaminophen/ Hydrocodone Bitart (Lortab 5/325) 2 tab PRN Q6HRS PRN PO SEVERE PAIN Last administered on 08/29/16 10:47; Start 08/27/16 at 04:45; Stop at 16:41; Status DC Ondansetron HCl (Zofran) 4 mg PRN Q6HRS PRN IV NAUSEA/VOMITING Last administered on 09/05/16 23:16; Start 08/27/16 at 08:42 Vancomycin HCl 125 mg [id number] PO Last administered on 08/28/16 20:54; Start at 16:00; Stop 08/29/16 at 10:24; Status DC Lactobacillus Acidophilus 1 tab 1 tab TIDWMEALS PO Last administered on 07:58; Start 08/27/16 at 17:00 Sodium Chloride (Iv Sodium Chloride 0.9% 500ml Bag) 500 ml @ 500 mls/hr 1X ONCE IV Last administered on 08/28/16 00:52; Start 08/28/16 at 01:00; Stop at 01:59; Status DC Nicotine (Nicoderm Cq 21mg) 1 patch PRN DAILY PRN TD SMOKING CESSATION; Start 08/28/16 at 09:30 Cetirizine HCl (Zyrtec) 10 mg DAILY PO Last administered on 09/09/16 08:46; Start 08/28/16 at 10:00 Vitamin D (Vitamin D3) 1,000 unit DAILY PO Last administered on 09/09/16 08:46 ; Start 08/28/16 at 10:00 Iohexol (Omnipaque 300 Mg/ml) 75 ml 1X ONCE IV Last administered on 08/28/16 10:53; Start 08/28/16 at 10:15; Stop 08/28/16 at 10:16; Status DC Info (Do NOT chart on this entry -- for MONITORING) 1 each PRN DAILY PRN MC SEE COMMENTS; Start 08/28/16 at 10:00; Stop 08/30/16 at 09:59; Status DC Potassium Chloride (Klor-Con) 40 meq 1X ONCE PO Last administered on 13:52; Start 08/28/16 at 13:00; Stop 08/28/16 at 13:01; Status DC Lidocaine/Sodium Bicarbonate (Buffered Lidocaine 1%) 20 ml STK-MED ONCE IJ ; Start 08/29/16 at 08:36; Stop 08/29/16 at 08:37; Status DC Naloxone HCl (Narcan) 0.4 mg STK-MED ONCE .ROUTE ; Start 08/29/16 at 08:37; Stop 08/29/16 at 08:38; Status DC Flumazenil (Romazicon) 0.5 mg STK-MED ONCE IV ; Start 08/29/16 at 08:37; Stop at 08:38; Status DC Midazolam HCl (Versed) 5 mg STK-MED ONCE .ROUTE ; Start 08/29/16 at 08:37; Stop 08/29/16 at 08:38; Status DC Fentanyl Citrate (Fentanyl 5ml Vial) 250 mcg STK-MED ONCE .ROUTE ; Start at 08:37; Stop 08/29/16 at 08:38; Status DC Lidocaine/Sodium Bicarbonate (Buffered Lidocaine 1%) 6 ml 1X ONCE IJ Last administered on 08/29/16 09:09; Start 08/29/16 at 09:15; Stop 08/29/16 at 09:16 ; Status DC Midazolam HCl (Versed) 2 mg 1X ONCE IV Last administered on 08/29/16 09:08; Start 08/29/16 at 09:15; Stop 08/29/16 at 09:16; Status DC Fentanyl Citrate (Fentanyl 5ml Vial) 100 mcg 1X ONCE IV Last administered on 09:08; Start 08/29/16 at 09:15; Stop 08/29/16 at 09:16; Status DC Enoxaparin Sodium (Lovenox 40mg Syringe) 40 mg Q24H SQ Last administered on 16:01; Start 08/29/16 at 16:00; Stop 08/31/16 at 10:23; Status DC Acetaminophen/ Hydrocodone Bitart (Lortab 5/325) 1 tab PRN Q4HRS PRN PO MODERATE PAIN; Start 08/29/16 at 16:45; Stop 08/31/16 at 15:54; Status DC Acetaminophen/ Hydrocodone Bitart (Lortab 5/325) 2 tab PRN Q4HRS PRN PO SEVERE PAIN Last administered on 08/31/16 15:14; Start 08/29/16 at 16:45; Stop at 15:54; Status DC Lidocaine/Sodium Bicarbonate (Buffered Lidocaine 1%) 20 ml STK-MED ONCE IJ ; Start 08/30/16 at 13:57; Stop 08/30/16 at 13:58; Status DC Midazolam HCl (Versed) 2 mg STK-MED ONCE .ROUTE ; Start 08/30/16 at 14:22; Stop 08/30/16 at 14:23; Status DC Fentanyl Citrate (Fentanyl 2ml Vial) 100 mcg STK-MED ONCE .ROUTE ; Start at 14:22; Stop 08/30/16 at 14:23; Status DC Lidocaine/Sodium Bicarbonate (Buffered Lidocaine 1%) 4 ml 1X ONCE IJ Last administered on 08/30/16 15:08; Start 08/30/16 at 14:50; Stop 08/30/16 at 15:04 ; Status DC Midazolam HCl (Versed) 1 mg 1X ONCE IV Last administered on 08/30/16 15:09; Start 08/30/16 at 14:45; Stop 08/30/16 at 15:04; Status DC Fentanyl Citrate (Fentanyl 2ml Vial) 50 mcg 1X ONCE IV Last administered on 15:09; Start 08/30/16 at 14:45; Stop 08/30/16 at 15:05; Status DC Metoprolol Tartrate 25 mg 25 mg BID PO Last administered on 08/30/16 21:44; Start 08/30/16 at 21:00; Stop 08/31/16 at 17:09; Status DC Alteplase, Recombinant 5 mg/ Sterile Water 50 ml @ 5 mls/hr 1X ONCE IV ; Start 08/31/16 at 10:30; Stop 08/31/16 at 15:27; Status DC Alteplase, Recombinant 5 mg/ Sterile Water 50 ml @ 5 mls/hr 1X ONCE IV ; Start 08/31/16 at 10:45; Stop 08/31/16 at 15:27; Status DC Alteplase, Recombinant 5 mg/ Sterile Water 50 ml @ 5 mls/hr 1X ONCE INT CAT Last administered on 08/31/16 12:40; Start 08/31/16 at 15:27; Stop 08/31/16 at 20:29; Status DC Alteplase, Recombinant/ Sterile Water (Cathflo) 50 ml @ 5 mls/hr 1X ONCE INT CAT Last administered on 08/31/16 12:40; Start 08/31/16 at 15:27; Stop at 20:44; Status DC Oxycodone HCl (Roxicodone) 5 mg PRN Q3HRS PRN PO MODERATE - SEVERE PAIN Last administered on 09/09/16 01:39; Start 08/31/16 at 16:00 Morphine Sulfate 2 mg PRN Q6HRS PRN IV PAIN; Start 08/31/16 at 16:00; Stop at 18:07; Status DC Oxycodone HCl (Roxicodone) 10 mg PRN Q3HRS PRN PO MODERATE - SEVERE PAIN Last administered on 09/09/16 05:48; Start 08/31/16 at 16:00 Fentanyl Citrate (Fentanyl 2ml Vial) 50 mcg PRN Q2HR PRN IV PAIN SEV Last administered on 09/08/16 09:08; Start 08/31/16 at 18:15; Stop 09/08/16 at 10:32 ; Status DC Morphine Sulfate 2 mg 2 mg ONCE ONCE IV Last administered on 08/31/16 18:05; Start 08/31/16 at 20:45; Stop 08/31/16 at 20:46; Status DC Sodium Chloride (Iv Sodium Chloride 0.9% 500ml Bag) 500 ml @ 500 mls/hr 1X ONCE IV Last administered on 09/01/16 06:30; Start 09/01/16 at 06:30; Stop at 07:29; Status DC Alteplase, Recombinant (Cathflo) 2 mg 1X ONCE INT CAT Last administered on 06:35; Start 09/01/16 at 07:00; Stop 09/01/16 at 07:01; Status DC Albuterol Sulfate 2.5 mg 2.5 mg RTQID NEB Last administered on 09/09/16 07:35 ; Start 09/01/16 at 12:00 Sodium Chloride 1,000 ml @ 1,000 mls/hr 1X ONCE IV Last administered on 12:09; Start 09/01/16 at 11:45; Stop 09/01/16 at 12:44; Status DC Alteplase, Recombinant 5 mg/ Sterile Water 50 ml @ 5 mls/hr 1X ONCE INT CAT Last administered on 09/01/16 12:30; Start 09/01/16 at 12:30; Stop 09/01/16 at 22:29; Status DC Alteplase, Recombinant/ Sterile Water (Cathflo) 50 ml @ 5 mls/hr 1X ONCE INT CAT Last administered on 09/01/16 12:30; Start 09/01/16 at 12:30; Stop at 22:29; Status DC Alteplase, Recombinant 2 mg 2 mg 1X ONCE INT CAT Last administered on 15:18; Start 09/01/16 at 13:00; Stop 09/01/16 at 13:01; Status DC Sodium Chloride (Iv Sodium Chloride 0.9% 1000ml Bag) 1,000 ml @ 1,000 mls/hr 1X ONCE IV Last administered on 09/01/16t 23:45; Start 09/01/16 at 23:45; Stop 09/02/16 at 00:44; Status DC Fentanyl Citrate (Fentanyl 2ml Vial) 50 mcg 1X ONCE IV Last administered on t 15:30; Start 09/03/16 at 15:30; Stop 09/03/16 at 15:35; Status DC Bupivacaine HCl (Sensorcaine Mpf 0.5%) 30 ml STK-MED ONCE .ROUTE ; Start at 12:12; Stop 09/05/16 at 12:13; Status DC Lidocaine HCl 20 ml STK-MED ONCE .ROUTE ; Start 09/05/16 at 12:13; Stop at 12:14; Status DC Cellulose 1 each STK-MED ONCE .ROUTE ; Start 09/05/16 at 12:13; Stop 09/05/16 at 12:14; Status DC Lidocaine HCl 100 mg 100 mg STK-MED ONCE .ROUTE ; Start 09/05/16 at 13:16; Stop 09/05/16 at 13:17; Status DC Propofol (Diprivan) 100 ml @ As Directed STK-MED ONCE IV ; Start 09/05/16 at 13 :16; Stop 09/05/16 at 13:17; Status DC Fentanyl Citrate (Fentanyl 2ml Vial) 100 mcg STK-MED ONCE .ROUTE ; Start at 13:16; Stop 09/05/16 at 13:17; Status DC Rocuronium [place] (Zemuron) 50 mg STK-MED ONCE .ROUTE ; Start 09/05/16 at 13:16 ; Stop 09/05/16 at 13:17; Status DC Lidocaine HCl 1 ml 1 ml STK-MED ONCE .ROUTE ; Start 09/05/16 at 13:20; Stop at 13:21; Status DC Lactated Ringer's (Iv Lactated Ringers) 1,000 ml @ 100 mls/hr Q10H IV Last administered on 09/06/16 06:22; Start 09/05/16 at 14:15; Stop 09/06/16 at 18:30 ; Status DC Lidocaine HCl (Xylocaine-Mpf 1% Vial) 2 ml 1X ONCE INJ Last administered on t 13:35; Start 09/05/16 at 14:30; Stop 09/05/16 at 14:31; Status DC Dexamethasone Sodium Phosphate (Decadron) 20 mg STK-MED ONCE .ROUTE ; Start at 14:49; Stop 09/05/16 at 14:50; Status DC Sevoflurane (Ultane) 90 ml STK-MED ONCE IH ; Start 09/05/16 at 14:49; Stop 09/05 at 14:50; Status DC Fentanyl Citrate (Fentanyl 2ml Vial) 100 mcg STK-MED ONCE .ROUTE ; Start at 15:07; Stop 09/05/16 at 15:08; Status DC Metoprolol Tartrate (Lopressor) 5 mg STK-MED ONCE .ROUTE ; Start 09/05/16 at 15: 09; Stop 09/05/16 at 15:10; Status DC Ondansetron HCl (Zofran) 4 mg STK-MED ONCE .ROUTE ; Start 09/05/16 at 15:23; Stop 09/05/16 at 15:24; Status DC Glycopyrrolate (Robinul) 1 mg STK-MED ONCE .ROUTE ; Start 09/05/16 at 15:23; Stop 09/05/16 at 15:24; Status DC Neostigmine Methylsulfate 5 mg STK-MED ONCE .ROUTE ; Start 09/05/16 at 15:23; Stop 09/05/16 at 15:24; Status DC Rocuronium [place] (Zemuron) 50 mg STK-MED ONCE .ROUTE ; Start 09/05/16 at 15:24 ; Stop 09/05/16 at 15:25; Status DC Ondansetron HCl (Zofran) 4 mg PRN Q6HRS PRN IV Nausea; Start 09/05/16 at 17:15 ; Stop 09/05/16 at 19:00; Status DC Fentanyl Citrate (Fentanyl 2ml Vial) 25 mcg PRN Q5MIN PRN IV MILD PAIN; Start 09/05/16 at 17:15; Stop 09/05/16 at 19:00; Status DC Fentanyl Citrate (Fentanyl 2ml Vial) 50 mcg PRN Q5MIN PRN IV MODERATE PAIN; Start 09/05/16 at 17:15; Stop 09/05/16 at 19:00; Status DC Morphine Sulfate 1 mg 1 mg PRN Q10MIN PRN IV SEVERE PAIN; Start 09/05/16 at 17: 15; Stop 09/05/16 at 19:00; Status DC Lactated Ringer's (Iv Lactated Ringers) 1,000 ml @ 0 mls/hr Q0M IV ; Start at 17:06; Stop 09/05/16 at 19:00; Status DC Lidocaine HCl 2 ml 1X PRN PRN ID IV START; Start 09/05/16 at 17:15; Stop at 19:00; Status DC Hydromorphone HCl (Dilaudid) 0.5 mg PRN Q10MIN PRN IV SEV PAIN,Second choice; Start 09/05/16 at 17:15; Stop 09/05/16 at 19:00; Status DC Prochlorperazine Edisylate (Compazine) 5 mg PACU PRN PRN IV NAUSEA; Start 09/05 at 17:15; Stop 09/05/16 at 19:00; Status DC Phenylephrine HCl (Fortino-Synephrine Inj) 10 mg STK-MED ONCE .ROUTE ; Start at 17:37; Stop 09/05/16 at 17:38; Status DC Sodium Bicarbonate 50 meq 50 meq STK-MED ONCE .ROUTE ; Start 09/05/16 at 17:58; Stop 09/05/16 at 17:59; Status DC Lactated Ringer's 500 ml @ 75 mls/hr 1X ONCE IV Last administered on 22:02; Start 09/05/16 at 21:30; Stop 09/06/16 at 04:09; Status DC Sodium Chloride (Iv Sodium Chloride 0.9% 500ml Bag) 500 ml @ 500 mls/hr 1X ONCE IV Last administered on 09/07/16 00:17; Start 09/07/16 at 00:00; Stop at 00:59; Status DC Fentanyl Citrate (Fentanyl 2ml Vial) 75 mcg PRN Q2HR PRN IV PAIN SEV Last administered on 09/09/16 03:21; Start 09/08/16 at 11:00 Morphine Sulfate (Ms Contin) 15 mg BID PO Last administered on 09/09/16 08:46 ; Start 09/08/16 at 11:00 Cefpodoxime Proxetil (Vantin) 100 mg BID PO Last administered on 09/09/16 08: 45; Start 09/08/16 at 14:00 Enoxaparin Sodium (Lovenox 30mg Syringe) 30 mg Q24H SQ Last administered on 20:53; Start 09/08/16 at 21:00; Stop 09/09/16 at 08:39; Status DC Enoxaparin Sodium (Lovenox 40mg Syringe) 40 mg Q24H SQ ; Start 09/09/16 at 21:00 Active Scripts Active Reported [diphen/atropine] 2.5 Mg PO PRN QID PRN Prilosec Otc (Omeprazole Magnesium) 20 Mg Tablet.dr 1 Tab PO DAILY Lialda (Mesalamine) 1.2 Gm Tablet.dr 4 Tab PO DAILY06 Tizanidine Hcl 4 Mg Tablet 5 Tab PO QHS Olanzapine 2.5 Mg Tablet 2.5 Mg PO HS Zyrtec (Cetirizine Hcl) 10 Mg Capsule 10 Mg PO DAILY Dhea 50 Mg Tablet (Prasterone (Dhea)/Calcium Carb) 1 Each Tablet 1 Tab PO DAILY Niacin 500 Mg Tablet 500 Mg PO HS Vitamin D3 (Cholecalciferol (Vitamin D3)) 1,000 Unit Capsule 1,000 Unit PO DAILY Vitamin C (Ascorbic Acid) 1,000 Mg Tab.chew 1,000 Mg PO DAILY Imitrex (Sumatriptan Succinate) 100 Mg Tablet 100 Mg PO ONCE PRN Tramadol Hcl 50 Mg Tablet 4 Tab PO BID Zenpep Dr 25,000 Units Capsule (Lipase/Protease/Amylase) 1 Each Capsule.dr 1 Each PO TIDAFTMEAL Vitals/I & O Vital Sign - Last 24 Hours 09/08/16 09/08/16 09/08/16 09/08/16 11:01 11:20 11:55 11:56 Temp 98.1 98.1 Pulse 111 Resp 20 18 18 B/P 159/83 Pulse Ox 100 99 99 99 O2 Delivery Nasal Cannula Nasal Cannula Nasal Cannula Nasal Cannula O2 Flow Rate 1.0 1.0 1.0 09/08/16 09/08/16 09/08/16 09/08/16 12:03 12:26 13:03 15:40 Temp 97.9 97.9 Pulse 107 Resp 18 18 16 B/P 165/97 Pulse Ox 100 O2 Delivery Nasal Cannula Nasal Cannula Nasal Cannula O2 Flow Rate 1.0 1.0 1.0 09/08/16 09/08/16 09/08/16 09/08/16 15:55 16:00 17:09 17:16 Resp 18 18 18 Pulse Ox 100 98 98 96 O2 Delivery Nasal Cannula Nasal Cannula Nasal Cannula Room Air O2 Flow Rate 1.0 1.0 1.0 09/08/16 09/08/16 09/08/16 09/08/16 18:12 19:13 19:24 20:00 Temp 98.2 98.2 Pulse 120 Resp 18 20 B/P 137/79 Pulse Ox 96 96 98 O2 Delivery Room Air Room Air Room Air Nasal Cannula O2 Flow Rate 1.0 09/08/16 09/09/16 09/09/16 09/09/16 23:05 03:08 06:48 07:00 Temp 98.1 97.4 97.9 98.1 97.4 97.9 Pulse 95 93 115 Resp 18 20 18 20 B/P 104/65 102/61 164/84 Pulse Ox 100 100 99 95 O2 Delivery Nasal Cannula Nasal Cannula Nasal Cannula Nasal Cannula O2 Flow Rate 2.0 2.0 1.0 2.0 09/09/16 09/09/16 09/09/16 07:35 08:08 08:46 Resp 18 Pulse Ox 100 95 O2 Delivery Nasal Cannula Room Air Room Air O2 Flow Rate 2.0 Intake and Output 09/08/16 09/08/16 09/09/16 15:00 23:00 07:00 Intake Total 240 ml 1200 ml Output Total 675 ml 850 ml Balance 240 ml -675 ml 350 ml KARENA VENEGAS MD Sep 09, 2016 10:42
[2016-09-09 11:00] VITALS: BP 156/87
--- NOTE | 2016-09-09 11:00 | PDOC ---
PROGRESS NOTES Chief Complaint Chief Complaint 1. PNA: multilobar. w/ empyema 2. Empyema: s/p VATS, w/ chest tubes draining 3. COPD exacerbation: improving 4. Sepsis: resolved 5. HTN, tachycardia: vitals improved 6. BP at low normal, prob influenced by IV narcotics. IVF boluses PRN 7. Ulcerative Colitis: on mesalamine, pancreatic enzymes, macrobiotics 8. Depression: on zyprexa 9. Smoker: nicotine patch 10. Migraine: imitrex PRN 11. chest pain: musculoskeletal from chest tubes fentanyl, Oxy PO PRN History of Present Illness History of Present Illness pain much better today, MS radha woods well still didnt sleep well, would like additional dose doyle out pain 11/21 doing better s/p VATS, drainage of empyema and pulmonary decortication. chest tubes in place. Vitals Vitals Vital Signs Date Time Temp Pulse Resp B/P Pulse Ox O2 Delivery O2 Flow Rate FiO2 09/09/16 10:46 Nasal Cannula 2.0 09/09/16 08:46 18 95 09/09/16 07:00 97.9 115 164/84 97.9 Physical Exam Physical Exam GENERAL: NAD, Alert HEENT: PERRL, OC/OP NECK: Supple, no JVD, no LN LUNGS: Clear HEART: S1S2, no gallop, no murmur ABD: Soft, NT, no organomegaly, no rebound EXT: No edema, no cyanosis [employer] CLERK: Alert, oriented x 3, no focal neurologic deficit SKIN: No rash IV: ok General: Alert, Oriented X3, No acute distress Heart: Normal S1, Normal S2, No murmurs, Other Lungs: Other (decrease bs) Abdomen: Soft, No tenderness Extremities: No edema Skin: Other Assessment and Plan Assessmemt and Plan Problems Medical Problems: (1) CAP (community acquired pneumonia) Status: Acute (2) Empyema of lung Status: Acute Problems: Comment Review of Relevant I have reviewed the following items randi (where applicable) has been applied. Labs Laboratory Tests Test 09/07/16 11:40 09/08/16 04:45 White Blood Count 12.9x10^3/uL (4.0-11.0) 8.4x10^3/uL (4.0-11.0) Red Blood Count 2.89x10^6/uL (3.50-5.40) 2.38x10^6/uL (3.50-5.40) Hemoglobin 8.5g/dL (12.0-15.5) 7.2g/dL (12.0-15.5) Hematocrit 24.8% (36.0-47.0) 21.1% (36.0-47.0) Mean Corpuscular Volume 86fL (79-100) 89fL (79-100) Mean Corpuscular Hemoglobin 29pg (25-35) 30pg (25-35) Mean Corpuscular Hemoglobin Concent 34g/dL (31-37) 34g/dL (31-37) Red Cell Distribution Width 14.9% (11.5-14.5) 14.8% (11.5-14.5) Platelet Count 246x10^3/uL (140-400) 199x10^3/uL (140-400) Neutrophils (%) (Auto) 88% (31-73) 76% (31-73) Lymphocytes (%) (Auto) 6% (24-48) 13% (24-48) Monocytes (%) (Auto) 5% (0-9) 7% (0-9) Eosinophils (%) (Auto) 1% (0-3) 2% (0-3) Basophils (%) (Auto) 1% (0-3) 1% (0-3) Neutrophils # (Auto) 11.3x10^3uL (1.8-7.7) 6.4x10^3uL (1.8-7.7) Lymphocytes # (Auto) 0.8x10^3/uL (1.0-4.8) 1.1x10^3/uL (1.0-4.8) Monocytes # (Auto) 0.6x10^3/uL (0.0-1.1) 0.6x10^3/uL (0.0-1.1) Eosinophils # (Auto) 0.1x10^3/uL (0.0-0.7) 0.2x10^3/uL (0.0-0.7) Basophils # (Auto) 0.1x10^3/uL (0.0-0.2) 0.1x10^3/uL (0.0-0.2) Sodium Level 140mmol/L (136-145) Potassium Level 3.4mmol/L (3.5-5.1) Chloride Level 104mmol/L (98-107) Carbon Dioxide Level 28mmol/L (21-32) Anion Gap 8 (6-14) Blood Urea Nitrogen 6mg/dL (7-20) Creatinine 0.7mg/dL (0.6-1.0) Estimated GFR (Cockcroft-Gault) 86.9 BUN/Creatinine Ratio 9 (6-20) Glucose Level 83mg/dL (70-99) Calcium Level 8.1mg/dL (8.5-10.1) Total Bilirubin 0.3mg/dL (0.2-1.0) Aspartate Amino Transf (AST/SGOT) 29U/L (15-37) Alanine Aminotransferase (ALT/SGPT) 32U/L (14-59) Alkaline Phosphatase 65U/L (46-116) Total Protein 6.0g/dL (6.4-8.2) Albumin 1.3g/dL (3.4-5.0) Albumin/Globulin Ratio 0.3 (1.0-1.7) Microbiology 09/05/16 Anaerobic/Aerobic Culture - Preliminary, Resulted 09/05/16 Anaerobic Culture Result 1 (BRUCE) - Preliminary, Resulted 09/05/16 Aerobic Culture - Preliminary, Resulted 09/05/16 Aerobic Culture Result 1 (BRUCE) - Preliminary, Resulted 09/05/16 Anaerobic/Aerobic Culture - Preliminary, Resulted 09/05/16 Anaerobic Culture Result 1 (BRUCE) - Preliminary, Resulted 09/05/16 Aerobic Culture - Preliminary, Resulted 09/05/16 Aerobic Culture Result 1 (BRUCE) - Preliminary, Resulted Medications Current Medications Acetaminophen (Tylenol) 325 mg PRN Q6HRS PRN PO MILD PAIN / TEMP Last administered on 08/26/16 08:29; Start 08/25/16 at 12:45 Acetaminophen/ Hydrocodone Bitart (Lortab 5/325) 1 tab PRN Q6HRS PRN PO MODERATE PAIN Last administered on 08/27/16 02:06; Start 08/25/16 at 12:45; Stop 08/29/16 at 16:41; Status DC Hydralazine HCl (Apresoline) 10 mg PRN Q4HRS PRN IVP ELEVATED BP, SEE COMMENTS Last administered on 08/26/16 05:07; Start 08/25/16 at 12:45 Ondansetron HCl (Zofran) 4 mg PRN Q8HRS PRN IV NAUSEA/VOMITING Last administered on 08/25/16 15:42; Start 08/25/16 at 12:45; Stop 08/27/16 at 08:44 ; Status DC Albuterol Sulfate 2.5 mg 2.5 mg PRN Q4HRS PRN NEB SHORTNESS OF BREATH; Start at 12:45 Piperacillin Sod/ Tazobactam Sod 3.375 gm/Sodium Chloride 50 ml @ 100 mls/hr Q6HRS IV Last administered on 09/08/16 06:00; Start 08/25/16 at 13:00; Stop at 07:53; Status DC Linezolid (Zyvox Premix) 300 ml @ 300 mls/hr Q12HR IV Last administered on 21:39; Start 08/25/16 at 14:00; Stop 09/08/16 at 07:52; Status DC Piperacillin Sod/ Tazobactam Sod 1 each 1 each PRN DAILY PRN MC SEE COMMENTS; Start 08/25/16 at 13:45; Stop 08/27/16 at 12:41; Status DC Levofloxacin/ Dextrose (LEVAQUIN 750mg PREMIX) 150 ml @ 100 mls/hr Q24H IV Last administered on 08/28/16 13:51; Start 08/25/16 at 14:00; Stop 08/28/16 at 14:37; Status DC Lidocaine/Sodium Bicarbonate (Buffered Lidocaine 1%) 20 ml STK-MED ONCE IJ ; Start 08/25/16 at 14:00; Stop 08/25/16 at 14:01; Status DC Lidocaine/Sodium Bicarbonate (Buffered Lidocaine 1%) 5 ml 1X ONCE IJ Last administered on 08/25/16 14:59; Start 08/25/16 at 15:00; Stop 08/25/16 at 15:01 ; Status DC Info (Do NOT chart on this placeholder) 1 each 1X ONCE MC ; Start 08/25/16 at 17:00; Stop 08/25/16 at 17:01; Status UNV Pneumococcal Polyvalent Vaccine (Do NOT chart on this placeholder) 1 each 1X ONCE MC ; Start 08/25/16 at 17:00; Stop 08/25/16 at 17:01; Status UNV Influenza Virus Vaccine Quadrival (Fluarix Quad 1600-3123 Syringe) 0.5 ml ONCE ONCE VAX IM ; Start 08/26/16 at 09:00; Stop 08/26/16 at 09:01; Status DC Pneumococcal Polyvalent Vaccine (Pneumovax 23) 0.5 ml ONCE ONCE VAX IM ; Start 08/26/16 at 09:00; Stop 08/26/16 at 09:01; Status DC Enoxaparin Sodium (Lovenox 40mg Syringe) 40 mg Q24H SQ Last administered on 08:19; Start 08/26/16 at 09:00; Stop 08/29/16 at 11:45; Status DC Fentanyl Citrate (Fentanyl 2ml Vial) 25 mcg PRN Q4HRS PRN IV PAIN Last administered on 08/27/16 06:13; Start 08/26/16 at 08:30; Stop 08/29/16 at 15:07 ; Status DC Potassium Chloride (Klor-Con) 40 meq 1X ONCE PO Last administered on 11:24; Start 08/26/16 at 10:45; Stop 08/26/16 at 10:49; Status DC Mesalamine (Lialda) 4.8 gm DAILY06 PO Last administered on 09/09/16 05:46; Start 08/26/16 at 13:30 Olanzapine (Zyprexa) 2.5 mg HS PO Last administered on 09/08/16 20:54; Start 08/26/16 at 21:00 Sumatriptan Succinate (Imitrex) 100 mg PRN Q2HR PRN PO MIGRAINE HEADACHE Last administered on 09/09/16 07:58; Start 08/26/16 at 13:30 Tizanidine HCl (Zanaflex) 4 mg QHS PO Last administered on 08/26/16 19:57; Start 08/26/16 at 21:00; Stop 08/26/16 at 21:00; Status DC Tramadol HCl (Ultram) 50 mg BID PO Last administered on 08/31/16 07:48; Start 08/26/16 at 14:00; Stop 08/31/16 at 15:54; Status DC Ascorbic Acid (Vitamin C) 1,000 mg DAILY PO Last administered on 09/09/16 08: 46; Start 08/27/16 at 09:00 Amylase/Lipase/ Protease (Zenpep 5,000) 5 cap TIDWMEALS PO Last administered on 09/09/16 09:40; Start 08/26/16 at 17:00 Niacin (Slo-Niacin) 500 mg QHS PO Last administered on 09/08/16 20:54; Start 08/26/16 at 21:00 Pantoprazole Sodium (Protonix) 40 mg DAILYAC PO Last administered on 09/09/16 07:58; Start 08/26/16 at 14:00 Non-Formulary Medication 1 tab DAILY PO ; Start 08/27/16 at 09:00; Status UNV Diphenoxylate HCl/ Atropine (Lomotil) 1 tab PRN QID PRN PO DIARRHEA Last administered on 09/03/16 17:27; Start 08/26/16 at 13:45 Tizanidine HCl (Zanaflex) 20 mg QHS PO Last administered on 09/08/16 20:54; Start 08/26/16 at 21:00 Acetaminophen/ Hydrocodone Bitart (Lortab 5/325) 2 tab PRN Q6HRS PRN PO SEVERE PAIN Last administered on 08/29/16 10:47; Start 08/27/16 at 04:45; Stop at 16:41; Status DC Ondansetron HCl (Zofran) 4 mg PRN Q6HRS PRN IV NAUSEA/VOMITING Last administered on 09/05/16 23:16; Start 08/27/16 at 08:42 Vancomycin HCl 125 mg [id number] PO Last administered on 08/28/16 20:54; Start at 16:00; Stop 08/29/16 at 10:24; Status DC Lactobacillus Acidophilus 1 tab 1 tab TIDWMEALS PO Last administered on 07:58; Start 08/27/16 at 17:00 Sodium Chloride (Iv Sodium Chloride 0.9% 500ml Bag) 500 ml @ 500 mls/hr 1X ONCE IV Last administered on 08/28/16 00:52; Start 08/28/16 at 01:00; Stop at 01:59; Status DC Nicotine (Nicoderm Cq 21mg) 1 patch PRN DAILY PRN TD SMOKING CESSATION; Start 08/28/16 at 09:30 Cetirizine HCl (Zyrtec) 10 mg DAILY PO Last administered on 09/09/16 08:46; Start 08/28/16 at 10:00 Vitamin D (Vitamin D3) 1,000 unit DAILY PO Last administered on 09/09/16 08:46 ; Start 08/28/16 at 10:00 Iohexol (Omnipaque 300 Mg/ml) 75 ml 1X ONCE IV Last administered on 08/28/16 10:53; Start 08/28/16 at 10:15; Stop 08/28/16 at 10:16; Status DC Info (Do NOT chart on this entry -- for MONITORING) 1 each PRN DAILY PRN MC SEE COMMENTS; Start 08/28/16 at 10:00; Stop 08/30/16 at 09:59; Status DC Potassium Chloride (Klor-Con) 40 meq 1X ONCE PO Last administered on 13:52; Start 08/28/16 at 13:00; Stop 08/28/16 at 13:01; Status DC Lidocaine/Sodium Bicarbonate (Buffered Lidocaine 1%) 20 ml STK-MED ONCE IJ ; Start 08/29/16 at 08:36; Stop 08/29/16 at 08:37; Status DC Naloxone HCl (Narcan) 0.4 mg STK-MED ONCE .ROUTE ; Start 08/29/16 at 08:37; Stop 08/29/16 at 08:38; Status DC Flumazenil (Romazicon) 0.5 mg STK-MED ONCE IV ; Start 08/29/16 at 08:37; Stop at 08:38; Status DC Midazolam HCl (Versed) 5 mg STK-MED ONCE .ROUTE ; Start 08/29/16 at 08:37; Stop 08/29/16 at 08:38; Status DC Fentanyl Citrate (Fentanyl 5ml Vial) 250 mcg STK-MED ONCE .ROUTE ; Start at 08:37; Stop 08/29/16 at 08:38; Status DC Lidocaine/Sodium Bicarbonate (Buffered Lidocaine 1%) 6 ml 1X ONCE IJ Last administered on 08/29/16 09:09; Start 08/29/16 at 09:15; Stop 08/29/16 at 09:16 ; Status DC Midazolam HCl (Versed) 2 mg 1X ONCE IV Last administered on 08/29/16 09:08; Start 08/29/16 at 09:15; Stop 08/29/16 at 09:16; Status DC Fentanyl Citrate (Fentanyl 5ml Vial) 100 mcg 1X ONCE IV Last administered on 09:08; Start 08/29/16 at 09:15; Stop 08/29/16 at 09:16; Status DC Enoxaparin Sodium (Lovenox 40mg Syringe) 40 mg Q24H SQ Last administered on 16:01; Start 08/29/16 at 16:00; Stop 08/31/16 at 10:23; Status DC Acetaminophen/ Hydrocodone Bitart (Lortab 5/325) 1 tab PRN Q4HRS PRN PO MODERATE PAIN; Start 08/29/16 at 16:45; Stop 08/31/16 at 15:54; Status DC Acetaminophen/ Hydrocodone Bitart (Lortab 5/325) 2 tab PRN Q4HRS PRN PO SEVERE PAIN Last administered on 08/31/16 15:14; Start 08/29/16 at 16:45; Stop at 15:54; Status DC Lidocaine/Sodium Bicarbonate (Buffered Lidocaine 1%) 20 ml STK-MED ONCE IJ ; Start 08/30/16 at 13:57; Stop 08/30/16 at 13:58; Status DC Midazolam HCl (Versed) 2 mg STK-MED ONCE .ROUTE ; Start 08/30/16 at 14:22; Stop 08/30/16 at 14:23; Status DC Fentanyl Citrate (Fentanyl 2ml Vial) 100 mcg STK-MED ONCE .ROUTE ; Start at 14:22; Stop 08/30/16 at 14:23; Status DC Lidocaine/Sodium Bicarbonate (Buffered Lidocaine 1%) 4 ml 1X ONCE IJ Last administered on 08/30/16 15:08; Start 08/30/16 at 14:50; Stop 08/30/16 at 15:04 ; Status DC Midazolam HCl (Versed) 1 mg 1X ONCE IV Last administered on 08/30/16 15:09; Start 08/30/16 at 14:45; Stop 08/30/16 at 15:04; Status DC Fentanyl Citrate (Fentanyl 2ml Vial) 50 mcg 1X ONCE IV Last administered on 15:09; Start 08/30/16 at 14:45; Stop 08/30/16 at 15:05; Status DC Metoprolol Tartrate 25 mg 25 mg BID PO Last administered on 08/30/16 21:44; Start 08/30/16 at 21:00; Stop 08/31/16 at 17:09; Status DC Alteplase, Recombinant 5 mg/ Sterile Water 50 ml @ 5 mls/hr 1X ONCE IV ; Start 08/31/16 at 10:30; Stop 08/31/16 at 15:27; Status DC Alteplase, Recombinant 5 mg/ Sterile Water 50 ml @ 5 mls/hr 1X ONCE IV ; Start 08/31/16 at 10:45; Stop 08/31/16 at 15:27; Status DC Alteplase, Recombinant 5 mg/ Sterile Water 50 ml @ 5 mls/hr 1X ONCE INT CAT Last administered on 08/31/16t 12:40; Start 08/31/16 at 15:27; Stop 08/31/16 at 20:29; Status DC Alteplase, Recombinant/ Sterile Water (Cathflo) 50 ml @ 5 mls/hr 1X ONCE INT CAT Last administered on 08/31/16 12:40; Start 08/31/16 at 15:27; Stop at 20:44; Status DC Oxycodone HCl (Roxicodone) 5 mg PRN Q3HRS PRN PO MODERATE - SEVERE PAIN Last administered on 09/09/16 01:39; Start 08/31/16 at 16:00 Morphine Sulfate 2 mg PRN Q6HRS PRN IV PAIN; Start 08/31/16 at 16:00; Stop at 18:07; Status DC Oxycodone HCl (Roxicodone) 10 mg PRN Q3HRS PRN PO MODERATE - SEVERE PAIN Last administered on 09/09/16 05:48; Start 08/31/16 at 16:00 Fentanyl Citrate (Fentanyl 2ml Vial) 50 mcg PRN Q2HR PRN IV PAIN SEV Last administered on 09/08/16 09:08; Start 08/31/16 at 18:15; Stop 09/08/16 at 10:32 ; Status DC Morphine Sulfate 2 mg 2 mg ONCE ONCE IV Last administered on 08/31/16 18:05; Start 08/31/16 at 20:45; Stop 08/31/16 at 20:46; Status DC Sodium Chloride (Iv Sodium Chloride 0.9% 500ml Bag) 500 ml @ 500 mls/hr 1X ONCE IV Last administered on 09/01/16 06:30; Start 09/01/16 at 06:30; Stop at 07:29; Status DC Alteplase, Recombinant (Cathflo) 2 mg 1X ONCE INT CAT Last administered on 06:35; Start 09/01/16 at 07:00; Stop 09/01/16 at 07:01; Status DC Albuterol Sulfate 2.5 mg 2.5 mg RTQID NEB Last administered on 09/09/16 10:45 ; Start 09/01/16 at 12:00 Sodium Chloride 1,000 ml @ 1,000 mls/hr 1X ONCE IV Last administered on 12:09; Start 09/01/16 at 11:45; Stop 09/01/16 at 12:44; Status DC Alteplase, Recombinant 5 mg/ Sterile Water 50 ml @ 5 mls/hr 1X ONCE INT CAT Last administered on 09/01/16 12:30; Start 09/01/16 at 12:30; Stop 09/01/16 at 22:29; Status DC Alteplase, Recombinant/ Sterile Water (Cathflo) 50 ml @ 5 mls/hr 1X ONCE INT CAT Last administered on 09/01/16 12:30; Start 09/01/16 at 12:30; Stop at 22:29; Status DC Alteplase, Recombinant 2 mg 2 mg 1X ONCE INT CAT Last administered on 15:18; Start 09/01/16 at 13:00; Stop 09/01/16 at 13:01; Status DC Sodium Chloride (Iv Sodium Chloride 0.9% 1000ml Bag) 1,000 ml @ 1,000 mls/hr 1X ONCE IV Last administered on 09/01/16t 23:45; Start 09/01/16 at 23:45; Stop 09/02/16 at 00:44; Status DC Fentanyl Citrate (Fentanyl 2ml Vial) 50 mcg 1X ONCE IV Last administered on t 15:30; Start 09/03/16 at 15:30; Stop 09/03/16 at 15:35; Status DC Bupivacaine HCl (Sensorcaine Mpf 0.5%) 30 ml STK-MED ONCE .ROUTE ; Start at 12:12; Stop 09/05/16 at 12:13; Status DC Lidocaine HCl 20 ml STK-MED ONCE .ROUTE ; Start 09/05/16 at 12:13; Stop at 12:14; Status DC Cellulose 1 each STK-MED ONCE .ROUTE ; Start 09/05/16 at 12:13; Stop 09/05/16 at 12:14; Status DC Lidocaine HCl 100 mg 100 mg STK-MED ONCE .ROUTE ; Start 09/05/16 at 13:16; Stop 09/05/16 at 13:17; Status DC Propofol (Diprivan) 100 ml @ As Directed STK-MED ONCE IV ; Start 09/05/16 at 13 :16; Stop 09/05/16 at 13:17; Status DC Fentanyl Citrate (Fentanyl 2ml Vial) 100 mcg STK-MED ONCE .ROUTE ; Start at 13:16; Stop 09/05/16 at 13:17; Status DC Rocuronium [place] (Zemuron) 50 mg STK-MED ONCE .ROUTE ; Start 09/05/16 at 13:16 ; Stop 09/05/16 at 13:17; Status DC Lidocaine HCl 1 ml 1 ml STK-MED ONCE .ROUTE ; Start 09/05/16 at 13:20; Stop at 13:21; Status DC Lactated Ringer's (Iv Lactated Ringers) 1,000 ml @ 100 mls/hr Q10H IV Last administered on 09/06/16t 06:22; Start 09/05/16 at 14:15; Stop 09/06/16 at 18:30 ; Status DC Lidocaine HCl (Xylocaine-Mpf 1% Vial) 2 ml 1X ONCE INJ Last administered on t 13:35; Start 09/05/16 at 14:30; Stop 09/05/16 at 14:31; Status DC Dexamethasone Sodium Phosphate (Decadron) 20 mg STK-MED ONCE .ROUTE ; Start at 14:49; Stop 09/05/16 at 14:50; Status DC Sevoflurane (Ultane) 90 ml STK-MED ONCE IH ; Start 09/05/16 at 14:49; Stop 09/05 at 14:50; Status DC Fentanyl Citrate (Fentanyl 2ml Vial) 100 mcg STK-MED ONCE .ROUTE ; Start at 15:07; Stop 09/05/16 at 15:08; Status DC Metoprolol Tartrate (Lopressor) 5 mg STK-MED ONCE .ROUTE ; Start 09/05/16 at 15: 09; Stop 09/05/16 at 15:10; Status DC Ondansetron HCl (Zofran) 4 mg STK-MED ONCE .ROUTE ; Start 09/05/16 at 15:23; Stop 09/05/16 at 15:24; Status DC Glycopyrrolate (Robinul) 1 mg STK-MED ONCE .ROUTE ; Start 09/05/16 at 15:23; Stop 09/05/16 at 15:24; Status DC Neostigmine Methylsulfate 5 mg STK-MED ONCE .ROUTE ; Start 09/05/16 at 15:23; Stop 09/05/16 at 15:24; Status DC Rocuronium [place] (Zemuron) 50 mg STK-MED ONCE .ROUTE ; Start 09/05/16 at 15:24 ; Stop 09/05/16 at 15:25; Status DC Ondansetron HCl (Zofran) 4 mg PRN Q6HRS PRN IV Nausea; Start 09/05/16 at 17:15 ; Stop 09/05/16 at 19:00; Status DC Fentanyl Citrate (Fentanyl 2ml Vial) 25 mcg PRN Q5MIN PRN IV MILD PAIN; Start 09/05/16 at 17:15; Stop 09/05/16 at 19:00; Status DC Fentanyl Citrate (Fentanyl 2ml Vial) 50 mcg PRN Q5MIN PRN IV MODERATE PAIN; Start 09/05/16 at 17:15; Stop 09/05/16 at 19:00; Status DC Morphine Sulfate 1 mg 1 mg PRN Q10MIN PRN IV SEVERE PAIN; Start 09/05/16 at 17: 15; Stop 09/05/16 at 19:00; Status DC Lactated Ringer's (Iv Lactated Ringers) 1,000 ml @ 0 mls/hr Q0M IV ; Start at 17:06; Stop 09/05/16 at 19:00; Status DC Lidocaine HCl 2 ml 1X PRN PRN ID IV START; Start 09/05/16 at 17:15; Stop at 19:00; Status DC Hydromorphone HCl (Dilaudid) 0.5 mg PRN Q10MIN PRN IV SEV PAIN,Second choice; Start 09/05/16 at 17:15; Stop 09/05/16 at 19:00; Status DC Prochlorperazine Edisylate (Compazine) 5 mg PACU PRN PRN IV NAUSEA; Start 09/05 at 17:15; Stop 09/05/16 at 19:00; Status DC Phenylephrine HCl (Fortino-Synephrine Inj) 10 mg STK-MED ONCE .ROUTE ; Start at 17:37; Stop 09/05/16 at 17:38; Status DC Sodium Bicarbonate 50 meq 50 meq STK-MED ONCE .ROUTE ; Start 09/05/16 at 17:58; Stop 09/05/16 at 17:59; Status DC Lactated Ringer's 500 ml @ 75 mls/hr 1X ONCE IV Last administered on 22:02; Start 09/05/16 at 21:30; Stop 09/06/16 at 04:09; Status DC Sodium Chloride (Iv Sodium Chloride 0.9% 500ml Bag) 500 ml @ 500 mls/hr 1X ONCE IV Last administered on 09/07/16 00:17; Start 09/07/16 at 00:00; Stop at 00:59; Status DC Fentanyl Citrate (Fentanyl 2ml Vial) 75 mcg PRN Q2HR PRN IV PAIN SEV Last administered on 09/09/16 03:21; Start 09/08/16 at 11:00 Morphine Sulfate (Ms Contin) 15 mg BID PO Last administered on 09/09/16 08:46 ; Start 09/08/16 at 11:00 Cefpodoxime Proxetil (Vantin) 100 mg BID PO Last administered on 09/09/16 08: 45; Start 09/08/16 at 14:00 Enoxaparin Sodium (Lovenox 30mg Syringe) 30 mg Q24H SQ Last administered on 20:53; Start 09/08/16 at 21:00; Stop 09/09/16 at 08:39; Status DC Enoxaparin Sodium (Lovenox 40mg Syringe) 40 mg Q24H SQ ; Start 09/09/16 at 21:00 Active Scripts Active Reported [diphen/atropine] 2.5 Mg PO PRN QID PRN Prilosec Otc (Omeprazole Magnesium) 20 Mg Tablet.dr 1 Tab PO DAILY Lialda (Mesalamine) 1.2 Gm Tablet.dr 4 Tab PO DAILY06 Tizanidine Hcl 4 Mg Tablet 5 Tab PO QHS Olanzapine 2.5 Mg Tablet 2.5 Mg PO HS Zyrtec (Cetirizine Hcl) 10 Mg Capsule 10 Mg PO DAILY Dhea 50 Mg Tablet (Prasterone (Dhea)/Calcium Carb) 1 Each Tablet 1 Tab PO DAILY Niacin 500 Mg Tablet 500 Mg PO HS Vitamin D3 (Cholecalciferol (Vitamin D3)) 1,000 Unit Capsule 1,000 Unit PO DAILY Vitamin C (Ascorbic Acid) 1,000 Mg Tab.chew 1,000 Mg PO DAILY Imitrex (Sumatriptan Succinate) 100 Mg Tablet 100 Mg PO ONCE PRN Tramadol Hcl 50 Mg Tablet 4 Tab PO BID Zenpep Dr 25,000 Units Capsule (Lipase/Protease/Amylase) 1 Each Capsule.dr 1 Each PO TIDAFTMEAL Vitals/I & O Vital Sign - Last 24 Hours 09/08/16 09/08/16 09/08/16 09/08/16 11:01 11:20 11:55 11:56 Temp 98.1 98.1 Pulse 111 Resp 20 18 18 B/P 159/83 Pulse Ox 100 99 99 99 O2 Delivery Nasal Cannula Nasal Cannula Nasal Cannula Nasal Cannula O2 Flow Rate 1.0 1.0 1.0 09/08/16 09/08/16 09/08/16 09/08/16 12:03 12:26 13:03 15:40 Temp 97.9 97.9 Pulse 107 Resp 18 18 16 B/P 165/97 Pulse Ox 100 O2 Delivery Nasal Cannula Nasal Cannula Nasal Cannula O2 Flow Rate 1.0 1.0 1.0 09/08/16 09/08/16 09/08/16 09/08/16 15:55 16:00 17:09 17:16 Resp 18 18 18 Pulse Ox 100 98 98 96 O2 Delivery Nasal Cannula Nasal Cannula Nasal Cannula Room Air O2 Flow Rate 1.0 1.0 1.0 09/08/16 09/08/16 09/08/16 09/08/16 18:12 19:13 19:24 20:00 Temp 98.2 98.2 Pulse 120 Resp 18 20 B/P 137/79 Pulse Ox 96 96 98 O2 Delivery Room Air Room Air Room Air Nasal Cannula O2 Flow Rate 1.0 09/08/16 09/09/16 09/09/16 09/09/16 23:05 03:08 06:48 07:00 Temp 98.1 97.4 97.9 98.1 97.4 97.9 Pulse 95 93 115 Resp 18 20 18 20 B/P 104/65 102/61 164/84 Pulse Ox 100 100 99 95 O2 Delivery Nasal Cannula Nasal Cannula Nasal Cannula Nasal Cannula O2 Flow Rate 2.0 2.0 1.0 2.0 09/09/16 09/09/16 09/09/16 09/09/16 07:35 08:08 08:46 10:46 Resp 18 Pulse Ox 100 95 O2 Delivery Nasal Cannula Room Air Room Air Nasal Cannula O2 Flow Rate 2.0 2.0 Intake and Output 09/08/16 09/08/16 09/09/16 15:00 23:00 07:00 Intake Total 240 ml 1200 ml Output Total 675 ml 850 ml Balance 240 ml -675 ml 350 ml KARENA VENEGAS MD Sep 09, 2016 10:59
--- NOTE | 2016-09-09 12:49 | PDOC ---
PULMONARY PROGRESS NOTES Subjective feels better, PTX increase 09/08 on water seal s/p right de-cortication with extensive pleural peel removed air leak on one chest tube Vitals Vital Signs Date Time Temp Pulse Resp B/P Pulse Ox O2 Delivery O2 Flow Rate FiO2 09/09/16 12:10 18 95 Nasal Cannula 1.0 09/09/16 11:00 97.4 120 156/87 97.4 Comments ros as above, other sys otherwise neg General: Alert, No acute distress HEENT: Other (nc at perrl, throat nose clear) Lungs: Other (decrease bs) Cardiovascular: S1, S2 Abdomen: Soft, Non-tender, Other (no mass) Neuro Exam: Alert, Oriented, No Focal Findings Extremities: No Edema Skin: Warm Labs Laboratory Tests Test 09/08/16 04:45 White Blood Count 8.4x10^3/uL (4.0-11.0) Red Blood Count 2.38x10^6/uL (3.50-5.40) Hemoglobin 7.2g/dL (12.0-15.5) Hematocrit 21.1% (36.0-47.0) Mean Corpuscular Volume 89fL (79-100) Mean Corpuscular Hemoglobin 30pg (25-35) Mean Corpuscular Hemoglobin Concent 34g/dL (31-37) Red Cell Distribution Width 14.8% (11.5-14.5) Platelet Count 199x10^3/uL (140-400) Neutrophils (%) (Auto) 76% (31-73) Lymphocytes (%) (Auto) 13% (24-48) Monocytes (%) (Auto) 7% (0-9) Eosinophils (%) (Auto) 2% (0-3) Basophils (%) (Auto) 1% (0-3) Neutrophils # (Auto) 6.4x10^3uL (1.8-7.7) Lymphocytes # (Auto) 1.1x10^3/uL (1.0-4.8) Monocytes # (Auto) 0.6x10^3/uL (0.0-1.1) Eosinophils # (Auto) 0.2x10^3/uL (0.0-0.7) Basophils # (Auto) 0.1x10^3/uL (0.0-0.2) Sodium Level 140mmol/L (136-145) Potassium Level 3.4mmol/L (3.5-5.1) Chloride Level 104mmol/L (98-107) Carbon Dioxide Level 28mmol/L (21-32) Anion Gap 8 (6-14) Blood Urea Nitrogen 6mg/dL (7-20) Creatinine 0.7mg/dL (0.6-1.0) Estimated GFR (Cockcroft-Gault) 86.9 BUN/Creatinine Ratio 9 (6-20) Glucose Level 83mg/dL (70-99) Calcium Level 8.1mg/dL (8.5-10.1) Total Bilirubin 0.3mg/dL (0.2-1.0) Aspartate Amino Transf (AST/SGOT) 29U/L (15-37) Alanine Aminotransferase (ALT/SGPT) 32U/L (14-59) Alkaline Phosphatase 65U/L (46-116) Total Protein 6.0g/dL (6.4-8.2) Albumin 1.3g/dL (3.4-5.0) Albumin/Globulin Ratio 0.3 (1.0-1.7) Medications Active Scripts Medications Dose Route/Sig Days Date Category Zyprexa (Olanzapine) 2.5 Mg Tablet 1 Tab PO QHS 01/15/16 Reported Tizanidine Hcl 4 Mg Tablet 4 Mg PO TID PRN 01/14/16 Reported Tramadol Hcl 50 Mg Tablet 50 Mg PO BID PRN 01/14/16 Reported Lialda (Mesalamine) 1.2 Gm Tablet.dr 4 Tab PO DAILY 01/14/16 Reported Comments cxr reviewed, 09/09 tiny right PTX/ unchanged volume loss RLL Impression . 1. Acute hypoxic respiratory failure POA,, secondary to extensive multilobar community-acquired pneumonia/ multiloculated effusion, empyema. 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Dense adhesions of the lung to the chest wall, extremely difficult to create a space. Owing to the patient's sepsis she was very coagulopathic and there was more bleeding than usual. Very friable lung, possible small parenchymal lung tear. 2. chronic obstructive pulmonary disease 3. severe leukocytosis POA. This is probably related to underlying extensive pneumonia and sepsis./ BM aspiration 08/29 , No leukemia 4. Severe protein-calorie malnutrition with an albumin level of 1.4. 5. Normal ejection fraction by echo with a pulmonary artery systolic pressure of 49. Suspect this is secondary to underlying chronic obstructive pulmonary disease. 7. smoker 8. Anemia Plan . 1. Monitor daily cxr/ Did not tolerate water seal. back on suction. resolved air leak on one chest tube 2. follow pleural cultures/ cytology/ emperic PO antibiotic added to to severity of empyema for one week 3. cont chest tube to suction to -30. 4. Bronchodilators. 5. Deep venous thrombosis prophylaxis with scd 6. Stress ulcer prophylaxis. 7. Transfusion prn 8.. pain control / IS 9. d/w HERBER Campbell MD Sep 09, 2016 12:49
--- NOTE | 2016-09-09 14:22 | PDOC ---
Progress Note Subjective Subjective Doing well today. She did not tolerate water seal yesterday as the right lung partially collapsed. Surprisingly air leak this morning has nearly resolved. There is still a prominent swing. No other issues. ROS ROS No nausea No vomiting No pain No rash Vital Sign Vital Signs Vital Signs Date Time Temp Pulse Resp B/P Pulse Ox O2 Delivery O2 Flow Rate FiO2 09/09/16 12:59 18 95 Room Air 1.0 09/09/16 11:00 97.4 120 156/87 97.4 Physical Exam PHYSICAL EXAM GENERAL: NAD, Alert HEENT: PERRL, OC/OP NECK: Supple, no JVD, no LN LUNGS: Clear HEART: S1S2, no gallop, no murmur ABD: Soft, NT, no organomegaly, no rebound EXT: No edema, no cyanosis POULTRY PICKER: Alert, oriented x 3, no focal neurologic deficit SKIN: No rash IV: ok Objective Assessment POD#4 s/p R VATS, drainage of empyema and pulmonary decortication. Doing very well. On room air. Minimal drain output and air leak has nearly resolved. He still has a prominent swing in one of the tubes. Normotensive and in sinus rhythm. Plan Plan of Care We will remove one chest tube today. We'll keep remaining chest tube to suction for the next 24-48 hours. Since air leak has nearly resolved, I anticipate being able to remove her tube early next week Aggressive incentive spirometry, pulmonary physiotherapy and ambulation. Lovenox for DVT prophylaxis. YOVANI WHALEY MD Sep 09, 2016 14:22
[2016-09-09 15:00] VITALS: BP 143/87
[2016-09-09 19:30] VITALS: BP 174/94
[2016-09-09] MEDS: ENOXAPARIN 40 MG/0.4 ML DISP.SYRIN. SQ SCH (20:59)
[2016-09-09] MEDS: OLANZAPINE 2.5 MG TABLET PO SCH (20:59)
[2016-09-09] MEDS: tiZANidine 4 MG TABLET. PO SCH (20:59)
[2016-09-09] MEDS: NIACIN ER 500 MG TABLET.ER PO SCH (20:59)
[2016-09-09 23:31] VITALS: BP 96/53
[2016-09-10] MEDS: OXYCODONE IR 5 MG TABLET. PO PRN ×4 (01:44→23:49)
[2016-09-10 03:55] VITALS: BP 156/87
[2016-09-10] MEDS: MESALAMINE 1.2 GM TABLET.DR PO SCH (05:02)
[2016-09-10] MEDS: SUMATRIPTAN SUCCINATE 100 MG TABLET. PO PRN (05:04)
[2016-09-10] MEDS: ALBUTEROL SULFATE 2.5 MG/3 ML NEBU. NEB SCH ×4 (07:27→19:15)
[2016-09-10 07:51] VITALS: BP 154/85
[2016-09-10] MEDS: ASCORBIC ACID 500 MG TABLET PO SCH (08:20)
[2016-09-10] MEDS: LIPASE/PROTEAS/AMYLASE 5/17/27 CAPSULE.DR. PO SCH ×3 (08:21→16:10)
[2016-09-10] MEDS: LACTOBACILLUS ACIDOPH & BULGAR 1 TABLET. PO SCH ×3 (08:21→16:10)
[2016-09-10] MEDS: CEFPODOXIME PROXETIL 100 MG TABLET PO SCH ×2 (08:21→20:58)
[2016-09-10] MEDS: CHOLECALCIFEROL (VITAMIN D3) 1,000 UNIT TABLET PO SCH (08:21)
[2016-09-10] MEDS: CETIRIZINE HCL 10 MG TABLET PO SCH (08:22)
[2016-09-10] MEDS: PANTOPRAZOLE 40 MG TABLET. PO SCH (08:22)
[2016-09-10] MEDS: FENTANYL PF 100 MCG/2 ML VIAL. IV PRN ×5 (08:30→21:00)
--- NOTE | 2016-09-10 08:57 | RAD ---
EXAM: Chest, single view. HISTORY: Empyema. COMPARISON: 09/09/2016. FINDINGS: A frontal view of the chest is obtained. There is a stable small right hydropneumothorax. There is a right apical thoracostomy tube unchanged in position. There is right pleural thickening or loculated pleural fluid. There is right middle and lower lobe predominant infiltrate. There is right hemithorax volume loss with rightward mediastinal shift. There is a right PICC with the tip in the superior cava. There are healed rib fractures. IMPRESSION: 1. Stable small loculated right hydropneumothorax and right thoracostomy tube positioning. 2. Stable diffuse right lung infiltrate with volume loss.
[2016-09-10 10:24] VITALS: BP 159/96
--- NOTE | 2016-09-10 11:08 | PDOC ---
PULMONARY PROGRESS NOTES Subjective feels better, s/p right de-cortication with extensive pleural peel removed air leak on one chest tube, other chest tube removed 09/09 Vitals Vital Signs Date Time Temp Pulse Resp B/P Pulse Ox O2 Delivery O2 Flow Rate FiO2 09/10/16 10:47 24 96 Room Air 2.0 09/10/16 10:24 98.3 121 159/96 98.3 Comments ros as above, other sys otherwise neg General: Alert, No acute distress HEENT: Other (nc at perrl, throat nose clear) Lungs: Other (decrease bs) Cardiovascular: S1, S2 Abdomen: Soft, Non-tender, Other (no mass) Neuro Exam: Alert, Oriented, No Focal Findings Extremities: No Edema Skin: Warm Medications Active Scripts Medications Dose Route/Sig Days Date Category Zyprexa (Olanzapine) 2.5 Mg Tablet 1 Tab PO QHS 01/15/16 Reported Tizanidine Hcl 4 Mg Tablet 4 Mg PO TID PRN 01/14/16 Reported Tramadol Hcl 50 Mg Tablet 50 Mg PO BID PRN 01/14/16 Reported Lialda (Mesalamine) 1.2 Gm Tablet.dr 4 Tab PO DAILY 01/14/16 Reported Comments cxr reviewed, 09/09 tiny right PTX/ unchanged volume loss RLL Impression . 1. Acute hypoxic respiratory failure POA,, secondary to extensive multilobar community-acquired pneumonia/ multiloculated effusion, empyema. 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Dense adhesions of the lung to the chest wall, extremely difficult to create a space. Owing to the patient's sepsis she was very coagulopathic and there was more bleeding than usual. Very friable lung, possible small parenchymal lung tear. 2. chronic obstructive pulmonary disease 3. severe leukocytosis POA. This is probably related to underlying extensive pneumonia and sepsis./ BM aspiration 08/29 , No leukemia 4. Severe protein-calorie malnutrition with an albumin level of 1.4. 5. Normal ejection fraction by echo with a pulmonary artery systolic pressure of 49. Suspect this is secondary to underlying chronic obstructive pulmonary disease. 7. smoker 8. Anemia Plan . 1. Monitor daily cxr/ / small PTX persist with air leak 2. follow pleural cultures/ cytology/ emperic PO antibiotic added to to severity of empyema for one week 3. cont chest tube to suction to -30. 4. Bronchodilators. 5. Deep venous thrombosis prophylaxis with scd 6. Stress ulcer prophylaxis. 7. Transfusion prn 8.. pain control / IS 9. d/w HERBER Campbell MD Sep 10, 2016 11:08
[2016-09-10] MEDS ORDERED: FENTANYL PF 100 MCG/2 ML VIAL. IV ONE (13:15)
--- NOTE | 2016-09-10 13:18 | PDOC ---
PROGRESS NOTES Chief Complaint Chief Complaint 1. PNA: multilobar. w/ empyema 2. Empyema: s/p VATS, w/ chest tubes draining 3. COPD exacerbation: improving 4. Sepsis: resolved 5. HTN, tachycardia: vitals improved 6. BP at low normal, prob influenced by IV narcotics. IVF boluses PRN 7. Ulcerative Colitis: on mesalamine, pancreatic enzymes, macrobiotics 8. Depression: on zyprexa 9. Smoker: nicotine patch 10. Migraine: imitrex PRN 11. chest pain: musculoskeletal from chest tubes fentanyl, Oxy PO PRN History of Present Illness History of Present Illness pain worse today, HR up this PM extra dose fentanyl MS contin stopped still didn't sleep well, would like additional dose pain 02/20 doing better s/p VATS, drainage of empyema and pulmonary decortication. 1 chest tube left, 1 stopped yesterday Vitals Vitals Vital Signs Date Time Temp Pulse Resp B/P Pulse Ox O2 Delivery O2 Flow Rate FiO2 09/10/16 11:45 24 95 Room Air 2.0 09/10/16 10:24 98.3 121 159/96 98.3 Physical Exam Physical Exam GENERAL: NAD, Alert HEENT: PERRL, OC/OP NECK: Supple, no JVD, no LN LUNGS: Clear HEART: S1S2, no gallop, no murmur ABD: Soft, NT, no organomegaly, no rebound EXT: No edema, no cyanosis HEARING AID SPECIALIST: Alert, oriented x 3, no focal neurologic deficit SKIN: No rash IV: ok General: Alert, Oriented X3, No acute distress Heart: Normal S1, Normal S2, No murmurs, Other Lungs: Other (decrease bs) Abdomen: Soft, No tenderness Extremities: No edema Skin: Other Review of Systems Review of Systems no n.v.d Assessment and Plan Assessmemt and Plan Problems Medical Problems: (1) CAP (community acquired pneumonia) Status: Acute (2) Empyema of lung Status: Acute Problems: Comment Review of Relevant I have reviewed the following items randi (where applicable) has been applied. Labs Microbiology 09/05/16 Anaerobic/Aerobic Culture - Preliminary, Resulted 09/05/16 Anaerobic Culture Result 1 (BRUCE) - Preliminary, Resulted 09/05/16 Aerobic Culture - Final, Resulted 09/05/16 Aerobic Culture Result 1 (BRUCE) - Final, Resulted 09/05/16 Anaerobic/Aerobic Culture - Preliminary, Resulted 09/05/16 Anaerobic Culture Result 1 (BRUCE) - Preliminary, Resulted 09/05/16 Aerobic Culture - Final, Resulted 09/05/16 Aerobic Culture Result 1 (BRUCE) - Final, Resulted Medications Current Medications Acetaminophen (Tylenol) 325 mg PRN Q6HRS PRN PO MILD PAIN / TEMP Last administered on 08/26/16 08:29; Start 08/25/16 at 12:45 Acetaminophen/ Hydrocodone Bitart (Lortab 5/325) 1 tab PRN Q6HRS PRN PO MODERATE PAIN Last administered on 08/27/16 02:06; Start 08/25/16 at 12:45; Stop 08/29/16 at 16:41; Status DC Hydralazine HCl (Apresoline) 10 mg PRN Q4HRS PRN IVP ELEVATED BP, SEE COMMENTS Last administered on 08/26/16 05:07; Start 08/25/16 at 12:45 Ondansetron HCl (Zofran) 4 mg PRN Q8HRS PRN IV NAUSEA/VOMITING Last administered on 08/25/16 15:42; Start 08/25/16 at 12:45; Stop 08/27/16 at 08:44 ; Status DC Albuterol Sulfate 2.5 mg 2.5 mg PRN Q4HRS PRN NEB SHORTNESS OF BREATH; Start at 12:45 Piperacillin Sod/ Tazobactam Sod 3.375 gm/Sodium Chloride 50 ml @ 100 mls/hr Q6HRS IV Last administered on 09/08/16 06:00; Start 08/25/16 at 13:00; Stop at 07:53; Status DC Linezolid (Zyvox Premix) 300 ml @ 300 mls/hr Q12HR IV Last administered on 21:39; Start 08/25/16 at 14:00; Stop 09/08/16 at 07:52; Status DC Piperacillin Sod/ Tazobactam Sod 1 each 1 each PRN DAILY PRN MC SEE COMMENTS; Start 08/25/16 at 13:45; Stop 08/27/16 at 12:41; Status DC Levofloxacin/ Dextrose (LEVAQUIN 750mg PREMIX) 150 ml @ 100 mls/hr Q24H IV Last administered on 08/28/16 13:51; Start 08/25/16 at 14:00; Stop 08/28/16 at 14:37; Status DC Lidocaine/Sodium Bicarbonate (Buffered Lidocaine 1%) 20 ml STK-MED ONCE IJ ; Start 08/25/16 at 14:00; Stop 08/25/16 at 14:01; Status DC Lidocaine/Sodium Bicarbonate (Buffered Lidocaine 1%) 5 ml 1X ONCE IJ Last administered on 08/25/16 14:59; Start 08/25/16 at 15:00; Stop 08/25/16 at 15:01 ; Status DC Info (Do NOT chart on this placeholder) 1 each 1X ONCE MC ; Start 08/25/16 at 17:00; Stop 08/25/16 at 17:01; Status UNV Pneumococcal Polyvalent Vaccine (Do NOT chart on this placeholder) 1 each 1X ONCE MC ; Start 08/25/16 at 17:00; Stop 08/25/16 at 17:01; Status UNV Influenza Virus Vaccine Quadrival (Fluarix Quad [id number] Syringe) 0.5 ml ONCE ONCE VAX IM ; Start 08/26/16 at 09:00; Stop 08/26/16 at 09:01; Status DC Pneumococcal Polyvalent Vaccine (Pneumovax 23) 0.5 ml ONCE ONCE VAX IM ; Start 08/26/16 at 09:00; Stop 08/26/16 at 09:01; Status DC Enoxaparin Sodium (Lovenox 40mg Syringe) 40 mg Q24H SQ Last administered on 08:19; Start 08/26/16 at 09:00; Stop 08/29/16 at 11:45; Status DC Fentanyl Citrate (Fentanyl 2ml Vial) 25 mcg PRN Q4HRS PRN IV PAIN Last administered on 08/27/16 06:13; Start 08/26/16 at 08:30; Stop 08/29/16 at 15:07 ; Status DC Potassium Chloride (Klor-Con) 40 meq 1X ONCE PO Last administered on 11:24; Start 08/26/16 at 10:45; Stop 08/26/16 at 10:49; Status DC Mesalamine (Lialda) 4.8 gm DAILY06 PO Last administered on 09/10/16 05:02; Start 08/26/16 at 13:30 Olanzapine (Zyprexa) 2.5 mg HS PO Last administered on 09/09/16 20:59; Start 08/26/16 at 21:00 Sumatriptan Succinate (Imitrex) 100 mg PRN Q2HR PRN PO MIGRAINE HEADACHE Last administered on 09/10/16 05:04; Start 08/26/16 at 13:30 Tizanidine HCl (Zanaflex) 4 mg QHS PO Last administered on 08/26/16 19:57; Start 08/26/16 at 21:00; Stop 08/26/16 at 21:00; Status DC Tramadol HCl (Ultram) 50 mg BID PO Last administered on 08/31/16 07:48; Start 08/26/16 at 14:00; Stop 08/31/16 at 15:54; Status DC Ascorbic Acid (Vitamin C) 1,000 mg DAILY PO Last administered on 09/10/16 08: 20; Start 08/27/16 at 09:00 Amylase/Lipase/ Protease (Zenpep 5,000) 5 cap TIDWMEALS PO Last administered on 09/10/16 12:26; Start 08/26/16 at 17:00 Niacin (Slo-Niacin) 500 mg QHS PO Last administered on 09/09/16 20:59; Start 08/26/16 at 21:00 Pantoprazole Sodium (Protonix) 40 mg DAILYAC PO Last administered on 09/10/16 08:22; Start 08/26/16 at 14:00 Non-Formulary Medication 1 tab DAILY PO ; Start 08/27/16 at 09:00; Status UNV Diphenoxylate HCl/ Atropine (Lomotil) 1 tab PRN QID PRN PO DIARRHEA Last administered on 09/03/16 17:27; Start 08/26/16 at 13:45 Tizanidine HCl (Zanaflex) 20 mg QHS PO Last administered on 09/09/16 20:59; Start 08/26/16 at 21:00 Acetaminophen/ Hydrocodone Bitart (Lortab 5/325) 2 tab PRN Q6HRS PRN PO SEVERE PAIN Last administered on 08/29/16 10:47; Start 08/27/16 at 04:45; Stop at 16:41; Status DC Ondansetron HCl (Zofran) 4 mg PRN Q6HRS PRN IV NAUSEA/VOMITING Last administered on 09/05/16 23:16; Start 08/27/16 at 08:42 Vancomycin HCl 125 mg [id number] PO Last administered on 08/28/16 20:54; Start at 16:00; Stop 08/29/16 at 10:24; Status DC Lactobacillus Acidophilus 1 tab 1 tab TIDWMEALS PO Last administered on 12:24; Start 08/27/16 at 17:00 Sodium Chloride (Iv Sodium Chloride 0.9% 500ml Bag) 500 ml @ 500 mls/hr 1X ONCE IV Last administered on 08/28/16 00:52; Start 08/28/16 at 01:00; Stop at 01:59; Status DC Nicotine (Nicoderm Cq 21mg) 1 patch PRN DAILY PRN TD SMOKING CESSATION; Start 08/28/16 at 09:30 Cetirizine HCl (Zyrtec) 10 mg DAILY PO Last administered on 09/10/16 08:22; Start 08/28/16 at 10:00 Vitamin D (Vitamin D3) 1,000 unit DAILY PO Last administered on 09/10/16 08:21 ; Start 08/28/16 at 10:00 Iohexol (Omnipaque 300 Mg/ml) 75 ml 1X ONCE IV Last administered on 08/28/16 10:53; Start 08/28/16 at 10:15; Stop 08/28/16 at 10:16; Status DC Info (Do NOT chart on this entry -- for MONITORING) 1 each PRN DAILY PRN MC SEE COMMENTS; Start 08/28/16 at 10:00; Stop 08/30/16 at 09:59; Status DC Potassium Chloride (Klor-Con) 40 meq 1X ONCE PO Last administered on 13:52; Start 08/28/16 at 13:00; Stop 08/28/16 at 13:01; Status DC Lidocaine/Sodium Bicarbonate (Buffered Lidocaine 1%) 20 ml STK-MED ONCE IJ ; Start 08/29/16 at 08:36; Stop 08/29/16 at 08:37; Status DC Naloxone HCl (Narcan) 0.4 mg STK-MED ONCE .ROUTE ; Start 08/29/16 at 08:37; Stop 08/29/16 at 08:38; Status DC Flumazenil (Romazicon) 0.5 mg STK-MED ONCE IV ; Start 08/29/16 at 08:37; Stop at 08:38; Status DC Midazolam HCl (Versed) 5 mg STK-MED ONCE .ROUTE ; Start 08/29/16 at 08:37; Stop 08/29/16 at 08:38; Status DC Fentanyl Citrate (Fentanyl 5ml Vial) 250 mcg STK-MED ONCE .ROUTE ; Start at 08:37; Stop 08/29/16 at 08:38; Status DC Lidocaine/Sodium Bicarbonate (Buffered Lidocaine 1%) 6 ml 1X ONCE IJ Last administered on 08/29/16 09:09; Start 08/29/16 at 09:15; Stop 08/29/16 at 09:16 ; Status DC Midazolam HCl (Versed) 2 mg 1X ONCE IV Last administered on 08/29/16 09:08; Start 08/29/16 at 09:15; Stop 08/29/16 at 09:16; Status DC Fentanyl Citrate (Fentanyl 5ml Vial) 100 mcg 1X ONCE IV Last administered on 09:08; Start 08/29/16 at 09:15; Stop 08/29/16 at 09:16; Status DC Enoxaparin Sodium (Lovenox 40mg Syringe) 40 mg Q24H SQ Last administered on 16:01; Start 08/29/16 at 16:00; Stop 08/31/16 at 10:23; Status DC Acetaminophen/ Hydrocodone Bitart (Lortab 5/325) 1 tab PRN Q4HRS PRN PO MODERATE PAIN; Start 08/29/16 at 16:45; Stop 08/31/16 at 15:54; Status DC Acetaminophen/ Hydrocodone Bitart (Lortab 5/325) 2 tab PRN Q4HRS PRN PO SEVERE PAIN Last administered on 08/31/16 15:14; Start 08/29/16 at 16:45; Stop at 15:54; Status DC Lidocaine/Sodium Bicarbonate (Buffered Lidocaine 1%) 20 ml STK-MED ONCE IJ ; Start 08/30/16 at 13:57; Stop 08/30/16 at 13:58; Status DC Midazolam HCl (Versed) 2 mg STK-MED ONCE .ROUTE ; Start 08/30/16 at 14:22; Stop 08/30/16 at 14:23; Status DC Fentanyl Citrate (Fentanyl 2ml Vial) 100 mcg STK-MED ONCE .ROUTE ; Start at 14:22; Stop 08/30/16 at 14:23; Status DC Lidocaine/Sodium Bicarbonate (Buffered Lidocaine 1%) 4 ml 1X ONCE IJ Last administered on 08/30/16t 15:08; Start 08/30/16 at 14:50; Stop 08/30/16 at 15:04 ; Status DC Midazolam HCl (Versed) 1 mg 1X ONCE IV Last administered on 08/30/16t 15:09; Start 08/30/16 at 14:45; Stop 08/30/16 at 15:04; Status DC Fentanyl Citrate (Fentanyl 2ml Vial) 50 mcg 1X ONCE IV Last administered on t 15:09; Start 08/30/16 at 14:45; Stop 08/30/16 at 15:05; Status DC Metoprolol Tartrate 25 mg 25 mg BID PO Last administered on 08/30/16t 21:44; Start 08/30/16 at 21:00; Stop 08/31/16 at 17:09; Status DC Alteplase, Recombinant 5 mg/ Sterile Water 50 ml @ 5 mls/hr 1X ONCE IV ; Start 08/31/16 at 10:30; Stop 08/31/16 at 15:27; Status DC Alteplase, Recombinant 5 mg/ Sterile Water 50 ml @ 5 mls/hr 1X ONCE IV ; Start 08/31/16 at 10:45; Stop 08/31/16 at 15:27; Status DC Alteplase, Recombinant 5 mg/ Sterile Water 50 ml @ 5 mls/hr 1X ONCE INT CAT Last administered on 08/31/16t 12:40; Start 08/31/16 at 15:27; Stop 08/31/16 at 20:29; Status DC Alteplase, Recombinant/ Sterile Water (Cathflo) 50 ml @ 5 mls/hr 1X ONCE INT CAT Last administered on 08/31/16 12:40; Start 08/31/16 at 15:27; Stop at 20:44; Status DC Oxycodone HCl (Roxicodone) 5 mg PRN Q3HRS PRN PO MODERATE - SEVERE PAIN Last administered on 09/09/16 01:39; Start 08/31/16 at 16:00 Morphine Sulfate 2 mg PRN Q6HRS PRN IV PAIN; Start 08/31/16 at 16:00; Stop at 18:07; Status DC Oxycodone HCl (Roxicodone) 10 mg PRN Q3HRS PRN PO MODERATE - SEVERE PAIN Last administered on 09/10/16 10:47; Start 08/31/16 at 16:00 Fentanyl Citrate (Fentanyl 2ml Vial) 50 mcg PRN Q2HR PRN IV PAIN SEV Last administered on 09/08/16 09:08; Start 08/31/16 at 18:15; Stop 09/08/16 at 10:32 ; Status DC Morphine Sulfate 2 mg 2 mg ONCE ONCE IV Last administered on 08/31/16 18:05; Start 08/31/16 at 20:45; Stop 08/31/16 at 20:46; Status DC Sodium Chloride (Iv Sodium Chloride 0.9% 500ml Bag) 500 ml @ 500 mls/hr 1X ONCE IV Last administered on 09/01/16 06:30; Start 09/01/16 at 06:30; Stop at 07:29; Status DC Alteplase, Recombinant (Cathflo) 2 mg 1X ONCE INT CAT Last administered on 06:35; Start 09/01/16 at 07:00; Stop 09/01/16 at 07:01; Status DC Albuterol Sulfate 2.5 mg 2.5 mg RTQID NEB Last administered on 09/10/16 11:22 ; Start 09/01/16 at 12:00 Sodium Chloride 1,000 ml @ 1,000 mls/hr 1X ONCE IV Last administered on 12:09; Start 09/01/16 at 11:45; Stop 09/01/16 at 12:44; Status DC Alteplase, Recombinant 5 mg/ Sterile Water 50 ml @ 5 mls/hr 1X ONCE INT CAT Last administered on 09/01/16 12:30; Start 09/01/16 at 12:30; Stop 09/01/16 at 22:29; Status DC Alteplase, Recombinant/ Sterile Water (Cathflo) 50 ml @ 5 mls/hr 1X ONCE INT CAT Last administered on 09/01/16 12:30; Start 09/01/16 at 12:30; Stop at 22:29; Status DC Alteplase, Recombinant 2 mg 2 mg 1X ONCE INT CAT Last administered on 15:18; Start 09/01/16 at 13:00; Stop 09/01/16 at 13:01; Status DC Sodium Chloride (Iv Sodium Chloride 0.9% 1000ml Bag) 1,000 ml @ 1,000 mls/hr 1X ONCE IV Last administered on 09/01/16 23:45; Start 09/01/16 at 23:45; Stop 09/02/16 at 00:44; Status DC Fentanyl Citrate (Fentanyl 2ml Vial) 50 mcg 1X ONCE IV Last administered on 15:30; Start 09/03/16 at 15:30; Stop 09/03/16 at 15:35; Status DC Bupivacaine HCl (Sensorcaine Mpf 0.5%) 30 ml STK-MED ONCE .ROUTE ; Start at 12:12; Stop 09/05/16 at 12:13; Status DC Lidocaine HCl 20 ml STK-MED ONCE .ROUTE ; Start 09/05/16 at 12:13; Stop at 12:14; Status DC Cellulose 1 each STK-MED ONCE .ROUTE ; Start 09/05/16 at 12:13; Stop 09/05/16 at 12:14; Status DC Lidocaine HCl 100 mg 100 mg STK-MED ONCE .ROUTE ; Start 09/05/16 at 13:16; Stop 09/05/16 at 13:17; Status DC Propofol (Diprivan) 100 ml @ As Directed STK-MED ONCE IV ; Start 09/05/16 at 13 :16; Stop 09/05/16 at 13:17; Status DC Fentanyl Citrate (Fentanyl 2ml Vial) 100 mcg STK-MED ONCE .ROUTE ; Start at 13:16; Stop 09/05/16 at 13:17; Status DC Rocuronium [place] (Zemuron) 50 mg STK-MED ONCE .ROUTE ; Start 09/05/16 at 13:16 ; Stop 09/05/16 at 13:17; Status DC Lidocaine HCl 1 ml 1 ml STK-MED ONCE .ROUTE ; Start 09/05/16 at 13:20; Stop at 13:21; Status DC Lactated Ringer's (Iv Lactated Ringers) 1,000 ml @ 100 mls/hr Q10H IV Last administered on 09/06/16t 06:22; Start 09/05/16 at 14:15; Stop 09/06/16 at 18:30 ; Status DC Lidocaine HCl (Xylocaine-Mpf 1% Vial) 2 ml 1X ONCE INJ Last administered on t 13:35; Start 09/05/16 at 14:30; Stop 09/05/16 at 14:31; Status DC Dexamethasone Sodium Phosphate (Decadron) 20 mg STK-MED ONCE .ROUTE ; Start at 14:49; Stop 09/05/16 at 14:50; Status DC Sevoflurane (Ultane) 90 ml STK-MED ONCE IH ; Start 09/05/16 at 14:49; Stop 09/05 at 14:50; Status DC Fentanyl Citrate (Fentanyl 2ml Vial) 100 mcg STK-MED ONCE .ROUTE ; Start at 15:07; Stop 09/05/16 at 15:08; Status DC Metoprolol Tartrate (Lopressor) 5 mg STK-MED ONCE .ROUTE ; Start 09/05/16 at 15: 09; Stop 09/05/16 at 15:10; Status DC Ondansetron HCl (Zofran) 4 mg STK-MED ONCE .ROUTE ; Start 09/05/16 at 15:23; Stop 09/05/16 at 15:24; Status DC Glycopyrrolate (Robinul) 1 mg STK-MED ONCE .ROUTE ; Start 09/05/16 at 15:23; Stop 09/05/16 at 15:24; Status DC Neostigmine Methylsulfate 5 mg STK-MED ONCE .ROUTE ; Start 09/05/16 at 15:23; Stop 09/05/16 at 15:24; Status DC Rocuronium [place] (Zemuron) 50 mg STK-MED ONCE .ROUTE ; Start 09/05/16 at 15:24 ; Stop 09/05/16 at 15:25; Status DC Ondansetron HCl (Zofran) 4 mg PRN Q6HRS PRN IV Nausea; Start 09/05/16 at 17:15 ; Stop 09/05/16 at 19:00; Status DC Fentanyl Citrate (Fentanyl 2ml Vial) 25 mcg PRN Q5MIN PRN IV MILD PAIN; Start 09/05/16 at 17:15; Stop 09/05/16 at 19:00; Status DC Fentanyl Citrate (Fentanyl 2ml Vial) 50 mcg PRN Q5MIN PRN IV MODERATE PAIN; Start 09/05/16 at 17:15; Stop 09/05/16 at 19:00; Status DC Morphine Sulfate 1 mg 1 mg PRN Q10MIN PRN IV SEVERE PAIN; Start 09/05/16 at 17: 15; Stop 09/05/16 at 19:00; Status DC Lactated Ringer's (Iv Lactated Ringers) 1,000 ml @ 0 mls/hr Q0M IV ; Start at 17:06; Stop 09/05/16 at 19:00; Status DC Lidocaine HCl 2 ml 1X PRN PRN ID IV START; Start 09/05/16 at 17:15; Stop at 19:00; Status DC Hydromorphone HCl (Dilaudid) 0.5 mg PRN Q10MIN PRN IV SEV PAIN,Second choice; Start 09/05/16 at 17:15; Stop 09/05/16 at 19:00; Status DC Prochlorperazine Edisylate (Compazine) 5 mg PACU PRN PRN IV NAUSEA; Start 09/05 at 17:15; Stop 09/05/16 at 19:00; Status DC Phenylephrine HCl (Fortino-Synephrine Inj) 10 mg STK-MED ONCE .ROUTE ; Start at 17:37; Stop 09/05/16 at 17:38; Status DC Sodium Bicarbonate 50 meq 50 meq STK-MED ONCE .ROUTE ; Start 09/05/16 at 17:58; Stop 09/05/16 at 17:59; Status DC Lactated Ringer's 500 ml @ 75 mls/hr 1X ONCE IV Last administered on 22:02; Start 09/05/16 at 21:30; Stop 09/06/16 at 04:09; Status DC Sodium Chloride (Iv Sodium Chloride 0.9% 500ml Bag) 500 ml @ 500 mls/hr 1X ONCE IV Last administered on 09/07/16 00:17; Start 09/07/16 at 00:00; Stop at 00:59; Status DC Fentanyl Citrate (Fentanyl 2ml Vial) 75 mcg PRN Q2HR PRN IV PAIN SEV Last administered on 09/10/16 10:44; Start 09/08/16 at 11:00 Morphine Sulfate (Ms Contin) 15 mg BID PO Last administered on 09/09/16 08:46 ; Start 09/08/16 at 11:00; Stop 09/09/16 at 17:13; Status DC Cefpodoxime Proxetil (Vantin) 100 mg BID PO Last administered on 09/10/16 08: 21; Start 09/08/16 at 14:00 Enoxaparin Sodium (Lovenox 30mg Syringe) 30 mg Q24H SQ Last administered on 20:53; Start 09/08/16 at 21:00; Stop 09/09/16 at 08:39; Status DC Enoxaparin Sodium (Lovenox 40mg Syringe) 40 mg Q24H SQ Last administered on 20:59; Start 09/09/16 at 21:00 Fentanyl Citrate (Fentanyl 2ml Vial) 100 mcg 1X ONCE IV ; Start 09/10/16 at 13: 15; Stop 09/10/16 at 13:16; Status DC Potassium Chloride (Klor-Con) 20 meq 1X ONCE PO ; Start 09/10/16 at 13:30; Stop 09/10/16 at 13:31 Active Scripts Active Reported [diphen/atropine] 2.5 Mg PO PRN QID PRN Prilosec Otc (Omeprazole Magnesium) 20 Mg Tablet.dr 1 Tab PO DAILY Lialda (Mesalamine) 1.2 Gm Tablet.dr 4 Tab PO DAILY06 Tizanidine Hcl 4 Mg Tablet 5 Tab PO QHS Olanzapine 2.5 Mg Tablet 2.5 Mg PO HS Zyrtec (Cetirizine Hcl) 10 Mg Capsule 10 Mg PO DAILY Dhea 50 Mg Tablet (Prasterone (Dhea)/Calcium Carb) 1 Each Tablet 1 Tab PO DAILY Niacin 500 Mg Tablet 500 Mg PO HS Vitamin D3 (Cholecalciferol (Vitamin D3)) 1,000 Unit Capsule 1,000 Unit PO DAILY Vitamin C (Ascorbic Acid) 1,000 Mg Tab.chew 1,000 Mg PO DAILY Imitrex (Sumatriptan Succinate) 100 Mg Tablet 100 Mg PO ONCE PRN Tramadol Hcl 50 Mg Tablet 4 Tab PO BID Zenpep 25,000 Units Capsule (Lipase/Protease/Amylase) 1 Each Capsule.dr 1 Each PO TIDAFTMEAL Vitals/I & O Vital Sign - Last 24 Hours 09/09/16 09/09/16 09/09/16 09/09/16 14:56 15:00 16:09 17:37 Temp 97.6 97.6 Pulse 121 Resp 18 20 18 B/P 143/87 Pulse Ox 95 96 100 100 O2 Delivery Room Air Nasal Cannula Nasal Cannula Room Air O2 Flow Rate 1.5 2.0 2.0 2.0 09/09/16 09/09/16 09/09/16 09/09/16 19:28 19:30 19:39 19:54 Temp 98.5 98.5 Pulse 114 Resp 20 21 B/P 174/94 Pulse Ox 95 97 O2 Delivery Nasal Cannula Nasal Cannula Room Air Nasal Cannula O2 Flow Rate 2.0 2.0 2.0 09/09/16 09/09/16 09/10/16 09/10/16 21:05 23:31 01:44 03:55 Temp 98.2 98.6 98.2 98.6 Pulse 98 120 Resp 20 22 18 22 B/P 96/53 156/87 Pulse Ox 96 95 O2 Delivery Nasal Cannula Nasal Cannula Nasal Cannula Nasal Cannula O2 Flow Rate 2.0 2.0 2.0 2.0 09/10/16 09/10/16 09/10/16 09/10/16 05:02 07:28 07:51 08:00 Temp 98.0 98.0 Pulse 122 Resp 22 23 B/P 154/85 Pulse Ox 96 95 O2 Delivery Nasal Cannula Nasal Cannula Nasal Cannula Room Air O2 Flow Rate 2.0 2.0 2.0 2.0 09/10/16 09/10/16 09/10/16 09/10/16 08:30 10:24 10:44 10:47 Temp 98.3 98.3 Pulse 121 Resp 24 21 24 24 B/P 159/96 Pulse Ox 95 96 96 96 O2 Delivery Room Air Nasal Cannula Room Air Room Air O2 Flow Rate 2.0 2.0 2.0 2.0 09/10/16 09/10/16 09/10/16 11:10 11:24 11:45 Resp 24 24 Pulse Ox 95 95 95 O2 Delivery Room Air Nasal Cannula Room Air O2 Flow Rate 2.0 2.0 2.0 Intake and Output 09/09/16 09/09/16 09/10/16 15:00 23:00 07:00 Intake Total 60 ml 500 ml 200 ml Output Total 950 ml 230 ml 1730 ml Balance -890 ml 270 ml -1530 ml KARENA VENEGAS MD Sep 10, 2016 13:18
[2016-09-10] MEDS ORDERED: POTASSIUM CHLORIDE 20 MEQ TABLET.ER. PO ONE (13:30)
--- NOTE | 2016-09-10 14:06 | PDOC ---
Progress Note Subjective Subjective Doing well. No other issues. Small air leak persists. ROS ROS No nausea No vomiting No pain No rash Vital Sign Vital Signs Vital Signs Date Time Temp Pulse Resp B/P Pulse Ox O2 Delivery O2 Flow Rate FiO2 09/10/16 13:41 22 95 Room Air 2.0 09/10/16 10:24 98.3 121 159/96 98.3 Physical Exam PHYSICAL EXAM GENERAL: NAD, Alert HEENT: PERRL, OC/OP NECK: Supple, no JVD, no LN LUNGS: Clear HEART: S1S2, no gallop, no murmur ABD: Soft, NT, no organomegaly, no rebound EXT: No edema, no cyanosis [employer]USTRIAL SALES REPRESENTATIVE: Alert, oriented x 3, no focal neurologic deficit SKIN: No rash IV: ok Objective Assessment POD#5 s/p R VATS, drainage of empyema and pulmonary decortication. Doing well. On room air. Small air leak persists. Plan Plan of Care We will remove one chest tube today. Keep chest tube to suction for the next 48 hours. Since air leak is improving , I anticipate being able to remove her tube early next week Aggressive incentive spirometry, pulmonary physiotherapy and ambulation. Lovenox for DVT prophylaxis. YOVANI WHALEY MD Sep 10, 2016 14:06
[2016-09-10 15:00] VITALS: BP 130/79
[2016-09-10 19:30] VITALS: BP 135/77
[2016-09-10] MEDS: OLANZAPINE 2.5 MG TABLET PO SCH (20:57)
[2016-09-10] MEDS: NIACIN ER 500 MG TABLET.ER PO SCH (20:57)
[2016-09-10] MEDS: tiZANidine 4 MG TABLET. PO SCH (20:58)
[2016-09-10] MEDS: ENOXAPARIN 40 MG/0.4 ML DISP.SYRIN. SQ SCH (20:59)
[2016-09-10 23:00] VITALS: BP 101/58
[2016-09-11 03:11] VITALS: BP 143/78
[2016-09-11] MEDS: FENTANYL PF 100 MCG/2 ML VIAL. IV PRN ×9 (03:11→23:51)
[2016-09-11] MEDS: MESALAMINE 1.2 GM TABLET.DR PO SCH (06:09)
[2016-09-11] MEDS: SUMATRIPTAN SUCCINATE 100 MG TABLET. PO PRN ×2 (06:16→13:37)
[2016-09-11] MEDS: ALBUTEROL SULFATE 2.5 MG/3 ML NEBU. NEB SCH ×4 (07:35→19:22)
[2016-09-11 07:58] VITALS: BP 117/80
[2016-09-11] MEDS: CHOLECALCIFEROL (VITAMIN D3) 1,000 UNIT TABLET PO SCH (08:20)
[2016-09-11] MEDS: CETIRIZINE HCL 10 MG TABLET PO SCH (08:20)
[2016-09-11] MEDS: LIPASE/PROTEAS/AMYLASE 5/17/27 CAPSULE.DR. PO SCH ×3 (08:20→16:32)
[2016-09-11] MEDS: ASCORBIC ACID 500 MG TABLET PO SCH (08:20)
[2016-09-11] MEDS: CEFPODOXIME PROXETIL 100 MG TABLET PO SCH ×2 (08:21→20:42)
[2016-09-11] MEDS: LACTOBACILLUS ACIDOPH & BULGAR 1 TABLET. PO SCH ×3 (08:21→16:27)
[2016-09-11] MEDS: PANTOPRAZOLE 40 MG TABLET. PO SCH (08:21)
--- NOTE | 2016-09-11 09:12 | RAD ---
EXAM: Chest, single view. HISTORY: Empyema. COMPARISON: 09/10/2016. FINDINGS: A frontal view of the chest is obtained. There has been slight interval decrease in a small loculated right hydropneumothorax. There is a right apical thoracostomy tube. There are stable opacities throughout the right lung likely due to infiltrate. There is right hemithorax volume loss. There is a right PICC with the tip at the junction of the brachiocephalic vein and superior cava. The heart is normal in size. There are surgical clips within the upper abdomen. There are healed rib fractures. IMPRESSION: 1. Slight interval decrease in a small loculated right hydropneumothorax and stable right apical thoracostomy tube. 2. Stable diffuse lower lobe predominant right lung airspace disease likely due to infiltrate.
[2016-09-11 11:15] VITALS: BP 118/83
--- NOTE | 2016-09-11 11:51 | PDOC ---
PULMONARY PROGRESS NOTES Subjective feels better, s/p right de-cortication with extensive pleural peel removed air leak on one chest tube, other chest tube removed 09/09 Vitals Vital Signs Date Time Temp Pulse Resp B/P Pulse Ox O2 Delivery O2 Flow Rate FiO2 09/11/16 11:20 Nasal Cannula 2.0 09/11/16 11:15 97.9 107 20 118/83 99 97.9 Comments ros as above, other sys otherwise neg General: Alert, No acute distress HEENT: Other (nc at perrl, throat nose clear) Lungs: Other (decrease bs) Cardiovascular: S1, S2 Abdomen: Soft, Non-tender, Other (no mass) Neuro Exam: Alert, Oriented, No Focal Findings Extremities: No Edema Skin: Warm Medications Active Scripts Medications Dose Route/Sig Days Date Category Zyprexa (Olanzapine) 2.5 Mg Tablet 1 Tab PO QHS 01/15/16 Reported Tizanidine Hcl 4 Mg Tablet 4 Mg PO TID PRN 01/14/16 Reported Tramadol Hcl 50 Mg Tablet 50 Mg PO BID PRN 01/14/16 Reported Lialda (Mesalamine) 1.2 Gm Tablet.dr 4 Tab PO DAILY 01/14/16 Reported Comments cxr reviewed, 09/11 tiny right PTX/ volume loss RLL Impression . 1. Acute hypoxic respiratory failure POA,, secondary to extensive multilobar community-acquired pneumonia/ multiloculated effusion, empyema. 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Dense adhesions of the lung to the chest wall, extremely difficult to create a space. Owing to the patient's sepsis she was very coagulopathic and there was more bleeding than usual. Very friable lung, possible small parenchymal lung tear. 2. chronic obstructive pulmonary disease 3. severe leukocytosis POA. This is probably related to underlying extensive pneumonia and sepsis./ BM aspiration 08/29 , No leukemia 4. Severe protein-calorie malnutrition with an albumin level of 1.4. 5. Normal ejection fraction by echo with a pulmonary artery systolic pressure of 49. Suspect this is secondary to underlying chronic obstructive pulmonary disease. 7. smoker 8. Anemia Plan . 1. Monitor daily cxr/ / small PTX ,persistent air leak 2. follow pleural cultures/ cytology/ emperic PO antibiotic added to to severity of empyema for one week 3. cont chest tube to suction to -30. 4. Bronchodilators. 5. Deep venous thrombosis prophylaxis with scd 6. Stress ulcer prophylaxis. 7. Transfusion prn 8.. pain control / IS 9. f/u [facility] recommendations HERBER PERALES MD Sep 11, 2016 11:51
--- NOTE | 2016-09-11 14:40 | PDOC ---
PROGRESS NOTES Chief Complaint Chief Complaint 1. PNA: multilobar. w/ empyema 2. Empyema: s/p VATS, w/ chest tubes draining 3. COPD exacerbation: improving 4. Sepsis: resolved 5. HTN, tachycardia: vitals improved 6. BP at low normal, prob influenced by IV narcotics. IVF boluses PRN 7. Ulcerative Colitis: on mesalamine, pancreatic enzymes, macrobiotics 8. Depression: on zyprexa 9. Smoker: nicotine patch 10. Migraine: imitrex PRN 11. chest pain: musculoskeletal from chest tubes fentanyl, Oxy PO PRN History of Present Illness History of Present Illness 1 indwelling chest tube remains NO inc SOA Pain level ok NO CP LAbs hgb 7 plus today K 3.4 PLAn: Recheck HH kaden PT/OT Pananed for removal of CT soon, recheck CXR kaden per pulmo/TCVS\ Replace K Dw family Vitals Vitals Vital Signs Date Time Temp Pulse Resp B/P Pulse Ox O2 Delivery O2 Flow Rate FiO2 09/11/16 14:14 99 Room Air 2.0 09/11/16 12:20 20 09/11/16 11:15 97.9 107 118/83 97.9 Physical Exam Physical Exam GENERAL: NAD, Alert HEENT: PERRL, OC/OP NECK: Supple, no JVD, no LN LUNGS: Clear HEART: S1S2, no gallop, no murmur ABD: Soft, NT, no organomegaly, no rebound EXT: No edema, no cyanosis [employer]: Alert, oriented x 3, no focal neurologic deficit SKIN: No rash IV: ok General: Alert, Oriented X3, No acute distress Heart: Normal S1, Normal S2, No murmurs, Other Lungs: Other (decrease bs) Abdomen: Soft, No tenderness Extremities: No edema Skin: Other Review of Systems Review of Systems all 14pt reveiwed, neg Assessment and Plan Assessmemt and Plan Problems Medical Problems: (1) CAP (community acquired pneumonia) Status: Acute (2) Empyema of lung Status: Acute Problems: Comment Review of Relevant I have reviewed the following items randi (where applicable) has been applied. Labs Microbiology 09/05/16 Anaerobic/Aerobic Culture - Final, Complete 09/05/16 Anaerobic Culture Result 1 (BRUCE) - Final, Complete 09/05/16 Aerobic Culture - Final, Complete 09/05/16 Aerobic Culture Result 1 (BRUCE) - Final, Complete 09/05/16 Anaerobic/Aerobic Culture - Preliminary, Resulted 09/05/16 Anaerobic Culture Result 1 (BRUCE) - Preliminary, Resulted 09/05/16 Aerobic Culture - Final, Resulted 09/05/16 Aerobic Culture Result 1 (BRUCE) - Final, Resulted Medications Current Medications Acetaminophen (Tylenol) 325 mg PRN Q6HRS PRN PO MILD PAIN / TEMP Last administered on 08/26/16 08:29; Start 08/25/16 at 12:45 Acetaminophen/ Hydrocodone Bitart (Lortab 5/325) 1 tab PRN Q6HRS PRN PO MODERATE PAIN Last administered on 08/27/16 02:06; Start 08/25/16 at 12:45; Stop 08/29/16 at 16:41; Status DC Hydralazine HCl (Apresoline) 10 mg PRN Q4HRS PRN IVP ELEVATED BP, SEE COMMENTS Last administered on 08/26/16 05:07; Start 08/25/16 at 12:45 Ondansetron HCl (Zofran) 4 mg PRN Q8HRS PRN IV NAUSEA/VOMITING Last administered on 08/25/16 15:42; Start 08/25/16 at 12:45; Stop 08/27/16 at 08:44 ; Status DC Albuterol Sulfate 2.5 mg 2.5 mg PRN Q4HRS PRN NEB SHORTNESS OF BREATH; Start at 12:45 Piperacillin Sod/ Tazobactam Sod 3.375 gm/Sodium Chloride 50 ml @ 100 mls/hr Q6HRS IV Last administered on 09/08/16 06:00; Start 08/25/16 at 13:00; Stop at 07:53; Status DC Linezolid (Zyvox Premix) 300 ml @ 300 mls/hr Q12HR IV Last administered on 21:39; Start 08/25/16 at 14:00; Stop 09/08/16 at 07:52; Status DC Piperacillin Sod/ Tazobactam Sod 1 each 1 each PRN DAILY PRN MC SEE COMMENTS; Start 08/25/16 at 13:45; Stop 08/27/16 at 12:41; Status DC Levofloxacin/ Dextrose (LEVAQUIN 750mg PREMIX) 150 ml @ 100 mls/hr Q24H IV Last administered on 08/28/16 13:51; Start 08/25/16 at 14:00; Stop 08/28/16 at 14:37; Status DC Lidocaine/Sodium Bicarbonate (Buffered Lidocaine 1%) 20 ml STK-MED ONCE IJ ; Start 08/25/16 at 14:00; Stop 08/25/16 at 14:01; Status DC Lidocaine/Sodium Bicarbonate (Buffered Lidocaine 1%) 5 ml 1X ONCE IJ Last administered on 08/25/16 14:59; Start 08/25/16 at 15:00; Stop 08/25/16 at 15:01 ; Status DC Info (Do NOT chart on this placeholder) 1 each 1X ONCE MC ; Start 08/25/16 at 17:00; Stop 08/25/16 at 17:01; Status UNV Pneumococcal Polyvalent Vaccine (Do NOT chart on this placeholder) 1 each 1X ONCE MC ; Start 08/25/16 at 17:00; Stop 08/25/16 at 17:01; Status UNV Influenza Virus Vaccine Quadrival (Fluarix Quad [id number] Syringe) 0.5 ml ONCE ONCE VAX IM ; Start 08/26/16 at 09:00; Stop 08/26/16 at 09:01; Status DC Pneumococcal Polyvalent Vaccine (Pneumovax 23) 0.5 ml ONCE ONCE VAX IM ; Start 08/26/16 at 09:00; Stop 08/26/16 at 09:01; Status DC Enoxaparin Sodium (Lovenox 40mg Syringe) 40 mg Q24H SQ Last administered on 08:19; Start 08/26/16 at 09:00; Stop 08/29/16 at 11:45; Status DC Fentanyl Citrate (Fentanyl 2ml Vial) 25 mcg PRN Q4HRS PRN IV PAIN Last administered on 08/27/16 06:13; Start 08/26/16 at 08:30; Stop 08/29/16 at 15:07 ; Status DC Potassium Chloride (Klor-Con) 40 meq 1X ONCE PO Last administered on 11:24; Start 08/26/16 at 10:45; Stop 08/26/16 at 10:49; Status DC Mesalamine (Lialda) 4.8 gm DAILY06 PO Last administered on 09/11/16 06:09; Start 08/26/16 at 13:30 Olanzapine (Zyprexa) 2.5 mg HS PO Last administered on 09/10/16 20:57; Start 08/26/16 at 21:00 Sumatriptan Succinate (Imitrex) 100 mg PRN Q2HR PRN PO MIGRAINE HEADACHE Last administered on 09/11/16 13:37; Start 08/26/16 at 13:30 Tizanidine HCl (Zanaflex) 4 mg QHS PO Last administered on 08/26/16 19:57; Start 08/26/16 at 21:00; Stop 08/26/16 at 21:00; Status DC Tramadol HCl (Ultram) 50 mg BID PO Last administered on 08/31/16 07:48; Start 08/26/16 at 14:00; Stop 08/31/16 at 15:54; Status DC Ascorbic Acid (Vitamin C) 1,000 mg DAILY PO Last administered on 09/11/16 08: 20; Start 08/27/16 at 09:00 Amylase/Lipase/ Protease (Zenpep 5,000) 5 cap TIDWMEALS PO Last administered on 09/11/16 12:24; Start 08/26/16 at 17:00 Niacin (Slo-Niacin) 500 mg QHS PO Last administered on 09/10/16 20:57; Start 08/26/16 at 21:00 Pantoprazole Sodium (Protonix) 40 mg DAILYAC PO Last administered on 09/11/16 08:21; Start 08/26/16 at 14:00 Non-Formulary Medication 1 tab DAILY PO ; Start 08/27/16 at 09:00; Status UNV Diphenoxylate HCl/ Atropine (Lomotil) 1 tab PRN QID PRN PO DIARRHEA Last administered on 09/03/16 17:27; Start 08/26/16 at 13:45 Tizanidine HCl (Zanaflex) 20 mg QHS PO Last administered on 09/10/16 20:58; Start 08/26/16 at 21:00 Acetaminophen/ Hydrocodone Bitart (Lortab 5/325) 2 tab PRN Q6HRS PRN PO SEVERE PAIN Last administered on 08/29/16 10:47; Start 08/27/16 at 04:45; Stop at 16:41; Status DC Ondansetron HCl (Zofran) 4 mg PRN Q6HRS PRN IV NAUSEA/VOMITING Last administered on 09/05/16 23:16; Start 08/27/16 at 08:42 Vancomycin HCl 125 mg [id number] PO Last administered on 08/28/16 20:54; Start at 16:00; Stop 08/29/16 at 10:24; Status DC Lactobacillus Acidophilus 1 tab 1 tab TIDWMEALS PO Last administered on 12:25; Start 08/27/16 at 17:00 Sodium Chloride (Iv Sodium Chloride 0.9% 500ml Bag) 500 ml @ 500 mls/hr 1X ONCE IV Last administered on 08/28/16 00:52; Start 08/28/16 at 01:00; Stop at 01:59; Status DC Nicotine (Nicoderm Cq 21mg) 1 patch PRN DAILY PRN TD SMOKING CESSATION; Start 08/28/16 at 09:30 Cetirizine HCl (Zyrtec) 10 mg DAILY PO Last administered on 09/11/16 08:20; Start 08/28/16 at 10:00 Vitamin D (Vitamin D3) 1,000 unit DAILY PO Last administered on 09/11/16 08:20 ; Start 08/28/16 at 10:00 Iohexol (Omnipaque 300 Mg/ml) 75 ml 1X ONCE IV Last administered on 08/28/16 10:53; Start 08/28/16 at 10:15; Stop 08/28/16 at 10:16; Status DC Info (Do NOT chart on this entry -- for MONITORING) 1 each PRN DAILY PRN MC SEE COMMENTS; Start 08/28/16 at 10:00; Stop 08/30/16 at 09:59; Status DC Potassium Chloride (Klor-Con) 40 meq 1X ONCE PO Last administered on 13:52; Start 08/28/16 at 13:00; Stop 08/28/16 at 13:01; Status DC Lidocaine/Sodium Bicarbonate (Buffered Lidocaine 1%) 20 ml STK-MED ONCE IJ ; Start 08/29/16 at 08:36; Stop 08/29/16 at 08:37; Status DC Naloxone HCl (Narcan) 0.4 mg STK-MED ONCE .ROUTE ; Start 08/29/16 at 08:37; Stop 08/29/16 at 08:38; Status DC Flumazenil (Romazicon) 0.5 mg STK-MED ONCE IV ; Start 08/29/16 at 08:37; Stop at 08:38; Status DC Midazolam HCl (Versed) 5 mg STK-MED ONCE .ROUTE ; Start 08/29/16 at 08:37; Stop 08/29/16 at 08:38; Status DC Fentanyl Citrate (Fentanyl 5ml Vial) 250 mcg STK-MED ONCE .ROUTE ; Start at 08:37; Stop 08/29/16 at 08:38; Status DC Lidocaine/Sodium Bicarbonate (Buffered Lidocaine 1%) 6 ml 1X ONCE IJ Last administered on 08/29/16 09:09; Start 08/29/16 at 09:15; Stop 08/29/16 at 09:16 ; Status DC Midazolam HCl (Versed) 2 mg 1X ONCE IV Last administered on 08/29/16 09:08; Start 08/29/16 at 09:15; Stop 08/29/16 at 09:16; Status DC Fentanyl Citrate (Fentanyl 5ml Vial) 100 mcg 1X ONCE IV Last administered on 09:08; Start 08/29/16 at 09:15; Stop 08/29/16 at 09:16; Status DC Enoxaparin Sodium (Lovenox 40mg Syringe) 40 mg Q24H SQ Last administered on 16:01; Start 08/29/16 at 16:00; Stop 08/31/16 at 10:23; Status DC Acetaminophen/ Hydrocodone Bitart (Lortab 5/325) 1 tab PRN Q4HRS PRN PO MODERATE PAIN; Start 08/29/16 at 16:45; Stop 08/31/16 at 15:54; Status DC Acetaminophen/ Hydrocodone Bitart (Lortab 5/325) 2 tab PRN Q4HRS PRN PO SEVERE PAIN Last administered on 08/31/16 15:14; Start 08/29/16 at 16:45; Stop at 15:54; Status DC Lidocaine/Sodium Bicarbonate (Buffered Lidocaine 1%) 20 ml STK-MED ONCE IJ ; Start 08/30/16 at 13:57; Stop 08/30/16 at 13:58; Status DC Midazolam HCl (Versed) 2 mg STK-MED ONCE .ROUTE ; Start 08/30/16 at 14:22; Stop 08/30/16 at 14:23; Status DC Fentanyl Citrate (Fentanyl 2ml Vial) 100 mcg STK-MED ONCE .ROUTE ; Start at 14:22; Stop 08/30/16 at 14:23; Status DC Lidocaine/Sodium Bicarbonate (Buffered Lidocaine 1%) 4 ml 1X ONCE IJ Last administered on 08/30/16t 15:08; Start 08/30/16 at 14:50; Stop 08/30/16 at 15:04 ; Status DC Midazolam HCl (Versed) 1 mg 1X ONCE IV Last administered on 08/30/16t 15:09; Start 08/30/16 at 14:45; Stop 08/30/16 at 15:04; Status DC Fentanyl Citrate (Fentanyl 2ml Vial) 50 mcg 1X ONCE IV Last administered on t 15:09; Start 08/30/16 at 14:45; Stop 08/30/16 at 15:05; Status DC Metoprolol Tartrate 25 mg 25 mg BID PO Last administered on 08/30/16t 21:44; Start 08/30/16 at 21:00; Stop 08/31/16 at 17:09; Status DC Alteplase, Recombinant 5 mg/ Sterile Water 50 ml @ 5 mls/hr 1X ONCE IV ; Start 08/31/16 at 10:30; Stop 08/31/16 at 15:27; Status DC Alteplase, Recombinant 5 mg/ Sterile Water 50 ml @ 5 mls/hr 1X ONCE IV ; Start 08/31/16 at 10:45; Stop 08/31/16 at 15:27; Status DC Alteplase, Recombinant 5 mg/ Sterile Water 50 ml @ 5 mls/hr 1X ONCE INT CAT Last administered on 08/31/16t 12:40; Start 08/31/16 at 15:27; Stop 08/31/16 at 20:29; Status DC Alteplase, Recombinant/ Sterile Water (Cathflo) 50 ml @ 5 mls/hr 1X ONCE INT CAT Last administered on 08/31/16 12:40; Start 08/31/16 at 15:27; Stop at 20:44; Status DC Oxycodone HCl (Roxicodone) 5 mg PRN Q3HRS PRN PO MODERATE - SEVERE PAIN Last administered on 09/09/16 01:39; Start 08/31/16 at 16:00 Morphine Sulfate 2 mg PRN Q6HRS PRN IV PAIN; Start 08/31/16 at 16:00; Stop at 18:07; Status DC Oxycodone HCl (Roxicodone) 10 mg PRN Q3HRS PRN PO MODERATE - SEVERE PAIN Last administered on 09/10/16 23:49; Start 08/31/16 at 16:00 Fentanyl Citrate (Fentanyl 2ml Vial) 50 mcg PRN Q2HR PRN IV PAIN SEV Last administered on 09/08/16 09:08; Start 08/31/16 at 18:15; Stop 09/08/16 at 10:32 ; Status DC Morphine Sulfate 2 mg 2 mg ONCE ONCE IV Last administered on 08/31/16 18:05; Start 08/31/16 at 20:45; Stop 08/31/16 at 20:46; Status DC Sodium Chloride (Iv Sodium Chloride 0.9% 500ml Bag) 500 ml @ 500 mls/hr 1X ONCE IV Last administered on 09/01/16 06:30; Start 09/01/16 at 06:30; Stop at 07:29; Status DC Alteplase, Recombinant (Cathflo) 2 mg 1X ONCE INT CAT Last administered on 06:35; Start 09/01/16 at 07:00; Stop 09/01/16 at 07:01; Status DC Albuterol Sulfate 2.5 mg 2.5 mg RTQID NEB Last administered on 09/11/16 11:19 ; Start 09/01/16 at 12:00 Sodium Chloride 1,000 ml @ 1,000 mls/hr 1X ONCE IV Last administered on 12:09; Start 09/01/16 at 11:45; Stop 09/01/16 at 12:44; Status DC Alteplase, Recombinant 5 mg/ Sterile Water 50 ml @ 5 mls/hr 1X ONCE INT CAT Last administered on 09/01/16 12:30; Start 09/01/16 at 12:30; Stop 09/01/16 at 22:29; Status DC Alteplase, Recombinant/ Sterile Water (Cathflo) 50 ml @ 5 mls/hr 1X ONCE INT CAT Last administered on 09/01/16 12:30; Start 09/01/16 at 12:30; Stop at 22:29; Status DC Alteplase, Recombinant 2 mg 2 mg 1X ONCE INT CAT Last administered on 15:18; Start 09/01/16 at 13:00; Stop 09/01/16 at 13:01; Status DC Sodium Chloride (Iv Sodium Chloride 0.9% 1000ml Bag) 1,000 ml @ 1,000 mls/hr 1X ONCE IV Last administered on 09/01/16 23:45; Start 09/01/16 at 23:45; Stop 09/02/16 at 00:44; Status DC Fentanyl Citrate (Fentanyl 2ml Vial) 50 mcg 1X ONCE IV Last administered on 15:30; Start 09/03/16 at 15:30; Stop 09/03/16 at 15:35; Status DC Bupivacaine HCl (Sensorcaine Mpf 0.5%) 30 ml STK-MED ONCE .ROUTE ; Start at 12:12; Stop 09/05/16 at 12:13; Status DC Lidocaine HCl 20 ml STK-MED ONCE .ROUTE ; Start 09/05/16 at 12:13; Stop at 12:14; Status DC Cellulose 1 each STK-MED ONCE .ROUTE ; Start 09/05/16 at 12:13; Stop 09/05/16 at 12:14; Status DC Lidocaine HCl 100 mg 100 mg STK-MED ONCE .ROUTE ; Start 09/05/16 at 13:16; Stop 09/05/16 at 13:17; Status DC Propofol (Diprivan) 100 ml @ As Directed STK-MED ONCE IV ; Start 09/05/16 at 13 :16; Stop 09/05/16 at 13:17; Status DC Fentanyl Citrate (Fentanyl 2ml Vial) 100 mcg STK-MED ONCE .ROUTE ; Start at 13:16; Stop 09/05/16 at 13:17; Status DC Rocuronium [place] (Zemuron) 50 mg STK-MED ONCE .ROUTE ; Start 09/05/16 at 13:16 ; Stop 09/05/16 at 13:17; Status DC Lidocaine HCl 1 ml 1 ml STK-MED ONCE .ROUTE ; Start 09/05/16 at 13:20; Stop at 13:21; Status DC Lactated Ringer's (Iv Lactated Ringers) 1,000 ml @ 100 mls/hr Q10H IV Last administered on 09/06/16t 06:22; Start 09/05/16 at 14:15; Stop 09/06/16 at 18:30 ; Status DC Lidocaine HCl (Xylocaine-Mpf 1% Vial) 2 ml 1X ONCE INJ Last administered on t 13:35; Start 09/05/16 at 14:30; Stop 09/05/16 at 14:31; Status DC Dexamethasone Sodium Phosphate (Decadron) 20 mg STK-MED ONCE .ROUTE ; Start at 14:49; Stop 09/05/16 at 14:50; Status DC Sevoflurane (Ultane) 90 ml STK-MED ONCE IH ; Start 09/05/16 at 14:49; Stop 09/05 at 14:50; Status DC Fentanyl Citrate (Fentanyl 2ml Vial) 100 mcg STK-MED ONCE .ROUTE ; Start at 15:07; Stop 09/05/16 at 15:08; Status DC Metoprolol Tartrate (Lopressor) 5 mg STK-MED ONCE .ROUTE ; Start 09/05/16 at 15: 09; Stop 09/05/16 at 15:10; Status DC Ondansetron HCl (Zofran) 4 mg STK-MED ONCE .ROUTE ; Start 09/05/16 at 15:23; Stop 09/05/16 at 15:24; Status DC Glycopyrrolate (Robinul) 1 mg STK-MED ONCE .ROUTE ; Start 09/05/16 at 15:23; Stop 09/05/16 at 15:24; Status DC Neostigmine Methylsulfate 5 mg STK-MED ONCE .ROUTE ; Start 09/05/16 at 15:23; Stop 09/05/16 at 15:24; Status DC Rocuronium [place] (Zemuron) 50 mg STK-MED ONCE .ROUTE ; Start 09/05/16 at 15:24 ; Stop 09/05/16 at 15:25; Status DC Ondansetron HCl (Zofran) 4 mg PRN Q6HRS PRN IV Nausea; Start 09/05/16 at 17:15 ; Stop 09/05/16 at 19:00; Status DC Fentanyl Citrate (Fentanyl 2ml Vial) 25 mcg PRN Q5MIN PRN IV MILD PAIN; Start 09/05/16 at 17:15; Stop 09/05/16 at 19:00; Status DC Fentanyl Citrate (Fentanyl 2ml Vial) 50 mcg PRN Q5MIN PRN IV MODERATE PAIN; Start 09/05/16 at 17:15; Stop 09/05/16 at 19:00; Status DC Morphine Sulfate 1 mg 1 mg PRN Q10MIN PRN IV SEVERE PAIN; Start 09/05/16 at 17: 15; Stop 09/05/16 at 19:00; Status DC Lactated Ringer's (Iv Lactated Ringers) 1,000 ml @ 0 mls/hr Q0M IV ; Start at 17:06; Stop 09/05/16 at 19:00; Status DC Lidocaine HCl 2 ml 1X PRN PRN ID IV START; Start 09/05/16 at 17:15; Stop at 19:00; Status DC Hydromorphone HCl (Dilaudid) 0.5 mg PRN Q10MIN PRN IV SEV PAIN,Second choice; Start 09/05/16 at 17:15; Stop 09/05/16 at 19:00; Status DC Prochlorperazine Edisylate (Compazine) 5 mg PACU PRN PRN IV NAUSEA; Start 09/05 at 17:15; Stop 09/05/16 at 19:00; Status DC Phenylephrine HCl (Fortino-Synephrine Inj) 10 mg STK-MED ONCE .ROUTE ; Start at 17:37; Stop 09/05/16 at 17:38; Status DC Sodium Bicarbonate 50 meq 50 meq STK-MED ONCE .ROUTE ; Start 09/05/16 at 17:58; Stop 09/05/16 at 17:59; Status DC Lactated Ringer's 500 ml @ 75 mls/hr 1X ONCE IV Last administered on 22:02; Start 09/05/16 at 21:30; Stop 09/06/16 at 04:09; Status DC Sodium Chloride (Iv Sodium Chloride 0.9% 500ml Bag) 500 ml @ 500 mls/hr 1X ONCE IV Last administered on 09/07/16 00:17; Start 09/07/16 at 00:00; Stop at 00:59; Status DC Fentanyl Citrate (Fentanyl 2ml Vial) 75 mcg PRN Q2HR PRN IV PAIN SEV Last administered on 09/11/16 14:14; Start 09/08/16 at 11:00 Morphine Sulfate (Ms Contin) 15 mg BID PO Last administered on 09/09/16 08:46 ; Start 09/08/16 at 11:00; Stop 09/09/16 at 17:13; Status DC Cefpodoxime Proxetil (Vantin) 100 mg BID PO Last administered on 09/11/16 08: 21; Start 09/08/16 at 14:00 Enoxaparin Sodium (Lovenox 30mg Syringe) 30 mg Q24H SQ Last administered on 20:53; Start 09/08/16 at 21:00; Stop 09/09/16 at 08:39; Status DC Enoxaparin Sodium (Lovenox 40mg Syringe) 40 mg Q24H SQ Last administered on 20:59; Start 09/09/16 at 21:00 Fentanyl Citrate (Fentanyl 2ml Vial) 100 mcg 1X ONCE IV Last administered on 13:41; Start 09/10/16 at 13:15; Stop 09/10/16 at 13:16; Status DC Potassium Chloride (Klor-Con) 20 meq 1X ONCE PO Last administered on 13:41; Start 09/10/16 at 13:30; Stop 09/10/16 at 13:31; Status DC Active Scripts Active Reported [diphen/atropine] 2.5 Mg PO PRN QID PRN Prilosec Otc (Omeprazole Magnesium) 20 Mg Tablet.dr 1 Tab PO DAILY Lialda (Mesalamine) 1.2 Gm Tablet.dr 4 Tab PO DAILY06 Tizanidine Hcl 4 Mg Tablet 5 Tab PO QHS Olanzapine 2.5 Mg Tablet 2.5 Mg PO HS Zyrtec (Cetirizine Hcl) 10 Mg Capsule 10 Mg PO DAILY Dhea 50 Mg Tablet (Prasterone (Dhea)/Calcium Carb) 1 Each Tablet 1 Tab PO DAILY Niacin 500 Mg Tablet 500 Mg PO HS Vitamin D3 (Cholecalciferol (Vitamin D3)) 1,000 Unit Capsule 1,000 Unit PO DAILY Vitamin C (Ascorbic Acid) 1,000 Mg Tab.chew 1,000 Mg PO DAILY Imitrex (Sumatriptan Succinate) 100 Mg Tablet 100 Mg PO ONCE PRN Tramadol Hcl 50 Mg Tablet 4 Tab PO BID Zenpep 25,000 Units Capsule (Lipase/Protease/Amylase) 1 Each Capsule.dr 1 Each PO TIDAFTMEAL Vitals/I & O Vital Sign - Last 24 Hours 09/10/16 09/10/16 09/10/16 09/10/16 15:00 15:48 16:09 18:35 Temp 98.2 98.2 Pulse 130 Resp 18 20 B/P 130/79 Pulse Ox 97 95 95 95 O2 Delivery Nasal Cannula Room Air Room Air Room Air O2 Flow Rate 2.0 2.0 09/10/16 09/10/16 09/10/16 09/10/16 19:16 19:30 20:00 21:00 Temp 97.9 97.9 Pulse 109 Resp 18 16 B/P 135/77 Pulse Ox 98 O2 Delivery Room Air Nasal Cannula Room Air Nasal Cannula O2 Flow Rate 2.0 2.0 2.0 09/10/16 09/10/16 09/11/16 09/11/16 23:00 23:49 00:49 03:11 Temp 97.7 97.7 Pulse 101 Resp 18 16 16 12 B/P 101/58 Pulse Ox 98 O2 Delivery Nasal Cannula Nasal Cannula Nasal Cannula Nasal Cannula O2 Flow Rate 2.0 2.0 2.0 2.0 09/11/16 09/11/16 09/11/16 09/11/16 03:11 06:17 07:36 07:58 Temp 98.0 97.6 98.0 97.6 Pulse 109 111 Resp 20 12 18 B/P 143/78 117/80 Pulse Ox 99 95 98 O2 Delivery Nasal Cannula Nasal Cannula Nasal Cannula Nasal Cannula O2 Flow Rate 2.0 2.0 2.0 2.0 09/11/16 09/11/16 09/11/16 09/11/16 08:00 09:18 11:15 11:20 Temp 97.9 97.9 Pulse 107 Resp 20 B/P 118/83 Pulse Ox 98 99 O2 Delivery Room Air Room Air Nasal Cannula Nasal Cannula O2 Flow Rate 2.0 2.0 2.0 2.0 09/11/16 09/11/16 09/11/16 11:53 12:20 14:14 Resp 22 20 Pulse Ox 99 99 99 O2 Delivery Room Air Room Air Room Air O2 Flow Rate 2.0 2.0 2.0 Intake and Output 09/10/16 09/10/16 09/11/16 15:00 23:00 07:00 Intake Total 800 ml 400 ml Output Total 1320 ml 100 ml 550 ml Balance -1320 ml 700 ml -150 ml ABDELRAHMAN KOENIG MD Sep 11, 2016 14:40
[2016-09-11 15:30] VITALS: BP 129/69
[2016-09-11 19:22] VITALS: BP 128/73
[2016-09-11] MEDS: tiZANidine 4 MG TABLET. PO SCH (20:42)
[2016-09-11] MEDS: OLANZAPINE 2.5 MG TABLET PO SCH (20:42)
[2016-09-11] MEDS: NIACIN ER 500 MG TABLET.ER PO SCH (20:42)
[2016-09-11] MEDS: OXYCODONE IR 5 MG TABLET. PO PRN (20:43)
[2016-09-11] MEDS: ENOXAPARIN 40 MG/0.4 ML DISP.SYRIN. SQ SCH (20:43)
[2016-09-11 23:14] VITALS: BP 81/43
[2016-09-12] VITALS (8 sets, daily range): BP systolic 94–118; BP diastolic 59–80
[2016-09-12] MEDS: SUMATRIPTAN SUCCINATE 100 MG TABLET. PO PRN ×3 (02:19→23:30)
[2016-09-12] MEDS: OXYCODONE IR 5 MG TABLET. PO PRN ×4 (02:20→20:06)
[2016-09-12] MEDS: MESALAMINE 1.2 GM TABLET.DR PO SCH (04:36)
[2016-09-12] MEDS: FENTANYL PF 100 MCG/2 ML VIAL. IV PRN ×8 (04:37→22:16)
[2016-09-12 06:58] LABS: HEMATOCRIT 25.6 % (36.0-47.0); HEMOGLOBIN 8.5 g/dL (12.0-15.5)
[2016-09-12 07:13] LABS: CALCIUM 9.2 mg/dL (8.5-10.1); CREATININE 0.7 mg/dL (0.6-1.0); GFR 86.9
[2016-09-12] MEDS: ALBUTEROL SULFATE 2.5 MG/3 ML NEBU. NEB SCH ×4 (07:23→20:06)
--- NOTE | 2016-09-12 07:48 | RAD ---
Portable chest, 09/12/2016: History: Postop evaluation, empyema Comparison is made to yesterday's study. A right PICC extends into the superior aspect of the superior vena cava. The right chest tube is unchanged in position. There is irregular pleural thickening on the right and patchy underlying pulmonary infiltrate, unchanged. There is a tiny unchanged right pneumothorax. No significant left lung infiltrate or pleural fluid is seen. The heart size and pulmonary vascularity are normal. IMPRESSION: No significant change since yesterday's exam.
[2016-09-12] MEDS: PANTOPRAZOLE 40 MG TABLET. PO SCH (08:29)
[2016-09-12] MEDS: CHOLECALCIFEROL (VITAMIN D3) 1,000 UNIT TABLET PO SCH (08:30)
[2016-09-12] MEDS: CEFPODOXIME PROXETIL 100 MG TABLET PO SCH ×2 (08:30→20:52)
[2016-09-12] MEDS: CETIRIZINE HCL 10 MG TABLET PO SCH (08:30)
[2016-09-12] MEDS: ASCORBIC ACID 500 MG TABLET PO SCH (08:31)
[2016-09-12] MEDS: LACTOBACILLUS ACIDOPH & BULGAR 1 TABLET. PO SCH ×3 (08:31→17:16)
--- NOTE | 2016-09-12 08:34 | PDOC ---
Provider Note Provider Note DATE OF f/u: 09/12/2016 c/c: f/u of Leukocytosis in a patient with pneumonia. HISTORY OF PRESENT ILLNESS: The patient is a 55-year-old female who presented to [facility] Emergency Room 08/21/2016 with complaints of worsening cough and pleuritic chest pain and dyspnea of one week duration. In the Emergency Room, she was noted to have tachycardia and elevated WBC count of 57,000 and lactic acid of 4.1. She was diagnosed with sepsis. She underwent a chest x-ray that revealed right lower lobe pneumonia with small pneumonic effusion. She underwent CT scan of the abdomen on 08/21/2016 that revealed right lower lobe pneumonia. She underwent a CT scan of the chest on 08/22/2016 that revealed multilobar pneumonia, small to moderate multiloculated right pleural effusion, which might indicate a parapneumonic effusion versus empyema. There is also evidence of mild emphysema. She was started on antibiotics, however, she has progressive dyspnea and hypoxia and hence she was transferred to [facility]. Infectious Disease and pulmonary consultation was obtained, she was started on antibiotics. She underwent right chest tube insertion on 08/25/2016, 130 mL of whitish cloudy right pleural fluid was sent to the lab for evaluation. Her WBC count on 08/26/2016 was 32.2 and on 08/27/2016, it was 54.0. In addition, there was evidence of 23% bands, 5% metamyelocytes, 8%, myelocytes, 1% blasts and hence I was asked to see the patient for further evaluation of leukocytosis. Her hemoglobin was 11.9 with a platelet count of 536. PAST MEDICAL HISTORY: COPD. REVIEW OF SYSTEMS: no n/v, rt sided CP better PHYSICAL EXAMINATION: GENERAL APPEARANCE: The patient is a 55-year-old female who is in no acute cardiorespiratory distress. CHEST: Bilaterally symmetrical, decreased air entry on the right side. HEART: S1, S2 normal. ABDOMEN: Soft, nontender. No hepatosplenomegaly. CENTRAL NERVOUS SYSTEM: No focal neurological deficits. LABORATORY DATA: On 08/27/2016, WBC 54, hemoglobin 11.9, MCV 83, platelet count 536, bands 23%, metamyelocytes 5%, myelocytes 8% and peripheral smear on 08/26/2016 revealed presence of blasts at 1%. IMPRESSION AND PLAN: 1. Severe leukocytosis with a WBC count of 54,000 on 08/27/2016 and hemoglobin of 11.9, platelet count 536,000. There was evidence of elevated bands at 23%, elevated metamyelocytes of 5%, myelocytes of 8%, and 1% blasts. With the presence of sepsis, pneumonia and empyema, this is most likely reactive process. However, in view of worsening myelocytes and the presence of blasts, I would pursue with the bone marrow aspiration and biopsy to make sure that she does not have a primary bone marrow disorder. WBC now normal at 8.4 on 09/08/16, monitor cbc S/p bone marrow bx 08/29/16. I d/w pathologist, no increased blasts to suggest leukemia, final results: The findings appear to be most compatible with a reactive neutrophilic leukocytosis and thrombocytosis. 2. Pneumonia. Continue antibiotics. Appreciate ID consultation. 3. Empyema. Status post right thoracentesis and chest tube placement. s/p Right VATS, drainage of empyema and pulmonary decortication 09/05/16. Chest tube in place. 4. Sepsis with lactic acidosis. 5. Chronic obstructive pulmonary disease. SARAVANAN RAMIREZ MD Sep 12, 2016 08:34
[2016-09-12] MEDS ORDERED: MAGNESIUM HYDROXIDE 2,400 MG/30 ML ORAL.SUSP. PO PRN (11:15)
--- NOTE | 2016-09-12 11:31 | PDOC ---
PROGRESS NOTES Chief Complaint Chief Complaint 1. PNA: multilobar. w/ empyema 2. Empyema: s/p VATS, w/ chest tubes draining 3. COPD exacerbation: improving 4. Sepsis: resolved 5. HTN, tachycardia: vitals improved 6. BP at low normal, prob influenced by IV narcotics. IVF boluses PRN 7. Ulcerative Colitis: on mesalamine, pancreatic enzymes, macrobiotics 8. Depression: on zyprexa 9. Smoker: nicotine patch 10. Migraine: imitrex PRN 11. chest pain: musculoskeletal from chest tubes fentanyl, Oxy PO PRN History of Present Illness History of Present Illness 1 indwelling chest tube remains Still "bubbling"\\ PAin today LAst BM yesterday - soft stools - has UC NO inc SOA hgb 8.5 from 7 yesterday PLAn: Start fentanyl patch today Keep PO oxycodone and IV fentanyl push NO need for stool regimen Dw pt and RN ernie Planned for removal CT hopefully or mon Vitals Vitals Vital Signs Date Time Temp Pulse Resp B/P Pulse Ox O2 Delivery O2 Flow Rate FiO2 09/12/16 11:18 Nasal Cannula 2.0 09/12/16 11:07 97.8 124 20 112/66 98 97.8 Physical Exam Physical Exam GENERAL: NAD, Alert HEENT: PERRL, OC/OP NECK: Supple, no JVD, no LN LUNGS: Clear HEART: S1S2, no gallop, no murmur ABD: Soft, NT, no organomegaly, no rebound EXT: No edema, no cyanosis [employer]: Alert, oriented x 3, no focal neurologic deficit SKIN: No rash IV: ok General: Alert, Oriented X3, No acute distress Heart: Normal S1, Normal S2, No murmurs, Other Lungs: Other (decrease bs) Abdomen: Soft, No tenderness Extremities: No edema Skin: Other Labs LABS Laboratory Tests Test 09/12/16 06:40 Hemoglobin 8.5g/dL (12.0-15.5) Hematocrit 25.6% (36.0-47.0) Mean Corpuscular Hemoglobin Concent 33g/dL (31-37) Sodium Level 137mmol/L (136-145) Potassium Level 4.0mmol/L (3.5-5.1) Chloride Level 100mmol/L (98-107) Carbon Dioxide Level 28mmol/L (21-32) Anion Gap 9 (6-14) Blood Urea Nitrogen 8mg/dL (7-20) Creatinine 0.7mg/dL (0.6-1.0) Estimated GFR (Cockcroft-Gault) 86.9 Glucose Level 106mg/dL (70-99) Calcium Level 9.2mg/dL (8.5-10.1) Review of Systems Review of Systems CT site pain, loose sttols, the rest is neg Assessment and Plan Assessmemt and Plan Problems Medical Problems: (1) CAP (community acquired pneumonia) Status: Acute (2) Empyema of lung Status: Acute Problems: Comment Review of Relevant I have reviewed the following items randi (where applicable) has been applied. Labs Laboratory Tests Test 09/12/16 06:40 Hemoglobin 8.5g/dL (12.0-15.5) Hematocrit 25.6% (36.0-47.0) Mean Corpuscular Hemoglobin Concent 33g/dL (31-37) Sodium Level 137mmol/L (136-145) Potassium Level 4.0mmol/L (3.5-5.1) Chloride Level 100mmol/L (98-107) Carbon Dioxide Level 28mmol/L (21-32) Anion Gap 9 (6-14) Blood Urea Nitrogen 8mg/dL (7-20) Creatinine 0.7mg/dL (0.6-1.0) Estimated GFR (Cockcroft-Gault) 86.9 Glucose Level 106mg/dL (70-99) Calcium Level 9.2mg/dL (8.5-10.1) Laboratory Tests Test 09/12/16 06:40 Hemoglobin 8.5g/dL (12.0-15.5) Hematocrit 25.6% (36.0-47.0) Mean Corpuscular Hemoglobin Concent 33g/dL (31-37) Sodium Level 137mmol/L (136-145) Potassium Level 4.0mmol/L (3.5-5.1) Chloride Level 100mmol/L (98-107) Carbon Dioxide Level 28mmol/L (21-32) Anion Gap 9 (6-14) Blood Urea Nitrogen 8mg/dL (7-20) Creatinine 0.7mg/dL (0.6-1.0) Estimated GFR (Cockcroft-Gault) 86.9 Glucose Level 106mg/dL (70-99) Calcium Level 9.2mg/dL (8.5-10.1) Microbiology 09/05/16 Anaerobic/Aerobic Culture - Final, Complete 09/05/16 Anaerobic Culture Result 1 (BRUCE) - Final, Complete 09/05/16 Aerobic Culture - Final, Complete 09/05/16 Aerobic Culture Result 1 (BRUCE) - Final, Complete 09/05/16 Anaerobic/Aerobic Culture - Preliminary, Resulted 09/05/16 Anaerobic Culture Result 1 (BRUCE) - Preliminary, Resulted 09/05/16 Aerobic Culture - Final, Resulted 09/05/16 Aerobic Culture Result 1 (BRUCE) - Final, Resulted Medications Current Medications Acetaminophen (Tylenol) 325 mg PRN Q6HRS PRN PO MILD PAIN / TEMP Last administered on 08/26/16 08:29; Start 08/25/16 at 12:45 Acetaminophen/ Hydrocodone Bitart (Lortab 5/325) 1 tab PRN Q6HRS PRN PO MODERATE PAIN Last administered on 08/27/16 02:06; Start 08/25/16 at 12:45; Stop 08/29/16 at 16:41; Status DC Hydralazine HCl (Apresoline) 10 mg PRN Q4HRS PRN IVP ELEVATED BP, SEE COMMENTS Last administered on 08/26/16 05:07; Start 08/25/16 at 12:45 Ondansetron HCl (Zofran) 4 mg PRN Q8HRS PRN IV NAUSEA/VOMITING Last administered on 08/25/16 15:42; Start 08/25/16 at 12:45; Stop 08/27/16 at 08:44 ; Status DC Albuterol Sulfate 2.5 mg 2.5 mg PRN Q4HRS PRN NEB SHORTNESS OF BREATH; Start at 12:45 Piperacillin Sod/ Tazobactam Sod 3.375 gm/Sodium Chloride 50 ml @ 100 mls/hr Q6HRS IV Last administered on 09/08/16 06:00; Start 08/25/16 at 13:00; Stop at 07:53; Status DC Linezolid (Zyvox Premix) 300 ml @ 300 mls/hr Q12HR IV Last administered on 21:39; Start 08/25/16 at 14:00; Stop 09/08/16 at 07:52; Status DC Piperacillin Sod/ Tazobactam Sod 1 each 1 each PRN DAILY PRN MC SEE COMMENTS; Start 08/25/16 at 13:45; Stop 08/27/16 at 12:41; Status DC Levofloxacin/ Dextrose (LEVAQUIN 750mg PREMIX) 150 ml @ 100 mls/hr Q24H IV Last administered on 08/28/16 13:51; Start 08/25/16 at 14:00; Stop 08/28/16 at 14:37; Status DC Lidocaine/Sodium Bicarbonate (Buffered Lidocaine 1%) 20 ml STK-MED ONCE IJ ; Start 08/25/16 at 14:00; Stop 08/25/16 at 14:01; Status DC Lidocaine/Sodium Bicarbonate (Buffered Lidocaine 1%) 5 ml 1X ONCE IJ Last administered on 08/25/16 14:59; Start 08/25/16 at 15:00; Stop 08/25/16 at 15:01 ; Status DC Info (Do NOT chart on this placeholder) 1 each 1X ONCE MC ; Start 08/25/16 at 17:00; Stop 08/25/16 at 17:01; Status UNV Pneumococcal Polyvalent Vaccine (Do NOT chart on this placeholder) 1 each 1X ONCE MC ; Start 08/25/16 at 17:00; Stop 08/25/16 at 17:01; Status UNV Influenza Virus Vaccine Quadrival (Fluarix Quad [id number] Syringe) 0.5 ml ONCE ONCE VAX IM ; Start 08/26/16 at 09:00; Stop 08/26/16 at 09:01; Status DC Pneumococcal Polyvalent Vaccine (Pneumovax 23) 0.5 ml ONCE ONCE VAX IM ; Start 08/26/16 at 09:00; Stop 08/26/16 at 09:01; Status DC Enoxaparin Sodium (Lovenox 40mg Syringe) 40 mg Q24H SQ Last administered on 08:19; Start 08/26/16 at 09:00; Stop 08/29/16 at 11:45; Status DC Fentanyl Citrate (Fentanyl 2ml Vial) 25 mcg PRN Q4HRS PRN IV PAIN Last administered on 08/27/16 06:13; Start 08/26/16 at 08:30; Stop 08/29/16 at 15:07 ; Status DC Potassium Chloride (Klor-Con) 40 meq 1X ONCE PO Last administered on 11:24; Start 08/26/16 at 10:45; Stop 08/26/16 at 10:49; Status DC Mesalamine (Lialda) 4.8 gm DAILY06 PO Last administered on 09/12/16 04:36; Start 08/26/16 at 13:30 Olanzapine (Zyprexa) 2.5 mg HS PO Last administered on 09/11/16 20:42; Start 08/26/16 at 21:00 Sumatriptan Succinate (Imitrex) 100 mg PRN Q2HR PRN PO MIGRAINE HEADACHE Last administered on 09/12/16 02:19; Start 08/26/16 at 13:30 Tizanidine HCl (Zanaflex) 4 mg QHS PO Last administered on 08/26/16 19:57; Start 08/26/16 at 21:00; Stop 08/26/16 at 21:00; Status DC Tramadol HCl (Ultram) 50 mg BID PO Last administered on 08/31/16 07:48; Start 08/26/16 at 14:00; Stop 08/31/16 at 15:54; Status DC Ascorbic Acid (Vitamin C) 1,000 mg DAILY PO Last administered on 09/12/16 08: 31; Start 08/27/16 at 09:00 Amylase/Lipase/ Protease (Zenpep 5,000) 5 cap TIDWMEALS PO Last administered on 09/11/16 16:32; Start 08/26/16 at 17:00 Niacin (Slo-Niacin) 500 mg QHS PO Last administered on 09/11/16 20:42; Start 08/26/16 at 21:00 Pantoprazole Sodium (Protonix) 40 mg DAILYAC PO Last administered on 09/12/16 08:29; Start 08/26/16 at 14:00 Non-Formulary Medication 1 tab DAILY PO ; Start 08/27/16 at 09:00; Status UNV Diphenoxylate HCl/ Atropine (Lomotil) 1 tab PRN QID PRN PO DIARRHEA Last administered on 09/03/16 17:27; Start 08/26/16 at 13:45 Tizanidine HCl (Zanaflex) 20 mg QHS PO Last administered on 09/11/16 20:42; Start 08/26/16 at 21:00 Acetaminophen/ Hydrocodone Bitart (Lortab 5/325) 2 tab PRN Q6HRS PRN PO SEVERE PAIN Last administered on 08/29/16 10:47; Start 08/27/16 at 04:45; Stop at 16:41; Status DC Ondansetron HCl (Zofran) 4 mg PRN Q6HRS PRN IV NAUSEA/VOMITING Last administered on 09/05/16 23:16; Start 08/27/16 at 08:42 Vancomycin HCl 125 mg [id number] PO Last administered on 08/28/16 20:54; Start at 16:00; Stop 08/29/16 at 10:24; Status DC Lactobacillus Acidophilus 1 tab 1 tab TIDWMEALS PO Last administered on 08:31; Start 08/27/16 at 17:00 Sodium Chloride (Iv Sodium Chloride 0.9% 500ml Bag) 500 ml @ 500 mls/hr 1X ONCE IV Last administered on 08/28/16 00:52; Start 08/28/16 at 01:00; Stop at 01:59; Status DC Nicotine (Nicoderm Cq 21mg) 1 patch PRN DAILY PRN TD SMOKING CESSATION; Start 08/28/16 at 09:30 Cetirizine HCl (Zyrtec) 10 mg DAILY PO Last administered on 09/12/16 08:30; Start 08/28/16 at 10:00 Vitamin D (Vitamin D3) 1,000 unit DAILY PO Last administered on 09/12/16 08:30 ; Start 08/28/16 at 10:00 Iohexol (Omnipaque 300 Mg/ml) 75 ml 1X ONCE IV Last administered on 08/28/16 10:53; Start 08/28/16 at 10:15; Stop 08/28/16 at 10:16; Status DC Info (Do NOT chart on this entry -- for MONITORING) 1 each PRN DAILY PRN MC SEE COMMENTS; Start 08/28/16 at 10:00; Stop 08/30/16 at 09:59; Status DC Potassium Chloride (Klor-Con) 40 meq 1X ONCE PO Last administered on 13:52; Start 08/28/16 at 13:00; Stop 08/28/16 at 13:01; Status DC Lidocaine/Sodium Bicarbonate (Buffered Lidocaine 1%) 20 ml STK-MED ONCE IJ ; Start 08/29/16 at 08:36; Stop 08/29/16 at 08:37; Status DC Naloxone HCl (Narcan) 0.4 mg STK-MED ONCE .ROUTE ; Start 08/29/16 at 08:37; Stop 08/29/16 at 08:38; Status DC Flumazenil (Romazicon) 0.5 mg STK-MED ONCE IV ; Start 08/29/16 at 08:37; Stop at 08:38; Status DC Midazolam HCl (Versed) 5 mg STK-MED ONCE .ROUTE ; Start 08/29/16 at 08:37; Stop 08/29/16 at 08:38; Status DC Fentanyl Citrate (Fentanyl 5ml Vial) 250 mcg STK-MED ONCE .ROUTE ; Start at 08:37; Stop 08/29/16 at 08:38; Status DC Lidocaine/Sodium Bicarbonate (Buffered Lidocaine 1%) 6 ml 1X ONCE IJ Last administered on 08/29/16 09:09; Start 08/29/16 at 09:15; Stop 08/29/16 at 09:16 ; Status DC Midazolam HCl (Versed) 2 mg 1X ONCE IV Last administered on 08/29/16 09:08; Start 08/29/16 at 09:15; Stop 08/29/16 at 09:16; Status DC Fentanyl Citrate (Fentanyl 5ml Vial) 100 mcg 1X ONCE IV Last administered on 09:08; Start 08/29/16 at 09:15; Stop 08/29/16 at 09:16; Status DC Enoxaparin Sodium (Lovenox 40mg Syringe) 40 mg Q24H SQ Last administered on 16:01; Start 08/29/16 at 16:00; Stop 08/31/16 at 10:23; Status DC Acetaminophen/ Hydrocodone Bitart (Lortab 5/325) 1 tab PRN Q4HRS PRN PO MODERATE PAIN; Start 08/29/16 at 16:45; Stop 08/31/16 at 15:54; Status DC Acetaminophen/ Hydrocodone Bitart (Lortab 5/325) 2 tab PRN Q4HRS PRN PO SEVERE PAIN Last administered on 08/31/16 15:14; Start 08/29/16 at 16:45; Stop at 15:54; Status DC Lidocaine/Sodium Bicarbonate (Buffered Lidocaine 1%) 20 ml STK-MED ONCE IJ ; Start 08/30/16 at 13:57; Stop 08/30/16 at 13:58; Status DC Midazolam HCl (Versed) 2 mg STK-MED ONCE .ROUTE ; Start 08/30/16 at 14:22; Stop 08/30/16 at 14:23; Status DC Fentanyl Citrate (Fentanyl 2ml Vial) 100 mcg STK-MED ONCE .ROUTE ; Start at 14:22; Stop 08/30/16 at 14:23; Status DC Lidocaine/Sodium Bicarbonate (Buffered Lidocaine 1%) 4 ml 1X ONCE IJ Last administered on 08/30/16 15:08; Start 08/30/16 at 14:50; Stop 08/30/16 at 15:04 ; Status DC Midazolam HCl (Versed) 1 mg 1X ONCE IV Last administered on 08/30/16 15:09; Start 08/30/16 at 14:45; Stop 08/30/16 at 15:04; Status DC Fentanyl Citrate (Fentanyl 2ml Vial) 50 mcg 1X ONCE IV Last administered on 15:09; Start 08/30/16 at 14:45; Stop 08/30/16 at 15:05; Status DC Metoprolol Tartrate 25 mg 25 mg BID PO Last administered on 08/30/16 21:44; Start 08/30/16 at 21:00; Stop 08/31/16 at 17:09; Status DC Alteplase, Recombinant 5 mg/ Sterile Water 50 ml @ 5 mls/hr 1X ONCE IV ; Start 08/31/16 at 10:30; Stop 08/31/16 at 15:27; Status DC Alteplase, Recombinant 5 mg/ Sterile Water 50 ml @ 5 mls/hr 1X ONCE IV ; Start 08/31/16 at 10:45; Stop 08/31/16 at 15:27; Status DC Alteplase, Recombinant 5 mg/ Sterile Water 50 ml @ 5 mls/hr 1X ONCE INT CAT Last administered on 08/31/16 12:40; Start 08/31/16 at 15:27; Stop 08/31/16 at 20:29; Status DC Alteplase, Recombinant/ Sterile Water (Cathflo) 50 ml @ 5 mls/hr 1X ONCE INT CAT Last administered on 08/31/16 12:40; Start 08/31/16 at 15:27; Stop at 20:44; Status DC Oxycodone HCl (Roxicodone) 5 mg PRN Q3HRS PRN PO MODERATE - SEVERE PAIN Last administered on 09/12/16 10:11; Start 08/31/16 at 16:00 Morphine Sulfate 2 mg PRN Q6HRS PRN IV PAIN; Start 08/31/16 at 16:00; Stop at 18:07; Status DC Oxycodone HCl (Roxicodone) 10 mg PRN Q3HRS PRN PO MODERATE - SEVERE PAIN Last administered on 09/12/16 02:20; Start 08/31/16 at 16:00 Fentanyl Citrate (Fentanyl 2ml Vial) 50 mcg PRN Q2HR PRN IV PAIN SEV Last administered on 09/08/16 09:08; Start 08/31/16 at 18:15; Stop 09/08/16 at 10:32 ; Status DC Morphine Sulfate 2 mg 2 mg ONCE ONCE IV Last administered on 08/31/16 18:05; Start 08/31/16 at 20:45; Stop 08/31/16 at 20:46; Status DC Sodium Chloride (Iv Sodium Chloride 0.9% 500ml Bag) 500 ml @ 500 mls/hr 1X ONCE IV Last administered on 09/01/16 06:30; Start 09/01/16 at 06:30; Stop at 07:29; Status DC Alteplase, Recombinant (Cathflo) 2 mg 1X ONCE INT CAT Last administered on 06:35; Start 09/01/16 at 07:00; Stop 09/01/16 at 07:01; Status DC Albuterol Sulfate 2.5 mg 2.5 mg RTQID NEB Last administered on 09/12/16 11:17 ; Start 09/01/16 at 12:00 Sodium Chloride 1,000 ml @ 1,000 mls/hr 1X ONCE IV Last administered on 12:09; Start 09/01/16 at 11:45; Stop 09/01/16 at 12:44; Status DC Alteplase, Recombinant 5 mg/ Sterile Water 50 ml @ 5 mls/hr 1X ONCE INT CAT Last administered on 09/01/16 12:30; Start 09/01/16 at 12:30; Stop 09/01/16 at 22:29; Status DC Alteplase, Recombinant/ Sterile Water (Cathflo) 50 ml @ 5 mls/hr 1X ONCE INT CAT Last administered on 09/01/16 12:30; Start 09/01/16 at 12:30; Stop at 22:29; Status DC Alteplase, Recombinant 2 mg 2 mg 1X ONCE INT CAT Last administered on 15:18; Start 09/01/16 at 13:00; Stop 09/01/16 at 13:01; Status DC Sodium Chloride (Iv Sodium Chloride 0.9% 1000ml Bag) 1,000 ml @ 1,000 mls/hr 1X ONCE IV Last administered on 09/01/16 23:45; Start 09/01/16 at 23:45; Stop 09/02/16 at 00:44; Status DC Fentanyl Citrate (Fentanyl 2ml Vial) 50 mcg 1X ONCE IV Last administered on 15:30; Start 09/03/16 at 15:30; Stop 09/03/16 at 15:35; Status DC Bupivacaine HCl (Sensorcaine Mpf 0.5%) 30 ml STK-MED ONCE .ROUTE ; Start at 12:12; Stop 09/05/16 at 12:13; Status DC Lidocaine HCl 20 ml STK-MED ONCE .ROUTE ; Start 09/05/16 at 12:13; Stop at 12:14; Status DC Cellulose 1 each STK-MED ONCE .ROUTE ; Start 09/05/16 at 12:13; Stop 09/05/16 at 12:14; Status DC Lidocaine HCl 100 mg 100 mg STK-MED ONCE .ROUTE ; Start 09/05/16 at 13:16; Stop 09/05/16 at 13:17; Status DC Propofol (Diprivan) 100 ml @ As Directed STK-MED ONCE IV ; Start 09/05/16 at 13 :16; Stop 09/05/16 at 13:17; Status DC Fentanyl Citrate (Fentanyl 2ml Vial) 100 mcg STK-MED ONCE .ROUTE ; Start at 13:16; Stop 09/05/16 at 13:17; Status DC Rocuronium [place] (Zemuron) 50 mg STK-MED ONCE .ROUTE ; Start 09/05/16 at 13:16 ; Stop 09/05/16 at 13:17; Status DC Lidocaine HCl 1 ml 1 ml STK-MED ONCE .ROUTE ; Start 09/05/16 at 13:20; Stop at 13:21; Status DC Lactated Ringer's (Iv Lactated Ringers) 1,000 ml @ 100 mls/hr Q10H IV Last administered on 09/06/16t 06:22; Start 09/05/16 at 14:15; Stop 09/06/16 at 18:30 ; Status DC Lidocaine HCl (Xylocaine-Mpf 1% Vial) 2 ml 1X ONCE INJ Last administered on t 13:35; Start 09/05/16 at 14:30; Stop 09/05/16 at 14:31; Status DC Dexamethasone Sodium Phosphate (Decadron) 20 mg STK-MED ONCE .ROUTE ; Start at 14:49; Stop 09/05/16 at 14:50; Status DC Sevoflurane (Ultane) 90 ml STK-MED ONCE IH ; Start 09/05/16 at 14:49; Stop 09/05 at 14:50; Status DC Fentanyl Citrate (Fentanyl 2ml Vial) 100 mcg STK-MED ONCE .ROUTE ; Start at 15:07; Stop 09/05/16 at 15:08; Status DC Metoprolol Tartrate (Lopressor) 5 mg STK-MED ONCE .ROUTE ; Start 09/05/16 at 15: 09; Stop 09/05/16 at 15:10; Status DC Ondansetron HCl (Zofran) 4 mg STK-MED ONCE .ROUTE ; Start 09/05/16 at 15:23; Stop 09/05/16 at 15:24; Status DC Glycopyrrolate (Robinul) 1 mg STK-MED ONCE .ROUTE ; Start 09/05/16 at 15:23; Stop 09/05/16 at 15:24; Status DC Neostigmine Methylsulfate 5 mg STK-MED ONCE .ROUTE ; Start 09/05/16 at 15:23; Stop 09/05/16 at 15:24; Status DC Rocuronium [place] (Zemuron) 50 mg STK-MED ONCE .ROUTE ; Start 09/05/16 at 15:24 ; Stop 09/05/16 at 15:25; Status DC Ondansetron HCl (Zofran) 4 mg PRN Q6HRS PRN IV Nausea; Start 09/05/16 at 17:15 ; Stop 09/05/16 at 19:00; Status DC Fentanyl Citrate (Fentanyl 2ml Vial) 25 mcg PRN Q5MIN PRN IV MILD PAIN; Start 09/05/16 at 17:15; Stop 09/05/16 at 19:00; Status DC Fentanyl Citrate (Fentanyl 2ml Vial) 50 mcg PRN Q5MIN PRN IV MODERATE PAIN; Start 09/05/16 at 17:15; Stop 09/05/16 at 19:00; Status DC Morphine Sulfate 1 mg 1 mg PRN Q10MIN PRN IV SEVERE PAIN; Start 09/05/16 at 17: 15; Stop 09/05/16 at 19:00; Status DC Lactated Ringer's (Iv Lactated Ringers) 1,000 ml @ 0 mls/hr Q0M IV ; Start at 17:06; Stop 09/05/16 at 19:00; Status DC Lidocaine HCl 2 ml 1X PRN PRN ID IV START; Start 09/05/16 at 17:15; Stop at 19:00; Status DC Hydromorphone HCl (Dilaudid) 0.5 mg PRN Q10MIN PRN IV SEV PAIN,Second choice; Start 09/05/16 at 17:15; Stop 09/05/16 at 19:00; Status DC Prochlorperazine Edisylate (Compazine) 5 mg PACU PRN PRN IV NAUSEA; Start 09/05 at 17:15; Stop 09/05/16 at 19:00; Status DC Phenylephrine HCl (Fortino-Synephrine Inj) 10 mg STK-MED ONCE .ROUTE ; Start at 17:37; Stop 09/05/16 at 17:38; Status DC Sodium Bicarbonate 50 meq 50 meq STK-MED ONCE .ROUTE ; Start 09/05/16 at 17:58; Stop 09/05/16 at 17:59; Status DC Lactated Ringer's 500 ml @ 75 mls/hr 1X ONCE IV Last administered on 22:02; Start 09/05/16 at 21:30; Stop 09/06/16 at 04:09; Status DC Sodium Chloride (Iv Sodium Chloride 0.9% 500ml Bag) 500 ml @ 500 mls/hr 1X ONCE IV Last administered on 09/07/16 00:17; Start 09/07/16 at 00:00; Stop at 00:59; Status DC Fentanyl Citrate (Fentanyl 2ml Vial) 75 mcg PRN Q2HR PRN IV PAIN SEV Last administered on 09/12/16 10:37; Start 09/08/16 at 11:00 Morphine Sulfate (Ms Contin) 15 mg BID PO Last administered on 09/09/16 08:46 ; Start 09/08/16 at 11:00; Stop 09/09/16 at 17:13; Status DC Cefpodoxime Proxetil (Vantin) 100 mg BID PO Last administered on 09/12/16 08: 30; Start 09/08/16 at 14:00 Enoxaparin Sodium (Lovenox 30mg Syringe) 30 mg Q24H SQ Last administered on 20:53; Start 09/08/16 at 21:00; Stop 09/09/16 at 08:39; Status DC Enoxaparin Sodium (Lovenox 40mg Syringe) 40 mg Q24H SQ Last administered on 20:43; Start 09/09/16 at 21:00 Fentanyl Citrate (Fentanyl 2ml Vial) 100 mcg 1X ONCE IV Last administered on 13:41; Start 09/10/16 at 13:15; Stop 09/10/16 at 13:16; Status DC Potassium Chloride (Klor-Con) 20 meq 1X ONCE PO Last administered on t 13:41; Start 09/10/16 at 13:30; Stop 09/10/16 at 13:31; Status DC Fentanyl (Duragesic 75mcg/ Hr Patch) 1 patch Q3DAYS TD ; Start 09/12/16 at 11:00 Docusate Sodium (Colace) 100 mg BID PO ; Start 09/12/16 at 12:00 Polyethylene Glycol (miraLAX PACKET) 17 gm DAILY PO ; Start 09/12/16 at 12:00 Magnesium Hydroxide (Milk Of Magnesia) 2,400 mg PRN DAILY PRN PO CONSTIPATION; Start 09/12/16 at 11:15 Active Scripts Active Reported [diphen/atropine] 2.5 Mg PO PRN QID PRN Prilosec Otc (Omeprazole Magnesium) 20 Mg Tablet.dr 1 Tab PO DAILY Lialda (Mesalamine) 1.2 Gm Tablet.dr 4 Tab PO DAILY06 Tizanidine Hcl 4 Mg Tablet 5 Tab PO QHS Olanzapine 2.5 Mg Tablet 2.5 Mg PO HS Zyrtec (Cetirizine Hcl) 10 Mg Capsule 10 Mg PO DAILY Dhea 50 Mg Tablet (Prasterone (Dhea)/Calcium Carb) 1 Each Tablet 1 Tab PO DAILY Niacin 500 Mg Tablet 500 Mg PO HS Vitamin D3 (Cholecalciferol (Vitamin D3)) 1,000 Unit Capsule 1,000 Unit PO DAILY Vitamin C (Ascorbic Acid) 1,000 Mg Tab.chew 1,000 Mg PO DAILY Imitrex (Sumatriptan Succinate) 100 Mg Tablet 100 Mg PO ONCE PRN Tramadol Hcl 50 Mg Tablet 4 Tab PO BID Zenpep 25,000 Units Capsule (Lipase/Protease/Amylase) 1 Each Capsule.dr 1 Each PO TIDAFTMEAL Vitals/I & O Vital Sign - Last 24 Hours 09/11/16 09/11/16 09/11/16 09/11/16 11:53 14:14 15:30 15:35 Temp 98.7 98.7 Pulse 125 Resp 22 19 B/P 129/69 Pulse Ox 99 99 94 O2 Delivery Room Air Room Air Nasal Cannula Nasal Cannula O2 Flow Rate 2.0 2.0 2.0 2.0 09/11/16 09/11/16 09/11/16 09/11/16 16:27 18:32 19:00 19:22 Temp 98.6 98.6 Pulse 124 Resp 20 20 20 B/P 128/73 Pulse Ox 99 99 97 O2 Delivery Room Air Room Air Nasal Cannula Nasal Cannula O2 Flow Rate 2.0 2.0 2.0 2.0 09/11/16 09/11/16 09/11/16 09/11/16 19:23 20:43 20:44 21:43 Resp 20 20 20 Pulse Ox 95 O2 Delivery Nasal Cannula Nasal Cannula Nasal Cannula O2 Flow Rate 2.0 2.0 2.0 09/11/16 09/11/16 09/12/16 09/12/16 23:14 23:51 02:20 02:22 Temp 98.1 98.0 98.1 98.0 Pulse 115 103 Resp 20 20 20 20 B/P 81/43 118/68 Pulse Ox 98 98 O2 Delivery Nasal Cannula Nasal Cannula Nasal Cannula Nasal Cannula O2 Flow Rate 2.0 2.0 2.0 2.0 09/12/16 09/12/16 09/12/16 09/12/16 03:20 04:37 07:25 07:56 Temp 97.8 97.8 Pulse 120 Resp 20 18 B/P 103/69 Pulse Ox 98 97 92 O2 Delivery Nasal Cannula Nasal Cannula Nasal Cannula Room Air O2 Flow Rate 2.0 2.0 2.0 09/12/16 09/12/16 09/12/16 09/12/16 08:00 08:29 09:00 10:11 Resp 22 20 20 Pulse Ox 94 94 94 O2 Delivery Room Air Nasal Cannula Room Air Nasal Cannula O2 Flow Rate 2.0 2.0 2.0 2.0 09/12/16 09/12/16 09/12/16 09/12/16 10:37 10:46 11:07 11:18 Temp 97.8 97.8 Pulse 124 Resp 20 20 B/P 112/66 Pulse Ox 94 98 O2 Delivery Room Air Nasal Cannula Nasal Cannula Nasal Cannula O2 Flow Rate 2.0 2.0 2.0 2.0 Intake and Output 09/11/16 09/11/16 09/12/16 15:00 23:00 07:00 Intake Total 600 ml 120 ml Output Total 1200 ml 40 ml 1610 ml Balance -600 ml -40 ml -1490 ml ABDELRAHMAN KOENIG MD Sep 12, 2016 11:31
[2016-09-12] MEDS ORDERED: POLYETHYLENE GLYCOL 3350 17 GM PACKET. PO SCH (12:00)
[2016-09-12] MEDS ORDERED: DOCUSATE SODIUM 100 MG CAPSULE PO SCH (12:00)
[2016-09-12] MEDS: LIPASE/PROTEAS/AMYLASE 5/17/27 CAPSULE.DR. PO SCH ×3 (12:00→17:16)
[2016-09-12] MEDS: FENTANYL 75MCG/HR PATCH. TD SCH (12:25)
--- NOTE | 2016-09-12 13:10 | PDOC2 ---
SAMIARORO Royal SH[employer] OFFICER 09/12/16 1310: CARDIAC CONSULT DATE OF CONSULT Date of Consult DATE: 09/12/16 TIME: 12:35 REASON FOR CONSULT Reason for Consult: tachycardia REFERRING PHYSICIAN Referring Physician: Dr. Victor M Early SOURCE Source: Chart review, Patient HISTORY OF PRESENT ILLNESS HISTORY OF PRESENT ILLNESS 55 year old female initially admitted to [facility] on 08/21/2016 with cough, dyspnea and pleuritic chest pain of at least one week's duration. WBC found to be 57K and CXR suggestive of RLL pneumonia with small effusion. Started on multiple antibiotics, however, symptoms worsened and become more hypoxic on 100 % O2. CT scan of the chest demonstrated multiloculated right pleural effusion and LLL infiltrate. Transferred to [facility] on 08/26/2016. Chest tubes placed by IR and pleural effusion treated with tPa. Required evaluation by CTS for VATS and decortication which was completed 09/05/2016. Currently with residual CT in situ. Noted to be tachycardic with ambulation today - remained sinus with rates in the 150s. Patient felt "fast heart rate," but no associated chest pain , dizziness, lightheadedness or change in dyspnea. Reason for Visit: tachycardia PAST MEDICAL HISTORY Cardiovascular: HTN (?) Pulmonary: COPD CENTRAL NERVOUS SYSTEM: Migraine GI: Inflam bowel disease (ulcerative colitis) Heme/Onc: No pertinent hx Hepatobiliary: No pertinent hx Psych: Anxiety, Depression Rheumatologic: No pertinent hx Infectious disease: No pertinent hx ENT: No pertinent hx Renal/: Other (granulomatous pyelonephritis with previous left nephrectomy) PAST SURGICAL HISTORY Past Surgical History: Hysterectomy (with BSO), Other (left nephrectomy) FAMILY HISTORY Family History: Cancer (breast) SOCIAL HISTORY Smoke: 1 pack per day (since age 15) ALCOHOL: other (daily) Drugs: None Lives: with Family ALLERGIES ALLERGIES: Coded Allergies: morphine (Verified Adverse Reaction, Intermediate, TRIGGERS MIGRAINES, ) ROS Review of System 14 point review with pertinent positives in HPI PHYSICAL EXAM General: Alert, Oriented X3, Cooperative, No acute distress HEENT: Atraumatic, PERRLA Lungs: Other (expiratory wheezing in RUL posteriorly; right side CT) Heart: Regular rate (tachycardic), Normal S1, Normal S2, No murmurs, Other ( tele: SR/ST) Abdomen: Normal bowel sounds, Soft, No tenderness Extremities: No edema, Normal pulses Skin: No rashes Neuro: Normal speech Psych/Mental Status: Mental status NL, Mood NL MUSCULOSKELETAL: No joint tenderness VITALS VITALS Vital Signs Date Time Temp Pulse Resp B/P Pulse Ox O2 Delivery O2 Flow Rate FiO2 09/12/16 11:23 98.1 128 20 107/72 94 Nasal Cannula 2.0 98.1 LABS Lab: Laboratory Tests Test 09/12/16 06:40 Hemoglobin 8.5g/dL (12.0-15.5) Hematocrit 25.6% (36.0-47.0) Mean Corpuscular Hemoglobin Concent 33g/dL (31-37) Sodium Level 137mmol/L (136-145) Potassium Level 4.0mmol/L (3.5-5.1) Chloride Level 100mmol/L (98-107) Carbon Dioxide Level 28mmol/L (21-32) Anion Gap 9 (6-14) Blood Urea Nitrogen 8mg/dL (7-20) Creatinine 0.7mg/dL (0.6-1.0) Estimated GFR (Cockcroft-Gault) 86.9 Glucose Level 106mg/dL (70-99) Calcium Level 9.2mg/dL (8.5-10.1) IMAGES IMAGES CXR: 09/12/2016: Comparison is made to yesterday's study. A right PICC extends into the superior aspect of the superior vena cava. The right chest tube is unchanged in position. There is irregular pleural thickening on the right and patchy underlying pulmonary infiltrate, unchanged. There is a tiny unchanged right pneumothorax. No significant left lung infiltrate or pleural fluid is seen. The heart size and pulmonary vascularity are normal. IMPRESSION: No significant change since yesterday's exam. EKG EKG 08/28/2016: ST with rate of 110 ASSESSMENT/PLAN ASSESSMENT/PLAN 1. tachycardia, reactive; present since 08/21/2016 multifactorial in etiology: anemia, post-operative, pain, Zyprexa, dehydration from UC treat underlying etiologies check Mg and TSH echo to evaluate for valvular disease 2. pneumonia/sepsis s/p VATS with drainage of empyema and decortication per CTS 3. presumed COPD with tobacco abuse 4. granulomatous pyelonephritis with previous left nephrectomy 5. ulcerative colitis continue medications 6. depression treated with meds Zyprexa may contribute to tachycardia 7. migraine headaches Problems: ANAHI JONES MD 09/12/16 1616: CARDIAC CONSULT ALLERGIES ALLERGIES: Coded Allergies: morphine (Verified Adverse Reaction, Intermediate, TRIGGERS MIGRAINES, ) ASSESSMENT/PLAN ASSESSMENT/PLAN Patient seen and examined. Agree with nurse practitioner note. 55-year-old woman admitted with pneumonia and recent VATS procedure. On examination she appears alert and oriented. No acute distress. Heart tones are notable for tachycardia but otherwise unremarkable. Echocardiogram with normal LV function. Continue supportive care. We will follow along peripherally. Thank you for this consultation. Problems: RORO GRACIA APRN Sep 12, 2016 13:10 ANAHI JONES MD Sep 12, 2016 16:16
--- NOTE | 2016-09-12 13:33 | PDOC ---
Progress Note Subjective Subjective Doing well. No other issues. Small air leak persists. ROS ROS No nausea No vomiting No pain No rash Vital Sign Vital Signs Vital Signs Date Time Temp Pulse Resp B/P Pulse Ox O2 Delivery O2 Flow Rate FiO2 09/12/16 12:29 22 94 Nasal Cannula 2.0 09/12/16 11:23 98.1 128 107/72 98.1 Physical Exam PHYSICAL EXAM GENERAL: NAD, Alert HEENT: PERRL, OC/OP NECK: Supple, no JVD, no LN LUNGS: Clear HEART: S1S2, no gallop, no murmur ABD: Soft, NT, no organomegaly, no rebound EXT: No edema, no cyanosis INSTRUMENT PROCESSING TECH: Alert, oriented x 3, no focal neurologic deficit SKIN: No rash IV: ok Labs Lab Laboratory Tests Test 09/12/16 06:40 Hemoglobin 8.5g/dL (12.0-15.5) Hematocrit 25.6% (36.0-47.0) Mean Corpuscular Hemoglobin Concent 33g/dL (31-37) Sodium Level 137mmol/L (136-145) Potassium Level 4.0mmol/L (3.5-5.1) Chloride Level 100mmol/L (98-107) Carbon Dioxide Level 28mmol/L (21-32) Anion Gap 9 (6-14) Blood Urea Nitrogen 8mg/dL (7-20) Creatinine 0.7mg/dL (0.6-1.0) Estimated GFR (Cockcroft-Gault) 86.9 Glucose Level 106mg/dL (70-99) Calcium Level 9.2mg/dL (8.5-10.1) Magnesium Level 1.4mg/dL (1.8-2.4) Thyroid Stimulating Hormone (TSH) 2.222uIU/mL (0.358-3.74) Objective Assessment POD#7 s/p R VATS, drainage of empyema and pulmonary decortication. Doing well. On room air. Small air leak persists. Plan Plan of Care Will attempt to place chest tube on water seal. If the lung remains expanded, will keep her off suction Aggressive incentive spirometry and ambulation. Lovenox for DVT prophylaxis. YOVANI WHALEY MD Sep 12, 2016 13:33
--- NOTE | 2016-09-12 14:19 | PDOC ---
PULMONARY PROGRESS NOTES Subjective no increase soa Vitals Vital Signs Date Time Temp Pulse Resp B/P Pulse Ox O2 Delivery O2 Flow Rate FiO2 09/12/16 14:10 97.9 119 20 118/80 97 Room Air 97.9 09/12/16 13:37 2.0 ROS: No Nausea, No Chest Pain, No Abdominal Pain, No Increase Cough General: Alert, No acute distress HEENT: Other (nc at perrl, throat nose clear) Lungs: Other (decrease bs) Cardiovascular: S1, S2 Abdomen: Soft, Non-tender, Other (no mass) Neuro Exam: Alert, Oriented, No Focal Findings Extremities: No Edema Skin: Warm Labs Laboratory Tests Test 09/12/16 06:40 Hemoglobin 8.5g/dL (12.0-15.5) Hematocrit 25.6% (36.0-47.0) Mean Corpuscular Hemoglobin Concent 33g/dL (31-37) Sodium Level 137mmol/L (136-145) Potassium Level 4.0mmol/L (3.5-5.1) Chloride Level 100mmol/L (98-107) Carbon Dioxide Level 28mmol/L (21-32) Anion Gap 9 (6-14) Blood Urea Nitrogen 8mg/dL (7-20) Creatinine 0.7mg/dL (0.6-1.0) Estimated GFR (Cockcroft-Gault) 86.9 Glucose Level 106mg/dL (70-99) Calcium Level 9.2mg/dL (8.5-10.1) Magnesium Level 1.4mg/dL (1.8-2.4) Thyroid Stimulating Hormone (TSH) 2.222uIU/mL (0.358-3.74) Laboratory Tests Test 09/12/16 06:40 Hemoglobin 8.5g/dL (12.0-15.5) Hematocrit 25.6% (36.0-47.0) Mean Corpuscular Hemoglobin Concent 33g/dL (31-37) Sodium Level 137mmol/L (136-145) Potassium Level 4.0mmol/L (3.5-5.1) Chloride Level 100mmol/L (98-107) Carbon Dioxide Level 28mmol/L (21-32) Anion Gap 9 (6-14) Blood Urea Nitrogen 8mg/dL (7-20) Creatinine 0.7mg/dL (0.6-1.0) Estimated GFR (Cockcroft-Gault) 86.9 Glucose Level 106mg/dL (70-99) Calcium Level 9.2mg/dL (8.5-10.1) Magnesium Level 1.4mg/dL (1.8-2.4) Thyroid Stimulating Hormone (TSH) 2.222uIU/mL (0.358-3.74) Medications Active Scripts Medications Dose Route/Sig Days Date Category Zyprexa (Olanzapine) 2.5 Mg Tablet 1 Tab PO QHS 01/15/16 Reported Tizanidine Hcl 4 Mg Tablet 4 Mg PO TID PRN 01/14/16 Reported Tramadol Hcl 50 Mg Tablet 50 Mg PO BID PRN 01/14/16 Reported Lialda (Mesalamine) 1.2 Gm Tablet.dr 4 Tab PO DAILY 01/14/16 Reported Comments cxr reviewed, 09/11 tiny right PTX/ volume loss RLL Impression . 1. Acute hypoxic respiratory failure POA,, secondary to extensive multilobar community-acquired pneumonia/ multiloculated effusion, empyema. 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 2. chronic obstructive pulmonary disease 3. severe leukocytosis POA. This is probably related to underlying extensive pneumonia and sepsis./ BM aspiration 08/29 , No leukemia 4. Severe protein-calorie malnutrition with an albumin level of 1.4. 5. Normal ejection fraction by echo with a pulmonary artery systolic pressure of 49. Suspect this is secondary to underlying chronic obstructive pulmonary disease. 7. smoker 8. Anemia Plan . air leak persisit will defer to CTS on management 1. Monitor daily cxr 2. follow pleural cultures/ cytology/ emperic PO antibiotic added to to severity of empyema for one week 4. Bronchodilators. 5. Deep venous thrombosis prophylaxis with scd 6. Stress ulcer prophylaxis. ALLAN OWENS MD Sep 12, 2016 14:19
[2016-09-12] MEDS ORDERED: ALTEPLASE 2 MG VIAL INT CAT ONE (14:30)
[2016-09-12] MEDS ORDERED: MAGNESIUM SULFATE 4GM 100 ML IV ONE (15:00)
--- NOTE | 2016-09-12 15:36 | CARD ---
APPROVED REPORT EXAM: Two-dimensional and M-mode echocardiogram with Doppler and color Doppler. Other Information Quality : Technically Limited Rhythm : TachycardiaTechnically limited study due to body habitus and fast respirations. INDICATION Arrhythmia 2D DIMENSIONS Left Atrium(2D)2.4 (1.6-4.0cm)IVSd0.7 (0.7-1.1cm) Aortic Root(2D)2.4 (2.0-3.7cm)LVDd4.4 (3.9-5.9cm) LVOT Diameter2.0 (1.8-2.4cm)PWd0.7 (0.7-1.1cm) LVDs3.3 (2.5-4.0cm)FS (%) 26.3 % SV45.8 mlLVEF(%)51.7 (>50%) Aortic Valve AoV Peak Lamberto.133.0cm/sAoV VTI18.6cm AO Peak GR.7.1mmHgLVOT Peak Lamberto.139.8cm/s LVOT VTI 20.34cmAO Mean GR.4mmHg VIDA (VMAX)2.76ll1JZP (VTI)3.31cm2 Mitral Valve MV E Thritoza70.6cm/sMV DECEL KOVU838qb MV A Niiiyyos178.2cm/sMV E Mean Gr.2mmHg MV ENZ50pyM/A Ratio0.8 MVA (PHT)4.76cm2 TDI E/Lateral E'8.5E/Medial E'10.5 Pulmonary Valve PV Peak Efznwerx565.3cm/sPV Peak Grad.4mmHg RVOT VTI13.9cm Tricuspid Valve TR P. Dapiynaz926io/sRAP IIXCSNNX1doMr TR Peak Gr.12joXhRYNF03vwYn LEFT VENTRICLE The left ventricle is normal size. There is normal left ventricular wall thickness. Left ventricle sy stolic function is normal. The Ejection Fraction is 50-55%. There is normal LV segmental wall motion. Tissue Doppler imaging reveals mild left ventricular diastolic dysfunction. RIGHT VENTRICLE The right ventricle is normal size. The right ventricular systolic function is normal. ATRIA The left atrium size is normal. The right atrium size is normal. The interatrial septum is intact wit h no evidence for an atrial septal defect or patent foramen ovale as noted on 2-D or Doppler imaging. AORTIC VALVE The aortic valve is not well visualized. Doppler and Color Flow revealed no significant aortic regurg itation. There is no significant aortic valvular stenosis. MITRAL VALVE The mitral valve leaflets are thickened. There is no mitral valve stenosis. Doppler and Color Flow re vealed trace to mild mitral regurgitation. TRICUSPID VALVE The tricuspid valve is not well visualized. Doppler and Color Flow revealed mild tricuspid regurgitat ion. The PA pressure was estimated at 52 mmHg. There is no tricuspid valve stenosis. PULMONIC VALVE The pulmonic valve is not well visualized. Doppler and Color Flow revealed no pulmonic valvular regur gitation. There is no pulmonic valvular stenosis. GREAT VESSELS The aortic root is normal in size. The IVC is normal in size and collapses >50% with inspiration. PERICARDIAL EFFUSION There is no evidence of significant pericardial effusion. Critical Notification Critical Value: No <Conclusion> Left ventricle systolic function is normal. The Ejection Fraction is 50-55%. There is normal LV segmental wall motion. Doppler and Color Flow revealed mild tricuspid regurgitation. The PA pressure was estimated at 52 mmH g.
--- NOTE | 2016-09-12 15:40 | RAD ---
Portable chest, 09/12/2016, 1:49 PM: History: Follow-up right lung surgery, chest tube off suction Comparison is made to the study of earlier the same day. The right PICC and right chest tube are unchanged in positions. The small right-sided pneumothorax has increased in size. Right-sided pleural thickening and underlying pulmonary infiltrates are unchanged. The left chest remains clear. IMPRESSION: 1. Increased in size of the small right pneumothorax since earlier in the day. 2. No other significant interval change.
[2016-09-12] MEDS: OLANZAPINE 2.5 MG TABLET PO SCH (20:52)
[2016-09-12] MEDS: ENOXAPARIN 40 MG/0.4 ML DISP.SYRIN. SQ SCH (20:52)
[2016-09-12] MEDS: NIACIN ER 500 MG TABLET.ER PO SCH (20:52)
[2016-09-12] MEDS: tiZANidine 4 MG TABLET. PO SCH (20:53)
[2016-09-13] MEDS: OXYCODONE IR 5 MG TABLET. PO PRN ×6 (01:32→22:22)
[2016-09-13] MEDS: FENTANYL PF 100 MCG/2 ML VIAL. IV PRN ×10 (01:32→22:23)
[2016-09-13 03:00] VITALS: BP 104/61
[2016-09-13] MEDS: MESALAMINE 1.2 GM TABLET.DR PO SCH (06:00)
--- NOTE | 2016-09-13 07:27 | RAD ---
Portable chest, 09/13/2016: History: Empyema Comparison is made to yesterday's study at 1:49 PM. The right PICC and right chest tube are unchanged in positions. The small right pneumothorax has decreased in volume. Right-sided pleural thickening and patchy infiltrates are unchanged. The heart size is normal. The left chest remains clear. IMPRESSION: 1. Interval decrease in size of the small right pneumothorax. 2. Stable moderate right pleural/parenchymal opacities.
[2016-09-13] MEDS: ALBUTEROL SULFATE 2.5 MG/3 ML NEBU. NEB SCH ×4 (07:28→20:04)
[2016-09-13 07:35] VITALS: BP 98/58
[2016-09-13] MEDS: CETIRIZINE HCL 10 MG TABLET PO SCH (08:21)
[2016-09-13] MEDS: CEFPODOXIME PROXETIL 100 MG TABLET PO SCH ×2 (08:23→20:04)
[2016-09-13] MEDS: PANTOPRAZOLE 40 MG TABLET. PO SCH (08:23)
[2016-09-13] MEDS: CHOLECALCIFEROL (VITAMIN D3) 1,000 UNIT TABLET PO SCH (08:24)
[2016-09-13] MEDS: SUMATRIPTAN SUCCINATE 100 MG TABLET. PO PRN ×2 (08:24→17:12)
[2016-09-13] MEDS: ASCORBIC ACID 500 MG TABLET PO SCH (08:24)
[2016-09-13] MEDS: LACTOBACILLUS ACIDOPH & BULGAR 1 TABLET. PO SCH ×3 (08:25→17:13)
[2016-09-13] MEDS: LIPASE/PROTEAS/AMYLASE 5/17/27 CAPSULE.DR. PO SCH ×3 (08:25→17:13)
--- NOTE | 2016-09-13 08:40 | PDOC ---
PULMONARY PROGRESS NOTES Subjective no increase soa Vitals Vital Signs Date Time Temp Pulse Resp B/P Pulse Ox O2 Delivery O2 Flow Rate FiO2 09/13/16 08:23 100 Nasal Cannula 2.0 09/13/16 08:18 18 09/13/16 07:35 97.5 103 98/58 97.5 ROS: No Nausea, No Chest Pain, No Abdominal Pain, No Increase Cough General: Alert, No acute distress HEENT: Other (nc at perrl, throat nose clear) Lungs: Other (decrease bs) Cardiovascular: S1, S2 Abdomen: Soft, Non-tender, Other (no mass) Neuro Exam: Alert, Oriented, No Focal Findings Extremities: No Edema Skin: Warm Labs Laboratory Tests Test 09/12/16 06:40 09/13/16 04:00 Hemoglobin 8.5g/dL (12.0-15.5) Hematocrit 25.6% (36.0-47.0) Mean Corpuscular Hemoglobin Concent 33g/dL (31-37) Sodium Level 137mmol/L (136-145) Potassium Level 4.0mmol/L (3.5-5.1) Chloride Level 100mmol/L (98-107) Carbon Dioxide Level 28mmol/L (21-32) Anion Gap 9 (6-14) Blood Urea Nitrogen 8mg/dL (7-20) Creatinine 0.7mg/dL (0.6-1.0) Estimated GFR (Cockcroft-Gault) 86.9 Glucose Level 106mg/dL (70-99) Calcium Level 9.2mg/dL (8.5-10.1) Magnesium Level 1.4mg/dL (1.8-2.4) 2.2mg/dL (1.8-2.4) Thyroid Stimulating Hormone (TSH) 2.222uIU/mL (0.358-3.74) Laboratory Tests Test 09/13/16 04:00 Magnesium Level 2.2mg/dL (1.8-2.4) Medications Active Scripts Medications Dose Route/Sig Days Date Category Zyprexa (Olanzapine) 2.5 Mg Tablet 1 Tab PO QHS 01/15/16 Reported Tizanidine Hcl 4 Mg Tablet 4 Mg PO TID PRN 01/14/16 Reported Tramadol Hcl 50 Mg Tablet 50 Mg PO BID PRN 01/14/16 Reported Lialda (Mesalamine) 1.2 Gm Tablet. 4 Tab PO DAILY 01/14/16 Reported Comments cxr reviewed, 09/11 tiny right PTX/ volume loss RLL Impression . 1. Acute hypoxic respiratory failure POA,, secondary to extensive multilobar community-acquired pneumonia/ multiloculated effusion, empyema. 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 2. chronic obstructive pulmonary disease 3. severe leukocytosis POA. This is probably related to underlying extensive pneumonia and sepsis./ BM aspiration 08/29 , No leukemia 4. Severe protein-calorie malnutrition with an albumin level of 1.4. 5. Normal ejection fraction by echo with a pulmonary artery systolic pressure of 49. Suspect this is secondary to underlying chronic obstructive pulmonary disease. 7. smoker 8. Anemia Path Segments of inflammatory exudate and fibromembranous tissue, right pleural drainage empyema and pulmonary decortication: - Acute inflammatory exudate consistent with empyema. - Segments of pleura showing acute and chronic inflammation and reactive fibrosis. Plan . air leak persisit, cxr increase PTX will defer to CTS on management 1. Monitor daily cxr 2. negative cultures and cytology 4. Bronchodilators. 5. Deep venous thrombosis prophylaxis with scd 6. Stress ulcer prophylaxis. ALLAN OWENS MD Sep 13, 2016 08:40
--- NOTE | 2016-09-13 09:04 | PDOC ---
Provider Note Provider Note DATE OF f/u: 09/13/2016 c/c: f/u of Leukocytosis in a patient with pneumonia. HISTORY OF PRESENT ILLNESS: The patient is a 55-year-old female who presented to [facility] Emergency Room 08/21/2016 with complaints of worsening cough and pleuritic chest pain and dyspnea of one week duration. In the Emergency Room, she was noted to have tachycardia and elevated WBC count of 57,000 and lactic acid of 4.1. She was diagnosed with sepsis. She underwent a chest x-ray that revealed right lower lobe pneumonia with small pneumonic effusion. She underwent CT scan of the abdomen on 08/21/2016 that revealed right lower lobe pneumonia. She underwent a CT scan of the chest on 08/22/2016 that revealed multilobar pneumonia, small to moderate multiloculated right pleural effusion, which might indicate a parapneumonic effusion versus empyema. There is also evidence of mild emphysema. She was started on antibiotics, however, she has progressive dyspnea and hypoxia and hence she was transferred to [facility]. Infectious Disease and pulmonary consultation was obtained, she was started on antibiotics. She underwent right chest tube insertion on 08/25/2016, 130 mL of whitish cloudy right pleural fluid was sent to the lab for evaluation. Her WBC count on 08/26/2016 was 32.2 and on 08/27/2016, it was 54.0. In addition, there was evidence of 23% bands, 5% metamyelocytes, 8%, myelocytes, 1% blasts and hence I was asked to see the patient for further evaluation of leukocytosis. Her hemoglobin was 11.9 with a platelet count of 536. PAST MEDICAL HISTORY: COPD. REVIEW OF SYSTEMS: no n/v, rt sided CP better PHYSICAL EXAMINATION: GENERAL APPEARANCE: The patient is a 55-year-old female who is in no acute cardiorespiratory distress. CHEST: Bilaterally symmetrical, decreased air entry on the right side. HEART: S1, S2 normal. ABDOMEN: Soft, nontender. No hepatosplenomegaly. CENTRAL NERVOUS SYSTEM: No focal neurological deficits. LABORATORY DATA: On 08/27/2016, WBC 54, hemoglobin 11.9, MCV 83, platelet count 536, bands 23%, metamyelocytes 5%, myelocytes 8% and peripheral smear on 08/26/2016 revealed presence of blasts at 1%. IMPRESSION AND PLAN: 1. Severe leukocytosis with a WBC count of 54,000 on 08/27/2016 and hemoglobin of 11.9, platelet count 536,000. There was evidence of elevated bands at 23%, elevated metamyelocytes of 5%, myelocytes of 8%, and 1% blasts. With the presence of sepsis, pneumonia and empyema, this is most likely reactive process. However, in view of worsening myelocytes and the presence of blasts, I would pursue with the bone marrow aspiration and biopsy to make sure that she does not have a primary bone marrow disorder. WBC now normal at 8.4 on 09/08/16, monitor cbc PRN S/p bone marrow bx 08/29/16. I d/w pathologist, no increased blasts to suggest leukemia, final results: The findings appear to be most compatible with a reactive neutrophilic leukocytosis and thrombocytosis. 2. Pneumonia. Continue antibiotics. Appreciate ID consultation. 3. Empyema. Status post right thoracentesis and chest tube placement. s/p Right VATS, drainage of empyema and pulmonary decortication 09/05/16. Chest tube in place. 4. Sepsis with lactic acidosis. 5. Chronic obstructive pulmonary disease. Appreciate pulm f/u. 6. Anemia -stable Hb 8.5 SARAVANAN RAMIREZ MD Sep 13, 2016 09:04
--- NOTE | 2016-09-13 10:00 | PDOC ---
PROGRESS NOTES Chief Complaint Chief Complaint 1. PNA: multilobar. w/ empyema 2. Empyema: s/p VATS, w/ chest tubes draining 3. COPD exacerbation: improving 4. Sepsis: resolved 5. HTN, tachycardia: vitals improved 6. BP at low normal, prob influenced by IV narcotics. IVF boluses PRN 7. Ulcerative Colitis: on mesalamine, pancreatic enzymes, macrobiotics 8. Depression: on zyprexa 9. Smoker: nicotine patch 10. Migraine: imitrex PRN 11. chest pain: musculoskeletal from chest tubes fentanyl, Oxy PO PRN History of Present Illness History of Present Illness Chest tube remains as still persistent air leak Fentanyl patch applied 2:30 PM yesterday - pt ahs been requesting IV fentanyly q2 RTC Onset of patch is 2 hrs, time to peak is anywhere between 20-72 hrs Dw RN Donnie Will keep patch fo now, but júnior though of starting long acting PO narcotic is in the horizon BOwels are moving very well (soft side has hx UC) Vitals Vitals Vital Signs Date Time Temp Pulse Resp B/P Pulse Ox O2 Delivery O2 Flow Rate FiO2 09/13/16 09:25 20 100 Nasal Cannula 2.0 09/13/16 07:35 97.5 103 98/58 97.5 Physical Exam Physical Exam GENERAL: NAD, Alert HEENT: PERRL, OC/OP NECK: Supple, no JVD, no LN LUNGS: Clear HEART: S1S2, no gallop, no murmur ABD: Soft, NT, no organomegaly, no rebound EXT: No edema, no cyanosis RN CLINICAL RESOURCE: Alert, oriented x 3, no focal neurologic deficit SKIN: No rash IV: ok General: Alert, Oriented X3, Cooperative, No acute distress Heart: Regular rate (tachycardic), Normal S1, Normal S2, No murmurs, Other ( tele: SR/ST) Lungs: Other (decrease bs) Abdomen: Normal bowel sounds, Soft, No tenderness Extremities: No edema, Normal pulses Skin: No rashes Labs LABS Laboratory Tests Test 09/13/16 04:00 Magnesium Level 2.2mg/dL (1.8-2.4) Review of Systems Review of Systems all 14pt reviewed, pertinent in the hPI No inc SOA PAin CT site Soft stools Assessment and Plan Assessmemt and Plan Cont patch for now PO long acting might be in the horizon to start [employer] BAUTISTA complex Problems Medical Problems: (1) CAP (community acquired pneumonia) Status: Acute (2) Empyema of lung Status: Acute Problems: Comment Review of Relevant I have reviewed the following items randi (where applicable) has been applied. Labs Laboratory Tests Test 09/12/16 06:40 09/13/16 04:00 Hemoglobin 8.5g/dL (12.0-15.5) Hematocrit 25.6% (36.0-47.0) Mean Corpuscular Hemoglobin Concent 33g/dL (31-37) Sodium Level 137mmol/L (136-145) Potassium Level 4.0mmol/L (3.5-5.1) Chloride Level 100mmol/L (98-107) Carbon Dioxide Level 28mmol/L (21-32) Anion Gap 9 (6-14) Blood Urea Nitrogen 8mg/dL (7-20) Creatinine 0.7mg/dL (0.6-1.0) Estimated GFR (Cockcroft-Gault) 86.9 Glucose Level 106mg/dL (70-99) Calcium Level 9.2mg/dL (8.5-10.1) Magnesium Level 1.4mg/dL (1.8-2.4) 2.2mg/dL (1.8-2.4) Thyroid Stimulating Hormone (TSH) 2.222uIU/mL (0.358-3.74) Laboratory Tests Test 09/13/16 04:00 Magnesium Level 2.2mg/dL (1.8-2.4) Microbiology 09/05/16 Anaerobic/Aerobic Culture - Final, Complete 09/05/16 Anaerobic Culture Result 1 (BRUCE) - Final, Complete 09/05/16 Aerobic Culture - Final, Complete 09/05/16 Aerobic Culture Result 1 (BRUCE) - Final, Complete 09/05/16 Anaerobic/Aerobic Culture - Final, Complete 09/05/16 Anaerobic Culture Result 1 (BRUCE) - Final, Complete 09/05/16 Aerobic Culture - Final, Complete 09/05/16 Aerobic Culture Result 1 (BRUCE) - Final, Complete Medications Current Medications Acetaminophen (Tylenol) 325 mg PRN Q6HRS PRN PO MILD PAIN / TEMP Last administered on 08/26/16t 08:29; Start 08/25/16 at 12:45 Acetaminophen/ Hydrocodone Bitart (Lortab 5/325) 1 tab PRN Q6HRS PRN PO MODERATE PAIN Last administered on 08/27/16 02:06; Start 08/25/16 at 12:45; Stop 08/29/16 at 16:41; Status DC Hydralazine HCl (Apresoline) 10 mg PRN Q4HRS PRN IVP ELEVATED BP, SEE COMMENTS Last administered on 08/26/16 05:07; Start 08/25/16 at 12:45 Ondansetron HCl (Zofran) 4 mg PRN Q8HRS PRN IV NAUSEA/VOMITING Last administered on 08/25/16 15:42; Start 08/25/16 at 12:45; Stop 08/27/16 at 08:44 ; Status DC Albuterol Sulfate 2.5 mg 2.5 mg PRN Q4HRS PRN NEB SHORTNESS OF BREATH; Start at 12:45 Piperacillin Sod/ Tazobactam Sod 3.375 gm/Sodium Chloride 50 ml @ 100 mls/hr Q6HRS IV Last administered on 09/08/16 06:00; Start 08/25/16 at 13:00; Stop at 07:53; Status DC Linezolid (Zyvox Premix) 300 ml @ 300 mls/hr Q12HR IV Last administered on 21:39; Start 08/25/16 at 14:00; Stop 09/08/16 at 07:52; Status DC Piperacillin Sod/ Tazobactam Sod 1 each 1 each PRN DAILY PRN MC SEE COMMENTS; Start 08/25/16 at 13:45; Stop 08/27/16 at 12:41; Status DC Levofloxacin/ Dextrose (LEVAQUIN 750mg PREMIX) 150 ml @ 100 mls/hr Q24H IV Last administered on 08/28/16 13:51; Start 08/25/16 at 14:00; Stop 08/28/16 at 14:37; Status DC Lidocaine/Sodium Bicarbonate (Buffered Lidocaine 1%) 20 ml STK-MED ONCE IJ ; Start 08/25/16 at 14:00; Stop 08/25/16 at 14:01; Status DC Lidocaine/Sodium Bicarbonate (Buffered Lidocaine 1%) 5 ml 1X ONCE IJ Last administered on 08/25/16 14:59; Start 08/25/16 at 15:00; Stop 08/25/16 at 15:01 ; Status DC Info (Do NOT chart on this placeholder) 1 each 1X ONCE MC ; Start 08/25/16 at 17:00; Stop 08/25/16 at 17:01; Status UNV Pneumococcal Polyvalent Vaccine (Do NOT chart on this placeholder) 1 each 1X ONCE MC ; Start 08/25/16 at 17:00; Stop 08/25/16 at 17:01; Status UNV Influenza Virus Vaccine Quadrival (Fluarix Quad [id number] Syringe) 0.5 ml ONCE ONCE VAX IM ; Start 08/26/16 at 09:00; Stop 08/26/16 at 09:01; Status DC Pneumococcal Polyvalent Vaccine (Pneumovax 23) 0.5 ml ONCE ONCE VAX IM ; Start 08/26/16 at 09:00; Stop 08/26/16 at 09:01; Status DC Enoxaparin Sodium (Lovenox 40mg Syringe) 40 mg Q24H SQ Last administered on 08:19; Start 08/26/16 at 09:00; Stop 08/29/16 at 11:45; Status DC Fentanyl Citrate (Fentanyl 2ml Vial) 25 mcg PRN Q4HRS PRN IV PAIN Last administered on 08/27/16 06:13; Start 08/26/16 at 08:30; Stop 08/29/16 at 15:07 ; Status DC Potassium Chloride (Klor-Con) 40 meq 1X ONCE PO Last administered on 11:24; Start 08/26/16 at 10:45; Stop 08/26/16 at 10:49; Status DC Mesalamine (Lialda) 4.8 gm DAILY06 PO Last administered on 09/13/16 06:00; Start 08/26/16 at 13:30 Olanzapine (Zyprexa) 2.5 mg HS PO Last administered on 09/12/16 20:52; Start 08/26/16 at 21:00 Sumatriptan Succinate (Imitrex) 100 mg PRN Q2HR PRN PO MIGRAINE HEADACHE Last administered on 09/13/16 08:24; Start 08/26/16 at 13:30 Tizanidine HCl (Zanaflex) 4 mg QHS PO Last administered on 08/26/16 19:57; Start 08/26/16 at 21:00; Stop 08/26/16 at 21:00; Status DC Tramadol HCl (Ultram) 50 mg BID PO Last administered on 08/31/16 07:48; Start 08/26/16 at 14:00; Stop 08/31/16 at 15:54; Status DC Ascorbic Acid (Vitamin C) 1,000 mg DAILY PO Last administered on 09/13/16 08: 24; Start 08/27/16 at 09:00 Amylase/Lipase/ Protease (Zenpep 5,000) 5 cap TIDWMEALS PO Last administered on 09/13/16 08:25; Start 08/26/16 at 17:00 Niacin (Slo-Niacin) 500 mg QHS PO Last administered on 09/12/16 20:52; Start 08/26/16 at 21:00 Pantoprazole Sodium (Protonix) 40 mg DAILYAC PO Last administered on 09/13/16 08:23; Start 08/26/16 at 14:00 Non-Formulary Medication 1 tab DAILY PO ; Start 08/27/16 at 09:00; Status UNV Diphenoxylate HCl/ Atropine (Lomotil) 1 tab PRN QID PRN PO DIARRHEA Last administered on 09/03/16 17:27; Start 08/26/16 at 13:45 Tizanidine HCl (Zanaflex) 20 mg QHS PO Last administered on 09/12/16 20:53; Start 08/26/16 at 21:00 Acetaminophen/ Hydrocodone Bitart (Lortab 5/325) 2 tab PRN Q6HRS PRN PO SEVERE PAIN Last administered on 08/29/16 10:47; Start 08/27/16 at 04:45; Stop at 16:41; Status DC Ondansetron HCl (Zofran) 4 mg PRN Q6HRS PRN IV NAUSEA/VOMITING Last administered on 09/05/16 23:16; Start 08/27/16 at 08:42 Vancomycin HCl 125 mg [id number] PO Last administered on 08/28/16 20:54; Start at 16:00; Stop 08/29/16 at 10:24; Status DC Lactobacillus Acidophilus 1 tab 1 tab TIDWMEALS PO Last administered on 08:25; Start 08/27/16 at 17:00 Sodium Chloride (Iv Sodium Chloride 0.9% 500ml Bag) 500 ml @ 500 mls/hr 1X ONCE IV Last administered on 08/28/16 00:52; Start 08/28/16 at 01:00; Stop at 01:59; Status DC Nicotine (Nicoderm Cq 21mg) 1 patch PRN DAILY PRN TD SMOKING CESSATION; Start 08/28/16 at 09:30 Cetirizine HCl (Zyrtec) 10 mg DAILY PO Last administered on 09/13/16 08:21; Start 08/28/16 at 10:00 Vitamin D (Vitamin D3) 1,000 unit DAILY PO Last administered on 09/13/16 08:24 ; Start 08/28/16 at 10:00 Iohexol (Omnipaque 300 Mg/ml) 75 ml 1X ONCE IV Last administered on 08/28/16 10:53; Start 08/28/16 at 10:15; Stop 08/28/16 at 10:16; Status DC Info (Do NOT chart on this entry -- for MONITORING) 1 each PRN DAILY PRN MC SEE COMMENTS; Start 08/28/16 at 10:00; Stop 08/30/16 at 09:59; Status DC Potassium Chloride (Klor-Con) 40 meq 1X ONCE PO Last administered on 13:52; Start 08/28/16 at 13:00; Stop 08/28/16 at 13:01; Status DC Lidocaine/Sodium Bicarbonate (Buffered Lidocaine 1%) 20 ml STK-MED ONCE IJ ; Start 08/29/16 at 08:36; Stop 08/29/16 at 08:37; Status DC Naloxone HCl (Narcan) 0.4 mg STK-MED ONCE .ROUTE ; Start 08/29/16 at 08:37; Stop 08/29/16 at 08:38; Status DC Flumazenil (Romazicon) 0.5 mg STK-MED ONCE IV ; Start 08/29/16 at 08:37; Stop at 08:38; Status DC Midazolam HCl (Versed) 5 mg STK-MED ONCE .ROUTE ; Start 08/29/16 at 08:37; Stop 08/29/16 at 08:38; Status DC Fentanyl Citrate (Fentanyl 5ml Vial) 250 mcg STK-MED ONCE .ROUTE ; Start at 08:37; Stop 08/29/16 at 08:38; Status DC Lidocaine/Sodium Bicarbonate (Buffered Lidocaine 1%) 6 ml 1X ONCE IJ Last administered on 08/29/16 09:09; Start 08/29/16 at 09:15; Stop 08/29/16 at 09:16 ; Status DC Midazolam HCl (Versed) 2 mg 1X ONCE IV Last administered on 08/29/16 09:08; Start 08/29/16 at 09:15; Stop 08/29/16 at 09:16; Status DC Fentanyl Citrate (Fentanyl 5ml Vial) 100 mcg 1X ONCE IV Last administered on 09:08; Start 08/29/16 at 09:15; Stop 08/29/16 at 09:16; Status DC Enoxaparin Sodium (Lovenox 40mg Syringe) 40 mg Q24H SQ Last administered on 16:01; Start 08/29/16 at 16:00; Stop 08/31/16 at 10:23; Status DC Acetaminophen/ Hydrocodone Bitart (Lortab 5/325) 1 tab PRN Q4HRS PRN PO MODERATE PAIN; Start 08/29/16 at 16:45; Stop 08/31/16 at 15:54; Status DC Acetaminophen/ Hydrocodone Bitart (Lortab 5/325) 2 tab PRN Q4HRS PRN PO SEVERE PAIN Last administered on 08/31/16 15:14; Start 08/29/16 at 16:45; Stop at 15:54; Status DC Lidocaine/Sodium Bicarbonate (Buffered Lidocaine 1%) 20 ml STK-MED ONCE IJ ; Start 08/30/16 at 13:57; Stop 08/30/16 at 13:58; Status DC Midazolam HCl (Versed) 2 mg STK-MED ONCE .ROUTE ; Start 08/30/16 at 14:22; Stop 08/30/16 at 14:23; Status DC Fentanyl Citrate (Fentanyl 2ml Vial) 100 mcg STK-MED ONCE .ROUTE ; Start at 14:22; Stop 08/30/16 at 14:23; Status DC Lidocaine/Sodium Bicarbonate (Buffered Lidocaine 1%) 4 ml 1X ONCE IJ Last administered on 08/30/16 15:08; Start 08/30/16 at 14:50; Stop 08/30/16 at 15:04 ; Status DC Midazolam HCl (Versed) 1 mg 1X ONCE IV Last administered on 08/30/16 15:09; Start 08/30/16 at 14:45; Stop 08/30/16 at 15:04; Status DC Fentanyl Citrate (Fentanyl 2ml Vial) 50 mcg 1X ONCE IV Last administered on 15:09; Start 08/30/16 at 14:45; Stop 08/30/16 at 15:05; Status DC Metoprolol Tartrate 25 mg 25 mg BID PO Last administered on 08/30/16 21:44; Start 08/30/16 at 21:00; Stop 08/31/16 at 17:09; Status DC Alteplase, Recombinant 5 mg/ Sterile Water 50 ml @ 5 mls/hr 1X ONCE IV ; Start 08/31/16 at 10:30; Stop 08/31/16 at 15:27; Status DC Alteplase, Recombinant 5 mg/ Sterile Water 50 ml @ 5 mls/hr 1X ONCE IV ; Start 08/31/16 at 10:45; Stop 08/31/16 at 15:27; Status DC Alteplase, Recombinant 5 mg/ Sterile Water 50 ml @ 5 mls/hr 1X ONCE INT CAT Last administered on 08/31/16 12:40; Start 08/31/16 at 15:27; Stop 08/31/16 at 20:29; Status DC Alteplase, Recombinant/ Sterile Water (Cathflo) 50 ml @ 5 mls/hr 1X ONCE INT CAT Last administered on 08/31/16 12:40; Start 08/31/16 at 15:27; Stop at 20:44; Status DC Oxycodone HCl (Roxicodone) 5 mg PRN Q3HRS PRN PO MODERATE - SEVERE PAIN Last administered on 09/13/16 08:23; Start 08/31/16 at 16:00 Morphine Sulfate 2 mg PRN Q6HRS PRN IV PAIN; Start 08/31/16 at 16:00; Stop at 18:07; Status DC Oxycodone HCl (Roxicodone) 10 mg PRN Q3HRS PRN PO MODERATE - SEVERE PAIN Last administered on 09/12/16 20:06; Start 08/31/16 at 16:00 Fentanyl Citrate (Fentanyl 2ml Vial) 50 mcg PRN Q2HR PRN IV PAIN SEV Last administered on 09/08/16 09:08; Start 08/31/16 at 18:15; Stop 09/08/16 at 10:32 ; Status DC Morphine Sulfate 2 mg 2 mg ONCE ONCE IV Last administered on 08/31/16 18:05; Start 08/31/16 at 20:45; Stop 08/31/16 at 20:46; Status DC Sodium Chloride (Iv Sodium Chloride 0.9% 500ml Bag) 500 ml @ 500 mls/hr 1X ONCE IV Last administered on 09/01/16 06:30; Start 09/01/16 at 06:30; Stop at 07:29; Status DC Alteplase, Recombinant (Cathflo) 2 mg 1X ONCE INT CAT Last administered on 06:35; Start 09/01/16 at 07:00; Stop 09/01/16 at 07:01; Status DC Albuterol Sulfate 2.5 mg 2.5 mg RTQID NEB Last administered on 09/13/16 07:28 ; Start 09/01/16 at 12:00 Sodium Chloride 1,000 ml @ 1,000 mls/hr 1X ONCE IV Last administered on 12:09; Start 09/01/16 at 11:45; Stop 09/01/16 at 12:44; Status DC Alteplase, Recombinant 5 mg/ Sterile Water 50 ml @ 5 mls/hr 1X ONCE INT CAT Last administered on 09/01/16 12:30; Start 09/01/16 at 12:30; Stop 09/01/16 at 22:29; Status DC Alteplase, Recombinant/ Sterile Water (Cathflo) 50 ml @ 5 mls/hr 1X ONCE INT CAT Last administered on 09/01/16 12:30; Start 09/01/16 at 12:30; Stop at 22:29; Status DC Alteplase, Recombinant 2 mg 2 mg 1X ONCE INT CAT Last administered on 15:18; Start 09/01/16 at 13:00; Stop 09/01/16 at 13:01; Status DC Sodium Chloride (Iv Sodium Chloride 0.9% 1000ml Bag) 1,000 ml @ 1,000 mls/hr 1X ONCE IV Last administered on 09/01/16t 23:45; Start 09/01/16 at 23:45; Stop 09/02/16 at 00:44; Status DC Fentanyl Citrate (Fentanyl 2ml Vial) 50 mcg 1X ONCE IV Last administered on 15:30; Start 09/03/16 at 15:30; Stop 09/03/16 at 15:35; Status DC Bupivacaine HCl (Sensorcaine Mpf 0.5%) 30 ml STK-MED ONCE .ROUTE ; Start at 12:12; Stop 09/05/16 at 12:13; Status DC Lidocaine HCl 20 ml STK-MED ONCE .ROUTE ; Start 09/05/16 at 12:13; Stop at 12:14; Status DC Cellulose 1 each STK-MED ONCE .ROUTE ; Start 09/05/16 at 12:13; Stop 09/05/16 at 12:14; Status DC Lidocaine HCl 100 mg 100 mg STK-MED ONCE .ROUTE ; Start 09/05/16 at 13:16; Stop 09/05/16 at 13:17; Status DC Propofol (Diprivan) 100 ml @ As Directed STK-MED ONCE IV ; Start 09/05/16 at 13 :16; Stop 09/05/16 at 13:17; Status DC Fentanyl Citrate (Fentanyl 2ml Vial) 100 mcg STK-MED ONCE .ROUTE ; Start at 13:16; Stop 09/05/16 at 13:17; Status DC Rocuronium [place] (Zemuron) 50 mg STK-MED ONCE .ROUTE ; Start 09/05/16 at 13:16 ; Stop 09/05/16 at 13:17; Status DC Lidocaine HCl 1 ml 1 ml STK-MED ONCE .ROUTE ; Start 09/05/16 at 13:20; Stop at 13:21; Status DC Lactated Ringer's (Iv Lactated Ringers) 1,000 ml @ 100 mls/hr Q10H IV Last administered on 09/06/16t 06:22; Start 09/05/16 at 14:15; Stop 09/06/16 at 18:30 ; Status DC Lidocaine HCl (Xylocaine-Mpf 1% Vial) 2 ml 1X ONCE INJ Last administered on t 13:35; Start 09/05/16 at 14:30; Stop 09/05/16 at 14:31; Status DC Dexamethasone Sodium Phosphate (Decadron) 20 mg STK-MED ONCE .ROUTE ; Start at 14:49; Stop 09/05/16 at 14:50; Status DC Sevoflurane (Ultane) 90 ml STK-MED ONCE IH ; Start 09/05/16 at 14:49; Stop 09/05 at 14:50; Status DC Fentanyl Citrate (Fentanyl 2ml Vial) 100 mcg STK-MED ONCE .ROUTE ; Start at 15:07; Stop 09/05/16 at 15:08; Status DC Metoprolol Tartrate (Lopressor) 5 mg STK-MED ONCE .ROUTE ; Start 09/05/16 at 15: 09; Stop 09/05/16 at 15:10; Status DC Ondansetron HCl (Zofran) 4 mg STK-MED ONCE .ROUTE ; Start 09/05/16 at 15:23; Stop 09/05/16 at 15:24; Status DC Glycopyrrolate (Robinul) 1 mg STK-MED ONCE .ROUTE ; Start 09/05/16 at 15:23; Stop 09/05/16 at 15:24; Status DC Neostigmine Methylsulfate 5 mg STK-MED ONCE .ROUTE ; Start 09/05/16 at 15:23; Stop 09/05/16 at 15:24; Status DC Rocuronium [place] (Zemuron) 50 mg STK-MED ONCE .ROUTE ; Start 09/05/16 at 15:24 ; Stop 09/05/16 at 15:25; Status DC Ondansetron HCl (Zofran) 4 mg PRN Q6HRS PRN IV Nausea; Start 09/05/16 at 17:15 ; Stop 09/05/16 at 19:00; Status DC Fentanyl Citrate (Fentanyl 2ml Vial) 25 mcg PRN Q5MIN PRN IV MILD PAIN; Start 09/05/16 at 17:15; Stop 09/05/16 at 19:00; Status DC Fentanyl Citrate (Fentanyl 2ml Vial) 50 mcg PRN Q5MIN PRN IV MODERATE PAIN; Start 09/05/16 at 17:15; Stop 09/05/16 at 19:00; Status DC Morphine Sulfate 1 mg 1 mg PRN Q10MIN PRN IV SEVERE PAIN; Start 09/05/16 at 17: 15; Stop 09/05/16 at 19:00; Status DC Lactated Ringer's (Iv Lactated Ringers) 1,000 ml @ 0 mls/hr Q0M IV ; Start at 17:06; Stop 09/05/16 at 19:00; Status DC Lidocaine HCl 2 ml 1X PRN PRN ID IV START; Start 09/05/16 at 17:15; Stop at 19:00; Status DC Hydromorphone HCl (Dilaudid) 0.5 mg PRN Q10MIN PRN IV SEV PAIN,Second choice; Start 09/05/16 at 17:15; Stop 09/05/16 at 19:00; Status DC Prochlorperazine Edisylate (Compazine) 5 mg PACU PRN PRN IV NAUSEA; Start 09/05 at 17:15; Stop 09/05/16 at 19:00; Status DC Phenylephrine HCl (Fortino-Synephrine Inj) 10 mg STK-MED ONCE .ROUTE ; Start at 17:37; Stop 09/05/16 at 17:38; Status DC Sodium Bicarbonate 50 meq 50 meq STK-MED ONCE .ROUTE ; Start 09/05/16 at 17:58; Stop 09/05/16 at 17:59; Status DC Lactated Ringer's 500 ml @ 75 mls/hr 1X ONCE IV Last administered on t 22:02; Start 09/05/16 at 21:30; Stop 09/06/16 at 04:09; Status DC Sodium Chloride (Iv Sodium Chloride 0.9% 500ml Bag) 500 ml @ 500 mls/hr 1X ONCE IV Last administered on 09/07/16t 00:17; Start 09/07/16 at 00:00; Stop at 00:59; Status DC Fentanyl Citrate (Fentanyl 2ml Vial) 75 mcg PRN Q2HR PRN IV PAIN SEV Last administered on 09/13/16 08:18; Start 09/08/16 at 11:00 Morphine Sulfate (Ms Contin) 15 mg BID PO Last administered on 09/09/16 08:46 ; Start 09/08/16 at 11:00; Stop 09/09/16 at 17:13; Status DC Cefpodoxime Proxetil (Vantin) 100 mg BID PO Last administered on 09/13/16 08: 23; Start 09/08/16 at 14:00 Enoxaparin Sodium (Lovenox 30mg Syringe) 30 mg Q24H SQ Last administered on 20:53; Start 09/08/16 at 21:00; Stop 09/09/16 at 08:39; Status DC Enoxaparin Sodium (Lovenox 40mg Syringe) 40 mg Q24H SQ Last administered on 20:52; Start 09/09/16 at 21:00 Fentanyl Citrate (Fentanyl 2ml Vial) 100 mcg 1X ONCE IV Last administered on 13:41; Start 09/10/16 at 13:15; Stop 09/10/16 at 13:16; Status DC Potassium Chloride (Klor-Con) 20 meq 1X ONCE PO Last administered on 13:41; Start 09/10/16 at 13:30; Stop 09/10/16 at 13:31; Status DC Fentanyl (Duragesic 75mcg/ Hr Patch) 1 patch Q3DAYS TD Last administered on 12:25; Start 09/12/16 at 11:00 Docusate Sodium (Colace) 100 mg BID PO ; Start 09/12/16 at 12:00; Stop 09/12/16 at 12:00; Status DC Polyethylene Glycol (miraLAX PACKET) 17 gm DAILY PO ; Start 09/12/16 at 12:00; Stop 09/12/16 at 12:00; Status DC Magnesium Hydroxide 2400 mg 2,400 mg PRN DAILY PRN PO CONSTIPATION; Start 09/12 at 11:15; Stop 09/12/16 at 11:30; Status DC Magnesium Sulfate/ Dextrose (Magnesium Sulfate PREMIX 4GM) 100 ml @ 25 mls/hr 1X ONCE IV Last administered on 09/12/16 16:34; Start 09/12/16 at 15:00; Stop 09/12/16 at 18:59; Status DC Alteplase, Recombinant (Cathflo) 2 mg 1X ONCE INT CAT Last administered on 15:22; Start 09/12/16 at 14:30; Stop 09/12/16 at 14:31; Status DC Active Scripts Active Reported [diphen/atropine] 2.5 Mg PO PRN QID PRN Prilosec Otc (Omeprazole Magnesium) 20 Mg Tablet.dr 1 Tab PO DAILY Lialda (Mesalamine) 1.2 Gm Tablet.dr 4 Tab PO DAILY06 Tizanidine Hcl 4 Mg Tablet 5 Tab PO QHS Olanzapine 2.5 Mg Tablet 2.5 Mg PO HS Zyrtec (Cetirizine Hcl) 10 Mg Capsule 10 Mg PO DAILY Dhea 50 Mg Tablet (Prasterone (Dhea)/Calcium Carb) 1 Each Tablet 1 Tab PO DAILY Niacin 500 Mg Tablet 500 Mg PO HS Vitamin D3 (Cholecalciferol (Vitamin D3)) 1,000 Unit Capsule 1,000 Unit PO DAILY Vitamin C (Ascorbic Acid) 1,000 Mg Tab.chew 1,000 Mg PO DAILY Imitrex (Sumatriptan Succinate) 100 Mg Tablet 100 Mg PO ONCE PRN Tramadol Hcl 50 Mg Tablet 4 Tab PO BID Zenpep Dr 25,000 Units Capsule (Lipase/Protease/Amylase) 1 Each Capsule.dr 1 Each PO TIDAFTMEAL Vitals/I & O Vital Sign - Last 24 Hours 09/12/16 09/12/16 09/12/16 09/12/16 10:11 10:37 11:07 11:18 Temp 97.8 97.8 Pulse 124 Resp 20 20 20 B/P 112/66 Pulse Ox 94 94 98 O2 Delivery Nasal Cannula Room Air Nasal Cannula Nasal Cannula O2 Flow Rate 2.0 2.0 2.0 2.0 09/12/16 09/12/16 09/12/16 09/12/16 11:23 12:25 12:29 13:37 Temp 98.1 97.9 98.1 97.9 Pulse 128 119 Resp 20 22 20 B/P 107/72 118/80 Pulse Ox 94 94 94 97 O2 Delivery Nasal Cannula Nasal Cannula Nasal Cannula Nasal Cannula O2 Flow Rate 2.0 2.0 2.0 2.0 09/12/16 09/12/16 09/12/16 09/12/16 14:10 15:12 15:14 15:20 Temp 97.9 97.9 Pulse 119 Resp 20 22 22 B/P 118/80 Pulse Ox 97 97 97 O2 Delivery Room Air Nasal Cannula Nasal Cannula Room Air O2 Flow Rate 2.0 2.0 2.0 09/12/16 09/12/16 09/12/16 09/12/16 15:55 16:30 17:17 19:00 Temp 98.1 98.1 Pulse 114 Resp 20 18 B/P 117/75 Pulse Ox 97 97 99 O2 Delivery Nasal Cannula Nasal Cannula Room Air Room Air O2 Flow Rate 2.0 2.0 2.0 09/12/16 09/12/16 09/12/16 09/12/16 19:57 20:00 20:06 20:09 Resp 20 20 Pulse Ox 99 99 94 O2 Delivery Nasal Cannula Nasal Cannula Nasal Cannula Nasal Cannula O2 Flow Rate 2.0 2.0 2.0 2.0 09/12/16 09/12/16 09/12/16 09/13/16 21:06 22:16 23:00 01:32 Temp 97.9 97.9 Pulse 108 Resp 16 16 16 B/P 94/59 Pulse Ox 94 94 100 100 O2 Delivery Nasal Cannula Nasal Cannula Room Air Nasal Cannula O2 Flow Rate 2.0 2.0 2.0 09/13/16 09/13/16 09/13/16 09/13/16 01:32 03:00 04:03 06:01 Temp 98.0 98.0 Pulse 98 Resp 18 B/P 104/61 Pulse Ox 100 100 100 100 O2 Delivery Nasal Cannula Nasal Cannula Nasal Cannula Nasal Cannula O2 Flow Rate 2.0 2.0 2.0 2.0 09/13/16 09/13/16 09/13/16 09/13/16 06:01 07:30 07:35 08:00 Temp 97.5 97.5 Pulse 103 Resp 19 B/P 98/58 Pulse Ox 100 100 O2 Delivery Nasal Cannula Nasal Cannula Nasal Cannula Nasal Cannula O2 Flow Rate 2.0 2.0 2.0 09/13/16 09/13/16 09/13/16 09/13/16 08:18 08:23 08:50 09:25 Resp 18 20 20 Pulse Ox 100 100 100 100 O2 Delivery Nasal Cannula Nasal Cannula Nasal Cannula Nasal Cannula O2 Flow Rate 2.0 2.0 2.0 2.0 Intake and Output 09/12/16 09/12/16 09/13/16 15:00 23:00 07:00 Intake Total 240 ml 300 ml 800 ml Output Total 2715 ml 1215 ml Balance 240 ml -2415 ml -415 ml ABDELRAHMAN KOENIG MD Sep 13, 2016 10:00
[2016-09-13 10:32] VITALS: BP 120/68
[2016-09-13] MEDS ORDERED: TALC 5 GM VIAL. IPL ONE (14:00)
[2016-09-13] MEDS ORDERED: TALC IPL ONE ×2 (14:00→14:30)
[2016-09-13] MEDS ORDERED: LIDOCAINE 1% IPL ONE (14:00)
[2016-09-13] MEDS ORDERED: LIDOCAINE 1% Multi-Dose 20 ML VIAL. IJ ONE (14:00)
[2016-09-13] MEDS ORDERED: TOTAL VOLUME IPL ONE ×2 (14:00→14:30)
[2016-09-13 14:19] VITALS: BP 131/69
[2016-09-13] MEDS ORDERED: LIDOCAINE 1% PF 30 ML VIAL. INJ ONE (14:30)
[2016-09-13] MEDS ORDERED: LIDOCAINE 1% 20 ML VIAL. IJ ONE (14:30)
[2016-09-13] MEDS ORDERED: LIDOCAINE 1% PF 5 ML VIAL. INJ ONE (14:30)
--- NOTE | 2016-09-13 14:33 | PDOC ---
Progress Note Subjective Subjective Doing well. No other issues. Air leak persists. ROS ROS No nausea No vomiting No pain No rash Vital Sign Vital Signs Vital Signs Date Time Temp Pulse Resp B/P Pulse Ox O2 Delivery O2 Flow Rate FiO2 09/13/16 14:19 98.2 19 131/69 96 Nasal Cannula 2.0 98.2 09/13/16 10:32 84 Physical Exam PHYSICAL EXAM GENERAL: NAD, Alert HEENT: PERRL, OC/OP NECK: Supple, no JVD, no LN LUNGS: Clear HEART: S1S2, no gallop, no murmur ABD: Soft, NT, no organomegaly, no rebound EXT: No edema, no cyanosis RESEARCH ENGINEER: Alert, oriented x 3, no focal neurologic deficit SKIN: No rash IV: ok Labs Lab Laboratory Tests Test 09/13/16 04:00 Magnesium Level 2.2mg/dL (1.8-2.4) Objective Assessment POD#8 s/p R VATS, drainage of empyema and pulmonary decortication. Prolonged air leak. Right lung does not tolerate water seal Plan Plan of Care Will attempt bedside talc slurry pleurodesis Keep chest tube to suction YOVANI WHALEY MD Sep 13, 2016 14:33
--- NOTE | 2016-09-13 16:16 | PDOC4 ---
PROCEDURE Procedure Pre procedure diagnosis Prolonged air leak s/p right VATS pulmonary decortication Post procedure diagnosis Prolonged air leak s/p right VATS pulmonary decortication Procedure Right slurry talc pleurodesis Attending Yovani Whaley MD [employer] Supervisor Brianne Balderrama NP Complication None Description The patient was placed in Trendelenburg position. The chest tube was disconnected from the pleurovac. Chlorhexidine was used to sterilize the tube. 20 mL's of 1% lidocaine were injected into the right pleural space through the chest tube for patient comfort. We then injected 5 g of talc powder mixed in 50 mL's of sterile normal saline. The chest tube was clamped for one hour following instillation of the talc. Chest tube was then unclamped and hooked up to a Pleur-evac on -20 cm water suction. There were no complications. Plan Keep on suction for 24-48 hours and we'll then reassess for possible chest tube removal. Continue with daily chest x-rays YOVANI WHALEY MD Sep 13, 2016 16:16
[2016-09-13] MEDS ORDERED: ACETAMINOPHEN 325 MG TABLET. PO PRN (17:00)
[2016-09-13 19:22] VITALS: BP 137/77
[2016-09-13] MEDS: OLANZAPINE 2.5 MG TABLET PO SCH (20:04)
[2016-09-13] MEDS: NIACIN ER 500 MG TABLET.ER PO SCH (20:05)
[2016-09-13] MEDS: ENOXAPARIN 40 MG/0.4 ML DISP.SYRIN. SQ SCH (20:05)
[2016-09-13] MEDS: tiZANidine 4 MG TABLET. PO SCH (20:05)
[2016-09-13 23:09] VITALS: BP 93/57
[2016-09-14] VITALS (7 sets, daily range): BP systolic 78–143; BP diastolic 45–81
[2016-09-14] MEDS: FENTANYL PF 100 MCG/2 ML VIAL. IV PRN ×9 (00:57→20:52)
[2016-09-14] MEDS: OXYCODONE IR 5 MG TABLET. PO PRN ×5 (03:45→23:40)
[2016-09-14] MEDS: MESALAMINE 1.2 GM TABLET.DR PO SCH (06:07)
[2016-09-14] MEDS: ALBUTEROL SULFATE 2.5 MG/3 ML NEBU. NEB SCH ×4 (07:13→19:52)
[2016-09-14] MEDS: SUMATRIPTAN SUCCINATE 100 MG TABLET. PO PRN ×2 (08:00→15:22)
[2016-09-14] MEDS: CHOLECALCIFEROL (VITAMIN D3) 1,000 UNIT TABLET PO SCH (08:34)
[2016-09-14] MEDS: PANTOPRAZOLE 40 MG TABLET. PO SCH (08:34)
[2016-09-14] MEDS: CETIRIZINE HCL 10 MG TABLET PO SCH (08:34)
[2016-09-14] MEDS: LIPASE/PROTEAS/AMYLASE 5/17/27 CAPSULE.DR. PO SCH ×3 (08:34→17:58)
[2016-09-14] MEDS: LACTOBACILLUS ACIDOPH & BULGAR 1 TABLET. PO SCH ×3 (08:35→17:58)
[2016-09-14] MEDS: CEFPODOXIME PROXETIL 100 MG TABLET PO SCH ×2 (08:35→20:52)
[2016-09-14] MEDS: ASCORBIC ACID 500 MG TABLET PO SCH (08:35)
--- NOTE | 2016-09-14 09:08 | RAD ---
Portable chest, 09/14/2016: History: Follow-up pneumothorax Comparison is made to yesterday's exam. The right chest tube and the right PICC line are unchanged in positions. There is a small ongoing right pneumothorax, similar to that seen on yesterday's study. Moderate diffuse right pleural thickening is again noted. There are moderate persistent infiltrates in the right lung, most prominent laterally. The left chest remains clear. The heart size is normal. No new abnormality is detected. IMPRESSION: 1. Persistent small right pneumothorax. 2. No significant change since yesterday's study.
--- NOTE | 2016-09-14 11:01 | PDOC ---
PULMONARY PROGRESS NOTES Subjective no increase soa Vitals Vital Signs Date Time Temp Pulse Resp B/P Pulse Ox O2 Delivery O2 Flow Rate FiO2 09/14/16 09:07 18 Room Air 09/14/16 08:44 2.0 09/14/16 08:04 97.9 114 131/73 97 97.9 ROS: No Nausea, No Chest Pain, No Abdominal Pain, No Increase Cough General: Alert, No acute distress HEENT: Other (nc at perrl, throat nose clear) Lungs: Other (decrease bs) Cardiovascular: S1, S2 Abdomen: Soft, Non-tender, Other (no mass) Neuro Exam: Alert, Oriented, No Focal Findings Extremities: No Edema Skin: Warm Labs Laboratory Tests Test 09/13/16 04:00 Magnesium Level 2.2mg/dL (1.8-2.4) Medications Active Scripts Medications Dose Route/Sig Days Date Category Zyprexa (Olanzapine) 2.5 Mg Tablet 1 Tab PO QHS 01/15/16 Reported Tizanidine Hcl 4 Mg Tablet 4 Mg PO TID PRN 01/14/16 Reported Tramadol Hcl 50 Mg Tablet 50 Mg PO BID PRN 01/14/16 Reported Lialda (Mesalamine) 1.2 Gm Tablet.dr 4 Tab PO DAILY 01/14/16 Reported Comments cxr reviewed, 09/11 tiny right PTX/ volume loss RLL Impression . 1. Acute hypoxic respiratory failure POA,, secondary to extensive multilobar community-acquired pneumonia/ multiloculated effusion, empyema. 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 2. chronic obstructive pulmonary disease 3. severe leukocytosis POA. This is probably related to underlying extensive pneumonia and sepsis./ BM aspiration 08/29 , No leukemia 4. Severe protein-calorie malnutrition with an albumin level of 1.4. 5. Normal ejection fraction by echo with a pulmonary artery systolic pressure of 49. Suspect this is secondary to underlying chronic obstructive pulmonary disease. 7. smoker 8. Anemia Path Segments of inflammatory exudate and fibromembranous tissue, right pleural drainage empyema and pulmonary decortication: - Acute inflammatory exudate consistent with empyema. - Segments of pleura showing acute and chronic inflammation and reactive fibrosis. Plan . cxr about same air leak persist continue the same ALLAN OWENS MD Sep 14, 2016 11:01
--- NOTE | 2016-09-14 11:05 | PDOC ---
PROGRESS NOTES Chief Complaint Chief Complaint 1. PNA: multilobar. w/ empyema 2. Empyema: s/p VATS, w/ chest tubes draining 3. COPD exacerbation: improving 4. Sepsis: resolved 5. HTN, tachycardia: vitals improved 6. BP at low normal, prob influenced by IV narcotics. IVF boluses PRN 7. Ulcerative Colitis: on mesalamine, pancreatic enzymes, macrobiotics 8. Depression: on zyprexa 9. Smoker: nicotine patch 10. Migraine: imitrex PRN 11. chest pain: musculoskeletal from chest tubes fentanyl, Oxy PO PRN History of Present Illness History of Present Illness Chest tube remains as still persistent air leak Fentanyl patch applied 2:30 PM yesterday - pt ahs been requesting IV fentanyl q2 RTC STILL - should have reached its peak effect by now Discussed long acting ms contin or oxycontin, claims eh tried that in past and had untoward side effects She mostly hurts on the chest tube site PLAN: Cont present pain regimen for now NO bowel regimen needed (soft stools) Chest tube per [facility] Dw RN Vitals Vitals Vital Signs Date Time Temp Pulse Resp B/P Pulse Ox O2 Delivery O2 Flow Rate FiO2 09/14/16 09:07 18 Room Air 09/14/16 08:44 2.0 09/14/16 08:04 97.9 114 131/73 97 97.9 Physical Exam Physical Exam GENERAL: NAD, Alert HEENT: PERRL, OC/OP NECK: Supple, no JVD, no LN LUNGS: Clear HEART: S1S2, no gallop, no murmur ABD: Soft, NT, no organomegaly, no rebound EXT: No edema, no cyanosis [employer]: Alert, oriented x 3, no focal neurologic deficit SKIN: No rash IV: ok General: Alert, Oriented X3, Cooperative, No acute distress Heart: Regular rate (tachycardic), Normal S1, Normal S2, No murmurs, Other ( tele: SR/ST) Lungs: Other (decrease bs) Abdomen: Normal bowel sounds, Soft, No tenderness Extremities: No edema, Normal pulses Skin: No rashes Review of Systems Review of Systems chest tube site pain No inc SOA, no CP, no abd pain Assessment and Plan Assessmemt and Plan Problems Medical Problems: (1) CAP (community acquired pneumonia) Status: Acute (2) Empyema of lung Status: Acute Problems: Comment Review of Relevant I have reviewed the following items randi (where applicable) has been applied. Labs Laboratory Tests Test 09/13/16 04:00 Magnesium Level 2.2mg/dL (1.8-2.4) Microbiology 09/05/16 Anaerobic/Aerobic Culture - Final, Complete 09/05/16 Anaerobic Culture Result 1 (BRUCE) - Final, Complete 09/05/16 Aerobic Culture - Final, Complete 09/05/16 Aerobic Culture Result 1 (BRUCE) - Final, Complete 09/05/16 Anaerobic/Aerobic Culture - Final, Complete 09/05/16 Anaerobic Culture Result 1 (BRUCE) - Final, Complete 09/05/16 Aerobic Culture - Final, Complete 09/05/16 Aerobic Culture Result 1 (BRUCE) - Final, Complete Medications Current Medications Acetaminophen (Tylenol) 325 mg PRN Q6HRS PRN PO MILD PAIN / TEMP Last administered on 08/26/16 08:29; Start 08/25/16 at 12:45 Acetaminophen/ Hydrocodone Bitart (Lortab 5/325) 1 tab PRN Q6HRS PRN PO MODERATE PAIN Last administered on 08/27/16 02:06; Start 08/25/16 at 12:45; Stop 08/29/16 at 16:41; Status DC Hydralazine HCl (Apresoline) 10 mg PRN Q4HRS PRN IVP ELEVATED BP, SEE COMMENTS Last administered on 08/26/16 05:07; Start 08/25/16 at 12:45 Ondansetron HCl (Zofran) 4 mg PRN Q8HRS PRN IV NAUSEA/VOMITING Last administered on 08/25/16 15:42; Start 08/25/16 at 12:45; Stop 08/27/16 at 08:44 ; Status DC Albuterol Sulfate 2.5 mg 2.5 mg PRN Q4HRS PRN NEB SHORTNESS OF BREATH; Start at 12:45 Piperacillin Sod/ Tazobactam Sod 3.375 gm/Sodium Chloride 50 ml @ 100 mls/hr Q6HRS IV Last administered on 09/08/16 06:00; Start 08/25/16 at 13:00; Stop at 07:53; Status DC Linezolid (Zyvox Premix) 300 ml @ 300 mls/hr Q12HR IV Last administered on 21:39; Start 08/25/16 at 14:00; Stop 09/08/16 at 07:52; Status DC Piperacillin Sod/ Tazobactam Sod 1 each 1 each PRN DAILY PRN MC SEE COMMENTS; Start 08/25/16 at 13:45; Stop 08/27/16 at 12:41; Status DC Levofloxacin/ Dextrose (LEVAQUIN 750mg PREMIX) 150 ml @ 100 mls/hr Q24H IV Last administered on 08/28/16 13:51; Start 08/25/16 at 14:00; Stop 08/28/16 at 14:37; Status DC Lidocaine/Sodium Bicarbonate (Buffered Lidocaine 1%) 20 ml STK-MED ONCE IJ ; Start 08/25/16 at 14:00; Stop 08/25/16 at 14:01; Status DC Lidocaine/Sodium Bicarbonate (Buffered Lidocaine 1%) 5 ml 1X ONCE IJ Last administered on 08/25/16 14:59; Start 08/25/16 at 15:00; Stop 08/25/16 at 15:01 ; Status DC Info (Do NOT chart on this placeholder) 1 each 1X ONCE MC ; Start 08/25/16 at 17:00; Stop 08/25/16 at 17:01; Status UNV Pneumococcal Polyvalent Vaccine (Do NOT chart on this placeholder) 1 each 1X ONCE MC ; Start 08/25/16 at 17:00; Stop 08/25/16 at 17:01; Status UNV Influenza Virus Vaccine Quadrival (Fluarix Quad [id number] Syringe) 0.5 ml ONCE ONCE VAX IM ; Start 08/26/16 at 09:00; Stop 08/26/16 at 09:01; Status DC Pneumococcal Polyvalent Vaccine (Pneumovax 23) 0.5 ml ONCE ONCE VAX IM ; Start 08/26/16 at 09:00; Stop 08/26/16 at 09:01; Status DC Enoxaparin Sodium (Lovenox 40mg Syringe) 40 mg Q24H SQ Last administered on 08:19; Start 08/26/16 at 09:00; Stop 08/29/16 at 11:45; Status DC Fentanyl Citrate (Fentanyl 2ml Vial) 25 mcg PRN Q4HRS PRN IV PAIN Last administered on 08/27/16 06:13; Start 08/26/16 at 08:30; Stop 08/29/16 at 15:07 ; Status DC Potassium Chloride (Klor-Con) 40 meq 1X ONCE PO Last administered on 11:24; Start 08/26/16 at 10:45; Stop 08/26/16 at 10:49; Status DC Mesalamine (Lialda) 4.8 gm DAILY06 PO Last administered on 09/14/16 06:07; Start 08/26/16 at 13:30 Olanzapine (Zyprexa) 2.5 mg HS PO Last administered on 09/13/16 20:04; Start 08/26/16 at 21:00 Sumatriptan Succinate (Imitrex) 100 mg PRN Q2HR PRN PO MIGRAINE HEADACHE Last administered on 09/14/16 08:00; Start 08/26/16 at 13:30 Tizanidine HCl (Zanaflex) 4 mg QHS PO Last administered on 08/26/16 19:57; Start 08/26/16 at 21:00; Stop 08/26/16 at 21:00; Status DC Tramadol HCl (Ultram) 50 mg BID PO Last administered on 08/31/16 07:48; Start 08/26/16 at 14:00; Stop 08/31/16 at 15:54; Status DC Ascorbic Acid (Vitamin C) 1,000 mg DAILY PO Last administered on 09/14/16 08:35 ; Start 08/27/16 at 09:00 Amylase/Lipase/ Protease (Zenpep 5,000) 5 cap TIDWMEALS PO Last administered on 09/14/16 08:34; Start 08/26/16 at 17:00 Niacin (Slo-Niacin) 500 mg QHS PO Last administered on 09/13/16 20:05; Start 08/26/16 at 21:00 Pantoprazole Sodium (Protonix) 40 mg DAILYAC PO Last administered on 09/14/16 08:34; Start 08/26/16 at 14:00 Non-Formulary Medication 1 tab DAILY PO ; Start 08/27/16 at 09:00; Status UNV Diphenoxylate HCl/ Atropine (Lomotil) 1 tab PRN QID PRN PO DIARRHEA Last administered on 09/03/16 17:27; Start 08/26/16 at 13:45 Tizanidine HCl (Zanaflex) 20 mg QHS PO Last administered on 09/13/16 20:05; Start 08/26/16 at 21:00 Acetaminophen/ Hydrocodone Bitart (Lortab 5/325) 2 tab PRN Q6HRS PRN PO SEVERE PAIN Last administered on 08/29/16 10:47; Start 08/27/16 at 04:45; Stop at 16:41; Status DC Ondansetron HCl (Zofran) 4 mg PRN Q6HRS PRN IV NAUSEA/VOMITING Last administered on 09/05/16 23:16; Start 08/27/16 at 08:42 Vancomycin HCl 125 mg [id number] PO Last administered on 08/28/16 20:54; Start at 16:00; Stop 08/29/16 at 10:24; Status DC Lactobacillus Acidophilus 1 tab 1 tab TIDWMEALS PO Last administered on 08:35; Start 08/27/16 at 17:00 Sodium Chloride (Iv Sodium Chloride 0.9% 500ml Bag) 500 ml @ 500 mls/hr 1X ONCE IV Last administered on 08/28/16 00:52; Start 08/28/16 at 01:00; Stop at 01:59; Status DC Nicotine (Nicoderm Cq 21mg) 1 patch PRN DAILY PRN TD SMOKING CESSATION; Start 08/28/16 at 09:30 Cetirizine HCl (Zyrtec) 10 mg DAILY PO Last administered on 09/14/16 08:34; Start 08/28/16 at 10:00 Vitamin D (Vitamin D3) 1,000 unit DAILY PO Last administered on 09/14/16 08:34 ; Start 08/28/16 at 10:00 Iohexol (Omnipaque 300 Mg/ml) 75 ml 1X ONCE IV Last administered on 08/28/16 10:53; Start 08/28/16 at 10:15; Stop 08/28/16 at 10:16; Status DC Info (Do NOT chart on this entry -- for MONITORING) 1 each PRN DAILY PRN MC SEE COMMENTS; Start 08/28/16 at 10:00; Stop 08/30/16 at 09:59; Status DC Potassium Chloride (Klor-Con) 40 meq 1X ONCE PO Last administered on 13:52; Start 08/28/16 at 13:00; Stop 08/28/16 at 13:01; Status DC Lidocaine/Sodium Bicarbonate (Buffered Lidocaine 1%) 20 ml STK-MED ONCE IJ ; Start 08/29/16 at 08:36; Stop 08/29/16 at 08:37; Status DC Naloxone HCl (Narcan) 0.4 mg STK-MED ONCE .ROUTE ; Start 08/29/16 at 08:37; Stop 08/29/16 at 08:38; Status DC Flumazenil (Romazicon) 0.5 mg STK-MED ONCE IV ; Start 08/29/16 at 08:37; Stop at 08:38; Status DC Midazolam HCl (Versed) 5 mg STK-MED ONCE .ROUTE ; Start 08/29/16 at 08:37; Stop 08/29/16 at 08:38; Status DC Fentanyl Citrate (Fentanyl 5ml Vial) 250 mcg STK-MED ONCE .ROUTE ; Start at 08:37; Stop 08/29/16 at 08:38; Status DC Lidocaine/Sodium Bicarbonate (Buffered Lidocaine 1%) 6 ml 1X ONCE IJ Last administered on 08/29/16 09:09; Start 08/29/16 at 09:15; Stop 08/29/16 at 09:16 ; Status DC Midazolam HCl (Versed) 2 mg 1X ONCE IV Last administered on 08/29/16 09:08; Start 08/29/16 at 09:15; Stop 08/29/16 at 09:16; Status DC Fentanyl Citrate (Fentanyl 5ml Vial) 100 mcg 1X ONCE IV Last administered on 09:08; Start 08/29/16 at 09:15; Stop 08/29/16 at 09:16; Status DC Enoxaparin Sodium (Lovenox 40mg Syringe) 40 mg Q24H SQ Last administered on 16:01; Start 08/29/16 at 16:00; Stop 08/31/16 at 10:23; Status DC Acetaminophen/ Hydrocodone Bitart (Lortab 5/325) 1 tab PRN Q4HRS PRN PO MODERATE PAIN; Start 08/29/16 at 16:45; Stop 08/31/16 at 15:54; Status DC Acetaminophen/ Hydrocodone Bitart (Lortab 5/325) 2 tab PRN Q4HRS PRN PO SEVERE PAIN Last administered on 08/31/16 15:14; Start 08/29/16 at 16:45; Stop at 15:54; Status DC Lidocaine/Sodium Bicarbonate (Buffered Lidocaine 1%) 20 ml STK-MED ONCE IJ ; Start 08/30/16 at 13:57; Stop 08/30/16 at 13:58; Status DC Midazolam HCl (Versed) 2 mg STK-MED ONCE .ROUTE ; Start 08/30/16 at 14:22; Stop 08/30/16 at 14:23; Status DC Fentanyl Citrate (Fentanyl 2ml Vial) 100 mcg STK-MED ONCE .ROUTE ; Start at 14:22; Stop 08/30/16 at 14:23; Status DC Lidocaine/Sodium Bicarbonate (Buffered Lidocaine 1%) 4 ml 1X ONCE IJ Last administered on 08/30/16 15:08; Start 08/30/16 at 14:50; Stop 08/30/16 at 15:04 ; Status DC Midazolam HCl (Versed) 1 mg 1X ONCE IV Last administered on 08/30/16 15:09; Start 08/30/16 at 14:45; Stop 08/30/16 at 15:04; Status DC Fentanyl Citrate (Fentanyl 2ml Vial) 50 mcg 1X ONCE IV Last administered on 15:09; Start 08/30/16 at 14:45; Stop 08/30/16 at 15:05; Status DC Metoprolol Tartrate 25 mg 25 mg BID PO Last administered on 08/30/16 21:44; Start 08/30/16 at 21:00; Stop 08/31/16 at 17:09; Status DC Alteplase, Recombinant 5 mg/ Sterile Water 50 ml @ 5 mls/hr 1X ONCE IV ; Start 08/31/16 at 10:30; Stop 08/31/16 at 15:27; Status DC Alteplase, Recombinant 5 mg/ Sterile Water 50 ml @ 5 mls/hr 1X ONCE IV ; Start 08/31/16 at 10:45; Stop 08/31/16 at 15:27; Status DC Alteplase, Recombinant 5 mg/ Sterile Water 50 ml @ 5 mls/hr 1X ONCE INT CAT Last administered on 08/31/16 12:40; Start 08/31/16 at 15:27; Stop 08/31/16 at 20:29; Status DC Alteplase, Recombinant/ Sterile Water (Cathflo) 50 ml @ 5 mls/hr 1X ONCE INT CAT Last administered on 08/31/16 12:40; Start 08/31/16 at 15:27; Stop at 20:44; Status DC Oxycodone HCl (Roxicodone) 5 mg PRN Q3HRS PRN PO MODERATE - SEVERE PAIN Last administered on 09/13/16 22:22; Start 08/31/16 at 16:00 Morphine Sulfate 2 mg PRN Q6HRS PRN IV PAIN; Start 08/31/16 at 16:00; Stop at 18:07; Status DC Oxycodone HCl (Roxicodone) 10 mg PRN Q3HRS PRN PO MODERATE - SEVERE PAIN Last administered on 09/14/16 07:41; Start 08/31/16 at 16:00 Fentanyl Citrate (Fentanyl 2ml Vial) 50 mcg PRN Q2HR PRN IV PAIN SEV Last administered on 09/08/16 09:08; Start 08/31/16 at 18:15; Stop 09/08/16 at 10:32 ; Status DC Morphine Sulfate 2 mg 2 mg ONCE ONCE IV Last administered on 08/31/16 18:05; Start 08/31/16 at 20:45; Stop 08/31/16 at 20:46; Status DC Sodium Chloride (Iv Sodium Chloride 0.9% 500ml Bag) 500 ml @ 500 mls/hr 1X ONCE IV Last administered on 09/01/16 06:30; Start 09/01/16 at 06:30; Stop at 07:29; Status DC Alteplase, Recombinant (Cathflo) 2 mg 1X ONCE INT CAT Last administered on 06:35; Start 09/01/16 at 07:00; Stop 09/01/16 at 07:01; Status DC Albuterol Sulfate 2.5 mg 2.5 mg RTQID NEB Last administered on 09/14/16 07:13; Start 09/01/16 at 12:00 Sodium Chloride 1,000 ml @ 1,000 mls/hr 1X ONCE IV Last administered on 12:09; Start 09/01/16 at 11:45; Stop 09/01/16 at 12:44; Status DC Alteplase, Recombinant 5 mg/ Sterile Water 50 ml @ 5 mls/hr 1X ONCE INT CAT Last administered on 09/01/16 12:30; Start 09/01/16 at 12:30; Stop 09/01/16 at 22:29; Status DC Alteplase, Recombinant/ Sterile Water (Cathflo) 50 ml @ 5 mls/hr 1X ONCE INT CAT Last administered on 09/01/16 12:30; Start 09/01/16 at 12:30; Stop at 22:29; Status DC Alteplase, Recombinant 2 mg 2 mg 1X ONCE INT CAT Last administered on 15:18; Start 09/01/16 at 13:00; Stop 09/01/16 at 13:01; Status DC Sodium Chloride (Iv Sodium Chloride 0.9% 1000ml Bag) 1,000 ml @ 1,000 mls/hr 1X ONCE IV Last administered on 09/01/16 23:45; Start 09/01/16 at 23:45; Stop 09/02/16 at 00:44; Status DC Fentanyl Citrate (Fentanyl 2ml Vial) 50 mcg 1X ONCE IV Last administered on 15:30; Start 09/03/16 at 15:30; Stop 09/03/16 at 15:35; Status DC Bupivacaine HCl (Sensorcaine Mpf 0.5%) 30 ml STK-MED ONCE .ROUTE ; Start at 12:12; Stop 09/05/16 at 12:13; Status DC Lidocaine HCl 20 ml STK-MED ONCE .ROUTE ; Start 09/05/16 at 12:13; Stop at 12:14; Status DC Cellulose 1 each STK-MED ONCE .ROUTE ; Start 09/05/16 at 12:13; Stop 09/05/16 at 12:14; Status DC Lidocaine HCl 100 mg 100 mg STK-MED ONCE .ROUTE ; Start 09/05/16 at 13:16; Stop 09/05/16 at 13:17; Status DC Propofol (Diprivan) 100 ml @ As Directed STK-MED ONCE IV ; Start 09/05/16 at 13 :16; Stop 09/05/16 at 13:17; Status DC Fentanyl Citrate (Fentanyl 2ml Vial) 100 mcg STK-MED ONCE .ROUTE ; Start at 13:16; Stop 09/05/16 at 13:17; Status DC Rocuronium Umpire (Zemuron) 50 mg STK-MED ONCE .ROUTE ; Start 09/05/16 at 13:16 ; Stop 09/05/16 at 13:17; Status DC Lidocaine HCl 1 ml 1 ml STK-MED ONCE .ROUTE ; Start 09/05/16 at 13:20; Stop at 13:21; Status DC Lactated Ringer's (Iv Lactated Ringers) 1,000 ml @ 100 mls/hr Q10H IV Last administered on 09/06/16t 06:22; Start 09/05/16 at 14:15; Stop 09/06/16 at 18:30 ; Status DC Lidocaine HCl (Xylocaine-Mpf 1% Vial) 2 ml 1X ONCE INJ Last administered on t 13:35; Start 09/05/16 at 14:30; Stop 09/05/16 at 14:31; Status DC Dexamethasone Sodium Phosphate (Decadron) 20 mg STK-MED ONCE .ROUTE ; Start at 14:49; Stop 09/05/16 at 14:50; Status DC Sevoflurane (Ultane) 90 ml STK-MED ONCE IH ; Start 09/05/16 at 14:49; Stop 09/05 at 14:50; Status DC Fentanyl Citrate (Fentanyl 2ml Vial) 100 mcg STK-MED ONCE .ROUTE ; Start at 15:07; Stop 09/05/16 at 15:08; Status DC Metoprolol Tartrate (Lopressor) 5 mg STK-MED ONCE .ROUTE ; Start 09/05/16 at 15: 09; Stop 09/05/16 at 15:10; Status DC Ondansetron HCl (Zofran) 4 mg STK-MED ONCE .ROUTE ; Start 09/05/16 at 15:23; Stop 09/05/16 at 15:24; Status DC Glycopyrrolate (Robinul) 1 mg STK-MED ONCE .ROUTE ; Start 09/05/16 at 15:23; Stop 09/05/16 at 15:24; Status DC Neostigmine Methylsulfate 5 mg STK-MED ONCE .ROUTE ; Start 09/05/16 at 15:23; Stop 09/05/16 at 15:24; Status DC Rocuronium Umpire (Zemuron) 50 mg STK-MED ONCE .ROUTE ; Start 09/05/16 at 15:24 ; Stop 09/05/16 at 15:25; Status DC Ondansetron HCl (Zofran) 4 mg PRN Q6HRS PRN IV Nausea; Start 09/05/16 at 17:15 ; Stop 09/05/16 at 19:00; Status DC Fentanyl Citrate (Fentanyl 2ml Vial) 25 mcg PRN Q5MIN PRN IV MILD PAIN; Start 09/05/16 at 17:15; Stop 09/05/16 at 19:00; Status DC Fentanyl Citrate (Fentanyl 2ml Vial) 50 mcg PRN Q5MIN PRN IV MODERATE PAIN; Start 09/05/16 at 17:15; Stop 09/05/16 at 19:00; Status DC Morphine Sulfate 1 mg 1 mg PRN Q10MIN PRN IV SEVERE PAIN; Start 09/05/16 at 17: 15; Stop 09/05/16 at 19:00; Status DC Lactated Ringer's (Iv Lactated Ringers) 1,000 ml @ 0 mls/hr Q0M IV ; Start at 17:06; Stop 09/05/16 at 19:00; Status DC Lidocaine HCl 2 ml 1X PRN PRN ID IV START; Start 09/05/16 at 17:15; Stop at 19:00; Status DC Hydromorphone HCl (Dilaudid) 0.5 mg PRN Q10MIN PRN IV SEV PAIN,Second choice; Start 09/05/16 at 17:15; Stop 09/05/16 at 19:00; Status DC Prochlorperazine Edisylate (Compazine) 5 mg PACU PRN PRN IV NAUSEA; Start 09/05 at 17:15; Stop 09/05/16 at 19:00; Status DC Phenylephrine HCl (Fortino-Synephrine Inj) 10 mg STK-MED ONCE .ROUTE ; Start at 17:37; Stop 09/05/16 at 17:38; Status DC Sodium Bicarbonate 50 meq 50 meq STK-MED ONCE .ROUTE ; Start 09/05/16 at 17:58; Stop 09/05/16 at 17:59; Status DC Lactated Ringer's 500 ml @ 75 mls/hr 1X ONCE IV Last administered on 22:02; Start 09/05/16 at 21:30; Stop 09/06/16 at 04:09; Status DC Sodium Chloride (Iv Sodium Chloride 0.9% 500ml Bag) 500 ml @ 500 mls/hr 1X ONCE IV Last administered on 09/07/16 00:17; Start 09/07/16 at 00:00; Stop at 00:59; Status DC Fentanyl Citrate (Fentanyl 2ml Vial) 75 mcg PRN Q2HR PRN IV PAIN SEV Last administered on 09/14/16 08:37; Start 09/08/16 at 11:00 Morphine Sulfate (Ms Contin) 15 mg BID PO Last administered on 09/09/16 08:46 ; Start 09/08/16 at 11:00; Stop 09/09/16 at 17:13; Status DC Cefpodoxime Proxetil (Vantin) 100 mg BID PO Last administered on 09/14/16 08:35 ; Start 09/08/16 at 14:00 Enoxaparin Sodium (Lovenox 30mg Syringe) 30 mg Q24H SQ Last administered on 20:53; Start 09/08/16 at 21:00; Stop 09/09/16 at 08:39; Status DC Enoxaparin Sodium (Lovenox 40mg Syringe) 40 mg Q24H SQ Last administered on 20:05; Start 09/09/16 at 21:00 Fentanyl Citrate (Fentanyl 2ml Vial) 100 mcg 1X ONCE IV Last administered on 13:41; Start 09/10/16 at 13:15; Stop 09/10/16 at 13:16; Status DC Potassium Chloride (Klor-Con) 20 meq 1X ONCE PO Last administered on 13:41; Start 09/10/16 at 13:30; Stop 09/10/16 at 13:31; Status DC Fentanyl (Duragesic 75mcg/ Hr Patch) 1 patch Q3DAYS TD Last administered on 12:25; Start 09/12/16 at 11:00 Docusate Sodium (Colace) 100 mg BID PO ; Start 09/12/16 at 12:00; Stop 09/12/16 at 12:00; Status DC Polyethylene Glycol (miraLAX PACKET) 17 gm DAILY PO ; Start 09/12/16 at 12:00; Stop 09/12/16 at 12:00; Status DC Magnesium Hydroxide 2400 mg 2,400 mg PRN DAILY PRN PO CONSTIPATION; Start 09/12 at 11:15; Stop 09/12/16 at 11:30; Status DC Magnesium Sulfate/ Dextrose (Magnesium Sulfate PREMIX 4GM) 100 ml @ 25 mls/hr 1X ONCE IV Last administered on 09/12/16 16:34; Start 09/12/16 at 15:00; Stop 09/12/16 at 18:59; Status DC Alteplase, Recombinant (Cathflo) 2 mg 1X ONCE INT CAT Last administered on 15:22; Start 09/12/16 at 14:30; Stop 09/12/16 at 14:31; Status DC Talc (Sterile Talc) 5 gm 1X ONCE IPL ; Start 09/13/16 at 14:00; Stop 09/13/16 at 14:01; Status UNV Lidocaine HCl 20 ml 20 ml 1X ONCE IJ ; Start 09/13/16 at 14:00; Stop 09/13/16 at 14:01; Status UNV Talc 5 gm/ Lidocaine HCl 5 ml/Miscellaneous 50 ml @ 600 mls/hr 1X ONCE IPL ; Start 09/13/16 at 14:00; Stop 09/13/16 at 14:04; Status Cancel Talc/Miscellaneous (Sterile Talc) 50 ml @ 600 mls/hr 1X ONCE IPL ; Start 09/13 at 14:30; Stop 09/13/16 at 14:34; Status DC Lidocaine HCl 20 ml ONCE ONCE IJ ; Start 09/13/16 at 14:30; Stop 09/13/16 at 14 :30; Status DC Lidocaine HCl (Xylocaine-Mpf 1% Vial) 5 ml ONCE ONCE INJ ; Start 09/13/16 at 14 :30; Stop 09/13/16 at 14:30; Status DC Lidocaine HCl 30 ml ONCE ONCE INJ ; Start 09/13/16 at 14:30; Stop 09/13/16 at 14:31; Status DC Acetaminophen (Tylenol) 650 mg PRN Q6HRS PRN PO MILD PAIN / TEMP; Start at 17:00 Active Scripts Active Reported [diphen/atropine] 2.5 Mg PO PRN QID PRN Prilosec Otc (Omeprazole Magnesium) 20 Mg Tablet.dr 1 Tab PO DAILY Lialda (Mesalamine) 1.2 Gm Tablet.dr 4 Tab PO DAILY06 Tizanidine Hcl 4 Mg Tablet 5 Tab PO QHS Olanzapine 2.5 Mg Tablet 2.5 Mg PO HS Zyrtec (Cetirizine Hcl) 10 Mg Capsule 10 Mg PO DAILY Dhea 50 Mg Tablet (Prasterone (Dhea)/Calcium Carb) 1 Each Tablet 1 Tab PO DAILY Niacin 500 Mg Tablet 500 Mg PO HS Vitamin D3 (Cholecalciferol (Vitamin D3)) 1,000 Unit Capsule 1,000 Unit PO DAILY Vitamin C (Ascorbic Acid) 1,000 Mg Tab.chew 1,000 Mg PO DAILY Imitrex (Sumatriptan Succinate) 100 Mg Tablet 100 Mg PO ONCE PRN Tramadol Hcl 50 Mg Tablet 4 Tab PO BID Zenpep Dr 25,000 Units Capsule (Lipase/Protease/Amylase) 1 Each Capsule.dr 1 Each PO TIDAFTMEAL Vitals/I & O Vital Sign - Last 24 Hours 09/13/16 09/13/16 09/13/16 09/13/16 12:18 12:58 13:05 14:19 Temp 98.2 98.2 Resp 18 18 19 B/P 131/69 Pulse Ox 96 96 96 O2 Delivery Nasal Cannula Nasal Cannula Room Air Nasal Cannula O2 Flow Rate 2.0 2.0 2.0 2.0 09/13/16 09/13/16 09/13/16 09/13/16 14:52 15:57 17:11 17:12 Resp 20 20 18 Pulse Ox 96 96 96 O2 Delivery Nasal Cannula Nasal Cannula Nasal Cannula Nasal Cannula O2 Flow Rate 2.0 2.0 2.0 2.0 09/13/16 09/13/16 09/13/16 09/13/16 19:22 19:30 19:57 20:04 Temp 98.1 98.1 Pulse 112 Resp 18 20 B/P 137/77 Pulse Ox 98 96 O2 Delivery Nasal Cannula Nasal Cannula Nasal Cannula Nasal Cannula O2 Flow Rate 2.0 2.0 2.0 2.0 09/13/16 09/13/16 09/13/16 09/13/16 22:22 22:23 23:09 23:25 Temp 98.0 98.0 Pulse 97 Resp 20 20 18 18 B/P 93/57 Pulse Ox 96 96 99 96 O2 Delivery Nasal Cannula Nasal Cannula Nasal Cannula Nasal Cannula O2 Flow Rate 2.0 2.0 2.0 2.0 09/14/16 09/14/16 09/14/16 09/14/16 00:57 03:31 03:44 03:45 Temp 98.2 98.2 Pulse 124 Resp 20 20 22 22 B/P 143/80 Pulse Ox 96 99 99 99 O2 Delivery Nasal Cannula Nasal Cannula Nasal Cannula Nasal Cannula O2 Flow Rate 2.0 2.0 2.0 2.0 09/14/16 09/14/16 09/14/16 09/14/16 04:45 06:08 06:38 07:00 Temp 97.9 97.9 Pulse 114 Resp 20 18 B/P 131/73 Pulse Ox 99 99 99 97 O2 Delivery Nasal Cannula Nasal Cannula O2 Flow Rate 2.0 2.0 2.0 09/14/16 09/14/16 09/14/16 09/14/16 07:14 07:41 08:00 08:04 Temp 97.9 97.9 Pulse 114 Resp 18 18 B/P 131/73 Pulse Ox 97 97 O2 Delivery Nasal Cannula Nasal Cannula Nasal Cannula Nasal Cannula O2 Flow Rate 2.0 2.0 2.0 2.0 09/14/16 09/14/16 09/14/16 08:37 08:44 09:07 Resp 18 18 18 O2 Delivery Nasal Cannula Nasal Cannula Room Air O2 Flow Rate 2.0 2.0 Intake and Output 09/13/16 09/13/16 09/14/16 15:00 23:00 07:00 Intake Total 180 ml 1370 ml 950 ml Output Total 790 ml 1300 ml Balance 180 ml 580 ml -350 ml ABDELRAHMAN KOENIG MD Sep 14, 2016 11:04
--- NOTE | 2016-09-14 13:55 | PDOC ---
Progress Note Subjective Subjective Air leak persists. ROS ROS No nausea No vomiting No pain No rash Vital Sign Vital Signs Vital Signs Date Time Temp Pulse Resp B/P Pulse Ox O2 Delivery O2 Flow Rate FiO2 09/14/16 12:16 18 Nasal Cannula 2.0 09/14/16 11:40 98 09/14/16 11:00 98.1 131 127/81 98.1 Physical Exam PHYSICAL EXAM GENERAL: NAD, Alert HEENT: PERRL, OC/OP NECK: Supple, no JVD, no LN LUNGS: Clear HEART: S1S2, no gallop, no murmur ABD: Soft, NT, no organomegaly, no rebound EXT: No edema, no cyanosis [employer]: Alert, oriented x 3, no focal neurologic deficit SKIN: No rash IV: ok Objective Assessment POD#9 s/p R VATS, drainage of empyema and pulmonary decortication. Prolonged air leak. Plan Plan of Care Will keep chest tube to water seal today. It is possible that continuous suction is delaying lung healing Possible DC home tomorrow with Heimlich valve. Will start her on a beta kacey for her hypertension and tachycardia YOVANI WHALEY MD Sep 14, 2016 13:55
[2016-09-14] MEDS: METOPROLOL SUCC 24HR ER 25 MG TAB.ER.24H. PO SCH (15:22)
[2016-09-14] MEDS: NIACIN ER 500 MG TABLET.ER PO SCH (20:52)
[2016-09-14] MEDS: tiZANidine 4 MG TABLET. PO SCH (20:52)
[2016-09-14] MEDS: OLANZAPINE 2.5 MG TABLET PO SCH (20:52)
[2016-09-14] MEDS: ENOXAPARIN 40 MG/0.4 ML DISP.SYRIN. SQ SCH (20:55)
[2016-09-15 00:15] VITALS: BP 85/54
[2016-09-15] MEDS: FENTANYL PF 100 MCG/2 ML VIAL. IV PRN ×5 (01:38→15:01)
[2016-09-15 03:26] VITALS: BP 128/75
[2016-09-15] MEDS: SUMATRIPTAN SUCCINATE 100 MG TABLET. PO PRN ×2 (03:53→15:06)
[2016-09-15] MEDS: OXYCODONE IR 5 MG TABLET. PO PRN ×2 (03:54→09:10)
[2016-09-15] MEDS: MESALAMINE 1.2 GM TABLET.DR PO SCH (05:22)
[2016-09-15 07:00] VITALS: BP 131/80
[2016-09-15] MEDS: ALBUTEROL SULFATE 2.5 MG/3 ML NEBU. NEB SCH ×3 (07:19→14:49)
[2016-09-15] MEDS: PANTOPRAZOLE 40 MG TABLET. PO SCH (08:04)
--- NOTE | 2016-09-15 08:08 | RAD ---
Portable chest, 09/15/2016: History: Follow-up pneumothorax Comparison is made to yesterday's study. A right chest tube and right PICC are unchanged in positions. The small right pneumothorax has increased slightly in size. Irregular right pleural thickening and patchy pulmonary infiltrates appear to be unchanged. The left chest remains clear. The heart size and pulmonary vascularity are normal. IMPRESSION: 1. Slight increase in size of the small right pneumothorax. 2. No other significant interval change.
[2016-09-15] MEDS: LACTOBACILLUS ACIDOPH & BULGAR 1 TABLET. PO SCH ×2 (09:09→12:25)
[2016-09-15] MEDS: LIPASE/PROTEAS/AMYLASE 5/17/27 CAPSULE.DR. PO SCH ×2 (09:10→12:26)
[2016-09-15] MEDS: CEFPODOXIME PROXETIL 100 MG TABLET PO SCH (09:10)
[2016-09-15] MEDS: ASCORBIC ACID 500 MG TABLET PO SCH (09:11)
[2016-09-15] MEDS: METOPROLOL SUCC 24HR ER 25 MG TAB.ER.24H. PO SCH (09:11)
[2016-09-15] MEDS: CHOLECALCIFEROL (VITAMIN D3) 1,000 UNIT TABLET PO SCH (09:11)
[2016-09-15] MEDS: CETIRIZINE HCL 10 MG TABLET PO SCH (09:12)
[2016-09-15] MEDS: FENTANYL 75MCG/HR PATCH. TD SCH (10:25)
[2016-09-15] MEDS ORDERED: OXYC10TA PO (10:47)
[2016-09-15] MEDS ORDERED: METO25TA9 PO (10:47)
[2016-09-15] MEDS ORDERED: FENT1PAT92 TD (10:47)
[2016-09-15] MEDS ORDERED: MORP30TA83 PO (10:48)
--- NOTE | 2016-09-15 10:52 | PDOC3 ---
Discharge Summary Visit Information Date of Admission: Aug 25, 2016 Date of Discharge: Sep 15, 2016 Admitting Diagnosis Comment: 1. PNA: multilobar. w/ empyema 2. Empyema: s/p VATS, w/ chest tubes draining 3. COPD exacerbation: improving 4. Sepsis: resolved 5. HTN, tachycardia: vitals improved 6. BP at low normal, prob influenced by IV narcotics. IVF boluses PRN 7. Ulcerative Colitis: on mesalamine, pancreatic enzymes, macrobiotics 8. Depression: on zyprexa 9. Smoker: nicotine patch 10. Migraine: imitrex PRN 11. chest pain: musculoskeletal from chest tubes fentanyl, Oxy PO PRN Final Diagnosis Problems Medical Problems: (1) CAP (community acquired pneumonia) Status: Acute (2) Empyema of lung Status: Acute Brief Hospital Course Allergies Allergies Coded Allergies Type Severity Reaction Last Updated Verified morphine Adverse Reaction Intermediate TRIGGERS MIGRAINES 09/09/16 Yes Vital Signs Vital Signs Date Time Temp Pulse Resp B/P Pulse Ox O2 Delivery O2 Flow Rate FiO2 09/15/16 10:36 94 Room Air 2.0 09/15/16 10:25 18 09/15/16 09:11 117 131/80 09/15/16 07:00 97.9 97.9 Brief Hospital Course Ms. Gómez is a 55 old female, smoker, used to narcs, admitted for empyema, Needed thoracentesis and indwelling pleurovac, co managed with pulmo and TCVS, I think she needed talc too? (See above assessment). Air leak persists , pT will be going home with on heimlich vac, Course remarkable for needing IV fentanyl q2 on top of pO pain meds and duragesic patch, Claims intolerance to oxycotnin, Finally agreed to MS radha (hesitant bec of headaches as "side effect). Counselled, orlando RN at bedside COnsults: pulmo, TCVS Proc: pleurovac, thoracentesis, heimlich valve, ICU stay Pt stayed around 3 weeks in house Pt seen and examined Started on BB long acting for BP Scripts provided dc 40 mins Discharge Information Condition at Discharge: Improved, Stable Follow Up: Weeks (TCVS) Disposition/Orders: D/C to Home Scheduled Ascorbic Acid (Vitamin C) 1,000 MG PO DAILY (Reported) Cetirizine Hcl (Zyrtec) 10 MG PO DAILY (Reported) Cholecalciferol (Vitamin D3) (Vitamin D3) 1,000 UNIT PO DAILY (Reported) Lipase/Protease/Amylase (Zenpep Dr 25,000 Units Capsule) 1 EACH PO TIDAFTMEAL ( Reported) Mesalamine (Lialda) 4 TAB PO DAILY06 (Reported) Niacin (Niacin) 500 MG PO HS (Reported) Olanzapine (Olanzapine) 2.5 MG PO HS (Reported) Omeprazole Magnesium (Prilosec Otc) 1 TAB PO DAILY (Reported) Prasterone (Dhea)/Calcium Carb (Dhea 50 Mg Tablet) 1 TAB PO DAILY (Reported) Tizanidine Hcl (Tizanidine Hcl) 5 TAB PO QHS (Reported) Tramadol Hcl (Tramadol Hcl) 4 TAB PO BID (Reported) Scheduled PRN ([diphen/atropine]) 2.5 MG PO PRN QID PRN PRN DIARRHEA (Reported) Sumatriptan Succinate (Imitrex) 100 MG PO ONCE PRN PRN MIGRAINE HEADACHE ( Reported) ABDELRAHMAN KOENIG MD Sep 15, 2016 10:52
[2016-09-15 11:00] VITALS: BP 121/81
--- NOTE | 2016-09-15 11:45 | PDOC ---
PULMONARY PROGRESS NOTES Subjective no increase soa Vitals Vital Signs Date Time Temp Pulse Resp B/P Pulse Ox O2 Delivery O2 Flow Rate FiO2 09/15/16 11:16 18 94 Room Air 09/15/16 11:00 97.6 119 121/81 97.6 09/15/16 10:36 2.0 ROS: No Nausea, No Chest Pain, No Abdominal Pain, No Increase Cough General: Alert, No acute distress HEENT: Other (nc at perrl, throat nose clear) Lungs: Other (decrease bs) Cardiovascular: S1, S2 Abdomen: Soft, Non-tender, Other (no mass) Neuro Exam: Alert, Oriented, No Focal Findings Extremities: No Edema Skin: Warm Medications Active Scripts Medications Dose Route/Sig Days Date Category Zyprexa (Olanzapine) 2.5 Mg Tablet 1 Tab PO QHS 01/15/16 Reported Tizanidine Hcl 4 Mg Tablet 4 Mg PO TID PRN 01/14/16 Reported Tramadol Hcl 50 Mg Tablet 50 Mg PO BID PRN 01/14/16 Reported Lialda (Mesalamine) 1.2 Gm Tablet.dr 4 Tab PO DAILY 01/14/16 Reported Comments cxr reviewed, 09/11 tiny right PTX/ volume loss RLL Impression . 1. Acute hypoxic respiratory failure POA,, secondary to extensive multilobar community-acquired pneumonia/ multiloculated effusion, empyema. 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 2. chronic obstructive pulmonary disease 3. severe leukocytosis POA. This is probably related to underlying extensive pneumonia and sepsis./ BM aspiration 08/29 , No leukemia 4. Severe protein-calorie malnutrition with an albumin level of 1.4. 5. Normal ejection fraction by echo with a pulmonary artery systolic pressure of 49. Suspect this is secondary to underlying chronic obstructive pulmonary disease. 7. smoker 8. Anemia Path Segments of inflammatory exudate and fibromembranous tissue, right pleural drainage empyema and pulmonary decortication: - Acute inflammatory exudate consistent with empyema. - Segments of pleura showing acute and chronic inflammation and reactive fibrosis. Plan . Possible d/c today with valve follow up in office in 4-6 weeks 6 min walk ALLAN OWENS MD Sep 15, 2016 11:45
--- NOTE | 2016-09-15 13:46 | PDOC ---
Progress Note Subjective Subjective Air leak persists. ROS ROS No nausea No vomiting No pain No rash Vital Sign Vital Signs Vital Signs Date Time Temp Pulse Resp B/P Pulse Ox O2 Delivery O2 Flow Rate FiO2 09/15/16 11:16 18 94 Room Air 09/15/16 11:00 97.6 119 121/81 97.6 09/15/16 10:36 2.0 Physical Exam PHYSICAL EXAM GENERAL: NAD, Alert HEENT: PERRL, OC/OP NECK: Supple, no JVD, no LN LUNGS: Clear HEART: S1S2, no gallop, no murmur ABD: Soft, NT, no organomegaly, no rebound EXT: No edema, no cyanosis MANAGER STRATEGY: Alert, oriented x 3, no focal neurologic deficit SKIN: No rash IV: ok Objective Assessment POD#10 s/p R VATS, drainage of empyema and pulmonary decortication. Prolonged air leak. Plan Plan of Care D/c home today with Heimlich valve Will see her weekly in clinic, until chest tube can come out. Additional week of po abx for empyema Next outpatient appointment September 23, at 11:30am, with CXR beforehand YOVANI WHALEY MD Sep 15, 2016 13:46
--- NOTE | 2016-09-15 13:47 | PDOC ---
Provider Note Provider Note DATE OF f/u: 09/15/2016 c/c: f/u of Leukocytosis in a patient with pneumonia. HISTORY OF PRESENT ILLNESS: The patient is a 55-year-old female who presented to [facility] 08/21/2016 with complaints of worsening cough and pleuritic chest pain and dyspnea of one week duration. In the Emergency Room, she was noted to have tachycardia and elevated WBC count of 57,000 and lactic acid of 4.1. She was diagnosed with sepsis. She underwent a chest x-ray that revealed right lower lobe pneumonia with small pneumonic effusion. She underwent CT scan of the abdomen on 08/21/2016 that revealed right lower lobe pneumonia. She underwent a CT scan of the chest on 08/22/2016 that revealed multilobar pneumonia, small to moderate multiloculated right pleural effusion, which might indicate a parapneumonic effusion versus empyema. There is also evidence of mild emphysema. She was started on antibiotics, however, she has progressive dyspnea and hypoxia and hence she was transferred to [facility]. Infectious Disease and pulmonary consultation was obtained, she was started on antibiotics. She underwent right chest tube insertion on 08/25/2016, 130 mL of whitish cloudy right pleural fluid was sent to the lab for evaluation. Her WBC count on 08/26/2016 was 32.2 and on 08/27/2016, it was 54.0. In addition, there was evidence of 23% bands, 5% metamyelocytes, 8%, myelocytes, 1% blasts and hence I was asked to see the patient for further evaluation of leukocytosis. Her hemoglobin was 11.9 with a platelet count of 536. PAST MEDICAL HISTORY: COPD. REVIEW OF SYSTEMS: no n/v, rt sided CP better PHYSICAL EXAMINATION: GENERAL APPEARANCE: The patient is a 55-year-old female who is in no acute cardiorespiratory distress. CHEST: Bilaterally symmetrical, decreased air entry on the right side. HEART: S1, S2 normal. ABDOMEN: Soft, nontender. No hepatosplenomegaly. CENTRAL NERVOUS SYSTEM: No focal neurological deficits. LABORATORY DATA: On 08/27/2016, WBC 54, hemoglobin 11.9, MCV 83, platelet count 536, bands 23%, metamyelocytes 5%, myelocytes 8% and peripheral smear on 08/26/2016 revealed presence of blasts at 1%. IMPRESSION AND PLAN: 1. Severe leukocytosis with a WBC count of 54,000 on 08/27/2016 and hemoglobin of 11.9, platelet count 536,000. There was evidence of elevated bands at 23%, elevated metamyelocytes of 5%, myelocytes of 8%, and 1% blasts. With the presence of sepsis, pneumonia and empyema, this is most likely reactive process. However, in view of worsening myelocytes and the presence of blasts, I would pursue with the bone marrow aspiration and biopsy to make sure that she does not have a primary bone marrow disorder. WBC now normal at 8.4 on 09/08/16, monitor cbc PRN S/p bone marrow bx 08/29/16. I d/w pathologist, no increased blasts to suggest leukemia, final results: The findings appear to be most compatible with a reactive neutrophilic leukocytosis and thrombocytosis. Agree with discharge plans. No f/u with me needed. f/u with PCP. 2. Pneumonia. Continue antibiotics. Appreciate ID consultation. 3. Empyema. Status post right thoracentesis and chest tube placement. s/p Right VATS, drainage of empyema and pulmonary decortication 09/05/16. Chest tube in place. 4. Sepsis with lactic acidosis. 5. Chronic obstructive pulmonary disease. Appreciate pulm f/u. 6. Anemia -stable Hb 8.5 SARAVANAN RAMIREZ MD Sep 15, 2016 13:47
[2016-09-15] MEDS ORDERED: AMOX1TAB61 PO ×2 (14:22→14:23)
[2016-09-15 15:00] VITALS: BP 119/70
== END 2016-09-15 16:10 | disposition home or self-care (01) | DRG 853 ==
LOC: 1 WEST ICU 12:30 → 5 NORTH 08-26 20:00 → 1 WEST ICU 09-05 17:35 → 2 NORTH 09-07 19:05
PROVIDERS: ADMIT Internal Medicine; ATTEND Internal Medicine
PROC: 5A09357 Assistance with Respiratory Ventilation, Less than 24 Consecutive Hours, Continuous Positive Airway Pressure (ICD-10-PCS; 2016-08-25)
PROC: 07DR3ZX Extraction of Iliac Bone Marrow, Percutaneous Approach, Diagnostic (ICD-10-PCS; 2016-08-29)
PROC: 0W9930Z Drainage of Right Pleural Cavity with Drainage Device, Percutaneous Approach (ICD-10-PCS; principal; 2016-08-31)
PROC: 3E0L3GC Introduction of Other Therapeutic Substance into Pleural Cavity, Percutaneous Approach (ICD-10-PCS; 2016-09-01)
PROC: 0BDN4ZZ Extraction of Right Pleura, Percutaneous Endoscopic Approach (ICD-10-PCS; 2016-09-05)
PROC: 30233N1 Transfusion of Nonautologous Red Blood Cells into Peripheral Vein, Percutaneous Approach (ICD-10-PCS; 2016-09-05)
PROC: 3E0L3GC Introduction of Other Therapeutic Substance into Pleural Cavity, Percutaneous Approach (ICD-10-PCS; 2016-09-13)
DX: A41.9 Sepsis, unspecified organism (principal); J96.01 Acute respiratory failure with hypoxia; J18.9 Pneumonia, unspecified organism; E43 Unspecified severe protein-calorie malnutrition; J86.9 Pyothorax without fistula; J90 Pleural effusion, not elsewhere classified; E87.2 Acidosis; J44.0 Chronic obstructive pulmonary disease with (acute) lower respiratory infection; J44.1 Chronic obstructive pulmonary disease with (acute) exacerbation; K51.90 Ulcerative colitis, unspecified, without complications; D68.9 Coagulation defect, unspecified; J95.812 Postprocedural air leak; Z79.82 Long term (current) use of aspirin; D64.9 Anemia, unspecified; E86.0 Dehydration; F17.200 Nicotine dependence, unspecified, uncomplicated; F32.9 Major depressive disorder, single episode, unspecified; G43.909 Migraine, unspecified, not intractable, without status migrainosus; I10 Essential (primary) hypertension; K21.9 Gastro-esophageal reflux disease without esophagitis; Z80.3 Family history of malignant neoplasm of breast; Z90.5 Acquired absence of kidney; Z90.710 Acquired absence of both cervix and uterus; Z79.899 Other long term (current) drug therapy; Z98.890 Other specified postprocedural states; J94.1 Fibrothorax; Y83.8 Other surgical procedures as the cause of abnormal reaction of the patient, or of later complication, without mention of misadventure at the time of the procedure
CPT/HCPCS: 32557; 36415; 36600; 38221; 71010; 71035; 71250; 71275; 77012; 80048; 80053; 82805; 82945; 83615; 83735; 83986; 84157; 84443; 84478; 85007; 85014; 85018; 85027; 85610; 85730; 86850; 86900; 86901; 86920; 87071; 87075; 87205; 87324; 88112; 88184; 88185; 88237; 88304; 88305; 88307; 88311; 88313; 93005; 93306; 94250; 94620; 94640; 94660; 94760; 99406; A4215; C1729; C1892; G0238; G0364; J0360; J1100; J1650; J1956; J2020; J2250; J2270; J2405; J2543; J2704; J2710; J2997; J3010; J3475; J3490; J7030; J7040; J7120; P9016; Q9967; 97110; 97116; 97530; J2001

== ENCOUNTER → 2016-09-23 | Outpatient (CLI) | payer BC ==
[2016-09-15 15:00] VITALS: BP 119/70
[~2016-09-23] MED LIST changes: +AMOX1TAB61 PO; +ASCO100065 PO; +ATROPINE PO; +CETI10CA PO; +CHOL10007 PO; +DIPHEN PO; +FENT1PAT92 TD; +LIPA1CAP PO; +METO25TA9 PO; +MORP30TA83 PO; +NIAC500T9 PO; +OLAN2.5T5 PO; +OMEP20TA63 PO; +OXYC10TA PO; +PRAS1TAB3 PO; +SUMA100T3 PO
--- NOTE | 2016-09-23 14:41 | RAD ---
Indication postop. PA and lateral views of the chest were obtained and are compared to an examination 8 days earlier. Pleural thickening and patchy pulmonary infiltrates persist and appear similar. Small right pneumothorax is again seen and not changed significantly in size. Right chest tube is noted. PICC line seen previously is no longer apparent and has been presumably removed. The heart and pulmonary vessels are unremarkable. The left lung is clear. IMPRESSION: Persistent pleural thickening and or parenchymal infiltrates in the right lung. Small right pneumothorax not changed significantly relative to the prior study
--- NOTE | 2016-09-23 16:06 | RAD ---
Indication postop. Single view chest was obtained at 1551 is compared to an examination approximately 2 hours earlier. There has not been a significant change. Pleural thickening and/or infiltrate in the right lung is similar. Right pneumothorax is also similar. Right chest tube is noted. IMPRESSION: No significant change compared to the study approximately 2 hours earlier
--- NOTE | 2016-09-23 16:39 | RAD ---
AP view chest x-ray 1624 Clinical indications: Removal of chest tube. Comparison: Same day performed at 1551. Findings: Right-sided chest tube has been removed. Right apical pneumothorax is unchanged measuring 24 mm from the apical edge. Again seen is lung consolidation within the lateral aspect of the mid and lower lung zone which is unchanged. Again seen is a small right-sided pleural effusion or pleural thickening which is stable. The left lung field remains clear. The heart size and mediastinum and pulmonary vasculature and both anju are stable. Old healed right rib cage fractures are evident. IMPRESSION: Removal of right-sided chest tube. Stable right apical pneumothorax and stable right lung infiltrates.
== END | disposition home or self-care (01) ==
LOC: ONC 13:53
PROVIDERS: ATTEND Thoracic Surgery (Cardiothoracic Vascular Surgery)
DX: Z98.890 Other specified postprocedural states (principal)
CPT/HCPCS: 71010; 71020

== ENCOUNTER → 2016-10-14 | Outpatient (CLI) | payer BC ==
[2016-09-15 15:00] VITALS: BP 119/70
--- NOTE | 2016-10-14 14:28 | RAD ---
Exam performed: 2 views chest. History: Status post lung surgery 1 month ago. Date of service: 10/14/16. Comparison: 09/23/16. He and lateral views chest findings: Heart size and mediastinal silhouette is within limits of normal. Pulmonary vascularity is unremarkable. Parenchymal opacities in the lateral aspect of the right lung is redemonstrated which appears decreased since previous study. Blunting of the right costophrenic angle. There is a emphysematous bulla or cavity containing air-fluid level in the right apex. Note is made that previously a small right apical pneumothorax was noted. The left lung is clear. Bilateral emphysematous changes Impression: 1. Parenchymal peripheral pleural-parenchymal opacity in the right lung appear improved since previous study with a small right pleural effusion. 2. Probable air-fluid level in the right apex. This may represent a air-fluid level containing cavity or a loculated pneumothorax that fluid level Follow-up exams may be obtained, alternatively evaluation with CT chest with contrast may be obtained to evaluate possibility of a cavitary lesion.
== END | disposition home or self-care (01) ==
LOC: RAD 13:30
PROVIDERS: ATTEND Thoracic Surgery (Cardiothoracic Vascular Surgery)
DX: Z09 Encounter for follow-up examination after completed treatment for conditions other than malignant neoplasm (principal); Z98.890 Other specified postprocedural states
CPT/HCPCS: 71020

== ENCOUNTER → 2018-08-09 | Day surgery (SDC) | payer BC ==
[~2018-08-09] MED LIST changes: +0.9 % SODIUM CHLORIDE 10 ML DISP.SYRIN. IV PRN; +BUPIVAC MPF-EPI 0.5%-1:200000 30 ML VIAL. ONE; +CALC1TAB PO; +CALCIUM CARBONATE 500 MG TAB.CHEW PO PRN; +CHOL100014 PO; -CHOL10007 PO; +DEXAMETHASONE SOD PHOS 20 MG/5 ML VIAL. ONE; +KETOROLAC 30 MG/ML INJ FOR OR. INJ ONE; +LIDOCAINE 1% PF 2 ML VIAL. ID PRN; +LIDOCAINE 2% PF Vial for OR 5 ML VIAL. ONE; +MAG HYDROX/ALUMINUM HYD/SIMETH 30 ML ORAL.SUSP PO PRN; +METO-239 PO; +METO1TAB31 PO; -METO25TA9 PO; +MIDAZOLAM HCL/PF 2 MG/2 ML VIAL. ONE; +NALOXONE 0.4 MG/ML VIAL. IV PRN; +OLAN2.5T11 PO; -OLAN2.5T5 PO; +ONDANSETRON PF 4 MG/2 ML VIAL. IV PRN; +ONDANSETRON PF 4 MG/2 ML VIAL. ONE; +PROCHLORPERAZINE 10 MG/2 ML VIAL. IV PRN; +PROPOFOL 20 ML IV ONE; +SEVOFLURANE > 120 MINUTES. IH ONE; +SIMETHICONE 80 MG TAB.CHEW PO PRN; +diphenhydrAMINE 50 MG/ML VIAL IV PRN; +diphenhydrAMINE HCL 25 MG CAPSULE PO PRN; +ePHEDrine PF IN SALINE 50 MG/5 ML DISP.SYRIN IV ONE; +fentaNYL PF VIAL 100 MCG/2 ML VIAL IV PRN; +fentaNYL PF VIAL 100 MCG/2 ML VIAL ONE; +oxyCODONE/APAP 5/325 1 TAB TABLET PO PRN; +silver sulfADIAZINE 1% CREAM 25GM TUBE. TP ONE
[2018-08-09] MEDS: IV RINGERS,LACTATED 1000ML 1,000 ML IV SCH ×2 (08:52→12:03)
--- NOTE | 2018-08-09 11:54 | PDOC ---
BRIEF OPERATIVE NOTE Date: Aug 09, 2018 Pre-Op Diagnosis extensive vulvar and perianal warts Post-Op Diagnosis same Procedure Performed surgical excision of large ones and laser of vulvar/perianal warts Surgeon Dr. Adelaide Leon Anesthesiologist Dr. Hooks Anesthesia Type: General Blood Loss 50cc IV Fluid see anesthesia records Urine Output straight cath prior to procedure Specimens Obtained warts Findings extensive vulvar and perianal warts too numerous to count of all shapes and sizes Complications none Operative Note [id number] ADELAIDE LEON MD Aug 09, 2018 11:54
[2018-08-09] MEDS: fentaNYL PF VIAL 100 MCG/2 ML VIAL IV PRN ×2 (12:12→12:28)
[2018-08-09 13:15] VITALS: BP 160/82
--- NOTE | 2018-08-09 13:33 | OP ---
DATE OF SURGERY: 08/09/2018 PREOPERATIVE DIAGNOSIS: Extensive vulvar and perianal warts. POSTOPERATIVE DIAGNOSIS: Extensive vulvar and perianal warts. PROCEDURE: Surgical excision of large ones and laser vaporization of vulvar and perianal warts. SURGEON: Vanna Simon MD MARINE EQUIPMENT SALES ENGINEER: OR personnel. ANESTHESIA: General. ANESTHESIOLOGIST: Hardeep Hooks MD ESTIMATED BLOOD LOSS: 50 mL. URINE OUTPUT: Straight cath prior to procedure. SPECIMEN: Perianal warts on the perineal body. FINDINGS: Just extensive vulvar, perianal and at the vaginal opening at the introitus, just everywhere labial, clitoral, introitus, perineal body and especially perirectal warts. Too numerous to count of all shapes and sizes. COMPLICATIONS: None. DESCRIPTION OF PROCEDURE: This patient was taken to the operating room where general anesthesia was placed. The patient was placed in dorsal lithotomy position in Ulcies stirrups. The patient's vagina was prepped with vinegar and she was straight cathed prior to procedure. Upon my entry into the room, a timeout was performed. Once everyone agreed, the laser was in there, we started at 10 peterson and I did the smaller ones on the labial and clitoris and the vaginal opening at the introitus and then started going down to the thicker ones on the perineal body and around the anal area and went up to 20, then eventually went up to 30 and finally ended at 40 for some of the thicker ones. I did cut off 3 or 4 very large pedunculated cauliflower type warts, lasered the base of those and then ended up putting a stitch in a few of those as well with 2-0 Vicryl at the end. The warts went entirely around her anal opening, somewhere even on the anal opening itself, but they extended out a good 2-3 cm from the anus in all directions and of course the perineal body. It took an hour and 45 minutes to do this. They were extensive. Once that was done and I kind of used a 4 x 4 to gently denude them to make sure that the top layer was off, I went back over the ones that needed to be redone until I was down to a fresh layer of the skin and they were smooth. Once this was done, the procedure was ended. Silvadene cream was placed over all areas of the givens and the patient is currently being awakened from anesthesia. VANNA SIMON MD DR: JOSELUIS/jacob JOB#: [id number] / [id number]
--- NOTE | 2018-08-10 16:08 | PATHOLOGY ---
[facility] Accession Number: [id number] . 01 Material submitted: . VULVAR WARTS . 01 Clinical history: . Extensive vulvar and perianal warts . 02 Diagnosis: Segments (5) of skin, vulvar lesions, excision: - Vulvar condylomata. (JPM:edwina; 08/10/2018) QMS/08/10/2018 . 02 Comment: There is no evidence of malignancy. . 02 Electronically signed: . Edi Reis MD, Pathologist NPI- [id number] . 01 Gross description: . The specimen is received in formalin, labeled "Miesha Gómez, vulvar warts" and consists of 5 verrucoid segments of pink-bah skin measuring between 0.9 x 0.7 x 0.4 cm and 1.8 x 1.0 x 0.6 cm. The margins are inked black. Risk Management Intern sections from each are submitted in A1-A2. (SDY; 08/09/2018) SYU/SYU . 02 Pathologist provided ICD-10: A63.0 . 02 CPT . 676907 Specimen Comment: A courtesy copy of this report has been sent to Specimen Comment: [phone], . Specimen Comment: Report sent to and Specimen Comment: A duplicate report has been generated due to demographic updates. Performed at: 01 [facility] [address], [place] [id number] MD Juan Gomez MD Phone: [phone] Performed at: 02 [facility] [address] [place], [place] [id number] MD Edi Reis MD Phone: [phone]
== END | disposition home or self-care (01) ==
LOC: SURG 07:56
PROVIDERS: ATTEND Obstetrics & Gynecology
DX: A63.0 Anogenital (venereal) warts (principal); Z88.5 Allergy status to narcotic agent; F17.210 Nicotine dependence, cigarettes, uncomplicated; Z72.89 Other problems related to lifestyle; Z79.899 Other long term (current) drug therapy; Z80.3 Family history of malignant neoplasm of breast; Z90.710 Acquired absence of both cervix and uterus; Z90.5 Acquired absence of kidney
CPT/HCPCS: 56515; 88305; A7015; J0690; J0780; J1100; J1885; J2001; J2250; J2405; J2704; J3010; J3490

== ENCOUNTER 2019-02-06 08:40 | Day surgery (SDC) | payer BC ==
[~2019-02-06] VITALS: Ht 167.6 cm; Wt 58.0 kg
[~2019-02-06 08:40] MED LIST changes: -0.9 % SODIUM CHLORIDE 10 ML DISP.SYRIN. IV PRN; -BUPIVAC MPF-EPI 0.5%-1:200000 30 ML VIAL. ONE; -CALCIUM CARBONATE 500 MG TAB.CHEW PO PRN; -DEXAMETHASONE SOD PHOS 20 MG/5 ML VIAL. ONE; -KETOROLAC 30 MG/ML INJ FOR OR. INJ ONE; +LIALDA1.2 GM PO; -LIDOCAINE 1% PF 2 ML VIAL. ID PRN; -LIDOCAINE 2% PF Vial for OR 5 ML VIAL. ONE; -MAG HYDROX/ALUMINUM HYD/SIMETH 30 ML ORAL.SUSP PO PRN; -MESA1.2T PO; -MIDAZOLAM HCL/PF 2 MG/2 ML VIAL. ONE; -NALOXONE 0.4 MG/ML VIAL. IV PRN; -ONDANSETRON PF 4 MG/2 ML VIAL. IV PRN; -ONDANSETRON PF 4 MG/2 ML VIAL. ONE; -PROCHLORPERAZINE 10 MG/2 ML VIAL. IV PRN; -PROPOFOL 20 ML IV ONE; -SEVOFLURANE > 120 MINUTES. IH ONE; -SIMETHICONE 80 MG TAB.CHEW PO PRN; -diphenhydrAMINE 50 MG/ML VIAL IV PRN; -diphenhydrAMINE HCL 25 MG CAPSULE PO PRN; -ePHEDrine PF IN SALINE 50 MG/5 ML DISP.SYRIN IV ONE; -fentaNYL PF VIAL 100 MCG/2 ML VIAL IV PRN; -fentaNYL PF VIAL 100 MCG/2 ML VIAL ONE; -oxyCODONE/APAP 5/325 1 TAB TABLET PO PRN; -silver sulfADIAZINE 1% CREAM 25GM TUBE. TP ONE
[2019-02-06] MEDS ORDERED: IV RINGERS,LACTATED 1000ML 1,000 ML IV SCH (08:50)
[2019-02-06] MEDS ORDERED: fentaNYL PF VIAL 100 MCG/2 ML VIAL IV PRN (09:00)
[2019-02-06] MEDS ORDERED: MIDAZOLAM HCL/PF 2 MG/2 ML VIAL. IV PRN (09:00)
[2019-02-06] MEDS ORDERED: LIDOCAINE 1% PF 2 ML VIAL. ID PRN (09:00)
[2019-02-06] MEDS ORDERED: BUPIVACAINE-EPI 0.25%-1:200000 MPF 30 ML VIAL. ONE (09:04)
[2019-02-06] MEDS ORDERED: ALBUTEROL SULFATE 2.5 MG/3 ML NEBU. NEB ONE (09:45)
[2019-02-06 09:50] LABS: BASO # 0.1 x10^3/uL (0.0-0.2); BASO % 1 % (0-3); EOS # 0.1 x10^3/uL (0.0-0.7); EOS % 1 % (0-3); HEMATOCRIT 44.5 % (36.0-47.0); HEMOGLOBIN 14.9 g/dL (12.0-15.5); LYMPH # 1.1 x10^3/uL (1.0-4.8); LYMPH % 8 % (24-48); MEAN CORPUSCULAR HEMOGLOBIN 30 pg (25-35); MEAN CORPUSCULAR HGB CONC 34 g/dL (31-37); MEAN CORPUSCULAR VOLUME 90 fL (79-100); MONO # 0.4 x10^3/uL (0.0-1.1); MONO % 3 % (0-9); NEUT # 12.8 x10^3uL (1.8-7.7); NEUT % 88 % (31-73); PLATELET COUNT 253 x10^3/uL (140-400); RED BLOOD COUNT 4.94 x10^6/uL (3.50-5.40); RED CELL DISTRIBUTION WIDTH 15.2 % (11.5-14.5); WHITE BLOOD COUNT 14.4 x10^3/uL (4.0-11.0)
[2019-02-06] MEDS ORDERED: fentaNYL PF VIAL 100 MCG/2 ML VIAL ONE ×3 (10:30→12:11)
[2019-02-06] MEDS ORDERED: MIDAZOLAM HCL/PF 2 MG/2 ML VIAL. ONE (10:30)
[2019-02-06] MEDS ORDERED: silver sulfADIAZINE 1% CREAM 25GM TUBE. TP ONE (10:40)
[2019-02-06] MEDS ORDERED: DEXAMETHASONE SOD PHOS 4 MG/ML VIAL ONE (10:42)
[2019-02-06] MEDS ORDERED: LIDOCAINE 2% PF 5 ML VIAL. ONE (10:42)
[2019-02-06] MEDS ORDERED: PROPOFOL 20 ML IV ONE (10:42)
[2019-02-06] MEDS ORDERED: ONDANSETRON PF 4 MG/2 ML VIAL. ONE (10:42)
[2019-02-06] MEDS ORDERED: ceFAZolin 2GM PREMIX 2 GM/50 ML BAG IV ONE (12:00)
[2019-02-06] MEDS ORDERED: SEVOFLURANE > 120 MINUTES. IH ONE (12:03)
[2019-02-06] MEDS ORDERED: KETOROLAC 30 MG/ML INJ FOR OR. INJ ONE (12:03)
--- NOTE | 2019-02-06 12:06 | PDOC ---
BRIEF OPERATIVE NOTE Date: Feb 06, 2019 Pre-Op Diagnosis extensive vulvar warts Post-Op Diagnosis same Procedure Performed Co2 laser and excision of vulvar warts Surgeon Dr. Adelaide Leon Anesthesiologist Dr. Beckford Anesthesia Type: General Blood Loss 10cc IV Fluid see anesthesia records Urine Output straight cath prior to procedure Specimens Obtained warts Findings extensive vulvar warts from mons pubis, clitoris, bilateral labia and buttocks Complications none Operative Note [id number] ADELAIDE LEON MD Feb 06, 2019 12:06
[2019-02-06] MEDS ORDERED: MORPHINE SULFATE 2 MG/ML VIAL. ONE (12:11)
[2019-02-06] MEDS: fentaNYL PF VIAL 100 MCG/2 ML VIAL IV PRN ×2 (12:15→12:27)
[2019-02-06] MEDS ORDERED: diphenhydrAMINE HCL 25 MG CAPSULE PO PRN (12:15)
[2019-02-06] MEDS ORDERED: 0.9 % SODIUM CHLORIDE 10 ML DISP.SYRIN. IV PRN (12:15)
[2019-02-06] MEDS ORDERED: MAG HYDROX/ALUMINUM HYD/SIMETH 30 ML ORAL.SUSP PO PRN (12:15)
[2019-02-06] MEDS ORDERED: NALOXONE 0.4 MG/ML VIAL. IV PRN (12:15)
[2019-02-06] MEDS ORDERED: SIMETHICONE 80 MG TAB.CHEW PO PRN (12:15)
[2019-02-06] MEDS ORDERED: HYDROcodone/APAP 5/325MG 1 TAB TABLET PO PRN (12:15)
[2019-02-06] MEDS ORDERED: diphenhydrAMINE 50 MG/ML VIAL IV PRN (12:15)
[2019-02-06] MEDS ORDERED: CALCIUM CARBONATE 500 MG TAB.CHEW PO PRN (12:15)
[2019-02-06] MEDS ORDERED: HYDROmorphone 2 MG/ML VIAL ONE (12:21)
[2019-02-06] MEDS ORDERED: HYDROmorphone 2 MG/ML VIAL IM ONE (12:30)
[2019-02-06] MEDS ORDERED: HYDROmorphone 2 MG/ML VIAL IV ONE (12:30)
[2019-02-06] MEDS ORDERED: HYDR-2761 PO (12:38)
[2019-02-06] MEDS ORDERED: HYDROcodone/APAP 5/325MG 1 TAB TABLET PO ONE (12:45)
--- NOTE | 2019-02-06 12:46 | OP ---
DATE OF SURGERY: 02/06/2019 PREOPERATIVE DIAGNOSIS: Extensive recurrent vulvar warts. POSTOPERATIVE DIAGNOSIS: Extensive recurrent vulvar warts. PROCEDURE: CO2 laser and excision of vulvar warts. SURGEON: Vanna Leon M.D. SNUFF MAKER: OR Personnel. ANESTHESIOLOGIST: Ralph Beckford MD. ANESTHESIA: General. ESTIMATED BLOOD LOSS: 10 mL. IV FLUIDS: Please see anesthesia records. URINE OUTPUT: With a straight cath prior to procedure. SPECIMENS: Warts. FINDINGS: Extensive vulvar warts from the mons pubis, clitoris, bilateral labia minora, introitus, out on to the lateral buttocks. COMPLICATIONS: None. DESCRIPTION OF PROCEDURE: This patient was taken to the operating room where general anesthesia was placed. She was placed in a dorsal lithotomy position [facility]. Her vaginal and buttocks area were cleansed and then prepped and draped in the normal sterile fashion and a straight cath urine was done prior to my arrival. Upon my arrival, once a timeout was performed and everyone agreed, I did begin by excising probably at least 20-30 warts with the Metzenbaum scissors and the pickups and then the laser was used first at 10 and put a cautery on the base of those for hemostasis and then I started at 10; however, we had to bump it to 20 because they were so extensive and thick, they were even penetrating in. By going around and putting the laser on standby in between washing off the areas, cleaning it off and going back over it, to try to make sure we were down to a good layer of skin. It took almost an hour to do all these warts as they were so extensive, but there were some on the mons, some on the clitoral boateng, labia minora, labia majora, lateral buttocks, a few perirectal, the whole rectum itself, but I did not do direct the actual rectum itself. I did below it and lateral to it, but not the actual rectum. The perineal body was pretty clean, but extensive lateral from the labia down and then lateral buttocks were done. Once that was done and there was minimal bleeding, Silvadene cream was placed over all of this and she is currently being awakened from the anesthesia. VANNA LEON MD DR: JOSELUIS/jacob JOB#: [id number] / [id number]
[2019-02-06 13:07] VITALS: BP 170/74
--- NOTE | 2019-02-08 09:11 | PATHOLOGY ---
[facility] Accession Number: [id number] . 01 Material submitted: . vulva - VULVAR WARTS . 01 Clinical history: . Vulvar warts . 02 Diagnosis: Segments of skin and squamous mucosa, removal of vulvar warts: - Vulvar condylomata. . ([facility]:mm; 02/07/2019) [facility]/02/07/2019 . 02 Comment: There is no evidence of malignancy. . ([facility]:mm; 02/07/2019) . 02 Electronically signed: . Edi Reis MD, Pathologist NPI- [id number] . 01 Gross description: . The specimen is received in formalin, labeled "Miesha Gómez, vulvar warts" and consists of multiple (more than 10) verrucoid pink-bah and polypoid skin lesions measuring between 0.4 x 0.3 cm and 1.3 x 0.9 x 0.5 cm. The identifiable margins of the largest segments are inked black. The largest segments are sectioned and entirely submitted in A1-A2. The rest of the specimen is submitted as an aggregate in A3. (SD; 02/06/2019) SYU/SYU . 02 Pathologist provided ICD-10: A63.0 . 02 CPT . 361855 Specimen Comment: A courtesy copy of this report has been sent to Specimen Comment: [phone], . Specimen Comment: Report sent to / DR VALLES Performed at: 01 [facility] [address], [place], [place] [id number] MD Juan Gomez MD Phone: [phone] Performed at: 02 [facility] [address] [place], [place] [id number] MD Edi Reis MD Phone: [phone]
== END 2019-02-06 13:45 | disposition home or self-care (01) ==
LOC: SURG 08:40
PROVIDERS: ATTEND Obstetrics & Gynecology
DX: A63.0 Anogenital (venereal) warts (principal); F17.210 Nicotine dependence, cigarettes, uncomplicated; Z79.899 Other long term (current) drug therapy; Z72.89 Other problems related to lifestyle; Z90.710 Acquired absence of both cervix and uterus; Z94.0 Kidney transplant status
CPT/HCPCS: 36415; 56501; 85025; 88305; 94640; A7015; J0696; J1100; J1170; J1885; J2001; J2250; J2405; J2704; J3010; J7120; J7613; J2270

== ENCOUNTER 2019-09-25 05:58 | Day surgery (SDC) | payer BC ==
[2019-09-24] MEDS: fentaNYL PF VIAL 100 MCG/2 ML VIAL IV PRN (10:05)
[~2019-09-25 05:58] MED LIST changes: +HYDR-2761 PO; +PROG200C10 PO; -TIZA4TAB PO; +TIZA4TAB2 PO
[2019-09-25] MEDS ORDERED: PRED20TA PO (06:31)
[2019-09-25] MEDS ORDERED: LIDOCAINE 1% PF 2 ML VIAL. ID PRN (07:00)
[2019-09-25] MEDS ORDERED: fentaNYL PF VIAL 100 MCG/2 ML VIAL IV PRN (07:00)
[2019-09-25] MEDS ORDERED: ONDANSETRON PF 4 MG/2 ML VIAL. IV PRN (07:00)
[2019-09-25] MEDS ORDERED: PROCHLORPERAZINE 10 MG/2 ML VIAL. IV PRN (07:00)
[2019-09-25] MEDS ORDERED: IV RINGERS,LACTATED 1000ML 1,000 ML IV SCH (07:00)
[2019-09-25] MEDS ORDERED: silver sulfADIAZINE 1% CREAM 25GM TUBE. TP ONE (07:04)
[2019-09-25] MEDS ORDERED: LIDOCAINE 1%/EPI 1:100,000 20 ML VIAL. ONE (07:05)
[2019-09-25] MEDS ORDERED: ONDANSETRON PF 4 MG/2 ML VIAL. ONE (07:15)
[2019-09-25] MEDS ORDERED: fentaNYL PF VIAL 100 MCG/2 ML VIAL ONE ×2 (07:15→09:15)
[2019-09-25] MEDS ORDERED: DEXAMETHASONE SOD PHOS 4 MG/ML VIAL ONE (07:15)
[2019-09-25] MEDS ORDERED: LIDOCAINE 2% PF 5 ML VIAL. ONE (07:15)
[2019-09-25] MEDS ORDERED: MIDAZOLAM HCL/PF 2 MG/2 ML VIAL. ONE (07:15)
[2019-09-25] MEDS ORDERED: PROPOFOL 20 ML IV ONE (07:15)
[2019-09-25] MEDS ORDERED: SEVOFLURANE 61 TO 120 MINUTES. IH ONE (08:31)
[2019-09-25] MEDS ORDERED: KETOROLAC 30 MG/ML VIAL. ONE (08:38)
[2019-09-25] MEDS ORDERED: METOPROLOL SUCC 24HR ER 25 MG TAB.ER.24H. PO SCH (09:00)
--- NOTE | 2019-09-25 09:06 | PDOC ---
BRIEF OPERATIVE NOTE Date: Sep 25, 2019 Pre-Op Diagnosis vulvar and perianal warts Post-Op Diagnosis same Procedure Performed laser of vulvar warts and excision of perirectal warts Surgeon Dr. Adelaide Leon Anesthesiologist Dr. Schrader Anesthesia Type: General Blood Loss 25cc IV Fluid see anesthesia Urine Output straight cath prior Specimens Obtained perirectal warts Findings scattered vulvar warts from clitoral boateng and mons pubis all the way down to very enlarged thick perirectal warts (much improved from last 2 treatments on the vulvar warts) Complications none Operative Note [id number] ADELAIDE LEON MD Sep 25, 2019 09:06
[2019-09-25] MEDS ORDERED: diphenhydrAMINE 50 MG/ML VIAL IV PRN (09:15)
[2019-09-25] MEDS ORDERED: 0.9 % SODIUM CHLORIDE 10 ML DISP.SYRIN. IV PRN (09:15)
[2019-09-25] MEDS ORDERED: SIMETHICONE 80 MG TAB.CHEW PO PRN (09:15)
[2019-09-25] MEDS ORDERED: CALCIUM CARBONATE 500 MG TAB.CHEW PO PRN (09:15)
[2019-09-25] MEDS ORDERED: oxyCODONE/APAP 5/325 1 TAB TABLET PO PRN ×2 (09:15→10:45)
[2019-09-25] MEDS ORDERED: MAG HYDROX/ALUMINUM HYD/SIMETH 30 ML ORAL.SUSP PO PRN (09:15)
[2019-09-25] MEDS ORDERED: diphenhydrAMINE HCL 25 MG CAPSULE PO PRN (09:15)
[2019-09-25] MEDS ORDERED: NALOXONE 0.4 MG/ML VIAL. IV PRN (09:15)
[2019-09-25] MEDS: fentaNYL PF VIAL 100 MCG/2 ML VIAL IV PRN (09:17)
[2019-09-25 09:45] VITALS: BP 149/65
[2019-09-25] MEDS ORDERED: oxyCODONE/APAP 5/325 1 TAB TABLET PO ONE (09:45)
[2019-09-25] MEDS ORDERED: SILV20CR14 TP (09:57)
--- NOTE | 2019-09-25 10:08 | OP ---
DATE OF SURGERY: 09/25/2019 PREOPERATIVE DIAGNOSES: Vulvar warts and extensive perianal warts. POSTOPERATIVE DIAGNOSES: Vulvar warts and extensive perianal warts. PROCEDURE: Laser of vulvar warts and excision of perirectal warts. SURGEON: Vanna Leon MD. JR. JAVA DEVELOPER: OR personnel. ANESTHESIOLOGIST: Luis M Schrader MD. ANESTHESIA: General. BLOOD LOSS: 25 mL. URINE OUTPUT: With a straight cath prior to procedure. SPECIMENS: Perirectal warts. FINDINGS: She had some scattered vulvar warts from the mons pubis, clitoral boateng, labia minora, labia majora all the way down to the very thickened enlarged perirectal warts; however, I must add this is her third treatment with me and they are significantly improved from her past 2 treatments on the vulvar area. COMPLICATIONS: None. DESCRIPTION OF PROCEDURE: This patient was taken to the operating room where general anesthesia was placed. The patient was placed in dorsal lithotomy position in Ulices stirrups. The patient was prepped and draped in the normal sterile fashion. A timeout was performed. Once everyone agreed, the laser was set to 10 and I did start on the mons, clitoral and labia majora, labia minora warts. Part way through, I believe it was increased to 15. Once we did that and treated all of those, I had it on standby, reexamined. I did not see very many others. I went back and treated the ones I could find and took care of all of those. At this point, I did pickups and a scalpel of 15 blade and excised. Each quarter like around the anal area of the warts where they were on the fold at the opening of the anal opening where they were. I used the handheld cautery on a coagulation 30 setting to obtain hemostasis and then 3-0 Vicryl was used to close these in a running locked fashion. I excised 4 different areas, almost like a quarter top, top left, bottom left, top right, bottom right, made sure that the anal opening was good. I could get my finger in and so all the way around it and it was completely patent and open and did not go deep, but she has basically a running suture almost around the entire anus at the opening but the mucosa is normal and comes out and can be seen easily. Once this was all done, the perirectal warts are being sent for pathology. The bleeding was good. Silvadene cream was placed over all the laser sites and even the perirectal opening sites and ice will be placed over the perirectal area. The patient tolerated the procedure well. She was awakened from anesthesia and brought to recovery room in stable condition. VANNA LEON MD DR: JOSELUIS/jacob JOB#: [id number] / [id number]
--- NOTE | 2019-09-27 09:07 | PATHOLOGY ---
[facility] Accession Number: [id number] . 01 Material submitted: . rectum - HIEN-RECTAL WARTS . 01 Clinical history: . vulvar warts . 02 Diagnosis: Segments of skin and squamous mucosa, laser removal hien-rectal lesions: - Perirectal condylomata. LB 09/27/2019 0802 Local . 02 Comment: There is no high grade dysplasia or evidence of malignancy. (JPM/db; 09/26/2019) . 02 Electronically signed: . Edi Reis MD, Pathologist NPI- [id number] . 01 Gross description: . The specimen is received in formalin, labeled "Miesha Gómez", "perirectal warts". Received are multiple segments of wrinkled, pale bah-pink skin and soft tissue, ranging in size from 0.6 cm to 1.5 cm. The cauterized margin on each segment is inked black. Sectioning reveals a homogenous, pale bah cut surface with no distinct solid masses or nodules identified. A tax compliance representative section from each segment is submitted in cassette A1.(SNA; 09/25/2019) ELSI/ANUM 09/25/2019 1706 Local . 02 Pathologist provided ICD-10: A63.0 . 02 CPT . 070474 Specimen Comment: A courtesy copy of this report has been sent to [phone], [phone] Specimen Comment: [phone], Specimen Comment: Report sent to , and Performed at: [address], [place], [place] [id number] MD Juan Gomez MD Phone: [phone] Performed at: 02 [facility] [address] [place], [place] [id number] MD Edi Reis MD Phone: [phone]
== END 2019-09-25 10:30 | disposition home or self-care (01) ==
LOC: SURG 05:58
PROVIDERS: ATTEND Obstetrics & Gynecology
DX: A63.0 Anogenital (venereal) warts (principal); G43.909 Migraine, unspecified, not intractable, without status migrainosus; I10 Essential (primary) hypertension; E78.00 Pure hypercholesterolemia, unspecified; D64.9 Anemia, unspecified; F41.9 Anxiety disorder, unspecified; Z87.01 Personal history of pneumonia (recurrent); Z87.891 Personal history of nicotine dependence; Z90.710 Acquired absence of both cervix and uterus; Z90.721 Acquired absence of ovaries, unilateral; Z72.89 Other problems related to lifestyle
CPT/HCPCS: 46922; 56515; 88305; A7015; J1100; J1885; J2001; J2250; J2405; J2704; J3010; J3490; A4461